=== PATIENT | female | born 1975 | race Caucasian/White ===

== ENCOUNTER → 2019-12-09 14:25 | Outpatient (CLI) | payer BC, SELFPAY ==
--- NOTE | ~2019-12-09 | XR_ITS ---
XR chest 2V DATE: 12/09/2019 14:50 INDICATION: Dyspnea. Weakness. TECHNIQUE: PA and lateral views COMPARISON: 08/08/2018 PA and lateral chest FINDINGS: Normal heart size. No hilar or mediastinal enlargement. No pulmonary infiltrate or consolid ation, pleural effusion or pulmonary vascular congestion or pneumothorax. Surgical clips, right upper quadrant. IMPRESSION: No active cardiopulmonary disease or significant change since 08/08/2018 Reviewed, dictated and finalized at location A. IMPRESSION: No active cardiopulmonary disease or significant change since 2017
--- NOTE | ~2019-12-09 | XR_ITS ---
XR cervical spine 4-5V DATE: 12/09/2019 14:49 INDICATION: Numbness of both hands TECHNIQUE: Upright AP, lateral, open mouth and bilateral oblique views COMPARISON: None FINDINGS: There is straightening and mild reversal of cervical curvature. There is moderate degenerative disc disease at C3-4, C4-5 and moderately severe degenerative disease at C5-6. There is mild degenerative disc disease at C6-7. There is uncovertebral joint spurring encroaching anteriorly upon bilateral C4, C5, C6 and to a lesse r extent C7 neural foramina. No fracture or dislocation or locked facet or prevertebral soft tissue swelling. IMPRESSION: Straightening/mild reversal cervical curvature Multilevel degenerative disease, most pronounced at C5-6 Uncovertebral joint spurring at multiple levels with encroachment upon bilateral C4-C7 neural foramin a Reviewed, dictated and finalized at location A. IMPRESSION: Straightening/mild reversal cervical curvature Multilevel degenerative disease, most pronounced at C5-6 Uncovertebral joint spurring at multiple levels with encroachment upon bilatera l C4-C7 neural foramina
== END ==
PROVIDERS: PCP Emergency Medicine; Visit Provider Emergency Medicine
DX: R05 Cough (principal); M50.322 Other cervical disc degeneration at C5-C6 level
CPT/HCPCS: 71046; 72050

== ENCOUNTER 2020-01-16 10:17 | Emergency (ER) | payer BC, SELFPAY ==
[2020-01-16 10:25] VITALS: BP 142/84; PULSE 74; RESP 14; TEMP 37; O2SAT 100
--- NOTE | 2020-01-16 10:36 | ED.DENTAL ---
HPI - Dental/Oral General Chief complaint: Dental/Oral Stated complaint: TOOTHACHE Time Seen by Provider: 01/16/20 10:19 History of Present Illness HPI Narrative: Patient presents with 4 weeks of left lower molar dental pain. She has been trying to get appointment but offices are not open due to COVID. She has been alternating ibuprofen and Tylenol without improvement. She has not had any fever chills or sweats. She does not have a private dentist. The tooth has been broken along the old filling line, but now she has facial swelling. 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 She has had her gallbladder out her tonsils out, and a . Smokes cigarettes. Takes Celexa for mood disorder, Prilosec for reflux. Complaint: tooth pain and tooth injury Onset (ago): week(s) Duration: constant Severity: severe Severity scale (1-10): 8 Relieving factors: nothing Exacerbating factors: chewing Context: history of dental caries Associated symptoms: gum swelling Related Data Home Medications Medication Instructions Recorded Confirmed citalopram 20 mg PO DAILY 01/16/20 omeprazole magnesium [Prilosec OTC] 20 mg PO DAILY 01/16/20 Allergies Allergy/AdvReac Type Severity Reaction Status Date / Time No Known Allergies Allergy Verified 01/16/20 10:28 Review of Systems Review of Systems: Narrative: CONSTITUTIONAL: Denies fever, chills, or sweats. EYES: Denies visual changes, redness, or discharge. ENT: Denies rhinorrhea, congestion, sore throat, or otalgia. CARDIOVASCULAR: Denies chest pain, palpitations, or edema. RESPIRATORY: Denies cough or dyspnea. GASTROINTESTINAL: Denies abdominal pain, nausea, vomiting, or diarrhea. GENITOURINARY: Denies dysuria or hematuria. SKIN: Denies rash or itching. MUSCULOSKELETAL: Denies back pain, joint pain, or myalgia. NEUROLOGIC: Denies headache, numbness, or weakness. PSYCHIATRIC: Denies anxiety or depression. [facility] Past Medical History Medical History (Updated 01/16/20 @ 10:43 by Vidhi Pope MD) Dental caries History of tonsillitis Surgical History Surgical History (Updated 01/16/20 @ 10:39 by Vidhi Pope MD) History of History of cholecystectomy Social History Social History (Updated 01/16/20 @ 10:39 by Vidhi Pope MD) Smoking status: Current every day smoker Alcohol intake: never Substance use: never Gender identity (if verbalized by the patient): Female Exam Narrative: Exam Narrative: GENERAL: Well-appearing, well-nourished, and in no acute distress. HEAD: Normocephalic, atraumatic. EYES: PERRLA and EOMI. ENT: Nares clear, no rhinorrhea or epistaxis. Mucous membranes moist. Swelling and tenderness about the gum around tooth 18. Slight facial swelling on the left lower cheek. NECK: Supple. CHEST: Clear to auscultation. No respiratory distress. HEART: Regular rate and rhythm. No murmur heard. Normal peripheral pulses. ABDOMEN: Soft, nontender, nondistended, normal active bowel sounds. EXTREMITIES: Normal range of motion. No edema. SKIN: Warm, dry, no rash. NEURO: No focal deficits. Alert and oriented x3. PSYCH: Normal mood and affect. Const: General: no acute distress Orientation/consciousness: patient oriented x3 Course Vital Signs Vital signs: Vital Signs Temperature 98.6 F 01/16/20 10:25 Pulse Rate 74 01/16/20 10:25 Respiratory Rate 14 01/16/20 10:25 Blood Pressure 142/84 H 01/16/20 10:25 Pulse Oximetry 100 01/16/20 10:25 Temperature 98.6 F 01/16/20 10:25 Pulse Rate 74 01/16/20 10:25 Respiratory Rate 14 01/16/20 10:25 Blood Pressure 142/84 H 01/16/20 10:25 Pulse Oximetry 100 01/16/20 10:25 MDM - Dental/Oral MDM Narrative Medical decision making narrative: She just wants to have the tooth pulled, but cannot find a dentist open with this COVID situation. I recommended she try the urgent dental clinic on [facility]. Hopefully they will be open on Saturday
[2020-01-16] MEDS: PENICILLIN V POTASSIUM 250 MG TABLET 500 MG PO (10:46)
[2020-01-16] MEDS: KETOROLAC 15 MG/ML VIAL (*BKC) IM (10:47)
[2020-01-16 10:53] VITALS: BP 138/68; PULSE 70; RESP 12; O2SAT 99
== END 2020-01-16 10:58 | disposition home or self-care (01) ==
PROVIDERS: Emergency Provider Emergency Medicine; PCP Emergency Medicine
DX: K04.7 Periapical abscess without sinus (principal); K02.9 Dental caries, unspecified; K21.9 Gastro-esophageal reflux disease without esophagitis; F17.200 Nicotine dependence, unspecified, uncomplicated
CPT/HCPCS: 96372; 99283; A9270; J1885

== ENCOUNTER 2020-03-03 15:45 | Outpatient (CLI) | payer BC, SELFPAY ==
--- NOTE | ~2020-03-03 | MM_ITS ---
EXAMINATION: MM screening andre BI w angel HISTORY: Screening mammogram TECHNIQUE: Craniocaudal and mediolateral oblique 3-D tomosynthesis images were obtained and synthetic 2-D images were generated. CAD analysis was submitted and interpreted. COMPARISON: 10/15/2018 bilateral digital screening mammogram BREAST PARENCHYMAL COMPOSITION: There are scattered areas of fibroglandular density. FINDINGS: There is no evidence of suspicious mass, calcification, or architectural distortion to sugg est malignancy in either breast. There has been no suspicious interval change. IMPRESSION: 1. No mammographic evidence of malignancy. 2. Recommend routine screening mammography in one year. BI-RADS Category 1: Negative Reviewed, dictated and finalized at location A.
== END 2020-03-03 15:46 | disposition home or self-care (01) ==
LOC: ANHIMG 15:47
PROVIDERS: PCP Emergency Medicine; Visit Provider Emergency Medicine
DX: Z12.31 Encounter for screening mammogram for malignant neoplasm of breast (principal)
CPT/HCPCS: 77063; 77067

== ENCOUNTER 2020-03-16 14:03 | Outpatient (CLI) | payer BC, SELFPAY ==
--- NOTE | ~2020-03-16 | XR_ITS ---
EXAMINATION: XR chest 2V 03/16/2020 14:18 INDICATION: Cough and chest tightness PROCEDURE: 2 view chest COMPARISON: Comparison to multiple prior studies sequentially, with oldest reviewed study dated 12/22. FINDINGS: The lungs are clear. The cardiomediastinal silhouette is within normal limits. There are no pleural effusions. There is no pneumothorax suspected. IMPRESSION: 1: NO ACUTE CARDIOPULMONARY DISEASE. Reviewed, dictated and finalized at location B.
== END 2020-03-16 14:04 | disposition home or self-care (01) ==
LOC: ANHIMG 14:08
PROVIDERS: PCP Emergency Medicine; Visit Provider Emergency Medicine
DX: R05 Cough (principal)
CPT/HCPCS: 71046

== ENCOUNTER → 2020-06-15 11:41 | Outpatient (CLI) | payer BC, SELFPAY ==
--- NOTE | ~2020-06-15 | XR_ITS ---
EXAMINATION: XR lumbar spine 2-3V DATE: 06/15/2020 12:02 INDICATION: Severe low back pain TECHNIQUE: Anteroposterior and lateral views of the lumbar spine, and cone-down lateral view of the l umbosacral junction were obtained. COMPARISON: CT, 04/08/2018 FINDINGS: There are 2 mm of anterolisthesis of L5 on S1. There is chronic severe loss of intervertebr al disc space height at L5-S1. No fracture is identified. The vertebral body heights are maintained. Small degenerative osteophytes project from the anterior endplates of multiple vertebral bodies. Ther e is moderate facet osteoarthritis of the lower lumbar spine. Cholecystectomy clips are noted in the right upper quadrant. The bowel gas pattern is normal. IMPRESSION: 1. Moderate lumbar spondylosis at L5-S1 without acute findings or significant interval change. Reviewed, dictated and finalized at location A. IMPRESSION: 1. Moderate lumbar spondylosis at L5-S1 without acute findings or significant i nterval change.
== END ==
LOC: EXPTRAD 11:48
PROVIDERS: PCP Emergency Medicine; Visit Provider Emergency Medicine
DX: M47.816 Spondylosis without myelopathy or radiculopathy, lumbar region (principal)
CPT/HCPCS: 72100

== ENCOUNTER 2020-06-22 12:36 | Emergency (ER) | payer BC, SELFPAY ==
--- NOTE | ~2020-06-22 | XR_ITS ---
EXAMINATION: XR chest 1V portable DATE: 06/22/2020 13:11 INDICATION: Right chest pain. TECHNIQUE: A single frontal view of the chest was obtained. COMPARISON: Chest 2 views 03/16/2020, chest CT 12/23/2016 FINDINGS: The chest demonstrates clear lungs without pneumonia, pleural effusion, or pneumothorax. Th e heart size is normal. IMPRESSION: 1. No acute cardiopulmonary disease. Reviewed, dictated and finalized at location A.
[2020-06-22 12:39] VITALS: BP 158/82; PULSE 101; RESP 20; TEMP 36.8; O2SAT 100
--- NOTE | 2020-06-22 12:44 | ED.CHESTPAIN ---
HPI - Chest Pain General Chief Complaint: Chest Pain Stated Complaint: chest oain Time Seen by Provider: 06/22/20 12:39 Source: patient Mode of arrival: ambulatory Limitations: no limitations History of Present Illness HPI narrative: 44 years old white female presents with right chest sharp stabbing pain started last night at 8:30 PM while laying down in bed. Pain is constant, radiating to the right upper back, denies any aggravating or relieving factors, denying any shortness of breath. Patient denies any fever, chills, nausea, vomiting, shortness of breath, abdominal pain or exposure to anybody none having COVID-19. History of asthma on breathing treatment, been a smoker for the last 25 years, does not drink or use drugs. Patient denies any recent physical activity is different than usual. Related Data Home Medications Medication Instructions Recorded Confirmed citalopram 20 mg PO DAILY 01/16/20 06/22/20 omeprazole magnesium [Prilosec OTC] 20 mg PO DAILY 01/16/20 06/22/20 tolterodine [Detrol LA] 4 mg PO DAILY 06/22/20 06/22/20 Allergies Allergy/AdvReac Type Severity Reaction Status Date / Time No Known Allergies Allergy Verified 06/22/20 12:43 Review of Systems Review of Systems: Narrative: CONSTITUTIONAL: Denies fever, chills, or sweats. EYES: Denies visual changes, redness, or discharge. ENT: Denies rhinorrhea, congestion, sore throat, or otalgia. CARDIOVASCULAR: Denies chest pain, palpitations, or edema. RESPIRATORY: Denies cough or dyspnea. GASTROINTESTINAL: Denies abdominal pain, nausea, vomiting, or diarrhea. GENITOURINARY: Denies dysuria or hematuria. SKIN: Denies rash or itching. MUSCULOSKELETAL: Denies back pain, joint pain, or myalgia. NEUROLOGIC: Denies headache, numbness, or weakness. PSYCHIATRIC: Denies anxiety or depression. [facility] Past Medical History Medical History Dental caries History of tonsillitis Surgical History Surgical History History of History of cholecystectomy Social History Social History Smoking status: Current every day smoker Alcohol intake: never Substance use: never Gender identity (if verbalized by the patient): Female Exam Narrative: Exam Narrative: General appearance: Well-developed, well-nourished Skin: Normal color Head: Normocephalic, nontraumatic Eyes: Clear conjunctiva ENT: Oropharynx normal, ears normal, nose normal Neck: Supple, nontender Chest and respiratory: Airway patent, no respiratory distress, no accessory muscle use Heart: Regular rate/rhythm Abdomen: Soft, nontender, no organomegaly, quiet bowel sounds Vascular: Normal peripheral pulses, normal capillary refill. 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, no gross motor deficit Course Course Emergency Course: Stable Vital Signs Vital signs: Vital Signs Temperature 36.8 C 06/22/20 12:39 Pulse Rate 101 H 06/22/20 12:39 Respiratory Rate 20 06/22/20 12:39 Blood Pressure 158/82 H 06/22/20 12:39 Pulse Oximetry 100 06/22/20 12:39 Temperature 36.8 C 06/22/20 12:39 Pulse Rate 101 H 06/22/20 12:39 Respiratory Rate 20 06/22/20 12:39 Blood Pressure 158/82 H 06/22/20 12:39 Pulse Oximetry 100 06/22/20 12:39 MDM - Chest Pain MDM Narrative Medical decision making narrative: Patient presents with right chest sharp stabbing pain started at rest 18 hours prior to arrival to the emergency room. Physical exam showed no significant findings, Blood work-up
--- NOTE | 2020-06-22 12:46 | ECG_ITS ---
Measurements Intervals [place] Rate: 92 P: 62 SD: 120 QRS: 65 QRSD: 83 T: 37 QT: 351 QTc: 435 Interpretive Statements SINUS RHYTHM POSSIBLE LEFT ATRIAL ENLARGEMENT BORDERLINE ECG Electronically Signed On 06-22-2020 13:13:04 CDT by Fermin Forman D.O.
[2020-06-22 12:58] LABS: Basophils Percent Auto 0.2 % (0.2-1.2); Eosinophils Percent Auto 0.2 % (0-4.4); Hematocrit 36.4 % (37.0-47.0); Hemoglobin 11.9 g/dL (12.0-15.0); Immature Granulocyte Absolute 0.75 K/mm3 (0.00-0.031); Immature Granulocyte Percent A 7.1 % (0-0.5); Lymphocytes Absolute Auto 1.36 K/mm3 (0.9-3.2); Lymphocytes Percent Auto 12.9 % (18.3-44.2); Mean Corpuscular HGB Conc 32.7 g/dl (32-36); Mean Corpuscular Hemoglobin 30.1 pg (26-34); Mean Corpuscular Volume 92.2 fl (80-100); Mean Platelet Volume 8.9 fl (7.4-10.4); Monocytes Absolute Auto 0.5 K/mm3 (0.1-0.6); Monocytes Percent Auto 4.4 % (2.6-8.5); Neutrophils Percent Auto 75.2 % (45.5-73.1); Platelet Count Result 381 k/mm3 (150-375); Red Blood Count 3.95 M/mm3 (4.2-5.4); Red Cell Distribution Width 15.7 % (11.5-14.5); White Blood Count 10.6 K/mm3 (4.5-10.0)
[2020-06-22 13:16] LABS: D Dimer 0.27 ug/mL (<0.48)
[2020-06-22 13:17] LABS: Alanine Aminotransferase 19 U/L (4-35); Alkaline Phosphatase 47 U/L (38-126); Anion Gap 6 mmol/L (8-16); Aspartate Amino Transferase 19 U/L (14-36); Bilirubin,Total 0.5 mg/dL (0.2-1.3); Blood Urea Nitrogen 18 mg/dL (7-17); Calcium 9.3 mg/dL (8.4-10.2); Carbon Dioxide 28 mmol/L (22-30); Chloride 105 mmol/L (98-107); Estimated CRCL calculation 92 ml/min; Estimated Glomerular Filt Rate > 60; Glucose 126 mg/dL (65-105); Sodium 139 mmol/L (137-145)
[2020-06-22 13:21] LABS: Troponin I < 0.012 ng/mL (0.000-0.034)
== END 2020-06-22 14:23 | disposition home or self-care (01) ==
PROVIDERS: Emergency Provider Emergency Medicine; PCP Emergency Medicine
DX: R07.9 Chest pain, unspecified (principal); F17.200 Nicotine dependence, unspecified, uncomplicated; R94.31 Abnormal electrocardiogram [ECG] [EKG]
CPT/HCPCS: 36415; 71045; 80053; 84484; 85025; 85380; 93005; 99284

== ENCOUNTER 2020-08-13 01:27 | Outpatient (CLI) | payer BC, SELFPAY ==
[2020-08-13 20:16] LABS: SARS-CoV-2 RNA PCR Negative
== END 2020-08-13 01:28 | disposition home or self-care (01) ==
LOC: ANHCOVIDDT 01:27
PROVIDERS: PCP Emergency Medicine; Visit Provider Surgery
DX: Z01.818 Encounter for other preprocedural examination (principal); Z20.828 Contact with and (suspected) exposure to other viral communicable diseases
CPT/HCPCS: 87635; C9803; U0003

== ENCOUNTER 2020-08-17 00:27 | Day surgery (SDC) | payer BC, SELFPAY ==
[2020-08-16 08:47] VITALS: BMI 29.0
--- NOTE | 2020-08-16 14:04 | WPDANESEPPF ---
Anes - Initial Pre Proc Eval Procedure: Operation Date: 08/17/20 11:15 Proposed Procedures p Lateral Internal Sphincterotomy - Hubert Lara MD Date/Time: 08/16/20 14:04 Surgeon: Hubert Lara MD Pre Op Diagnosis: anal fissure Patient Data Age: 45 Gender: F Height: 1.65 m Weight: 79 kg Allergies Allergy/AdvReac Type Severity Reaction Status Date / Time No Known Allergies Allergy Verified 08/17/20 09:22 Home Medications Medication Instructions Recorded Confirmed Type omeprazole magnesium [Prilosec OTC] 20 mg PO QAM 01/16/20 08/17/20 History tolterodine [Detrol LA] 4 mg PO QAM 06/22/20 08/17/20 History acetaminophen 325 mg tablet 325 mg PO Q6H PRN 06/30/20 08/17/20 History albuterol sulfate 90 mcg/actuation 2 puff INHALATION Q4H PRN 06/30/20 08/17/20 History aerosol inhaler fluticasone 55 mcg-salmeterol 14 2 inh INHALATION BID 06/30/20 08/17/20 History mcg/actuation breath activated powder multivitamin,[id number] 1 tablet PO DAILY 06/30/20 08/17/20 History omega-3 fatty acids 1,000 mg 1,000 mg PO DAILY 06/30/20 08/17/20 History capsule citalopram [Celexa] 40 mg PO QAM 08/16/20 08/17/20 History hydrocortisone [Proctozone-HC] 1 applic [place] BID 08/16/20 08/17/20 History Patient hx anesthesia problems: none Family hx anesthesia problems: none PMFSH Past Medical History Medical History Acid reflux Anxiety Asthma COPD (chronic obstructive pulmonary disease) Dental caries Depression GERD (gastroesophageal reflux disease) History of tonsillitis IBS (irritable bowel syndrome) Surgical History Surgical History History of History of cholecystectomy Hx of tonsillectomy Family History Family History Father Hypertension Diabetes mellitus Mother Hypertension Grandparent Breast cancer Social History Social History Smoking packs per day: 0.5 Smoking cigarettes per day: 10.0 Years smoked: 22 Smoking pack-years: 11.00 Smoking status: Current every day smoker Tobacco type: cigarettes Alcohol intake: never 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 Substance use: never Living arrangements: with family Additional living arrangements comments: AND CHILDREN Additional occupation/education comments: [employer] Gender identity (if verbalized by the patient): Female Spiritual care concerns: No Anes - Eval Final PreProcedure Day of Procedure 08/16/20 14:04 Patient weight: overweight Heart: regular rate and rhythm Lungs: clear to auscultation and normal air movement Airway: Mallampati scale class II Neurological: alert and oriented Last oral intake: >/= 8 hours ASA classification: III Emergent: no Anesthetic plan: proceed Anesthesia type and monitoring: general ETT and standard monitoring Informed Consent: The patient's anesthetic plan and its attendant risks and benefits were discussed with the patient/family/POA. Questions were solicited and answers provided to the satisfaction of the patient/family/POA.
[2020-08-17] VITALS (7 sets, daily range): BP systolic 125–144; BP diastolic 56–84; PULSE 64–79; RESP 12–20; TEMP 36.1–36.4; O2SAT 99–100
[2020-08-17] MEDS: ACETAMINOPHEN 500 MG TABLET 1000 MG PO (09:20)
[2020-08-17] MEDS: LACTATED RINGERS 1,000 ML 30 ML IV CONT (09:55)
[2020-08-17] MEDS: KETOROLAC 15 MG/ML VIAL (*BKC) IV PUSH (10:07)
--- NOTE | 2020-08-17 11:45 | WPDHPUPDATE1 ---
History and Physical Update Update Date/Time: 08/17/20 11:45 History and Physical has been reviewed, including an updated exam of the patient. There are NO changes in the patient's condition. Risks, benefits, and alternatives have been discussed and questions answered. Patient agrees to proceed with procedure.
[2020-08-17] MEDS: ceFAZolin 2 GM/D5W 50 ML 2 GM/50 ML BAG IVPB (12:12)
[2020-08-17] MEDS: BUPIVACAINE HCL 0.5% PF 30 ML VIAL 20 ML INFILTRATE (12:37)
--- NOTE | 2020-08-17 12:48 | PM.PROC ---
Procedure Note - Detailed Date of procedure: 08/17/20 Pre-op diagnosis: anal fissure Posterior midline anal fissure Post-op diagnosis: same Procedure performed: Lateral internal sphincterotomy Description of procedure: Patient was taken to surgery and induced into general anesthesia. She was then placed in prone analisa-knife position. Buttocks were taped apart. Prep and drape was carried out. A sizable, well-defined posterior midline anal fissure was easily noted. Digital rectal exam was otherwise negative. Local anesthetic was infiltrated using 20 cc deep subdermal and 20 cc intrasphincteric. A medium Hill-Ortiz anoscope was then placed. After palpating over the lower 3rd of the internal sphincter muscle, a small incision was made with the cautery. Curved clamp was used to pull up this portion of the internal sphincter muscle. This was then divided with the cautery. I checked for bleeding and there really was none. There was significant relaxation of the anal sphincter. Wound was dressed with Xeroform gauze fluffs and tape. The patient was returned to a supine position, awakened and taken to recovery in good condition. Sponge and needle counts were correct x2. Anesthesia: GETA and local (0.5% Marcaine with Exparel) Surgeon: Hubert Lara MD Gas Shovel Operator: Mason SORIANO Estimated blood loss (mL): 2 Drains: No Packing: No Pathology: none sent Complications: None Condition: stable Disposition: PACU Findings: Posterior midline anal fissure
== END 2020-08-17 14:25 | disposition home or self-care (01) ==
PROVIDERS: PCP Emergency Medicine; Visit Provider Surgery
PROC: (CPT 46080; principal; 2020-08-17 11:15)
DX: K60.2 Anal fissure, unspecified (principal); Z79.51 Long term (current) use of inhaled steroids; K21.9 Gastro-esophageal reflux disease without esophagitis; F41.9 Anxiety disorder, unspecified; J44.9 Chronic obstructive pulmonary disease, unspecified; F32.9 Major depressive disorder, single episode, unspecified; K58.9 Irritable bowel syndrome, unspecified; Z90.49 Acquired absence of other specified parts of digestive tract; J45.909 Unspecified asthma, uncomplicated; F17.210 Nicotine dependence, cigarettes, uncomplicated
CPT/HCPCS: 46080; A9270; C9290; J0330; J0690; J1100; J1885; J2250; J2405; J2704; J3010; J7120

== ENCOUNTER 2020-09-12 16:16 | Emergency (ER) | payer BC, SELFPAY ==
--- NOTE | ~2020-09-12 | XR_ITS ---
EXAMINATION: XR lumbar spine 2-3V DATE: 09/12/2020 17:30 INDICATION: Bilateral low back pain TECHNIQUE: Anteroposterior and lateral views of the lumbar spine, and cone-down lateral view of the l umbosacral junction were obtained. COMPARISON: 06/15/2020 FINDINGS: Alignment is normal. Vertebral body heights are normal. Unchanged severe disc height loss at L5-S1, m oderate disc height loss at L3-L4 and mild disc height loss at the remaining lumbar levels. Sacrum an d bilateral sacroiliac joints are unremarkable. Cholecystectomy clips in right upper quadrant. IMPRESSION: 1. No significant change in moderate lumbar spondylosis. Reviewed, dictated and finalized at location A. 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
[2020-09-12 16:43] VITALS: BP 125/80; PULSE 70; RESP 14; TEMP 36.6; O2SAT 100
--- NOTE | 2020-09-12 17:54 | ED.BACK ---
HPI - Back Pain/Injury General Chief Complaint: Back Pain/Injury Stated Complaint: severe lower back pain Time Seen by Provider: 09/12/20 17:36 Source: patient Mode of arrival: ambulatory Limitations: no limitations History of Present Illness HPI Narrative: A 45-year-old female presents to the emergency department with complaints of low back pain. Patient states that this has been going on for almost a week now. She does note that she saw her primary care physician first, was given a prescription for prescription strength ibuprofen and prednisone. She states that these are not helping. She notes that the pain is around the low back area motioning to the paraspinal lumbar musculature around L4-S1. She does endorse that certain movements seem to make it worse. Related Data Home Medications Medication Instructions Recorded Confirmed omeprazole magnesium [Prilosec OTC] 20 mg PO QAM 01/16/20 08/17/20 tolterodine [Detrol LA] 4 mg PO QAM 06/22/20 08/17/20 acetaminophen 325 mg tablet 325 mg PO Q6H PRN 06/30/20 08/17/20 albuterol sulfate 90 mcg/actuation 2 puff INHALATION Q4H PRN 06/30/20 08/17/20 aerosol inhaler fluticasone 55 mcg-salmeterol 14 2 inh INHALATION BID 06/30/20 08/17/20 mcg/actuation breath activated powder multivitamin,vp-[id number]-[id number] 1 tablet PO DAILY 06/30/20 08/17/20 omega-3 fatty acids 1,000 mg 1,000 mg PO DAILY 06/30/20 08/17/20 capsule citalopram [Celexa] 40 mg PO QAM 08/16/20 08/17/20 Allergies Allergy/AdvReac Type Severity Reaction Status Date / Time No Known Allergies Allergy Verified 09/12/20 17:18 Review of Systems Review of Systems: Narrative: CONSTITUTIONAL: Denies fever, chills, or sweats. EYES: Denies visual changes, redness, or discharge. ENT: Denies rhinorrhea, congestion, sore throat, or otalgia. CARDIOVASCULAR: Denies chest pain, palpitations, or edema. RESPIRATORY: Denies cough or dyspnea. GASTROINTESTINAL: Denies abdominal pain, nausea, vomiting, or diarrhea. GENITOURINARY: Denies dysuria or hematuria. SKIN: Denies rash or itching. MUSCULOSKELETAL: Endorses bilateral lower back lumbar pain. NEUROLOGIC: Denies headache, numbness, dizziness, or weakness. PSYCHIATRIC: Denies anxiety or depression. [facility] Past Medical History Medical History Acid reflux Anxiety Asthma COPD (chronic obstructive pulmonary disease) Dental caries Depression GERD (gastroesophageal reflux disease) History of tonsillitis IBS (irritable bowel syndrome) Surgical History Surgical History History of History of cholecystectomy Hx of tonsillectomy Family History Family History Father Hypertension Diabetes mellitus Mother Hypertension Grandparent Breast cancer Social History Social History Smoking packs per day: 0.5 Smoking cigarettes per day: 10.0 Years smoked: 22 Smoking pack-years: 11.00 Smoking status: Current every day smoker Tobacco type: cigarettes Alcohol intake: never Substance use: never Additional living arrangements comments: AND CHILDREN 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 HEAD: Normocephalic, atraumatic. EYES: PERRLA and EOMI. ENT: Nares clear, no rhinorrhea or epistaxis. Mucous membranes moist. Oropharynx without tonsillar hypertrophy exudate or other lesions. Bilateral TMs pearly bush nonbulging NECK: Supple. No adenopathy or masses. No carotid bruits or JVD CHEST: Clear to auscultation. No respiratory distress. No wheezes rales or rhonchi HEART: Regular rate and rhythm. No murmur heard. Normal peripheral
[2020-09-12] MEDS: LIDOCAINE 5% PATCH 1 PATCH TRANSDERM (18:35)
[2020-09-12] MEDS: methocarbamoL 500 MG TABLET 1000 MG PO (18:35)
[2020-09-12] MEDS: KETOROLAC (*BKC) 60 MG/2 ML VIAL IM (18:35)
[2020-09-12] MEDS: HYDROcodone/acetaminophen (*CRX) 5-325 MG TABLET 1 TAB PO (18:35)
== END 2020-09-12 18:42 | disposition home or self-care (01) ==
PROVIDERS: Emergency Provider Emergency Medicine; PCP Emergency Medicine
DX: S39.012A Strain of muscle, fascia and tendon of lower back, initial encounter (principal); K21.9 Gastro-esophageal reflux disease without esophagitis; J44.9 Chronic obstructive pulmonary disease, unspecified; K58.9 Irritable bowel syndrome, unspecified; F41.9 Anxiety disorder, unspecified; F17.210 Nicotine dependence, cigarettes, uncomplicated; X58.XXXA Exposure to other specified factors, initial encounter
CPT/HCPCS: 72100; 96372; 99283; A9270; J1885

== ENCOUNTER 2021-01-02 12:04 | Emergency (ER) | payer BC, SELFPAY ==
[2021-01-02 12:09] VITALS: BP 155/79; PULSE 100; RESP 17; TEMP 36.7; O2SAT 99
[2021-01-02] MEDS: KETOROLAC (*BKC) 60 MG/2 ML VIAL IM (12:46)
--- NOTE | 2021-01-02 12:48 | ED.BACK ---
HPI - Back Pain/Injury General Chief Complaint: Back Pain/Injury Stated Complaint: lower back pain Time Seen by Provider: 01/02/21 12:11 History of Present Illness HPI Narrative: Patient is 45-year-old female who presents to the ER with low back pain. Chronic issue for the patient. 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 No trauma. Occasionally radiates into the left buttock. No saddle anesthesia or difficulty with urination/defecation. No lower extremity weakness. She has tried taking left over prednisone and Mobic as well as afdi-prn-qasriju medications without relief. She has received cortisone injections in her back previously but has not been back to that orthopedics office. She has no fevers or chills or rash. Related Data Home Medications Medication Instructions Recorded Confirmed omeprazole magnesium [Prilosec OTC] 20 mg PO QAM 01/16/20 08/17/20 tolterodine [Detrol LA] 4 mg PO QAM 06/22/20 08/17/20 acetaminophen 325 mg tablet 325 mg PO Q6H PRN 06/30/20 08/17/20 albuterol sulfate 90 mcg/actuation 2 puff INHALATION Q4H PRN 06/30/20 08/17/20 aerosol inhaler fluticasone 55 mcg-salmeterol 14 2 inh INHALATION BID 06/30/20 08/17/20 mcg/actuation breath activated powder multivitamin,as-pwyw-mdurzewc 1 tablet PO DAILY 06/30/20 08/17/20 omega-3 fatty acids 1,000 mg 1,000 mg PO DAILY 06/30/20 08/17/20 capsule citalopram [Celexa] 40 mg PO QAM 08/16/20 08/17/20 Allergies Allergy/AdvReac Type Severity Reaction Status Date / Time No Known Allergies Allergy Verified 09/12/20 17:18 Review of Systems Review of Systems: All systems reviewed & are unremarkable except as noted in HPI and below Constitutional: Constitutional: Denies chills and Denies fever(s) Musculoskeletal: Musculoskeletal: Reports back pain and Reports muscle cramps Neurologic: Denies focal weakness and Denies numbness PMFSH Past Medical History Medical History Acid reflux Anxiety Asthma COPD (chronic obstructive pulmonary disease) Dental caries Depression GERD (gastroesophageal reflux disease) History of tonsillitis IBS (irritable bowel syndrome) Surgical History Surgical History History of History of cholecystectomy Hx of tonsillectomy Family History Family History Father Hypertension Diabetes mellitus Mother Hypertension Grandparent Breast cancer Social History Social History Smoking packs per day: 0.5 Smoking cigarettes per day: 10.0 Years smoked: 22 Smoking pack-years: 11.00 Smoking status: Current every day smoker Tobacco type: cigarettes Alcohol intake: never Substance use: never Additional living arrangements comments: AND CHILDREN Additional occupation/education comments: [employer] Gender identity (if verbalized by the patient): Female Spiritual care concerns: No Exam Narrative: Exam Narrative: GENERAL: Well-appearing, well-nourished, and in no acute distress. HEAD: Normocephalic, atraumatic. EXTREMITIES: Normal range of motion. No deformity. Back: No midline tenderness of the thoracic or lumbar spine. There is paraspinal muscular tenderness in the lumbar region bilaterally. SKIN: Warm, dry, no rash. NEURO: Alert and oriented x3. PSYCH: Normal mood and affect. Course Course Emergency Course: Discussed treatment plan and patient verbalized understanding. We will give a couple days off of work as well. Vital Signs Vital signs: Vital Signs Temperature 98.0 F 01/02/21 12:09 Pulse Rate 100 01/02/21 12:09 Respiratory Rate 17 01/02/21 12:09 Blood Pressure 155/79 H 01/02/21 12:09 Pulse Oximetry 99 01/02/21 12:09 Temperature 98.0
== END 2021-01-02 13:06 | disposition home or self-care (01) ==
PROVIDERS: Emergency Provider Emergency Medicine; PCP Emergency Medicine
DX: M54.5 Low back pain (principal); G89.29 Other chronic pain; J44.9 Chronic obstructive pulmonary disease, unspecified; K21.9 Gastro-esophageal reflux disease without esophagitis; K58.9 Irritable bowel syndrome, unspecified; F41.9 Anxiety disorder, unspecified; F32.9 Major depressive disorder, single episode, unspecified; F17.210 Nicotine dependence, cigarettes, uncomplicated
CPT/HCPCS: 96372; 99283; J1885

== ENCOUNTER 2021-01-03 16:52 | Outpatient (CLI) | payer BC, SELFPAY ==
[2021-01-03 17:46] LABS: Rheumatoid Factor < 8.6 IU/ML (<12)
[2021-01-03 18:09] LABS: Erythrocyte Sedimentation Rate 15 mm/hr (0-20)
== END 2021-01-03 16:53 | disposition home or self-care (01) ==
LOC: ANHLAB 16:54
PROVIDERS: PCP Emergency Medicine; Visit Provider Emergency Medicine
DX: M12.9 Arthropathy, unspecified (principal)
CPT/HCPCS: 36415; 85652; 86038; 86430

== ENCOUNTER 2021-01-19 16:12 | Emergency (ER) | payer BC, SELFPAY ==
[2021-01-19 16:20] VITALS: BP 151/84; PULSE 74; RESP 17; TEMP 36.2; O2SAT 99
--- NOTE | 2021-01-19 16:28 | ED.GENADULT ---
HPI - General Adult General Chief complaint: Dental/Oral Stated complaint: Fungus in mouth Time Seen by Provider: 01/19/21 16:29 Source: patient Mode of arrival: ambulatory Limitations: no limitations History of Present Illness HPI narrative: Anat Martin is a 45 yo female with a hx of spondylosis, asthma, anxiety and depression, that states has white spots all over her mouth and palate - started after receiving cortisone shots on Saturday. Related Data Home Medications Medication Instructions Recorded Confirmed omeprazole magnesium [Prilosec OTC] 20 mg PO QAM 01/16/20 08/17/20 tolterodine [Detrol LA] 4 mg PO QAM 06/22/20 08/17/20 albuterol sulfate 90 mcg/actuation 2 puff INHALATION Q4H PRN 06/30/20 08/17/20 aerosol inhaler citalopram [Celexa] 40 mg PO QAM 08/16/20 08/17/20 Allergies Allergy/AdvReac Type Severity Reaction Status Date / Time No Known Allergies Allergy Verified 01/19/21 16:52 Review of Systems Review of Systems: Narrative: CONSTITUTIONAL: Denies fever, chills, sweats. EYES: Denies visual changes, redness, discharge. ENT: Denies rhinorrhea, congestion, sore throat, otalgia. CARDIOVASCULAR: Denies chest pain, palpitations, edema. RESPIRATORY: Denies dyspnea, wheezing, cough GASTROINTESTINAL: Denies abdominal pain, nausea, vomiting, diarrhea. GENITOURINARY: Denies dysuria, hematuria, abnormal discharge SKIN: Denies rash or itching. NEUROLOGIC: Denies numbness, or focal weakness. PSYCHIATRIC: Denies anxiety or depression. Warts present in her mouth PMFSH Past Medical History Medical History Acid reflux Anxiety Asthma COPD (chronic obstructive pulmonary disease) Dental caries Depression GERD (gastroesophageal reflux disease) History of tonsillitis IBS (irritable bowel syndrome) Surgical History Surgical History History of History of cholecystectomy Hx of tonsillectomy Family History Family History Father Hypertension Diabetes mellitus Mother Hypertension Grandparent Breast cancer Social History Social History Smoking packs per day: 0.5 Smoking cigarettes per day: 10.0 Years smoked: 22 Smoking pack-years: 11.00 Smoking status: Current every day smoker Tobacco type: e-cigarettes/vaping Alcohol intake: never Substance use: never Additional living arrangements comments: AND CHILDREN Additional occupation/education comments: [employer] Gender identity (if verbalized by the patient): Female Spiritual care concerns: No Comments At time of signature, I agree with nursing past medical, surgical, social and family history. There is no relevant family history pertinent to the presenting complaint. Patient has elevated blood pressure and her PCP is aware Exam Narrative: Exam Narrative: GENERAL: This is a well-nourished, well-developed patient, in mild distress. HEAD: normocephalic, atraumatic. EYES: PERRL. Sclera clear/white. Vision is grossly intact. EARS: External ears normal, Hearing grossly intact. NOSE: External nose normal without nasal discharge, nares without redness, no rhinorrhea. THROAT: Mucous membranes moist, posterior pharynx small white spots, white coating on tongue NECK: Neck supple, non-tender CARDIOVASCULAR: Regular rate and rhythm without murmurs, gallops, or rubs. RESPIRATORY: Clear to auscultation. Breath sounds equal bilaterally. No wheezes, rales, or rhonchi. GASTROINTESTINAL: Abdomen soft, non-tender, SKIN: warm, intact with no suspicious lesions or rash, good texture and turgor. NEURO: awake, alert, and oriented to person, place and time. There were no obvious focal neurologic abnormalities. Steady gait EXTREMITIES: Normal range of motion. BACK: Nontender without deformity Course
[2021-01-19 16:35] VITALS: BP 128/69; PULSE 75; RESP 20; TEMP 36.7; O2SAT 100
== END 2021-01-19 16:50 | disposition home or self-care (01) ==
PROVIDERS: Emergency Provider Nurse Practitioner; PCP Emergency Medicine
DX: B37.0 Candidal stomatitis (principal); K21.9 Gastro-esophageal reflux disease without esophagitis; F41.9 Anxiety disorder, unspecified; J44.9 Chronic obstructive pulmonary disease, unspecified; F32.9 Major depressive disorder, single episode, unspecified
CPT/HCPCS: 99213; G0463

== ENCOUNTER 2021-01-23 16:44 | Outpatient (CLI) | payer BC, SELFPAY ==
[2021-01-23 17:49] LABS: Hematocrit 37.3 % (37.0-47.0); Mean Corpuscular HGB Conc 32.2 g/dl (32-36); Mean Corpuscular Hemoglobin 30.9 pg (26-34); Mean Corpuscular Volume 96.1 fl (80-100); Mean Platelet Volume 9.5 fl (7.4-10.4); Platelet Count Result 240 k/mm3 (150-375); Red Blood Count 3.88 M/mm3 (4.2-5.4); Red Cell Distribution Width 15.5 % (11.5-14.5); White Blood Count 9.9 K/mm3 (4.5-10.0)
[2021-01-23 17:59] LABS: Alanine Aminotransferase 54 U/L (4-35); Albumin Level 4.1 g/dL (3.5-5.1); Alkaline Phosphatase 42 U/L (38-126); Anion Gap 0 mmol/L (8-16); Aspartate Amino Transferase 52 U/L (14-36); Bilirubin,Total 0.4 mg/dL (0.2-1.3); Blood Urea Nitrogen 12 mg/dL (7-17); Calcium 9.2 mg/dL (8.4-10.2); Carbon Dioxide 35 mmol/L (22-30); Chloride 101 mmol/L (98-107); Estimated Glomerular Filt Rate > 60; Glucose 77 mg/dL (65-105); Potassium 4.3 mmol/L (3.4-5.0); Sodium 136 mmol/L (137-145)
[2021-01-23 18:31] LABS: Cortisol Random 0.98 ug/dL
[2021-01-23 19:07] LABS: Free T4 Free Thyroxine 0.75 ng/mL (0.78-2.19)
[2021-01-27 04:32] LABS: Thyroid Peroxidase Antibodies <1 IU/mL (<9)
== END 2021-01-23 16:45 | disposition home or self-care (01) ==
LOC: ANHLAB 16:46
PROVIDERS: PCP Emergency Medicine; Visit Provider Emergency Medicine
DX: I10 Essential (primary) hypertension (principal)
CPT/HCPCS: 36415; 80053; 82533; 84439; 84443; 84480; 85027; 86376

== ENCOUNTER 2021-02-02 07:33 | Emergency (ER) | payer BC, SELFPAY ==
--- NOTE | ~2021-02-02 | XR_ITS ---
EXAMINATION: XR chest 2V DATE: 02/02/2021 08:44 INDICATION: Presyncope. Shaky feeling. TECHNIQUE: PA and lateral views of the chest were obtained. COMPARISON: Chest radiograph dated 06/22/2020 FINDINGS: The lungs remain clear with no focal airspace opacities, pulmonary edema, pleural effusion or pneumot horax. The cardiomediastinal silhouette is normal. Cholecystectomy clips in the right upper quadrant. IMPRESSION: 1. No acute cardiopulmonary disease. Reviewed, dictated and finalized at location A.
[2021-02-02 07:36] VITALS: BP 132/66; PULSE 96; RESP 20; TEMP 36.4; O2SAT 100
--- NOTE | 2021-02-02 08:03 | ECG_ITS ---
Measurements Intervals [place] Rate: 74 P: 74 UT: 144 QRS: 73 QRSD: 82 T: 48 QT: 395 QTc: 440 Interpretive Statements SINUS RHYTHM POSSIBLE RIGHT ATRIAL ENLARGEMENT BASELINE ARTIFACT- II, III, AVF BORDERLINE ECG Electronically Signed On 02-02-2021 9:48:06 CDT by Fermin Forman D.O.
--- NOTE | 2021-02-02 08:03 | ED.GENADULT ---
HPI - General Adult General Chief complaint: Unspecified Stated complaint: chills, shaky Time Seen by Provider: 02/02/21 08:02 Source: patient Mode of arrival: ambulatory Limitations: no limitations History of Present Illness HPI narrative: Patient is a 45-year-old female with history of lumbar spondylosis who presents for evaluation of general malaise and shakiness. Patient states that she has felt unwell over the past 2 weeks since receiving steroid injections for lower back pain. Patient states after the steroid injections around November 08, patient developed oral candidiasis which was treated with mouthwashes. She states that she has felt jittery, intermittently weak. Patient was seen by her primary care physician and had routine lab draw which showed abnormal liver enzymes per the patient. Her primary care physician encouraged her to come to the emergency department for evaluation since she was not feeling at her baseline. Patient denies any current chest pain or shortness of breath. No cough. No fever or chills. She reports nausea without vomiting. Patient states at work the other day she felt very lightheaded and dizzy as if she may pass out but never lost consciousness. No chest pain with that episode. Patient denies any recent car or air travel. No history of Covid. No leg swelling or calf pain. She does use e-cigarettes. She denies other drug use or any alcohol use. She denies focal weakness or numbness. No difficulty with ambulation. No headache pain or vision changes. Patient states she currently just feels unwell. Related Data Home Medications Medication Instructions Recorded Confirmed omeprazole magnesium [Prilosec OTC] 20 mg PO QAM 01/16/20 01/19/21 tolterodine [Detrol LA] 4 mg PO QAM 06/22/20 01/19/21 albuterol sulfate 90 mcg/actuation 2 puff INHALATION Q4H PRN 06/30/20 01/19/21 aerosol inhaler citalopram [Celexa] 40 mg PO QAM 08/16/20 01/19/21 Allergies Allergy/AdvReac Type Severity Reaction Status Date / Time No Known Allergies Allergy Verified 02/02/21 10:06 Review of Systems Review of Systems: Narrative: CONSTITUTIONAL: Denies fever, chills, or sweats. EYES: Denies visual changes, redness, or discharge. ENT: Denies rhinorrhea, congestion, sore throat, or otalgia. CARDIOVASCULAR: Denies chest pain, palpitations, or edema. RESPIRATORY: Denies cough or dyspnea. GASTROINTESTINAL: Denies abdominal pain, nausea, vomiting, or diarrhea. GENITOURINARY: Denies dysuria or hematuria. SKIN: Denies rash or itching. MUSCULOSKELETAL: Reports chronic lower back pain, joint pain, reports general malaise NEUROLOGIC: Denies headache, numbness, or weakness. PSYCHIATRIC: Denies anxiety or depression. [facility] Past Medical History Medical History Acid reflux Anxiety Asthma COPD (chronic obstructive pulmonary disease) Dental caries Depression GERD (gastroesophageal reflux disease) History of tonsillitis IBS (irritable bowel syndrome) Surgical History Surgical History History of History of cholecystectomy Hx of tonsillectomy Family History Family History Father Hypertension Diabetes mellitus Mother Hypertension Grandparent Breast cancer Social History Social History Smoking packs per day: 0.5 Smoking cigarettes per day: 10.0 Years smoked: 22 Smoking pack-years: 11.00 Smoking status: Current every day smoker Tobacco type: e-cigarettes/vaping Alcohol intake: never Substance use: never Additional living arrangements comments: AND CHILDREN Additional occupation/education comments: [employer] Gender identity (if verbalized by the patient): Female Spiritual care concerns: No Exam Narrative: Exam Narrative: GENERAL: Awake, al
[2021-02-02 09:23] VITALS: PULSE 70
[2021-02-02 09:43] LABS: Basophils Percent Auto 0.4 % (0.2-1.2); Eosinophils Absolute Auto 0.1 K/mm3 (0-0.3); Eosinophils Percent Auto 1.1 % (0-4.4); Hematocrit 45.6 % (37.0-47.0); Hemoglobin 14.5 g/dL (12.0-15.0); Immature Granulocyte Absolute 0.08 K/mm3 (0.00-0.031); Lymphocytes Absolute Auto 1.38 K/mm3 (0.9-3.2); Lymphocytes Percent Auto 17.5 % (18.3-44.2); Mean Corpuscular HGB Conc 31.8 g/dl (32-36); Mean Corpuscular Hemoglobin 30.8 pg (26-34); Mean Corpuscular Volume 96.8 fl (80-100); Mean Platelet Volume 9.3 fl (7.4-10.4); Monocytes Absolute Auto 0.6 K/mm3 (0.1-0.6); Monocytes Percent Auto 7.5 % (2.6-8.5); Neutrophils Absolute Auto 5.7 K/mm3 (1.3-6.7); Neutrophils Percent Auto 72.5 % (45.5-73.1); Platelet Count Result 208 k/mm3 (150-375); Red Blood Count 4.71 M/mm3 (4.2-5.4); White Blood Count 7.9 K/mm3 (4.5-10.0)
[2021-02-02 09:49] LABS: Add Urine Microscopic? NO; Appearance Urine Clear (Clear); Bilirubin Urine Negative (Negative); Blood Urine Negative (Negative); Color Urine Yellow (Yellow); Glucose Urine UA Negative (Negative); Ketones Urine Negative (Negative); Leukocyte Esterase Ur Negative LEU/UL (Negative); Nitrate Urine Negative (Negative); Protein Urine Negative (Negative); Urobilinogen Urine Negative mg/dL (<2.0)
[2021-02-02 10:03] LABS: Alanine Aminotransferase 31 U/L (4-35); Albumin Level 4.6 g/dL (3.5-5.1); Alkaline Phosphatase 51 U/L (38-126); Anion Gap 9 mmol/L (8-16); Aspartate Amino Transferase 26 U/L (14-36); Bilirubin,Total 0.6 mg/dL (0.2-1.3); Blood Urea Nitrogen 14 mg/dL (7-17); Calcium 10.4 mg/dL (8.4-10.2); Carbon Dioxide 27 mmol/L (22-30); Chloride 106 mmol/L (98-107); Creatine Kinase 57 U/L (30-135); Estimated CRCL calculation 92 ml/min; Estimated Glomerular Filt Rate > 60; Glucose 100 mg/dL (65-105); Potassium 3.6 mmol/L (3.4-5.0); Sodium 142 mmol/L (137-145)
[2021-02-02 10:04] LABS: D Dimer 0.27 ug/mL (<0.48)
[2021-02-02 10:15] LABS: Troponin I < 0.012 ng/mL (0.000-0.034)
[2021-02-02 10:23] LABS: Thyroid Stimulating Hormone 0.769 uIU/mL (0.465-4.680)
== END 2021-02-02 11:12 | disposition home or self-care (01) ==
PROVIDERS: Emergency Provider Emergency Medicine; PCP Emergency Medicine
DX: R55 Syncope and collapse (principal); J44.9 Chronic obstructive pulmonary disease, unspecified; K21.9 Gastro-esophageal reflux disease without esophagitis; F41.9 Anxiety disorder, unspecified; K58.9 Irritable bowel syndrome, unspecified; F17.290 Nicotine dependence, other tobacco product, uncomplicated; R94.31 Abnormal electrocardiogram [ECG] [EKG]; M47.816 Spondylosis without myelopathy or radiculopathy, lumbar region
CPT/HCPCS: 36415; 71046; 80053; 81003; 82550; 84443; 84484; 85025; 85380; 93005; 99284

== ENCOUNTER 2021-03-24 15:41 | Outpatient (CLI) | payer BC, SELFPAY ==
[2021-03-24 17:07] LABS: Erythrocyte Sedimentation Rate 13 mm/hr (0-20)
[2021-03-24 17:11] LABS: Alanine Aminotransferase 13 U/L (4-35); Albumin Level 4.4 g/dL (3.5-5.1); Alkaline Phosphatase 49 U/L (38-126); Anion Gap 11 mmol/L (8-16); Aspartate Amino Transferase 19 U/L (14-36); Bilirubin,Total 0.5 mg/dL (0.2-1.3); Blood Urea Nitrogen 14 mg/dL (7-17); Calcium 9.7 mg/dL (8.4-10.2); Carbon Dioxide 24 mmol/L (22-30); Chloride 102 mmol/L (98-107); Estimated Glomerular Filt Rate > 60; Glucose 75 mg/dL (65-110); Potassium 4.1 mmol/L (3.4-5.0); Sodium 137 mmol/L (137-145)
[2021-03-24 17:28] LABS: Free T4 Free Thyroxine 0.85 ng/mL (0.78-2.19)
[2021-03-24 17:42] LABS: Cortisol Random 3.25 ug/dL; Hepatitis B Surface Antigen Negative (Negative)
[2021-03-24 17:48] LABS: HAV RESULT Negative (Negative); Hepatitis B Core IgM Result Negative (Negative)
[2021-03-24 17:59] LABS: Hepatitis C Virus Antibody Negative (Negative)
[2021-03-27 11:24] LABS: Rheumatoid Factor < 8.6 IU/ML (<12)
[2021-03-29 05:57] LABS: Prolactin 8.3 ng/mL (***)
[2021-03-29 23:20] LABS: Adrenocorticotropic Hormone <5 pg/mL (6-50)
== END 2021-03-24 15:42 | disposition home or self-care (01) ==
PROVIDERS: PCP Emergency Medicine; Visit Provider Emergency Medicine
DX: R63.5 Abnormal weight gain (principal); R79.89 Other specified abnormal findings of blood chemistry; R94.5 Abnormal results of liver function studies
CPT/HCPCS: 36415; 80053; 80074; 82024; 82533; 84146; 84439; 84443; 85652; 86038; 86430

== ENCOUNTER → 2021-07-26 11:50 | Outpatient (CLI) | payer BC, SELFPAY ==
--- NOTE | ~2021-07-26 | XR_ITS ---
EXAMINATION: XR chest 2V EXAM DATE: 07/26/2021 12:04 INDICATION: Cough and wheezing. TECHNIQUE: Frontal and lateral projections of the chest obtained and reviewed. Comparison is made to prior examination from 02/02/2021. FINDINGS: There are cholecystectomy clips. The lungs are clear. There are no pleural effusions. T he cardiomediastinal silhouette is within normal limits. There is no pneumothorax suspected. The bina reginaldo and soft tissues are unremarkable. IMPRESSION: No acute cardiopulmonary findings. Reviewed, dictated and finalized at location A. [employer]
== END ==
LOC: EXPTRAD 11:52
PROVIDERS: PCP Emergency Medicine; Visit Provider Emergency Medicine
DX: R05.9 Cough, unspecified (principal); R06.2 Wheezing
CPT/HCPCS: 71046

== ENCOUNTER 2021-07-26 14:13 | Emergency (ER) | payer BC, SELFPAY ==
[2021-07-26 14:16] VITALS: BP 135/78; PULSE 85; RESP 18; TEMP 36.2; O2SAT 99
[2021-07-26 14:36] LABS: Hematocrit 41.5 % (37.0-47.0); Hemoglobin 13.3 g/dL (12.0-15.0); Mean Corpuscular Hemoglobin 30.6 pg (26-34); Mean Corpuscular Volume 95.4 fl (80-100); Mean Platelet Volume 9.2 fl (7.4-10.4); Platelet Count Result 387 k/mm3 (150-375); Red Blood Count 4.35 M/mm3 (4.2-5.4); Red Cell Distribution Width 14.1 % (11.5-14.5); White Blood Count 14.8 K/mm3 (4.5-10.0)
--- NOTE | 2021-07-26 15:02 | ED.GENADULT ---
HPI - General Adult General Chief complaint: Upper Respiratory Infection Stated complaint: covid symptoms, + exposure Time Seen by Provider: 07/26/21 14:53 Source: RN notes reviewed History of Present Illness HPI narrative: Patient presents emergency department from home for cough. Patient states that she began to become ill 2 days ago states the cough is green sputum rhinorrhea and loss of taste and smell she states that her son was Covid +3 days ago states she did receive the [employer] Covid vaccination she denies any fevers or chills chest pain abdominal pain nausea vomiting or any other symptoms states intermittent shortness of breath. Related Data Home Medications Medication Instructions Recorded Confirmed omeprazole magnesium [Prilosec OTC] 20 mg PO QAM 01/16/20 01/19/21 tolterodine [Detrol LA] 4 mg PO QAM 06/22/20 01/19/21 albuterol sulfate 90 mcg/actuation 2 puff INHALATION Q4H PRN 06/30/20 01/19/21 aerosol inhaler citalopram [Celexa] 40 mg PO QAM 08/16/20 01/19/21 Allergies Allergy/AdvReac Type Severity Reaction Status Date / Time No Known Allergies Allergy Verified 02/02/21 10:06 Review of Systems Review of Systems: Gen.: Denies fevers or chills ENT: Reports congestion Respiratory: See HPI CV: Denies chest pain or palpitations GI: Denies abdominal pain nausea, emesis or diarrhea Musculoskeletal: Denies back pain or muscle pain Neuro: Denies numbness, tingling, weakness or focal weakness Skin: Denies rash Except as documented, all other systems reviewed and negative [facility] Past Medical History Medical History Acid reflux Anxiety Asthma COPD (chronic obstructive pulmonary disease) Dental caries Depression GERD (gastroesophageal reflux disease) History of tonsillitis IBS (irritable bowel syndrome) Surgical History Surgical History History of History of cholecystectomy Hx of tonsillectomy Family History Family History Father Hypertension Diabetes mellitus Mother Hypertension Grandparent Breast cancer Social History Social History Smoking packs per day: 0.5 Smoking cigarettes per day: 10.0 Years smoked: 22 Smoking pack-years: 11.00 Smoking status: Current every day smoker Tobacco type: e-cigarettes/vaping Alcohol intake: never 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 Substance use: never Additional living arrangements comments: AND CHILDREN 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 ABDOMINAL: Soft, nontender, nondistended, no rebound or guarding MUSCULOSKELETAl: Moves all extremities. No clubbing, cyanosis or edema. NEURO: Awake and alert. Following commands, speech normal, no focal deficits SKIN:: Warm, dry. No rashes lesions or abrasions PSYCHIATRIC: Normal affect/mood, Course Course Emergency Course: Reviewed chest x-ray obtained as outpatient today showing no acute process Patient with walking pulse ox in ED oxygen saturations staying greater than 95% during the entire time Discussed with patient results of workup and diagnosis. Discussed need for follow-up with primary care, proper use of medication, and reasons to return to the emergency department. Patient understands and agrees to current treatment plan Vital Signs Vital signs: Vital Signs Temperature 97.2 F L 07/26/21 14:16 Pulse Rate 85 11/2
[2021-07-26] MEDS: ALBUTEROL SULFATE (*SP) AEROSOL 1 PUFF 2 PUFF INHALATION (15:08)
[2021-07-26] MEDS: predniSONE 20 MG TABLET 60 MG PO (15:24)
[2021-07-26 15:29] VITALS: O2SAT 95
[2021-07-26 15:35] LABS: Platelet Estimate Increased (Adequate)
[2021-07-26 15:55] LABS: Anion Gap 6 mmol/L (8-16); Blood Urea Nitrogen 15 mg/dL (7-17); Calcium 9.7 mg/dL (8.4-10.2); Carbon Dioxide 31 mmol/L (22-30); Chloride 99 mmol/L (98-107); Estimated CRCL calculation 82 ml/min; Estimated Glomerular Filt Rate > 60; Glucose 120 mg/dL (65-110); Potassium 4.1 mmol/L (3.4-5.0); Sodium 136 mmol/L (137-145)
[2021-07-26 16:56] VITALS: BP 131/84; PULSE 84; RESP 12; O2SAT 98
--- NOTE | 2021-07-26 16:57 | PC.NURSE ---
Pt. ambulated with walking pulse ox. Pt. oxygen saturations remained above 95%. ERP notified.
[2021-07-27 15:23] LABS: SARS-CoV-2 RNA PCR Negative
== END 2021-07-26 16:59 | disposition home or self-care (01) ==
PROVIDERS: Emergency Provider Emergency Medicine; PCP Emergency Medicine
DX: R05.9 Cough, unspecified (principal); Z20.822 Contact with and (suspected) exposure to COVID-19; K21.9 Gastro-esophageal reflux disease without esophagitis; J44.9 Chronic obstructive pulmonary disease, unspecified; K58.9 Irritable bowel syndrome, unspecified; F41.9 Anxiety disorder, unspecified; F32.A Depression, unspecified; F17.290 Nicotine dependence, other tobacco product, uncomplicated
CPT/HCPCS: 36415; 80048; 85025; 99283; A9270; C9803; J7512; U0003; U0005

== ENCOUNTER 2021-08-20 10:54 | Emergency (ER) | payer BC, SELFPAY ==
--- NOTE | ~2021-08-20 | XR_ITS ---
EXAMINATION: XR shoulder LT min 2V DATE: 08/20/2021 13:18 INDICATION: Left shoulder pain. TECHNIQUE: 4 views of left shoulder were obtained. COMPARISON: None. FINDINGS: Bone alignment is normal. No fracture. Glenohumeral joint is normal. There is mild acromioc lavicular joint osteoarthritis. IMPRESSION: 1. Mild left acromioclavicular joint osteoarthritis. Reviewed, dictated and finalized at location A. SOLUTION ARCHITECT
--- NOTE | ~2021-08-20 | XR_ITS ---
EXAMINATION: [id number] DATE: 08/20/2021 13:18 INDICATION: Cervical radiculopathy. TECHNIQUE: 2 views of cervical spine were obtained. COMPARISON: Cervical spine radiograph 12/09/2019 FINDINGS: There is 11 degrees levoscoliosis of cervicothoracic spine. There is 2 mm retrolisthesis of C4 on C5, C5 on C6, and C6 on C7. Vertebral body heights are normal. There is moderately decreased d isc height at C3-C4 and severely decreased disc height from C4-C5 through C6-C7. There is multilevel uncovertebral joint osteoarthritis, severe bilaterally from C3-C4 through C6-C7. There is mild centra l canal stenosis at C3-C4, C4-C5, C5-C6, and C6-C7. No prevertebral soft tissue swelling. IMPRESSION: 1. Worsened severe cervical spondylosis. 2. Cervicothoracic levoscoliosis. Reviewed, dictated and finalized at location A. WORKER
[2021-08-20 11:22] VITALS: BP 149/93; PULSE 118; RESP 18; TEMP 36.8; O2SAT 100
--- NOTE | 2021-08-20 12:59 | ED.GENADULT ---
HPI - General Adult General Chief complaint: Extremity Problem,Nontraumatic Stated complaint: lt shoulder pain x 2 weeks Time Seen by Provider: 08/20/21 11:31 Source: patient Mode of arrival: ambulatory Limitations: no limitations History of Present Illness HPI narrative: Patient presents for evaluation of left shoulder pain for the last 2 weeks. She cannot identify any precipitating cause or injury. She woke from sleep with her symptoms. Pain is constant, shooting down the left upper extremity, rated 9 out of 10 in severity. She reports numbness in the first second and third digits of the left hand. She is left-hand dominant. She states she has some chronic neck pain, not worse as of late. She has been taking meloxicam for her pain with minimal improvements in her symptoms or after. No loss of range of motion but movement makes her pain worse. No additional complaints or concerns. Related Data Home Medications Medication Instructions Recorded Confirmed omeprazole magnesium [Prilosec OTC] 20 mg PO QAM 01/16/20 01/19/21 tolterodine [Detrol LA] 4 mg PO QAM 06/22/20 01/19/21 albuterol sulfate 90 mcg/actuation 2 puff INHALATION Q4H PRN 06/30/20 01/19/21 aerosol inhaler citalopram [Celexa] 40 mg PO QAM 08/16/20 01/19/21 Allergies Allergy/AdvReac Type Severity Reaction Status Date / Time No Known Allergies Allergy Verified 08/20/21 12:26 Review of Systems Review of Systems: CONSTITUTIONAL: Denies fever, chills, or sweats. EYES: Denies visual changes, redness, or discharge. ENT: Denies rhinorrhea, congestion, sore throat, or otalgia. CARDIOVASCULAR: Denies chest pain, palpitations, or edema. RESPIRATORY: Denies cough or dyspnea. GASTROINTESTINAL: Denies abdominal pain, nausea, vomiting, or diarrhea. GENITOURINARY: Denies dysuria or hematuria. SKIN: Denies rash or itching. MUSCULOSKELETAL: Reports neck pain and left shoulder pain radiating down left upper extremity. Denies back pain. NEUROLOGIC: Reports numbness in 1st, 2nd and 3rd digit of left hand. Denies headache, dizziness, or weakness. PSYCHIATRIC: Denies anxiety or depression. [facility] Past Medical History Medical History Acid reflux Anxiety Asthma COPD (chronic obstructive pulmonary disease) Dental caries Depression GERD (gastroesophageal reflux disease) History of tonsillitis IBS (irritable bowel syndrome) Surgical History Surgical History History of History of cholecystectomy Hx of tonsillectomy Family History Family History Father Hypertension Diabetes mellitus Mother Hypertension Grandparent Breast cancer Social History Social History Smoking packs per day: 0.5 Smoking cigarettes per day: 10.0 Years smoked: 22 Smoking pack-years: 11.00 Smoking status: Current every day smoker Tobacco type: e-cigarettes/vaping Alcohol intake: never 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 Substance use: never Additional living arrangements comments: AND CHILDREN 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 HEAD: Normocephalic, atraumatic. EYES: PERRLA and EOMI. ENT: Nares clear, no rhinorrhea or epistaxis. Mucous membranes moist. Oropharynx without tonsillar hypertrophy exudate or other lesions. Bilateral TMs pearly bush nonbulging NECK: Supple. No adenopathy or masses. No carotid bruits or JVD. No tenderness in the midline or paraspinous muscles bilaterally of the cervical spine or over the trapezius muscles. CHEST: Clear to auscultation. No respiratory distress. No wheezes ra
[2021-08-20] MEDS: CYCLOBENZAPRINE HCL 10 MG TABLET PO (13:04)
[2021-08-20] MEDS: HYDROcodone/acetaminophen (*CRX) 5-325 MG TABLET 2 TAB PO (13:04)
== END 2021-08-20 14:09 | disposition home or self-care (01) ==
PROVIDERS: Emergency Provider Nurse Practitioner; PCP Emergency Medicine
DX: M19.012 Primary osteoarthritis, left shoulder (principal); M47.9 Spondylosis, unspecified; K21.9 Gastro-esophageal reflux disease without esophagitis; J45.909 Unspecified asthma, uncomplicated
CPT/HCPCS: 72040; 73030; 99284; A9270

== ENCOUNTER 2021-10-23 10:57 | Emergency (ER) | payer OTHER, BC, SELFPAY ==
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
[2021-10-23 11:14] VITALS: BP 158/79; PULSE 85; RESP 16; TEMP 36.9; O2SAT 96
--- NOTE | 2021-10-23 11:47 | ECG_ITS ---
Measurements Intervals [place] Rate: 74 P: 60 [place]: 119 QRS: 83 QRSD: 93 T: 24 QT: 407 QTc: 453 Interpretive Statements SINUS RHYTHM WITH SHORT [place] INTERVAL POSSIBLE LEFT ATRIAL ENLARGEMENT BASELINE ARTIFACT- I, III, AVR, AVL, AVF, V1, V4 BORDERLINE ECG Electronically Signed On 10-23-2021 13:11:48 CONCRETE WALL GRINDER OPERATOR by Fermin Forman D.O.
[2021-10-23] MEDS: IBUPROFEN 400 MG TABLET 800 MG PO (12:33)
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
[2021-10-23 13:03] VITALS: TEMP 36.9
[2021-10-23 13:19] LABS: Add Urine Microscopic? NO; Appearance Urine Clear (Clear); Bilirubin Urine Negative (Negative); Blood Urine Negative (Negative); Color Urine Straw (Yellow); Glucose Urine UA Negative (Negative); Ketones Urine Negative (Negative); Leukocyte Esterase Ur Negative LEU/UL (Negative); Nitrate Urine Negative (Negative); Protein Urine Negative (Negative); Specific Grav Ur 1.005 (1.001-1.035); Urobilinogen Urine Negative mg/dL (<2.0)
[2021-10-23] MEDS: HYDROcodone/acetaminophen (*CRX) 5-325 MG TABLET 1 TAB PO (14:01)
[2021-10-23] MEDS: ONDANSETRON HCL ODT 4 MG TABLET PO (14:01)
--- NOTE | 2021-10-23 14:20 | PC.NURSE ---
Per EDMarcela Johnston via verbal order read-back, apply right posterior short leg for ankle support.
[2021-10-23 14:31] VITALS: TEMP 36.9
[2021-10-23 14:45] VITALS: BP 146/76; PULSE 76; RESP 18; O2SAT 97
== END 2021-10-23 14:49 | disposition home or self-care (01) ==
PROVIDERS: Emergency Provider General Practice; PCP Emergency Medicine
DX: S82.891A Other fracture of right lower leg, initial encounter for closed fracture (principal); S80.12XA Contusion of left lower leg, initial encounter; S80.11XA Contusion of right lower leg, initial encounter; S40.212A Abrasion of left shoulder, initial encounter; J44.9 Chronic obstructive pulmonary disease, unspecified; K58.9 Irritable bowel syndrome, unspecified; K21.9 Gastro-esophageal reflux disease without esophagitis; F41.9 Anxiety disorder, unspecified; F32.A Depression, unspecified; F17.290 Nicotine dependence, other tobacco product, uncomplicated; R94.31 Abnormal electrocardiogram [ECG] [EKG]; V43.52XA Car driver injured in collision with other type car in traffic accident, initial encounter
CPT/HCPCS: 29515; 71046; 73030; 73590; 73610; 81003; 81025; 93005; 99284; A9270

== ENCOUNTER 2021-11-21 07:04 | Outpatient (CLI) | payer BC, SELFPAY ==
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
== END 2021-11-21 07:05 ==
LOC: MICIMG 07:04
PROVIDERS: PCP Emergency Medicine; Visit Provider Nurse Practitioner Adult Health
DX: S93.421A Sprain of deltoid ligament of right ankle, initial encounter (principal); X58.XXXA Exposure to other specified factors, initial encounter
CPT/HCPCS: 73721

== ENCOUNTER 2022-02-26 12:07 | Emergency (ER) | payer SELFPAY ==
--- NOTE | ~2022-02-26 | XR_ITS ---
XR lumbar spine min 4V DATE: 02/26/2022 15:25 INDICATION: Ground-level fall. Low back pain. TECHNIQUE: AP, lateral, bilateral oblique views and coned lateral lumbosacral view COMPARISON: 09/12/2020 lumbar spine FINDINGS: There is severe degenerative disease at L5-S1. There is moderate degenerative disc disease at L3-4. No fracture or bone destruction, spondylolysis or spondylolisthesis. The lumbar pedicles are intact. The sacral iliac joints are normal. Status post cholecystectomy. IMPRESSION: Degenerative disc disease, most severe at L5-S1; little interval change since 09/12/2020 Reviewed, dictated and finalized at location B. IMPRESSION: Degenerative disc disease, most severe at L5-S1; little interval ch eric since 09/12/2020
[2022-02-26 12:29] VITALS: BP 133/75; PULSE 93; RESP 16; TEMP 37.1; O2SAT 100
[2022-02-26] MEDS: HYDROcodone/acetaminophen (*CRX) 5-325 MG TABLET 1 TAB PO (15:14)
--- NOTE | 2022-02-26 15:14 | ED.BACK ---
HPI - Back Pain/Injury General Chief Complaint: Back Pain/Injury Stated Complaint: Fall, Lower back Pain Time Seen by Provider: 02/26/22 15:05 Source: RN notes reviewed History of Present Illness HPI Narrative: Patient presents emergency department from home for back pain. Patient states last night she got tangled up in her feet and fell she states she landed straight back onto her lower back she states she has a history of chronic lower back pain and this is caused the pain to be worse pain is located lower back bilaterally does not radiate she denies striking her head or loss of consciousness she denies any other trauma or injury she denies any chest pain shortness of breath abdominal pain nausea vomiting numbness or tingling of the extremities bowel or bladder incontinence or any other symptoms. States she took Tylenol for the pain at a.m. this morning Related Data Home Medications Medication Instructions Recorded Confirmed omeprazole magnesium 20 mg 20 mg PO QAM 01/16/20 01/19/21 tablet,delayed release (Prilosec OTC) tolterodine 4 mg capsule,extended 4 mg PO QAM 06/22/20 01/19/21 release 24 hr (Detrol LA) albuterol sulfate 90 mcg/actuation 2 puff inhalation Q4H PRN Dyspnea 06/30/20 01/19/21 aerosol inhaler citalopram 40 mg tablet (Celexa) 40 mg PO QAM 08/16/20 01/19/21 losartan 50 mg tablet tablet 02/26/22 Allergies Allergy/AdvReac Type Severity Reaction Status Date / Time No Known Allergies Allergy Verified 02/26/22 12:31 Review of Systems Review of Systems: Gen.: Denies fevers or chills Eyes: Denies eye pain or visual change ENT: Denies facial pain Respiratory: Denies shortness of breath or cough CV: Denies chest pain GI: Denies abdominal pain nausea, emesis or diarrhea denies incontinence Musculoskeletal: See HPI Neuro: Denies numbness, tingling, weakness or focal weakness Skin: Denies rash Except as documented, all other systems reviewed and negative PMF Past Medical History Medical History Acid reflux Anxiety Asthma COPD (chronic obstructive pulmonary disease) Dental caries Depression GERD (gastroesophageal reflux disease) History of tonsillitis IBS (irritable bowel syndrome) Surgical History Surgical History History of History of cholecystectomy Hx of tonsillectomy Family History Family History Father Hypertension Diabetes mellitus Mother Hypertension Grandparent Breast cancer Social History Social History Smoking packs per day: 0.5 Smoking cigarettes per day: 10.0 Years smoked: 22 Smoking pack-years: 11.00 Smoking status: Current every day smoker Tobacco type: e-cigarettes/vaping Alcohol intake: never 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 Substance use: never Additional living arrangements comments: AND CHILDREN 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 Clear to auscultation bilaterally. Abdomen: Soft and nontender, no rebound or guarding MUSCULOSKELETAl: Moves all extremities, no clubbing cyanosis or edema Back: No midline lumbar tenderness to palpation or step-off, tender to palpation over bilateral paravertebral muscles L3-5 , pain increased with forward flexion NEURO: Awake and alert. Following commands, speech normal, no focal deficits, muscle strength 5 out of 5 bilateral lower extremities SKIN:: Warm, dry. Normal Color no rash or lesions Course Course Emergency Course: Discusse
== END 2022-02-26 15:52 | disposition home or self-care (01) ==
PROVIDERS: Emergency Provider Emergency Medicine; PCP Emergency Medicine
DX: S39.92XA Unspecified injury of lower back, initial encounter (principal); J44.9 Chronic obstructive pulmonary disease, unspecified; K21.9 Gastro-esophageal reflux disease without esophagitis; K58.9 Irritable bowel syndrome, unspecified; F41.9 Anxiety disorder, unspecified; F32.A Depression, unspecified; F17.210 Nicotine dependence, cigarettes, uncomplicated; M51.37 Other intervertebral disc degeneration, lumbosacral region; W01.0XXA Fall on same level from slipping, tripping and stumbling without subsequent striking against object, initial encounter
CPT/HCPCS: 72110; 99283; A9270

== ENCOUNTER 2022-05-16 11:02 | Emergency (ER) | payer MEDICAID, SELFPAY ==
[2022-05-16 11:09] VITALS: BP 144/85; PULSE 77; RESP 18; TEMP 36.8; O2SAT 100
--- NOTE | 2022-05-16 11:36 | ED.GENADULT ---
HPI - General Adult General Chief complaint: Upper Respiratory Infection Stated complaint: Headache,Cough,Sore Throat,Shortness of Breath History of Present Illness HPI narrative: 46 y/o female. PMHx KRISTA, MDD, GERD, Asthma, COPD, Former everyday cigarette smoker (Quit 08/2021), IBS. Presents to [facility] today with acute complaints of MARTINEZ, throat 'irritation', semi-productive cough, and intermittent dyspnea for the past 1 week. No fevers. Positive intermittent MARTINEZ, no focal weakness. This is NOT the worst MARTINEZ she has experienced historically according to client. No falls, closed head injury. Intermittent cough, dyspnea. No wheezing. No hemoptysis. No chest pain, palpitations, edema. No N/V or GI upset. She denies known ill contacts. She is without additional acute c/o upon PE. Related Data Home Medications Medication Instructions Recorded Confirmed omeprazole magnesium 20 mg 20 mg PO QAM 01/16/20 05/16/22 tablet,delayed release (Prilosec OTC) tolterodine 4 mg capsule,extended 4 mg PO QAM 06/22/20 05/16/22 release 24 hr (Detrol LA) citalopram 40 mg tablet (Celexa) 40 mg PO QAM 08/16/20 05/16/22 losartan 50 mg tablet 1 tablet PO DAILY 02/26/22 05/16/22 clonazepam 0.5 mg tablet 0.5 mg PO PRN PRN Anxiety 05/16/22 05/16/22 Allergies Allergy/AdvReac Type Severity Reaction Status Date / Time No Known Allergies Allergy Verified 05/16/22 11:06 Review of Systems Review of Systems: CONSTITUTIONAL: Denies fever, chills, sweats. EYES: Denies visual changes, redness, discharge. ENT: Positive rhinorrhea, congestion, sore throat. No otalgia. CARDIOVASCULAR: Denies chest pain, palpitations, edema. RESPIRATORY: Positive dyspnea, cough. No wheezing. GASTROINTESTINAL: Denies abdominal pain, nausea, vomiting, diarrhea. GENITOURINARY: Denies dysuria, hematuria, abnormal discharge SKIN: Denies rash or itching. MUSCULOSKELETAL: Denies acute back pain, joint pain, or myalgia. NEUROLOGIC: Denies numbness, or focal weakness. PSYCHIATRIC: Denies anxiety or depression. [facility] Past Medical History Medical History Acid reflux Anxiety Asthma COPD (chronic obstructive pulmonary disease) Dental caries Depression GERD (gastroesophageal reflux disease) History of tonsillitis IBS (irritable bowel syndrome) Surgical History Surgical History History of History of cholecystectomy Hx of tonsillectomy Family History Family History Father Hypertension Diabetes mellitus Mother Hypertension Grandparent Breast cancer Social History Social History Smoking packs per day: 0.5 Smoking cigarettes per day: 10.0 Years smoked: 22 Smoking pack-years: 11.00 Smoking status: Current every day smoker Tobacco type: e-cigarettes/vaping Alcohol intake: never 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 Substance use: never Additional living arrangements comments: AND CHILDREN 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 HEAD: normocephalic, atraumatic. EYES: PERRL. Sclera clear/white. EARS: External ears normal, auditory canals clear and without drainage, TMs normal. NOSE: External nose normal. Positive Rhinorrhea, thick nasal discharge. No obstruction. THROAT: Mucous membranes moist, posterior pharynx mildly erythematous. No exudates. No gross soft tissue swelling, palate soft. NECK: Neck supple, non-tender without lymphadenopathy, masses or thyromegaly. CARDIOVASCULAR: Regular rate and rhythm without murmurs, gallops, or rubs. No edema. RESPIRATORY:
== END 2022-05-16 11:52 | disposition home or self-care (01) ==
PROVIDERS: Emergency Provider Nurse Practitioner Adult Health; PCP Emergency Medicine
DX: J06.9 Acute upper respiratory infection, unspecified (principal); J44.1 Chronic obstructive pulmonary disease with (acute) exacerbation; Z20.822 Contact with and (suspected) exposure to COVID-19; F17.290 Nicotine dependence, other tobacco product, uncomplicated; K21.9 Gastro-esophageal reflux disease without esophagitis; F41.9 Anxiety disorder, unspecified; F32.A Depression, unspecified
CPT/HCPCS: 87426; 99213; C9803; G0463

== ENCOUNTER 2022-09-06 09:57 | Emergency (ER) | payer BC, SELFPAY ==
[2022-09-06 10:30] VITALS: BP 134/102; PULSE 96; RESP 18; TEMP 36.6; O2SAT 100
--- NOTE | 2022-09-06 10:34 | ECG_ITS ---
Measurements Intervals [place] Rate: 71 P: 61 ME: 128 QRS: 56 QRSD: 84 T: 39 QT: 380 QTc: 414 Interpretive Statements SINUS RHYTHM WITH SHORT ME INTERVAL POSSIBLE LEFT ATRIAL ENLARGEMENT BORDERLINE ECG COMPARED TO ECG 10/23/2021 11:50:56 NO SIGNIFICANT CHANGES Electronically Signed On 09-06-2022 13:04:34 SAND BOBBER by Fermin Forman D.O.
[2022-09-06 10:59] LABS: Basophils Absolute Auto 0.1 K/mm3 (0.0-0.1); Eosinophils Absolute Auto 0.2 K/mm3 (0-0.3); Eosinophils Percent Auto 2.9 % (0-4.4); Hematocrit 38.3 % (37.0-47.0); Hemoglobin 11.6 g/dL (12.0-15.0); Immature Granulocyte Absolute 0.05 K/mm3 (0.00-0.031); Immature Granulocyte Percent A 0.7 % (0-0.5); Lymphocytes Absolute Auto 1.41 K/mm3 (0.9-3.2); Lymphocytes Percent Auto 20.1 % (18.3-44.2); Mean Corpuscular HGB Conc 30.3 g/dl (32-36); Mean Corpuscular Hemoglobin 28.9 pg (26-34); Mean Corpuscular Volume 95.5 fl (80-100); Mean Platelet Volume 9.4 fl (7.4-10.4); Monocytes Absolute Auto 0.7 K/mm3 (0.1-0.6); Monocytes Percent Auto 9.3 % (2.6-8.5); Neutrophils Absolute Auto 4.6 K/mm3 (1.3-6.7); Platelet Count Result 398 k/mm3 (150-375); Red Blood Count 4.01 M/mm3 (4.2-5.4); Red Cell Distribution Width 14.6 % (11.5-14.5)
[2022-09-06 11:12] LABS: Alanine Aminotransferase 17 U/L (6-35); Albumin Level 4.1 g/dL (3.5-5.1); Alkaline Phosphatase 61 U/L (38-126); Anion Gap 3 mmol/L (8-16); Aspartate Amino Transferase 24 U/L (14-36); Bilirubin,Total 0.6 mg/dL (0.2-1.3); Blood Urea Nitrogen 14 mg/dL (7-17); Calcium 8.7 mg/dL (8.4-10.2); Carbon Dioxide 28 mmol/L (22-30); Chloride 104 mmol/L (98-107); Estimated CRCL calculation 91 ml/min; Estimated Glomerular Filt Rate > 60; Glucose 90 mg/dL (65-110); Lipase 57 U/L (23-300); Potassium 4.2 mmol/L (3.4-5.0); Sodium 135 mmol/L (137-145)
[2022-09-06 11:15] LABS: Add Urine Microscopic? YES; Appearance Urine Clear (Clear); Bilirubin Urine Negative (Negative); Blood Urine Trace-Intact (Negative); Color Urine Yellow (Yellow); Glucose Urine UA Negative (Negative); Ketones Urine Negative (Negative); Leukocyte Esterase Ur Negative LEU/UL (Negative); Nitrate Urine Negative (Negative); Protein Urine Negative (Negative); Specific Grav Ur 1.015 (1.001-1.035); Urobilinogen Urine 0.2 mg/dL (<2.0); pH Urine 7.5 (5.0-9.0)
[2022-09-06 11:22] LABS: Mucus Urine Rare /lpf; Squamous Epithelial Cell Urine Rare /hpf (Few); WBC Urine 0-3 /hpf
[2022-09-06 12:14] VITALS: BP 134/67; PULSE 71; RESP 17; TEMP 36.4; O2SAT 100
[2022-09-06 14:59] VITALS: BP 129/72; PULSE 78; RESP 18; TEMP 36.9; O2SAT 100
[2022-09-06 18:09] VITALS: BP 127/63; PULSE 71; RESP 20; TEMP 37; O2SAT 100
--- NOTE | 2022-09-06 19:10 | ED.NAVMDI ---
HPI - Nausea/Vomiting/Diarrhea General Chief complaint: Nausea/Vomiting/Diarrhea Stated complaint: GERD Time Seen by Provider: 09/06/22 19:10 Source: patient Mode of arrival: ambulatory Limitations: no limitations History of Present Illness HPI Narrative: Patient is a 47 yo female with a history of anxiety, GERD, presenting for evalution of epigastric pain that has been ongoing for the past two weeks. Patient states that she initially was having some right hip pain for which she was taking Naproxen for. Patient taking upward of 2000 mg Naproxen daily. Patient states hip pain is improved, but now with dark bloody emesis, intermittent over past two weeks. Patient reports four episodes of emesis. She denies fever, chills, chest pain, dyspnea. Patient continues to take Naproxen. No dark or tarry stools. No weight loss. She is reporting sour taste in her mouth and regurgitation type sensation. Related Data Home Medications Medication Instructions Recorded Confirmed bupropion HCl 150 mg 24 hr tablet, 150 mg PO 09/06/22 extended release citalopram 40 mg tablet 40 mg 09/06/22 famotidine 40 mg tablet (Pepcid) 40 mg PO DAILY 09/06/22 09/06/22 Allergies Allergy/AdvReac Type Severity Reaction Status Date / Time No Known Allergies Allergy Verified 09/06/22 19:37 Review of Systems Review of Systems: CONSTITUTIONAL: Denies fever CARDIOVASCULAR: Denies chest pain RESPIRATORY: Denies cough or dyspnea. GASTROINTESTINAL: Reports epigastric pain, intermittent nausea and vomiting SKIN: Denies rash MUSCULOSKELETAL: Denies back pain NEUROLOGIC: Denies headache PMFSH Past Medical History Medical History Acid reflux Anxiety Asthma COPD (chronic obstructive pulmonary disease) Dental caries Depression GERD (gastroesophageal reflux disease) History of tonsillitis IBS (irritable bowel syndrome) Surgical History Surgical History History of History of cholecystectomy Hx of tonsillectomy Family History Family History Father Hypertension Diabetes mellitus Mother Hypertension Grandparent Breast cancer Social History Social History Smoking packs per day: 0.5 Smoking cigarettes per day: 10.0 Years smoked: 22 Smoking pack-years: 11.00 Smoking status: Current every day smoker Tobacco type: e-cigarettes/vaping Alcohol intake: never 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 Substance use: never Additional living arrangements comments: AND CHILDREN 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 EYES: PERRLA and EOMI. ENT: Nares clear, no rhinorrhea or epistaxis. Mucous membranes moist. NECK: Supple. CHEST: No respiratory distress, breathing even and non labored HEART: Regular rate, sinus rhythm ABDOMEN:Non distended, non tenderness in all 4 quadrants, no epigastric tenderness EXTREMITIES: Normal range of motion. No edema. SKIN: Warm, dry, no rash. NEURO:No focal deficits. Alert and oriented x3 Course Vital Signs Vital signs: Vital Signs Temperature 36.6 C 09/06/22 10:30 Pulse Rate 96 09/06/22 10:30 Respiratory Rate 18 09/06/22 10:30 Blood Pressure 134/102 H 09/06/22 10:30 Pulse Oximetry 100 09/06/22 10:30 Oxygen Delivery Room Air 09/06/22 10:30 Temperature 37.0 C 09/06/22 18:09 Pulse Rate 72 09/06/22 20:49 Respiratory Rate 16 09/06/22 20:49 Blood Pressure 132/80 09/06/22 20:49 Pulse Oximetry 98 09/06/22 20:49 Oxygen Delivery Room Air 09/06/22 19:33 MDM - Nausea/Vomiting/Diarrhea MDM Narrative Medical decision making narrat
[2022-09-06 19:33] VITALS: BP 122/64; PULSE 78; RESP 16; O2SAT 100
[2022-09-06] MEDS: BELLADONNA ALK/PHENOB ELIX 10 ML, MAG HYDROX/ALUMINUM HYD/SIMETH 30 ML, LIDOCAINE HCL 2... PO (19:43)
[2022-09-06] MEDS: PANTOPRAZOLE 40 MG TABLET PO (19:54)
[2022-09-06] MEDS: SUCRALFATE SUSP 100 MG/ML 10 ML UDC 1000 MG PO (19:54)
[2022-09-06] MEDS: ONDANSETRON HCL ODT 4 MG TABLET PO (20:37)
[2022-09-06 20:49] VITALS: BP 132/80; PULSE 72; RESP 16; O2SAT 98
== END 2022-09-06 20:53 | disposition home or self-care (01) ==
PROVIDERS: Physician Assistant; Emergency Provider Emergency Medicine; PCP Emergency Medicine
DX: K21.9 Gastro-esophageal reflux disease without esophagitis (principal); J44.9 Chronic obstructive pulmonary disease, unspecified; K58.9 Irritable bowel syndrome, unspecified; F41.9 Anxiety disorder, unspecified; F17.290 Nicotine dependence, other tobacco product, uncomplicated; R94.31 Abnormal electrocardiogram [ECG] [EKG]
CPT/HCPCS: 36415; 80053; 81001; 81025; 83690; 85025; 93005; 99283; A9270

== ENCOUNTER 2022-09-11 14:26 | Emergency (ER) | payer BC, SELFPAY ==
[2022-09-11 14:35] VITALS: BP 107/86; PULSE 79; RESP 20; TEMP 36.6; O2SAT 100
--- NOTE | 2022-09-11 14:58 | ED.BACK ---
HPI - Back Pain/Injury General Chief Complaint: Back Pain/Injury Stated Complaint: Rt Hip and Lower Back Pain Time Seen by Provider: 09/11/22 15:00 Source: patient Mode of arrival: ambulatory Limitations: no limitations History of Present Illness HPI Narrative: 47-year-old female who for complaint of right lower back pain for over 2 weeks. She denies known injury. Rates pain 10/10. Worse with standing and walking, or lying on the right side. Pain radiates to the right front hip. Pain is not located in the hip or the flank area, it is just above the hip bone. She has been taking naproxen and Tylenol. She endorses taking 2000 mg of naproxen, resulting in a visit to the ER for hematemesis. She was instructed to avoid NSAIDs and continue PPI and Pepcid. She states she continued to have pain after leaving the ER, and has continued to take naproxen but less often. She denies numbness, tingling, weakness of the lower extremity. Related Data Home Medications Medication Instructions Recorded Confirmed bupropion HCl 150 mg 24 hr tablet, 150 mg PO DAILY 09/06/22 09/11/22 extended release citalopram 40 mg tablet 40 mg PO DAILY 09/06/22 09/11/22 famotidine 40 mg tablet (Pepcid) 40 mg PO DAILY 09/06/22 09/11/22 Allergies Allergy/AdvReac Type Severity Reaction Status Date / Time No Known Allergies Allergy Verified 09/11/22 14:44 Review of Systems Review of Systems: CONSTITUTIONAL: Denies body aches, fever, chills EYES: Denies visual changes ENT: Denies rhinorrhea, congestion CARDIOVASCULAR: Denies chest pain, palpitations, or edema. RESPIRATORY: Denies cough or dyspnea. GASTROINTESTINAL: Denies abdominal pain, nausea, vomiting, or diarrhea. SKIN: Denies rash, itching, or wounds. MUSCULOSKELETAL: per HPI NEUROLOGIC: Denies headache, numbness, tingling, or weakness. All systems reviewed & are unremarkable except as noted in HPI and below PMFSH Past Medical History Medical History Acid reflux Anxiety Asthma COPD (chronic obstructive pulmonary disease) Dental caries Depression GERD (gastroesophageal reflux disease) History of tonsillitis IBS (irritable bowel syndrome) Surgical History Surgical History History of History of cholecystectomy Hx of tonsillectomy Family History Family History Father Hypertension Diabetes mellitus Mother Hypertension Grandparent Breast cancer Social History Social History Smoking packs per day: 0.5 Smoking cigarettes per day: 10.0 Years smoked: 22 Smoking pack-years: 11.00 Smoking status: Current every day smoker Tobacco type: e-cigarettes/vaping Alcohol intake: never 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 Substance use: never Additional living arrangements comments: AND CHILDREN Additional occupation/education comments: [employer] Gender identity (if verbalized by the patient): Female Spiritual care concerns: No Comments At time of signature, I have reviewed and agree with nursing past medical, surgical, social and family history unless otherwise noted. Please see nursing chart for further information. There is no relevant family history pertinent to the presenting complaint Exam Narrative: GENERAL: Well-appearing, well-nourished, and in no acute distress. EYES: PERRLA, conjunctivae clear CHEST: Speaks in full sentences. No respiratory distress. HEART: Regular rate and rhythm. Normal and equal peripheral pulses. EXTREMITIES: Right lower back closer with palpation over the iliac crest. No CVA tenderness. RLE has normal strength and sensation, normal range of motion. No ecchymosis. No open wounds or obvious deformity; alignment normal, pulse palpable and equal bilaterally, skin warm,
[2022-09-11] MEDS: KETOROLAC (*BKC) 60 MG/2 ML VIAL IM (15:27)
== END 2022-09-11 15:37 | disposition home or self-care (01) ==
PROVIDERS: Emergency Provider Nurse Practitioner Family; PCP Emergency Medicine
DX: M54.50 Low back pain, unspecified (principal); F17.290 Nicotine dependence, other tobacco product, uncomplicated; K21.9 Gastro-esophageal reflux disease without esophagitis; J44.9 Chronic obstructive pulmonary disease, unspecified; F41.9 Anxiety disorder, unspecified; F32.A Depression, unspecified
CPT/HCPCS: 81003; 96372; 99213; G0463; J1885

== ENCOUNTER 2022-10-23 10:15 | Emergency (ER) | payer BC, SELFPAY ==
[2022-10-23 10:25] VITALS: BP 139/68; PULSE 86; RESP 20; TEMP 36.2; O2SAT 100
--- NOTE | 2022-10-23 10:55 | ED.URI ---
HPI - URI/Sore Throat General Chief Complaint: Upper Respiratory Infection Stated Complaint: Headache,Shortness of Breath,Body Aches Time Seen by Provider: 10/23/22 10:30 Source: patient Mode of arrival: ambulatory Limitations: no limitations History of Present Illness HPI Narrative: Archana is a 47-year-old female patient presenting to the clinic today with complaints of headache, sore throat, mild shortness of breath, and body aches x1 day. She reports she does have a history of asthma/COPD and she is a current smoker. She states that the cough is nonproductive at this time. History of tonsillectomy in the past. States that she took her daughter to the ER yesterday and she was positive for strep. MD elicited complaint: cough, sore throat, rhinorrhea, nasal congestion and other (Shortness of breath, body aches) Related Data Home Medications Medication Instructions Recorded Confirmed bupropion HCl 150 mg 24 hr tablet, 150 mg PO DAILY 09/06/22 10/23/22 extended release citalopram 40 mg tablet 40 mg PO DAILY 09/06/22 10/23/22 omeprazole 20 mg capsule,delayed 20 mg PO DAILY 10/23/22 10/23/22 release oxybutynin chloride 10 mg 10 mg PO DAILY 10/23/22 10/23/22 tablet,extended release 24 hr Allergies Allergy/AdvReac Type Severity Reaction Status Date / Time No Known Allergies Allergy Verified 10/23/22 10:42 Review of Systems Review of Systems: Pertinent positives per HPI. Patient denies any fever, chills, rash, visual changes, dizziness, chest pain, palpitations, nausea, vomiting, diarrhea, constipation, abdominal pain, or any urinary issues. [facility] Past Medical History Medical History Acid reflux Anxiety Asthma COPD (chronic obstructive pulmonary disease) Dental caries Depression GERD (gastroesophageal reflux disease) History of tonsillitis IBS (irritable bowel syndrome) Labral tear of right hip joint Surgical History Surgical History History of History of cholecystectomy Hx of tonsillectomy Family History Family History Father Hypertension Diabetes mellitus Mother Hypertension Grandparent Breast cancer Social History Social History Smoking packs per day: 0.5 Smoking cigarettes per day: 10.0 Years smoked: 22 Smoking pack-years: 11.00 Smoking status: Current every day smoker Tobacco type: e-cigarettes/vaping Alcohol intake: never 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 Substance use: never Living arrangements: with family Additional living arrangements comments: AND CHILDREN Occupation/Education: occupation Additional occupation/education comments: [employer] Gender identity (if verbalized by the patient): Female Spiritual care concerns: No Comments At the time of my signature, I reviewed and agree with the nursing past medical, surgical, social, and family history. There is no relevant family history pertinent to the patient complaint. Exam Narrative: General: Well-developed, well nourished, in no apparent distress Head: Normocephalic, atraumatic Eyes: Pupils equally round and reactive to light bilaterally, EOM intact, sclera and conjunctive clear, no discharge, lids normal Ears: TMs intact and clear, ear canals clear, no drainage, grossly hearing normal. Nose: Nares patent, no discharge, no inflammation, no sinus tenderness. Mouth: Oral pharynx without lesions or masses, good dentition, MMM. Neck: Supple, trachea midline, no enlargement of anterior or posterior cervical nodes, no thyroid masses or goiter palpable. Cardio: Regular rate and rhythm, s1 and s2 normal, no murmur appreciated. Resp: Clear to auscultation bilaterally, no rhonchi, rales, wheezing or rubs Course Cours
== END 2022-10-23 11:01 | disposition home or self-care (01) ==
PROVIDERS: Emergency Provider Nurse Practitioner Family; PCP Emergency Medicine
DX: J06.9 Acute upper respiratory infection, unspecified (principal); J02.9 Acute pharyngitis, unspecified; R06.02 Shortness of breath; Z20.822 Contact with and (suspected) exposure to COVID-19; F17.290 Nicotine dependence, other tobacco product, uncomplicated; K21.9 Gastro-esophageal reflux disease without esophagitis; J44.9 Chronic obstructive pulmonary disease, unspecified; F41.9 Anxiety disorder, unspecified; F32.A Depression, unspecified
CPT/HCPCS: 87081; 87426; 87880; 99213; C9803; G0463

== ENCOUNTER 2023-03-22 14:33 | Emergency (ER) | payer BC, SELFPAY ==
[2023-03-22 14:41] VITALS: BP 144/82; PULSE 85; RESP 18; TEMP 36.6; O2SAT 100
[2023-03-22 14:42] VITALS: BP 144/82; PULSE 85; RESP 18; TEMP 36.6; O2SAT 100
--- NOTE | 2023-03-22 14:45 | ED.BACK ---
HPI - Back Pain/Injury General Chief Complaint: Back Pain/Injury Stated Complaint: Lower Back Pain Time Seen by Provider: 03/22/23 14:48 Source: patient and RN notes reviewed Mode of arrival: ambulatory Limitations: no limitations History of Present Illness HPI Narrative: 47-year-old female presents with concern for right low back pain that radiates to the right side. She reports pain started a week ago. She reports history of low back pain and similar area. She had an MRI 3 years ago that showed degenerative changes such as spondylosis. Reports she has flares of her back pain, this flare is not improving. She reports taking Tylenol without relief. She reports she cannot take NSAIDs because she had a GI bleed. She denies abdominal pain, fever, loss of bowel or bladder function, perianal anesthesia. She reports a feeling of her right leg being weaker when she walks MD elicited complaint: back pain Related Data Home Medications Medication Instructions Recorded Confirmed bupropion HCl 150 mg 24 hr tablet, 150 mg PO DAILY 09/06/22 03/22/23 extended release citalopram 40 mg tablet 40 mg PO DAILY 09/06/22 03/22/23 omeprazole 20 mg capsule,delayed 20 mg PO DAILY 10/23/22 03/22/23 release oxybutynin chloride 10 mg 10 mg PO DAILY 10/23/22 03/22/23 tablet,extended release 24 hr clonazepam 0.5 mg tablet 0.5 mg PO BID PRN Anxiety 03/22/23 03/22/23 prednisone 50 mg tablet 5 mg PO DAILY 03/22/23 03/22/23 Allergies Allergy/AdvReac Type Severity Reaction Status Date / Time naproxen AdvReac Gastrointestinal Verified 03/22/23 14:42 Upset Review of Systems Review of Systems: CONSTITUTIONAL: Denies malaise, chills, sweats, or fever. CARDIOVASCULAR: Denies chest pain, palpitations, or edema. RESPIRATORY: Denies cough or dyspnea. GASTROINTESTINAL: Denies abdominal pain, nausea, vomiting, diarrhea, loss of bowel function GENITOURINARY: Denies dysuria, hematuria, frequency, loss of bladder function. SKIN: Denies rash or itching. MUSCULOSKELETAL: Reports right low back pain NEUROLOGIC: Denies numbness or headache. All systems reviewed & are unremarkable except as noted in HPI and below PMFSH Past Medical History Medical History Acid reflux Anxiety Asthma COPD (chronic obstructive pulmonary disease) Dental caries Depression GERD (gastroesophageal reflux disease) History of tonsillitis IBS (irritable bowel syndrome) Labral tear of right hip joint Surgical History Surgical History History of History of cholecystectomy Hx of tonsillectomy Family History Family History Father Hypertension Diabetes mellitus Mother Hypertension Grandparent Breast cancer Social History Social History Smoking packs per day: 0.5 Smoking cigarettes per day: 10.0 Years smoked: 22 Smoking pack-years: 11.00 Smoking status: Current every day smoker Tobacco type: e-cigarettes/vaping Alcohol intake: never 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 Substance use: never Living arrangements: with family Additional living arrangements comments: AND CHILDREN Occupation/Education: occupation Additional occupation/education comments: [employer] Gender identity (if verbalized by the patient): Female Spiritual care concerns: No Comments At time of signature, agree with nursing past medical, surgical, social and family history. There is no relevant family history pertinent to the presenting complaint Exam Narrative: GENERAL: Well-appearing, well-nourished, and in no acute distress. HEAD: Normocephalic, atraumatic. EYES: PERRLA and EOMI. NECK: Supple. No lymphadenopathy. CHEST: Clear to auscultation. No respiratory distress. H
[2023-03-22] MEDS: methylPREDNISolone SOD SUCC 125 MG VIAL IM (15:04)
== END 2023-03-22 15:24 | disposition home or self-care (01) ==
PROVIDERS: Emergency Provider Nurse Practitioner; PCP Family Medicine
DX: M54.50 Low back pain, unspecified (principal); F17.290 Nicotine dependence, other tobacco product, uncomplicated; K21.9 Gastro-esophageal reflux disease without esophagitis; J44.9 Chronic obstructive pulmonary disease, unspecified; F32.9 Major depressive disorder, single episode, unspecified; F41.9 Anxiety disorder, unspecified
CPT/HCPCS: 96372; 99213; G0463; J2930

== ENCOUNTER 2023-05-30 10:31 | Emergency (ER) | payer BC, SELFPAY ==
[2023-05-30 10:39] VITALS: BP 151/81; PULSE 81; RESP 18; TEMP 36.4; O2SAT 100
--- NOTE | 2023-05-30 10:40 | ED.EAR ---
HPI - Ear Problem General Chief complaint: Ear Stated complaint: Rt Ear Irritation Source: patient and RN notes reviewed History of Present Illness HPI Narrative: 47 yo F presents to urgent care with complaints of right ear muffled hearing x 1 week. Pt also reports the feeling of being off balance. Denies any ear pain, drainage, falling, chest pain, SOB, fevers, or chills. Pt does report some congestion as well. Related Data Home Medications Medication Instructions Recorded Confirmed bupropion HCl 150 mg 24 hr tablet, 150 mg PO DAILY 09/06/22 05/30/23 extended release citalopram 40 mg tablet 40 mg PO DAILY 09/06/22 05/30/23 omeprazole 20 mg capsule,delayed 20 mg PO DAILY 10/23/22 05/30/23 release oxybutynin chloride 10 mg 10 mg PO DAILY 10/23/22 05/30/23 tablet,extended release 24 hr clonazepam 0.5 mg tablet 0.5 mg PO BID PRN Anxiety 03/22/23 05/30/23 gabapentin 100 mg capsule 200 mg PO BID 05/30/23 05/30/23 meloxicam 15 mg tablet 7.5 mg PO BID 05/30/23 05/30/23 prednisone 5 mg tablet 5 mg PO DAILY 05/30/23 05/30/23 Allergies Allergy/AdvReac Type Severity Reaction Status Date / Time naproxen AdvReac Gastrointestinal Verified 05/30/23 10:42 Upset Review of Systems Review of Systems: CONSTITUTIONAL: Denies fever, chills, or sweats. EYES: Denies visual changes, redness, or discharge. ENT: Denies otalgia and sore throat CARDIOVASCULAR: Denies chest pain, palpitations, or edema. RESPIRATORY: Denies cough or dyspnea. GASTROINTESTINAL: Denies abdominal pain, nausea, vomiting, or diarrhea. GENITOURINARY: Denies dysuria or hematuria. SKIN: Denies rash or itching. MUSCULOSKELETAL: Denies back pain, joint pain, or myalgia. NEUROLOGIC: Denies headache, numbness, or weakness. Pertinent positives per HPI. [facility] Past Medical History Medical History Acid reflux Anxiety Asthma COPD (chronic obstructive pulmonary disease) Dental caries Depression GERD (gastroesophageal reflux disease) History of tonsillitis IBS (irritable bowel syndrome) Labral tear of right hip joint Surgical History Surgical History History of History of cholecystectomy Hx of tonsillectomy Family History Family History Father Hypertension Diabetes mellitus Mother Hypertension Grandparent Breast cancer Social History Social History Smoking packs per day: 0.5 Smoking cigarettes per day: 10.0 Years smoked: 22 Smoking pack-years: 11.00 Smoking status: Current every day smoker Tobacco type: e-cigarettes/vaping Alcohol intake: never 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 Substance use: never Living arrangements: with family Additional living arrangements comments: AND CHILDREN Occupation/Education: occupation Additional occupation/education comments: [employer] Gender identity (if verbalized by the patient): Female Spiritual care concerns: No Comments At the time of my signature, I reviewed and agree with the nursing past medical, surgical, social, and family history. There is no relevant family history pertinent to the patient complaint. Exam Narrative: GENERAL: This is a well-nourished, well-developed patient, in no apparent distress. HEAD: normocephalic, atraumatic. EYES: Sclera clear/white. Vision is grossly intact. EARS: External ears normal, auditory canals clear and without drainage, Left TM normal without perforation. Right TM bulging with clear fluid noted posteriorly. No erythrema. NOSE: External nose normal with no obvious nasal discharge, nares without redness, no rhinorrhea. THROAT: Mucous membranes moist, posterior pharynx clear. NECK: Neck supple, non-tender without lymphadenopathy, masses or thyrome
== END 2023-05-30 10:50 | disposition home or self-care (01) ==
PROVIDERS: Emergency Provider Nurse Practitioner Family; PCP Family Medicine
DX: H65.01 Acute serous otitis media, right ear (principal); J44.9 Chronic obstructive pulmonary disease, unspecified; F17.219 Nicotine dependence, cigarettes, with unspecified nicotine-induced disorders; Z79.899 Other long term (current) drug therapy; Z79.1 Long term (current) use of non-steroidal anti-inflammatories (NSAID)
CPT/HCPCS: 99213; G0463

== ENCOUNTER 2023-11-05 15:14 | Emergency (ER) | payer SELFPAY ==
[2023-11-05 15:54] VITALS: BP 125/72; PULSE 73; RESP 16; TEMP 36.6; O2SAT 100
--- NOTE | 2023-11-05 16:22 | ED.GENADULT ---
HPI - General Adult General Chief complaint: Urogenital-Female Stated complaint: uti symptoms Source: patient, RN notes reviewed and old records reviewed Mode of arrival: ambulatory Limitations: no limitations History of Present Illness HPI narrative: [facility] female presents to [facility] complaints burning with urination, urinary frequency foul-smelling urine hematuria, bilateral flank pain that started 1 week ago. Related Data Home Medications Medication Instructions Recorded Confirmed bupropion HCl 150 mg 24 hr tablet, 150 mg PO DAILY 09/06/22 11/05/23 extended release citalopram 40 mg tablet 40 mg PO DAILY 09/06/22 11/05/23 omeprazole 20 mg capsule,delayed 20 mg PO DAILY 10/23/22 11/05/23 release clonazepam 0.5 mg tablet 0.5 mg PO BID PRN Anxiety 03/22/23 11/05/23 gabapentin 100 mg capsule 200 mg PO BID 05/30/23 11/05/23 meloxicam 15 mg tablet 7.5 mg PO BID 05/30/23 11/05/23 Allergies Allergy/AdvReac Type Severity Reaction Status Date / Time naproxen AdvReac Gastrointestinal Verified 11/05/23 15:57 Upset Review of Systems Constitutional: Constitutional: Reports no additional constitutional complaints, Denies body ache(s), Denies chills, Denies fatigue, Denies fever(s) and Denies headache(s) Eyes: Eyes: Reports no additional eye complaints and Denies blurry vision ENT: Reports system reviewed and no additional complaints, except as documented, Denies vertigo, Denies dizziness, Denies ear discharge, Denies otalgia, Denies facial pain, Denies headache(s), Denies nasal congestion, Denies nasal discharge, Denies sinus pain, Denies sinus pressure and Denies sore throat Cardiovascular: Cardiovascular: Reports no additional cardiovascular complaints, Denies chest pain, Denies chest pain at rest, Denies rapid heart rate and Denies dyspnea Respiratory: Respiratory: Reports no additional respiratory complaints, Denies chest congestion, Denies cough, Denies pain on inspiration, Denies pain with cough and Denies dyspnea Gastrointestinal: Gastrointestinal: Denies abdominal pain, Denies diarrhea, Denies nausea and Denies vomiting Genitourinary: Genitourinary: Reports as per HPI, Reports hematuria, Reports nocturia, Reports dysuria and Reports flank pain Integumentary/Breasts: Skin/Breast: Denies rash Neurologic: Reports system reviewed and no additional complaints, except as documented, Denies vertigo, Denies dizziness and Denies headache(s) Endocrine: Endocrine: Denies fatigue PMFSH Past Medical History Medical History Acid reflux Anxiety Asthma COPD (chronic obstructive pulmonary disease) Dental caries Depression GERD (gastroesophageal reflux disease) History of tonsillitis IBS (irritable bowel syndrome) Labral tear of right hip joint Surgical History Surgical History History of History of cholecystectomy Hx of tonsillectomy Family History Family History Father Hypertension Diabetes mellitus Mother Hypertension Grandparent Breast cancer Social History Social History Smoking packs per day: 0.5 Smoking cigarettes per day: 10.0 Years smoked: 22 Smoking pack-years: 11.00 Smoking status: Current every day smoker Tobacco type: e-cigarettes/vaping Alcohol intake: never 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 Substance use: never Living arrangements: with family Additional living arrangements comments: AND CHILDREN Occupation/Education: occupation Additional occupation/education comments: [employer] Gender identity (if verbalized by the patient): Female Spiritual care concerns: No Comments At the time of my signature, I reviewed and agree with the nursing past medical, surgical, social, and
== END 2023-11-05 16:46 | disposition home or self-care (01) ==
PROVIDERS: Emergency Provider Registered Nurse; PCP Family Medicine
DX: N30.01 Acute cystitis with hematuria (principal); B96.20 Unspecified Escherichia coli [E. coli] as the cause of diseases classified elsewhere; F17.290 Nicotine dependence, other tobacco product, uncomplicated; K21.9 Gastro-esophageal reflux disease without esophagitis; J44.9 Chronic obstructive pulmonary disease, unspecified; F41.9 Anxiety disorder, unspecified; F32.A Depression, unspecified
CPT/HCPCS: 81003; 87077; 87086; 87186; 99213; G0463

== ENCOUNTER 2023-11-18 19:31 | Emergency (ER) | payer SELFPAY ==
[2023-11-18 19:51] VITALS: BP 145/77; PULSE 72; RESP 14; TEMP 36.6; O2SAT 100
[2023-11-18 20:43] LABS: Basophils Absolute Auto 0.1 K/mm3 (0.0-0.1); Basophils Percent Auto 0.7 % (0.2-1.2); Eosinophils Absolute Auto 0.2 K/mm3 (0-0.3); Hematocrit 41.3 % (37.0-47.0); Hemoglobin 12.4 g/dL (12.0-15.0); Immature Granulocyte Percent A 1.2 % (0-0.5); Lymphocytes Absolute Auto 2.24 K/mm3 (0.9-3.2); Lymphocytes Percent Auto 26.3 % (18.3-44.2); Mean Corpuscular Hemoglobin 27.8 pg (26-34); Mean Corpuscular Volume 92.6 fl (80-100); Mean Platelet Volume 9.8 fl (7.4-10.4); Monocytes Absolute Auto 0.9 K/mm3 (0.1-0.6); Monocytes Percent Auto 10.7 % (2.6-8.5); Neutrophils Absolute Auto 5.1 K/mm3 (1.3-6.7); Neutrophils Percent Auto 59.1 % (45.5-73.1); Platelet Count Result 395 k/mm3 (150-375); Red Blood Count 4.46 M/mm3 (4.2-5.4); Red Cell Distribution Width 16.1 % (11.5-14.5); White Blood Count 8.5 K/mm3 (4.5-10.0)
[2023-11-18 20:50] LABS: Appearance Urine Clear (Clear); Bacteria Urine None Seen /hpf; Bilirubin Urine Negative (Negative); Blood Urine 1+ (Negative); Color Urine Yellow (Yellow); Glucose Urine UA Negative (Negative); Ketones Urine Trace mg/dL (Negative); Leukocyte Esterase Ur 1+ LEU/UL (Negative); Nitrate Urine Negative (Negative); Non Pathogenic Casts 0-2; Protein Urine Negative (Negative); Specific Grav Ur 1.019 (1.001-1.035); Squamous Epithelial Cell Urine None Seen /hpf (Few)
[2023-11-18 20:53] LABS: Add Urine Microscopic? YES
[2023-11-18 20:56] LABS: Alanine Aminotransferase 16 U/L (6-35); Albumin Level 4.6 g/dL (3.5-5.1); Alkaline Phosphatase 78 U/L (38-126); Anion Gap 9 mmol/L (8-16); Aspartate Amino Transferase 21 U/L (14-36); Bilirubin,Total 0.2 mg/dL (0.2-1.3); Blood Urea Nitrogen 15 mg/dL (7-17); Calcium 9.8 mg/dL (8.4-10.2); Carbon Dioxide 26 mmol/L (22-30); Chloride 103 mmol/L (98-107); Estimated CRCL calculation 82 ml/min; Estimated Glomerular Filt Rate > 60; Glucose 63 mg/dL (65-110); Lipase 142 U/L (23-300); Potassium 3.6 mmol/L (3.4-5.0); Sodium 138 mmol/L (137-145)
== END 2023-11-19 01:37 | disposition left against medical advice (07) ==
PROVIDERS: Emergency Provider Emergency Medicine; PCP Family Medicine
DX: R10.9 Unspecified abdominal pain (principal)
CPT/HCPCS: 36415; 80053; 83690; 85025; 87086; 99199

== ENCOUNTER 2023-12-02 18:43 | Emergency (ER) | payer SELFPAY ==
[2023-12-02 18:48] VITALS: BP 149/93; PULSE 80; RESP 16; TEMP 36.6; O2SAT 100
--- NOTE | 2023-12-02 23:50 | ED.GENADULT ---
HPI - General Adult General Chief complaint: Wound/Laceration <LANDY Ozuna Last Filed: 12/03/23 02:14> Stated complaint: infected tattoo <LANDY Ozuna Last Filed: 12/03/23 02:14> Time Seen by Provider: 12/02/23 23:07 <LANDY Ozuna Last Filed: 12/03/23 02:14> Source: patient <LANDY Ozuna Last Filed: 12/03/23 02:14> Mode of arrival: ambulatory <LANDY Ozuna Last Filed: 12/03/23 02:14> Limitations: no limitations <LANDY Ozuna Filed: 12/03/23 02:14> History of Present Illness HPI narrative: This is a 48-year-old female who presents to the ED with chief complaint of potentially infected tattoo on the right forearm. Patient states that for the last couple of days she has noticed increasing inflammation, redness and purulent draining from the tattoo. She states initially was read she thought it was just healing however now is starting to drain pus. She feels generally fatigued. She notes that she started to have a little bit of a sore throat and hoarse voice today as well. Denies cough, congestion, shortness of breath, chest pain, abdominal pain, nausea, vomiting. <LANDY Ozuna Last Filed: 12/03/23 02:14> Related Data Home medications: Home Medications Medication Instructions Recorded Confirmed bupropion HCl 150 mg 24 hr tablet, 150 mg PO DAILY 09/06/22 11/05/23 extended release citalopram 40 mg tablet 40 mg PO DAILY 09/06/22 11/05/23 omeprazole 20 mg capsule,delayed 20 mg PO DAILY 10/23/22 11/05/23 release clonazepam 0.5 mg tablet 0.5 mg PO BID PRN Anxiety 03/22/23 11/05/23 gabapentin 100 mg capsule 200 mg PO BID 05/30/23 11/05/23 meloxicam 15 mg tablet 7.5 mg PO BID 05/30/23 11/05/23 <LANDY Ozuna Filed: 12/03/23 02:14> Allergies/adverse reactions: Allergies Allergy/AdvReac Type Severity Reaction Status Date / Time naproxen AdvReac Gastrointestinal Verified 12/02/23 18:50 Upset <LANDY Ozuna Last Filed: 12/03/23 02:14> Review of Systems Review of Systems: All systems as dictated in HPI <LANDY Ozuna Filed: 12/03/23 02:14> [facility] Past Medical History Medical History: Medical History Acid reflux Anxiety Asthma COPD (chronic obstructive pulmonary disease) Dental caries Depression GERD (gastroesophageal reflux disease) History of tonsillitis IBS (irritable bowel syndrome) Labral tear of right hip joint <LANDY Ozuna Filed: 12/03/23 02:14> Surgical History Surgical History: Surgical History History of History of cholecystectomy Hx of tonsillectomy <LANDY Ozuna Filed: 12/03/23 02:14> Family History Family History: Family History Father Hypertension Diabetes mellitus Mother Hypertension Grandparent Breast cancer <LANDY Ozuna Last Filed: 12/03/23 02:14> Social History Social History: Social History Smoking packs per day: 0.5 Smoking cigarettes per day: 10.0 Years smoked: 22 Smoking pack-years: 11.00 Smoking status: Current every day smoker Tobacco type: e-cigarettes/vaping Alcohol intake: never 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 Substance use: never Living arrangements: with family Additional living arrangements comments: AND CHILDREN Occupation/Education: occupation Additional occupation/education comments: [employer] Gender identity (if verbalized by the patient): Female Spiritual care concerns: No <LANDY Ozuna Filed: 12/03/23 02:14> Exam Narrative: GENERAL: Well-appearing, well-nourished, and in no acute distress. HEAD: Normocephal
[2023-12-03 00:42] LABS: Basophils Absolute Auto 0.1 K/mm3 (0.0-0.1); Basophils Percent Auto 0.7 % (0.2-1.2); Eosinophils Absolute Auto 0.3 K/mm3 (0-0.3); Eosinophils Percent Auto 3.2 % (0-4.4); Hematocrit 33.1 % (37.0-47.0); Hemoglobin 10.2 g/dL (12.0-15.0); Immature Granulocyte Absolute 0.07 K/mm3 (0.00-0.031); Immature Granulocyte Percent A 0.7 % (0-0.5); Lymphocytes Absolute Auto 2.41 K/mm3 (0.9-3.2); Lymphocytes Percent Auto 25.7 % (18.3-44.2); Mean Corpuscular HGB Conc 30.8 g/dl (32-36); Mean Corpuscular Hemoglobin 28.7 pg (26-34); Mean Platelet Volume 9.4 fl (7.4-10.4); Monocytes Absolute Auto 0.8 K/mm3 (0.1-0.6); Monocytes Percent Auto 8.3 % (2.6-8.5); Neutrophils Absolute Auto 5.7 K/mm3 (1.3-6.7); Neutrophils Percent Auto 61.4 % (45.5-73.1); Platelet Count Result 353 k/mm3 (150-375); Red Blood Count 3.56 M/mm3 (4.2-5.4); Red Cell Distribution Width 15.8 % (11.5-14.5); White Blood Count 9.4 K/mm3 (4.5-10.0)
[2023-12-03 00:49] LABS: Lactic Acid Reflex 0.7 mmol/L (0.7-2.0)
[2023-12-03 00:52] LABS: Alanine Aminotransferase 13 U/L (6-35); Albumin Level 3.7 g/dL (3.5-5.1); Alkaline Phosphatase 67 U/L (38-126); Anion Gap 1 mmol/L (4-12); Aspartate Amino Transferase 18 U/L (14-36); Bilirubin,Total 0.2 mg/dL (0.2-1.3); Blood Urea Nitrogen 18 mg/dL (7-17); Carbon Dioxide 29 mmol/L (22-30); Chloride 107 mmol/L (98-107); Estimated CRCL calculation 107 ml/min; Estimated Glomerular Filt Rate > 60; Glucose 88 mg/dL (65-110); Potassium 3.4 mmol/L (3.4-5.0); Sodium 137 mmol/L (137-145)
[2023-12-03] MEDS: CLINDAMYCIN HCL 150 MG CAP 300 MG PO (01:14)
[2023-12-03 01:24] LABS: CRP 0.6 mg/dL (<1.0)
[2023-12-03 01:25] VITALS: BP 126/62; PULSE 67; RESP 13; O2SAT 100
== END 2023-12-03 01:37 | disposition home or self-care (01) ==
PROVIDERS: Emergency Provider Physician Assistant; PCP Family Medicine
DX: L03.113 Cellulitis of right upper limb (principal); J44.9 Chronic obstructive pulmonary disease, unspecified; K21.9 Gastro-esophageal reflux disease without esophagitis; K58.9 Irritable bowel syndrome, unspecified; F32.A Depression, unspecified; F41.9 Anxiety disorder, unspecified; Z90.49 Acquired absence of other specified parts of digestive tract; F17.210 Nicotine dependence, cigarettes, uncomplicated
CPT/HCPCS: 36415; 80053; 83605; 85025; 86140; 99283; A9270

== ENCOUNTER 2023-12-13 12:59 | Emergency (ER) | payer SELFPAY ==
--- NOTE | ~2023-12-13 | CT_ITS ---
EXAMINATION: CT abdomen pelvis w con DATE: 12/13/2023 14:50 INDICATION: Left lower quadrant abdominal pain for 2 weeks. No bowel movement for one week. TECHNIQUE: Computed tomography (CT) of the abdomen and pelvis was performed with 100 CC Omnipaque 350 intravenous contrast. Automated exposure control and iterative reconstruction technique were employe d. Exam dose: 973.36 mGy-cm total exam DLP. COMPARISON: 04/08/2018 CT abdomen pelvis FINDINGS: The lung bases are clear. Normal heart size. No pericardial or pleural effusion. Status post cholecystectomy. The liver, spleen, pancreas, bile ducts, pancreatic duct, adrenal glands , and kidneys are unremarkable. The uterus, adnexal areas and urinary bladder are unremarkable. Normal caliber of the abdominal aorta. No intraperitoneal or retroperitoneal or pelvic mass lesion or adenopathy or ascites. Normal appendix. Minimal colonic diverticulosis; no CT evidence of diverticulitis. No bowel obstructi on, bowel wall thickening, pneumatosis or intraperitoneal free air. Severe degenerative disc disease at L5-S1. IMPRESSION: Minimal colonic diverticulosis; no evidence of diverticulitis Normal appendix Status post cholecystectomy Reviewed, dictated and finalized at [facility] Reviewed, dictated and finalized at [facility].
[2023-12-13 13:01] VITALS: BP 102/82; PULSE 87; RESP 20; TEMP 36.8; O2SAT 100
[2023-12-13 14:00] VITALS: BP 126/76; PULSE 71; RESP 14; O2SAT 99
[2023-12-13 14:11] LABS: Basophils Absolute Auto 0.1 K/mm3 (0.0-0.1); Basophils Percent Auto 0.5 % (0.2-1.2); Eosinophils Absolute Auto 0.5 K/mm3 (0-0.3); Eosinophils Percent Auto 4.5 % (0-4.4); Hematocrit 35.1 % (37.0-47.0); Hemoglobin 10.7 g/dL (12.0-15.0); Immature Granulocyte Absolute 0.15 K/mm3 (0.00-0.031); Immature Granulocyte Percent A 1.5 % (0-0.5); Lymphocytes Absolute Auto 2.15 K/mm3 (0.9-3.2); Lymphocytes Percent Auto 20.9 % (18.3-44.2); Mean Corpuscular HGB Conc 30.5 g/dl (32-36); Mean Corpuscular Hemoglobin 28.2 pg (26-34); Mean Corpuscular Volume 92.6 fl (80-100); Mean Platelet Volume 8.9 fl (7.4-10.4); Monocytes Absolute Auto 0.9 K/mm3 (0.1-0.6); Monocytes Percent Auto 8.7 % (2.6-8.5); Neutrophils Absolute Auto 6.6 K/mm3 (1.3-6.7); Neutrophils Percent Auto 63.9 % (45.5-73.1); Platelet Count Result 356 k/mm3 (150-375); Red Blood Count 3.79 M/mm3 (4.2-5.4); Red Cell Distribution Width 16.2 % (11.5-14.5); White Blood Count 10.3 K/mm3 (4.5-10.0)
[2023-12-13 14:13] LABS: Appearance Urine Clear (Clear); Bilirubin Urine Negative (Negative); Blood Urine Negative (Negative); Color Urine Yellow (Yellow); Glucose Urine UA Negative (Negative); Ketones Urine Negative (Negative); Leukocyte Esterase Ur Negative LEU/UL (Negative); Nitrate Urine Negative (Negative); Protein Urine Negative (Negative); Specific Grav Ur 1.007 (1.001-1.035); Urobilinogen Urine 0.2 mg/dL (<2.0); pH Urine 6.5 (5.0-9.0)
[2023-12-13 14:17] LABS: Add Urine Microscopic? NO
--- NOTE | 2023-12-13 14:18 | ED.GENADULT ---
HPI - General Adult General Chief complaint: Abdominal Pain Stated complaint: L side abdominal pain Time Seen by Provider: 12/13/23 13:22 History of Present Illness HPI narrative: 48-year-old female presents for evaluation with diffuse abdominal pain and decreased bowel movements x1 week. Patient states history of IBS and recurrent constipation. She has been taking Colace at home without relief. Related Data Home Medications Medication Instructions Recorded Confirmed bupropion HCl 150 mg 24 hr tablet, 150 mg PO DAILY 09/06/22 12/30/23 extended release citalopram 40 mg tablet 40 mg PO DAILY 09/06/22 12/30/23 omeprazole 20 mg capsule,delayed 20 mg PO DAILY 10/23/22 12/30/23 release clonazepam 0.5 mg tablet 0.5 mg PO BID PRN Anxiety 03/22/23 12/30/23 gabapentin 100 mg capsule 300 mg PO TID 05/30/23 12/30/23 diclofenac sodium 75 mg 75 mg PO BID 12/30/23 12/30/23 tablet,delayed release docusate sodium 100 mg capsule 100 mg PO BID 12/30/23 12/30/23 famotidine 40 mg tablet 40 mg PO HS 12/30/23 01/01/24 Allergies Allergy/AdvReac Type Severity Reaction Status Date / Time naproxen AdvReac Gastrointestinal Verified 12/30/23 09:08 Upset Review of Systems Review of Systems: CONSTITUTIONAL: Denies fever, chills, or sweats. EYES: Denies visual changes, redness, or discharge. ENT: Denies rhinorrhea, congestion, sore throat, or otalgia. CARDIOVASCULAR: Denies chest pain, palpitations, or edema. RESPIRATORY: Denies cough or dyspnea. GASTROINTESTINAL: Denies abdominal pain, nausea, vomiting, or diarrhea. GENITOURINARY: Denies dysuria or hematuria. SKIN: Denies rash or itching. MUSCULOSKELETAL: Denies back pain, joint pain, or myalgia. NEUROLOGIC: Denies headache, numbness, or weakness. PSYCHIATRIC: Denies anxiety or depression. [facility] Past Medical History Medical History Anxiety Asthma Chronic back pain Chronic obstructive pulmonary disease Degenerative disc disease, cervical C4-C7 Degenerative disc disease, lumbar L4-S1 Depression Gastroesophageal reflux disease Irritable bowel syndrome Spondylosis, lumbosacral Tobacco abuse Surgical History Surgical History History of section History of cholecystectomy History of tonsillectomy Family History Family History Father Hypertension Diabetes mellitus Mother Hypertension Grandparent Breast cancer Social History Social History Social History: Surrogate medical decision maker: Flakito Phelan, son. Code status: Full code. Smoking packs per day: 0.5 Smoking cigarettes per day: 10.0 Years smoked: 22 Smoking pack-years: 11.00 Smoking status: Former smoker Tobacco type: e-cigarettes/vaping Alcohol intake: never Substance use: never Other substance usage details: denies IVDU Do You Feel Safe in your Home?: Yes Lack of Transportation: No Lack of Food: Never True Current Housing: I Have Housing Concerned About Future Housing: No Difficulty Paying Gas/Electric Bills: No Difficulty Paying for Meds: No Currently Unemployed: No Education: Decline to Answer Difficulty w/ Childcare or Family Care: No Spiritual care concerns: No Exam Narrative: GENERAL: Well-appearing, well-nourished, and in no acute distress. HEAD: Normocephalic, atraumatic. EYES: PERRLA and EOMI. ENT: Nares clear, no rhinorrhea or epistaxis. Mucous membranes moist. NECK: Supple. CHEST: Clear to auscultation. No respiratory distress. HEART: Regular rate and rhythm. No murmur heard. Normal peripheral pulses. ABDOMEN: Soft, nontender, nondistended, normal active bowel sounds. EXTREMITIES: Normal range of motion. No edema. SKIN: Warm, dry, no rash. NEURO: No focal deficits. Alert and oriented x3.
[2023-12-13 14:24] LABS: Alanine Aminotransferase 19 U/L (6-35); Albumin Level 4.3 g/dL (3.5-5.1); Alkaline Phosphatase 73 U/L (38-126); Anion Gap 4 mmol/L (4-12); Aspartate Amino Transferase 21 U/L (14-36); Bilirubin,Total 0.4 mg/dL (0.2-1.3); Blood Urea Nitrogen 17 mg/dL (7-17); Calcium 9.5 mg/dL (8.4-10.2); Carbon Dioxide 28 mmol/L (22-30); Chloride 105 mmol/L (98-107); Estimated CRCL calculation 93 ml/min; Estimated Glomerular Filt Rate > 60; Glucose 82 mg/dL (65-110); Lipase 86 U/L (23-300); Potassium 4.1 mmol/L (3.4-5.0); Sodium 137 mmol/L (137-145)
[2023-12-13 15:04] VITALS: PULSE 76; RESP 12; O2SAT 96
[2023-12-13 15:31] VITALS: BP 138/64; PULSE 67; RESP 15; O2SAT 96
[2023-12-13 16:28] VITALS: BP 126/63; PULSE 61; RESP 16; O2SAT 98
== END 2023-12-13 16:59 | disposition home or self-care (01) ==
PROVIDERS: Emergency Provider Emergency Medicine; PCP Family Medicine
DX: R10.9 Unspecified abdominal pain (principal); J44.9 Chronic obstructive pulmonary disease, unspecified; K58.9 Irritable bowel syndrome, unspecified; K21.9 Gastro-esophageal reflux disease without esophagitis; F41.9 Anxiety disorder, unspecified; F32.A Depression, unspecified; F17.290 Nicotine dependence, other tobacco product, uncomplicated; Z90.49 Acquired absence of other specified parts of digestive tract
CPT/HCPCS: 36415; 74177; 80053; 81003; 81025; 83690; 85025; 99284; Q9967

== ENCOUNTER 2023-12-30 08:58 | Observation (INO) | payer SELFPAY ==
--- NOTE | ~2023-12-30 | CT_ITS ---
EXAMINATION: CT cervical spine wo con DATE: 12/30/2023 11:34 INDICATION: Right arm paresthesias. TECHNIQUE: Computed tomography (CT) of the cervical spine was performed without intravenous contrast. Automated exposure control and iterative reconstruction technique were employed. The dose-length pro duct was 419.79 mGy-cm. COMPARISON: None FINDINGS: There is 9 degrees dextrocurvature of cervical spine. There is mild kyphosis of cervical sp ine. Vertebral body heights are normal. There is severely decreased disc height from C3-C4 through C6 -C7. The following disc levels are specifically discussed: C2-C3: There is no uncovertebral joint osteoarthritis. There is mild right and severe left facet join t osteoarthritis. There is mild left neural foraminal stenosis. There is no central canal stenosis. C3-C4: There is severe bilateral uncovertebral joint osteoarthritis. There is no facet joint osteoart hritis. There is mild bilateral neural foraminal stenosis. There is mild central canal stenosis. C4-C5: There is severe bilateral uncovertebral joint osteoarthritis. There is mild bilateral facet claudia int osteoarthritis. There is mild right and moderate left neural foraminal stenosis. There is mild ce ntral canal stenosis. C5-C6: There is severe bilateral uncovertebral joint osteoarthritis. There is mild bilateral facet claudia int osteoarthritis. There is mild bilateral neural foraminal stenosis. There is mild central canal st enosis. C6-C7: There is severe bilateral uncovertebral joint osteoarthritis. There is mild bilateral facet claudia int osteoarthritis. There is mild bilateral neural foraminal stenosis. There is mild central canal st enosis. C7-T1: There is no uncovertebral joint osteoarthritis. There is mild left facet joint osteoarthritis. There is no neural foraminal stenosis. There is no central canal stenosis. IMPRESSION: 1. Severe cervical spondylosis. Reviewed, dictated and finalized at [facility].
--- NOTE | ~2023-12-30 | XR_ITS ---
EXAMINATION: XR lumbar spine 2-3V DATE: 12/30/2023 11:40 INDICATION: Low back pain. TECHNIQUE: 3 views of lumbar spine were obtained. COMPARISON: Lumbar spine radiographs 02/26/2022, CT abdomen and pelvis 12/13/2023 FINDINGS: There is 7 degrees levocurvature of lumbar spine. There is mild chronic anterior wedging of T11 and T12 vertebral bodies. There is moderately decreased disc height at L3-L4 and severely decrea sed disc height at L5-S1. There is multilevel facet joint osteoarthritis, severe bilaterally at L5-S1 and on the right at L4-L5. IMPRESSION: 1. Severe lower lumbar spondylosis. Reviewed, dictated and finalized at [facility].
[2023-12-30 09:07] VITALS: BP 145/71; PULSE 88; RESP 20; O2SAT 99
--- NOTE | 2023-12-30 11:05 | ED.EXTPRO ---
HPI - Extremity Problem General Chief complaint: Extremity Problem,Nontraumatic Stated complaint: LE Swelling Time Seen by Provider: 12/30/23 10:48 Source: patient Mode of arrival: ambulatory Limitations: no limitations History of Present Illness HPI Narrative: Patient presents with sharp low back pain. Subjective bilateral lower extremity swelling and pain. No radiation of back pain into buttock(s) or leg(s). No fever or IVDU. She states Saturday she gained 6 lbs in 1 day. Also having tingling (but not pain) in right neck and shoulder. No chest pain or shortness of breath. History of degenerative disc disease at multiple levels, C4-C7 and L4-S1 diagnosed on MRI; pending repeat MRI. No lower extremity edema. For a pain regimen, she has been taking two 500mg tablets of Tylenol every 4 hours. Last dose 7am. Related Data Home Medications Medication Instructions Recorded Confirmed bupropion HCl 150 mg 24 hr tablet, 150 mg PO DAILY 09/06/22 12/30/23 extended release citalopram 40 mg tablet 40 mg PO DAILY 09/06/22 12/30/23 omeprazole 20 mg capsule,delayed 20 mg PO DAILY 10/23/22 12/30/23 release clonazepam 0.5 mg tablet 0.5 mg PO BID PRN Anxiety 03/22/23 12/30/23 gabapentin 100 mg capsule 300 mg PO TID 05/30/23 12/30/23 meloxicam 15 mg tablet 7.5 mg PO BID 05/30/23 12/30/23 atorvastatin 10 mg tablet 10 mg PO HS 12/30/23 12/30/23 diclofenac sodium 75 mg 75 mg PO BID 12/30/23 12/30/23 tablet,delayed release docusate sodium 100 mg capsule 100 mg PO BID 12/30/23 12/30/23 famotidine 40 mg tablet 40 mg PO HS 12/30/23 Allergies Allergy/AdvReac Type Severity Reaction Status Date / Time naproxen AdvReac Gastrointestinal Verified 12/30/23 09:08 Upset PMFSH Past Medical History Medical History Anxiety Asthma Chronic back pain Chronic obstructive pulmonary disease Degenerative disc disease, cervical C4-C7 Degenerative disc disease, lumbar L4-S1 Depression Gastroesophageal reflux disease Irritable bowel syndrome Spondylosis, lumbosacral Tobacco abuse Surgical History Surgical History History of section History of cholecystectomy History of tonsillectomy Family History Family History Father Hypertension Diabetes mellitus Mother Hypertension Grandparent Breast cancer Social History Social History Social History: Surrogate medical decision maker: Flakito Phelan, son. Code status: Full code. Smoking packs per day: 0.5 Smoking cigarettes per day: 10.0 Years smoked: 22 Smoking pack-years: 11.00 Smoking status: Former smoker Tobacco type: e-cigarettes/vaping Alcohol intake: never Substance use: never Other substance usage details: denies IVDU Do You Feel Safe in your Home?: Yes Lack of Transportation: No Lack of Food: Never True Current Housing: I Have Housing Concerned About Future Housing: No Difficulty Paying Gas/Electric Bills: No Difficulty Paying for Meds: No Currently Unemployed: No Education: Decline to Answer Difficulty w/ Childcare or Family Care: No Spiritual care concerns: No Exam Narrative: GENERAL: Well-appearing, well-nourished, and in no acute distress. HEAD: Normocephalic, atraumatic. EYES: Non injected, non icteric ENT: Nares clear, no rhinorrhea or epistaxis. NECK: Supple. CHEST: Speaking in full sentences. No respiratory distress. HEART: Regular rate and rhythm. . ABDOMEN: Soft, nondistended. Back: No TTP of midline spinous processes; no step offs. No muscle spasm. Possible R sided CVA tenderness. EXTREMITIES: Normal range of motion. No bilateral pitting edema. SKIN: Warm, dry, no rash. NEURO: No focal deficits. Alert and oriented x3. PSYCH: Normal mood and affect. Course Laquita
[2023-12-30] MEDS: KETOROLAC 30 MG/ML VIAL (*BKC) 15 MG IM (11:42)
[2023-12-30 11:54] VITALS: BP 121/63; PULSE 81; RESP 17; TEMP 36.4; O2SAT 99
[2023-12-30 11:55] LABS: Basophils Absolute Auto 0.1 K/mm3 (0.0-0.1); Basophils Percent Auto 0.7 % (0.2-1.2); Eosinophils Absolute Auto 0.5 K/mm3 (0-0.3); Eosinophils Percent Auto 5.8 % (0-4.4); Hematocrit 32.9 % (37.0-47.0); Hemoglobin 9.8 g/dL (12.0-15.0); Immature Granulocyte Absolute 0.04 K/mm3 (0.00-0.031); Immature Granulocyte Percent A 0.5 % (0-0.5); Lymphocytes Absolute Auto 1.48 K/mm3 (0.9-3.2); Mean Corpuscular HGB Conc 29.8 g/dl (32-36); Mean Corpuscular Hemoglobin 28.6 pg (26-34); Mean Corpuscular Volume 95.9 fl (80-100); Mean Platelet Volume 9.3 fl (7.4-10.4); Monocytes Percent Auto 12.3 % (2.6-8.5); Neutrophils Absolute Auto 5.2 K/mm3 (1.3-6.7); Neutrophils Percent Auto 62.7 % (45.5-73.1); Platelet Count Result 301 k/mm3 (150-375); Red Blood Count 3.43 M/mm3 (4.2-5.4); Red Cell Distribution Width 15.4 % (11.5-14.5); White Blood Count 8.2 K/mm3 (4.5-10.0)
[2023-12-30 12:06] LABS: Appearance Urine Clear (Clear); Bilirubin Urine Negative (Negative); Blood Urine Negative (Negative); Color Urine Yellow (Yellow); Glucose Urine UA Negative (Negative); Ketones Urine Negative (Negative); Leukocyte Esterase Ur Negative LEU/UL (Negative); Nitrate Urine Negative (Negative); Protein Urine Negative (Negative); Specific Grav Ur 1.009 (1.001-1.035); Urobilinogen Urine 0.2 mg/dL (<2.0)
[2023-12-30 12:12] LABS: Add Urine Microscopic? NO
[2023-12-30 12:17] LABS: Acetaminophen < 10 ug/mL (10-30)
[2023-12-30 12:24] LABS: NT Pro B Type Natriuretic Pept 172 pg/mL (19.9-100)
[2023-12-30 12:27] LABS: Anion Gap 2 mmol/L (4-12); Blood Urea Nitrogen 10 mg/dL (7-17); Calcium 8.7 mg/dL (8.4-10.2); Carbon Dioxide 33 mmol/L (22-30); Chloride 101 mmol/L (98-107); Estimated CRCL calculation 93 ml/min; Estimated Glomerular Filt Rate > 60; Glucose 95 mg/dL (65-110); Potassium 3.8 mmol/L (3.4-5.0); Sodium 136 mmol/L (137-145)
[2023-12-30 12:53] LABS: Creatine Kinase 7557 U/L (30-135)
[2023-12-30] MEDS: SODIUM CHLORIDE 0.9% IV 1,000 ML 999 ML IV CONT ×2 (14:09)
[2023-12-30 14:38] VITALS: BP 113/79; PULSE 69; RESP 17; O2SAT 99
--- NOTE | 2023-12-30 14:42 | PM.IMHP ---
H&P: HPI History of Present Illness Date/Time: 12/30/23 15:15 Chief Complaint: Leg pain and swelling. Narrative: This is a 48-year-old female smoker with chronic obstructive pulmonary disease, chronic back pain related to spondylosis, anxiety, and depression who presented to the emergency department via private vehicle for evaluation of leg pain and swelling. The patient provides the following history. The last several days she has developed tight pain and swelling in her lower legs and mild swelling in her hands and fingers as well. Her muscles feel sore but she has no weakness. She weighed herself today and reports having gained 6 lb in the last couple of days. She was afebrile on arrival to the ED with stable vital signs. Labs were significant for WBC count of 8.2, hemoglobin 9.8, sodium 136, carbon dioxide 33, proBNP 172, total creatinine kinase 7557. Cervical spine CT showed severe cervical spondylosis. Lumbar x-ray showed severe lower lumbar spondylosis. With further questioning she denies recent trauma, injuries, and fall. She has not had changes in activity and denies strenuous workout sessions and prolonged immobilization. No heat exposure or seizures. She denies illicit substance use. No personal or family history of rhabdomyolysis, muscular dystrophy, or congenital myopathies. She also denies medication changes but has been on 2 antibiotics recently; she was on nitrofurantoin for a urinary tract infection in early October and clindamycin for cellulitis earlier this month. Of note she takes 10 mg atorvastatin daily for the last several months but she has not had any issues with muscle weakness or soreness. She was started on IV fluids in the ED and is being admitted in this setting for further treatment and evaluation. Review of Systems Review of Systems: 12 systems were reviewed. No fever, chills, or sweats. No recent cold or flu symptoms. No history of autoimmune disease. Her sister has rheumatoid arthritis and lupus. The patient's doctor is trying to refer her to a tassel making machine operator for workup as she has concerns for autoimmune disease including changes in the skin around her fingers and nails with deep fissuring, intermittent joint aches, and extreme fatigue. She has not had any joint swelling or redness. No rashes. Except as documented, all other systems were reviewed and are negative. [facility] Past Medical History Medical History Anxiety Asthma Chronic back pain Chronic obstructive pulmonary disease Depression Gastroesophageal reflux disease Irritable bowel syndrome Tobacco abuse Surgical History Surgical History History of section History of cholecystectomy History of tonsillectomy Family History Family History Father Hypertension Diabetes mellitus Mother Hypertension Grandparent Breast cancer Social History Social History (Updated 12/30/23 @ 22:26 by Cris Ceron PA-C) Social History: Surrogate medical decision maker: Flakito Phelan, son. Code status: Full code. Smoking packs per day: 0.5 Smoking cigarettes per day: 10.0 Years smoked: 22 Smoking pack-years: 11.00 Smoking status: Former smoker Tobacco type: e-cigarettes/vaping Alcohol intake: never Substance use: never Do You Feel Safe in your Home?: Yes Lack of Transportation: No Lack of Food: Never True Current Housing: I Have Housing Concerned About Future Housing: No Difficulty Paying Gas/Electric Bills: No Difficulty Paying for Meds: No Currently Unemployed: No Education: Decline to Answer Difficulty w/ Childcare or Family Care: No Spiritual care concerns: No Meds Home Medications and Allergies Home Medications Medication Instructions Recorded Confirmed Type bupropion HCl 150 mg 24 hr tablet, 150 mg PO DAILY
--- NOTE | 2023-12-30 14:50 | ADMGEN ---
This patient, Anat Phelan, was admitted to 3 [facility] [place] Surg Room 319-01. Patient/family oriented to hospital policies and general routines including ID bracelet, bed and alarms, visiting hours, pain management, procedures, bathroom and other care routines, personal items, smoking policy, room service/diet, and visiting hours. Information on how to activate the Rapid Response Team has been discussed. Patient/Family are encouraged to report perceived risks to care and to ask questions if they do not understand what they are told or what they should do.
[2023-12-30] MEDS: SODIUM CHLORIDE 0.9% IV 1,000 ML 150 ML IV CONT ×2 (15:00→20:49)
[2023-12-30] MEDS: ACETAMINOPHEN 325 MG TABLET 650 MG PO (15:28)
[2023-12-30 15:49] VITALS: BP 110/52; PULSE 66; RESP 18; TEMP 36.5; O2SAT 93
[2023-12-30 16:25] LABS: Ethanol < 10 mg/dL (<10)
[2023-12-30 16:30] LABS: INR 0.9; Prothrombin Time 12.9 Seconds (11.1-14.7)
[2023-12-30 16:31] LABS: Fibrinogen 494 mg/dl (215-510); Partial Thromboplastin Time 32.7 Seconds (22.3-36.8)
[2023-12-30 16:58] LABS: Alanine Aminotransferase 127 U/L (6-35); Alkaline Phosphatase 86 U/L (38-126); Aspartate Amino Transferase 243 U/L (14-36); Uric Acid 6.3 mg/dL (2.5-7.5)
[2023-12-30 17:08] LABS: Anion Gap 3 mmol/L (4-12); Blood Urea Nitrogen 10 mg/dL (7-17); Calcium 8.4 mg/dL (8.4-10.2); Carbon Dioxide 31 mmol/L (22-30); Chloride 103 mmol/L (98-107); Estimated CRCL calculation 107 ml/min; Estimated Glomerular Filt Rate > 60; Glucose 91 mg/dL (65-110); Potassium 3.7 mmol/L (3.4-5.0); Sodium 137 mmol/L (137-145)
[2023-12-30 17:10] LABS: Erythrocyte Sedimentation Rate 58 mm/hr (0-20)
[2023-12-30 17:13] LABS: Iron 17 ug/dL (37-170)
[2023-12-30] MEDS: MORPHINE SULFATE (*CRX) 2 MG/ML INJ IV PUSH (17:19)
[2023-12-30 17:23] LABS: CRP 11.4 mg/dL (<1.0); Percent Iron Saturation 6 % (20-50)
[2023-12-30 17:27] LABS: Creatine Kinase 6494 U/L (30-135)
[2023-12-30 17:46] LABS: Thyroid Stimulating Hormone Reflex 0.804 uIU/mL (0.465-4.68)
[2023-12-30 19:08] LABS: Folic Acid 10.7 ng/mL (2.76->20)
[2023-12-30 20:30] VITALS: BP 122/66; PULSE 75; RESP 16; TEMP 35.7; O2SAT 97
[2023-12-30] MEDS: HYDROcodone/acetaminophen (*CRX) 5-325 MG TABLET 1 TAB PO (20:53)
[2023-12-31] MEDS: MORPHINE SULFATE (*CRX) 2 MG/ML INJ IV PUSH ×2 (01:26→05:26)
--- NOTE | 2023-12-31 05:27 | PC.NURSE ---
Pt was reminded that her IV was not working because it was placed in the AC and she refuses to keep her arm straight. 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 I calmly stated that I was not raising my voice at her unlike her screaming at me and that I was simply explaining that her arm being bent is why her IV stops working. It flushes great so long as she keeps her arm straight. Pt continued to scream at me. I administered the pain med, which was 10 minutes early, and left the room.
[2023-12-31 05:37] LABS: Hematocrit 33.9 % (37.0-47.0); Hemoglobin 9.8 g/dL (12.0-15.0); Mean Corpuscular HGB Conc 28.9 g/dl (32-36); Mean Corpuscular Hemoglobin 28.6 pg (26-34); Mean Corpuscular Volume 98.8 fl (80-100); Mean Platelet Volume 9.7 fl (7.4-10.4); Platelet Count Result 307 k/mm3 (150-375); Red Blood Count 3.43 M/mm3 (4.2-5.4); Red Cell Distribution Width 15.3 % (11.5-14.5); White Blood Count 7.1 K/mm3 (4.5-10.0)
[2023-12-31 05:56] LABS: Alanine Aminotransferase 126 U/L (6-35); Albumin Level 3.5 g/dL (3.5-5.1); Alkaline Phosphatase 83 U/L (38-126); Anion Gap 3 mmol/L (4-12); Aspartate Amino Transferase 183 U/L (14-36); Bilirubin,Total 0.3 mg/dL (0.2-1.3); Blood Urea Nitrogen 8 mg/dL (7-17); Calcium 8.5 mg/dL (8.4-10.2); Carbon Dioxide 28 mmol/L (22-30); Chloride 105 mmol/L (98-107); Estimated CRCL calculation 113 ml/min; Estimated Glomerular Filt Rate > 60; Glucose 114 mg/dL (65-110); Potassium 3.9 mmol/L (3.4-5.0); Sodium 136 mmol/L (137-145)
[2023-12-31 06:15] VITALS: BP 148/88; PULSE 97; RESP 16; TEMP 36.3; O2SAT 96
[2023-12-31 06:24] LABS: Creatine Kinase 5288 U/L (30-135)
--- NOTE | 2023-12-31 06:35 | PC.NURSE ---
With the assistance of the QUALITY MANAGEMENT NURSE, I disconnected pt's IV, which was beeping and pt still never called about it, and explained that I put in for her to get a new ultrasound placed IV and was going to pause her IV fluids until she got a new IV. I asked if the pain med that was administered an hour ago was working. Pt stated that the pain was a 6 and it was in her center back, where she stated it always hurts.
[2023-12-31] MEDS: PANTOPRAZOLE 40 MG TABLET PO (08:13)
[2023-12-31] MEDS: GABAPENTIN 300 MG CAPSULE PO ×3 (08:13→17:25)
[2023-12-31] MEDS: buPROPion HCL XL (24 HR) 150 MG TABCR PO (08:13)
[2023-12-31] MEDS: DOCUSATE SODIUM 100 MG CAPSULE PO ×2 (08:13→17:25)
[2023-12-31] MEDS: CITALOPRAM HYDROBROMIDE 20 MG TABLET 40 MG PO (08:13)
[2023-12-31 08:15] VITALS: PULSE 74; O2SAT 93
[2023-12-31] MEDS: SODIUM CHLORIDE 0.9% IV 1,000 ML 150 ML IV CONT ×3 (08:16→22:33)
[2023-12-31] MEDS: ENOXAPARIN 40 MG/0.4 ML SYRINGE SUB-Q (08:16)
[2023-12-31] MEDS: CYCLOBENZAPRINE HCL 10 MG TABLET PO (08:16)
--- NOTE | 2023-12-31 09:27 | PM.IMPN ---
Progress Note: A&P Assessment and Plan (1) Rhabdomyolysis: Code(s): M62.82 - Rhabdomyolysis Status: Acute (2) Normocytic anemia: Code(s): D64.9 - Anemia, unspecified Status: Acute (3) Chronic back pain: Code(s): M54.9 - Dorsalgia, unspecified; G89.29 - Other chronic pain Status: Acute (4) Tobacco abuse: Code(s): Z72.0 - Tobacco use Status: Acute (5) Depression with anxiety: Code(s): F41.8 - Other specified anxiety disorders Status: Acute (6) Chronic obstructive pulmonary disease: Code(s): J44.9 - Chronic obstructive pulmonary disease, unspecified Status: Acute (7) Gastroesophageal reflux disease: Code(s): K21.9 - Gastro-esophageal reflux disease without esophagitis Status: Acute Plan Rhabdomyolysis Aggressive IV fluid resuscitation CPK daily Monitor electrolytes folic acid encourage oral hydration VASQUEZ Drug screen pending Transaminitis Hepatitis panel VASQUEZ likely medication induced down trending Chronic back pain resumed cyclobenzaprine, meloxicam, diclofenac CT Cervical spondylosis and lumbar spondylosis Pain control O/P follow-up Depression anxiety Resumed citalopram and bupropion Smoking smoking cessation education nicotine patch daily remove at night Code status: Full code per patient DVT prophylaxis: Lovenox Stress ulcer prophylaxis: Protonix 40 daily PT/OT notes: Ambulatory Disposition: Patient admitted for rhabdo we will continue with aggressive IV fluids patient is ambulatory on own will likely return home when medically stable. Time Spent With Patient Time with patient: 15 - 25 minutes Subjective Date/time seen: 12/31/23 09:27 Interval history: Admission: Medical Record his is a 48-year-old female smoker with chronic obstructive pulmonary disease, chronic back pain related to spondylosis, anxiety, and depression who presented to the emergency department via private vehicle for evaluation of leg pain and swelling. The patient provides the following history. The last several days she has developed tight pain and swelling in her lower legs and mild swelling in her hands and fingers as well. Her muscles feel sore but she has no weakness. She weighed herself today and reports having gained 6 lb in the last couple of days. She was afebrile on arrival to the ED with stable vital signs. Labs were significant for WBC count of 8.2, hemoglobin 9.8, sodium 136, carbon dioxide 33, proBNP 172, total creatinine kinase 7557. Cervical spine CT showed severe cervical spondylosis. Lumbar x-ray showed severe lower lumbar spondylosis. With further questioning she denies recent trauma, injuries, and fall. She has not had changes in activity and denies strenuous workout sessions and prolonged immobilization. No heat exposure or seizures. She denies illicit substance use. No personal or family history of rhabdomyolysis, muscular dystrophy, or congenital myopathies. She also denies medication changes but has been on 2 antibiotics recently; she was on nitrofurantoin for a urinary tract infection in early October and clindamycin for cellulitis earlier this month. Of note she takes 10 mg atorvastatin daily for the last several months but she has not had any issues with muscle weakness or soreness. She was started on IV fluids in the ED and is being admitted in this setting for further treatment and evaluation. 12/30: Patient lethargic today still with complaints of cramps, CPK elevated but trending down will continue with aggressive IV fluids. Still needing urine drug screen attempting to add on from admission urine. Patient denying any event, exercise, drugs leading up to arrival to the ED. Review of Systems Review of Systems: All systems reviewed & are unremarkable except as noted in HPI and below Exam Narrative: General: Well-developed, nontoxic-appearing female in the [place]
[2023-12-31] MEDS: FOLIC ACID 1 MG TABLET PO (10:23)
[2023-12-31] MEDS: HYDROcodone/acetaminophen (*CRX) 5-325 MG TABLET 1 TAB PO ×3 (10:25→23:00)
[2023-12-31 10:41] LABS: Hepatitis B Surface Antigen Negative (Negative)
[2023-12-31 10:47] LABS: HAV RESULT Negative (Negative); Hepatitis B Core IgM Result Negative (Negative)
[2023-12-31 10:58] LABS: Hepatitis C Virus Antibody Negative (Negative)
[2023-12-31 14:00] VITALS: BP 113/72; PULSE 75; RESP 18; TEMP 36.6; O2SAT 96
[2023-12-31 16:01] LABS: Amphetamine Screen Urine Negative (Negative); Barbiturate Screen Urine Negative (Negative); Benzodiazepines Screen Urine Negative (Negative); Cannabinoid Screen Urine Negative (Negative); Cocaine Screen Urine Negative (Negative); Methadone Screen Urine Negative (Negative); Opiate Screen Urine Negative (Negative); Phencyclidine Screen Urine Negative (Negative)
[2023-12-31 21:10] VITALS: BP 136/66; PULSE 75; RESP 18; TEMP 36.2; O2SAT 97
[2024-01-01] MEDS: HYDROcodone/acetaminophen (*CRX) 5-325 MG TABLET 1 TAB PO ×2 (05:04→10:56)
[2024-01-01] MEDS: SODIUM CHLORIDE 0.9% IV 1,000 ML 150 ML IV CONT (05:04)
[2024-01-01 05:43] LABS: Hematocrit 32.2 % (37.0-47.0); Hemoglobin 9.4 g/dL (12.0-15.0); Mean Corpuscular HGB Conc 29.2 g/dl (32-36); Mean Corpuscular Hemoglobin 28.7 pg (26-34); Mean Corpuscular Volume 98.5 fl (80-100); Mean Platelet Volume 9.6 fl (7.4-10.4); Platelet Count Result 307 k/mm3 (150-375); Red Blood Count 3.27 M/mm3 (4.2-5.4); Red Cell Distribution Width 15.3 % (11.5-14.5); White Blood Count 6.2 K/mm3 (4.5-10.0)
[2024-01-01 05:54] LABS: Alanine Aminotransferase 103 U/L (6-35); Albumin Level 3.2 g/dL (3.5-5.1); Alkaline Phosphatase 74 U/L (38-126); Anion Gap 2 mmol/L (4-12); Aspartate Amino Transferase 94 U/L (14-36); Bilirubin,Total 0.3 mg/dL (0.2-1.3); Blood Urea Nitrogen 6 mg/dL (7-17); Calcium 8.5 mg/dL (8.4-10.2); Carbon Dioxide 28 mmol/L (22-30); Chloride 108 mmol/L (98-107); Creatine Kinase 1465 U/L (30-135); Estimated CRCL calculation 134 ml/min; Estimated Glomerular Filt Rate > 60; Glucose 88 mg/dL (65-110); Potassium 4.1 mmol/L (3.4-5.0); Sodium 138 mmol/L (137-145)
[2024-01-01 06:00] VITALS: BP 124/63; PULSE 83; RESP 16; TEMP 36.6; O2SAT 92
[2024-01-01 07:17] VITALS: O2SAT 90
[2024-01-01] MEDS: GABAPENTIN 300 MG CAPSULE PO (08:47)
[2024-01-01] MEDS: DOCUSATE SODIUM 100 MG CAPSULE PO (08:47)
[2024-01-01] MEDS: CITALOPRAM HYDROBROMIDE 20 MG TABLET 40 MG PO (08:47)
[2024-01-01] MEDS: ENOXAPARIN 40 MG/0.4 ML SYRINGE SUB-Q (08:47)
[2024-01-01] MEDS: FOLIC ACID 1 MG TABLET PO (08:47)
[2024-01-01] MEDS: buPROPion HCL XL (24 HR) 150 MG TABCR PO (08:48)
[2024-01-01] MEDS: PANTOPRAZOLE 40 MG TABLET PO (08:48)
--- NOTE | 2024-01-01 12:02 | PM.DS ---
DS: Admitting Diagnosis Discharge Date 01/01/2024 Admitting Diagnosis Rhabdomyolysis/severe spondylosis DS: Discharge Diagnosis Discharge Diagnosis (1) Rhabdomyolysis: Code(s): M62.82 - Rhabdomyolysis Status: Acute (2) Normocytic anemia: Code(s): D64.9 - Anemia, unspecified Status: Acute (3) Chronic back pain: Code(s): M54.9 - Dorsalgia, unspecified; G89.29 - Other chronic pain Status: Acute (4) Tobacco abuse: Code(s): Z72.0 - Tobacco use Status: Acute (5) Depression with anxiety: Code(s): F41.8 - Other specified anxiety disorders Status: Acute (6) Chronic obstructive pulmonary disease: Code(s): J44.9 - Chronic obstructive pulmonary disease, unspecified Status: Acute (7) Gastroesophageal reflux disease: Code(s): K21.9 - Gastro-esophageal reflux disease without esophagitis Status: Acute Plan Rhabdomyolysis Aggressive IV fluid resuscitation CPK daily Monitor electrolytes folic acid encourage oral hydration VASQUEZ Drug screen pending Transaminitis Hepatitis panel VASQUEZ likely medication induced down trending Chronic back pain resumed cyclobenzaprine, meloxicam, diclofenac CT Cervical spondylosis and lumbar spondylosis Pain control O/P follow-up Depression anxiety Resumed citalopram and bupropion Smoking smoking cessation education nicotine patch daily remove at night Disposition: Discharged to home will need follow-up and referral to pain management and spinal surgeon. DS: Summary Hospital Course Hospital Course: Admission: Medical Record his is a 48-year-old female smoker with chronic obstructive pulmonary disease, chronic back pain related to spondylosis, anxiety, and depression who presented to the emergency department via private vehicle for evaluation of leg pain and swelling. The patient provides the following history. The last several days she has developed tight pain and swelling in her lower legs and mild swelling in her hands and fingers as well. Her muscles feel sore but she has no weakness. She weighed herself today and reports having gained 6 lb in the last couple of days. She was afebrile on arrival to the ED with stable vital signs. Labs were significant for WBC count of 8.2, hemoglobin 9.8, sodium 136, carbon dioxide 33, proBNP 172, total creatinine kinase 7557. Cervical spine CT showed severe cervical spondylosis. Lumbar x-ray showed severe lower lumbar spondylosis. With further questioning she denies recent trauma, injuries, and fall. She has not had changes in activity and denies strenuous workout sessions and prolonged immobilization. No heat exposure or seizures. She denies illicit substance use. No personal or family history of rhabdomyolysis, muscular dystrophy, or congenital myopathies. She also denies medication changes but has been on 2 antibiotics recently; she was on nitrofurantoin for a urinary tract infection in early October and clindamycin for cellulitis earlier this month. Of note she takes 10 mg atorvastatin daily for the last several months but she has not had any issues with muscle weakness or soreness. She was started on IV fluids in the ED and is being admitted in this setting for further treatment and evaluation. Patient lethargic today still with complaints of cramps, CPK elevated but trending down will continue with aggressive IV fluids.? Still needing urine drug screen attempting to add on from admission urine.? Patient denying any event, exercise, drugs leading up to arrival to the ED.?Drug screen was negative CT scan showing severe cervical and lumbar spondylosis patient will need further referral to spinal surgery and Pain Management outpatient. Discontinued patient's meloxicam. Patient's CPK improved patient was ambulatory with [id number] pain. VASQUEZ is still pending at discharge however previous ones were negative patient agreed to follow with marlin
== END 2024-01-01 12:20 | disposition home or self-care (01) ==
LOC: ANHED 11:45 → ANH3MEDSUR 14:40
PROVIDERS: Nurse Practitioner Family; Physician Assistant; Admitting Provider Internal Medicine; Emergency Provider Student in an Organized Health Care Education/Training Program; PCP Family Medicine; Visit Provider Internal Medicine
DX: M62.82 Rhabdomyolysis (principal); D64.9 Anemia, unspecified; M47.812 Spondylosis without myelopathy or radiculopathy, cervical region; M47.816 Spondylosis without myelopathy or radiculopathy, lumbar region; G89.29 Other chronic pain; M54.9 Dorsalgia, unspecified; J45.909 Unspecified asthma, uncomplicated; K21.9 Gastro-esophageal reflux disease without esophagitis; F41.8 Other specified anxiety disorders; Z72.0 Tobacco use; J44.9 Chronic obstructive pulmonary disease, unspecified
CPT/HCPCS: 36415; 72100; 72125; 80048; 80053; 80074; 80307; 81003; 82550; 82607; 82728; 82746; 83540; 83550; 83735; 83880; 84075; 84443; 84450; 84460; 84550; 85025; 85027; 85384; 85610; 85652; 85730; 86038; 86140; 96361; 96372; 96374; 96376; 99285; A9270; G0378; J1650; J1885; J2270; J7030

== ENCOUNTER 2024-01-22 09:11 | Emergency (ER) | payer SELFPAY ==
[2024-01-22] VITALS (39 sets, daily range): BP systolic 96–149; BP diastolic 65–114; PULSE 79–110; RESP 11–33; TEMP 36.6; O2SAT 94–100
--- NOTE | ~2024-01-22 | CT_ITS ---
EXAMINATION: CTA chest PE protocol DATE: 01/22/2024 14:44 INDICATION: Shortness of breath. Elevated d-dimer. TECHNIQUE: Computed tomography angiography (CTA) of the chest was performed with 100 mL Omnipaque-350 intravenous contrast timed to evaluate the pulmonary arteries. Coronal maximum intensity projection 3D-reconstructions were created by the technologist. Automated exposure control and iterative reconst ruction technique were employed. Exam dose: 480.62 mGy-cm total exam DLP. COMPARISON: 01/22/2024. FINDINGS: Portable AP chest There is diagnostic contrast enhancement of the pulmonary arteries and no evidence of pulmonary embol ism. No thoracic aortic aneurysm or dissection. Normal heart size. No pericardial or pleural effusion. There is tree-in-bud infiltrate in the posteromedial superior segment of left lower lobe. Small sliding hiatal hernia. Normal morphology of the adrenal glands. Status post cholecystectomy. Prominent degenerative disc disease of the lower cervical spine. No suspicious osteolytic or osteobla stic lesions. IMPRESSION: Focal tree-in-bud infiltrate, posteromedial superior segment, left lower lobe, likely in fectious No evidence of pulmonary embolus Reviewed, dictated and finalized at [facility]. Reviewed, dictated and finalized at [facility]. IMPRESSION: Focal tree-in-bud infiltrate, posteromedial superior segment, left lower lobe, likely infectious No evidence of pulmonary embolus
--- NOTE | ~2024-01-22 | CT_ITS ---
EXAMINATION: CT abdomen pelvis w con DATE: 01/22/2024 14:09 INDICATION: Shortness of breath. Elevated d-dimer. TECHNIQUE: Computed tomography (CT) of the abdomen and pelvis was performed with 100 CC Omnipaque 350 intravenous contrast. Automated exposure control and iterative reconstruction technique were employe d. Exam dose: 875.11 mGy-cm total exam DLP. COMPARISON: December 13, 2023 CT abdomen pelvis FINDINGS: New mild tree-in-bud infiltrate in the posterior or medial left lower lobe, likely due to i nfection. Normal heart size. No pericardial or pleural effusion. Status post cholecystectomy. The liver, bile ducts, pancreas, pancreatic duct and spleen are unremark able. Normal morphology of the adrenal glands. No renal mass lesion or urinary tract calculus or hydroureteronephrosis. The urinary bladder, uterus and adnexal areas are unremarkable. Normal caliber of the abdominal aorta. No intraperitoneal or retroperitoneal or pelvic mass lesion or adenopathy or ascites. Mild colonic diverticulosis; no CT evidence of diverticulitis. Normal appendix. There is small bowel intussusception in the left mid to lower abdomen there is diffuse small bowel wa ll thickening, including terminal ileum. There are air-fluid levels and mild dilatation of the 3.3 cm diameter of the jejunum. The small bowel dilatation and small bowel wall thickening and intussuscept ion or new findings since December 13, 2023. IMPRESSION: Diffuse small bowel wall thickening, mild jejunal dilatation with air-fluid levels and m id small bowel intussusception; these findings are new since 12/13/2023. No significant arterial sten osis is noted at the celiac, superior or inferior mesenteric arteries to suggest ischemic etiology. Consider inflammatory or infectious etiology, portal hypertension, angioedema, lymphoma. Mild tree-in-bud infiltrate, left lower lobe, suggesting infection Status post cholecystectomy Reviewed, dictated and finalized at [facility]. Reviewed, dictated and finalized at [facility]. IMPRESSION: Diffuse small bowel wall thickening, mild jejunal dilatation with air-fluid levels and mid small bowel intussusception; these findings are new si nce 12/13/2023. No significant arterial stenosis is noted at the celiac, superi or or inferior mesenteric arteries to suggest ischemic etiology. Consider infl ammatory or infectious etiology, portal hypertension, angioedema, lymphoma. Mild tree-in-bud infiltrate, left lower lobe, suggesting infection Status post cholecystectomy
--- NOTE | ~2024-01-22 | XR_ITS ---
XR chest 1V portable DATE: 01/22/2024 09:54 INDICATION: Dyspnea TECHNIQUE: Portable AP chest on 01/22/2024 at 0949 hours COMPARISON: None FINDINGS: Normal heart size. No hilar or mediastinal enlargement. No pulmonary infiltrate or consolid ation, pleural effusion or pulmonary vascular congestion or pneumothorax is detected. Surgical clips overlie the right upper quadrant, consistent with cholecystectomy. IMPRESSION: No active cardiopulmonary disease Reviewed, dictated and finalized at [facility].
--- NOTE | 2024-01-22 09:18 | ECG_ITS ---
SEE SCANNED COPY FOR CONFIRMED REPORT MTDD
[2024-01-22 09:37] LABS: Base Excess ABG 0.4 mEq/l (+/-2.0); Carboxyhemoglobin 1.3 % THb (0-2.0); Fractional Inspired Oxygen 21 %; HCO3 ABG 21.3 mEq/l (22.0-26.0); Methemoglobin ABG 0.3 %THb (0-1.5); Oxygen Content ABG 16.2 %vol (16.0-22.0); Oxygen Saturation ABG 97.6 % (95.0-100.0); Oxyhemoglobin 95.6 % THb (90.0-100.0); PCO2 ABG 24.2 mmHg (35.0-45.0); PO2 ABG 84.8 mmHg (80.0-100.0); PO2 FiO2 Ratio Arterial Blood 4.04 %; Reduced Hemoglobin 2.8 %THb (0-5.0)
[2024-01-22 09:38] LABS: Device ROOM AIR; Modified Allen's Test Pass; Site Drawn RIGHT RADIAL; pH ABG 7.562 (7.350-7.450)
[2024-01-22 10:22] LABS: Basophils Percent Auto 0.4 % (0.2-1.2); Eosinophils Absolute Auto 0.2 K/mm3 (0-0.3); Eosinophils Percent Auto 2.3 % (0-4.4); Hematocrit 38.6 % (37.0-47.0); Hemoglobin 11.7 g/dL (12.0-15.0); Immature Granulocyte Absolute 0.06 K/mm3 (0.00-0.031); Immature Granulocyte Percent A 0.6 % (0-0.5); Immature Platelet Fraction Pct 1.9 % (0.9-11.2); Lymphocytes Absolute Auto 0.98 K/mm3 (0.9-3.2); Lymphocytes Percent Auto 9.9 % (18.3-44.2); Mean Corpuscular HGB Conc 30.3 g/dl (32-36); Mean Corpuscular Hemoglobin 27.7 pg (26-34); Mean Corpuscular Volume 91.5 fl (80-100); Mean Platelet Volume 9.5 fl (7.4-10.4); Monocytes Absolute Auto 1.1 K/mm3 (0.1-0.6); Monocytes Percent Auto 10.8 % (2.6-8.5); Neutrophils Absolute Auto 7.5 K/mm3 (1.3-6.7); Platelet Count Result 530 k/mm3 (150-375); Red Blood Count 4.22 M/mm3 (4.2-5.4); Red Cell Distribution Width 15.4 % (11.5-14.5); White Blood Count 9.9 K/mm3 (4.5-10.0)
[2024-01-22 10:33] LABS: Alanine Aminotransferase 19 U/L (6-35); Albumin Level 4.2 g/dL (3.5-5.1); Alkaline Phosphatase 92 U/L (38-126); Anion Gap 9 mmol/L (4-12); Aspartate Amino Transferase 24 U/L (14-36); Bilirubin,Total 0.9 mg/dL (0.2-1.3); Blood Urea Nitrogen 28 mg/dL (7-17); Carbon Dioxide 27 mmol/L (22-30); Chloride 99 mmol/L (98-107); Estimated Glomerular Filt Rate > 60; Glucose 106 mg/dL (65-110); Potassium 4.8 mmol/L (3.4-5.0); Sodium 135 mmol/L (137-145)
--- NOTE | 2024-01-22 10:36 | ED.SOB ---
HPI - SOB/Dyspnea General Chief Complaint: Shortness of Breath/Dyspnea Stated Complaint: SOB Time Seen by Provider: 01/22/24 09:52 Source: patient Mode of arrival: ambulatory Limitations: no limitations History of Present Illness HPI Narrative: Patient presents with report of shortness of breath. She has a PMH of asthma but at baseline it is well controlled and she only has to use her PRN albuterol inhaler occasionally. She has not been coughing. She started feeling unwell on Saturday, having vomiting and diarrhea. Denies chest pain. She has been sweating but denies fever. She states she doesn't recall much of yesterday as she laid around. She lives with her boys and her daughter; no sick contacts. She was supposed to have an appointment with her PCP Dr Patterson today. Related Data Home Medications Medication Instructions Recorded Confirmed bupropion HCl 150 mg 24 hr tablet, 150 mg PO DAILY 09/06/22 12/30/23 extended release citalopram 40 mg tablet 40 mg PO DAILY 09/06/22 12/30/23 omeprazole 20 mg capsule,delayed 20 mg PO DAILY 10/23/22 12/30/23 release clonazepam 0.5 mg tablet 0.5 mg PO BID PRN Anxiety 03/22/23 12/30/23 gabapentin 100 mg capsule 300 mg PO TID 05/30/23 12/30/23 diclofenac sodium 75 mg 75 mg PO BID 12/30/23 12/30/23 tablet,delayed release docusate sodium 100 mg capsule 100 mg PO BID 12/30/23 12/30/23 famotidine 40 mg tablet 40 mg PO HS 12/30/23 01/01/24 Allergies Allergy/AdvReac Type Severity Reaction Status Date / Time naproxen AdvReac Gastrointestinal Verified 01/22/24 09:12 Upset [facility] Past Medical History Medical History Anxiety Asthma Chronic back pain Chronic obstructive pulmonary disease Degenerative disc disease, cervical C4-C7 Degenerative disc disease, lumbar L4-S1 Depression Gastroesophageal reflux disease History of rhabdomyolysis December 2023 Irritable bowel syndrome Spondylosis, lumbosacral Tobacco abuse Surgical History Surgical History History of section History of cholecystectomy History of tonsillectomy Family History Family History Father Hypertension Diabetes mellitus Mother Hypertension Grandparent Breast cancer Social History Social History (Updated 01/23/24 @ 05:19 by Usha Bourgeois MD) Social History: Surrogate medical decision maker: Flakito Phelan, lon. Code status: Full code. Smoking packs per day: 0.5 Smoking cigarettes per day: 10.0 Years smoked: 22 Smoking pack-years: 11.00 Smoking status: Former smoker Tobacco type: e-cigarettes/vaping Alcohol intake: never Substance use: never Other substance usage details: denies IVDU Do You Feel Safe in your Home?: Yes Lack of Transportation: No Lack of Food: Never True Current Housing: I Have Housing Concerned About Future Housing: No Difficulty Paying Gas/Electric Bills: No Difficulty Paying for Meds: No Currently Unemployed: No Education: Decline to Answer Difficulty w/ Childcare or Family Care: No Living arrangements: with family Additional living arrangements comments: sons and daughter Spiritual care concerns: No Exam Narrative: GENERAL: Well-appearing, well-nourished, and in no acute distress. HEAD: Normocephalic, atraumatic. EYES: Non injected, non icteric ENT: Nares clear, no rhinorrhea or epistaxis. NECK: Supple. CHEST: Speaking in full sentences. No respiratory distress. Lungs clear to auscultation bilaterally without wheezes , crackles, areas of appreciable consolidation. HEART: Regular rate and rhythm at the time of my exam though borderline tachycardic . ABDOMEN: Soft, nondistended. EXTREMITIES: Normal range of motion. No edema. SKIN: Warm, dry, no rash. NEURO: No focal deficits. Alert and oriented x3. PSYCH: Normal mood and affect
[2024-01-22 11:49] LABS: Influenza A QL RT-PCR Negative (Negative); Influenza B QL RT-PCR Negative (Negative); RSV RNA, RT-PCR Negative (Negative); SARS-CoV-2 RNA PCR Negative (Negative)
[2024-01-22 12:01] LABS: D Dimer 5.25 ug/mL (<0.48)
[2024-01-22 12:47] LABS: Magnesium 2.1 mg/dL (1.6-2.3)
[2024-01-22 14:12] LABS: Amphetamine Screen Urine Negative (Negative); Barbiturate Screen Urine Negative (Negative); Benzodiazepines Screen Urine Negative (Negative); Cannabinoid Screen Urine Negative (Negative); Cocaine Screen Urine Negative (Negative); Methadone Screen Urine Negative (Negative); Opiate Screen Urine Negative (Negative); Phencyclidine Screen Urine Negative (Negative)
== END 2024-01-22 16:24 | disposition home or self-care (01) ==
PROVIDERS: Emergency Provider Student in an Organized Health Care Education/Training Program; PCP Family Medicine
DX: J40 Bronchitis, not specified as acute or chronic (principal); D75.839 Thrombocytosis, unspecified; D64.9 Anemia, unspecified; R79.89 Other specified abnormal findings of blood chemistry; Z20.822 Contact with and (suspected) exposure to COVID-19; J44.9 Chronic obstructive pulmonary disease, unspecified; M50.320 Other cervical disc degeneration, mid-cervical region, unspecified level; M51.36 Other intervertebral disc degeneration, lumbar region; K58.9 Irritable bowel syndrome, unspecified; K21.9 Gastro-esophageal reflux disease without esophagitis; F32.A Depression, unspecified; F41.9 Anxiety disorder, unspecified; Z87.891 Personal history of nicotine dependence; Z90.49 Acquired absence of other specified parts of digestive tract; R00.0 Tachycardia, unspecified; R94.31 Abnormal electrocardiogram [ECG] [EKG]
CPT/HCPCS: 36415; 36600; 71045; 71275; 74177; 80053; 80307; 82375; 82805; 83050; 83735; 85025; 85055; 85380; 87637; 93005; 99284; Q9967

== ENCOUNTER 2024-02-22 16:39 | Inpatient (IN) | payer MEDICAID, SELFPAY ==
[2024-02-22] VITALS (12 sets, daily range): BP systolic 133–156; BP diastolic 77–85; PULSE 98–117; RESP 15–30; TEMP 36.2–37.2; O2SAT 88–96
--- NOTE | ~2024-02-22 | XR_ITS ---
EXAMINATION: XR chest 1V portable DATE: 02/29/2024 05:24 INDICATION: Shortness of breath TECHNIQUE: frontal view of the chest was obtained. COMPARISON: Chest radiograph and CT dated 02/28/2024 FINDINGS: Elevation the right hemidiaphragm. No significant interval change in bilateral interstitial and patch y airspace opacities most prominent in the right mid to lower and left lower lung zones. No pleural e ffusion or pneumothorax. The cardiomediastinal silhouette is normal. Cholecystectomy clips in right u pper quadrant. IMPRESSION: 1. No change in extensive bilateral lung disease which based on prior CT likely represent combination of pulmonary edema and pulmonary infarcts with differential also including pneumonia. Reviewed, dictated and finalized at [facility]. IMPRESSION: 1. No change in extensive bilateral lung disease which based on prior CT likely represent combination of pulmonary edema and pulmonary infarcts with different ial also including pneumonia.
--- NOTE | ~2024-02-22 | XR_ITS ---
Portable chest x-ray Comparison: 02/24/2024 Clinical History: Pneumonia Findings: Extensive hazy pulmonary disease is unchanged. No pleural effusion or pneumothorax. Cardi omediastinal silhouette is stable. Bones and soft tissues are unremarkable. Impression: Stable diffuse pulmonary disease. Reviewed, dictated and finalized at [facility] [place]. Impression: Stable diffuse pulmonary disease.
--- NOTE | ~2024-02-22 | XR_ITS ---
Portable chest x-ray Comparison: 02/25/2024 Clinical History: Aspiration pneumonitis Findings: Stable diffuse pulmonary disease present bilaterally. No pleural effusion or pneumothorax. Cardiomediastinal silhouette is stable. Bones and soft tissues are unremarkable. Impression: Stable diffuse pulmonary disease. Reviewed, dictated and finalized at [facility]. Impression: Stable diffuse pulmonary disease.
--- NOTE | ~2024-02-22 | US_ITS ---
EXAMINATION: US venous doppler [facility] DATE: 02/28/2024 10:58 INDICATION: Pulmonary embolism with lower limb pain. TECHNIQUE: Grayscale ultrasound images without and with compression and Doppler ultrasound images of the bilateral lower extremity veins were obtained. COMPARISON: None. FINDINGS: The visualized portions of right common femoral vein, profunda (deep) femoral vein, femoral vein, pop liteal vein, tibioperoneal trunk, gastrocnemius vein and greater saphenous vein outflow are patent. The visualized portions of left common femoral vein, profunda femoral vein, femoral vein, popliteal v ein, tibioperoneal trunk, gastrocnemius vein and greater saphenous vein outflow are patent. IMPRESSION: 1. No deep venous thrombosis in either lower limb. Reviewed, dictated and finalized at [facility].
--- NOTE | ~2024-02-22 | XR_ITS ---
Portable chest x-ray Comparison: 03/01/2024 Clinical History: Shortness of breath Findings: Patchy consolidation right lung and left lung base is stable from prior exam. Cardiomedia stinal silhouette is stable. Bones and soft tissues are unremarkable. Impression: Stable patchy bilateral consolidation, right worse than left. Correlate for bilateral pneumonia. Reviewed, dictated and finalized at [facility]. Impression: Stable patchy bilateral consolidation, right worse than left. Correlate for zari ateral pneumonia.
--- NOTE | ~2024-02-22 | XR_ITS ---
EXAMINATION: XR chest 1V portable DATE: 03/01/2024 12:42 INDICATION: Chest pain TECHNIQUE: frontal view of the chest was obtained. COMPARISON: Chest radiograph dated 02/29/[address] dated 02/28/2024 FINDINGS: Unchanged elevation of the right hemidiaphragm. Persistent airspace opacities throughout the right layla ng and at the left lower lung zone. No pleural effusion or pneumothorax. Heart size is normal. IMPRESSION: 1. No significant change in extensive bilateral lung disease likely representing combination of pulmo nary edema and pulmonary infarcts with differential also including pneumonia. Reviewed, dictated and finalized at location A. IMPRESSION: 1. No significant change in extensive bilateral lung disease likely representin g combination of pulmonary edema and pulmonary infarcts with differential also including pneumonia.
--- NOTE | ~2024-02-22 | XR_ITS ---
Portable chest x-ray Comparison: 02/26/2024 Clinical History: Aspiration pneumonia Findings: There is extensive patchy pulmonary disease, probably minimally improved in the left lung from prior exam. Cardiomediastinal silhouette is stable. Bones and soft tissues are unremarkable. Impression: Extensive patchy pulmonary disease is present, probably minimally improved in the left lung since marlin or exam. Reviewed, dictated and finalized at location M. Impression: Extensive patchy pulmonary disease is present, probably minimally improved in t he left lung since prior exam.
--- NOTE | ~2024-02-22 | CT_ITS ---
EXAMINATION: CTA chest PE protocol DATE: 02/22/2024 20:28 INDICATION: Shortness of breath. TECHNIQUE: Computed tomography angiography (CTA) of the chest was performed with 100 mL Omnipaque-350 intravenous contrast timed to evaluate the pulmonary arteries. Coronal maximum intensity projection 3D-reconstructions were created by the technologist. Automated exposure control and iterative reconst ruction technique were employed. The dose-length product was 480.86 mGy-cm. COMPARISON: Chest CT 01/22/2024 FINDINGS: There is widespread groundglass opacities and crazy paving throughout the lungs. No pleural effusion. The heart size is normal. No pericardial effusion. There is no pulmonary embolus. There ar e changes of cholecystectomy. There is moderate thoracic spondylosis and severe cervical spondylosis. IMPRESSION: 1. No pulmonary embolus. 2. Acute diffuse lung disease, consistent with pulmonary edema versus atypical pneumonia. Reviewed, dictated and finalized at location E.
--- NOTE | ~2024-02-22 | XR_ITS ---
EXAMINATION: XR chest 1V portable DATE: 02/23/2024 09:03 INDICATION: Congestive heart failure. Dyspnea. TECHNIQUE: frontal view of the chest was obtained. COMPARISON: Chest CT dated 02/22/2024 FINDINGS: Elevation right hemidiaphragm. Diffuse increased interstitial pattern with left perihilar predominant patchy groundglass opacities. No pleural effusion or pneumothorax. The cardiomediastinal silhouette is normal. Cholecystectomy clips in right upper quadrant. IMPRESSION: 1. Diffuse bilateral interstitial opacities and left perihilar predominant patchy airspace opacities which could represent moderate pulmonary edema or pneumonia. Reviewed, dictated and finalized at location A. IMPRESSION: 1. Diffuse bilateral interstitial opacities and left perihilar predominant patc hy airspace opacities which could represent moderate pulmonary edema or pneumon ia.
--- NOTE | ~2024-02-22 | CT_ITS ---
EXAMINATION: CTA chest PE protocol DATE: 02/28/2024 09:24 INDICATION: Acute respiratory failure with hypoxia TECHNIQUE: Computed tomography (CT) pulmonary angiogram of the chest was performed with 100 mL Omnipa que-350 intravenous contrast. Additional 3D reconstructions utilizing coronal maximum intensity proje ction (MIP) were performed. Automated exposure control and iterative reconstruction technique were em ployed. The dose-length product was 291.86 mGy-cm. COMPARISON: None FINDINGS: Evaluation mildly limited by mild to moderate amount of scattered respiratory motion artifact. There are pulmonary arterial filling defects consistent with pulmonary emboli in the distal right main pulm onary artery extending into segmental pulmonary arteries of the right upper and right lower lobes. Ad ditional pulmonary emboli are seen in a couple subsegmental pulmonary arteries in the left lower lobe and in the lateral segmental pulmonary artery of the right middle lobe. There are regions of consoli dation in the right middle and bilateral lower lobes corresponding to the vascular distribution of th e pulmonary emboli consistent with pulmonary infarcts. There are scattered groundglass opacities and some septal line thickening throughout the remainder of the bilateral lungs regions without definitiv e pulmonary emboli more likely related to pulmonary edema with differential including less likely add itional pulmonary infarct or pneumonia. Small right and very small left pleural effusions. There is m ild enlargement of the right pulmonary artery suggestive of pulmonary arterial hypertension. Heart si ze is normal. No leftward bowing of the ventricular septum to suggest heart strain. No pericardial ef fusion. Thoracic aorta is normal in caliber with no dissection. No pathologically enlarged thoracic l ymphadenopathy. Visualized upper abdomen is unremarkable. Mild to moderate thoracic spondylosis. IMPRESSION: 1. Bilateral pulmonary emboli and associated infarcts with moderate clot burden. Findings were discus sed with Ingrid Henderson, the nurse caring for the patient, at 9:45 AM. 2. Additional bilateral diffuse lung disease and favor pulmonary edema over additional infarcts or pn eumonia. Reviewed, dictated and finalized at location B. IMPRESSION: 1. Bilateral pulmonary emboli and associated infarcts with moderate clot burden . Findings were discussed with Ingrid Henderson, the nurse caring for the patie nt, at 9:45 AM. 2. Additional bilateral diffuse lung disease and favor pulmonary edema over add itional infarcts or pneumonia.
--- NOTE | ~2024-02-22 | XR_ITS ---
EXAMINATION: XR chest 1V portable DATE: 02/24/2024 09:47 INDICATION: Acute respiratory failure. TECHNIQUE: A single frontal view of the chest was obtained. COMPARISON: Chest single view 02/23/2024, chest CT 02/22/2024 FINDINGS: There are widespread airspace opacities in the lungs bilaterally. No pleural effusion or pn eumothorax. The heart size is normal. There are changes of cholecystectomy. IMPRESSION: 1. Stable diffuse lung disease, consistent with pulmonary edema versus pneumonia. Reviewed, dictated and finalized at location A. IMPRESSION: 1. Stable diffuse lung disease, consistent with pulmonary edema versus pneumoni a.
--- NOTE | 2024-02-22 16:49 | ECG_ITS ---
Test Date: 2024-02-22 16:51:36 Measurements Intervals Harper Rate: 109 P: 60 VT: 132 QRS: 69 QRSD: 92 T: 20 QT: 355 QTc: 479 Interpretive Statements SINUS TACHYCARDIA LEFT ATRIAL ENLARGEMENT [-0.15mV P WAVE IN V1/V2] NONSPECIFIC ST & T-WAVE ABNORMALITY BORDERLINE ECG No previous ECG available for comparison Electronically Signed On 02-23-2024 08:29:58 CDT by Eh Garcia M.D.
--- NOTE | 2024-02-22 16:53 | ED.SOB ---
HPI - SOB/Dyspnea General Chief Complaint: Shortness of Breath/Dyspnea <Alexx Cordoba MD - Last Filed: 02/23/24 08:53> Stated Complaint: hypoxia <Alexx Cordoba MD - Last Filed: 02/23/24 08:53> Time Seen by Provider: 02/22/24 16:45 <Alexx Cordoba MD - Last Filed: 02/23/24 08:53> History of Present Illness HPI Narrative: 48-year-old female presenting to the emergency department for evaluation of worsening shortness of breath since Saturday. Patient's suspect she had aspiration Saturday. Patient states since Saturday that she has had or worsening shortness of breath. Patient states that the worst of the point today that she needed to be evaluated. Patient was saturating at approximately 50% upon arrival emergency department. Patient states she has had history pneumonia but denies any prior history of PE or DVT. Patient does have prior history of pneumonia. Patient is also a smoker with history of asthma. <Alexx Cordoba MD - Last Filed: 02/23/24 08:53> Related Data Home Medications: Home Medications Medication Instructions Recorded Confirmed bupropion HCl 150 mg 24 hr tablet, 150 mg PO DAILY 09/06/22 02/22/24 extended release citalopram 40 mg tablet 40 mg PO DAILY 09/06/22 02/22/24 omeprazole 20 mg capsule,delayed 20 mg PO DAILY 10/23/22 02/22/24 release clonazepam 0.5 mg tablet 0.5 mg PO BID PRN Anxiety 03/22/23 02/22/24 gabapentin 100 mg capsule 300 mg PO TID 05/30/23 02/22/24 diclofenac sodium 75 mg 75 mg PO BID 12/30/23 02/22/24 tablet,delayed release docusate sodium 100 mg capsule 100 mg PO BID 12/30/23 02/22/24 famotidine 40 mg tablet 40 mg PO HS 12/30/23 02/22/24 ergocalciferol (vitamin D2) 1,250 1,250 mcg PO WEEKLY 02/22/24 02/22/24 mcg (50,000 unit) capsule phentermine 37.5 mg tablet 37.5 mg PO DAILY 02/22/24 02/22/24 <Alexx Cordoba MD - Last Filed: 02/23/24 08:53> Allergies/Adverse Reactions: Allergies Allergy/AdvReac Type Severity Reaction Status Date / Time naproxen AdvReac Gastrointestinal Verified 01/22/24 09:12 Upset <Alexx Cordoba MD - Last Filed: 02/23/24 08:53> Review of Systems Review of Systems: All systems reviewed & are unremarkable except as noted in HPI and below <Alexx Cordoba MD - Last Filed: 02/23/24 08:53> [facility] Past Medical History Medical History: Medical History (Updated 02/23/24 @ 03:00 by Ingrid Snell DO) Anxiety Asthma Chronic back pain Neck and low back Chronic obstructive pulmonary disease Chronically dry eyes Degenerative disc disease, cervical C4-C7 Degenerative disc disease, lumbar L4-S1 Depression Former cigarette smoker Gastroesophageal reflux disease History of rhabdomyolysis December 2023 Irritable bowel syndrome Labral tear of right hip joint Spondylosis, lumbosacral <Alexx Cordoba MD - Last Filed: 02/23/24 08:53> Surgical History Surgical History: Surgical History (Updated 02/23/24 @ 02:40 by Ingrid Snell DO) History of section (2016) X1 History of cholecystectomy History of colonoscopy with polypectomy (~1999) History of right cataract surgery History of tonsillectomy Status post anal fissurectomy <Alexx Cordoba MD - Last Filed: 02/23/24 08:53> Family History Family History: Family History (Updated 02/23/24 @ 02:41 by Ingrid Snell DO) Father Diabetes mellitus Hypertension Mother Hypertension Osteoarthritis Rheumatoid arthritis Grandparent Breast cancer Sibling Lupus <Alexx Cordoba MD - Last Filed: 02/23/24 08:53> Social History Social History: Social History (Updated 02/23/24 @ 02:45 by Ingrid Snell DO) Social History: She is . She lives at home with her 7-year-old daughter she has 2 grown sons other well. She smoked 1 pack of cigarettes per day for twenty-two years but quit in 2020. She denies any significant alcohol use. She denies illicit substance use. She works a
[2024-02-22] MEDS: ALBUTEROL SULFATE NEB 2.5 MG/3 ML INH INHALATION (16:59)
[2024-02-22 18:20] LABS: Hematocrit 27.8 % (37.0-47.0); Hemoglobin 8.7 g/dL (12.0-15.0); Mean Corpuscular HGB Conc 31.3 g/dl (32-36); Mean Corpuscular Hemoglobin 28.6 pg (26-34); Mean Corpuscular Volume 91.4 fl (80-100); Mean Platelet Volume 8.9 fl (7.4-10.4); Platelet Count Result 385 k/mm3 (150-375); Red Blood Count 3.04 M/mm3 (4.2-5.4); Red Cell Distribution Width 15.7 % (11.5-14.5); White Blood Count 17.4 K/mm3 (4.5-10.0)
[2024-02-22 18:32] LABS: Influenza A QL RT-PCR Negative (Negative); Influenza B QL RT-PCR Negative (Negative); RSV RNA, RT-PCR Negative (Negative); SARS-CoV-2 RNA PCR Negative (Negative)
[2024-02-22 18:37] LABS: Alanine Aminotransferase 28 U/L (6-35); Albumin Level 3.3 g/dL (3.5-5.1); Alkaline Phosphatase 118 U/L (38-126); Anion Gap 9 mmol/L (4-12); Aspartate Amino Transferase 47 U/L (14-36); Bilirubin,Total 0.3 mg/dL (0.2-1.3); Blood Urea Nitrogen 10 mg/dL (7-17); Calcium 8.2 mg/dL (8.4-10.2); Carbon Dioxide 31 mmol/L (22-30); Chloride 100 mmol/L (98-107); Estimated CRCL calculation 98 ml/min; Estimated Glomerular Filt Rate > 60; Glucose 140 mg/dL (65-110); Potassium 2.4 mmol/L (3.4-5.0); Sodium 140 mmol/L (137-145)
[2024-02-22] MEDS: SODIUM CHLORIDE 0.9% IV 1,000 ML 999 ML IV CONT (18:40)
[2024-02-22 18:49] LABS: Band Neutrophils Percent 7 % (0-6); Eosinophils Absolute Manual 0.17 K/mm3 (0.02-0.50); Eosinophils Percent Manual 1 % (0-4); Lymphocytes Absolute Manual 1.21 K/mm3 (1.1-4.5); Monocytes Absolute Manual 0.17 K/mm3 (0.1-0.90); Monocytes Percent Manual 1 % (3-9); Neutrophils Absolute Manual 15.83 K/mm3 (1.7-7.2); Neutrophils Percent Manual 84 % (46-73); Platelet Estimate Slightly Increased (Adequate); Total Cells Counted 100
[2024-02-22 18:50] LABS: Anisocytosis 2+; Hypochromasia 1+; Schistocytes None Seen
[2024-02-22] MEDS: POTASSIUM CHLORIDE 20 MEQ PACKET (FOR LIQUID) 40 MEQ PO (18:59)
--- NOTE | 2024-02-22 21:02 | PC.NURSE ---
Patient is a very difficult stick, and required a doctor to ultrasound IV her iv. multiple attempts have been made to draw labs and get an IV placed. Phlebotomy called and will send someone to draw her blood cultures when there is a person available.
[2024-02-22 21:47] LABS: Lactic Acid Reflex 1.1 mmol/L (0.7-2.0)
[2024-02-22 21:48] LABS: Magnesium 1.9 mg/dL (1.6-2.3)
[2024-02-22] MEDS: IPRATROPIUM 0.5 MG/ALBUTEROL SULFATE 2.5 MG AMPUL.NEB 3 ML INHALATION (21:58)
[2024-02-22 22:03] LABS: NT Pro B Type Natriuretic Pept 2210 pg/mL (19.9-100)
[2024-02-22] MEDS: POTASSIUM CHLORIDE 20 MEQ ER TABLET 40 MEQ PO (22:14)
[2024-02-22] MEDS: methylPREDNISolone SOD SUCC 125 MG VIAL IV PUSH (22:14)
--- NOTE | 2024-02-22 22:22 | PM.IMHP ---
H&P: HPI History of Present Illness Date/Time: 02/22/24 22:22 Chief Complaint: Shortness of breath Narrative: 48-year-old female with a past medical history of irritable bowel syndrome, anemia, hiatal hernia, GERD, COPD (has never had PFTs), peripheral neuropathy, anxiety and depression who presented to the ER from home due to shortness of breath. Symptoms started 6 days ago. Accompanying symptoms included frequent belching and reflux of acid into her mouth. She thinks that some of the symptoms may be due to dry heaves. She reports associated nausea and that her feet stomach just feels upset. A cough that is dr and fever stable for yesterday measuring 101.3. Cough is worse when she tries to take a deep breath. She has noticed increased work of breathing and over the last 5 days has now developed peripheral edema. She reports that she does not lay flat very often due to her pain in her neck but has not noticed any significant orthopnea. She has not had any palpitations and denies any recent ill contacts. She reports that she does have history of dysphagia feeling as if she has difficulty getting food down her throat. This is been worse recently. She has had prior EGDs but the last 1 was about 5 years ago and was unremarkable. She also has been having 3-4 months of intermittent left-sided lower abdominal pain that she initially associated with her intermittent constipation alternating with diarrhea related to her irritable bowel syndrome. Last month she presented to the ER for the left lower abdominal pain and CT demonstrated diffuse small bowel wall thickening mild jejunal dilatation with air-fluid levels and mild small-bowel intussusception. Inflammatory, infectious ideology, portal hypertension angioedema lymphoma word listed under the differential. She denies any significant abdominal pain at the moment. Her biggest complaint is shortness of breath. On arrival to the ER patient was found to be hypoxic with oxygen saturations of 88% on room air. She had significant leukocytosis with bandemia and significant hypokalemia potassium 2.4 in the ER she received antibiotic therapy with Rocephin and azithromycin and was placed on supplemental oxygen. On arrival to the medical floor patient's oxygen saturations were 89% on room air. She reports she does have COPD but only rarely has to use her inhaler. She is requesting something for cough. She reports occasional incontinence at night but denies any dysuria, changes in urinary frequency or hematuria. She reports that she lost her a couple of years ago. Since is she has had progressive weight gain and is up about 100 lb. She has continued to gain weight bite phentermine use. She had normal thyroid studies performed in December. She Denies sleep apnea but has crowded posterior oropharynx. Patient reports fatigue and falls asleep easily at home and does not never has any energy. Patient is tearful when she talks about her medical conditions. She lytes everything back to proximally 4 years ago when her . She states that since that time she has had significant weight gain. Weight was The patient reports that since October she has had multiple ER visits. She had a ER visit in October for UTI (culture grew out E coli). She got a new tattoo placed on her right forearm at which time she noticed increased inflammation redness and purulent drainage the patient was discharged on clindamycin. She had a ER visit in December for abdominal pain and had minimal colonic diverticulosis without evidence of diverticulitis. He had another visit to the ER late in December at which time she was found to have rhabdomyolysis of uncertain etiology. She then return for shortness of breath and abdominal pain abdominal pain and december she presented to the ER for the left lower abdominal pain and CT demonstrated diffuse small bowel wall thickening mild jejunal dilatation with air-fluid levels and mild small-bowel intussu
--- NOTE | 2024-02-22 22:34 | ADMGEN ---
This patient, Anat Phelan, was admitted to Medical Room 250-01. Patient/family oriented to hospital policies and general routines including ID bracelet, bed and alarms, visiting hours, pain management, procedures, bathroom and other care routines, personal items, smoking policy, room service/diet, and visiting hours. Information on how to activate the Rapid Response Team has been discussed. Patient/Family are encouraged to report perceived risks to care and to ask questions if they do not understand what they are told or what they should do.
[2024-02-22] MEDS: AZITHROMYCIN 500 MG/NS 250 ML 500 MG/250 ML BAG 250 MG IVPB (22:43)
[2024-02-22] MEDS: SODIUM CHLORIDE 0.9% IV 1,000 ML 100 ML IV CONT (22:43)
[2024-02-23] VITALS (32 sets, daily range): BP systolic 113–143; BP diastolic 62–98; PULSE 74–108; RESP 16–24; TEMP 35.9–36.4; O2SAT 75–100
[2024-02-23] MEDS: LEVALBUTEROL NEB 1.25 MG/3 ML 0.63 MG INHALATION (02:32)
[2024-02-23] MEDS: metroNIDAZOLE 250MG/ISO 50 ML 250 MG/50 ML BAG 50 MG IVPB ×4 (03:12→21:09)
--- NOTE | 2024-02-23 03:42 | PC.NURSE ---
Addendum entered by Hui Allen RN 02/23/24 03:45: THE 70'S. NOTIFIED AND ORDERED WERE GIVEN TO MOVE THE PT TO IMU 201. PT IS BEING TRANSPORTED IN WHEELCHAIR. Original Note: DR SINGH PLACED AN ORDER FOR CONT PULSE OX. ENTERED ROOM TO PT SLEEPING COMFORTABLY. PT WAS ORIENTED WHEN I EXPLAINED THE NEED FOR THE CONT PULSE OX. UPON CHECKING TO SEE IF THE MONTIOR WAS PICKING UP ON THE TELEMETRY THE READING WAS 68% ON 5L NC. I THEN GRABBED A VITALS CART AND THAT TOO READ O2 SATS IN THE 60-70 RANGE. PLACED PT ON NON REBREATHER AT 6L AND PT O23 SATS CAME BACK TO THE 90'S. AT ONE POINT PT WAS AT 100 % THEN SHORTLY DROPPED BACK INTO MT
--- NOTE | 2024-02-23 03:52 | PC.NURSE ---
This patient, Anat Phelan, was received from [facility] on 02/23/24 at 0352 for higher level of care due to oxygen demands. Patient/family oriented to unit policies and routines.
[2024-02-23 06:37] LABS: Basophils Absolute Auto 0.2 K/mm3 (0.0-0.1); Basophils Percent Auto 0.9 % (0.2-1.2); Eosinophils Percent Auto 0.2 % (0-4.4); Hematocrit 32.9 % (37.0-47.0); Hemoglobin 9.9 g/dL (12.0-15.0); Immature Granulocyte Absolute 1.35 K/mm3 (0.00-0.031); Immature Granulocyte Percent A 7.3 % (0-0.5); Lymphocytes Absolute Auto 0.72 K/mm3 (0.9-3.2); Lymphocytes Percent Auto 3.9 % (18.3-44.2); Mean Corpuscular HGB Conc 30.1 g/dl (32-36); Mean Corpuscular Hemoglobin 28.3 pg (26-34); Mean Platelet Volume 9.2 fl (7.4-10.4); Monocytes Absolute Auto 0.3 K/mm3 (0.1-0.6); Monocytes Percent Auto 1.8 % (2.6-8.5); Neutrophils Absolute Auto 15.9 K/mm3 (1.3-6.7); Neutrophils Percent Auto 85.9 % (45.5-73.1); Nucleated Red Blood Cells Perc 0.1 % (0.0-0.2); Platelet Count Result 436 k/mm3 (150-375); Red Cell Distribution Width 15.7 % (11.5-14.5); White Blood Count 18.5 K/mm3 (4.5-10.0)
[2024-02-23] MEDS: IPRATROPIUM BR 0.02% INH SOLN 0.5 MG/2.5 ML VIAL INHALATION ×3 (07:17→20:38)
[2024-02-23] MEDS: LEVALBUTEROL NEB 1.25 MG/3 ML INHALATION ×3 (07:18→20:38)
[2024-02-23] MEDS: buPROPion HCL XL (24 HR) 150 MG TABCR PO (08:24)
[2024-02-23] MEDS: GABAPENTIN 300 MG CAPSULE PO ×3 (08:24→16:42)
[2024-02-23] MEDS: ENOXAPARIN 40 MG/0.4 ML SYRINGE SUB-Q (08:24)
[2024-02-23] MEDS: FOLIC ACID 1 MG TABLET PO (08:24)
[2024-02-23] MEDS: CITALOPRAM HYDROBROMIDE 20 MG TABLET 40 MG PO (08:24)
[2024-02-23] MEDS: PANTOPRAZOLE 40 MG TABLET PO ×2 (08:24→21:06)
[2024-02-23] MEDS: DOCUSATE SODIUM 100 MG CAPSULE PO ×2 (08:24→21:06)
[2024-02-23] MEDS: guaiFENesin 600 MG/DEXTROMETHORPHAN 30 MG SR TAB 12 HR 1 TAB PO ×2 (08:24→21:06)
[2024-02-23] MEDS: POLYSACCHARIDE IRON COMPLEX 150 MG CAPSULE PO ×2 (08:25→16:42)
[2024-02-23] MEDS: ACETAMINOPHEN 325 MG TABLET 650 MG PO ×2 (08:33→18:08)
--- NOTE | 2024-02-23 08:34 | PM.IMPN ---
Progress Note: A&P Assessment and Plan (1) Acute hypoxic respiratory failure: Code(s): J96.01 - Acute respiratory failure with hypoxia Status: Acute (2) Pneumonia: Qualifiers: Laterality: bilateral Lung location: unspecified part of lung Pneumonia type: due to unspecified organism Qualified Code(s): J18.9 - Pneumonia, unspecified organism Code(s): J18.9 - Pneumonia, unspecified organism Status: Acute (3) Gastroesophageal reflux disease: Qualifiers: Esophagitis presence: esophagitis presence not specified Qualified Code(s): K21.9 - Gastro-esophageal reflux disease without esophagitis Code(s): K21.9 - Gastro-esophageal reflux disease without esophagitis Status: Acute (4) Chronic obstructive pulmonary disease: Qualifiers: COPD type: unspecified COPD Qualified Code(s): J44.9 - Chronic obstructive pulmonary disease, unspecified Code(s): J44.9 - Chronic obstructive pulmonary disease, unspecified Status: Acute (5) Acute hypokalemia: Code(s): E87.6 - Hypokalemia Status: Acute (6) Normocytic anemia: Code(s): D64.9 - Anemia, unspecified Status: Acute Plan Acute respiratory failure with hypoxemia,, multifocal pneumonia Denies history of O2 therapy at home Patient also denies history of COPD CT scan suggest bilateral pneumonia, patient leukocytosis 18,000, Patient is azithromycin ceftriaxone and Flagyl IV to cover community-acquired pneumonia and possible aspiration pneumonia Pending urine Legionella antigen, urine pneumococcal antigen and mycoplasma PCR. Will repeat CBC with diff and electrolyte panel in a.m. No definite diagnosis of COPD, The 1st ABG did not show CO2 retention,, 2nd ABG showed mild CO2 retention possible due to respiratory muscle fatigue Continue scheduled nebulizer treatments with Xopenex and Atrovent. Consult esthetician spa for evaluation treatment Acute heart failure Unknown history of cardiac issues But patient has elevated BNP, CT scan shows pulmonary edema Possible acute heart failure resulting from sepsis and pneumonia Provided Lasix 80 mg IV push once, patient made significant amount of urine Patient felt dyspnea improving after she received IV Lasix Pending echocardiogram Hypokalemia Received potassium chloride 80 mg Repeated BMP, Corrected Chronic anemia Hemoglobin close to baseline patient does have a low iron and low% saturation Continue iron supplement with iron polysaccharide 150 mg b.i.d. p.o. Sepsis Patient received fluid resuscitation Patient has obvious fluid overload Hold normal saline IV now Follow-up input output GERD Continue Protonix 40 mg daily p.o. continue home anxiety and depression medications. Full code Subjective Date/time seen: 02/23/24 08:34 Interval history: I saw examined the patient today, patient had respiratory distress, patient was placed on 5 flow oxygen, patient has a cough with scant phlegm, patient denies nausea vomiting recently but has acid reflux. Patient had fever at home. And patient was also have leukocytosis, and is 18,500 with a left shift, repeated ABG showed CO2 retention, pCO2 46.7, PO2 72.4, pH 7.416 Exam Narrative: GENERAL: Ill-appearing, in no acute distress. Well-nourished. - EYES: EOMI. Anicteric. - HENT: Moist mucous membranes. - LUNGS: Crackles bilateral base, scattered wheezing, tachypnea, - CARDIOVASCULAR: Regular rate and rhythm. No murmur. No JVD. Tachycardia - ABDOMEN: Soft, non-tender and non-distended. No palpable masses. - EXTREMITIES: No edema. Peripheral pulses 2+. Non-tender. - NEUROLOGIC: No focal neurological deficits. CN II-XII grossly intact. - PSYCHIATRIC: Awake, Alert and oriented x 3. Appropriate mood and affect. - SKIN: No rashes or lesions. Warm. - LYMPH: No cervical lymphadenopathy. Objective Data Vital Signs Vital Signs: Vital Signs - 24 hr 02/22/24 16
[2024-02-23] MEDS: FUROSEMIDE INJ 100 MG/10 ML VIAL 80 MG IV PUSH (08:55)
[2024-02-23 09:14] LABS: Alveolar/Arterial O2 Gradient 180.8 mmHg; Base Excess ABG 4.2 mEq/l (+/-2.0); Fractional Inspired Oxygen 43 %; HCO3 ABG 29.3 mEq/l (22.0-26.0); Oxygen Content ABG 12.8 %vol (16.0-22.0); Oxygen Saturation ABG 94.7 % (95.0-100.0); Oxyhemoglobin 93.4 % THb (90.0-100.0); PCO2 ABG 46.7 mmHg (35.0-45.0); PO2 ABG 72.4 mmHg (80.0-100.0); PO2 FiO2 Ratio Arterial Blood 1.68 %; Total Hemoglobin 9.7 g/dL (12.0-18.0); pH ABG 7.416 (7.350-7.450)
[2024-02-23 09:15] LABS: Site Drawn RIGHT RADIAL
[2024-02-23 09:16] LABS: Device HIGH FLOW THERAPY
[2024-02-23 09:23] LABS: Anion Gap 10 mmol/L (4-12); Blood Urea Nitrogen 6 mg/dL (7-17); Calcium 8.7 mg/dL (8.4-10.2); Carbon Dioxide 27 mmol/L (22-30); Chloride 104 mmol/L (98-107); Estimated CRCL calculation 133 ml/min; Estimated Glomerular Filt Rate > 60; Glucose 114 mg/dL (65-110); Potassium 3.6 mmol/L (3.4-5.0); Sodium 141 mmol/L (137-145)
--- NOTE | 2024-02-23 13:14 | PM.CNPUL ---
Assessment and Plan Assessment and plan (1) Acute hypoxic respiratory failure: Code(s): J96.01 - Acute respiratory failure with hypoxia Status: Acute Assessment and Plan: This 48-year-old female presented with a few days' history of progressively worsening shortness of breath, a low-grade fever, hypoxemia, and bilateral infiltrates, predominantly ground-glass opacities. She did not have a pulmonary embolism. Chest CT images are not available for review. The patient reported that her symptoms began after an episode of vomiting with possible aspiration approximately 6 days ago. Her respiratory status has remained stable over the past day while on antibiotics for possible aspiration pneumonia and receiving high-flow nasal cannula oxygen therapy. Given the patient's clinical history and negative viral studies, aspiration pneumonia is considered likely. Plan: Agree with the current regimen for possible aspiration pneumonia. Will continue to monitor respiratory status in collaboration with you. (2) Pneumonia: Qualifiers: Laterality: bilateral Lung location: unspecified part of lung Pneumonia type: due to unspecified organism Qualified Code(s): J18.9 - Pneumonia, unspecified organism Code(s): J18.9 - Pneumonia, unspecified organism Status: Acute (3) Depression with anxiety: Code(s): F41.8 - Other specified anxiety disorders Status: Acute (4) Irritable bowel syndrome: Code(s): K58.9 - Irritable bowel syndrome without diarrhea Status: Acute (5) Gastroesophageal reflux disease: Qualifiers: Esophagitis presence: esophagitis presence not specified Qualified Code(s): K21.9 - Gastro-esophageal reflux disease without esophagitis Code(s): K21.9 - Gastro-esophageal reflux disease without esophagitis Status: Acute (6) Smoker: Code(s): F17.200 - Nicotine dependence, unspecified, uncomplicated Status: Acute History of Present Illness History of Present Illness Consult date: 02/23/24 Chief complaint: Hypoxic respiratory failure Narrative: This 48-year-old female presented with a few days' history of progressively worsening shortness of breath, cough, and a low-grade fever. She was in her usual state of health until approximately 6 days ago when she began vomiting while in bed. The patient believes she aspirated, as she experienced a coughing spell immediately afterward. The following day, she developed a dry cough, which was subsequently accompanied by progressively increasing shortness of breath and a low-grade fever of 101?F. She did not report chest pain, hemoptysis, or wheezing. In the emergency room, she was found to be hypoxemic, and a chest CT revealed widespread ground-glass opacities and crazy paving throughout the lungs. The actual CT images are not available for review. She also had leukocytosis and has been treated with antibiotics for possible aspiration pneumonia. Over the past 12 hours, her respiratory status has been stable, and she remains on high-flow nasal cannula. Her past medical history includes anxiety, depression, PTSD, GERD (for which she is receiving treatment), and a possible underlying autoimmune disease. She has been hospitalized multiple times over the past few years for various complaints. During her last hospitalization approximately one year ago, a chest CT showed a focal tree-in-bud infiltrate in the posteromedial superior segment of the left lower lobe, likely infectious. The patient has a 20-year history of smoking one pack per day, with no history of vaping or smoking marijuana. PCR for common viruses negative. Screening for autoimmune disease was negative last month Review of Systems Review of Systems: Patient reports no significant weight changes. She has no history of nasal allergies. She has history of acid reflux disease as stated above and has been on medications. She was about to see a GI specialist fo
[2024-02-23 15:58] LABS: CRP 42.9 mg/dL (<1.0)
[2024-02-23] MEDS: FUROSEMIDE INJ 40 MG/4 ML VIAL IV PUSH (18:01)
[2024-02-24] VITALS (23 sets, daily range): BP systolic 111–151; BP diastolic 57–82; PULSE 71–100; RESP 18–24; TEMP 36.4–36.9; O2SAT 93–98
--- NOTE | 2024-02-24 | ECHO_ITS ---
Patient Info Name: Anat Phelan Age: 48 years : 1975 Gender: Female Ht: 65 in Wt: 212 lbs BSA: 2.14 m2 HR: 95 bpm BP: 120 / 65 mmHg Heart Rhythm: Sinus Rhythm Technical Quality: Fair Exam Date: 02/24/2024 7:18 AM Exam Location: Echo Lab Patient Status: Inpatient Admit Date: 02/22/2024 Staff Ordering Physician: Ingrid Snell DO Physician Obstetrician: Nancie Dunbar RDCS Attending Provider: Ingrid Snell DO Referring Physician: Alis ATWOOD; Exam Type: CA echo doppler color flow Study Info Indications - peripheral edema, hypoxia Complete two-dimensional, color flow and Doppler transthoracic echocardiogram is performed. Summary 1. Complete two-dimensional, color flow and Doppler transthoracic echocardiogram is performed. 2. Essential unremarkable 2D/Doppler echocardiogram. Left Ventricle Left ventricular chamber dimension is normal. Left ventricular systolic function is normal, estimated at 60-65%. The left ventricular diastolic function is normal. Right Ventricle Right ventricular chamber dimension is normal. Left Atria Left atrial chamber dimension is normal. Right Atria Right atrial chamber dimension is normal. Aortic Valve The aortic valve is normal. Pulmonic Valve The pulmonic valve is not well visualized. Mitral Valve The mitral valve has normal leaflets. Tricuspid Valve The tricuspid valve leaflets are normal. Pericardium/Pleural The pericardium appears normal. Aorta The aortic root size at the sinus of Valsalva is normal. Left Ventricular Outflow Tract Name Value Normal LVOT 2D LVOT Diameter 2.0 cm LVOT Doppler LVOT Peak Gradient 6 mmHg LVOT Mean Gradient 3 mmHg LVOT VTI 18 cm LVOT VTI/AV VTI Ratio 0.7 LVOT Stroke Volume 55 ml LVOT CO 5.1 l/min LVOT CI 2.4 l/min/m2 Pulmonic Valve Name Value Normal RVOT Doppler RVOT Peak Gradient 2 mmHg PV Doppler PV Peak Gradient 6 mmHg Mitral Valve Name Value Normal MV Doppler MV Decel [place] 857 cm/s2 MV PHT 50 ms MV Area (PHT) 4.4 cm2 4.0-5.0 MV Diastolic Function MV E Peak Velocity 149 cm/s MV A Peak Velocity 107 cm/s MV E/A 1.4
[2024-02-24] MEDS: IPRATROPIUM BR 0.02% INH SOLN 0.5 MG/2.5 ML VIAL INHALATION ×4 (02:19→20:08)
[2024-02-24] MEDS: LEVALBUTEROL NEB 1.25 MG/3 ML INHALATION ×4 (02:19→20:08)
[2024-02-24] MEDS: metroNIDAZOLE 250MG/ISO 50 ML 250 MG/50 ML BAG 50 MG IVPB ×4 (02:41→20:43)
[2024-02-24 04:27] LABS: Basophils Absolute Auto 0.1 K/mm3 (0.0-0.1); Basophils Percent Auto 0.4 % (0.2-1.2); Eosinophils Absolute Auto 0.3 K/mm3 (0-0.3); Eosinophils Percent Auto 1.8 % (0-4.4); Hematocrit 25.7 % (37.0-47.0); Immature Granulocyte Percent A 8.8 % (0-0.5); Lymphocytes Absolute Auto 1.85 K/mm3 (0.9-3.2); Lymphocytes Percent Auto 10.8 % (18.3-44.2); Mean Corpuscular HGB Conc 31.1 g/dl (32-36); Mean Corpuscular Hemoglobin 28.3 pg (26-34); Mean Corpuscular Volume 90.8 fl (80-100); Mean Platelet Volume 9.2 fl (7.4-10.4); Monocytes Absolute Auto 0.6 K/mm3 (0.1-0.6); Monocytes Percent Auto 3.5 % (2.6-8.5); Neutrophils Absolute Auto 12.8 K/mm3 (1.3-6.7); Neutrophils Percent Auto 74.7 % (45.5-73.1); Nucleated Red Blood Cells Perc 0.2 % (0.0-0.2); Platelet Count Result 387 k/mm3 (150-375); Red Blood Count 2.83 M/mm3 (4.2-5.4); Red Cell Distribution Width 15.9 % (11.5-14.5); White Blood Count 17.1 K/mm3 (4.5-10.0)
[2024-02-24 04:42] LABS: Anion Gap 2 mmol/L (4-12); Blood Urea Nitrogen 11 mg/dL (7-17); Calcium 8.2 mg/dL (8.4-10.2); Carbon Dioxide 39 mmol/L (22-30); Chloride 96 mmol/L (98-107); Estimated CRCL calculation 133 ml/min; Estimated Glomerular Filt Rate > 60; Glucose 95 mg/dL (65-110); Potassium 2.7 mmol/L (3.4-5.0); Sodium 137 mmol/L (137-145)
[2024-02-24] MEDS: POTASSIUM CHLORIDE 20 MEQ ER TABLET 40 MEQ PO ×2 (06:12→08:54)
[2024-02-24 06:38] LABS: Magnesium 1.9 mg/dL (1.6-2.3)
--- NOTE | 2024-02-24 07:40 | ECG_ITS ---
Test Date: 2024-02-24 07:58:20 Measurements Intervals [place] Rate: 87 P: 65 MT: 122 QRS: 64 QRSD: 93 T: 48 QT: 383 QTc: 463 Interpretive Statements SINUS RHYTHM WITHIN NORMAL LIMITS Compared to ECG 02/22/2024 16:51:[address] AND T ABNORMALITY HAS RESOLVED Electronically Signed On 02-24-2024 15:46:24 CDT by Eh Garcia M.D.
[2024-02-24] MEDS: clonazePAM (*CRX) 0.5 MG TABLET PO ×2 (07:55→20:32)
--- NOTE | 2024-02-24 08:20 | PM.IMPN ---
Progress Note: A&P Assessment and Plan (1) Acute hypoxic respiratory failure: Code(s): J96.01 - Acute respiratory failure with hypoxia Status: Acute (2) Pneumonia: Qualifiers: Laterality: bilateral Lung location: unspecified part of lung Pneumonia type: due to unspecified organism Qualified Code(s): J18.9 - Pneumonia, unspecified organism Code(s): J18.9 - Pneumonia, unspecified organism Status: Acute (3) Gastroesophageal reflux disease: Qualifiers: Esophagitis presence: esophagitis presence not specified Qualified Code(s): K21.9 - Gastro-esophageal reflux disease without esophagitis Code(s): K21.9 - Gastro-esophageal reflux disease without esophagitis Status: Acute (4) Chronic obstructive pulmonary disease: Qualifiers: COPD type: unspecified COPD Qualified Code(s): J44.9 - Chronic obstructive pulmonary disease, unspecified Code(s): J44.9 - Chronic obstructive pulmonary disease, unspecified Status: Acute (5) Acute hypokalemia: Code(s): E87.6 - Hypokalemia Status: Acute (6) Normocytic anemia: Code(s): D64.9 - Anemia, unspecified Status: Acute Plan Acute respiratory failure with hypoxemia,, multifocal pneumonia Denies history of O2 therapy at home Patient also denies history of COPD CT scan suggest bilateral pneumonia, patient leukocytosis 18,000, Patient is azithromycin ceftriaxone and Flagyl IV to cover community-acquired pneumonia and possible aspiration pneumonia Pending urine Legionella antigen, urine pneumococcal antigen and mycoplasma PCR. No definite diagnosis of COPD, patient stopped smoking about 3 years Upon arrival The 1st ABG did not show CO2 retention, 2nd ABG showed mild CO2 retention possible due to respiratory muscle fatigue Continue scheduled nebulizer treatments with Xopenex and Atrovent. Consult audit manager for evaluation treatment, Patient denies abdomen pain, nausea vomiting diarrhea, patient had a bowel movement yesterday Continue current antibiotics per audit manager Acute heart failure/or fluid overload Unknown history of cardiac issues But patient has elevated BNP, CT scan shows pulmonary edema Possible acute heart failure resulting from sepsis and pneumonia Provided Lasix 80 mg IV push once morning 40 mg IV push in the, patient made significant amount of urine on Patient felt dyspnea improving after she received IV Lasix 02/22 Pending echocardiogram Hypokalemia Received potassium chloride 80 mg Repeated BMP, Corrected Chronic anemia Hemoglobin close to baseline patient does have a low iron and low% saturation Continue iron supplement with iron polysaccharide 150 mg b.i.d. p.o. Follow-up stool guaiac, iron panel, ferritin level, Sepsis Patient received fluid resuscitation Patient has obvious fluid overload Hold normal saline IV now Follow-up input output GERD Continue Protonix 40 mg daily p.o. Patient denies abdomen pain, nausea vomiting, patient had bowel movement yesterday continue home anxiety and depression medications. Full code Subjective Date/time seen: 02/24/24 08:20 Interval history: Patient is afebrile over the night, blood pressure stable, patient has tachypnea, tachycardia nice reviewed, leukocytosis persists 17 sounds and potassium 2.4. Patient denies abdomen pain, nausea vomiting diarrhea. Patient has a bowel movement yesterday.. Patient has bilateral chest discomfort associated with cough and deep. Patient still has dyspnea patient is on high-flow oxygen Exam Narrative: GENERAL: Ill-appearing, in no acute distress. Well-nourished. - EYES: EOMI. Anicteric. - HENT: Moist mucous membranes. - LUNGS: Crackles right lung base, no wheeze, tachypnea, - CARDIOVASCULAR: Regular rate and rhythm. No murmur. No JVD. Tachycardia - ABDOMEN: Soft, non-tender and non-distended. No palpable masses. - EXTREMITIES: No edema. Pe
[2024-02-24 08:35] LABS: Troponin I 0.024 ng/mL (0.000-0.034)
--- NOTE | 2024-02-24 08:52 | PM.PNPUL ---
Progress Note: A&P Assessment and Plan (1) Acute hypoxic respiratory failure: Code(s): J96.01 - Acute respiratory failure with hypoxia Status: Acute Assessment and Plan: A 48-year-old female presented with acute respiratory failure, bilateral infiltrates predominantly characterized by ground-glass opacities, a low-grade fever, and a dry cough without sputum production. Given her known history of dysphagia and a possible aspiration event approximately one week ago, these findings suggest severe aspiration pneumonitis as the most likely cause. The patient has been treated with Flagyl for pneumonia and has been on high-flow nasal cannula. Her respiratory status has remained essentially unchanged over the past [address] images now available; to my review they show widespread ground-glass opacities in both lungs, slightly worse in the right lung, with no evidence of consolidation or pleural effusions. CRP is elevated, and the white cell count, while still elevated, is trending downwards. Plan: The chest CT findings are consistent with severe aspiration pneumonitis. We will continue the current antibiotic regimen and administer a single dose of IV Solu-Medrol 60 mg today, with close monitoring of the patient. Although the use of IV steroids is controversial, they may help expedite the resolution of infiltrates, particularly ground-glass opacities associated with inflammation. Additionally, the patient will require a GI evaluation to address her dysphagia. (2) Pneumonia: Qualifiers: Laterality: bilateral Lung location: unspecified part of lung Pneumonia type: due to unspecified organism Qualified Code(s): J18.9 - Pneumonia, unspecified organism Code(s): J18.9 - Pneumonia, unspecified organism Status: Acute (3) Gastroesophageal reflux disease: Qualifiers: Esophagitis presence: esophagitis presence not specified Qualified Code(s): K21.9 - Gastro-esophageal reflux disease without esophagitis Code(s): K21.9 - Gastro-esophageal reflux disease without esophagitis Status: Acute (4) Smoker: Code(s): F17.200 - Nicotine dependence, unspecified, uncomplicated Status: Acute Subjective Date/time seen: 02/24/24 08:52 Interval history: The patient has no new respiratory symptoms and continues to experience a mild, dry cough. Her shortness of breath has not progressed over the past 36 hours, and she remains on high-flow nasal cannula. The patient provided a detailed description of her dysphagia, stating that she frequently has difficulty swallowing solid food, which seems to get stuck in her throat. She has a history of GERD and has scheduled an appointment with our GI specialist. Over the last 24 hours, she has had no fever or chills. Review of Systems Review of Systems: All systems reviewed & are unremarkable except as noted in HPI and below (HPI and below) Exam Narrative: GENERAL APPEARANCE: Well developed, well nourished, alert and cooperative, and appears to be in no acute distress while on supplemental oxygen via high-flow nasal cannula SKIN: Inspection of the skin reveals no rashes, ulcerations or petechiae. HEENT: Sclerae anicteric and conjunctivae pink and moist. Extraocular movements were intact and pupils were equal, round, and reactive to light. The oral mucosa, hard and soft palate, tongue and posterior pharynx were normal. NECK: Supple. There was no thyroid enlargement, and no tenderness, or masses were felt. CHEST: Normal AP diameter and normal contour without any kyphoscoliosis. LUNGS: Rare crackles right base posteriorly otherwise no wheezing CARDIAC: There was a regular rate and rhythm without any murmurs, gallops, rubs. ABDOMEN: Soft and nontender with normal bowel sounds. There was no organomegaly. LYMPH NODES: No lymphadenopathy was appreciated in the neck. EXTREMITIES: No cyanosis, clubbing or edema. NEUROLOGIC: Alert and oriented x 3. Nor
[2024-02-24] MEDS: CITALOPRAM HYDROBROMIDE 20 MG TABLET 40 MG PO (08:54)
[2024-02-24] MEDS: buPROPion HCL XL (24 HR) 150 MG TABCR PO (08:54)
[2024-02-24] MEDS: POLYSACCHARIDE IRON COMPLEX 150 MG CAPSULE PO ×2 (08:54→17:54)
[2024-02-24] MEDS: GABAPENTIN 300 MG CAPSULE PO ×3 (08:55→17:54)
[2024-02-24] MEDS: DOCUSATE SODIUM 100 MG CAPSULE PO ×2 (08:55→20:32)
[2024-02-24] MEDS: guaiFENesin 600 MG/DEXTROMETHORPHAN 30 MG SR TAB 12 HR 1 TAB PO ×2 (08:55→20:32)
[2024-02-24] MEDS: FOLIC ACID 1 MG TABLET PO (08:55)
[2024-02-24] MEDS: PANTOPRAZOLE 40 MG TABLET PO ×2 (09:41→20:32)
--- NOTE | 2024-02-24 09:45 | P.CONGI_ITS ---
I, Dean Hyman MD, have provided a substantive portion of the care of this patient and discussed the patient with my Nurse Practitioner. I have reviewed any new relevant radiographic and laboratory results including medications. I agree with her documentation as noted below.?I personally performed the medical decision making and much of the history and exam for this encounter. admitted for sepsis and respiratory failure due to pneumonia, she is feeling better but still requiring high flow oxygen and in distress on exertion. She has been dealing with GI issues for years but lately with some dysphagia to solids and nausea, she normally does not have regular BM, no recent colonoscopy. Also GERD on ppi. Noted to have ABDULAZIZ and mild elevated liver enzymes. Plan is to do EGD and colonoscopy probably in 3-4 weeks after current status improves, also ordered liver work up. Assessment and Plan Assessment and plan (1) Dysphagia: Qualifiers: Dysphagia type: esophageal phase Qualified Code(s): R13.19 - Other dysphagia Code(s): R13.10 - Dysphagia, unspecified Status: Acute (2) Nausea: Code(s): R11.0 - Nausea Status: Acute (3) Early satiety: Code(s): R68.81 - Early satiety Status: Acute (4) Appetite loss: Code(s): R63.0 - Anorexia Status: Acute (5) Constipation: Qualifiers: Constipation type: other constipation type Qualified Code(s): K59.09 - Other constipation Code(s): K59.00 - Constipation, unspecified Status: Acute (6) Diarrhea: Qualifiers: Diarrhea type: unspecified type Qualified Code(s): R19.7 - Diarrhea, unspecified Code(s): R19.7 - Diarrhea, unspecified Status: Acute (7) Hematochezia: Code(s): K92.1 - Melena Status: Acute (8) Elevated liver transaminase level: Code(s): R74.01 - Elevation of levels of liver transaminase levels Status: Acute (9) ABDUALZIZ (iron deficiency anemia): Qualifiers: Iron deficiency anemia type: other iron deficiency Qualified Code(s): D 50.8 - Other iron deficiency anemias Code(s): D50.9 - Iron deficiency anemia, unspecified Status: Acute (10) Gastroesophageal reflux disease: Qualifiers: Esophagitis presence: esophagitis presence not specified Qualified Code(s): K21.9 - Gastro-esophageal reflux disease without esophagitis Code(s): K21.9 - Gastro-esophageal reflux disease without esophagitis Status: Acute (11) Left sided abdominal pain: Code(s): R10.9 - Unspecified abdominal pain Status: Acute (12) Abnormal digestive system diagnostic imaging: Code(s): R93.3 - Abnormal findings on diagnostic imaging of other parts of digestive tract Status: Acute Plan 1) Dysphagia/nausea / early satiety/ appetite loss /GERD/left sided abdominal pain : S/P CCX. Per patient she had a normal EGD with Dr. Padilla about 5 yea rs ago, results not available. Patient never followed up with GI after EGD for further workup. Per patient she takes Prilosec 20 mg daily and reflux is controlled but if she misses a dose symptoms quickly return. Admits to intermittent dysphagia with solid foods over the past few months. Denies any difficulty swallowing liquids or pills. She complains of left-sided abdominal pain that she describes as a constant ache . This pain has been occurring a few times weekly for the past few years and does not seem to have a direct correlation with food intake or bowel movements. Her nausea is typically worse after meals but she denie
--- NOTE | 2024-02-24 09:45 | WPDGICN ---
Assessment and Plan Assessment and plan (1) Dysphagia: Qualifiers: Dysphagia type: esophageal phase Qualified Code(s): R13.19 - Other dysphagia Code(s): R13.10 - Dysphagia, unspecified Status: Acute (2) Nausea: Code(s): R11.0 - Nausea Status: Acute (3) Early satiety: Code(s): R68.81 - Early satiety Status: Acute (4) Appetite loss: Code(s): R63.0 - Anorexia Status: Acute (5) Constipation: Qualifiers: Constipation type: other constipation type Qualified Code(s): K59.09 - Other constipation Code(s): K59.00 - Constipation, unspecified Status: Acute (6) Diarrhea: Qualifiers: Diarrhea type: unspecified type Qualified Code(s): R19.7 - Diarrhea, unspecified Code(s): R19.7 - Diarrhea, unspecified Status: Acute (7) Hematochezia: Code(s): K92.1 - Melena Status: Acute (8) Elevated liver transaminase level: Code(s): R74.01 - Elevation of levels of liver transaminase levels Status: Acute (9) ABDULAZIZ (iron deficiency anemia): Qualifiers: Iron deficiency anemia type: other iron deficiency Qualified Code(s): D50.8 - Other iron deficiency anemias Code(s): D50.9 - Iron deficiency anemia, unspecified Status: Acute (10) Gastroesophageal reflux disease: Qualifiers: Esophagitis presence: esophagitis presence not specified Qualified Code(s): K21.9 - Gastro-esophageal reflux disease without esophagitis Code(s): K21.9 - Gastro-esophageal reflux disease without esophagitis Status: Acute (11) Left sided abdominal pain: Code(s): R10.9 - Unspecified abdominal pain Status: Acute (12) Abnormal digestive system diagnostic imaging: Code(s): R93.3 - Abnormal findings on diagnostic imaging of other parts of digestive tract Status: Acute Plan 1) Dysphagia/nausea / early satiety/ appetite loss /GERD/left sided abdominal pain : S/P CCX. Per patient she had a normal EGD with Dr. Padilla about 5 years ago, results not available. Patient never followed up with GI after EGD for further workup. Per patient she takes Prilosec 20 mg daily and reflux is controlled but if she misses a dose symptoms quickly return. Admits to intermittent dysphagia with solid foods over the past few months. Denies any difficulty swallowing liquids or pills. She complains of left-sided abdominal pain that she describes as a constant ache . This pain has been occurring a few times weekly for the past few years and does not seem to have a direct correlation with food intake or bowel movements. Her nausea is typically worse after meals but she denies any vomiting. She admits to appetite loss and early satiety but denies any weight loss. No findings on recent imaging to explain symptoms. She denies any NSAID or aspirin use. DDX: Acid versus non acid reflux versus motility disorder versus functional versus peptic ulcer disease Continue BID PPI continue supportive care with pain management and antiemetics discussed outpatient EGD with dilation 2) Constipation/diarrhea /hematochezia /abnormal imaging digestive: Per patient she had a colonoscopy performed at age 20, results unknown. Per patient she has been experiencing GI issues since age 20. She is having a bowel movement every 2 days but states that it varies from the small little to diarrhea and she admits to trace intermittent rectal bleeding noted after bowel movements. She has not tried Imodium but has been using Colace on an as-needed basis with minimal improvement. CT 01/22/2024 showed diffuse small bowel wall thickening, mild jejunal dilation with air-fluid levels and mild small-bowel intussusception. There was no significant arterial stenosis noted at the celiac, superior, or inferior mesenteric arteries to suggest ischemic etiology. Patient states that she had a normal bowel movement yesterday that was
[2024-02-24] MEDS: POTASSIUM CHLORIDE INJ 40 MEQ in SODIUM CHLORIDE 0.9% IV 500 ML 130 MEQ IVPB (10:11)
[2024-02-24] MEDS: methylPREDNISolone SOD SUCC 125 MG VIAL 60 MG IV PUSH (10:11)
[2024-02-24] MEDS: ENOXAPARIN 40 MG/0.4 ML SYRINGE SUB-Q (10:12)
[2024-02-24 11:52] LABS: Alveolar/Arterial O2 Gradient 132.2 mmHg; Base Excess ABG 9.2 mEq/l (+/-2.0); Fractional Inspired Oxygen 39 %; HCO3 ABG 34.5 mEq/l (22.0-26.0); Oxygen Content ABG 11.9 %vol (16.0-22.0); Oxygen Saturation ABG 96.6 % (95.0-100.0); Oxyhemoglobin 95.1 % THb (90.0-100.0); PCO2 ABG 52.1 mmHg (35.0-45.0); PO2 ABG 85.8 mmHg (80.0-100.0); Total Hemoglobin 8.8 g/dL (12.0-18.0); pH ABG 7.439 (7.350-7.450)
[2024-02-24 11:56] LABS: Device HIGH FLOW THERAPY; Modified Allen's Test Pass; Site Drawn RIGHT RADIAL
[2024-02-24 12:55] LABS: Iron 13 ug/dL (37-170)
[2024-02-24 13:05] LABS: Percent Iron Saturation 5 % (20-50)
[2024-02-24 13:13] LABS: Procalcitonin 1.3 ng/mL
[2024-02-24 14:01] LABS: Influenza A QL RT-PCR Negative (Negative); Influenza B QL RT-PCR Negative (Negative); RSV RNA, RT-PCR Negative (Negative); SARS-CoV-2 RNA PCR Negative (Negative)
[2024-02-24 14:36] LABS: MRSA (PCR) NOT DETECTED (NOT DETECTE)
[2024-02-24 17:18] LABS: Potassium 4.7 mmol/L (3.4-5.0)
[2024-02-24] MEDS: POTASSIUM CHLORIDE 20 MEQ PACKET (FOR LIQUID) PO (17:54)
[2024-02-24 19:03] LABS: Appearance Urine Clear (Clear); Bacteria Urine None Seen /hpf; Bilirubin Urine Negative (Negative); Blood Urine Trace (Negative); Color Urine Yellow (Yellow); Glucose Urine UA Negative (Negative); Ketones Urine Negative (Negative); Leukocyte Esterase Ur Negative LEU/UL (Negative); Nitrate Urine Negative (Negative); Non Pathogenic Casts 0-2; Protein Urine Negative (Negative); RBC Urine 0-2 /hpf (0-2); Specific Grav Ur 1.006 (1.001-1.035); Squamous Epithelial Cell Urine None Seen /hpf (Few); Urobilinogen Urine 0.2 mg/dL (<2.0); WBC Urine 0-5 /hpf (0-3)
[2024-02-24 19:18] LABS: Add Urine Microscopic? YES
[2024-02-24] MEDS: CYCLOBENZAPRINE HCL 10 MG TABLET PO (20:32)
[2024-02-24] MEDS: traMADol HCL (*CRX) 25 MG TABLET PO (23:21)
[2024-02-25] VITALS (29 sets, daily range): BP systolic 116–145; BP diastolic 61–72; PULSE 62–100; RESP 16–26; TEMP 36.2–37.1; O2SAT 93–100
[2024-02-25] MEDS: metroNIDAZOLE 250MG/ISO 50 ML 250 MG/50 ML BAG 50 MG IVPB ×2 (02:04→08:35)
[2024-02-25] MEDS: LEVALBUTEROL NEB 1.25 MG/3 ML INHALATION ×4 (02:19→21:39)
[2024-02-25] MEDS: IPRATROPIUM BR 0.02% INH SOLN 0.5 MG/2.5 ML VIAL INHALATION ×4 (02:19→21:40)
[2024-02-25 04:32] LABS: Hematocrit 27.9 % (37.0-47.0); Hemoglobin 8.5 g/dL (12.0-15.0); Mean Corpuscular HGB Conc 30.5 g/dl (32-36); Mean Corpuscular Hemoglobin 28.3 pg (26-34); Mean Platelet Volume 8.9 fl (7.4-10.4); Platelet Count Result 330 k/mm3 (150-375); Red Cell Distribution Width 15.9 % (11.5-14.5)
[2024-02-25 04:47] LABS: Anion Gap 2 mmol/L (4-12); Blood Urea Nitrogen 11 mg/dL (7-17); Calcium 8.7 mg/dL (8.4-10.2); Carbon Dioxide 38 mmol/L (22-30); Chloride 98 mmol/L (98-107); Estimated CRCL calculation 134 ml/min; Estimated Glomerular Filt Rate > 60; Glucose 85 mg/dL (65-110); Potassium 4.4 mmol/L (3.4-5.0); Sodium 138 mmol/L (137-145)
[2024-02-25 05:10] LABS: Band Neutrophils Percent 2 % (0-6); Eosinophils Absolute Manual 0.36 K/mm3 (0.02-0.50); Eosinophils Percent Manual 2 % (0-4); Lymphocytes Absolute Manual 3.06 K/mm3 (1.1-4.5); Monocytes Absolute Manual 0.18 K/mm3 (0.1-0.90); Monocytes Percent Manual 1 % (3-9); Neutrophils Percent Manual 78 % (46-73); Platelet Estimate Adequate (Adequate); Schistocytes None Seen; Total Cells Counted 100
[2024-02-25 05:11] LABS: Anisocytosis 1+; Hypochromasia 1+
[2024-02-25 05:21] LABS: Procalcitonin 0.9 ng/mL
[2024-02-25 05:29] LABS: CRP 22.1 mg/dL (<1.0)
--- NOTE | 2024-02-25 07:39 | PM.IMPN ---
Progress Note: A&P Assessment and Plan (1) Acute hypoxic respiratory failure: Code(s): J96.01 - Acute respiratory failure with hypoxia Status: Acute (2) Pneumonia: Qualifiers: Laterality: bilateral Lung location: unspecified part of lung Pneumonia type: due to unspecified organism Qualified Code(s): J18.9 - Pneumonia, unspecified organism Code(s): J18.9 - Pneumonia, unspecified organism Status: Acute (3) Gastroesophageal reflux disease: Qualifiers: Esophagitis presence: esophagitis presence not specified Qualified Code(s): K21.9 - Gastro-esophageal reflux disease without esophagitis Code(s): K21.9 - Gastro-esophageal reflux disease without esophagitis Status: Acute (4) Chronic obstructive pulmonary disease: Qualifiers: COPD type: unspecified COPD Qualified Code(s): J44.9 - Chronic obstructive pulmonary disease, unspecified Code(s): J44.9 - Chronic obstructive pulmonary disease, unspecified Status: Acute (5) Acute hypokalemia: Code(s): E87.6 - Hypokalemia Status: Acute (6) Normocytic anemia: Code(s): D64.9 - Anemia, unspecified Status: Acute Plan Acute respiratory failure with hypoxemia,, multifocal pneumonia Denies history of O2 therapy at home Patient also denies history of COPD CT scan suggest bilateral pneumonia, patient leukocytosis 18,000, Patient is azithromycin ceftriaxone and Flagyl IV to cover community-acquired pneumonia and possible aspiration pneumonia Pending urine Legionella antigen, urine pneumococcal antigen and mycoplasma PCR. No definite diagnosis of COPD, patient stopped smoking about 3 years Upon arrival The 1st ABG did not show CO2 retention, 2nd ABG showed mild CO2 retention possible due to respiratory muscle fatigue Continue scheduled nebulizer treatments with Xopenex and Atrovent. Consult library monitor for evaluation treatment, Management per library monitor Patient denies dysphagia, abdomen pain, nausea vomiting diarrhea, patient had a bowel movement Trim Technician consulted GI, GI plans EGD and colonoscopy probably in 3-4 weeks after current status improves, also ordered liver work up. Acute heart failure/or fluid overload Unknown history of cardiac issues But patient has elevated BNP, CT scan shows pulmonary edema Possible acute heart failure resulting from sepsis and pneumonia Provided Lasix 80 mg IV push once morning 40 mg IV push in the, patient made significant amount of urine on Patient felt dyspnea improving after she received IV Lasix 02/22 echocardiogram: Normal EF 02/24 Hypokalemia Received potassium chloride 80 mg Repeated BMP, Corrected Chronic anemia Hemoglobin close to baseline patient does have a low iron and low% saturation Continue iron supplement with iron polysaccharide 150 mg b.i.d. p.o. Follow-up stool guaiac, iron panel, ferritin level, Sepsis Patient received fluid resuscitation Patient has obvious fluid overload Hold normal saline IV now Follow-up input output No bacteriuria growth from urine culture and blood culture GERD Continue Protonix 40 mg daily p.o. Patient denies abdomen pain, nausea vomiting, patient had bowel movement yesterday continue home anxiety and depression medications. Full code Subjective Date/time seen: 02/25/24 07:39 Interval history: I saw examined the patient today, patient felt better subjectively, patient has severe cough with scant phlegm. Patient is afebrile, blood pressure stable, patient still on high-flow oxygen, labs reviewed, leukocytosis persists, hemoglobin stable. Chest x-ray today showed stable diffuse pulmonary disease, echocardiogram report left ventricular systolic function is normal, estimated at 60-65%. Exam Narrative: GENERAL: Ill-appearing, in no acute distress. Well-nourished. - EYES: EOMI. Anicteric. - HENT: Moist mucous membranes. - LUNGS: Crackles right lung
[2024-02-25] MEDS: POTASSIUM CHLORIDE 20 MEQ PACKET (FOR LIQUID) PO ×2 (08:15→16:41)
[2024-02-25] MEDS: POLYSACCHARIDE IRON COMPLEX 150 MG CAPSULE PO ×2 (08:15→16:41)
[2024-02-25] MEDS: GABAPENTIN 300 MG CAPSULE PO ×3 (08:15→16:41)
[2024-02-25] MEDS: PANTOPRAZOLE 40 MG TABLET PO ×2 (08:15→21:13)
[2024-02-25] MEDS: ENOXAPARIN 40 MG/0.4 ML SYRINGE SUB-Q (08:15)
[2024-02-25] MEDS: guaiFENesin 600 MG/DEXTROMETHORPHAN 30 MG SR TAB 12 HR 1 TAB PO ×2 (08:15→21:13)
[2024-02-25] MEDS: DOCUSATE SODIUM 100 MG CAPSULE PO (08:15)
[2024-02-25] MEDS: buPROPion HCL XL (24 HR) 150 MG TABCR PO (08:15)
[2024-02-25] MEDS: CITALOPRAM HYDROBROMIDE 20 MG TABLET 40 MG PO (08:15)
[2024-02-25] MEDS: methylPREDNISolone SOD SUCC 125 MG VIAL 60 MG IV PUSH (08:16)
[2024-02-25] MEDS: FOLIC ACID 1 MG TABLET PO (08:17)
[2024-02-25] MEDS: ACETAMINOPHEN 325 MG TABLET 650 MG PO (08:21)
--- NOTE | 2024-02-25 08:24 | PM.PNPUL ---
Progress Note: A&P Assessment and Plan (1) Acute hypoxic respiratory failure: Code(s): J96.01 - Acute respiratory failure with hypoxia Status: Acute Assessment and Plan: A 48-year-old female presented with acute respiratory failure, bilateral infiltrates predominantly characterized by ground-glass opacities, a low-grade fever, and a dry cough without sputum production. Given her known history of dysphagia and a possible aspiration event approximately one week ago, these findings suggest severe aspiration pneumonitis as the most likely cause. The patient has been treated with Flagyl for pneumonia and has been on high-flow nasal cannula. Her respiratory status has remained essentially unchanged over the past 36 hours. She was started empirically on Solu-Medrol [address] images now available; to my review they show widespread ground-glass opacities in both lungs, slightly worse in the right lung, with no evidence of consolidation or pleural effusions. Respiratory status, gas exchange essentially unchanged over the last 48 hours. Chest x-ray done today also no improvement. CRP trending downward. Patient is on high-flow nasal cannula 35%. She saturates around 92-96%. Solu-Medrol 60 mg IV were given this a.m.. Will continue to monitor the respiratory status. (2) Pneumonia: Qualifiers: Laterality: bilateral Lung location: unspecified part of lung Pneumonia type: due to unspecified organism Qualified Code(s): J18.9 - Pneumonia, unspecified organism Code(s): J18.9 - Pneumonia, unspecified organism Status: Acute (3) Gastroesophageal reflux disease: Qualifiers: Esophagitis presence: esophagitis presence not specified Qualified Code(s): K21.9 - Gastro-esophageal reflux disease without esophagitis Code(s): K21.9 - Gastro-esophageal reflux disease without esophagitis Status: Acute (4) Smoker: Code(s): F17.200 - Nicotine dependence, unspecified, uncomplicated Status: Acute Subjective Date/time seen: 02/25/24 08:24 Interval history: Patient had a coughing spell while eating breakfast earlier today. Has been no change in her shortness of breath. She remains on high-flow nasal cannula currently 35%. Cough dry. No fever no chills. No other respiratory complaints. Review of Systems Review of Systems: All systems reviewed & are unremarkable except as noted in HPI and below (HPI and below) Exam Narrative: GENERAL APPEARANCE: Well developed, well nourished, alert and cooperative, and appears to be in no acute distress while on supplemental oxygen via high-flow nasal cannula SKIN: Inspection of the skin reveals no rashes, ulcerations or petechiae. HEENT: Sclerae anicteric and conjunctivae pink and moist. Extraocular movements were intact and pupils were equal, round, and reactive to light. The oral mucosa, hard and soft palate, tongue and posterior pharynx were normal. NECK: Supple. There was no thyroid enlargement, and no tenderness, or masses were felt. CHEST: Normal AP diameter and normal contour without any kyphoscoliosis. LUNGS: Rare crackles right base posteriorly otherwise no wheezing CARDIAC: There was a regular rate and rhythm without any murmurs, gallops, rubs. ABDOMEN: Soft and nontender with normal bowel sounds. There was no organomegaly. LYMPH NODES: No lymphadenopathy was appreciated in the neck. EXTREMITIES: No cyanosis, clubbing or edema. NEUROLOGIC: Alert and oriented x 3. Normal affect. Objective Data Vital Signs Vital Signs: Vital Signs - 24 hr 02/24/24 08:43 02/24/24 08:43 02/24/24 08:51 Temperature Pulse Rate 100 98 Respiratory Rate 20 20 Blood Pressure Pulse Oximetry 95 Oxygen Delivery High Flow Therapy with Na Oxygen Flow Rate 40 Fraction of Inspired Oxygen 39 02/24/24 10:00 02/24/24 11:16 02/24/24 12:00 Temperature 36.9 C Pulse Rate 87 90 96 Respiratory Rate 18 24 H Blood
[2024-02-25] MEDS: AMPICILLIN SULB 3 GM/NS 100 ML 3 GM/100 ML VIAL IVPB ×3 (10:32→21:13)
[2024-02-25 12:58] LABS: Alpha-1-Antitrypsin, QN 285 mg/dL (83-199); Ceruloplasmin 34 mg/dL (14-48)
[2024-02-25 13:00] LABS: IFOB Positive Control Positive; Immunochemical Fecal Occult Bl Positive (N)
[2024-02-25] MEDS: guaiFENesin/DEXTROMETHORPHAN 10 ML UDC PO (13:07)
[2024-02-25] MEDS: HYDROcodone/acetaminophen (*CRX) 5-325 MG TABLET 1 TAB PO ×2 (13:07→21:13)
[2024-02-25] MEDS: metroNIDAZOLE 500 MG TABLET PO ×2 (15:29→21:13)
--- NOTE | 2024-02-25 16:01 | WPDGIPROGNO ---
Progress Note: A&P Assessment and Plan (1) ABDULAZIZ (iron deficiency anemia): Qualifiers: Iron deficiency anemia type: other iron deficiency Qualified Code(s): D50.8 - Other iron deficiency anemias Code(s): D50.9 - Iron deficiency anemia, unspecified Status: Acute Assessment and Plan: no overt gib will do egd and colonoscopy in 3-4 weeks as outpatient once clinically better and pneumonia fully treated (2) Dysphagia: Qualifiers: Dysphagia type: esophageal phase Qualified Code(s): R13.19 - Other dysphagia Code(s): R13.10 - Dysphagia, unspecified Status: Acute Assessment and Plan: she is eating but sometimes with dysphagia egd as outpatient (3) Sepsis: Code(s): A41.9 - Sepsis, unspecified organism Status: Acute Assessment and Plan: resolved (4) Acute hypoxic respiratory failure: Code(s): J96.01 - Acute respiratory failure with hypoxia Status: Acute Assessment and Plan: better, requiring less oxygen pulmonary on board (5) Pneumonia: Qualifiers: Laterality: bilateral Lung location: unspecified part of lung Pneumonia type: due to unspecified organism Qualified Code(s): J18.9 - Pneumonia, unspecified organism Code(s): J18.9 - Pneumonia, unspecified organism Status: Acute (6) Gastroesophageal reflux disease: Qualifiers: Esophagitis presence: esophagitis presence not specified Qualified Code(s): K21.9 - Gastro-esophageal reflux disease without esophagitis Code(s): K21.9 - Gastro-esophageal reflux disease without esophagitis Status: Acute (7) Elevated liver transaminase level: Code(s): R74.01 - Elevation of levels of liver transaminase levels Status: Acute Assessment and Plan: mildly elevated work up in progress follow-up in office Subjective Date/time seen: 02/25/24 16:01 Interval history: she is breathing better and requiring less oxygen, she is eating. Review of Systems Review of Systems: All systems reviewed & are unremarkable except as noted in HPI and below Exam Const: General: comfortable and no acute distress HENMT: Other: using NC oxygen Eyes: General: appearance normal, both eyes and all related structures Neck: Neck: supple Resp: Auscultation: crackles and no wheezes Cardio: Rate: regular rate Rhythm: regular rhythm GI: Inspection: non-distended GI Palp: Yes Soft to palpation and No Tenderness to palpation present (GI) Auscultation: normal bowel sounds Skin: General skin exam: normal color Neuro: Speech: normal speech Motor exam (neuro): 5/5 motor strength present throughout Extrem: General: normal to inspection Psych: Mental Status: mental status grossly normal Objective Data Vital Signs Vital Signs: Vital Signs - 24 hr 02/24/24 18:00 02/24/24 19:33 02/24/24 20:13 Temperature 97.7 F Pulse Rate 76 88 Respiratory Rate 18 Blood Pressure 151/76 H Pulse Oximetry 98 95 Oxygen Delivery High Flow Therapy with Na Oxygen Flow Rate 40 Fraction of Inspired Oxygen 40 02/24/24 20:13 02/24/24 20:00 02/24/24 20:00 Temperature Pulse Rate 75 85 85 Respiratory Rate 20 18 Blood Pressure Pulse Oximetry 96 Oxygen Delivery High Flow Therapy with Na Oxygen Flow Rate 40 Fraction of Inspired Oxygen 40 02/24/24 22:00 02/24/24 23:52 02/25/24 00:10 Temperature 98.8 F Pulse Rate 74 72 72 Respiratory Rate 18 20 Blood Pressure 120/68 Pulse Oximetry 97 100 Oxygen Delivery High Flow Therapy with Na Oxygen Flow Rate 40 Fraction of Inspired Oxygen 40 02/25/24 00:00 02/25/24 02:00 02/25/24 02:19 Temperature Pulse Rate 70 75 85 Respiratory Rate 20 Blood Pressure Pulse Oximetry Oxygen Delivery Oxygen Flow Rate Fraction of Inspired Oxygen 02/25/24 02:20 02/25/24 02:32 02/25/24 03:47 Temperature 97.6 F Pulse Rate 70 Respiratory
--- NOTE | 2024-02-25 18:14 | PC.NURSE ---
This patient, Anat Phelan, was transferred to [[facility] ] on 02/25/24 at 1814. Personal belongings sent with patient. Report given to [DORIAN Phelps @ 1810 ]. Appropriate documentation sent with patient.
--- NOTE | 2024-02-25 18:36 | PC.NURSE ---
This patient, Anat Phelan, was received from [id number] on 02/25/24 at 1837. Patient/family oriented to unit policies and routines
[2024-02-25] MEDS: clonazePAM (*CRX) 0.5 MG TABLET PO (21:13)
[2024-02-26] VITALS (19 sets, daily range): BP systolic 120–128; BP diastolic 56–70; PULSE 75–92; RESP 16–20; TEMP 36.1–37.1; O2SAT 92–98
[2024-02-26] MEDS: AMPICILLIN SULB 3 GM/NS 100 ML 3 GM/100 ML VIAL IVPB ×4 (02:38→21:13)
[2024-02-26] MEDS: LEVALBUTEROL NEB 1.25 MG/3 ML INHALATION ×4 (02:40→20:19)
[2024-02-26] MEDS: IPRATROPIUM BR 0.02% INH SOLN 0.5 MG/2.5 ML VIAL INHALATION ×4 (02:40→20:19)
[2024-02-26] MEDS: metroNIDAZOLE 500 MG TABLET PO ×3 (05:10→21:12)
[2024-02-26 05:48] LABS: CRP 11.7 mg/dL (<1.0)
[2024-02-26 05:55] LABS: Procalcitonin 0.5 ng/mL
--- NOTE | 2024-02-26 08:08 | PM.PNPUL ---
Progress Note: A&P Assessment and Plan (1) Acute hypoxic respiratory failure: Code(s): J96.01 - Acute respiratory failure with hypoxia Status: Acute Assessment and Plan: A 48-year-old female presented with acute respiratory failure, bilateral infiltrates characterized predominantly by ground-glass opacities, a low-grade fever, and a dry cough without sputum production. Considering her known history of dysphagia and a potential aspiration event approximately one week ago, these findings suggest severe aspiration pneumonitis as the most likely cause. The patient has been treated with Flagyl and Unasyn for pneumonia and has been on supplemental oxygen. Over the past 72 hours, her clinical condition has remained stable. From a respiratory standpoint, there has been improvement in gas exchange and a downward trend in inflammatory markers such as CRP. Auscultatory findings remain essentially unchanged. There may be a subtle improvement in bilateral lung infiltrates on today's chest x-ray. Plan: Continue with the current management. Discontinue IV steroids. Add nebulized budesonide to her nebulized regimen for the dry cough. Continue to monitor the patient's status. (2) Pneumonia: Qualifiers: Laterality: bilateral Lung location: unspecified part of lung Pneumonia type: due to unspecified organism Qualified Code(s): J18.9 - Pneumonia, unspecified organism Code(s): J18.9 - Pneumonia, unspecified organism Status: Acute (3) Gastroesophageal reflux disease: Qualifiers: Esophagitis presence: esophagitis presence not specified Qualified Code(s): K21.9 - Gastro-esophageal reflux disease without esophagitis Code(s): K21.9 - Gastro-esophageal reflux disease without esophagitis Status: Acute (4) Smoker: Code(s): F17.200 - Nicotine dependence, unspecified, uncomplicated Status: Acute Subjective Date/time seen: 02/26/24 08:08 Interval history: Patient continues to have a cough which is dry as before. Shortness of breath about unchanged. She has no new respiratory symptoms such as fever chills or wheezing. Currently on 4 liters/minute oxygen via nasal cannula, significantly improved since the admission day. Review of Systems Review of Systems: All systems reviewed & are unremarkable except as noted in HPI and below (HPI and below) Exam Narrative: GENERAL APPEARANCE: Well developed, well nourished, alert and cooperative, and appears to be in no acute distress while on supplemental oxygen via high-flow nasal cannula SKIN: Inspection of the skin reveals no rashes, ulcerations or petechiae. HEENT: Sclerae anicteric and conjunctivae pink and moist. Extraocular movements were intact and pupils were equal, round, and reactive to light. The oral mucosa, hard and soft palate, tongue and posterior pharynx were normal. NECK: Supple. There was no thyroid enlargement, and no tenderness, or masses were felt. CHEST: Normal AP diameter and normal contour without any kyphoscoliosis. LUNGS: crackles mostly in right lung posteriorly, no wheezing CARDIAC: There was a regular rate and rhythm without any murmurs, gallops, rubs. ABDOMEN: Soft and nontender with normal bowel sounds. There was no organomegaly. LYMPH NODES: No lymphadenopathy was appreciated in the neck. EXTREMITIES: No cyanosis, clubbing or edema. NEUROLOGIC: Alert and oriented x 3. Normal affect. Objective Data Vital Signs Vital Signs: Vital Signs - 24 hr 02/25/24 08:49 02/25/24 09:00 02/25/24 10:00 Temperature Pulse Rate 100 Respiratory Rate Blood Pressure Pulse Oximetry 97 99 Oxygen Delivery High Flow Nasal Cannula Nasal Cannula Oxygen Flow Rate 6 6 02/25/24 13:15 02/25/24 10:35 02/25/24 13:26 Temperature Pulse Rate 85 Respiratory Rate 18 Blood Pressure Pulse Oximetry 100 97 Oxygen Delivery Nasal Cannula High Flow Nasal Cannula Oxygen Flow Rate 4 5 02/25/24 12:
[2024-02-26] MEDS: guaiFENesin 600 MG/DEXTROMETHORPHAN 30 MG SR TAB 12 HR 1 TAB PO ×2 (08:17→21:13)
[2024-02-26] MEDS: ENOXAPARIN 40 MG/0.4 ML SYRINGE SUB-Q (08:17)
[2024-02-26] MEDS: POTASSIUM CHLORIDE 20 MEQ PACKET (FOR LIQUID) PO ×2 (08:17→16:49)
[2024-02-26] MEDS: DOCUSATE SODIUM 100 MG CAPSULE PO (08:18)
[2024-02-26] MEDS: GABAPENTIN 300 MG CAPSULE PO ×3 (08:18→16:49)
[2024-02-26] MEDS: POLYSACCHARIDE IRON COMPLEX 150 MG CAPSULE PO ×2 (08:18→16:49)
[2024-02-26] MEDS: CITALOPRAM HYDROBROMIDE 20 MG TABLET 40 MG PO (08:18)
[2024-02-26] MEDS: PANTOPRAZOLE 40 MG TABLET PO ×2 (08:18→21:13)
[2024-02-26] MEDS: buPROPion HCL XL (24 HR) 150 MG TABCR PO (08:18)
[2024-02-26] MEDS: FOLIC ACID 1 MG TABLET PO (08:18)
[2024-02-26] MEDS: HYDROcodone/acetaminophen (*CRX) 5-325 MG TABLET 1 TAB PO ×3 (08:24→21:13)
[2024-02-26] MEDS: guaiFENesin/DEXTROMETHORPHAN 10 ML UDC PO ×2 (08:24→13:07)
--- NOTE | 2024-02-26 09:16 | PM.IMPN ---
Progress Note: A&P Assessment and Plan (1) Acute hypoxic respiratory failure: Code(s): J96.01 - Acute respiratory failure with hypoxia Status: Acute (2) Pneumonia: Qualifiers: Laterality: bilateral Lung location: unspecified part of lung Pneumonia type: due to unspecified organism Qualified Code(s): J18.9 - Pneumonia, unspecified organism Code(s): J18.9 - Pneumonia, unspecified organism Status: Acute (3) Gastroesophageal reflux disease: Qualifiers: Esophagitis presence: esophagitis presence not specified Qualified Code(s): K21.9 - Gastro-esophageal reflux disease without esophagitis Code(s): K21.9 - Gastro-esophageal reflux disease without esophagitis Status: Acute (4) Chronic obstructive pulmonary disease: Qualifiers: COPD type: unspecified COPD Qualified Code(s): J44.9 - Chronic obstructive pulmonary disease, unspecified Code(s): J44.9 - Chronic obstructive pulmonary disease, unspecified Status: Acute (5) Acute hypokalemia: Code(s): E87.6 - Hypokalemia Status: Acute (6) Normocytic anemia: Code(s): D64.9 - Anemia, unspecified Status: Acute Plan Acute respiratory failure with hypoxemia,, multifocal pneumonia Denies history of O2 therapy at home Patient also denies history of COPD CT scan suggest bilateral pneumonia, patient leukocytosis 18,000, Patient is azithromycin ceftriaxone and Flagyl IV to cover community-acquired pneumonia and possible aspiration pneumonia Pending urine Legionella antigen, urine pneumococcal antigen and mycoplasma PCR. No definite diagnosis of COPD, patient stopped smoking about 3 years Upon arrival The 1st ABG did not show CO2 retention, 2nd ABG showed mild CO2 retention possible due to respiratory muscle fatigue Continue scheduled nebulizer treatments with Xopenex and Atrovent. Consult circuit court judge for evaluation treatment, Management per circuit court judge Patient condition continued to improve, patient is on 3 L oxygen via nasal cannular Percocet today is trending down, 0 5 today Patient denies dysphagia, abdomen pain, nausea vomiting diarrhea, patient had a bowel movement Comparison Shopper consulted GI, GI plans EGD and colonoscopy probably in 3-4 weeks after current status improves, also ordered liver work up. Acute heart failure/or fluid overload Unknown history of cardiac issues But patient has elevated BNP, CT scan shows pulmonary edema Possible acute heart failure resulting from sepsis and pneumonia Provided Lasix 80 mg IV push once morning 40 mg IV push in the, patient made significant amount of urine on Patient felt dyspnea improving after she received IV Lasix 02/22 echocardiogram: Normal EF 02/24 Euvolemia Hypokalemia Received potassium chloride 80 mg Repeated BMP, Corrected Chronic anemia Hemoglobin close to baseline patient does have a low iron and low% saturation Continue iron supplement with iron polysaccharide 150 mg b.i.d. p.o. Follow-up stool guaiac, iron panel,iron low Stool guaiac up is positive,s/w Brown is a 40 mg daily IV, s/w ferrous sulfate 325 mg b.i.d. p.o. GI is on board, f/u recommendation Sepsis Patient received fluid resuscitation Patient has obvious fluid overload Hold normal saline IV now Follow-up input output No bacteriuria growth from urine culture and blood culture GERD Continue Protonix 40 mg daily p.o. Patient denies abdomen pain, nausea vomiting, patient had bowel movement yesterday continue home anxiety and depression medications. Full code Subjective Date/time seen: 02/26/24 09:16 Interval history: I saw examined the patient today, patient feels better, condition continue to improve, patient is on 3 L oxygen via nasal cannular. Patient is afebrile, blood pressure stable, Exam Narrative: GENERAL: Ill-appearing, in no acute distress. Well-nourished. - EYES: EOMI. Anicteric. - HENT: Moist muco
[2024-02-26 16:51] LABS: Hematocrit 30.5 % (37.0-47.0); Hemoglobin 8.3 g/dL (12.0-15.0); Mean Corpuscular HGB Conc 27.2 g/dl (32-36); Mean Corpuscular Hemoglobin 27.7 pg (26-34); Mean Corpuscular Volume 101.7 fl (80-100); Mean Platelet Volume 8.8 fl (7.4-10.4); Platelet Count Result 367 k/mm3 (150-375); Red Cell Distribution Width 16.6 % (11.5-14.5); White Blood Count 17.3 K/mm3 (4.5-10.0)
[2024-02-26] MEDS: PANTOPRAZOLE SODIUM IV 40 MG VIAL IV PUSH (16:53)
[2024-02-26 17:02] LABS: Anion Gap 5 mmol/L (4-12); Blood Urea Nitrogen 10 mg/dL (7-17); Calcium 8.3 mg/dL (8.4-10.2); Carbon Dioxide 33 mmol/L (22-30); Chloride 101 mmol/L (98-107); Estimated CRCL calculation 133 ml/min; Estimated Glomerular Filt Rate > 60; Glucose 94 mg/dL (65-110); Potassium 3.8 mmol/L (3.4-5.0); Sodium 139 mmol/L (137-145)
[2024-02-26 17:29] LABS: Band Neutrophils Percent 3 % (0-6); Lymphocytes Absolute Manual 4.49 K/mm3 (1.1-4.5); Neutrophils Percent Manual 71 % (46-73); Platelet Estimate Adequate (Adequate); Total Cells Counted 100
[2024-02-26 17:30] LABS: Anisocytosis 2+; Hypochromasia 1+; Schistocytes None Seen
[2024-02-26 17:35] LABS: Procalcitonin 0.3 ng/mL
[2024-02-26 18:58] LABS: Pneumococcal Antigen Urine NOT DETECTED
[2024-02-26] MEDS: BUDESONIDE RESPULE NEB 0.5 MG/2 ML AMP INHALATION (20:19)
[2024-02-26] MEDS: clonazePAM (*CRX) 0.5 MG TABLET PO (21:13)
[2024-02-27] VITALS (24 sets, daily range): BP systolic 132–135; BP diastolic 60–72; PULSE 82–102; RESP 16–20; TEMP 36.1–36.5; O2SAT 87–97
[2024-02-27] MEDS: LEVALBUTEROL NEB 1.25 MG/3 ML INHALATION ×4 (02:05→20:50)
[2024-02-27] MEDS: IPRATROPIUM BR 0.02% INH SOLN 0.5 MG/2.5 ML VIAL INHALATION ×4 (02:05→20:50)
[2024-02-27] MEDS: AMPICILLIN SULB 3 GM/NS 100 ML 3 GM/100 ML VIAL IVPB ×4 (02:15→20:02)
[2024-02-27 03:03] LABS: Immunoglobulin A 57 mg/dL (47-310); TTG IGA AB <1.0 U/mL
[2024-02-27] MEDS: metroNIDAZOLE 500 MG TABLET PO ×3 (05:06→21:13)
[2024-02-27 05:35] LABS: Hematocrit 29.3 % (37.0-47.0); Hemoglobin 8.7 g/dL (12.0-15.0); Mean Corpuscular HGB Conc 29.7 g/dl (32-36); Mean Corpuscular Hemoglobin 27.4 pg (26-34); Mean Corpuscular Volume 92.4 fl (80-100); Platelet Count Result 445 k/mm3 (150-375); Red Blood Count 3.17 M/mm3 (4.2-5.4); Red Cell Distribution Width 16.2 % (11.5-14.5)
[2024-02-27 05:54] LABS: CRP 7.3 mg/dL (<1.0)
[2024-02-27 06:28] LABS: Band Neutrophils Percent 1 % (0-6); Basophils Absolute Manual 0.23 K/mm3 (0.0-0.1); Basophils Percent Manual 1 % (0-1); Eosinophils Absolute Manual 0.92 K/mm3 (0.02-0.50); Eosinophils Percent Manual 4 % (0-4); Lymphocytes Absolute Manual 3.22 K/mm3 (1.1-4.5); Metamyelocytes Percent 4 %; Monocytes Absolute Manual 0.69 K/mm3 (0.1-0.90); Monocytes Percent Manual 3 % (3-9); Myelocytes Percent 1 %; Neutrophils Absolute Manual 16.79 K/mm3 (1.7-7.2); Neutrophils Percent Manual 72 % (46-73); Total Cells Counted 100
[2024-02-27 06:29] LABS: Platelet Estimate Increased (Adequate); Schistocytes None Seen
[2024-02-27 06:31] LABS: Anisocytosis 1+; Hypochromasia 1+
[2024-02-27] MEDS: BUDESONIDE RESPULE NEB 0.5 MG/2 ML AMP INHALATION ×2 (07:32→20:50)
[2024-02-27] MEDS: PANTOPRAZOLE 40 MG TABLET PO ×2 (08:01→21:13)
[2024-02-27] MEDS: FOLIC ACID 1 MG TABLET PO (08:01)
[2024-02-27] MEDS: ENOXAPARIN 40 MG/0.4 ML SYRINGE SUB-Q (08:01)
[2024-02-27] MEDS: POTASSIUM CHLORIDE 20 MEQ PACKET (FOR LIQUID) PO ×2 (08:01→16:35)
[2024-02-27] MEDS: guaiFENesin 600 MG/DEXTROMETHORPHAN 30 MG SR TAB 12 HR 1 TAB PO ×2 (08:01→21:13)
[2024-02-27] MEDS: buPROPion HCL XL (24 HR) 150 MG TABCR PO (08:01)
[2024-02-27] MEDS: GABAPENTIN 300 MG CAPSULE PO ×3 (08:01→16:35)
[2024-02-27] MEDS: PANTOPRAZOLE SODIUM IV 40 MG VIAL IV PUSH (08:01)
[2024-02-27] MEDS: POLYSACCHARIDE IRON COMPLEX 150 MG CAPSULE PO ×2 (08:01→16:35)
[2024-02-27] MEDS: DOCUSATE SODIUM 100 MG CAPSULE PO (08:01)
[2024-02-27] MEDS: CITALOPRAM HYDROBROMIDE 20 MG TABLET 40 MG PO (08:01)
[2024-02-27] MEDS: guaiFENesin/DEXTROMETHORPHAN 10 ML UDC PO (08:11)
[2024-02-27] MEDS: HYDROcodone/acetaminophen (*CRX) 5-325 MG TABLET 1 TAB PO ×3 (08:11→20:01)
--- NOTE | 2024-02-27 08:35 | PM.PNPUL ---
Progress Note: A&P Assessment and Plan (1) Acute hypoxic respiratory failure: Code(s): J96.01 - Acute respiratory failure with hypoxia Status: Acute Assessment and Plan: A 48-year-old female presented 02/22/24 with acute respiratory failure, bilateral infiltrates characterized predominantly by ground-glass opacities, a low-grade fever, and a dry cough without sputum production. Considering her known history of dysphagia and a potential aspiration event approximately one week ago, these findings suggest severe aspiration pneumonitis as the most likely cause. Of note, patient with no alveolar interstitial infiltrates on CT scan of the chest from 01/22/2024. Patient quit smoking tobacco in 08/2021 and that did do vaping last use was 1 year ago. 02/22/2024: Blood cultures negative x2 VASQUEZ screen panel negative on 01/03/2021, 03/24/2021, 12/30/2023 and 02/24/2024. COVID, influenza, RSV RT PCR negative on 02/22/2024 and 02/24/2024. 02/24/2024: Sputum growth of normal irma. Patient was on high-flow nasal cannula oxygen from 02/23/2024 at 4:00 a.m. (40 L and 40%) to 02/25/2024 at 8:00 a.m (35 L and 35%) 02/25/24: 10:00 patient was on 5 L saturation 97%. 02/26/24:The patient has been treated with Flagyl and Unasyn for pneumonia and has been on supplemental oxygen. Over the past 72 hours, her clinical condition has remained stable. From a respiratory standpoint, there has been improvement in gas exchange and a downward trend in inflammatory markers such as CRP. Auscultatory findings remain essentially unchanged. There may be a subtle improvement in bilateral lung infiltrates on today's chest x-ray. Patient is on 4 L with saturations 94% Plan: Continue with the current management. Discontinue IV steroids. Add nebulized budesonide to her nebulized regimen for the dry cough. Continue to monitor the patient's status. 02/27/24: The patient tells me she has a little worse than yesterday. She describes chest tightness, pleuritic chest pain, hot feelings and dyspnea on exertion with activity. overall she has improved since admission and states that she is 30% back to normal. White blood cell count is 23.0, creatinine 0.5, CRP is decreased from 11.7 to 7.3. Currently she is on 3 L nasal cannula the saturations 93%. I decreased her to 2 L nasal cannula and after 14 minutes her saturations were 91%. Plan: patient is status post ceftriaxone and azithromycin on 02/21, Flagyl started 02/22, day 5. Unasyn since 02/24, day 3. patient received Solu-Medrol 125 on 02/22/24, 60 mg on 02/23 and 60 mg on 02/24. budesonide nebulizer started on 02/25, Continue ipratropium and levalbuterol nebulizers Q 6 hours. Oxygenation has improved. I will send HIV screen. Respiratory pathogen panel for 23 respiratory pathogens is pending from 02/24/2024. I will send additional serologies for autoimmune disease and connective tissue disorder. Chest x-ray in the morning. Goal saturation 90-94% and wean oxygen accordingly. Will follow with you. Subjective Date/time seen: 02/27/24 08:35 Interval history: 02/22/2023: This is a new pulmonary consult for hypoxic respiratory failure This 48-year-old female presented with a few days' history of progressively worsening shortness of breath, cough, and a low-grade fever. She was in her usual state of health until approximately 6 days ago when she began vomiting while in bed. The patient believes she aspirated, as she experienced a coughing spell immediately afterward. The following day, she developed a dry cough, which was subsequently accompanied by progressively increasing shortness of breath and a low-grade fever of 101?F. She did not report chest pain, hemoptysis, or wheezing. In the emergency room, she was found to be hypoxemic, and a chest CT revealed widespread ground-glass opacities and crazy paving throughout the lungs. The actual CT images are not available for review. She also had leukocytosis and has been tr
[2024-02-27 09:44] LABS: Procalcitonin 0.2 ng/mL
[2024-02-27 10:05] LABS: HIV 1/2 Ab P24 Ag Result Negative (Negative)
--- NOTE | 2024-02-27 15:22 | PM.IMPN ---
Progress Note: A&P Assessment and Plan (1) Acute hypoxic respiratory failure: Code(s): J96.01 - Acute respiratory failure with hypoxia Status: Acute (2) Pneumonia: Qualifiers: Laterality: bilateral Lung location: unspecified part of lung Pneumonia type: due to unspecified organism Qualified Code(s): J18.9 - Pneumonia, unspecified organism Code(s): J18.9 - Pneumonia, unspecified organism Status: Acute (3) Gastroesophageal reflux disease: Qualifiers: Esophagitis presence: esophagitis presence not specified Qualified Code(s): K21.9 - Gastro-esophageal reflux disease without esophagitis Code(s): K21.9 - Gastro-esophageal reflux disease without esophagitis Status: Acute (4) Chronic obstructive pulmonary disease: Qualifiers: COPD type: unspecified COPD Qualified Code(s): J44.9 - Chronic obstructive pulmonary disease, unspecified Code(s): J44.9 - Chronic obstructive pulmonary disease, unspecified Status: Acute (5) Acute hypokalemia: Code(s): E87.6 - Hypokalemia Status: Acute (6) Normocytic anemia: Code(s): D64.9 - Anemia, unspecified Status: Acute Plan Acute respiratory failure with hypoxemia,, multifocal pneumonia Denies history of O2 therapy at home Patient also denies history of COPD CT scan suggest bilateral pneumonia, patient leukocytosis 18,000, Patient is azithromycin ceftriaxone and Flagyl IV to cover community-acquired pneumonia and possible aspiration pneumonia Pending urine Legionella antigen, urine pneumococcal antigen and mycoplasma PCR. No definite diagnosis of COPD, patient stopped smoking about 3 years Upon arrival The 1st ABG did not show CO2 retention, 2nd ABG showed mild CO2 retention possible due to respiratory muscle fatigue Continue scheduled nebulizer treatments with Xopenex and Atrovent. Consult bias binding cutter for evaluation treatment, patient Dr. 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 Acute heart failure/or fluid overload Unknown history of cardiac issues But patient has elevated BNP, CT scan shows pulmonary edema Possible acute heart failure resulting from sepsis and pneumonia Provided Lasix 80 mg IV push once morning 40 mg IV push in the, patient made significant amount of urine on Patient felt dyspnea improving after she received IV Lasix 02/22 echocardiogram: Normal EF 02/24 Euvolemia Hypokalemia Received potassium chloride 80 mg Repeated BMP, Corrected Chronic anemia Hemoglobin close to baseline patient does have a low iron and low% saturation Continue iron supplement with iron polysaccharide 150 mg b.i.d. p.o. Follow-up stool guaiac, iron panel,iron low Stool guaiac up is positive,s/w Brown is a 40 mg daily IV, s/w ferrous sulfate 325 mg b.i.d. p.o. GI is on board, f/u recommendation Sepsis Patient received fluid resuscitation Patient has obvious fluid overload Hold normal saline IV now Follow-up input output No bacteriuria growth from urine culture and blood culture GERD Continue Protonix 40 mg daily p.o. Patient denies abdomen pain, nausea vomiting, patient had bowel movement yesterday continue home anxiety and depression medications. Full code Subjective Date/time seen: 02/27/24 15:22 Interval history: I saw examined the patient today, condition continue to improve, patient has some cough, no significant dyspnea at rest. Patient is on 3 L oxygen via nasal cannular. Patient is afebrile, blood pressure stable, Exam Narrative: GENERAL: Ill-appearing, in no acute distress. Well-nourished. - EYES: EOMI. Anicteric. - HENT: Moist mucous
[2024-02-27 16:38] LABS: Adenovirus DNA Not Detected (Not Detected); Chlamydophila pneumoniae Not Detected (Not Detected); Coronavirus 229E Not Detected (Not Detected); Coronavirus HKU1 Not Detected (Not Detected); Coronavirus NL63 Not Detected (Not Detected); Coronavirus OC43 Not Detected (Not Detected); Human Metapneumovirus Not Detected (Not Detected); Human Parainfluenza Virus 1 Not Detected (Not Detected); Human Parainfluenza Virus 2 Not Detected (Not Detected); Human Parainfluenza Virus 3 Not Detected (Not Detected); Human Parainfluenza Virus 4 Not Detected (Not Detected); Human RSV B Not Detected (Not Detected); Influenza A Not Detected (Not Detected); Influenza B Not Detected (Not Detected); Mycoplasma pneumoniae Not Detected (Not Detected); Rhinovirus/Enterovirus Not Detected (Not Detected)
[2024-02-27] MEDS: clonazePAM (*CRX) 0.5 MG TABLET PO (20:02)
[2024-02-27] MEDS: CYCLOBENZAPRINE HCL 10 MG TABLET PO (21:13)
[2024-02-28] VITALS (21 sets, daily range): BP systolic 113–141; BP diastolic 54–84; PULSE 69–96; RESP 16–30; TEMP 36.1–36.8; O2SAT 93–98
--- NOTE | 2024-02-28 | ECHO_ITS ---
Patient Info Name: Anat Phelan Age: 48 years : 1975 Gender: Female Ht: 65 in Wt: 194 lbs BSA: 2.04 m2 HR: 96 bpm BP: 124 / 66 mmHg Heart Rhythm: Sinus Rhythm Technical Quality: Fair Exam Date: 02/28/2024 10:26 AM Exam Location: Echo Lab Patient Status: Inpatient Admit Date: 02/22/2024 Staff Ordering Physician: Pal Gonzalez MD Top Collar Baster: Wilfrid Rae ROSITA Attending Provider: Ingrid Snell DO Exam Type: CA echo limited w contrast Study Info Indications - PE Limited two-dimensional transthoracic echocardiogram is performed with contrast. Contrast/Agitated Saline Contrast/Ag. Saline: Definity Amount: 4.00 ml Existing IV Access: Yes Summary 1. Limited echocardiogram with definity contrast performed. 2. Normal left ventricular and right ventricular size and systolic function. 3. Normal appearing cardiac valves. 4. No pericardial fluid. Left Ventricle Left ventricular chamber dimension is normal. Left ventricular systolic function is normal, estimated at 65-70%. There is mild concentric increased left ventricular wall thickness. Right Ventricle Right ventricular chamber dimension is normal. Left Atria Left atrial chamber dimension is normal. Right Atria Right atrial chamber dimension is normal. Aortic Valve The aortic valve is normal. Pulmonic Valve The pulmonic valve is not well visualized. Mitral Valve The mitral valve has normal leaflets. Tricuspid Valve The tricuspid valve leaflets are normal. Aorta The aortic root size at the sinus of Valsalva is normal. Pulmonic Valve Name Value Normal PV Doppler PV Peak Gradient 7 mmHg Tricuspid Valve Name Value Normal TV Regurgitation Doppler TR Peak Velocity 267 cm/s TR Peak Gradient 27 mmHg Ventricles Name Value Normal LV Dimensions 2D/MM IVS Diastolic Thickness (2D) 0.9 cm 0.6-1.0 LVID Diastole (2D) 4.6 cm 3.8-5.2 LVIW Diastolic Thickness (2D) 0.9 cm 0.6-0.9 LVID Systole (2D) 2.7 cm 2.2-3.5 LV Mass (2D Cubed) 139.11 g 67.00-162.00 LV Mass Index (2D Cubed) 68 g/m2 43-95 Relative Wall Thickness (2D) 0.40 LV Fractional Shortening/Ejection Fraction 2D/MM LV Fractional Shortening (2D) 42 % 27-45 LV EF (2D Teicholz) 73 % 54-74 LV Diastolic Volume (4C MOD) 82 ml LV EF (4C MOD) 60 % LV Diastolic Volume (2C MOD) 86 ml LV EF (2C MOD) 74 %
[2024-02-28 00:58] LABS: Legionella pneumophila Ag Ur NOT DETECTED
[2024-02-28] MEDS: HYDROcodone/acetaminophen (*CRX) 5-325 MG TABLET 1 TAB PO ×4 (02:05→23:43)
[2024-02-28] MEDS: AMPICILLIN SULB 3 GM/NS 100 ML 3 GM/100 ML VIAL IVPB ×4 (02:06→20:19)
[2024-02-28] MEDS: IPRATROPIUM BR 0.02% INH SOLN 0.5 MG/2.5 ML VIAL INHALATION ×4 (02:30→21:19)
[2024-02-28] MEDS: LEVALBUTEROL NEB 1.25 MG/3 ML INHALATION ×4 (02:30→21:19)
[2024-02-28] MEDS: metroNIDAZOLE 500 MG TABLET PO ×3 (05:01→21:14)
[2024-02-28 05:23] LABS: Hematocrit 29.3 % (37.0-47.0); Hemoglobin 9.1 g/dL (12.0-15.0); Immature Platelet Fraction Pct 2.4 % (0.9-11.2); Mean Corpuscular HGB Conc 31.1 g/dl (32-36); Mean Corpuscular Hemoglobin 28.4 pg (26-34); Mean Corpuscular Volume 91.6 fl (80-100); Platelet Count Result 630 k/mm3 (150-375); Red Cell Distribution Width 16.4 % (11.5-14.5); White Blood Count 35.9 K/mm3 (4.5-10.0)
[2024-02-28 05:35] LABS: Anion Gap 5 mmol/L (4-12); Blood Urea Nitrogen 6 mg/dL (7-17); Calcium 8.4 mg/dL (8.4-10.2); Carbon Dioxide 33 mmol/L (22-30); Chloride 95 mmol/L (98-107); Creatine Kinase 28 U/L (30-135); Estimated CRCL calculation 113 ml/min; Estimated Glomerular Filt Rate > 60; Glucose 96 mg/dL (65-110); Potassium 4.6 mmol/L (3.4-5.0); Sodium 133 mmol/L (137-145)
[2024-02-28 05:49] LABS: Procalcitonin 0.2 ng/mL
[2024-02-28 05:58] LABS: Band Neutrophils Percent 3 % (0-6); Eosinophils Absolute Manual 0.35 K/mm3 (0.02-0.50); Eosinophils Percent Manual 1 % (0-4); Lymphocytes Absolute Manual 1.79 K/mm3 (1.1-4.5); Lymphocytes Percent Manual 5 % (18-44); Monocytes Absolute Manual 2.15 K/mm3 (0.1-0.90); Monocytes Percent Manual 6 % (3-9); Neutrophils Absolute Manual 31.59 K/mm3 (1.7-7.2); Neutrophils Percent Manual 85 % (46-73); Total Cells Counted 100
[2024-02-28 05:59] LABS: Ovalocytes 1+; Platelet Estimate Increased (Adequate); Schistocytes None Seen; Target Cells 1+
[2024-02-28] MEDS: BUDESONIDE RESPULE NEB 0.5 MG/2 ML AMP INHALATION ×2 (07:10→21:18)
[2024-02-28] MEDS: MORPHINE SULFATE (*CRX) 2 MG/ML INJ IV PUSH ×4 (07:29→20:18)
[2024-02-28] MEDS: guaiFENesin 600 MG/DEXTROMETHORPHAN 30 MG SR TAB 12 HR 1 TAB PO ×2 (08:26→20:18)
[2024-02-28] MEDS: GABAPENTIN 300 MG CAPSULE PO ×3 (08:26→16:43)
[2024-02-28] MEDS: FOLIC ACID 1 MG TABLET PO (08:26)
[2024-02-28] MEDS: POLYSACCHARIDE IRON COMPLEX 150 MG CAPSULE PO ×2 (08:26→16:43)
[2024-02-28] MEDS: PANTOPRAZOLE 40 MG TABLET PO (08:26)
[2024-02-28] MEDS: buPROPion HCL XL (24 HR) 150 MG TABCR PO (08:26)
[2024-02-28] MEDS: CITALOPRAM HYDROBROMIDE 20 MG TABLET 40 MG PO (08:26)
[2024-02-28] MEDS: ENOXAPARIN 40 MG/0.4 ML SYRINGE SUB-Q (08:26)
--- NOTE | 2024-02-28 08:29 | PM.PNPUL ---
Progress Note: A&P Assessment and Plan (1) Acute hypoxic respiratory failure: Code(s): J96.01 - Acute respiratory failure with hypoxia Status: Acute Assessment and Plan: A 48-year-old female presented 02/22/24 with acute respiratory failure, bilateral infiltrates characterized predominantly by ground-glass opacities, a low-grade fever, and a dry cough without sputum production. Considering her known history of dysphagia and a potential aspiration event approximately one week ago, these findings suggest severe aspiration pneumonitis as the most likely cause. Of note, patient with no alveolar interstitial infiltrates on CT scan of the chest from 01/22/2024. Patient quit smoking tobacco in 08/2021 and that did do vaping last use was 1 year ago. 02/22/2024: Blood cultures negative x2 VASQUEZ screen panel negative on 01/03/2021, 03/24/2021, 12/30/2023 and 02/24/2024. COVID, influenza, RSV RT PCR negative on 02/22/2024 and 02/24/2024. 02/24/2024: Sputum growth of normal irma. 02/24/2024: Urine Legionella antigen negative, urine pneumococcal antigen negative, respiratory pathogen panel negative for 23 pathogens, Patient was on high-flow nasal cannula oxygen from 02/23/2024 at 4:00 a.m. (40 L and 40%) to 02/25/2024 at 8:00 a.m (35 L and 35%) 02/25/24: 10:00 patient was on 5 L saturation 97%. 02/26/24:The patient has been treated with Flagyl and Unasyn for pneumonia and has been on supplemental oxygen. Over the past 72 hours, her clinical condition has remained stable. From a respiratory standpoint, there has been improvement in gas exchange and a downward trend in inflammatory markers such as CRP. Auscultatory findings remain essentially unchanged. There may be a subtle improvement in bilateral lung infiltrates on today's chest x-ray. Patient is on 4 L with saturations 94% Plan: Continue with the current management. Discontinue IV steroids. Add nebulized budesonide to her nebulized regimen for the dry cough. Continue to monitor the patient's status. 02/27/24: The patient tells me she has a little worse than yesterday. She describes chest tightness, pleuritic chest pain, hot feelings and dyspnea on exertion with activity. overall she has improved since admission and states that she is 30% back to normal. White blood cell count is 23.0, creatinine 0.5, CRP is decreased from 11.7 to 7.3. Currently she is on 3 L nasal cannula the saturations 93%. I decreased her to 2 L nasal cannula and after 14 minutes her saturations were 91%. Plan: patient is status post ceftriaxone and azithromycin on 02/21, Flagyl started 02/22, day 5. Unasyn since 02/24, day 3. patient received Solu-Medrol 125 on 02/22/24, 60 mg on 02/23 and 60 mg on 02/24. budesonide nebulizer started on 02/25, Continue ipratropium and levalbuterol nebulizers Q 6 hours. Oxygenation has improved. I will send HIV screen. Respiratory pathogen panel for 23 respiratory pathogens is pending from 02/24/2024. I will send additional serologies for autoimmune disease and connective tissue disorder. Chest x-ray in the morning. Goal saturation 90-94% and wean oxygen accordingly. Later in the day HIV screen negative. Respiratory pathogen panel negative. Procalcitonin 0.2. 02/28/24: She is much worse today because of sharp pleuritic right-sided chest pain. Pain is reproduced on movement as well. She states cough is the same, no phlegm production, no hemoptysis. Subjective hot feelings. Patient is on 3 L nasal cannula saturations 94%. White blood cell count is 35.9 with 1% eosinophils. creatinine is 0.6. procalcitonin 0.2. Weight is 69.8 with cumulative diuresis of 4.9 L since admission. chest x-ray this morning with bilateral diffuse interstitial infiltrates improved on the left. Plan: patient is status post ceftriaxone and azithromycin on 02/21, Flagyl started 02/22, day 6. Unasyn since 02/24, day 4. Patient received Solu-Medrol 125 mg on 02/22/24, 60 mg on 02/23 and 60 mg on 02/24. b
[2024-02-28] MEDS: POTASSIUM CHLORIDE 20 MEQ PACKET (FOR LIQUID) PO ×2 (09:34→16:44)
[2024-02-28] MEDS: PANTOPRAZOLE SODIUM IV 40 MG VIAL IV PUSH (09:34)
[2024-02-28 10:23] LABS: Hematocrit 29.5 % (37.0-47.0); Hemoglobin 9.2 g/dL (12.0-15.0); Mean Corpuscular HGB Conc 31.2 g/dl (32-36); Mean Corpuscular Hemoglobin 28.3 pg (26-34); Mean Corpuscular Volume 90.8 fl (80-100); Mean Platelet Volume 8.9 fl (7.4-10.4); Platelet Count Result 490 k/mm3 (150-375); Red Blood Count 3.25 M/mm3 (4.2-5.4); Red Cell Distribution Width 16.1 % (11.5-14.5); White Blood Count 37.3 K/mm3 (4.5-10.0)
[2024-02-28 10:33] LABS: INR 1.2; Prothrombin Time 15.4 Seconds (11.1-14.7)
[2024-02-28 10:34] LABS: Partial Thromboplastin Time 33.4 Seconds (22.3-36.8)
[2024-02-28] MEDS: PERFLUTREN LIPID MICROSPHERES 1.5 ML VIAL DILUTED TO 10 ML TOTAL VOLUME IV PUSH (10:41)
[2024-02-28 10:43] LABS: NT Pro B Type Natriuretic Pept 142 pg/mL (19.9-100)
[2024-02-28] MEDS: HEPARIN SOD/D5W 100 UNITS/ML 25,000 UNITS/250 ML BAG 12 UNITS IV CONT (10:43)
[2024-02-28] MEDS: HEPARIN SODIUM 5,000 UNITS/ML VIAL 5500 UNITS IV PUSH ×2 (10:44→17:49)
[2024-02-28 10:57] LABS: Band Neutrophils Percent 15 % (0-6); Eosinophils Absolute Manual 0.37 K/mm3 (0.02-0.50); Eosinophils Percent Manual 1 % (0-4); Lymphocytes Absolute Manual 3.35 K/mm3 (1.1-4.5); Metamyelocytes Percent 2 %; Monocytes Absolute Manual 2.98 K/mm3 (0.1-0.90); Monocytes Percent Manual 8 % (3-9); Neutrophils Absolute Manual 29.84 K/mm3 (1.7-7.2); Neutrophils Percent Manual 65 % (46-73); Platelet Estimate Slightly Increased (Adequate); Total Cells Counted 100
[2024-02-28 10:58] LABS: Anisocytosis 1+; Hypochromasia 2+; Schistocytes None Seen; Smudge Cells FEW
[2024-02-28 10:59] LABS: Atypical Lymphocytes Present
--- NOTE | 2024-02-28 12:48 | IVDEFINITY ---
Prior to administration of IV Definity the patient was educated on the risks and benefits of the imaging enhancing agent including potential adverse side effects. The patient verbalized understanding. Allergies were verified. No exclusion criteria were identified and at least one of the following inclusion criteria were met: 1) physician request, 2) patient technically difficult to image (per the [place] [employer] guidelines of two or more segments not discernable within the apical view), or 3) questionable left ventricular function. ?
[2024-02-28 13:47] LABS: Source SWAB
--- NOTE | 2024-02-28 14:48 | PM.IMPN ---
Progress Note: A&P Assessment and Plan (1) Acute hypoxic respiratory failure: Code(s): J96.01 - Acute respiratory failure with hypoxia Status: Acute (2) Pneumonia: Qualifiers: Laterality: bilateral Lung location: unspecified part of lung Pneumonia type: due to unspecified organism Qualified Code(s): J18.9 - Pneumonia, unspecified organism Code(s): J18.9 - Pneumonia, unspecified organism Status: Acute (3) Gastroesophageal reflux disease: Qualifiers: Esophagitis presence: esophagitis presence not specified Qualified Code(s): K21.9 - Gastro-esophageal reflux disease without esophagitis Code(s): K21.9 - Gastro-esophageal reflux disease without esophagitis Status: Acute (4) Chronic obstructive pulmonary disease: Qualifiers: COPD type: unspecified COPD Qualified Code(s): J44.9 - Chronic obstructive pulmonary disease, unspecified Code(s): J44.9 - Chronic obstructive pulmonary disease, unspecified Status: Acute (5) Acute hypokalemia: Code(s): E87.6 - Hypokalemia Status: Acute (6) Normocytic anemia: Code(s): D64.9 - Anemia, unspecified Status: Acute Plan Acute respiratory failure with hypoxemia,, multifocal pneumonia Denies history of O2 therapy at home Patient also denies history of COPD CT scan suggest bilateral pneumonia, patient leukocytosis 18,000, Patient is azithromycin ceftriaxone and Flagyl IV to cover community-acquired pneumonia and possible aspiration pneumonia Pending urine Legionella antigen, urine pneumococcal antigen and mycoplasma PCR. No definite diagnosis of COPD, patient stopped smoking about 3 years Upon arrival The 1st ABG did not show CO2 retention, 2nd ABG showed mild CO2 retention possible due to respiratory muscle fatigue Continue scheduled nebulizer treatments with Xopenex and Atrovent. Consult bankruptcy law specialist for evaluation treatment, patient Dr. Carey's consultation Patient condition continued to improve, patient is on 3 L oxygen via nasal cannula bilateral new PE with pulmonary infarction new chest pain severe right-sided 02/20/2024. CTA positive for bilateral PE and pulmonary infarction. Start IV heparin . Check venous duplex Acute heart failure/or fluid overload Unknown history of cardiac issues But patient has elevated BNP, CT scan shows pulmonary edema Possible acute heart failure resulting from sepsis and pneumonia Provided Lasix 80 mg IV push once morning 40 mg IV push in the, patient made significant amount of urine on Patient felt dyspnea improving after she received IV Lasix 02/22 echocardiogram: Normal EF 02/24 repeat echo to check for strain Euvolemia BNP 142 Hypokalemia Received potassium chloride 80 mg Repeated BMP, Corrected Chronic anemia Hemoglobin close to baseline patient does have a low iron and low% saturation Continue iron supplement with iron polysaccharide 150 mg b.i.d. p.o. Follow-up stool guaiac, iron panel,iron low Stool guaiac up is positive,s/w Brown is a 40 mg daily IV, s/w ferrous sulfate 325 mg b.i.d. p.o. GI is on board, f/u recommendation Sepsis Patient received fluid resuscitation Patient has obvious fluid overload Hold normal saline IV now Follow-up input output No bacteriuria growth from urine culture and blood culture GERD Continue Protonix 40 mg daily p.o. Patient denies abdomen pain, nausea vomiting, patient had bowel movement yesterday continue home anxiety and depression medications. Full code Subjective Date/time seen: 02/28/24 14:48 Interval history: had some sharp chest pain on the right side earlier today. Breathing is about the same. Oxygen requirement is stable. Discussed with Pulmonary. CT finding discussed with Pulmonary as well as the patient. Review of Systems Review of Systems: All systems reviewed & are unremarkable except as noted in HPI and below Exam Narrative: [employer]
[2024-02-28 17:43] LABS: Partial Thromboplastin Time 46.5 Seconds (22.3-36.8)
[2024-02-28 17:59] LABS: Procalcitonin 0.2 ng/mL
[2024-02-28] MEDS: CYCLOBENZAPRINE HCL 10 MG TABLET PO (21:16)
[2024-02-28] MEDS: clonazePAM (*CRX) 0.5 MG TABLET PO (21:16)
[2024-02-29] VITALS (18 sets, daily range): BP systolic 106–132; BP diastolic 55–76; PULSE 80–95; RESP 16–21; TEMP 36.4–36.6; O2SAT 94–100
[2024-02-29] MEDS: HEPARIN SODIUM 5,000 UNITS/ML VIAL 3000 UNITS IV PUSH (01:23)
[2024-02-29] MEDS: AMPICILLIN SULB 3 GM/NS 100 ML 3 GM/100 ML VIAL IVPB ×4 (02:16→21:14)
[2024-02-29] MEDS: MORPHINE SULFATE (*CRX) 2 MG/ML INJ IV PUSH ×4 (02:16→21:15)
[2024-02-29] MEDS: LEVALBUTEROL NEB 1.25 MG/3 ML INHALATION ×4 (02:52→20:06)
[2024-02-29] MEDS: IPRATROPIUM BR 0.02% INH SOLN 0.5 MG/2.5 ML VIAL INHALATION ×4 (02:52→20:06)
[2024-02-29] MEDS: HEPARIN SOD/D5W 100 UNITS/ML 25,000 UNITS/250 ML BAG 16 UNITS IV CONT (05:05)
[2024-02-29] MEDS: HYDROcodone/acetaminophen (*CRX) 5-325 MG TABLET 1 TAB PO ×3 (05:42→18:21)
[2024-02-29] MEDS: metroNIDAZOLE 500 MG TABLET PO ×3 (05:42→21:15)
[2024-02-29] MEDS: BUDESONIDE RESPULE NEB 0.5 MG/2 ML AMP INHALATION ×2 (07:47→20:07)
[2024-02-29 08:11] LABS: Alanine Aminotransferase 13 U/L (6-35); Albumin Level 3.5 g/dL (3.5-5.1); Alkaline Phosphatase 87 U/L (38-126); Anion Gap 5 mmol/L (4-12); Aspartate Amino Transferase 23 U/L (14-36); Bilirubin,Total 0.6 mg/dL (0.2-1.3); Blood Urea Nitrogen 9 mg/dL (7-17); Calcium 8.4 mg/dL (8.4-10.2); Carbon Dioxide 27 mmol/L (22-30); Chloride 99 mmol/L (98-107); Estimated CRCL calculation 129 ml/min; Estimated Glomerular Filt Rate > 60; Glucose 97 mg/dL (65-110); Magnesium 2.4 mg/dL (1.6-2.3); Potassium 4.7 mmol/L (3.4-5.0); Sodium 131 mmol/L (137-145)
[2024-02-29] MEDS: CITALOPRAM HYDROBROMIDE 20 MG TABLET 40 MG PO (08:58)
[2024-02-29] MEDS: FOLIC ACID 1 MG TABLET PO (08:58)
[2024-02-29] MEDS: buPROPion HCL XL (24 HR) 150 MG TABCR PO (08:58)
[2024-02-29] MEDS: guaiFENesin 600 MG/DEXTROMETHORPHAN 30 MG SR TAB 12 HR 1 TAB PO ×2 (08:58→21:15)
[2024-02-29] MEDS: POLYSACCHARIDE IRON COMPLEX 150 MG CAPSULE PO ×2 (08:58→17:15)
[2024-02-29] MEDS: PANTOPRAZOLE SODIUM IV 40 MG VIAL IV PUSH (08:58)
[2024-02-29] MEDS: POTASSIUM CHLORIDE 20 MEQ PACKET (FOR LIQUID) PO ×2 (08:58→17:14)
[2024-02-29] MEDS: GABAPENTIN 300 MG CAPSULE PO ×3 (08:58→17:15)
[2024-02-29] MEDS: DOCUSATE SODIUM 100 MG CAPSULE PO (09:00)
[2024-02-29 09:14] LABS: Hematocrit 31.9 % (37.0-47.0); Hemoglobin 9.7 g/dL (12.0-15.0); Mean Corpuscular HGB Conc 30.4 g/dl (32-36); Mean Corpuscular Hemoglobin 28.1 pg (26-34); Mean Corpuscular Volume 92.5 fl (80-100); Mean Platelet Volume 8.8 fl (7.4-10.4); Platelet Count Result 588 k/mm3 (150-375); Red Blood Count 3.45 M/mm3 (4.2-5.4); Red Cell Distribution Width 16.3 % (11.5-14.5); White Blood Count 36.7 K/mm3 (4.5-10.0)
[2024-02-29 09:26] LABS: Band Neutrophils Percent 5 % (0-6); Eosinophils Absolute Manual 0.36 K/mm3 (0.02-0.50); Eosinophils Percent Manual 1 % (0-4); Lymphocytes Absolute Manual 1.83 K/mm3 (1.1-4.5); Lymphocytes Percent Manual 5 % (18-44); Metamyelocytes Percent 3 %; Monocytes Percent Manual 9 % (3-9); Neutrophils Absolute Manual 30.09 K/mm3 (1.7-7.2); Neutrophils Percent Manual 77 % (46-73); Platelet Estimate Increased (Adequate); Total Cells Counted 100
[2024-02-29 09:27] LABS: Poikilocytosis 1+
[2024-02-29 09:28] LABS: Anisocytosis 1+; Schistocytes None Seen
[2024-02-29 09:35] LABS: Partial Thromboplastin Time 53.7 Seconds (22.3-36.8)
[2024-02-29] MEDS: HEPARIN SODIUM 5,000 UNITS/ML VIAL 5500 UNITS IV PUSH ×2 (10:06→17:26)
--- NOTE | 2024-02-29 12:43 | PM.IMPN ---
Progress Note: A&P Assessment and Plan (1) Acute hypoxic respiratory failure: Code(s): J96.01 - Acute respiratory failure with hypoxia Status: Acute (2) Pneumonia: Qualifiers: Laterality: bilateral Lung location: unspecified part of lung Pneumonia type: due to unspecified organism Qualified Code(s): J18.9 - Pneumonia, unspecified organism Code(s): J18.9 - Pneumonia, unspecified organism Status: Acute (3) Gastroesophageal reflux disease: Qualifiers: Esophagitis presence: esophagitis presence not specified Qualified Code(s): K21.9 - Gastro-esophageal reflux disease without esophagitis Code(s): K21.9 - Gastro-esophageal reflux disease without esophagitis Status: Acute (4) Chronic obstructive pulmonary disease: Qualifiers: COPD type: unspecified COPD Qualified Code(s): J44.9 - Chronic obstructive pulmonary disease, unspecified Code(s): J44.9 - Chronic obstructive pulmonary disease, unspecified Status: Acute (5) Acute hypokalemia: Code(s): E87.6 - Hypokalemia Status: Acute (6) Normocytic anemia: Code(s): D64.9 - Anemia, unspecified Status: Acute Plan Acute respiratory failure with hypoxemia,, multifocal pneumonia Denies history of O2 therapy at home Patient also denies history of COPD CT scan suggest bilateral pneumonia, patient leukocytosis 18,000, Patient is azithromycin ceftriaxone and Flagyl IV to cover community-acquired pneumonia and possible aspiration pneumonia Pending urine Legionella antigen, urine pneumococcal antigen and mycoplasma PCR. No definite diagnosis of COPD, patient stopped smoking about 3 years Upon arrival The 1st ABG did not show CO2 retention, 2nd ABG showed mild CO2 retention possible due to respiratory muscle fatigue Continue scheduled nebulizer treatments with Xopenex and Atrovent. Consult cloth calender for evaluation treatment, patient Dr. Carey's consultation Patient condition continued to improve, patient is on 3 L oxygen via nasal cannula # bilateral new PE with pulmonary infarction new chest pain severe right-sided 02/20/2024. CTA positive for bilateral PE and pulmonary infarction. Start IV heparin . Venous duplex negative. Echo with no signs of heart strain continue IV heparin Acute heart failure/or fluid overload Unknown history of cardiac issues But patient has elevated BNP, CT scan shows pulmonary edema Possible acute heart failure resulting from sepsis and pneumonia Provided Lasix 80 mg IV push once morning 40 mg IV push in the, patient made significant amount of urine on Patient felt dyspnea improving after she received IV Lasix 02/22 echocardiogram: Normal EF 02/24 repeat echo to check for strain Euvolemia BNP 142 Hypokalemia Received potassium chloride 80 mg Repeated BMP, Corrected Chronic anemia Hemoglobin close to baseline patient does have a low iron and low% saturation Continue iron supplement with iron polysaccharide 150 mg b.i.d. p.o. Follow-up stool guaiac, iron panel,iron low Stool guaiac up is positive,s/w Brown is a 40 mg daily IV, s/w ferrous sulfate 325 mg b.i.d. p.o. GI is on board, f/u recommendation Sepsis Patient received fluid resuscitation Patient has obvious fluid overload Hold normal saline IV now Follow-up input output No bacteriuria growth from urine culture and blood culture GERD Continue Protonix 40 mg daily p.o. Patient denies abdomen pain, nausea vomiting, patient had bowel movement continue home anxiety and depression medications. Full code Subjective Date/time seen: 02/29/24 12:43 Interval history: No overnight events. Shortness of breath stable. Oxygen requirement has been stable. Has some cough. Right-sided chest pain persist. Controlled with current regimen Review of Systems Review of Systems: All systems reviewed & are unremarkable except as noted in HPI and below Exam Narrat
[2024-02-29 14:14] LABS: CRP 34.3 mg/dL (<1.0)
[2024-02-29 16:57] LABS: Partial Thromboplastin Time 53.8 Seconds (22.3-36.8)
[2024-02-29] MEDS: HEPARIN SOD/D5W 100 UNITS/ML 25,000 UNITS/250 ML BAG 22 UNITS IV CONT (18:50)
[2024-02-29 20:13] LABS: Actin Antibody (IgG) <20 U (<20)
[2024-02-29] MEDS: clonazePAM (*CRX) 0.5 MG TABLET PO (21:15)
[2024-02-29] MEDS: CYCLOBENZAPRINE HCL 10 MG TABLET PO (21:15)
[2024-02-29 23:39] LABS: Partial Thromboplastin Time 152.6 Seconds (22.3-36.8)
[2024-03-01] VITALS (18 sets, daily range): BP systolic 125–133; BP diastolic 59–89; PULSE 83–97; RESP 16–20; TEMP 36.6–37.1; O2SAT 92–98
[2024-03-01] MEDS: LEVALBUTEROL NEB 1.25 MG/3 ML INHALATION ×4 (02:13→21:59)
[2024-03-01] MEDS: IPRATROPIUM BR 0.02% INH SOLN 0.5 MG/2.5 ML VIAL INHALATION ×4 (02:13→21:59)
[2024-03-01] MEDS: AMPICILLIN SULB 3 GM/NS 100 ML 3 GM/100 ML VIAL IVPB ×4 (02:31→21:10)
[2024-03-01] MEDS: HYDROcodone/acetaminophen (*CRX) 5-325 MG TABLET 1 TAB PO ×2 (02:31→09:27)
[2024-03-01] MEDS: MORPHINE SULFATE (*CRX) 2 MG/ML INJ IV PUSH ×2 (05:01→12:45)
[2024-03-01] MEDS: metroNIDAZOLE 500 MG TABLET PO ×3 (05:01→21:10)
[2024-03-01 05:53] LABS: Partial Thromboplastin Time 93.8 Seconds (22.3-36.8)
[2024-03-01 06:07] LABS: Alanine Aminotransferase 13 U/L (6-35); Albumin Level 3.4 g/dL (3.5-5.1); Alkaline Phosphatase 82 U/L (38-126); Anion Gap 6 mmol/L (4-12); Aspartate Amino Transferase 16 U/L (14-36); Bilirubin,Total 0.4 mg/dL (0.2-1.3); Blood Urea Nitrogen 7 mg/dL (7-17); Calcium 8.7 mg/dL (8.4-10.2); Carbon Dioxide 29 mmol/L (22-30); Chloride 99 mmol/L (98-107); Estimated CRCL calculation 109 ml/min; Estimated Glomerular Filt Rate > 60; Glucose 126 mg/dL (65-110); Hematocrit 27.8 % (37.0-47.0); Hemoglobin 8.5 g/dL (12.0-15.0); Magnesium 2.3 mg/dL (1.6-2.3); Mean Corpuscular HGB Conc 30.6 g/dl (32-36); Mean Corpuscular Hemoglobin 27.9 pg (26-34); Mean Corpuscular Volume 91.1 fl (80-100); Mean Platelet Volume 9.1 fl (7.4-10.4); Platelet Count Result 698 k/mm3 (150-375); Potassium 3.7 mmol/L (3.4-5.0); Red Blood Count 3.05 M/mm3 (4.2-5.4); Red Cell Distribution Width 16.3 % (11.5-14.5); Sodium 134 mmol/L (137-145); White Blood Count 29.6 K/mm3 (4.5-10.0)
[2024-03-01 06:44] LABS: Anisocytosis 1+; Band Neutrophils Percent 10 % (0-6); Lymphocytes Absolute Manual 2.07 K/mm3 (1.1-4.5); Metamyelocytes Percent 3 %; Monocytes Absolute Manual 1.18 K/mm3 (0.1-0.90); Monocytes Percent Manual 4 % (3-9); Myelocytes Percent 2 %; Neutrophils Absolute Manual 24.56 K/mm3 (1.7-7.2); Neutrophils Percent Manual 73 % (46-73); Platelet Estimate Increased (Adequate); Poikilocytosis 1+; Promyelocytes Percent 1 %; Schistocytes None Seen; Total Cells Counted 100
[2024-03-01] MEDS: BUDESONIDE RESPULE NEB 0.5 MG/2 ML AMP INHALATION ×2 (07:19→21:59)
[2024-03-01] MEDS: HEPARIN SOD/D5W 100 UNITS/ML 25,000 UNITS/250 ML BAG 20 UNITS IV CONT (09:11)
[2024-03-01] MEDS: guaiFENesin 600 MG/DEXTROMETHORPHAN 30 MG SR TAB 12 HR 1 TAB PO ×2 (09:21→21:10)
[2024-03-01] MEDS: CITALOPRAM HYDROBROMIDE 20 MG TABLET 40 MG PO (09:21)
[2024-03-01] MEDS: POTASSIUM CHLORIDE 20 MEQ PACKET (FOR LIQUID) PO ×2 (09:21→17:42)
[2024-03-01] MEDS: buPROPion HCL XL (24 HR) 150 MG TABCR PO (09:21)
[2024-03-01] MEDS: FOLIC ACID 1 MG TABLET PO (09:21)
[2024-03-01] MEDS: POLYSACCHARIDE IRON COMPLEX 150 MG CAPSULE PO ×2 (09:22→17:41)
[2024-03-01] MEDS: GABAPENTIN 300 MG CAPSULE PO ×3 (09:22→17:41)
[2024-03-01] MEDS: DOCUSATE SODIUM 100 MG CAPSULE PO (09:22)
[2024-03-01] MEDS: PANTOPRAZOLE SODIUM IV 40 MG VIAL IV PUSH (09:23)
[2024-03-01 11:51] LABS: Partial Thromboplastin Time 55.2 Seconds (22.3-36.8)
--- NOTE | 2024-03-01 12:07 | PM.IMPN ---
Progress Note: A&P Assessment and Plan (1) Acute hypoxic respiratory failure: Code(s): J96.01 - Acute respiratory failure with hypoxia Status: Acute (2) Pneumonia: Qualifiers: Laterality: bilateral Lung location: unspecified part of lung Pneumonia type: due to unspecified organism Qualified Code(s): J18.9 - Pneumonia, unspecified organism Code(s): J18.9 - Pneumonia, unspecified organism Status: Acute (3) Gastroesophageal reflux disease: Qualifiers: Esophagitis presence: esophagitis presence not specified Qualified Code(s): K21.9 - Gastro-esophageal reflux disease without esophagitis Code(s): K21.9 - Gastro-esophageal reflux disease without esophagitis Status: Acute (4) Chronic obstructive pulmonary disease: Qualifiers: COPD type: unspecified COPD Qualified Code(s): J44.9 - Chronic obstructive pulmonary disease, unspecified Code(s): J44.9 - Chronic obstructive pulmonary disease, unspecified Status: Acute (5) Acute hypokalemia: Code(s): E87.6 - Hypokalemia Status: Acute (6) Normocytic anemia: Code(s): D64.9 - Anemia, unspecified Status: Acute Plan Acute respiratory failure with hypoxemia,, multifocal pneumonia Denies history of O2 therapy at home Patient also denies history of COPD CT scan suggest bilateral pneumonia, patient leukocytosis 18,000, Patient is azithromycin ceftriaxone and Flagyl IV to cover community-acquired pneumonia and possible aspiration pneumonia Pending urine Legionella antigen, urine pneumococcal antigen and mycoplasma PCR. No definite diagnosis of COPD, patient stopped smoking about 3 years Upon arrival The 1st ABG did not show CO2 retention, 2nd ABG showed mild CO2 retention possible due to respiratory muscle fatigue Continue scheduled nebulizer treatments with Xopenex and Atrovent. Consult tree warden for evaluation treatment, patient Dr. Carey's consultation Patient condition continued to improve, patient is on 3 L oxygen via nasal cannula Will check chest x-ray today Pain control with increased [place] dose today. # bilateral new PE with pulmonary infarction new chest pain severe right-sided 02/20/2024. CTA positive for bilateral PE and pulmonary infarction. Start IV heparin . Venous duplex negative. Echo with no signs of heart strain continue IV heparin # Acute heart failure/or fluid overload Unknown history of cardiac issues But patient has elevated BNP, CT scan shows pulmonary edema Possible acute heart failure resulting from sepsis and pneumonia Provided Lasix 80 mg IV push once morning 40 mg IV push in the, patient made significant amount of urine on Patient felt dyspnea improving after she received IV Lasix 02/22 echocardiogram: Normal EF 02/24 repeat echo to check for strain Euvolemia BNP 142 # Hypokalemia Received potassium chloride 80 mg Repeated BMP, Corrected # Chronic anemia Hemoglobin close to baseline patient does have a low iron and low% saturation Continue iron supplement with iron polysaccharide 150 mg b.i.d. p.o. Follow-up stool guaiac, iron panel,iron low Stool guaiac up is positive,s/w Brown is a 40 mg daily IV, s/w ferrous sulfate 325 mg b.i.d. p.o. GI is on board, f/u recommendation # Sepsis Patient received fluid resuscitation Patient has obvious fluid overload Hold normal saline IV now Follow-up input output No bacteriuria growth from urine culture and blood culture # GERD Continue Protonix 40 mg daily p.o. Patient denies abdomen pain, nausea vomiting, patient had bowel movement # continue home anxiety and depression medications. # Full code Subjective Date/time seen: 03/01/24 12:07 Interval history: Continues to have chest pain on the right side. Shortness of breath has improved. Minimal cough. Labs reviewed. Oxygen requirement stable. Review of Systems Review of Systems: All systems reviewed &
[2024-03-01] MEDS: HEPARIN SODIUM 5,000 UNITS/ML VIAL 3000 UNITS IV PUSH (12:13)
[2024-03-01] MEDS: FUROSEMIDE INJ 40 MG/4 ML VIAL IV PUSH (15:13)
[2024-03-01] MEDS: HYDROcodone/acetaminophen (*CRX) 10-325 MG TABLET 1 TAB PO ×2 (17:42→21:42)
[2024-03-01 18:40] LABS: Partial Thromboplastin Time 71.7 Seconds (22.3-36.8)
[2024-03-01] MEDS: clonazePAM (*CRX) 0.5 MG TABLET PO (21:10)
[2024-03-01] MEDS: CYCLOBENZAPRINE HCL 10 MG TABLET PO (21:10)
[2024-03-01] MEDS: HEPARIN SOD/D5W 100 UNITS/ML 25,000 UNITS/250 ML BAG 21 UNITS IV CONT (21:17)
[2024-03-02] VITALS (18 sets, daily range): BP systolic 117–126; BP diastolic 62–83; PULSE 84–104; RESP 18–20; TEMP 36.3–37.1; O2SAT 92–98; BMI 32.6
[2024-03-02 00:47] LABS: Partial Thromboplastin Time 95.5 Seconds (22.3-36.8)
[2024-03-02] MEDS: IPRATROPIUM BR 0.02% INH SOLN 0.5 MG/2.5 ML VIAL INHALATION ×5 (02:12→20:06)
[2024-03-02] MEDS: LEVALBUTEROL NEB 1.25 MG/3 ML INHALATION ×5 (02:12→20:06)
[2024-03-02] MEDS: AMPICILLIN SULB 3 GM/NS 100 ML 3 GM/100 ML VIAL IVPB ×4 (02:33→20:57)
[2024-03-02] MEDS: metroNIDAZOLE 500 MG TABLET PO (05:30)
[2024-03-02] MEDS: HYDROcodone/acetaminophen (*CRX) 10-325 MG TABLET 1 TAB PO ×4 (05:30→21:50)
[2024-03-02 05:51] LABS: Basophils Absolute Auto 0.2 K/mm3 (0.0-0.1); Basophils Percent Auto 0.7 % (0.2-1.2); Eosinophils Absolute Auto 0.3 K/mm3 (0-0.3); Eosinophils Percent Auto 1.4 % (0-4.4); Immature Granulocyte Percent A 7.8 % (0-0.5); Lymphocytes Absolute Auto 2.07 K/mm3 (0.9-3.2); Lymphocytes Percent Auto 8.5 % (18.3-44.2); Mean Corpuscular Volume 90.1 fl (80-100); Mean Platelet Volume 8.9 fl (7.4-10.4); Monocytes Absolute Auto 2.7 K/mm3 (0.1-0.6); Neutrophils Absolute Auto 17.3 K/mm3 (1.3-6.7); Neutrophils Percent Auto 70.6 % (45.5-73.1); Platelet Count Result 800 k/mm3 (150-375); Red Blood Count 3.22 M/mm3 (4.2-5.4); Red Cell Distribution Width 16.3 % (11.5-14.5); White Blood Count 24.4 K/mm3 (4.5-10.0)
[2024-03-02 06:04] LABS: Partial Thromboplastin Time 99.5 Seconds (22.3-36.8)
[2024-03-02 06:09] LABS: Alanine Aminotransferase 11 U/L (6-35); Albumin Level 3.5 g/dL (3.5-5.1); Alkaline Phosphatase 84 U/L (38-126); Anion Gap 4 mmol/L (4-12); Aspartate Amino Transferase 15 U/L (14-36); Bilirubin,Total 0.3 mg/dL (0.2-1.3); Blood Urea Nitrogen 8 mg/dL (7-17); Calcium 8.5 mg/dL (8.4-10.2); Carbon Dioxide 31 mmol/L (22-30); Chloride 98 mmol/L (98-107); Estimated CRCL calculation 128 ml/min; Estimated Glomerular Filt Rate > 60; Glucose 101 mg/dL (65-110); Magnesium 2.2 mg/dL (1.6-2.3); Potassium 3.9 mmol/L (3.4-5.0); Sodium 133 mmol/L (137-145)
[2024-03-02] MEDS: BUDESONIDE RESPULE NEB 0.5 MG/2 ML AMP INHALATION (07:04)
[2024-03-02 08:03] LABS: CRP 33.7 mg/dL (<1.0)
[2024-03-02] MEDS: CITALOPRAM HYDROBROMIDE 20 MG TABLET 40 MG PO (09:00)
[2024-03-02] MEDS: FOLIC ACID 1 MG TABLET PO (09:00)
[2024-03-02] MEDS: POTASSIUM CHLORIDE 20 MEQ PACKET (FOR LIQUID) PO ×2 (09:00→18:04)
[2024-03-02] MEDS: DOCUSATE SODIUM 100 MG CAPSULE PO ×2 (09:00→20:56)
[2024-03-02] MEDS: buPROPion HCL XL (24 HR) 150 MG TABCR PO (09:00)
[2024-03-02] MEDS: guaiFENesin 600 MG/DEXTROMETHORPHAN 30 MG SR TAB 12 HR 1 TAB PO (09:00)
[2024-03-02] MEDS: PANTOPRAZOLE SODIUM IV 40 MG VIAL IV PUSH (09:00)
[2024-03-02] MEDS: GABAPENTIN 300 MG CAPSULE PO ×3 (09:00→18:03)
[2024-03-02] MEDS: POLYSACCHARIDE IRON COMPLEX 150 MG CAPSULE PO ×2 (09:00→18:04)
[2024-03-02] MEDS: HEPARIN SOD/D5W 100 UNITS/ML 25,000 UNITS/250 ML BAG 21 UNITS IV CONT (09:55)
[2024-03-02 13:17] LABS: Aldolase 13.8 U/L (< OR = 8.1)
--- NOTE | 2024-03-02 13:17 | PM.IMPN ---
Progress Note: A&P Assessment and Plan (1) Acute hypoxic respiratory failure: Code(s): J96.01 - Acute respiratory failure with hypoxia Status: Acute (2) Pneumonia: Qualifiers: Laterality: bilateral Lung location: unspecified part of lung Pneumonia type: due to unspecified organism Qualified Code(s): J18.9 - Pneumonia, unspecified organism Code(s): J18.9 - Pneumonia, unspecified organism Status: Acute (3) Gastroesophageal reflux disease: Qualifiers: Esophagitis presence: esophagitis presence not specified Qualified Code(s): K21.9 - Gastro-esophageal reflux disease without esophagitis Code(s): K21.9 - Gastro-esophageal reflux disease without esophagitis Status: Acute (4) Chronic obstructive pulmonary disease: Qualifiers: COPD type: unspecified COPD Qualified Code(s): J44.9 - Chronic obstructive pulmonary disease, unspecified Code(s): J44.9 - Chronic obstructive pulmonary disease, unspecified Status: Acute (5) Acute hypokalemia: Code(s): E87.6 - Hypokalemia Status: Acute (6) Normocytic anemia: Code(s): D64.9 - Anemia, unspecified Status: Acute Plan Acute respiratory failure with hypoxemia,, multifocal pneumonia Denies history of O2 therapy at home Patient also denies history of COPD CT scan suggest bilateral pneumonia, patient leukocytosis 18,000, Patient is azithromycin ceftriaxone and Flagyl IV to cover community-acquired pneumonia and possible aspiration pneumonia Pending urine Legionella antigen, urine pneumococcal antigen and mycoplasma PCR. No definite diagnosis of COPD, patient stopped smoking about 3 years Upon arrival The 1st ABG did not show CO2 retention, 2nd ABG showed mild CO2 retention possible due to respiratory muscle fatigue Continue scheduled nebulizer treatments with Xopenex and Atrovent. Consult supervisor tank cleaning for evaluation treatment, patient Dr. Carey's consultation Patient condition continued to improve, patient is on 3 L oxygen via nasal cannula Will check chest x-ray today Pain control with increased [place] dose today. # bilateral new PE with pulmonary infarction new chest pain severe right-sided 02/20/2024. CTA positive for bilateral PE and pulmonary infarction. Start IV heparin . Venous duplex negative. Echo with no signs of heart strain continue IV heparin switch to oral # Acute heart failure/or fluid overload Unknown history of cardiac issues But patient has elevated BNP, CT scan shows pulmonary edema Possible acute heart failure resulting from sepsis and pneumonia Provided Lasix 80 mg IV push once morning 40 mg IV push in the, patient made significant amount of urine on Patient felt dyspnea improving after she received IV Lasix 02/22 echocardiogram: Normal EF 02/24 repeat echo to check for strain Euvolemia BNP 142 # Hypokalemia Received potassium chloride 80 mg Repeated BMP, Corrected # Chronic anemia Hemoglobin close to baseline patient does have a low iron and low% saturation Continue iron supplement with iron polysaccharide 150 mg b.i.d. p.o. Follow-up stool guaiac, iron panel,iron low Stool guaiac up is positive,s/w Brown is a 40 mg daily IV, s/w ferrous sulfate 325 mg b.i.d. p.o. GI is on board, f/u recommendation # Sepsis Patient received fluid resuscitation Patient has obvious fluid overload Hold normal saline IV now Follow-up input output No bacteriuria growth from urine culture and blood culture # GERD Continue Protonix 40 mg daily p.o. Patient denies abdomen pain, nausea vomiting, patient had bowel movement # continue home anxiety and depression medications. # Full code Subjective Date/time seen: 03/02/24 13:17 Interval history: Pain is better today breathing stable discussed with Pulmonary Review of Systems Review of Systems: All systems reviewed & are unremarkable except as noted in HPI and below Exam Narr
[2024-03-02 13:28] LABS: Rheumatoid Factor < 12.0 IU/ML (<12)
[2024-03-02] MEDS: APIXABAN 5 MG TABLET 10 MG PO (20:56)
[2024-03-03] VITALS (14 sets, daily range): BP systolic 117; BP diastolic 61; PULSE 85–112; RESP 18–20; TEMP 36.8; O2SAT 87–100
[2024-03-03] MEDS: HYDROcodone/acetaminophen (*CRX) 10-325 MG TABLET 1 TAB PO ×3 (04:24→14:07)
[2024-03-03] MEDS: LEVALBUTEROL NEB 1.25 MG/3 ML INHALATION ×2 (04:56→08:45)
[2024-03-03] MEDS: IPRATROPIUM BR 0.02% INH SOLN 0.5 MG/2.5 ML VIAL INHALATION ×2 (04:56→08:45)
[2024-03-03 05:57] LABS: Basophils Absolute Auto 0.2 K/mm3 (0.0-0.1); Basophils Percent Auto 0.8 % (0.2-1.2); Eosinophils Absolute Auto 0.3 K/mm3 (0-0.3); Eosinophils Percent Auto 1.1 % (0-4.4); Hematocrit 27.2 % (37.0-47.0); Hemoglobin 8.1 g/dL (12.0-15.0); Immature Granulocyte Absolute 1.69 K/mm3 (0.00-0.031); Immature Granulocyte Percent A 7.4 % (0-0.5); Lymphocytes Absolute Auto 1.74 K/mm3 (0.9-3.2); Lymphocytes Percent Auto 7.6 % (18.3-44.2); Mean Corpuscular HGB Conc 29.8 g/dl (32-36); Mean Corpuscular Hemoglobin 27.4 pg (26-34); Mean Corpuscular Volume 91.9 fl (80-100); Mean Platelet Volume 8.7 fl (7.4-10.4); Monocytes Absolute Auto 2.6 K/mm3 (0.1-0.6); Monocytes Percent Auto 11.3 % (2.6-8.5); Neutrophils Absolute Auto 16.4 K/mm3 (1.3-6.7); Neutrophils Percent Auto 71.8 % (45.5-73.1); Platelet Count Result 906 k/mm3 (150-375); Red Blood Count 2.96 M/mm3 (4.2-5.4); Red Cell Distribution Width 16.5 % (11.5-14.5); White Blood Count 22.8 K/mm3 (4.5-10.0)
[2024-03-03 06:14] LABS: Partial Thromboplastin Time 40.2 Seconds (22.3-36.8)
[2024-03-03 06:17] LABS: Alanine Aminotransferase 11 U/L (6-35); Albumin Level 3.5 g/dL (3.5-5.1); Alkaline Phosphatase 78 U/L (38-126); Anion Gap 3 mmol/L (4-12); Aspartate Amino Transferase 16 U/L (14-36); Bilirubin,Total 0.5 mg/dL (0.2-1.3); Blood Urea Nitrogen 7 mg/dL (7-17); Calcium 8.7 mg/dL (8.4-10.2); Carbon Dioxide 32 mmol/L (22-30); Chloride 98 mmol/L (98-107); Estimated CRCL calculation 128 ml/min; Estimated Glomerular Filt Rate > 60; Glucose 106 mg/dL (65-110); Magnesium 2.3 mg/dL (1.6-2.3); Potassium 4.3 mmol/L (3.4-5.0); Sodium 133 mmol/L (137-145)
[2024-03-03 08:58] LABS: Mitochondrial (M2) Ab (IgG) <20.0 U
[2024-03-03] MEDS: POTASSIUM CHLORIDE 20 MEQ PACKET (FOR LIQUID) PO (09:16)
[2024-03-03] MEDS: buPROPion HCL XL (24 HR) 150 MG TABCR PO (09:17)
[2024-03-03] MEDS: FOLIC ACID 1 MG TABLET PO (09:17)
[2024-03-03] MEDS: APIXABAN 5 MG TABLET 10 MG PO (09:17)
[2024-03-03] MEDS: DOCUSATE SODIUM 100 MG CAPSULE PO (09:17)
[2024-03-03] MEDS: GABAPENTIN 300 MG CAPSULE PO ×2 (09:17→12:53)
[2024-03-03] MEDS: POLYSACCHARIDE IRON COMPLEX 150 MG CAPSULE PO (09:17)
[2024-03-03] MEDS: CITALOPRAM HYDROBROMIDE 20 MG TABLET 40 MG PO (09:18)
[2024-03-03] MEDS: PANTOPRAZOLE SODIUM IV 40 MG VIAL IV PUSH (09:18)
--- NOTE | 2024-03-03 11:53 | HOMEO2EVAL ---
Evaluation was performed at [facility] Home Oxygen Evaluation RC: Home Oxygen (O2) Evaluation Start: 03/03/24 08:43 Freq: ONCE Status: Active Protocol: RPE Activity Type Activity Date Activity User E-sign Co-sign Detail Recorded Client Recorded Date Recorded By Document 03/03/24 11:15 JOSE [email or web address] 03/03/24 11:53 JOSE Document 03/03/24 11:16 JOSE [email or web address] 03/03/24 11:53 JOSE Document 03/03/24 11:18 JOSE [email or web address] 03/03/24 11:53 JOSE Document 03/03/24 11:20 JOSE [email or web address] 03/03/24 11:53 JOSE Document 03/03/24 11:30 JOSE [email or web address] 03/03/24 11:53 JOSE 03/03/24 03/03/24 03/03/24 11:15 11:16 11:18 Home O2 Evaluation [Oxygen] -Test Phase Resting Resting Exercise -Oxygen Delivery Room Air Nasal Cannula Nasal Cannula -Oxygen Flow Rate (L/min) 1 1 [Pulse Oximetry] -Pulse Oximetry (90-100 %) 87 L 91 87 L [Pulse Rate] -Pulse Rate (60-100 beats/min) 90 112 H [Comments] -Home Oxygen Evaluation Comments [Charges] -Evaluation Charges O2 Evaluation by Pulmonary 03/03/24 03/03/24 11:20 11:30 Home O2 Evaluation [Oxygen] -Test Phase Exercise Resting -Oxygen Delivery Nasal Cannula Nasal Cannula -Oxygen Flow Rate (L/min) 2 1 [Pulse Oximetry] -Pulse Oximetry (90-100 %) 91 93 [Pulse Rate] -Pulse Rate (60-100 beats/min) 110 H 93 [Comments] -Home Oxygen Evaluation Comments PT REQUIRES 1 L REST AND 2 L WITH ACTIVITY AND 2 L NOCTURNAL [Charges] -Evaluation Charges
--- NOTE | 2024-03-03 12:07 | PCRCNOTE ---
WILL ARRANGE HOME O2 SET UP WITH [facility]. 1L REST, 2 L ACTIVITY AND NOCTURAL. WILL BRING TRANSPORT TANK TO ROOM FOR D/C, RN AWARE.
[2024-03-03 12:24] LABS: ANCA Screen NEGATIVE (NEGATIVE)
--- NOTE | 2024-03-03 13:09 | PM.DS ---
DS: Admitting Diagnosis Discharge Date 03/03/2024 Admitting Diagnosis Shortness of breath DS: Discharge Diagnosis Discharge Diagnosis (1) Acute hypoxic respiratory failure: Code(s): J96.01 - Acute respiratory failure with hypoxia Status: Acute (2) Pneumonia: Qualifiers: Laterality: bilateral Lung location: unspecified part of lung Pneumonia type: due to unspecified organism Qualified Code(s): J18.9 - Pneumonia, unspecified organism Code(s): J18.9 - Pneumonia, unspecified organism Status: Acute (3) Gastroesophageal reflux disease: Qualifiers: Esophagitis presence: esophagitis presence not specified Qualified Code(s): K21.9 - Gastro-esophageal reflux disease without esophagitis Code(s): K21.9 - Gastro-esophageal reflux disease without esophagitis Status: Acute (4) Chronic obstructive pulmonary disease: Qualifiers: COPD type: unspecified COPD Qualified Code(s): J44.9 - Chronic obstructive pulmonary disease, unspecified Code(s): J44.9 - Chronic obstructive pulmonary disease, unspecified Status: Acute (5) Acute hypokalemia: Code(s): E87.6 - Hypokalemia Status: Acute (6) Normocytic anemia: Code(s): D64.9 - Anemia, unspecified Status: Acute DS: Summary Hospital Course Hospital Course: # Acute respiratory failure with hypoxemia,, multifocal pneumonia Denies history of O2 therapy at home Patient also denies history of COPD CT scan suggest bilateral pneumonia, patient leukocytosis 18,000, Patient is azithromycin ceftriaxone and Flagyl IV to cover community-acquired pneumonia and possible aspiration pneumonia. Patient completed antibiotic therapy during hospitalization Pending urine Legionella antigen, urine pneumococcal antigen and mycoplasma PCR. No definite diagnosis of COPD, patient stopped smoking about 3 years Upon arrival The 1st ABG did not show CO2 retention, 2nd ABG showed mild CO2 retention possible due to respiratory muscle fatigue Continue scheduled nebulizer treatments with Xopenex and Atrovent. Pulmonary was consulted during the hospital stay Patient condition continued to improve, patient is on 3 L oxygen via nasal cannula still require oxygen at the time of discharge # bilateral new PE with pulmonary infarction new chest pain severe right-sided 02/20/2024. CTA positive for bilateral PE and pulmonary infarction. Start IV heparin . Venous duplex negative. Echo with no signs of heart strain continue IV heparin switch to oral. Patient was switched to Eliquis at discharge. On [place] p.r.n. for pain control # Acute heart failure/or fluid overload Unknown history of cardiac issues But patient has elevated BNP, CT scan shows pulmonary edema Possible acute heart failure resulting from sepsis and pneumonia Provided Lasix 80 mg IV push once morning 40 mg IV push in the, patient made significant amount of urine on Patient felt dyspnea improving after she received IV Lasix 02/22 echocardiogram: Normal EF 02/24 repeat echo to check for strain Euvolemia BNP 142 # Hypokalemia Received potassium chloride 80 mg Repeated BMP, Corrected # Chronic anemia Hemoglobin close to baseline patient does have a low iron and low% saturation Continue iron supplement with iron polysaccharide 150 mg b.i.d. p.o. Follow-up stool guaiac, iron panel,iron low Stool guaiac up is positive,s/w Brown is a 40 mg daily IV, s/w ferrous sulfate 325 mg b.i.d. p.o. GI is on board, f/u recommendation # Sepsis Patient received fluid resuscitation Patient has obvious fluid overload Hold normal saline IV now Follow-up input output No bacteriuria growth from urine culture and blood culture # GERD Continue Protonix 40 mg daily p.o. Patient denies abdomen pain, nausea vomiting, patient had bowel movement # continue home anxiety and depression medications. # Full code Time Spent with Patient Time attestation: To
[2024-03-09 13:59] LABS: Anti Cyclic Citrullinated Pept <16 UNITS
[2024-03-09 15:29] LABS: ALT 22 U/L (6-29); Alpha-2-Macroglobulin 131 mg/dL (106-279); Apolipoprotein A1 88 mg/dL (101-198); Fibrosis Score 0.06; Fibrosis Stage F0; GGT 31 U/L (3-55); Haptoglobin 377 mg/dL (43-212); Necroinflammat Act Grade A0; Reference ID 4995672; Total Bilirubin 0.3 mg/dL (0.2-1.2)
[2024-03-11 03:05] LABS: JO-1 AB <11 SI (<11); MI-2 Alpha Ab <11 SI (<11); MI-2 Beta Ab <11 SI (<11); NXP-2 AB <11 SI (<11); TIF1 Gamma Ab <11 SI (<11)
[2024-03-11 23:48] LABS: Aspergillus fumigatus NEGATIVE (NEGATIVE)
== END 2024-03-03 15:00 | disposition home or self-care (01) | DRG 720 ==
LOC: ANHED 16:59 → ANH2MED 21:34 → ANHIMU 02-23 03:55 → ANH3MED 02-25 18:37
PROVIDERS: Hospitalist; Internal Medicine Pulmonary Disease; Nurse Practitioner Family; Physician Assistant; Admitting Provider Internal Medicine; Emergency Provider Emergency Medicine; PCP Family Medicine; Visit Provider Internal Medicine
DX: A41.9 Sepsis, unspecified organism (principal); J96.01 Acute respiratory failure with hypoxia; J18.9 Pneumonia, unspecified organism; J69.0 Pneumonitis due to inhalation of food and vomit; I26.99 Other pulmonary embolism without acute cor pulmonale; K21.9 Gastro-esophageal reflux disease without esophagitis; E87.6 Hypokalemia; I50.9 Heart failure, unspecified; K58.9 Irritable bowel syndrome, unspecified; M50.30 Other cervical disc degeneration, unspecified cervical region; M51.36 Other intervertebral disc degeneration, lumbar region; M47.817 Spondylosis without myelopathy or radiculopathy, lumbosacral region; F17.290 Nicotine dependence, other tobacco product, uncomplicated; K44.9 Diaphragmatic hernia without obstruction or gangrene; G62.9 Polyneuropathy, unspecified; F41.9 Anxiety disorder, unspecified; R74.01 Elevation of levels of liver transaminase levels; F32.A Depression, unspecified; E66.9 Obesity, unspecified; R13.10 Dysphagia, unspecified; D50.9 Iron deficiency anemia, unspecified; Z20.822 Contact with and (suspected) exposure to COVID-19; R93.3 Abnormal findings on diagnostic imaging of other parts of digestive tract; R68.81 Early satiety; J45.909 Unspecified asthma, uncomplicated; Z68.32 Body mass index [BMI] 32.0-32.9, adult; Z90.49 Acquired absence of other specified parts of digestive tract
CPT/HCPCS: 36415; 36600; 71045; 71275; 80048; 80053; 81001; 81025; 81596; 82085; 82103; 82105; 82274; 82390; 82550; 82728; 82784; 82805; 83520; 83540; 83550; 83605; 83735; 83880; 84132; 84145; 84182; 84484; 85025; 85055; 85610; 85730; 86036; 86038; 86039; 86140; 86200; 86364; 86430; 86703; 87040; 87070; 87205; 87449; 87581; 87633; 87637; 87641; 87899; 93005; 93306; 93308; 93970; 94618; 94640; 94762; 96360; 99285; A9270; C8924; C9113; G0432; J0295; J0456; J0696; J1644; J1650; J1836; J1940; J2270; J2470; J2919; J3480; J7030; J7040; J7050; Q9957; Q9967

== ENCOUNTER 2024-03-25 13:04 | Emergency (ER) | payer MEDICAID, SELFPAY ==
--- NOTE | ~2024-03-25 | CT_ITS ---
EXAMINATION: CTA chest PE protocol DATE: 03/25/2024 16:44 CDT INDICATION: Shortness of breath TECHNIQUE: Computed tomographic angiography (CTA) of the chest was performed with 100 mL Omnipaque-35 0 intravenous contrast. The dose-length product was 305.58 mGy-cm. Maximum intensity projection 3D-re constructions of the aorta and other arteries were constructed by the technologist on a separate work station. Automated exposure control and iterative reconstruction technique were employed. COMPARISON: CT dated 02/28/2024. FINDINGS: There are small filling defects in multiple right segmental pulmonary arteries, consistent with pulmonary embolism. Decreased thrombus burden compared with prior examination. No thoracic lymph node enlargement. Small right pleural effusion. Patchy groundglass opacities with focal consolidatio n in the right lower lobe, suspicious for pneumonia. No pneumothorax. No endobronchial lesion. No jona dence for aortic aneurysm or dissection. No significant pleural or pericardial effusion. IMPRESSION: 1. Pulmonary embolism with multiple segmental right pulmonary arteries, small thrombus burden which i s decreased compared with prior study. 2: Patchy groundglass opacities of the right lung with more focal consolidation in the right lower l obe, consistent with pneumonia. 3: Small right pleural effusion. Reviewed, dictated and finalized at location B. IMPRESSION: 1. Pulmonary embolism with multiple segmental right pulmonary arteries, small t hrombus burden which is decreased compared with prior study. 2: Patchy groundglass opacities of the right lung with more focal consolidatio n in the right lower lobe, consistent with pneumonia. 3: Small right pleural effusion.
--- NOTE | ~2024-03-25 | XR_ITS ---
XR chest 2V 03/25/2024 13:33 Indication: Shortness of breath. History of PE. Procedure: 2 view chest Comparison: Comparison to multiple prior studies sequentially, with oldest reviewed study dated 02/27. Findings: Right basilar airspace consolidation which may represent atelectasis or pneumonia. Heart si ze normal. Elevated right diaphragm. No edema or pneumothorax. Impression: 1: Right basilar airspace disease, atelectasis versus pneumonia. Reviewed, dictated and finalized at location B. Impression: 1: Right basilar airspace disease, atelectasis versus pneumonia.
--- NOTE | 2024-03-25 13:06 | ECG_ITS ---
Test Date: 2024-03-25 13:11:13 Measurements Intervals [place] Rate: 100 P: 60 OK: 128 QRS: 70 QRSD: 85 T: 3 QT: 356 QTc: 459 Interpretive Statements SINUS TACHYCARDIA LEFT ATRIAL ENLARGEMENT BORDERLINE ST-T WAVE ABNORMALITY- INFERIOR LEADS BASELINE ARTIFACT- I, II, AVR BORDERLINE ECG Compared to ECG 02/24/2024 07:58:20 HEART RATE HAS INCREASED Electronically Signed On 03-25-2024 13:12:46 CDT by Fermin Forman D.O.
[2024-03-25 13:11] VITALS: BP 143/88; PULSE 94; RESP 27; TEMP 37.3; O2SAT 100
[2024-03-25 13:15] VITALS: O2SAT 100
[2024-03-25 13:37] LABS: Basophils Absolute Auto 0.1 K/mm3 (0.0-0.1); Eosinophils Absolute Auto 0.2 K/mm3 (0-0.3); Eosinophils Percent Auto 2.7 % (0-4.4); Hematocrit 37.1 % (37.0-47.0); Hemoglobin 11.2 g/dL (12.0-15.0); Immature Granulocyte Absolute 0.05 K/mm3 (0.00-0.031); Immature Granulocyte Percent A 0.7 % (0-0.5); Lymphocytes Absolute Auto 1.55 K/mm3 (0.9-3.2); Lymphocytes Percent Auto 21.1 % (18.3-44.2); Mean Corpuscular HGB Conc 30.2 g/dl (32-36); Mean Corpuscular Hemoglobin 26.9 pg (26-34); Monocytes Absolute Auto 0.4 K/mm3 (0.1-0.6); Monocytes Percent Auto 5.6 % (2.6-8.5); Neutrophils Absolute Auto 5.1 K/mm3 (1.3-6.7); Neutrophils Percent Auto 68.9 % (45.5-73.1); Platelet Count Result 474 k/mm3 (150-375); Red Blood Count 4.17 M/mm3 (4.2-5.4); Red Cell Distribution Width 16.8 % (11.5-14.5); White Blood Count 7.3 K/mm3 (4.5-10.0)
[2024-03-25 13:51] LABS: Alanine Aminotransferase 14 U/L (6-35); Albumin Level 4.6 g/dL (3.5-5.1); Alkaline Phosphatase 96 U/L (38-126); Anion Gap 11 mmol/L (4-12); Aspartate Amino Transferase 20 U/L (14-36); Bilirubin,Total 0.4 mg/dL (0.2-1.3); Blood Urea Nitrogen 9 mg/dL (7-17); Carbon Dioxide 30 mmol/L (22-30); Chloride 98 mmol/L (98-107); Estimated CRCL calculation 90 ml/min; Estimated Glomerular Filt Rate > 60; Glucose 123 mg/dL (65-110); Potassium 3.8 mmol/L (3.4-5.0); Sodium 139 mmol/L (137-145)
[2024-03-25 14:36] VITALS: BP 122/67; PULSE 82; RESP 13; O2SAT 100
[2024-03-25] MEDS: MORPHINE SULFATE (*CRX) 2 MG/ML INJ IV PUSH (15:29)
[2024-03-25 17:04] VITALS: BP 110/67; PULSE 88; RESP 21; O2SAT 100
--- NOTE | 2024-03-25 17:13 | ED.SOB ---
HPI - SOB/Dyspnea General Chief Complaint: Shortness of Breath/Dyspnea Stated Complaint: sob Time Seen by Provider: 03/25/24 15:16 History of Present Illness HPI Narrative: Pt presents with SOB and right sided CP. Pt has recent Hx of PE and is on eliquis and is concerned it may be worsening. Pt also has been admitted for pneumonia and sepsis. Pt is on home oxygen as well. Pt denies fever or cough. Related Data Home Medications Medication Instructions Recorded Confirmed bupropion HCl 150 mg 24 hr tablet, 150 mg PO DAILY 09/06/22 02/22/24 extended release citalopram 40 mg tablet 40 mg PO DAILY 09/06/22 02/22/24 omeprazole 20 mg capsule,delayed 20 mg PO DAILY 10/23/22 02/22/24 release clonazepam 0.5 mg tablet 0.5 mg PO BID PRN Anxiety 03/22/23 02/22/24 gabapentin 100 mg capsule 300 mg PO TID 05/30/23 02/22/24 docusate sodium 100 mg capsule 100 mg PO BID 12/30/23 02/22/24 famotidine 40 mg tablet 40 mg PO HS 12/30/23 02/22/24 ergocalciferol (vitamin D2) 1,250 1,250 mcg PO WEEKLY 02/22/24 02/22/24 mcg (50,000 unit) capsule Allergies Allergy/AdvReac Type Severity Reaction Status Date / Time naproxen AdvReac Gastrointestinal Verified 03/25/24 13:16 Upset Review of Systems Review of Systems: All systems reviewed & are unremarkable except as noted in HPI and below PMFSH Past Medical History Medical History (Updated 03/25/24 @ 17:18 by Herrera Dorsey III, DO) Anxiety Asthma Chronic back pain Neck and low back Chronic obstructive pulmonary disease Chronically dry eyes Degenerative disc disease, cervical C4-C7 Degenerative disc disease, lumbar L4-S1 Depression Former cigarette smoker Gastroesophageal reflux disease History of rhabdomyolysis December 2023 Irritable bowel syndrome Labral tear of right hip joint Spondylosis, lumbosacral Surgical History Surgical History (Updated 02/23/24 @ 02:40 by Ingrid Snell DO) History of section (2016) X1 History of cholecystectomy History of colonoscopy with polypectomy (~1999) History of right cataract surgery History of tonsillectomy Status post anal fissurectomy Family History Family History (Updated 02/23/24 @ 02:41 by Ingrid Snell DO) Father Diabetes mellitus Hypertension Mother Hypertension Osteoarthritis Rheumatoid arthritis Grandparent Breast cancer Sibling Lupus Social History Social History (Updated 02/23/24 @ 02:45 by Ingrid Snell DO) Social History: She is . She lives at home with her 7-year-old daughter she has 2 grown sons other well. She smoked 1 pack of cigarettes per day for twenty-two years but quit in 2020. She denies any significant alcohol use. She denies illicit substance use. She works at an [employer]. Surrogate medical decision maker: Flakito Phelan, son. Code status: Full code. Smoking packs per day: 1 Smoking cigarettes per day: 20.0 Years smoked: 22 Smoking pack-years: 22.00 Smoking status: Former smoker Tobacco type: e-cigarettes/vaping Alcohol intake: never Substance use: never Other substance usage details: denies IVDU Do You Feel Safe in your Home?: Yes Lack of Transportation: No Lack of Food: Never True Current Housing: I Have Housing Concerned About Future Housing: No Difficulty Paying Gas/Electric Bills: No Difficulty Paying for Meds: No Currently Unemployed: No Education: Trade/Vocational Certificate Difficulty w/ Childcare or Family Care: No Living arrangements: with family Additional living arrangements comments: sons and daughter Spiritual care concerns: No Exam Const: General: no acute distress Nutritional Appearance: well nourished Orientation/consciousness: patient oriented x3 Limitations: no limitations Chest: Chest palpation & inspection: normal inspection of the chest Resp: Effort & Inspection: normal respiratory effort Auscultation: clear to auscultation bilaterally
[2024-03-25 17:34] VITALS: BP 119/71; PULSE 79; RESP 16; TEMP 36.7; O2SAT 99
== END 2024-03-25 17:34 | disposition home or self-care (01) ==
PROVIDERS: Emergency Provider Emergency Medicine; PCP Family Medicine
DX: R07.89 Other chest pain (principal); J44.9 Chronic obstructive pulmonary disease, unspecified; M51.37 Other intervertebral disc degeneration, lumbosacral region; M50.320 Other cervical disc degeneration, mid-cervical region, unspecified level; K21.9 Gastro-esophageal reflux disease without esophagitis; K58.9 Irritable bowel syndrome, unspecified; Z86.711 Personal history of pulmonary embolism; Z87.891 Personal history of nicotine dependence; Z98.41 Cataract extraction status, right eye; Z90.49 Acquired absence of other specified parts of digestive tract; Z79.01 Long term (current) use of anticoagulants; Z79.899 Other long term (current) drug therapy
CPT/HCPCS: 36415; 71046; 71275; 80053; 85025; 93005; 96374; 99284; J2270; Q9967

== ENCOUNTER 2024-04-01 12:35 | Outpatient (CLI) | payer MEDICAID, SELFPAY ==
[2024-04-01 13:00] VITALS: PULSE 96; O2SAT 97
[2024-04-01 13:20] VITALS: PULSE 132; O2SAT 98
[2024-04-01 13:25] VITALS: PULSE 100; O2SAT 98
--- NOTE | 2024-04-01 13:32 | HOMEO2EVAL ---
Evaluation was performed at [facility] Home Oxygen Evaluation RC: Home Oxygen (O2) Evaluation Start: 04/01/24 13:30 Freq: Status: Active Protocol: RPE Activity Type Activity Date Activity User E-sign Co-sign Detail Recorded Client Recorded Date Recorded By Document 04/01/24 13:00 DJO [id number] 04/01/24 13:32 DJO Document 04/01/24 13:20 DJO [id number] 04/01/24 13:32 DJO Document 04/01/24 13:25 DJO [email or web address] 04/01/24 13:32 DJO 04/01/24 04/01/24 04/01/24 13:00 13:20 13:25 Home O2 Evaluation [Oxygen] -Test Phase Resting Exercise Resting -Oxygen Delivery Room Air Room Air Room Air [Pulse Oximetry] -Pulse Oximetry (90-100 %) 97 98 98 [Pulse Rate] -Pulse Rate (60-100 beats/min) 96 132 H 100 [Charges] -Evaluation Charges O2 Evaluation by Pulmonary
== END 2024-04-01 12:36 | disposition home or self-care (01) ==
PROVIDERS: PCP Family Medicine; Visit Provider Internal Medicine Pulmonary Disease
DX: I26.99 Other pulmonary embolism without acute cor pulmonale (principal)
CPT/HCPCS: 94618

== ENCOUNTER 2024-04-02 20:34 | Observation (INO) | payer MEDICAID, SELFPAY ==
[2024-04-02] VITALS (17 sets, daily range): BP systolic 107–164; BP diastolic 62–141; PULSE 59–81; RESP 12–18; TEMP 36.8; O2SAT 97–100
--- NOTE | ~2024-04-02 | XR_ITS ---
EXAMINATION: XR chest 1V DATE: 04/02/2024 21:14 INDICATION: Altered mental status TECHNIQUE: frontal view of the chest was obtained. COMPARISON: Chest radiograph dated 03/25/2024 FINDINGS: Decreased opacities posterior to the elevated right hemidiaphragm. Remainder of lungs are clear. No p ulmonary edema, pneumothorax or left pleural effusion. The cardiomediastinal silhouette is normal. Ch olecystectomy clips in right upper quadrant. IMPRESSION: 1. Interval decrease in opacities posterior to the right hemidiaphragm consistent with decreasing ate lectasis and/or pneumonia. Reviewed, dictated and finalized at location A. IMPRESSION: 1. Interval decrease in opacities posterior to the right hemidiaphragm consiste nt with decreasing atelectasis and/or pneumonia.
--- NOTE | ~2024-04-02 | CT_ITS ---
EXAMINATION: CT brain wo con DATE: 04/02/2024 21:11 INDICATION: Altered mental status TECHNIQUE: Computed tomography (CT) of the head was performed without intravenous contrast. Sagittal and coronal reconstructions were performed. The mA was adjusted according to patient size. Iterative reconstruction technique was employed. The dose-length product was 605.33 mGy-cm. COMPARISON: None FINDINGS: No acute intracranial hemorrhage, acute infarction or abnormal extra axial fluid collection. Ventricl es are normal and symmetric. No mass/mass effect. The orbits, paranasal sinuses and mastoid air cells are normal. IMPRESSION: 1. Normal head CT. Reviewed, dictated and finalized at location A. IMPRESSION: 1. Normal head CT.
--- NOTE | 2024-04-02 20:40 | ECG_ITS ---
Test Date: 2024-04-02 20:40:24 Measurements Intervals [place] Rate: 76 P: 38 WI: 136 QRS: 54 QRSD: 88 T: 43 QT: 377 QTc: 426 Interpretive Statements SINUS RHYTHM POSSIBLE LEFT ATRIAL ENLARGEMENT [-0.1mV P-WAVE IN V1/V2] OTHERWISE NORMAL ELECTROCARDIOGRAM Compared to ECG 03/25/2024 13:11:13 NO SIGNIFICANT CHANGE Electronically Signed On 04-03-2024 11:20:33 CDT by Eh Garcia M.D.
[2024-04-02 20:55] LABS: Basophils Percent Auto 0.2 % (0.2-1.2); Hematocrit 32.4 % (37.0-47.0); Hemoglobin 9.9 g/dL (12.0-15.0); Immature Granulocyte Absolute 0.14 K/mm3 (0.00-0.031); Lymphocytes Absolute Auto 1.79 K/mm3 (0.9-3.2); Lymphocytes Percent Auto 12.2 % (18.3-44.2); Mean Corpuscular HGB Conc 30.6 g/dl (32-36); Mean Corpuscular Hemoglobin 27.5 pg (26-34); Monocytes Absolute Auto 0.9 K/mm3 (0.1-0.6); Monocytes Percent Auto 6.4 % (2.6-8.5); Neutrophils Absolute Auto 11.8 K/mm3 (1.3-6.7); Neutrophils Percent Auto 80.2 % (45.5-73.1); Platelet Count Result 442 k/mm3 (150-375); Red Cell Distribution Width 18.6 % (11.5-14.5); White Blood Count 14.7 K/mm3 (4.5-10.0)
--- NOTE | 2024-04-02 21:01 | PCRCNOTE ---
Unable to draw abg as ordered, patient in CT scan.
[2024-04-02 21:07] LABS: Lactic Acid Reflex 0.7 mmol/L (0.7-2.0)
[2024-04-02 21:08] LABS: Prothrombin Time 14.1 Seconds (11.1-14.7)
[2024-04-02 21:09] LABS: Partial Thromboplastin Time 29.5 Seconds (22.3-36.8)
[2024-04-02 21:13] LABS: Alanine Aminotransferase 12 U/L (6-35); Albumin Level 4.9 g/dL (3.5-5.1); Alkaline Phosphatase 70 U/L (38-126); Anion Gap 13 mmol/L (4-12); Aspartate Amino Transferase 18 U/L (14-36); Bilirubin,Total 0.3 mg/dL (0.2-1.3); Blood Urea Nitrogen 17 mg/dL (7-17); Calcium 9.9 mg/dL (8.4-10.2); Carbon Dioxide 25 mmol/L (22-30); Chloride 101 mmol/L (98-107); Estimated CRCL calculation 80 ml/min; Estimated Glomerular Filt Rate > 60; Glucose 111 mg/dL (65-110); Magnesium 2.3 mg/dL (1.6-2.3); Potassium 3.8 mmol/L (3.4-5.0); Sodium 139 mmol/L (137-145)
[2024-04-02 21:18] LABS: Acetaminophen < 10 ug/mL (10-30); Ethanol < 10 mg/dL (<10); Salicylate 3.7 mg/dL (2-20)
[2024-04-02 21:24] LABS: Troponin I < 0.012 ng/mL (0.000-0.034)
[2024-04-02 21:27] LABS: Alveolar/Arterial O2 Gradient 19.9 mmHg; Base Excess ABG -0.2 mEq/l (+/-2.0); Fractional Inspired Oxygen 21 %; HCO3 ABG 23.8 mEq/l (22.0-26.0); Oxygen Content ABG 14.4 %vol (16.0-22.0); Oxygen Saturation ABG 96.9 % (95.0-100.0); Oxyhemoglobin 95.7 % THb (90.0-100.0); PCO2 ABG 36.3 mmHg (35.0-45.0); PO2 ABG 86.4 mmHg (80.0-100.0); PO2 FiO2 Ratio Arterial Blood 4.11 %; Total Hemoglobin 10.6 g/dL (12.0-18.0); pH ABG 7.434 (7.350-7.450)
[2024-04-02 21:28] LABS: Device ROOM AIR; Modified Allen's Test Pass; Site Drawn RIGHT RADIAL
--- NOTE | 2024-04-02 22:08 | ED.GENADULT ---
HPI - General Adult General Chief complaint: Altered Mental Status Stated complaint: DIFFICULT TO WAKE UP, NEW TO BACLOFEN Time Seen by Provider: 04/02/24 20:41 History of Present Illness HPI narrative: Patient is a 48-year-old female who presents emergency department with chief complaint of drowsiness. Patient was started on baclofen today by her primary care provider and reports that she was very difficult to wake up the patient states she has been shaky and reports that she just feels off. The patient denies chest pain shortness of breath Related Data Home Medications Medication Instructions Recorded Confirmed bupropion HCl 150 mg 24 hr tablet, 150 mg PO DAILY 09/06/22 02/22/24 extended release citalopram 40 mg tablet 40 mg PO DAILY 09/06/22 02/22/24 omeprazole 20 mg capsule,delayed 20 mg PO DAILY 10/23/22 02/22/24 release clonazepam 0.5 mg tablet 0.5 mg PO BID PRN Anxiety 03/22/23 02/22/24 gabapentin 100 mg capsule 300 mg PO TID 05/30/23 02/22/24 docusate sodium 100 mg capsule 100 mg PO BID 12/30/23 02/22/24 famotidine 40 mg tablet 40 mg PO HS 12/30/23 02/22/24 ergocalciferol (vitamin D2) 1,250 1,250 mcg PO WEEKLY 02/22/24 02/22/24 mcg (50,000 unit) capsule Allergies Allergy/AdvReac Type Severity Reaction Status Date / Time naproxen AdvReac Gastrointestinal Verified 03/25/24 13:16 Upset Review of Systems Review of Systems: A 10 system review of systems was completed on the patient and is negative except for what is stated in the HPI. Nursing and ancillary documentation was reviewed. COUNT INCLUDES THE [facility] Past Medical History Medical History Anxiety Asthma Chronic back pain Neck and low back Chronic obstructive pulmonary disease Chronically dry eyes Degenerative disc disease, cervical C4-C7 Degenerative disc disease, lumbar L4-S1 Depression Former cigarette smoker Gastroesophageal reflux disease History of rhabdomyolysis December 2023 Irritable bowel syndrome Labral tear of right hip joint Spondylosis, lumbosacral Surgical History Surgical History History of section (2017) X1 History of cholecystectomy History of colonoscopy with polypectomy (~1999) History of right cataract surgery History of tonsillectomy Status post anal fissurectomy Family History Family History Father Diabetes mellitus Hypertension Mother Hypertension Osteoarthritis Rheumatoid arthritis Grandparent Breast cancer Sibling Lupus Social History Social History Social History: She is . She lives at home with her 7-year-old daughter she has 2 grown sons other well. She smoked 1 pack of cigarettes per day for twenty-two years but quit in 2020. She denies any significant alcohol use. She denies illicit substance use. She works at an [employer]. Surrogate medical decision maker: Flakito Phelan, lon. Code status: Full code. Smoking packs per day: 1 Smoking cigarettes per day: 20.0 Years smoked: 22 Smoking pack-years: 22.00 Smoking status: Former smoker Tobacco type: e-cigarettes/vaping Alcohol intake: never Substance use: never Other substance usage details: denies IVDU Do You Feel Safe in your Home?: Yes Lack of Transportation: No Lack of Food: Never True Current Housing: I Have Housing Concerned About Future Housing: No Difficulty Paying Gas/Electric Bills: No Difficulty Paying for Meds: No Currently Unemployed: No Education: Trade/Vocational Certificate Difficulty w/ Childcare or Family Care: No Living arrangements: with family Additional living arrangements comments: sons and daughter Spiritual care concerns: No Exam Narrative: GENERAL: Well-appearing, well-nourishe
--- NOTE | 2024-04-02 22:50 | PC.NURSE ---
edp lipsmeyer to bedside as pt minimally reactive to sternal rub by PCT and this rn. Pt only twitching arms. EDP Lipsmeyer to order narcan.
[2024-04-02] MEDS: NALOXONE HCL 0.4 MG/ML VIAL IV PUSH (22:57)
[2024-04-02 23:05] LABS: Amphetamine Screen Urine Negative (Negative); Barbiturate Screen Urine Negative (Negative); Benzodiazepines Screen Urine Negative (Negative); Cannabinoid Screen Urine Positive (Negative); Cocaine Screen Urine Negative (Negative); Methadone Screen Urine Negative (Negative); Opiate Screen Urine Negative (Negative); Phencyclidine Screen Urine Negative (Negative)
[2024-04-02 23:19] LABS: BEDSIDEPREGUCG Negative
[2024-04-02 23:26] LABS: Add Urine Microscopic? YES; Appearance Urine Clear (Clear); Bacteria Urine None Seen /hpf; Bilirubin Urine Negative (Negative); Blood Urine Trace (Negative); Color Urine Yellow (Yellow); Glucose Urine UA Negative (Negative); Hyaline Casts Urine Present /lpf; Ketones Urine Negative (Negative); Leukocyte Esterase Ur Negative LEU/UL (Negative); Mucus Urine Present /lpf; Need Manual Microscopic Reviewed; Nitrate Urine Negative (Negative); Protein Urine Negative (Negative); Specific Grav Ur 1.022 (1.001-1.035); Squamous Epithelial Cell Urine None Seen /hpf (Few); Urobilinogen Urine 0.2 mg/dL (<2.0); WBC Urine 0-5 /hpf (0-3); pH Urine 5.5 (5.0-9.0)
[2024-04-03] VITALS (31 sets, daily range): BP systolic 101–160; BP diastolic 60–83; PULSE 55–85; RESP 10–22; TEMP 36.2–36.5; O2SAT 91–100; BMI 29.9
--- NOTE | 2024-04-03 03:00 | PC.NURSE ---
Pt offered hospital gown at this time. pt refused and requesting only a warm blanket. Warm blanket given and floor updated to not wanting a gown.
--- NOTE | 2024-04-03 03:51 | ADMGEN ---
This patient, Anat Phelan, was admitted to [facility] Surg Room 305-02. Patient/family oriented to hospital policies and general routines including ID bracelet, bed and alarms, visiting hours, pain management, procedures, bathroom and other care routines, personal items, smoking policy, room service/diet, and visiting hours. Information on how to activate the Rapid Response Team has been discussed. Patient/Family are encouraged to report perceived risks to care and to ask questions if they do not understand what they are told or what they should do.
--- NOTE | 2024-04-03 08:20 | PM.IMHP ---
H&P: HPI History of Present Illness Date/Time: 04/03/24 08:20 Chief Complaint: AMS, drowsiness Narrative: Patient is a 48-year-old female with PMH of Anxiety/depression, Asthma, Chronic back pain, COPD, Degenerative disc disease, cervical C4-C7, Degenerative disc disease, lumbar L4-S1and GERD admitted from home with chief complaint of drowsiness. She was recently seen in the ER on 03/25 given a recent PE diagnosis, now on Eliquis. She was recently treated with azithromycin for PNA when last presented to ER on 03/25. She currently denies chest pain or SOB. She was instructed to f/u with pulmonology at her last discharge in early March. Patient was started on baclofen on 04/02 by her primary care provider. She is not the best historian when it comes to her medications, and could not tell me the starting dose. She took her medication in the morning and her symptoms started approx. 8 hours later. She denies any THS use although present in her urine. She reports the tremor in her hands, worse in the right, started at work a few months ago but her PCP has not further evaluated. She has recently increased her Gabapentin to 600 mg TID. Will obtain a gabapentin level as this may be contributing to her symptoms. On admission, WBC of 14.7, hemoglobin 9.9. Electrolytes and ABG showed no acute abnormality. CXR and CT head were negative with no acute changes. lactic acid 0.7, troponin was less than 0.012, UA negative UDS - salicylate of 3.7, positive for THC and ETOH was negative. [facility] Past Medical History Medical History Anxiety Asthma Chronic back pain Neck and low back Chronic obstructive pulmonary disease Chronically dry eyes Degenerative disc disease, cervical C4-C7 Degenerative disc disease, lumbar L4-S1 Depression Former cigarette smoker Gastroesophageal reflux disease History of rhabdomyolysis December 2023 Irritable bowel syndrome Labral tear of right hip joint Spondylosis, lumbosacral Surgical History Surgical History History of section (2016) X1 History of cholecystectomy History of colonoscopy with polypectomy (~1999) History of right cataract surgery History of tonsillectomy Status post anal fissurectomy Family History Family History Father Diabetes mellitus Hypertension Mother Hypertension Osteoarthritis Rheumatoid arthritis Grandparent Breast cancer Sibling Lupus Social History Social History Social History: She is . She lives at home with her 7-year-old daughter she has 2 grown sons other well. She smoked 1 pack of cigarettes per day for twenty-two years but quit in 2020. She denies any significant alcohol use. She denies illicit substance use. She works at an [employer]. Surrogate medical decision maker: Flakito Phelan, son. Code status: Full code. Smoking packs per day: 1 Smoking cigarettes per day: 20.0 Years smoked: 22 Smoking pack-years: 22.00 Smoking status: Former smoker Alcohol intake: never Substance use: never Substance use type: marijuana Other substance usage details: denies IVDU Do You Feel Safe in your Home?: Yes Lack of Transportation: No Lack of Food: Never True Current Housing: I Have Housing Concerned About Future Housing: No Difficulty Paying Gas/Electric Bills: No Difficulty Paying for Meds: No Currently Unemployed: No Education: Trade/Vocational Certificate Difficulty w/ Childcare or Family Care: No Living arrangements: with family Additional living arrangements comments: sons and daughter Spiritual care concerns: No Meds Home Medications and Allergies Home Medications Medication Instructions Recorded Confirmed Type bupropion HCl 150 mg 24 hr tablet, 150 mg P
[2024-04-03 08:39] LABS: Basophils Absolute Auto 0.1 K/mm3 (0.0-0.1); Basophils Percent Auto 0.5 % (0.2-1.2); Eosinophils Percent Auto 0.4 % (0-4.4); Hematocrit 32.3 % (37.0-47.0); Hemoglobin 9.6 g/dL (12.0-15.0); Immature Granulocyte Absolute 0.13 K/mm3 (0.00-0.031); Immature Granulocyte Percent A 1.2 % (0-0.5); Lymphocytes Absolute Auto 2.74 K/mm3 (0.9-3.2); Mean Corpuscular HGB Conc 29.7 g/dl (32-36); Mean Corpuscular Hemoglobin 27.1 pg (26-34); Mean Corpuscular Volume 91.2 fl (80-100); Mean Platelet Volume 8.9 fl (7.4-10.4); Monocytes Absolute Auto 1.1 K/mm3 (0.1-0.6); Monocytes Percent Auto 9.7 % (2.6-8.5); Neutrophils Percent Auto 63.2 % (45.5-73.1); Platelet Count Result 391 k/mm3 (150-375); Red Blood Count 3.54 M/mm3 (4.2-5.4); Red Cell Distribution Width 18.6 % (11.5-14.5)
[2024-04-03 08:50] LABS: Anion Gap 10 mmol/L (4-12); Blood Urea Nitrogen 23 mg/dL (7-17); Calcium 9.3 mg/dL (8.4-10.2); Carbon Dioxide 28 mmol/L (22-30); Chloride 102 mmol/L (98-107); Estimated CRCL calculation 90 ml/min; Estimated Glomerular Filt Rate > 60; Glucose 87 mg/dL (65-110); Potassium 4.1 mmol/L (3.4-5.0); Sodium 140 mmol/L (137-145)
[2024-04-03] MEDS: APIXABAN 5 MG TABLET PO ×2 (09:11→20:40)
[2024-04-03] MEDS: FUROSEMIDE 20 MG TABLET PO (09:11)
[2024-04-03] MEDS: POLYSACCHARIDE IRON COMPLEX 150 MG CAPSULE PO ×2 (09:11→16:02)
[2024-04-03] MEDS: buPROPion HCL XL (24 HR) 150 MG TABCR PO (09:11)
[2024-04-03] MEDS: CITALOPRAM HYDROBROMIDE 20 MG TABLET 40 MG PO (09:12)
[2024-04-03] MEDS: PANTOPRAZOLE 40 MG TABLET PO (09:12)
[2024-04-03] MEDS: ACETAMINOPHEN 325 MG TABLET 650 MG PO ×2 (09:12→13:19)
[2024-04-03] MEDS: DOCUSATE SODIUM 100 MG CAPSULE PO ×2 (09:12→16:02)
[2024-04-03 09:32] LABS: Platelet Estimate Slightly Increased (Adequate)
[2024-04-03 09:33] LABS: Anisocytosis 1+; Hypochromasia 1+
[2024-04-03 09:34] LABS: Schistocytes None Seen
[2024-04-03] MEDS: ALBUTEROL SULFATE (*SP) AEROSOL 1 PUFF 2 PUFF INHALATION (10:07)
[2024-04-03 12:59] LABS: Folic Acid 9.4 ng/mL (2.76->20)
[2024-04-03] MEDS: GABAPENTIN 300 MG CAPSULE PO ×2 (13:20→20:40)
[2024-04-03] MEDS: HYDROcodone/acetaminophen (*CRX) 10-325 MG TABLET 1 TAB PO ×2 (16:02→22:26)
[2024-04-04] VITALS: PULSE 79
[2024-04-04 04:00] VITALS: PULSE 68
[2024-04-04 05:36] VITALS: BP 130/65; PULSE 68; RESP 16; TEMP 35.7; O2SAT 97
[2024-04-04] MEDS: GABAPENTIN 300 MG CAPSULE PO (05:41)
[2024-04-04 05:42] LABS: Hematocrit 33.6 % (37.0-47.0); Hemoglobin 9.9 g/dL (12.0-15.0); Mean Corpuscular HGB Conc 29.5 g/dl (32-36); Mean Corpuscular Hemoglobin 26.9 pg (26-34); Mean Corpuscular Volume 91.3 fl (80-100); Mean Platelet Volume 9.1 fl (7.4-10.4); Platelet Count Result 396 k/mm3 (150-375); Red Blood Count 3.68 M/mm3 (4.2-5.4); Red Cell Distribution Width 18.2 % (11.5-14.5); White Blood Count 7.9 K/mm3 (4.5-10.0)
[2024-04-04] MEDS: HYDROcodone/acetaminophen (*CRX) 10-325 MG TABLET 1 TAB PO (05:42)
[2024-04-04 05:58] LABS: Anion Gap 8 mmol/L (4-12); Blood Urea Nitrogen 21 mg/dL (7-17); Calcium 9.2 mg/dL (8.4-10.2); Carbon Dioxide 29 mmol/L (22-30); Chloride 99 mmol/L (98-107); Estimated CRCL calculation 90 ml/min; Estimated Glomerular Filt Rate > 60; Glucose 86 mg/dL (65-110); Potassium 3.7 mmol/L (3.4-5.0); Sodium 136 mmol/L (137-145)
--- NOTE | 2024-04-04 06:40 | PC.NURSE ---
On 04/04/24, the [employer], [ Daisha], provided care and completed [email or web address] documentation on this patient. I have reviewed the [employer]'s documentation and agree with the findings.
[2024-04-04] MEDS: FUROSEMIDE 20 MG TABLET PO (08:11)
[2024-04-04] MEDS: POLYSACCHARIDE IRON COMPLEX 150 MG CAPSULE PO (08:11)
[2024-04-04] MEDS: buPROPion HCL XL (24 HR) 150 MG TABCR PO (08:11)
[2024-04-04] MEDS: APIXABAN 5 MG TABLET PO (08:11)
[2024-04-04] MEDS: PANTOPRAZOLE 40 MG TABLET PO (08:11)
[2024-04-04] MEDS: DOCUSATE SODIUM 100 MG CAPSULE PO (08:11)
[2024-04-04] MEDS: CITALOPRAM HYDROBROMIDE 20 MG TABLET 40 MG PO (08:11)
--- NOTE | 2024-04-04 13:38 | PM.DS ---
DS: Admitting Diagnosis Discharge Date 04/04/2024 Admitting Diagnosis AMS, drowsiness DS: Discharge Diagnosis Discharge Diagnosis (1) Accidental overdose: Code(s): T50.901A - Poisoning by unspecified drugs, medicaments and biological substances, accidental (unintentional), initial encounter Status: Acute (2) Chronic back pain: Code(s): M54.9 - Dorsalgia, unspecified; G89.29 - Other chronic pain Status: Chronic (3) Gastroesophageal reflux disease: Qualifiers: Esophagitis presence: esophagitis presence not specified Qualified Code(s): K21.9 - Gastro-esophageal reflux disease without esophagitis Code(s): K21.9 - Gastro-esophageal reflux disease without esophagitis Status: Chronic (4) Chronic obstructive pulmonary disease: Qualifiers: COPD type: unspecified COPD Qualified Code(s): J44.9 - Chronic obstructive pulmonary disease, unspecified Code(s): J44.9 - Chronic obstructive pulmonary disease, unspecified Status: Chronic (5) PE (pulmonary thromboembolism): Code(s): I26.99 - Other pulmonary embolism without acute cor pulmonale Status: Acute DS: Summary Hospital Course Hospital Course: Patient is a 48-year-old female with PMH of Anxiety/depression, Asthma, Chronic back pain, COPD, Degenerative disc disease, cervical C4-C7, Degenerative disc disease, lumbar L4-S1and GERD admitted from home with chief complaint of drowsiness. She was recently seen in the ER on 03/25 given a recent PE diagnosis, now on Eliquis. She was recently treated with azithromycin for PNA when last presented to ER on 03/25. She currently denies chest pain or SOB. She was instructed to f/u with pulmonology at her last discharge in early March. Patient was started on baclofen on 04/02 by her primary care provider. She is not the best historian when it comes to her medications, and could not tell me the starting dose. She took her medication in the morning and her symptoms started approx. 8 hours later. She denies any THS use although present in her urine. She reports the tremor in her hands, worse in the right, started at work a few months ago but her PCP has not further evaluated. She has recently increased her Gabapentin to 600 mg TID. Will obtain a gabapentin level as this may be contributing to her symptoms. On admission, WBC of 14.7, hemoglobin 9.9. Electrolytes and ABG showed no acute abnormality. CXR and CT head were negative with no acute changes. lactic acid 0.7, troponin was less than 0.012, UA negative UDS - salicylate of 3.7, positive for THC and ETOH was negative. today patient is more alert and oriented, patient continue to have tremors in right arm which are chronic however worsen during recently and under stress, patient stats feels better and wants to go home, her some is present in the room and feels comfortable to his mom home, with understanding if the symptoms redevelop or get worsen to bring back to the ER. Patient will follow up with the neurologist and her primary care provider. Time Spent with Patient Time attestation: Total time spent providing and/or coordinating discharge services: Exam Narrative: Patient is comfortable, NAD HEENT: eyes are clear and none icteric LUNGS:CTA HEART: RR S1S2 ABD: BS+, Soft and nontender Lower extremities: no edema SKIN: nonjaundiced Neuro: grossly intact. patient has resting tremors in right arm. DS: Data Data Completed and Pending Labs on day of discharge: Labs from last 24 hours 04/04/24 04/03/24 05:38 10:13 WBC 7.9 RBC 3.68 L Hgb 9.9 L Hct 33.6 L MCV 91.3 MCH 26.9 MCHC 29.5 L RDW 18.2 H Plt Count 396 H MPV 9.1 Sodium 136 L Potassium 3.7 Chloride 99 Carbon Dioxide 29 Anion Gap 8 BUN 21 H Creatinine 0.70 Estim Creat Clear Calc 90 Estimated GFR > 60 Glucose 86 Calcium 9.2 Procalcitonin 0.0 Discharge Plan Discharge Attending physician on
[2024-04-08 16:58] LABS: Gabapentin 4.8 mcg/mL
== END 2024-04-04 14:05 | disposition home or self-care (01) ==
LOC: ANHED 04-03 02:22 → ANH3MEDSUR 04-03 03:22
PROVIDERS: Emergency Medicine; Nurse Practitioner; Admitting Provider Internal Medicine; Emergency Provider Emergency Medicine; PCP Family Medicine; Visit Provider Family Medicine
DX: T50.901A Poisoning by unspecified drugs, medicaments and biological substances, accidental (unintentional), initial encounter (principal); R41.82 Altered mental status, unspecified; M54.9 Dorsalgia, unspecified; I26.99 Other pulmonary embolism without acute cor pulmonale; J44.9 Chronic obstructive pulmonary disease, unspecified; R25.1 Tremor, unspecified; M47.812 Spondylosis without myelopathy or radiculopathy, cervical region; F41.9 Anxiety disorder, unspecified; F32.A Depression, unspecified; K21.9 Gastro-esophageal reflux disease without esophagitis; Z87.891 Personal history of nicotine dependence; Z79.01 Long term (current) use of anticoagulants; Z79.51 Long term (current) use of inhaled steroids; Z79.891 Long term (current) use of opiate analgesic
CPT/HCPCS: 36415; 36600; 70450; 71045; 80048; 80053; 80171; 80307; 81001; 81025; 82607; 82746; 82805; 83605; 83735; 84145; 84443; 84484; 85025; 85027; 85610; 85730; 93005; 94640; 96374; 99285; A9270; G0378; J2310

== ENCOUNTER 2024-04-09 15:23 | Emergency (ER) | payer MEDICAID, SELFPAY ==
--- NOTE | ~2024-04-09 | CT_ITS ---
CTA chest PE protocol Ordering provider: Alexx Cordoba MD History: 48 years Female with . Hemoptysis . Comparison: None. Technique: CT angiogram chest was performed following timed intravenous injection of contrast. Thin s lice axial images and reformatted coronal images were obtained. Three dimensional reformatted images of the chest were also obtained using a [employer] W[employer] workstation. . Automated exposure control and iterati ve reconstruction technique were employed. The dose-length product was 329.15 mGy-cm. 100 mL Omnipaqu e 350 was given IV. Findings: PULMONARY ARTERIES: No pulmonary embolus. VISUALIZED THORACIC INLET: Normal. MEDIASTINUM: Aorta/coronary arteries: The thoracic aorta is normal. Heart/other: The heart is not enlarged. Lymph nodes: No mediastinal or hilar adenopathy. The esophagus is filled with fluids clinical evaluation advised. LUNGS: Infiltrate in the middle lobe is noted suggestive of pneumonia. Atelectatic changes versus pneumonia in the right lung base posteriorly with minimal effusion. Dependent atelectatic changes. No pulmonary nodules or masses. No effusions. No pneumothorax. VISUALIZED UPPER ABDOMEN: Status post cholecystectomy. Otherwise, the visualized upper abdomen is normal. MUSCULOSKELETAL: Soft tissues: The superficial soft tissues are normal. Bones: Age appropriate degenerative changes of the spine. IMPRESSION: 1. No pulmonary embolism. 2. Infiltrate in the middle lobe suggestive of pneumonia. 3. Opacification in the right lower lobe posteriorly suggestive of atelectasis versus pneumonia with adjacent effusion Reviewed, dictated and finalized at location A.
[2024-04-09 15:25] VITALS: BP 136/84; PULSE 81; RESP 16; TEMP 36.4; O2SAT 95
[2024-04-09 16:01] VITALS: PULSE 92; RESP 17
[2024-04-09 16:05] VITALS: PULSE 92
[2024-04-09 16:07] VITALS: O2SAT 98
[2024-04-09 16:26] LABS: Basophils Absolute Auto 0.1 K/mm3 (0.0-0.1); Basophils Percent Auto 0.7 % (0.2-1.2); Eosinophils Absolute Auto 0.4 K/mm3 (0-0.3); Eosinophils Percent Auto 2.8 % (0-4.4); Hematocrit 35.9 % (37.0-47.0); Hemoglobin 10.7 g/dL (12.0-15.0); Immature Granulocyte Absolute 0.19 K/mm3 (0.00-0.031); Immature Granulocyte Percent A 1.4 % (0-0.5); Lymphocytes Absolute Auto 1.64 K/mm3 (0.9-3.2); Lymphocytes Percent Auto 12.5 % (18.3-44.2); Mean Corpuscular HGB Conc 29.8 g/dl (32-36); Mean Corpuscular Hemoglobin 27.4 pg (26-34); Mean Corpuscular Volume 92.1 fl (80-100); Mean Platelet Volume 9.9 fl (7.4-10.4); Monocytes Absolute Auto 1.3 K/mm3 (0.1-0.6); Neutrophils Absolute Auto 9.5 K/mm3 (1.3-6.7); Neutrophils Percent Auto 72.6 % (45.5-73.1); Platelet Count Result 369 k/mm3 (150-375); Red Cell Distribution Width 17.6 % (11.5-14.5); White Blood Count 13.2 K/mm3 (4.5-10.0)
--- NOTE | 2024-04-09 16:33 | ED.GENADULT ---
HPI - General Adult General Chief complaint: Shortness of Breath/Dyspnea Stated complaint: shortness of breath Time Seen by Provider: 04/09/24 15:46 History of Present Illness HPI narrative: 48-year-old female presenting to the emergency department for evaluation for hemoptysis. Patient is currently on Eliquis for history of pulmonary embolisms. Patient states she was just discharged from the hospital and since has had worsening shortness of breath. Patient was discharged from the hospital with a persistent tremor and her right hand. Patient is going to have follow-up with neurology for this. Patient states that the tremor has been unchanged. Patient was concerned about the hemoptysis so she presented to the emergency department for further workup. Patient appears to be in no distress at time of evaluation. Related Data Home Medications Medication Instructions Recorded Confirmed bupropion HCl 150 mg 24 hr tablet, 150 mg PO DAILY 09/06/22 04/09/24 extended release citalopram 40 mg tablet 40 mg PO DAILY 09/06/22 04/09/24 omeprazole 20 mg capsule,delayed 20 mg PO DAILY 10/23/22 04/09/24 release clonazepam 0.5 mg tablet 0.5 mg PO BID PRN Anxiety 03/22/23 04/09/24 docusate sodium 100 mg capsule 100 mg PO BID 12/30/23 04/09/24 famotidine 40 mg tablet 40 mg PO HS 12/30/23 04/09/24 ergocalciferol (vitamin D2) 1,250 1,250 mcg PO WEEKLY 02/22/24 04/09/24 mcg (50,000 unit) capsule apixaban 5 mg tablet (Eliquis) 5 mg PO Q12HR 04/03/24 04/09/24 furosemide 20 mg tablet 20 mg PO DAILY 04/03/24 04/09/24 baclofen 5 mg tablet 5 mg PO DAILY 04/08/24 04/09/24 Allergies Allergy/AdvReac Type Severity Reaction Status Date / Time naproxen AdvReac Gastrointestinal Verified 04/09/24 15:29 Upset Review of Systems Review of Systems: All systems reviewed & are unremarkable except as noted in HPI and below PMFSH Past Medical History Medical History Anxiety Asthma Chronic back pain Neck and low back Chronic obstructive pulmonary disease Chronically dry eyes Degenerative disc disease, cervical C4-C7 Degenerative disc disease, lumbar L4-S1 Depression Former cigarette smoker Gastroesophageal reflux disease History of rhabdomyolysis December 2023 Irritable bowel syndrome Labral tear of right hip joint Spondylosis, lumbosacral Surgical History Surgical History History of section (2016) X1 History of cholecystectomy History of colonoscopy with polypectomy (~1999) History of right cataract surgery History of tonsillectomy Status post anal fissurectomy Family History Family History Father Diabetes mellitus Hypertension Mother Hypertension Osteoarthritis Rheumatoid arthritis Grandparent Breast cancer Sibling Lupus Social History Social History Social History: She is . She lives at home with her 7-year-old daughter she has 2 grown sons other well. She smoked 1 pack of cigarettes per day for twenty-two years but quit in 2020. She denies any significant alcohol use. She denies illicit substance use. She works at an [employer]. Surrogate medical decision maker: Flakito Phelan, son. Code status: Full code. Smoking packs per day: 1 Smoking cigarettes per day: 20.0 Years smoked: 22 Smoking pack-years: 22.00 Smoking status: Former smoker Alcohol intake: never Substance use: never Substance use type: marijuana Other substance usage details: denies IVDU Do You Feel Safe in your Home?: Yes Lack of Transportation: No Lack of Food: Never True Current Housing: I Have Housing Concerned About Future Housing: No Difficulty Paying Gas/Electric Bills: No Difficulty Paying for Meds: No Currently Unemployed: No Education: Trade/Vocational Certi
[2024-04-09] MEDS: LORazepam INJ (*CRX) 2 MG/ML VIAL 1 MG IV PUSH (16:34)
[2024-04-09 16:37] LABS: INR 1.1; Prothrombin Time 14.1 Seconds (11.1-14.7)
[2024-04-09 16:38] LABS: Alanine Aminotransferase 18 U/L (6-35); Albumin Level 4.7 g/dL (3.5-5.1); Alkaline Phosphatase 74 U/L (38-126); Anion Gap 13 mmol/L (4-12); Aspartate Amino Transferase 27 U/L (14-36); Bilirubin,Total 0.6 mg/dL (0.2-1.3); Blood Urea Nitrogen 18 mg/dL (7-17); Calcium 9.5 mg/dL (8.4-10.2); Carbon Dioxide 29 mmol/L (22-30); Chloride 96 mmol/L (98-107); Estimated CRCL calculation 81 ml/min; Estimated Glomerular Filt Rate > 60; Glucose 118 mg/dL (65-110); Potassium 3.6 mmol/L (3.4-5.0); Sodium 138 mmol/L (137-145)
[2024-04-09 16:42] LABS: Influenza A QL RT-PCR Negative (Negative); Influenza B QL RT-PCR Negative (Negative); RSV RNA, RT-PCR Negative (Negative); SARS-CoV-2 RNA PCR Negative (Negative)
[2024-04-09] MEDS: AMOXICILLIN/CLAVULANATE K 875-125 MG TAB 1 TABLET PO (17:44)
[2024-04-09] MEDS: AZITHROMYCIN 250 MG TABLET 500 MG PO (17:44)
[2024-04-09 18:00] VITALS: PULSE 72; RESP 16; O2SAT 95
== END 2024-04-09 18:08 | disposition home or self-care (01) ==
PROVIDERS: Emergency Provider Emergency Medicine; PCP Family Medicine
DX: J18.9 Pneumonia, unspecified organism (principal); R04.2 Hemoptysis; Z20.822 Contact with and (suspected) exposure to COVID-19; R25.1 Tremor, unspecified; J44.9 Chronic obstructive pulmonary disease, unspecified; K58.9 Irritable bowel syndrome, unspecified; K21.9 Gastro-esophageal reflux disease without esophagitis; M51.36 Other intervertebral disc degeneration, lumbar region; M50.30 Other cervical disc degeneration, unspecified cervical region; F32.A Depression, unspecified; F41.9 Anxiety disorder, unspecified; Z86.711 Personal history of pulmonary embolism; Z87.891 Personal history of nicotine dependence; Z90.49 Acquired absence of other specified parts of digestive tract; Z98.41 Cataract extraction status, right eye; Z79.01 Long term (current) use of anticoagulants; Z79.899 Other long term (current) drug therapy
CPT/HCPCS: 36415; 71275; 80053; 85025; 85610; 85730; 87637; 96374; 99284; A9270; J2060; Q9967

== ENCOUNTER 2024-05-07 12:39 | Outpatient (CLI) | payer OTHER, SELFPAY ==
[2024-05-07 13:00] VITALS: PULSE 75; O2SAT 98
[2024-05-07 13:05] VITALS: PULSE 92; O2SAT 96
[2024-05-07 13:15] VITALS: PULSE 76; O2SAT 97
--- NOTE | 2024-05-07 13:21 | HOMEO2EVAL ---
Evaluation was performed at [facility] Home Oxygen Evaluation RC: Home Oxygen (O2) Evaluation Start: 05/07/24 13:19 Freq: Status: Active Protocol: RPE Activity Type Activity Date Activity User E-sign Co-sign Detail Recorded Client Recorded Date Recorded By Document 05/07/24 13:00 [email or web address] [email or web address] 05/07/24 13:21 DJO Document 05/07/24 13:05 [email or web address] [email or web address] 05/07/24 13:21 DJO Document 05/07/24 13:15 [email or web address] [email or web address] 05/07/24 13:21 DJO 05/07/24 05/07/24 05/07/24 13:00 13:05 13:15 Home O2 Evaluation [Oxygen] -Test Phase Resting Exercise Resting -Oxygen Delivery Room Air Room Air Room Air [Pulse Oximetry] -Pulse Oximetry (90-100 %) 98 96 97 [Pulse Rate] -Pulse Rate (60-100 beats/min) 75 92 76 [Evaluation] -Activity Tolerance Excellent [Exercise] -Ambulation Distance (feet) 1,000 -Ambulation Distance (meters) 304.78 [Charges] -Evaluation Charges O2 Evaluation by Pulmonary
--- NOTE | 2024-05-08 07:12 | WPDPFTINT ---
PFT Procedure Performed PFT Procedure Performed Spirometry with Pre/Post Bronchodilator Plethysmography (Lung Vol) Diffusing Cap (DLCO) Flow Vol Loop PFT Interpretation This is a pulmonary function test with pre and post-bronchodilator spirometry, plethysmography and diffusing capacity. The test was performed and results interpreted in accordance with the 2019 and 2005 ATS/ERS Task Force guidelines respectively using the Global Lung Function Initiative-2012 reference equations. Patient demonstrated good effort and cooperation. Reproducibility criteria were met. The quality of the pre bronchodilator spirometry maneuver was Grade A and post bronchodilator spirometry maneuver was Grade A. Findings: Spirometry: The contour the inspiratory and expiratory flow tracing are normal. The pre bronchodilator FVC is 3.14 L, 86% predicted. The pre bronchodilator FEV1 is 2.24 L, 76% predicted. The pre bronchodilator FEV1: FVC ratio is 71%. The post bronchodilator FVC is 2.97 L, representing a 6% decrease. The post bronchodilator FEV1 is 2.20 L, representing a 2% decrease. The post bronchodilator FEV1: FVC ratio is 74%. Plethysmography: The total lung capacity is 4.30 L, 83% predicted. The functional residual capacity is 2.10 L, 72% predicted. The residual volume is 1.16 L, 65% predicted. Diffusing capacity: The diffusing capacity unadjusted for hemoglobin and carboxyhemoglobin is 17.2, 73% predicted. The diffusing capacity adjusted for alveolar volume is 4.12, 90% predicted. Impression: The spirometry is normal without evidence of an obstructive abnormality. The lung volumes are normal without evidence of and restrictive abnormality. The FVC is normal and the FEV1 is mildly decreased without an obstructive or restrictive abnormality. This is an abnormal but nonspecific finding. There is no significant improvement after inhaling a single dose of albuterol. The diffusing capacity is normal. There are no prior studies for comparison
== END 2024-05-07 12:40 | disposition home or self-care (01) ==
LOC: ANHPFT 12:41
PROVIDERS: PCP Family Medicine; Visit Provider Internal Medicine Pulmonary Disease
DX: I26.99 Other pulmonary embolism without acute cor pulmonale (principal); J18.9 Pneumonia, unspecified organism
CPT/HCPCS: 94060; 94618; 94726; 94729

== ENCOUNTER 2024-05-15 10:36 | Emergency (ER) | payer OTHER, SELFPAY ==
--- NOTE | 2024-05-15 10:57 | ED.URI ---
HPI - URI/Sore Throat General Chief Complaint: Upper Respiratory Infection Stated Complaint: fever + sore throat Time Seen by Provider: 05/15/24 11:05 Source: patient, RN notes reviewed and old records reviewed Mode of arrival: ambulatory Limitations: no limitations History of Present Illness HPI Narrative: 48-year-old female who presents to [facility] with complaints of productive cough of greenish phlegm, sore throat hoarseness fevers up to 101F yesterday with some right ear pain today. Patient reports that she has been taking Tylenol and DayQuil and has used her inhaler for her symptoms. MD elicited complaint: fever, cough, sore throat and other (ear pain right) Onset (ago): day(s) (3) Pain scale (0-10): 6 Treatments prior to arrival: acetaminophen and other (DayQuil and inhaler) Related Data Home Medications Medication Instructions Recorded Confirmed bupropion HCl 150 mg 24 hr tablet, 150 mg PO DAILY 09/06/22 05/15/24 extended release citalopram 40 mg tablet 40 mg PO DAILY 09/06/22 05/15/24 omeprazole 20 mg capsule,delayed 20 mg PO DAILY 10/23/22 05/15/24 release clonazepam 0.5 mg tablet 0.5 mg PO BID PRN Anxiety 03/22/23 05/15/24 docusate sodium 100 mg capsule 100 mg PO BID 12/30/23 05/15/24 famotidine 40 mg tablet 40 mg PO HS 12/30/23 05/15/24 ergocalciferol (vitamin D2) 1,250 1,250 mcg PO WEEKLY 02/22/24 05/15/24 mcg (50,000 unit) capsule apixaban 5 mg tablet (Eliquis) 5 mg PO Q12HR 04/03/24 05/15/24 furosemide 20 mg tablet 20 mg PO DAILY 04/03/24 05/15/24 acetaminophen 500 mg capsule 500 mg PO .TID-QID 04/30/24 05/15/24 baclofen 5 mg tablet 5 mg PO TID 04/30/24 05/15/24 gabapentin 600 mg tablet 600 mg PO TID 04/30/24 05/15/24 Allergies Allergy/AdvReac Type Severity Reaction Status Date / Time naproxen AdvReac Gastrointestinal Verified 05/15/24 11:00 Upset Review of Systems Review of Systems: CONSTITUTIONAL: Reports malaise, chills, sweats, or fever. EYES: Denies visual changes, redness, or discharge. ENT: Reports rhinorrhea, congestion, sinus pain, right otalgia and positive for sore throat and hoarseness CARDIOVASCULAR: Denies chest pain, palpitations, or edema. RESPIRATORY: Reports cough.? Denies dyspnea. GASTROINTESTINAL: Denies abdominal pain, nausea, vomiting, diarrhea SKIN: Denies rash or itching. MUSCULOSKELETAL: Denies myalgia. NEUROLOGIC: positive for headache. All systems reviewed & are unremarkable except as noted in HPI and below PMFSH Past Medical History Medical History Acid reflux Acute hypokalemia Acute hypoxic respiratory failure Anxiety Appetite loss Asthma Chronic back pain Neck and low back Chronic obstructive pulmonary disease Chronically dry eyes Constipation Degenerative disc disease, cervical C4-C7 Degenerative disc disease, lumbar L4-S1 Depression Diarrhea Former cigarette smoker Gastroesophageal reflux disease Generalized weakness History of rhabdomyolysis December 2023 Irritable bowel syndrome Labral tear of right hip joint Left sided abdominal pain Nausea Pneumonia Sepsis Smoker Spondylosis, lumbosacral Surgical History Surgical History History of section (2016) X1 History of cholecystectomy History of colonoscopy with polypectomy (~1999) History of right cataract surgery History of tonsillectomy Status post anal fissurectomy Family History Family History Father Diabetes mellitus Hypertension Mother Hypertension Osteoarthritis Rheumatoid arthritis Grandparent Breast cancer Sibling Lupus Social History Social History Social History: She is . She lives at home with her 7-year-old daughter she has 2 grown sons other well. She smoked 1 pack of cigarettes per day for twenty-two
[2024-05-15 11:05] VITALS: BP 128/75; PULSE 79; RESP 18; TEMP 36.4; O2SAT 100
[2024-05-15 11:35] LABS: EDSTREPNEGPOS1 Negative (Negative)
[2024-05-15 12:45] LABS: EDCOVIDSCREEN Negative (Negative)
== END 2024-05-15 11:29 | disposition home or self-care (01) ==
PROVIDERS: Emergency Provider Registered Nurse; PCP Family Medicine
DX: H66.91 Otitis media, unspecified, right ear (principal); R05.9 Cough, unspecified; Z20.822 Contact with and (suspected) exposure to COVID-19; Z87.891 Personal history of nicotine dependence; K21.9 Gastro-esophageal reflux disease without esophagitis; J44.9 Chronic obstructive pulmonary disease, unspecified; M50.320 Other cervical disc degeneration, mid-cervical region, unspecified level; M51.36 Other intervertebral disc degeneration, lumbar region
CPT/HCPCS: 87081; 87635; 87880; 99213; G0463

== ENCOUNTER 2024-06-01 10:51 | Inpatient (IN) | payer OTHER, SELFPAY ==
[2024-06-01] VITALS (10 sets, daily range): BP systolic 119–136; BP diastolic 71–94; PULSE 87–106; RESP 12–22; TEMP 36.2–36.8; O2SAT 86–99
--- NOTE | ~2024-06-01 | XR_ITS ---
Clinical Indication: Shortness of breath PA and lateral views of the chest: Comparison: 04/02/2024 Findings: There is hazy right basilar and right perihilar airspace disease. Left lung clear.. Cardio mediastinal silhouette is within normal limits. Bones and soft tissues are unremarkable. Impression: Probable right perihilar pneumonia. Reviewed, dictated and finalized at location . Impression: Probable right perihilar pneumonia.
--- NOTE | ~2024-06-01 | CT_ITS ---
EXAMINATION: CT brain wo con DATE: 06/01/2024 15:14 INDICATION: AMS . TECHNIQUE: Computed tomography (CT) of the head was performed without intravenous contrast. The mA wa s adjusted according to patient size. Iterative reconstruction technique was employed. The dose-lengt h product was 1210.67 mGy-cm. COMPARISON: 04/02/2024. FINDINGS: Motion limited examination. No acute intracranial hemorrhage or extra-axial fluid collection. No hydrocephalus, mass, or herniation. No acute ischemic infarct. Unremarkable dural venous sinus attenuation. No acute osseous abnormality. The aerated spaces are clear. Left lens replacement IMPRESSION: No acute intracranial process. Reviewed, dictated and finalized at location K.
--- NOTE | 2024-06-01 13:11 | ECG_ITS ---
Test Date: 2024-06-01 13:16:11 Measurements Intervals [place] Rate: 94 P: 64 HI: 125 QRS: 60 QRSD: 89 T: 49 QT: 325 QTc: 408 Interpretive Statements SINUS RHYTHM NONSPECIFIC ST-T WAVE ABNORMALITY- INFERIOR LEADS BASELINE ARTIFACT- II, III, AVL, AVF BORDERLINE ECG Compared to ECG 04/02/2024 20:40:24 ST-T WAVE ABNORMALITY NOW PRESENT Electronically Signed On 06-01-2024 13:47:44 CDT by Fermin Forman D.O.
[2024-06-01] MEDS: ALBUTEROL SULFATE NEB 2.5 MG/3 ML INH INHALATION ×2 (14:07→20:14)
--- NOTE | 2024-06-01 14:43 | ED.GENADULT ---
HPI - General Adult General Chief complaint: Recheck/Abnormal Lab/Rx Stated complaint: reports low O2 level thinks she aspirated in sleep Time Seen by Provider: 06/01/24 13:37 History of Present Illness HPI narrative: 48-year-old female history of COPD that uses oxygen at nighttime presents to the emergency department for concern of possible aspiration pneumonia. Patient states she woke up and did have some emesis on her shirt. Patient states she has increased shortness of breath, increased chest congestion and has been using her oxygen today-which she typically only has to use at nighttime. Patient is somnolent but does awaken to voice. Patient is having some right arm twitching which she states that is not new-patient has had extensive workup for the tremor including an MRI. Patient does have history of accidental overdose from the combined ingestion gabapentin and opiates. Patient does take baclofen, clonazepam and history of opiate use. Patient denies any current opiate use. Related Data Home Medications Medication Instructions Recorded Confirmed bupropion HCl 150 mg 24 hr tablet, 150 mg PO DAILY 09/06/22 06/01/24 extended release citalopram 40 mg tablet 40 mg PO DAILY 09/06/22 06/01/24 omeprazole 20 mg capsule,delayed 20 mg PO DAILY 10/23/22 06/01/24 release clonazepam 0.5 mg tablet 0.5 mg PO BID PRN Anxiety 03/22/23 06/01/24 docusate sodium 100 mg capsule 100 mg PO BID 12/30/23 06/01/24 famotidine 40 mg tablet 40 mg PO HS 12/30/23 06/01/24 ergocalciferol (vitamin D2) 1,250 1,250 mcg PO WEEKLY 02/22/24 06/01/24 mcg (50,000 unit) capsule apixaban 5 mg tablet (Eliquis) 5 mg PO Q12HR 04/03/24 06/01/24 acetaminophen 500 mg capsule 500 mg PO .TID-QID 04/30/24 06/01/24 baclofen 5 mg tablet 5 mg PO TID 04/30/24 06/01/24 prednisone 20 mg tablet 5 mg PO DAILY 06/01/24 06/01/24 Allergies Allergy/AdvReac Type Severity Reaction Status Date / Time naproxen AdvReac Gastrointestinal Verified 06/01/24 18:00 Upset PMF Past Medical History Medical History Acid reflux Acute hypokalemia Acute hypoxic respiratory failure Anxiety Appetite loss Asthma Chronic back pain Neck and low back Chronic obstructive pulmonary disease Chronically dry eyes Constipation Degenerative disc disease, cervical C4-C7 Degenerative disc disease, lumbar L4-S1 Depression Diarrhea Former cigarette smoker Gastroesophageal reflux disease Generalized weakness History of rhabdomyolysis December 2023 Irritable bowel syndrome Labral tear of right hip joint Left sided abdominal pain Nausea Pneumonia Sepsis Smoker Spondylosis, lumbosacral Surgical History Surgical History History of section (2016) X1 History of cholecystectomy History of colonoscopy with polypectomy (~1999) History of right cataract surgery History of tonsillectomy Status post anal fissurectomy Family History Family History Father Diabetes mellitus Hypertension Mother Hypertension Osteoarthritis Rheumatoid arthritis Grandparent Breast cancer Sibling Lupus Social History Social History Social History: She is . She lives at home with her 7-year-old daughter she has 2 grown sons other well. She smoked 1 pack of cigarettes per day for twenty-two years but quit in 2020. She denies any significant alcohol use. She denies illicit substance use. She works at an [employer]. Surrogate medical decision maker: Flakito Phelan, son. Code status: Full code. Smoking packs per day: 1 Smoking cigarettes per day: 20.0 Years smoked: 22 Smoking pack-years: 22.00 Smoking status: Never smoker Alcohol intake: never Substance use: never Substance use type: does not use Other substance usage
[2024-06-01 14:54] LABS: Alveolar/Arterial O2 Gradient 85.5 mmHg; Base Excess ABG 5.8 mEq/l (+/-2.0); Carboxyhemoglobin 0.6 % THb (0-2.0); Fractional Inspired Oxygen 28 %; HCO3 ABG 30.3 mEq/l (22.0-26.0); Methemoglobin ABG 0.1 %THb (0-1.5); Oxygen Content ABG 14.1 %vol (16.0-22.0); Oxygen Saturation ABG 92.9 % (95.0-100.0); Oxyhemoglobin 91.6 % THb (90.0-100.0); PCO2 ABG 43.8 mmHg (35.0-45.0); PO2 ABG 62.5 mmHg (80.0-100.0); PO2 FiO2 Ratio Arterial Blood 2.23 %; Reduced Hemoglobin 7.7 %THb (0-5.0); Total Hemoglobin 10.9 g/dL (12.0-18.0); pH ABG 7.458 (7.350-7.450)
[2024-06-01 14:56] LABS: Device NASAL CANNULA; Modified Allen's Test Pass; Site Drawn RIGHT RADIAL
[2024-06-01 14:57] LABS: Influenza A QL RT-PCR Negative (Negative); Influenza B QL RT-PCR Negative (Negative); RSV RNA, RT-PCR Negative (Negative); SARS-CoV-2 RNA PCR Negative (Negative)
[2024-06-01 15:15] LABS: Basophils Absolute Auto 0.1 K/mm3 (0.0-0.1); Basophils Percent Auto 0.6 % (0.2-1.2); Eosinophils Absolute Auto 0.2 K/mm3 (0-0.3); Eosinophils Percent Auto 1.6 % (0-4.4); Hematocrit 32.7 % (37.0-47.0); Hemoglobin 10.1 g/dL (12.0-15.0); Immature Granulocyte Percent A 0.9 % (0-0.5); Lymphocytes Absolute Auto 1.16 K/mm3 (0.9-3.2); Lymphocytes Percent Auto 9.9 % (18.3-44.2); Mean Corpuscular HGB Conc 30.9 g/dl (32-36); Mean Corpuscular Hemoglobin 29.3 pg (26-34); Mean Corpuscular Volume 94.8 fl (80-100); Mean Platelet Volume 9.9 fl (7.4-10.4); Monocytes Absolute Auto 1.2 K/mm3 (0.1-0.6); Monocytes Percent Auto 9.8 % (2.6-8.5); Neutrophils Absolute Auto 9.1 K/mm3 (1.3-6.7); Neutrophils Percent Auto 77.2 % (45.5-73.1); Nucleated Red Blood Cells Perc 0.4 % (0.0-0.2); Platelet Count Result 375 k/mm3 (150-375); Red Blood Count 3.45 M/mm3 (4.2-5.4); Red Cell Distribution Width 16.3 % (11.5-14.5); White Blood Count 11.7 K/mm3 (4.5-10.0)
[2024-06-01 15:26] LABS: Alanine Aminotransferase 27 U/L (6-35); Albumin Level 3.6 g/dL (3.5-5.1); Alkaline Phosphatase 65 U/L (38-126); Aspartate Amino Transferase 31 U/L (14-36); Bilirubin,Total 0.4 mg/dL (0.2-1.3); Blood Urea Nitrogen 23 mg/dL (7-17); Calcium 8.6 mg/dL (8.4-10.2); Carbon Dioxide > 40 mmol/L (22-30); Chloride 91 mmol/L (98-107); Estimated CRCL calculation 73 ml/min; Estimated Glomerular Filt Rate > 60; Glucose 92 mg/dL (65-110); Potassium 3.2 mmol/L (3.4-5.0); Sodium 135 mmol/L (137-145)
[2024-06-01] MEDS: AZITHROMYCIN 500 MG/NS 250 ML 500 MG/250 ML BAG 250 MG IVPB (16:12)
[2024-06-01 16:29] LABS: Amphetamine Screen Urine Negative (Negative); Barbiturate Screen Urine Negative (Negative); Benzodiazepines Screen Urine Negative (Negative); Cannabinoid Screen Urine Negative (Negative); Cocaine Screen Urine Negative (Negative); Methadone Screen Urine Negative (Negative); Opiate Screen Urine Positive (Negative); Phencyclidine Screen Urine Negative (Negative)
--- NOTE | 2024-06-01 17:58 | ADMGEN ---
This patient, Anat Phelan, was admitted to [facility] Surg Room 328-01. Patient/family oriented to hospital policies and general routines including ID bracelet, bed and alarms, visiting hours, pain management, procedures, bathroom and other care routines, personal items, smoking policy, room service/diet, and visiting hours. Information on how to activate the Rapid Response Team has been discussed. Patient/Family are encouraged to report perceived risks to care and to ask questions if they do not understand what they are told or what they should do.
[2024-06-01] MEDS: metroNIDAZOLE 500 MG/ISO 100ML 500 MG/100 ML BAG 100 MG IVPB (18:23)
[2024-06-02 02:43] VITALS: PULSE 100; RESP 22
[2024-06-02] MEDS: ALBUTEROL SULFATE NEB 2.5 MG/3 ML INH INHALATION ×2 (02:43→08:10)
[2024-06-02 02:50] VITALS: PULSE 108; RESP 22
[2024-06-02] MEDS: ACETAMINOPHEN 325 MG TABLET 650 MG PO (03:29)
[2024-06-02 05:44] VITALS: BP 136/68; PULSE 107; RESP 20; TEMP 37.3; O2SAT 99
[2024-06-02 08:10] VITALS: PULSE 97; RESP 20; O2SAT 94
[2024-06-02 08:24] VITALS: PULSE 94; RESP 20
--- NOTE | 2024-06-02 09:13 | PM.IMPN ---
Progress Note: A&P Assessment and Plan (1) Aspiration pneumonia: Code(s): J69.0 - Pneumonitis due to inhalation of food and vomit Status: Acute (2) Hypoxia: Code(s): R09.02 - Hypoxemia Status: Acute (3) History of tobacco use: Code(s): Z87.891 - Personal history of nicotine dependence Status: Acute Plan Accidental drug overdose, polypharmacy, aspiration pneumonia, COPD, hypoxia Time Spent With Patient Time with patient: Greater than 35 minutes Subjective Date/time seen: 06/02/24 09:13 Interval history: Abnormal Lab/Rx Stated complaint: reports low O2 level thinks she aspirated in sleep HPI narrative: 48-year-old female history of COPD that uses oxygen at nighttime presents to the emergency department for concern of possible aspiration pneumonia. Patient states she woke up and did have some emesis on her shirt. Patient states she has increased shortness of breath, increased chest congestion and has been using her oxygen today-which she typically only has to use at nighttime. Patient is somnolent but does awaken to voice. Patient is having some right arm twitching which she states that is not new-patient has had extensive workup for the tremor including an MRI. Patient does have history of accidental overdose from the combined ingestion gabapentin and opiates. Patient does take baclofen, clonazepam and history of opiate use. Patient denies any current opiate use. ED work up: evaluation for possible aspiration pneumonia. Patient does have a new O2 requirement. Chest x-ray was concerning for pneumonia. Patient was started on Rocephin, azithromycin and Flagyl. Cultures are pending. Patient is afebrile but does have a leukocytosis of 11.7 a stable hemoglobin of 10.1. Hemoglobin is similar to her previous baseline. ABG was ordered and does show hypoxia and patient were remain on oxygen. Patient is not retaining pCO2. Patient was negative for influenza RSV and for COVID. Head CT was negative for any acute intracranial abnormality. Case was discussed with hospitalist patient was accepted for admission to a medical bed. Prior to going to the floor patient is still somnolent but easily awakes to verbal stimuli. Patient is still saturating well on 2 L of oxygen by nasal cannula. No evidence of respiratory distress. Objective Data Vital Signs Vital Signs: Vital Signs - 24 hr 06/01/24 10:54 06/01/24 13:11 06/01/24 13:11 Temperature 97.1 F L Pulse Rate 102 H 96 Respiratory Rate 18 13 Blood Pressure 123/71 119/88 Pulse Oximetry 95 86 L 93 Oxygen Delivery Oxygen Flow Rate 06/01/24 14:07 06/01/24 14:19 06/01/24 14:00 Temperature Pulse Rate 102 H 99 Respiratory Rate 22 H 22 H Blood Pressure Pulse Oximetry 95 Oxygen Delivery Nasal Cannula Oxygen Flow Rate 2 06/01/24 15:00 06/01/24 16:15 06/01/24 20:20 Temperature Pulse Rate 88 92 Respiratory Rate 12 17 Blood Pressure 123/72 135/72 Pulse Oximetry 99 99 93 Oxygen Delivery Nasal Cannula Oxygen Flow Rate 2 06/01/24 20:20 06/01/24 20:25 06/01/24 21:12 Temperature 98.3 F Pulse Rate 87 91 106 H Respiratory Rate 20 20 20 Blood Pressure 136/94 H Pulse Oximetry 95 Oxygen Delivery Oxygen Flow Rate 06/02/24 02:43 06/02/24 02:50 06/02/24 05:44 Temperature 99.2 F Pulse Rate 100 108 H 107 H Respiratory Rate 22 H 22 H 20 Blood Pressure 136/68 Pulse Oximetry 99 Oxygen Delivery Oxygen Flow Rate 06/02/24 08:10 06/02/24 08:10 06/02/24 08:24 Temperature Pulse Rate 97 94 Respiratory Rate 20 20 Blood Pressure Pulse Oximetry 94 Oxygen Delivery Nasal Cannula Oxygen Flow Rate 2 Intake/Output Intake/Output: Intake & Output 05/30/24 05/31/24 06/01/24 06/02/24 23:59 23:59 23:59 23:59 Intake Total 300 850 Balance 300 850 Meds/Results Medications: Active Medications Generic Name Dose Route Start Last Admin Trade Name Eliezer
[2024-06-02] MEDS: PANTOPRAZOLE SODIUM IV 40 MG VIAL IV PUSH (09:34)
--- NOTE | 2024-06-02 12:44 | PM.SD2 ---
Same Day Admit/Disch: HPI History of Present Illness Chief complaint: COPD/Aspiration Pneumonia/Polypharmacy Narrative: Abnormal Lab/Rx Stated complaint: reports low O2 level thinks she aspirated in sleep HPI narrative: 48-year-old female history of COPD that uses oxygen at nighttime presents to the emergency department for concern of possible aspiration pneumonia. Patient states she woke up and did have some emesis on her shirt. Patient states she has increased shortness of breath, increased chest congestion and has been using her oxygen today-which she typically only has to use at nighttime. Patient is somnolent but does awaken to voice. Patient is having some right arm twitching which she states that is not new-patient has had extensive workup for the tremor including an MRI. Patient does have history of accidental overdose from the combined ingestion gabapentin and opiates. Patient does take baclofen, clonazepam and history of opiate use. Patient denies any current opiate use. ED work up: evaluation for possible aspiration pneumonia. Patient does have a new O2 requirement. Chest x-ray was concerning for pneumonia. Patient was started on Rocephin, azithromycin and Flagyl. Cultures are pending. Patient is afebrile but does have a leukocytosis of 11.7 a stable hemoglobin of 10.1. Hemoglobin is similar to her previous baseline. ABG was ordered and does show hypoxia and patient were remain on oxygen. Patient is not retaining pCO2. Patient was negative for influenza RSV and for COVID. Head CT was negative for any acute intracranial abnormality. Case was discussed with hospitalist patient was accepted for admission to a medical bed. Prior to going to the floor patient is still somnolent but easily awakes to verbal stimuli. Patient is still saturating well on 2 L of oxygen by nasal cannula. No evidence of respiratory distress. 06/02- pt is seen and examined at the bedside. Pt is pleasant and reports no acute issues during exam. Denies use any narcotics, or any drugs. Does not smoke or drink. She reports having an aspiration in the past when she waited too long to come to the hospital and got septic. This time, she did not want to wait too long. Pt was seen and examined and all of her history and med list were reviewed. Then I received a call from a nurse saying that pt is upset that we are not doing anything for her and wants to leave AMA. She is aware that she needs antibiotics and she is getting them IV- but leaving anyway. She signed out AMA despite all efforts from nursing staff to encourage her to stay to continue her therapy for aspiration pneumonia. We will send her a script for aspiration pneumonia. [facility] Past Medical History Medical History Acid reflux Acute hypokalemia Acute hypoxic respiratory failure Anxiety Appetite loss Asthma Chronic back pain Neck and low back Chronic obstructive pulmonary disease Chronically dry eyes Constipation Degenerative disc disease, cervical C4-C7 Degenerative disc disease, lumbar L4-S1 Depression Diarrhea Former cigarette smoker Gastroesophageal reflux disease Generalized weakness History of rhabdomyolysis December 2023 Irritable bowel syndrome Labral tear of right hip joint Left sided abdominal pain Nausea Pneumonia Sepsis Smoker Spondylosis, lumbosacral Surgical History Surgical History History of section (2016) X1 History of cholecystectomy History of colonoscopy with polypectomy (~1999) History of right cataract surgery History of tonsillectomy Status post anal fissurectomy Family History Family History Father Diabetes mellitus Hypertension Mother Hypertension Osteoarthritis Rheumatoid arthritis Grandparent Breast cancer Sibling Lupus Social History Social History (Reviewed
--- NOTE | 2024-06-10 08:52 | PC.NURSE ---
Blood cx are negative.
== END 2024-06-02 12:42 | disposition left against medical advice (07) | DRG 137 ==
LOC: ANHED 16:11 → ANH3MEDSUR 16:45
PROVIDERS: Admitting Provider General Practice; Emergency Provider Emergency Medicine; PCP Family Medicine; Visit Provider Nurse Practitioner
DX: J69.0 Pneumonitis due to inhalation of food and vomit (principal); R09.02 Hypoxemia; J44.9 Chronic obstructive pulmonary disease, unspecified; M50.30 Other cervical disc degeneration, unspecified cervical region; M51.369 Other intervertebral disc degeneration, lumbar region without mention of lumbar back pain or lower extremity pain; K21.9 Gastro-esophageal reflux disease without esophagitis; K58.9 Irritable bowel syndrome, unspecified; Z90.49 Acquired absence of other specified parts of digestive tract; Z87.891 Personal history of nicotine dependence; Z98.41 Cataract extraction status, right eye
CPT/HCPCS: 36415; 36600; 70450; 71046; 80053; 80307; 82375; 82805; 82810; 83050; 85018; 85025; 87040; 87637; 93005; 94640; 96365; 96367; 96375; 99285; A9270; G0378; G0379; J0456; J0696; J1836; J2470

== ENCOUNTER 2024-06-09 09:45 | Outpatient (CLI) | payer OTHER, SELFPAY ==
--- NOTE | ~2024-06-09 | XR_ITS ---
Clinical Indication: Pneumonitis PA and lateral views of the chest: Comparison: 06/01/2024 Findings: Pulmonary airspace disease is markedly improved from prior exam. Cardiomediastinal silhoue tte is within normal limits. Bones and soft tissues are unremarkable. Impression: Marked improvement in pulmonary airspace disease in the right lung. This is consistent with improving pneumonia. Reviewed, dictated and finalized at location . Impression: Marked improvement in pulmonary airspace disease in the right lung. This is con sistent with improving pneumonia.
== END 2024-06-09 09:46 | disposition home or self-care (01) ==
PROVIDERS: PCP Family Medicine; Visit Provider Family Medicine
DX: J69.0 Pneumonitis due to inhalation of food and vomit (principal)
CPT/HCPCS: 71046

== ENCOUNTER 2024-06-10 01:27 | Day surgery (SDC) | payer OTHER, SELFPAY ==
--- NOTE | 2024-06-04 08:48 | PC.NURSE ---
Spoke with Antoinette at Dr. Gonzalez's office. Dr. Gonzalez has received clearance forms and will return forms today.
[2024-06-05 09:29] VITALS: BMI 30.7
[2024-06-10 11:35] VITALS: BP 121/70; PULSE 93; RESP 18; TEMP 36.3; O2SAT 97
[2024-06-10] MEDS: LACTATED RINGERS 1,000 ML 150 ML IV CONT (11:41)
--- NOTE | 2024-06-10 12:12 | WPDANESEPPF ---
Anes - Initial Pre Proc Eval Procedure: Operation Date: 06/10/24 13:00 Proposed Procedures p Esophagogastroduodenoscopy & Colonoscopy - Dean Hyman MD Date/Time: 06/10/24 12:12 Surgeon: Dean Hyman MD Pre Op Diagnosis: abn finding diag imaging, anemia, nausea,dysphagia Patient Data Age: 48 Gender: F Height: 1.65 m Weight: 85.6 kg Last Vital Signs Temp 97.3 F L 06/10/24 11:35 Pulse 93 06/10/24 11:35 Resp 18 06/10/24 11:35 BP 121/70 06/10/24 11:35 Pulse Ox 97 06/10/24 11:35 O2 Del Method Room Air 06/10/24 11:35 Allergies Allergy/AdvReac Type Severity Reaction Status Date / Time naproxen AdvReac Gastrointestinal Verified 06/10/24 11:32 Upset Home Medications Medication Instructions Recorded Confirmed Type bupropion HCl 150 mg 24 hr tablet, 150 mg PO DAILY 09/06/22 06/10/24 History extended release citalopram 40 mg tablet 40 mg PO DAILY 09/06/22 06/10/24 History albuterol sulfate 90 mcg/actuation 2 puff inhalation Q4-6H PRN 10/23/22 06/10/24 Rx aerosol inhaler shortness of breath or wheezing 30 days #8.5 grams omeprazole 20 mg capsule,delayed 20 mg PO DAILY 10/23/22 06/10/24 History release clonazepam 0.5 mg tablet 0.5 mg PO BID PRN Anxiety 03/22/23 06/10/24 History docusate sodium 100 mg capsule 100 mg PO BID 12/30/23 06/10/24 History famotidine 40 mg tablet 40 mg PO HS 12/30/23 06/10/24 History ergocalciferol (vitamin D2) 1,250 1,250 mcg PO WEEKLY 02/22/24 06/10/24 History mcg (50,000 unit) capsule polysaccharide iron complex 150 mg 150 mg PO BIDWM #60 caps 03/03/24 06/10/24 Rx iron capsule apixaban 5 mg tablet (Eliquis) 5 mg PO Q12HR 04/03/24 06/10/24 History umeclidinium 62.5 mcg-vilanterol 1 inh inhalation DAILY #60 ea 04/08/24 06/10/24 Rx 25 mcg/actuation powdr for inhalation acetaminophen 500 mg capsule 500 mg PO .TID-QID 04/30/24 06/10/24 History baclofen 5 mg tablet 5 mg PO TID 04/30/24 06/10/24 History furosemide 20 mg tablet 20 mg PO DAILY #30 tabs 05/21/24 06/10/24 Rx Patient hx anesthesia problems: none Family hx anesthesia problems: none Results Review: All pre-operative results and documents have been reviewed as part of the pre-operative evaluation. [facility] Past Medical History Medical History Acid reflux Acute hypokalemia Acute hypoxic respiratory failure Anxiety Appetite loss Asthma Chronic back pain Neck and low back Chronic obstructive pulmonary disease Chronically dry eyes Constipation Degenerative disc disease, cervical C4-C7 Degenerative disc disease, lumbar L4-S1 Depression Diarrhea Former cigarette smoker Gastroesophageal reflux disease Generalized weakness History of rhabdomyolysis December 2023 Irritable bowel syndrome Labral tear of right hip joint Left sided abdominal pain Nausea Pneumonia Sepsis Smoker Spondylosis, lumbosacral Surgical History Surgical History History of section (2016) X1 History of cholecystectomy History of colonoscopy with polypectomy (~1999) History of right cataract surgery History of tonsillectomy Status post anal fissurectomy Family History Family History Father Diabetes mellitus Hypertension Mother Hypertension Osteoarthritis Rheumatoid arthritis Grandparent Breast cancer Sibling Lupus Social History Social History Social History: She is . She lives at home with her 7-year-old daughter she has 2 grown sons other well. She smoked 1 pack of cigarettes per day for twenty-two years but quit in 2020. She denies any significant alcohol use. She denies illicit substance use. She works at an [employer]. Surrogate medical decision maker: Flakito Phelan, son. Code status: Full code.
--- NOTE | 2024-06-10 12:36 | PM.HPGS ---
History of Present Illness History of Present Illness Consent: Risks, benefits, and alternatives have been discussed and questions answered. Patient agrees to proceed with procedure. Chief complaint: abn finding diag imaging, anemia, nausea,dysphagia Narrative: Anat Phelan is a 48 year old female here for egd and colonoscopy, she has been having nausea and choking sensation, also constipation on colace, last colonoscopy ~ 6 years ago Review of Systems Review of Systems: All systems reviewed & are unremarkable except as noted in HPI and below PMFSH Past Medical History Medical History (Updated 06/10/24 @ 12:39 by Dean Hyman MD) Acid reflux Acute hypokalemia Acute hypoxic respiratory failure Anxiety Appetite loss Asthma Chronic back pain Neck and low back Chronic obstructive pulmonary disease Chronically dry eyes Colon cancer screening Constipation Constipation Degenerative disc disease, cervical C4-C7 Degenerative disc disease, lumbar L4-S1 Depression Diarrhea Former cigarette smoker Gastroesophageal reflux disease Generalized weakness History of rhabdomyolysis December 2023 Irritable bowel syndrome Labral tear of right hip joint Left sided abdominal pain Nausea Pneumonia Sepsis Smoker Spondylosis, lumbosacral Surgical History Surgical History History of section (2016) X1 History of cholecystectomy History of colonoscopy with polypectomy (~1999) History of right cataract surgery History of tonsillectomy Status post anal fissurectomy Family History Family History Father Diabetes mellitus Hypertension Mother Hypertension Osteoarthritis Rheumatoid arthritis Grandparent Breast cancer Sibling Lupus Social History Social History Social History: She is . She lives at home with her 7-year-old daughter she has 2 grown sons other well. She smoked 1 pack of cigarettes per day for twenty-two years but quit in 2020. She denies any significant alcohol use. She denies illicit substance use. She works at an [employer]. Surrogate medical decision maker: Flakito Phelan, son. Code status: Full code. Smoking packs per day: 1 Smoking cigarettes per day: 20.0 Years smoked: 22 Smoking pack-years: 22.00 Smoking status: Former smoker Tobacco type: cigarettes Alcohol intake: never Substance use: never Substance use type: does not use Other substance usage details: denies IVDU Do You Feel Safe in your Home?: Yes Lack of Transportation: No Lack of Food: Never True Current Housing: I Have Housing Concerned About Future Housing: No Difficulty Paying Gas/Electric Bills: No Difficulty Paying for Meds: No Currently Unemployed: No Education: Don't Know Difficulty w/ Childcare or Family Care: No Living arrangements: with family Additional living arrangements comments: sons and daughter Spiritual care concerns: No Meds Home Medications and Allergies Home Medications Medication Instructions Recorded Confirmed Type bupropion HCl 150 mg 24 hr tablet, 150 mg PO DAILY 09/06/22 06/10/24 History extended release citalopram 40 mg tablet 40 mg PO DAILY 09/06/22 06/10/24 History albuterol sulfate 90 mcg/actuation 2 puff inhalation Q4-6H PRN 10/23/22 06/10/24 Rx aerosol inhaler shortness of breath or wheezing 30 days #8.5 grams omeprazole 20 mg capsule,delayed 20 mg PO DAILY 10/23/22 06/10/24 History release clonazepam 0.5 mg tablet 0.5 mg PO BID PRN Anxiety 03/22/23 06/10/24 History docusate sodium 100 mg capsule 100 mg PO BID 12/30/23 06/10/24 History famotidine 40 mg tablet 40 mg PO HS 12/30/23 06/10/24 History ergocalciferol (vitamin D2) 1,250 1,250 mcg PO WEEKLY 02/22/24 06/10/24 History mcg (50,000 unit) capsule polysacchari
--- NOTE | 2024-06-10 12:53 | SUR.OPER ---
EGD end time: 1248, Colonoscopy start time: 1253
[2024-06-10 13:04] VITALS: BP 94/56; PULSE 81; RESP 16; O2SAT 95
[2024-06-10 13:14] VITALS: BP 98/58; PULSE 77; RESP 19; O2SAT 94
[2024-06-10 13:24] VITALS: BP 110/64; PULSE 68; RESP 13; O2SAT 95
--- NOTE | 2024-06-10 13:35 | SUR.PHASEII ---
Confirmed with Dr. Mills that patient can restart her Eliquis tomorrow.
== END 2024-06-10 13:37 | disposition home or self-care (01) ==
PROVIDERS: PCP Family Medicine; Referring Provider Family Medicine; Visit Provider Internal Medicine Gastroenterology
PROC: 0DJ08ZZ Inspection of Upper Intestinal Tract, Via Natural or Artificial Opening Endoscopic (ICD-10-PCS; CPT 43235; principal; 2024-06-10 13:00)
DX: K29.70 Gastritis, unspecified, without bleeding (principal); K21.9 Gastro-esophageal reflux disease without esophagitis; R13.10 Dysphagia, unspecified; K57.30 Diverticulosis of large intestine without perforation or abscess without bleeding; K64.8 Other hemorrhoids; J44.9 Chronic obstructive pulmonary disease, unspecified; F41.9 Anxiety disorder, unspecified; Z87.891 Personal history of nicotine dependence; Z79.01 Long term (current) use of anticoagulants; Z79.51 Long term (current) use of inhaled steroids; E66.9 Obesity, unspecified; Z68.31 Body mass index [BMI] 31.0-31.9, adult
CPT/HCPCS: 45378; 43239; 88305; 88313; 88342; J2003; J2704; J7120

== ENCOUNTER 2024-08-15 07:48 | Outpatient (CLI) | payer OTHER, SELFPAY ==
--- NOTE | ~2024-08-15 | MM_ITS ---
EXAMINATION: MM screening [facility] BI w angel HISTORY: Screening TECHNIQUE: Craniocaudal and mediolateral oblique 3-D tomosynthesis images were obtained and synthetic 2-D images were generated. CAD analysis was submitted and interpreted. COMPARISON: Comparison to multiple prior studies sequentially, with oldest reviewed study dated 10/15. BREAST PARENCHYMAL COMPOSITION: Not dense: There are scattered areas of fibroglandular density. FINDINGS: There is no evidence of suspicious mass, calcification, or architectural distortion to sugg est malignancy in either breast. There has been no suspicious interval change. IMPRESSION: 1. No mammographic evidence of malignancy. 2. Recommend routine screening mammography in one year. BI-RADS Category 1: Negative Reviewed, dictated and finalized at location B. [employer]
--- OUTSIDE RECORDS SUMMARY | 2024-08-18 21:34 | XMS_ITS | Encounter Summary ---
Author Organization [facility] Address [address] [place] [address] Care Team Providers Care Physical Therapist Center Manager Name Role Phone Kendrick Chacon MD Primary Care Provider [phone] Reason for Visit * Reason Onset Date Comments Refill Request 03/25/2023 Encounter Details Date Type Department Care Team (Late st Contact Info) Description 03/25/2023 Telephone [facility] - Endocrinology [address] [place] [address], [place] [id number] Froylan Valle MD [address] [place] [id number] Refill Request Social History Tobacco Use Types Packs/Day Years Used Date Smoking Tobacco: Every Day Cigarettes Smokeless Tobacco: Never Alcohol Use Standard Drinks/Week Comments No 0 (1 standard drink = 0.6 oz pur e alcohol) Sex and Gender Information Value Date Recorded Sex Assigned at Not on file Gender Identity Not on file Sexual Orientation Not on file documented as of this encounter Miscellaneous Notes * Telephone Encounter - Eric Merida MA - 03/25/2023 1:25 PM CDT Spoke to andres from the pharmacy. To let them know the patient needs to come in for a visit to get arefill on Pred. 5mg. Andres stated that the patient is already getting 20mg pred prescribed to her from another physician. documented in this encounter Plan of Treatment Not on file documented as of this encounter Visit Diagnoses Not on filedocumented in this encounter Care Teams Physical Therapist Center Manager Relationship Specialty Start Date End Date Kendrick Chacon MD [address] [place] [id number] PCP - General 04/03/21 documented as of this encounter
--- OUTSIDE RECORDS SUMMARY | 2024-08-18 21:34 | XMS_ITS | Clinical Summary ---
Author Organization [facility] Address [address] [place] [address] Care Team Providers Care Ski Maker Name Role Phone Kendrick Chacon MD Primary Care Provider [phone] Source Comments [facility],non-owned Affiliates and Associated Physician Practices is amultiple site organization consisting of ambulatory clinics and hospital sitesin [place], [place], [place] and [place]. This disclosure is being madepursuant to the Care Everywhere program and may not contain all information available regarding this patient. Last updated 18.[facility] Allergies No known active allergies Medications * Be aware that medications may not be up to date on this document. Alwaysverify current medications with the patient. Medication Sig Dispensed Refills Start Date End Date Status famotidine (PEPCID) 40 MG tablet Take 40 mg by mouth 2 times daily Active iron polysaccharides (NIFEREX 150) 150 MG capsule Take 150 mg by mouth once daily Active albuterol HFA (PROAIR HFA) 108 (90 BASE) MCG/ACT inhaler Inhale 2 Puffs by mouth every 6 hours as needed 1 Inhaler 3 01/01/2017 Active Flunisolide HFA (AEROSPAN) 80 MCG/ACT Inhale 2 Puffs by mouth 2 times daily 1 Inhaler 1 01/03/2017 Active omeprazole (PRILOSEC) 20 MG capsule Take 20 mg by mouth once daily Active citalopram (CELEXA) 20 MG tablet 04/13/2020 Active clonazePAM (KLONOPIN) 0.5 MG tablet Take 0.5 mg by mouth once daily as needed 03/26/2021 Active cyclobenzaprine (FLEXERIL) 10 MG tablet Take 10 mg by mouth nightly as needed 03/17/2021 Active meloxicam (MOBIC) 7.5 MG tablet Take 7.5 mg by mouth 2 times daily as needed 03/26/2021 Active tolterodine ER 24hr (DETROL LA) 4 MG capsule Take 4 mg by mouth once daily 03/02/2021 Active fluticasone-salmeterol 113-14 MCG/ACT inhaler Inhale 1 puff by mouth 2 times daily Active vitamin D, ergocalciferol, (DRISDOL) 1.25 MG (01611 UT) capsule TAKE 1 CAPSULE BY MOUTH WEEKLY 07/12/2021 Active predniSONE (Deltasone) 5 MG tabletIndications:Adren al insufficiency (HCC) TAKE 1 TABLET BY MOUTH EVERY DAY 90 tablet 11 03/26/2023 Active Active Problems Problem Noted Date Diagnosed Date Adrenal insufficiency 04/19/2021 Prior with demise 01/30/2017 Supervision of high-risk of elderly mu ltigravida 01/29/2017 Encounter for anatomic survey 01/29/2017 Resolved Problems Problem Noted Date Diagnosed Date Resolved Date Viral pneumonia 01/01/2017 01/29/2017 Family History Medical History Relation Name Comments Diabetes; unknown type Father High Blood Pressure Father Thyroid Disease Father Arthritis - Rheumatoid Mother High Blood Pressure Mother Other Mother Thyroid Disease Mother Arthritis - Rheumatoid Other Other Other Thyroid Disease Other Relation Name Status Comments Father Mother Other Social History Tobacco Use Types Packs/Day Years Used Date Smoking Tobacco: Every Day Cigarettes Smokeless Tobacco: Never Tobacco Cessation:Ready to Q uit: Yes; Counseling Given: Yes Alcohol Use Standard Drinks/Week Comments No 0 (1 standard drink = 0.6 oz pur e alcohol) Sex and Gender Information Value Date Recorded Sex Assigned at Not on file Gender Identity Not on file Sexual Orientation Not on file Last Filed Vital Signs Vital Sign Reading Time Taken Comments Blood Pressure 120/78 04/18/2021 3:49 PM CDT Pulse 82 04/18/2021 3:49 PM CDT Temperature 36.8 ??C (98.2 ??F) 04/18/2021 3:49 PM CD T Respiratory Rate 16 01/01/2017 7:39 PM CDT Oxygen Saturation 96% 04/18/2021 3:49 PM CDT Inhaled Oxygen Concentration - - Weight 86.4 kg (190 lb 6.4 oz) 04/18/2021 3:49 P M CDT Height 165.1 cm (5' 5 ) 04/18/2021 3:49 PM CDT Body Mass Index 31.68 04/18/2021 3:49 PM CDT Plan of Treatment Health Maintenance Due Date Last Done Comments COLOGUARD (AGES 45-75) - COL ON CA SCREENING 1976 COLON MONITORING 1976 COLONOSCOPY - COLON CA SCREENING 1976 CT COLONOGRAPHY - COLON CA SCREENING 1976 Colorectal Cancer Screening 1976 FIT - COLON CA SCREENING 1976 FLEX SIG - COLON CA SCREENING 1976 LIPID TESTING 1976 MAMMOGRAM 1976 PAP SMEAR 1976 PNEUMOCOCCAL VACCINE (1 of 2 - PCV) 1982 HIV SCREENING 1991 HEPATITIS C SCREENING 07/25/1994 DTAP/TDAP/TD VACCINES (1 - Tdap) 1995 HEPATITIS B VACCINE (1 of 3 - 19+ 3-dose series) 1995 SCREENING FOR DIABETES 06/15/2020 DEPRESSION SCREENING 09/02/2023 COVID-19 VACCINE (1 - 2023-2 5 season) 2024 INFLUENZA VACCINE (#1) 2024 ZOSTER VACCINE (1 of 2) 2026 HIB VACCINE Aged Out No longer eligi ble based on patient's age to complete this topic HPV VACCINE Aged Out No longer eligi ble based on patient's age to complete this topic MENINGOCOCCAL VACCINE Aged Out No gilles antonio eligible based on patient's age to complete this topic Advance Directives Documents on File Type Date Recorded 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
--- OUTSIDE RECORDS SUMMARY | 2024-08-18 21:34 | XMS_ITS | Patient Health Summary ---
Author Organization [facility] [employer] Address [address] [place] [address] Care Team Providers Care Shipping Coordinator Name Role Phone Kendrick Chacon MD Primary Care Provider [phone] Note from [facility],non-owned Affiliates and Associated Physician Practices is amultiple site organization consisting of ambulatory clinics and hospital sitesin [place], [place], [place] and [place]. This disclosure is being madepursuant to the Care Everywhere program and may not contain all information available regarding this patient. Last updated 18.[facility] Allergies No known active allergies Medications * Be aware that medications may not be up to date on this document. Alwaysverify current medications with the patient. * famotidine (PEPCID) 40 MG tablet Take 40 mg by mouth 2 times daily * iron polysaccharides (NIFEREX 150) 150 MG capsule Take 150 mg by mouth once daily * albuterol HFA (PROAIR HFA) 108 (90 BASE) MCG/ACT inhaler(Started 01/01/2017) Inhale 2 Puffs by mouth every 6 hours as needed 3 refills remaining * Flunisolide HFA (AEROSPAN) 80 MCG/ACT(Started 01/03/2017) Inhale 2 Puffs by mouth 2 times daily 1 refill remaining * omeprazole (PRILOSEC) 20 MG capsule Take 20 mg by mouth once daily * citalopram (CELEXA) 20 MG tablet(Started 04/13/2020) * clonazePAM (KLONOPIN) 0.5 MG tablet(Started 03/26/2021) Take 0.5 mg by mouth once daily as needed * cyclobenzaprine (FLEXERIL) 10 MG tablet(Started 03/17/2021) Take 10 mg by mouth nightly as needed * meloxicam (MOBIC) 7.5 MG tablet(Started 03/26/2021) Take 7.5 mg by mouth 2 times daily as needed * tolterodine ER 24hr (DETROL LA) 4 MG capsule(Started 03/02/2021) Take 4 mg by mouth once daily * fluticasone-salmeterol 113-14 MCG/ACT inhaler Inhale 1 puff by mouth 2 times daily * vitamin D, ergocalciferol, (DRISDOL) 1.25 MG (14572 UT) capsule(Started 07/12/2021) TAKE 1 CAPSULE BY MOUTH WEEKLY * predniSONE (Deltasone) 5 MG tablet(Started 03/26/2023) TAKE 1 TABLET BY MOUTH EVERY DAY 11 refills by 03/25/2024 Active Problems Problem Noted Date Diagnosed Date Adrenal insufficiency 04/19/2021 Prior with demise 01/30/2017 Supervision of high-risk of elderly mu ltigravida 01/29/2017 Encounter for anatomic survey 01/29/2017 Resolved Problems Problem Noted Date Diagnosed Date Resolved Date Viral pneumonia 01/01/2017 01/29/2017 Social History Tobacco Use Types Packs/Day Years [...] Mass Index 31.68 04/18/2021 3:49 PM CDT Procedures * BIOPHYSICAL PROFILE W NST(Performed 02/13/2017) Performed for Small for gestational age (HCC), Supervision of high-risk of elderly multigravida (HCC) * BIOPHYSICAL PROFILE W NST(Performed 02/06/2017) Performed for Small for gestational age (HCC), Supervision of high-risk of elderly multigravida (HCC) * SONOGRAM - COMPLETE(Performed 01/30/2017) Performed for Supervision of high-risk of elderly multigravida (HCC), Encounter for fetalanatomic survey ([facility]) * XR CHEST 1VW PORTABLE(Performed 01/01/2017) Performed for Viral pneumonia Results * BIOPHYSICAL PROFILE W NST (02/13/2017 7:51 AM CDT) Only the most recent of2 resultswithin the time period is included. Anatomical Region Laterality Modality Other 02/13/2017 7:51 AM CDT Narrative 02/13/2017 10:36 AM CDT ? [facility] ? [facility] ?PHONE: ??FAX: ? Pat. Name: ?DANIEL PHELAN. No: ?[id number] Study Date: ?? 02/13/2017 ??7:51am , Age: ? 1975, 41 Pregnancies: ?? 5, Para 2112 Height: ? 65 in Weight: ? 165 lb LMP: ?06/06/2016 GA by LMP: ?36w0d GA by 1st: ?36w0d GA Selected: ??36w0d (From First S) JORGE LUIS: ?03/13/2017 Referring MD: Guevara Sal MD Child Caregiver Private Home: ??Sushma Oakes RDMS BMI: ?27.45 Hist/Ind: ? Small Head Circumference on Outside Scan ?History of 33wk Delivery ?Advanced Maternal Epd-Zhd-Ejct NIPT ?EFW < 10th % Heart Rate: 129 bpm Amniotic Fluid Index: 07.3cm (07.7-24.9)* Q1: 2.3cm ??Q2: 2.2cm ??Q3: 1.5cm ??Q4: 1.3cm ?? Biophysical Profile: 06/11 Breathin ?? Tone: 2 ?? NST: 2 Movement: ??2 ?? AFV: ??2 DOPPLER Umbilical - Mid Cord S/D ??2.44(1.64 - 3.51) ? PI ?? 0.92 (0.58 - 1.16) ? Middle Cerebral Artery PSV ?? PI ?? 1.28 (1.39 - 2.52) * ?? Med PSV 53.5cm/s MoM 1.07(<1.5) CLINICAL SUMMARY Study Number: 3 A single fetus is identified in cephalic presentation. ??The placenta is posterior. ??The amniotic fluid volume is decreased. The amniotic fluid index is 7.28 cm DOPPLER STUDIES: ?? The umbilical artery Doppler S/D ratio is 2.44 , which is within normal limits for gestational age. ?? The umbilical PI is 0.92, which is within normal limits for gestational age. The MCA PSV is 57.30 ( 1.07 MoM), which is within normal limits for gestational age. The MCA PI is 1.28, which is decreased for gestational age. ?? TESTING The Biophysical profile score is 10/10. ??A 2x2 pocket of fluid was visualized. IMPRESSION: ?? Single, live IUP at 36w0d Low normal TOSHIA Dopplers suggest cephalized blood flow Reassuring BPP/NST, and umbilical doppler RECOMMEND: ?? Twice weekly testing with weekly Dopplers Follow up for growth in 1 week Follow up on Saturday for repeat Dopplers, NST, and BPP. ?? Scheduled. Thanks for allowing us the opportunity to care for your patient. Andrea Holm MD <Electronic Signature> ??02/13/2017 10:35am Montez Gregg MD [facility] ORDERABLES * SONOGRAM - COMPLETE (01/30/2017 9:22 AM CDT) Anatomical Region Laterality Modality Other 01/30/2017 9:22 AM CDT Narrative 01/30/2017 12:29 PM CDT ? [facility] Maternal Medicine ? [facility] ?PHONE: ??FAX: ? Pat. Name: ?DANIEL PHELAN Pat. No: ?[id number] Study Date: ?? 01/30/2017 ??9:22am , Age: ? 1975, 41 Pregnancies: ?? 5, Para 2112 Height: ? 65 in Weight: ? 165 lb LMP: ?06/06/2016 GA by LMP: ?34w0d GA by US: ? 31w4d GA Selected: ??34w0d (LMP) JORGE LUIS: ?03/13/2017 Referring MD: Guevara Sal MD Child Caregiver Private Home: ??Kate Devlin RDMS CPT4: ? 04898, 01535, 73491, [address]18 BMI: ?27.45 Hist/Ind: ? Small Head Circumference on Outside Scan ?History of 33wk Delivery ?Advanced Maternal Btj-Bdg-Lwny NIPT MEASUREMENTS & AGE ? GROWTH EVALUATION Measurement ??GA ? Range ? Srce %for GA Ratios ----- ---- ------- BPD ??7.5 cm 30w2d (38f6x-55b2f) Hadl BPD <05 FL/BPD 0.84 (0.71 - 0.87) HC ??29.0 cm 31w6d (00p0w-38l2g) Hadl HC ??18% FL/AC ??0.23 (0.20 - 0.24) AC ??27.5 cm 31w4d (66b7v-59h4x) Hadl AC ??14% HC/AC ??1.05 (0.94 - 1.13) FL ?? 6.4 cm 32w6d (22u4s-93i6c) Hadl FL ??32% CI ? 0.73 (0.70 - 0.86) HL ?? 5.4 cm 31w3d (02q5r-88p0n) Azam HL ??7% GA for sonogram 31w4d (74v3o-70z5e) ?? Weight Estimate: based on (BPD,HC,AC,FL) Avg ?Weight: 1854 gm (7735-2378) Hadlo ? : 4lbs, 1oz ? Normal: 2377 gm (1973- 2781) Hadlo ? Wt% ? <10 for 34w0d Heart Rate: 132 bpm Amniotic Fluid Index: 12.9cm (08.1-24.8) Q1: 2.1cm ??Q2: 3.7cm ??Q3: 3.4cm ??Q4: 3.7cm ?? Biophysical Profile: 06/11 Breathin ?? Tone: 2 ?? NST: 2 Movement: ??2 ?? AFV: ??2 DOPPLER Umbilical - Mid Cord S/D ??2.51(1.73 - 3.68) ? PI ?? 0.93 (0.62 - 1.20) ? Middle Cerebral Artery PSV ?? PI ?? 2.35 (1.53 - 2.74) ? Med PSV 48.8cm/s MoM 0.98(<1.5) CLINICAL SUMMARY Study Number: 1 A single fetus is identified cephalic presentation. ??The measurements today are consistent with less than expected size for the JORGE LUIS provided. ??The JORGE LUIS selected is based on her LMP and a prior ultrasound examination. ??The amniotic fluid volume is within normal limits. ??The placenta is posterior. ??No major malformations are seen. ??The patient was advised that ultrasound does not allow detection of all structural or chromosomal abnormalities. TESTING: The Biophysical profile score is 10. IMPRESSION: ?? Single, live vertex IUP at 34w0d Normal amniotic fluid volume. Less than expected ?? growth - predicated upon provided dating criteria Placental location: Posterior No major malformations are identified on an incomplete anatomical survey UA and MCA Dopplers appear normal RECOMMEND: ?? Follow up ultrasound in 2 weeks for growth evaluation Weekly testing: BPP, NST, TOSHIA Thank you for allowing us the opportunity to care for your patient. Montez Gregg MD <Electronic Signature> ??01/30/2017 12:01pm Revised Guevara Sal MD [facility] ORDERABLES * XR CHEST 1VW PORTABLE (01/01/2017 7:51 PM CDT) Anatomical Region Laterality Modality Chest Radiographic Domenica ging 01/01/2017 7:56 PM CDT Narrative 01/01/2017 7:58 PM CDT AP portable chest 01/01/2017 at 1949 hours HISTORY: Pneumonia The heart size and mediastinal contours are normal. The pulmonary vascularity and joe are normal. The lungs are clear. Procedure Note Tong Lee MD - 01/01/2017 AP portable chest 01/01/2017 at 1949 hours HISTORY: Pneumonia The heart size and mediastinal contours are normal. The pulmonary vascularity and joe are normal. The lungs are clear. Jacquelyn Carlos MD DIAGNOSTIC IMAGING O [facility] Care Teams Shipping Coordinator Relationship Specialty Start Date End Date Kendrick Chacon MD [address] [place] [address] PCP - General 04/03/21
--- OUTSIDE RECORDS SUMMARY | 2024-08-18 21:34 | XMS_ITS | Referral Summary ---
Author Organization [facility] Address [address] [place] [address] Care Team Providers Care Guest Advisor Name Role Phone Kendrick Chacon MD Primary Care Provider [phone] Source Comments [facility],non-owned Affiliates and Associated Physician Practices is amultiple site organization consisting of ambulatory clinics and hospital sitesin [place], [place], [place] and [place]. This disclosure is being madepursuant to the Care Everywhere program and may not contain all information available regarding this patient. Last updated 18.[facility] Allergies No known active allergies Medications * [...] Active vitamin D, ergocalciferol, (DRISDOL) 1.25 MG (80350 UT) capsule TAKE 1 CAPSULE BY MOUTH [...] 04/18/2021 3:49 PM CDT Plan of Treatment Not on file Advance Directives Documents on File Type Date Recorded Patient Escape Wheel Tooth Cutter Expl anation Adv Directive/Living Will/POA 01/01/2017 * Full Code (Latest Code Status on File) Date Activated Date Inactivated Comments 01/01/2017 7:27 PM 01/01/2017 9:50 PM Care Teams Guest Advisor Relationship Specialty Start Date End Date Kendrick Chacon MD [facility] [address] [place] [address] PCP - General 04/03/21
--- OUTSIDE RECORDS SUMMARY | 2024-08-18 21:34 | XMS_ITS | Encounter Summary ---
Author Organization [facility] Address [address] [place] [address] Care Team Providers Care Rail Car Loader Name Role Phone Kendrick Chacon MD Primary Care Provider [phone] Reason for Visit * Reason Comments Refill Request Encounter Details Date Type Department Care Team (Late st Contact Info) Description 03/22/2023 Refill [facility] - Endocrinology [address] [place] [address], [place] [id number] Froylan Valle MD [address] [place] [address] Refill Request Social History Tobacco Use Types [...] encounter Miscellaneous Notes * Telephone Encounter - Promise Hemphill LPN - 03/26/2023 10:17 AM CDT Refill Request Anat Phelan KENISHA: 04/18/21 NOV scheduled: None LRF: 12/07/21 Qty Disp: 90 # of refills: 11 Allergies: No Known Allergies Pended Medication Order: Requested Prescriptions Pending Prescriptions Disp Refills ??? predniSONE (Deltasone) 5 MG tablet [Pharmacy Med Name: PREDNISONE 5MG TABLETS] 90 tablet 11 Sig: TAKE 1 TABLET BY MOUTH EVERY DAY documented in this encounter Plan of Treatment Not on file documented as of this encounter Visit Diagnoses Diagnosis Adrenal insufficiency (HCC) Glucocorticoid deficiency documented in this encounter Care Teams Rail Car Loader Relationship Specialty Start Date End Date Kendrick Chacon MD [address] [place] [address] PCP - General 04/03/21 documented as of this encounter
--- OUTSIDE RECORDS SUMMARY | 2024-08-18 21:35 | XMS_ITS | Encounter Summary ---
Author Organization [facility] Address [address] [place] [address] Care Team Providers Care Can Feeder Name Role Phone Kendrick Chacon MD Unavailable Edy Yadav MD Unavailable Keven Gonzalez DO Primary Care Provider [phone] Encounter Details Date Type Department Care Team (Latest Contact Info) Description 07/20/2024 12:30 PM HAND ALTERATIONS TAILOR Ancillary Procedure [facility] Medical Group Imaging at [address] [address] Effusion of joint, unspecified location; Arthralgia, unspecified joint Social History Tobacco Use Types Packs/Day Years Used Date Smoking Tobacco: Former Cigarettes Smokeless Tobacco: Never Alcohol Use Standard Drinks/Week Comments Never 0 (1 standard drink = 0.6 oz pur e alcohol) AUDIT-C Answer Date Recorded Q1: How often do you have a drink containing alc ohol? 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 Not on file Not on file Not on file documented as of this encounter Plan of Treatment Not on file documented as of this encounter Procedures Procedure Name Priority Date/Time Associated Diagnosis Comments XR CHEST PA LATERAL 2 VIEWS Schedule Routine, Read Routine (OP Routine) 07/20/2024 1:14 PM HAND ALTERATIONS TAILOR Effusion of joint, unspecified location Arthralgia, unspecified joint documented in this encounter Results * X-ray chest 2 views (07/20/2024 1:14 PM HAND ALTERATIONS TAILOR) Anatomical Region Laterality Modality Body, Chest N/A Digital Radiogra phy 07/22/2024 9:24 PM HAND ALTERATIONS TAILOR Narrative 07/22/2024 9:26 PM HAND ALTERATIONS TAILOR EXAM DESCRIPTION: XR CHEST PA LATERAL 2 VIEWS REASON FOR STUDY: ?? R/O myositis. History of asthma. Smoker 20+ years, quitting in 2020. Pt smoked about 1 PPD. ? TECHNIQUE: There are 2 ??radiographic view(s) of the chest. COMPARISON: No prior. FINDINGS: LUNGS: ??Pulmonary vascularity appears normal. ??Elevation right hemidiaphragm. ??No confluent infiltrate. HEART/MEDIASTINUM: ??Cardiac silhouette normal in size. Mediastinal and hilar contours appear normal. LINES/TUBES: ??None. BONES: ??Mild spondylosis thoracic spine. Cholecystectomy clips. IMPRESSION: No acute findings or infiltrate. Elevation right hemidiaphragm. ??Trivial blunting right costophrenic angle may reflect sequela of elevated right hemidiaphragm. ??Subtle effusion difficult to exclude. THIS IS AN ELECTRONICALLY VERIFIED FINAL REPORT 07/22/2024 9:26 PM - Electronically signed by ??Eh BELL D: ??07/22/2024 9:26 PM T: Report ID: [id number] Reading Location: ??[id number] Procedure Note Eh Gill MD - 07/22/2024 EXAM DESCRIPTION: XR CHEST PA LATERAL 2 VIEWS REASON FOR STUDY: R/O myositis. History of asthma. Smoker 20+ years, quitting in 2020. Ptsmoked about 1 PPD. TECHNIQUE: There are 2 radiographic view(s) of the chest. COMPARISON: No prior. FINDINGS: LUNGS: Pulmonary vascularity appears normal. Elevation right hemidiaphragm. No confluent infiltrate. HEART/MEDIASTINUM: Cardiac silhouette normal in size. Mediastinal andhilar contours appear normal. LINES/TUBES: None. BONES: Mild spondylosis thoracic spine. Cholecystectomy clips. IMPRESSION: No acute findings or infiltrate. Elevation right hemidiaphragm. Trivial blunting right costophrenic anglemay reflect sequela of elevated right hemidiaphragm. Subtle effusiondifficult to exclude. THIS IS AN ELECTRONICALLY VERIFIED FINAL REPORT 07/22/2024 9:26 PM - Electronically signed by Eh Gill M.D. MJ T: Report ID: [id number] Reading Location: [place] [address] us Jessie Sherwood MD IMG XR PROCEDURES Final Re sult documented in this encounter Visit Diagnoses Diagnosis Effusion of joint, unspecified location Arthralgia, unspecified joint documented in this encounter Care Teams Can Feeder Relationship Specialty Start Date End Date Keven Gonzalez DO [address] [place] [address] PCP - General Family Medicine 05/29/24 Kendrick Chacon MD Emergency Medicine 04/27/20 Edy Yadav MD [address] [place] [address] Consulting Physician Pain Management 04/28/21 documented as of this encounter
--- OUTSIDE RECORDS SUMMARY | 2024-08-18 21:35 | XMS_ITS | CONTINUITY OF CARE DOCUMENT ---
Author Name ramakrishna neojeane Address Unknown Organization [facility] Address [address] [place] [address] [address] [place] [address] Phone [phone] Care Team Providers Care Jewelry Dipper Name Role Phone Shavonne Parkinson MD Unavailable CHARLOTTE DOWD MD Unavailable [phone] CHARLOTTE DOWD MD Unavailable [phone] PROBLEMS Condition Status Date Provider Notes Tremor active Shavonne Parkinson MD Pulmonary embolism active Shavonne Parkinson MD Cardiology examination active Shavonne mensah MD ENCOUNTERS Date Type Provider Location Encounter Diag nosis - In-person encounter Office Visit Shavonne Parkinson MD [facility] Cardiology examinationPulmonary embolismTremor VITAL SIGNS Date Observation Value Provider Body Mass Index (Ratio) 32.95 kg/m2 Harry as [place] blood pressure, diastolic 78 mm[Hg] Li nkLogic blood pressure, systolic 140 mm[Hg] Iris kLogic blood pressure, diastolic 78 mm[Hg] Va supriya Mosqueda blood pressure, systolic 140 mm[Hg] Nery marcos Panda respiratory rate E&M 18 /min Michelle Panda height E&M 65 [in_i] Michelle Panda weight E&M 198 [lb_av] Michelle Panda pulse rate 86 /min Michelle Panda oxygen saturation, oximetry 96 % Michelle Panda blood pressure, cuff size regular Va supriya Luisn ALLERGIES Allergy Name Onset Date Reaction Criticality Status NAPROXEN High Criticality active HISTORY OF MEDICATION USE Medication Status Instructions Dates Provider Indications Com ments Acetaminophen Extra Strength 500 mg tablet active 2 tablet by mouth twice a day Michelle Panda FeroSul 325 mg (65 mg iron) tablet active TAKE 1 TABLET BY MOUTH TWICE DAILY AFTER A MEAL Michelle Panda bupropion HCl 150 mg tablet extended release 24 hr active TAKE 1 TABLET BY MOUTH EVERY DAY Michelle Panda docusate sodium 100 mg capsule active TAKE 1 CAPSULE BY MOUTH TWICE DAILY DIRECTED Michelle Panda clonazepam 0.5 mg tablet active TAKE 1 TABLET BY MOUTH TWICE DAILY NEEDED Michelle Panda citalopram 40 mg tablet active TAKE 1 TABLET BY MOUTH EVERY DAY Michelle Panda famotidine 40 mg tablet active TAKE 1 TABLET BY MOUTH EVERY DAY AT BEDTIME Michelle Panda cyclobenzaprine 10 mg tablet active TAKE 1 TABLET BY MOUTH EVERY 12 HOURS NEEDED Michelle Panda amoxicillin-pot clavulanate 875-125 mg tablet active TAKE 1 TABLET BY MOUTH EVERY 12 HOURS Michelle Apnda albuterol sulfate 90 mcg/actuation HFA aerosol inhaler active INHALE 2 PUFFS BY MOUTH EVERY 4 TO 6 HOURS NEEDED Michelle Panda baclofen 20 mg tablet active TAKE 1 TAB LET BY MOUTH EVERY 8 HOURS NEEDED Michelle Panda atorvastatin 10 mg tablet active TAKE 1 TABLET BY MOUTH EVERY DAY AT BEDTIME Michelle Panda ergocalciferol (vitamin D2) 1,250 mcg (50,000 unit) capsule active TAKE 1 CAPSULE BY MOUTH EVERY WEEK DIRECTED Michelle Panda Anoro Ellipta 62.5-25 mcg/actuation blister with device active INHALE 1 PUFF BY MOUTH DAILY Michelle Panda Eliquis 5 mg tablet active TAKE 1 TABLE T BY MOUTH TWICE DAILY DIRECTED Michelle Panda furosemide 20 mg tablet active TAKE 4 TABLET BY MOUTH EVERY DAY IN THE MORNING Michelle Panda polyethylene glycol 3350 17 gram/dose powder active MIX AND DRINK 17 GRAMS BY MOUTH DAILY DIRECTED Michelle Panda lidocaine 5% adhesive patch,medicated active APPLY 1 PATCH TOPICALLY TO THE SKIN DAILY NEEDED FOR BREAKTHROUGH PAIN Michelle Panda omeprazole 40 mg capsule,delayed release(DR/EC) active TAKE 1 CAPSULE BY MOUTH EVERY DAY IN THE MORNING Michelle Panda gabapentin 600 mg tablet active TAKE 1 TABLET BY MOUTH THREE TIMES DAILY DIRECTED Michelle Panda INSURANCE PROVIDERS Payer name Policy type / Coverage type Jennifer red constitution party ID [place] MEDICAID (2) Medicaid [id number] ADVANCE DIRECTIVES Name Date DISCUSSED - NO DECISION MADE TREATMENT PLAN Date Name Performer Cardiology:Echo 02/23 L eft Ventricle Left ventricular chamber dimension is normal.Left ventricular systolic function is normal. estimated at 60-65%. T he left ventricular diastolic function is normal. R ight Ventricle Right ventricular chamber dimension is normal. L eft Atria Left atrial chamber dimension is normal. R ight Atria Right atrial chamber dimension is normal. A ortic Valve The aortic valve is normal. P ulmonic Valve The pulmonic valve is not well visualized. M itral Valve The mitral valve has normal leaflets. T ricuspid Valve The tricuspid valve leaflets are normal. P ericardium/Pleural The pericardium appears normal. A wyatt The aortic root size at the sinus of Valsalva is normal. Shavonne Parkinson MD Cardiology:03/25/24 1644 [facility] MPRESSION: 1 . Pulmonary embolism with multiple segmental right pulmonary arteries. small thrombus burden which is decreased c ompared with prior study. 2 : Patchy groundglass opacities of the right lung with more focal consolidation in the right lower lobe, consistent with p neumonia. 3 : Small right pleural effusion. L GENARORAHEEM HAS RHEUMATOLOGIC ISSUE WILL NEED SEEN BY RHEUM NANCY AND HEME TO EVAL FOR HYPERCOAG W/U SUSPECT LUPUS Shavonne Parkinson MD HISTORY OF PROCEDURES Procedure Date Procedure Name Provider Procedure Notes S tatus EKG Shavonne Parkinson MD compl eted
--- OUTSIDE RECORDS SUMMARY | 2024-08-18 21:35 | XMS_ITS | Encounter Summary ---
Author Organization [facility] Address [address] [place] [address] Care Team Providers Care Slide Forming Machine Operator Name Role Phone Kendrick Chacon MD Primary Care Provider [phone] Kendrick Chacon MD Unavailable Edy Yadav MD Unavailable Encounter Details Date Type Department Care Team (Late st Contact Info) Description 09/20/2021 Telephone [facility] Orthopedics and Sports Medicine [address] [place] [address] [address] [place] [address] Daisha Romo MA Social History Tobacco Use Types Packs/Day Years Used Date Smoking Tobacco: Every Day Smokeless Tobacco: Never Alcohol Use Standard Drinks/Week [...] Industry Job Start Date Job End Date Back [employer] Not on file Not on file Not on file documented as of this encounter Miscellaneous Notes * Telephone Encounter - Daisha Romo MA - 09/20/2021 4:07 PM CST Received notice from pharmacy that patient needs a refill on meloxicam. Patient KENISHA was 03/03/21. Patient needs to make appt before [facility] will refill this medication or patient can have PCP take over refilling her meloxicam. T HEATER documented in this encounter Plan of Treatment Not on file documented as of this encounter Visit Diagnoses Not on filedocumented in this encounter Care Teams Slide Forming Machine Operator Relationship Specialty Start Date End Date Kendrick Chacon MD PCP - General 04/27/20 04/30/24 Kendrick Chacon MD Emergency Medicine 04/27/20 Edy Yadav MD [address] [facility] [place] [address] Consulting Physician Pain Management 04/28/21 documented as of this encounter
--- OUTSIDE RECORDS SUMMARY | 2024-08-18 21:35 | XMS_ITS | Encounter Summary ---
Author Organization [facility] Address [address] [place] [address] Care Team Providers Care Intel Analyst Name Role Phone Kendrick Chacon MD Primary Care Provider [phone] Kendrick Chacon MD Unavailable Edy Yadav MD Unavailable Reason for Referral * Diagnostic Imaging (Routine) - Closed Specialty Diagnoses / Procedures Referred By Contac t Referred To Contact Diagnoses Back pain Procedures FL Fluoroscopy < 1 Hour Edy Yadav MD [address] [place] [address] Phone: tel: fax: [address] [phone] Referral ID Status Reason Start Date Expiration Date Visits Re quested Visits Authorized [id number] Closed 05/10/2021 06/09/2022 1 1 Reason for Visit * Diagnostic Imaging (Routine) - Closed Specialty Diagnoses / Procedures Referred By Contac t Referred To Contact Diagnoses Back pain Procedures FL Fluoroscopy < 1 Hour Edy Yadav MD [address] [place] [address] Phone: tel: fax: [address] [phone] Referral ID Status Reason Start Date Expiration Date Visits Re quested Visits Authorized [id number] Closed 05/10/2021 06/09/2022 1 1 Encounter Details Date Type Department Care Team (Latest Contact Info) Description 05/10/2021 8:10 AM CDT - 05/10/2021 1:41 PM CDT Hospital Encounter [facility] Pain [facility] Imaging [address] [place] [address] Back pain Discharge Disposition: Discharge to home or self care Social History Tobacco Use Types Packs/Day Years [...] 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 on file Not on file documented as of this encounter Medications at Time of Discharge acetaminophen (TYLENOL) 500 mg tablet Acetaminophen Extra Strength 500 mg tablet 0 albuterol HFA (PROVENTIL HFA,VENTOLIN HFA,PROAIR HFA) 90 mcg/actuation inhaler Inhale 2 puffs every 6 (six) hours as needed 7 citalopram (CeleXA) 20 mg tablet Take 2 tablets (40 mg total) by mouth daily 0 clonazePAM (KlonoPIN) 0.5 mg disintegrating tablet Take 0.5 mg by mouth nightly as needed for anxiety or seizures cyclobenzaprine (FLEXERIL) 10 mg tablet TAKE 1 TABLET BY MOUTH AT BEDTIME NEEDED 30 tablet 1 fluticasone propion-salmeteroL (AIRDUO RESPICLICK) 55-14 mcg/actuation inhaler 0 omeprazole (PriLOSEC) 20 mg capsule Take 20 mg by mouth daily predniSONE (DELTASONE) 5 mg tabletIndications:l ow acth Take 5 mg by mouth daily terbinafine (LamISIL) 1 % cream RENNY EXT AA BID 0 tolterodine LA (DETROL LA) 4 mg 24 hr capsule Take by mouth daily 1 meloxicam (MOBIC) 7.5 mg tablet Take 1 tablet PO BID PRN 60 tablet 2 1 06/05/20 21 documented as of this encounter Discharge Disposition Disposition Code Departure Means Destination Discharge to home or self care documented in this encounter Plan of Treatment Not on file documented as of this encounter Procedures Procedure Name Priority Date/Time Associated Diagnosis Comments FL FLUOROSCOPY < 1 HOUR Schedule Routine, Read Routine (OP Routine) 05/10/2021 3:40 PM CDT Back pain documented in this encounter Results * FL Fluoroscopy < 1 Hour (05/10/2021 3:40 PM CDT) Narrative [facility] NON LAB - 05/10/2021 4:50 PM CDT The images from this study are not interpreted by Radiology. ??Please refer to the physician's procedure / OR operative note. Edy Yadav MD IMG FLUOROSCOPY PROCEDURES Final Result [facility] NON LAB documented in this encounter Visit Diagnoses Diagnosis Back pain Unspecified backache documented in this encounter Care Teams Intel Analyst Relationship Specialty Start Date End Date Kendrick Chacon MD PCP - General 04/27/20 04/30/24 Kendrick Chacon MD Emergency Medicine 04/27/20 dEy Yadav MD [address] [place] [address] Consulting Physician Pain Management 04/28/21 documented as of this encounter
--- OUTSIDE RECORDS SUMMARY | 2024-08-18 21:35 | XMS_ITS | Encounter Summary ---
Author Organization [facility] Address [address] [place] [address] Care Team Providers Care Continuity Editor Name Role Phone Unavailable Primary Care Provider Unavailabl e Encounter Details Date Type Department Care Team (Latest Contact Info) Description 02/13/2017 7:51 AM CDT - 02/13/2017 11:59 PM T Hospital Encounter [facility] Maternal & Care [address] [place] [id number] Alex Osborn MD [address] [id number] Andrea Holm MD [address] [address] Discharge Disposition: Home or Self Care Social History Tobacco Use Types Packs/Day Years Used Date Smoking Tobacco: Every Day Cigarettes Alcohol Use Standard Drinks/Week Comments No 0 (1 standard drink = 0.6 oz pur e alcohol) Comments Yes Sex and Gender Information Value Date Recorded Sex Assigned at Not on file Gender Identity Not on file Sexual Orientation Not on file documented as of this encounter Medications at Time of Discharge Medication Sig Dispensed Refills Start Date End Date albuterol HFA (PROAIR HFA) 108 (90 BASE) MCG/ACT inhaler Inhale 2 Puffs by mouth every 6 hours as needed 1 Inhaler 3 01/01/2017 famotidine (PEPCID) 40 MG tablet Take 40 mg by mouth 2 times daily Flunisolide HFA (AEROSPAN) 80 MCG/ACT Inhale 2 Puffs by mouth 2 times daily 1 Inhaler 1 01/03/2017 iron polysaccharides (NIFEREX 150) 150 MG capsule Take 150 mg by mouth once daily budesonide-formoterol (SYMBICORT) 160-4.5 MCG/ACT inhaler Inhale 2 Puffs by mouth 2 times daily 1 Inhaler 3 01/01/2017 06/15/2020 cyclobenzaprine (FLEXERIL) 10 MG tablet Take 1 Tab by mouth 3 times daily as needed for Muscle Spasms 15 Tab 01/01/2017 06/15/2020 Vit-Fe Fumarate-FA ( VITAMIN) 28-0.8 MG tabletIndications:Pregnan cy Take 1 Tab by mouth once daily Reasons: 06/15/2020 promethazine (PHENERGAN) 25 MG tablet Take 25 mg by mouth every 6 hours as needed for Nausea/Vomiting 06/15/2020 documented as of this encounter Plan of Treatment Not on file documented as of this encounter Visit Diagnoses Diagnosis AMA (advanced maternal age) multigravida 35+, third trimester (HCC) History of delivery, currently in third trimester ([facility]) documented in this encounter
--- OUTSIDE RECORDS SUMMARY | 2024-08-18 21:35 | XMS_ITS | Encounter Summary ---
Author Organization [facility] Address [address] [place] [address] Care Team Providers Care Industrial Relations Counselor Name Role Phone Unavailable Primary Care Provider Unavailabl e Reason for Visit * Reason Comments Ultrasound FAD NST * Evaluate & Treat (Routine) - Closed Specialty Diagnoses / Procedures Referred By Contac t Referred To Contact Maternal Medicine Diagnoses Supervision of other high risk pregnancies, unspecified trimester (HCC) Supervision of elderly multigravida, unspecified trimester (HCC) Supervision of with history of pre-term labor, unspecified trimester (HCC) Maternal care for known or suspected placental insufficiency, third trimester, not applicable or unspecified (HCC) Procedures VA FULL ROUT OBSTE CARE,VAGINAL Hitesh Benito MD RETIRED [facility] [address] [place] [address] Referral ID Status Reason Start Date Expiration Date Visits Re quested Visits Authorized [id number] Closed 10/29/2016 05/17/2017 16 16 Encounter Details Date Type Department Care Team (Latest Contact Info) Description 01/30/2017 9:16 AM CDT - 01/30/2017 10:14 AM CDT Hospital Encounter [facility] Maternal & Care [address] [place] [phone] Montez Gregg MD [address] [address] Discharge Disposition: Home or Self Care Social [...] Tab by mouth once daily Reasons: 06/15/2020 documented as of this encounter Progress Notes * Hafsa Young RN - 01/30/2017 10:58 AM CDT Pt. Presents today for new patient appointment related to AMA and h/o of demise and SAB. Denies any leaking of fluid, vaginal bleeding, contractions or abdominal pain. Patient has no concerns at this time. Patient verbalizes movement. documented in this encounter Plan of Treatment Not on file documented as of this encounter Procedures Procedure Name Priority Date/Time Associated Diagnosis Comments SONOGRAM - COMPLETE Routine 01/30/2017 9:22 AM CDT Supervision of high-risk of elderly multigravida (HCC) Encounter for anatomic survey (HCC) documented in this encounter Results * SONOGRAM - COMPLETE (01/30/2017 9:22 AM CDT) Anatomical Region Laterality Modality Other 01/30/2017 9:22 AM CDT Narrative 01/30/2017 12:29 PM CDT ? [facility] Maternal Medicine ? Maternal & Care Center ?PHONE: ??FAX: ? Pat. Name: ?DANIEL PHELAN Pat. No: ?[id number] Study Date: ?? 01/30/2017 ??9:22am , Age: ? 1975, 41 Pregnancies: ?? 5, Para 2112 Height: ? 65 in Weight: ? 165 lb LMP: ?06/06/2016 GA by LMP: ?34w0d GA by US: ? 31w4d GA Selected: ??34w0d (LMP) JORGE LUIS: ?03/13/2017 Referring MD: Guevara Sal MD Convenience Store Clerk: ??Kate Devlin RDMS CPT4: ? 77643, [id number], [address]3370, [address]75 BMI: ?27.45 Hist/Ind: ? Small Head Circumference on Outside Scan ?History of 33wk Delivery ?Advanced Maternal Amj-Pvr-Dfbv NIPT MEASUREMENTS & AGE ? GROWTH EVALUATION Measurement ??GA ? Range ? Srce %for GA Ratios ----- ---- ------- BPD ??7.5 cm 30w2d (76o4b-85g3a) Hadl BPD <05 FL/BPD 0.84 (0.71 - 0.87) HC ??29.0 cm 31w6d (64t0i-92l2t) Hadl HC ??18% FL/AC ??0.23 (0.20 - 0.24) AC ??27.5 cm 31w4d (01m1v-23t5r) Hadl AC ??14% HC/AC ??1.05 (0.94 - 1.13) FL ?? 6.4 cm 32w6d (17e4x-92b7d) Hadl FL ??32% CI ? 0.73 (0.70 - 0.86) HL ?? 5.4 cm 31w3d (40c0l-13q4d) Azam HL ??7% GA for sonogram 31w4d (26l5x-06o6o) ?? Weight Estimate: based on (BPD,HC,AC,FL) Avg ?Weight: 1854 gm (7659-3709) Hadlo ? : 4lbs, 1oz ? Normal: 2377 gm (1972- 2781) Hadlo ? Wt% ? <10 for [...] Signature> ??01/30/2017 12:01pm Revised Guevara Sal MD [facility] ORDERABLES documented in this encounter Visit Diagnoses Diagnosis Supervision of high-risk of elderly multigravida (HCC)- Primary Supervision of high-risk of elderly multigravida Encounter for anatomic survey (HCC) Encounter for anatomic survey Prior with demise (HCC) with other poor reproductive history documented in this encounter
--- OUTSIDE RECORDS SUMMARY | 2024-08-18 21:35 | XMS_ITS | Encounter Summary ---
Author Organization [facility] Address [address] [place] [address] Care Team Providers Care Wireline Field Operator Name Role Phone Kendrick Chacon MD Primary Care Provider [phone] Kendrick Chacon MD Unavailable Edy Yadav MD Unavailable Encounter Details Date Type Department Care Team (Late st Contact Info) Description 05/18/2021 Orders Only 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 file Not on file documented as of this encounter Ordered Prescriptions Prescription Sig Dispense Quantity Refills Last Filled Start Date End Date gabapentin (NEURONTIN) 100 mg capsule Take 2 capsules (200 mg total) by mouth every 8 (eight) hours 180 capsule 05/18/2021 documented in this encounter Plan of Treatment Not on file documented as of this encounter Visit Diagnoses Not on filedocumented in this encounter Care Teams Wireline Field Operator Relationship Specialty Start Date End Date Kendrick Chacon MD PCP - General 04/27/20 04/30/24 Kendrick Chacon MD Emergency Medicine 04/27/20 Edy Yadav MD [address] [place] [address] Consulting Physician Pain Management 04/28/21 documented as of this encounter
--- OUTSIDE RECORDS SUMMARY | 2024-08-18 21:35 | XMS_ITS | Data Portability ---
Author Organization [facility] iodine, Main Office Address [address] [place] [address] Assessment Encounter Date Assessment Date Assessment LastModified by Organization Details LastModified Time 10/24/2023 10/24/2023 48 yo F with - WT LOSS PROGRAM - B/L HAND PAIN, chronic - ANEMIA, mild - CERVICAL SPONDYLOSIS - DDD C-SPINE - CHRONIC NECK PAIN - CHRONIC LOW BACK PAIN - GERD - CHRONIC CONSTIPATION - DEPRESSION - ANXIETY - PTSD - OBESITY I - EX-SMOKER Annual labs (partly): 06/04/23. X-ray C & L spine: 04/26/23. CXR: 04/26/23. Wt: 203(06/25/23) - 196(07/18/23) - 196(08/22/23) - 195(10/24/23) D/w pt in detail about her conditions, recent labs & imagines and further plan of care. Will do x-ray. Meds as directed. Good liquid and fiber intake explained. Diet and exercise explained in detail. BP diary education given and call us if any concerns. F/u with PT as per schedule. F/u with GI as per schedule. Cont f/u with Psych at [facility] as per schedule. Cont f/u with Gyne at [facility] as per schedule. HM: WWE - 06/23, normal as per pt. Cont f/u with Gyne as per schedule. Mammo - 2 yrs ago. Ordered. Colonoscopy - Referred to GI. Flu - Pt declined. Tdap, Pneumo, Shingrix - At pharmacy/HD. F/u in 2 months. Lipids in 01/23. Annual labs in 06/25. [email or web address] Not available 10/24/2023 10:42:23 03/12/2024 03/12/2024 48 yo F with - S/P HOSPITALIZATION - B/L PE - PULMONARY INFARCTION - S/P PNEUMONIA - S/P PULMONARY EDEMA - B/L HAND PAIN, chronic - ANEMIA, mild - CERVICAL SPONDYLOSIS - DDD C-SPINE - CHRONIC NECK PAIN - CHRONIC LOW BACK PAIN - GERD - CHRONIC CONSTIPATION - DEPRESSION - ANXIETY - PTSD - OBESITY I - EX-SMOKER 2-D echo: 02/24/24. CTA chest with: 01/22/24. X-ray L-spine: 12/30/23. CT c-spine wo: 12/30/23. CT A&P with: 12/13/23. Annual labs (partly): 06/04/23. X-ray C & L spine: 04/26/23. CXR: 04/26/23. Wt: 203(06/25/23) - 196(07/18/23) - 196(08/22/23) - 195(10/24/23) [Pt stopped] D/w pt in detail about her conditions, recent labs & imagines and further plan of care. I have reconciled the patient's medications post their discharge from inpatient facility. Recent hospital records reviewed and d/w pt. Explained about options for her. Pt declined for Duoneb Rx in the office. She has machine at home, wants solution to be sent to her pharmacy. Will refer pt to Hemat. Pt will be calling her Pulmo at [facility] and see if she can be seen sooner. Pt declined for referral to Cardio. All meds verified with pt. [place] 5/325 # 40 given today until she can see Scientist Immunology. Meds as directed. Good liquid and fiber intake explained. Diet and exercise explained in detail. BP diary education given and call us if any concerns. F/u with PT as per schedule. F/u with GI as per schedule. Cont f/u with Pulmo at [facility] as per schedule. Cont f/u with Psych at [facility] as per schedule. Cont f/u with Gyne at [facility] as per schedule. HM: WWE - 06/23, normal as per pt. Cont f/u with Gyne as per schedule. Mammo - 2 yrs ago. Ordered. Colonoscopy - Referred to GI. Flu - Pt declined. Tdap, Pneumo, Shingrix - At pharmacy/HD. F/u in 1 month. Lipids before next visit. Annual labs in 06/25. [email or web address] Not available 03/12/2024 11:09:21 03/31/2024 03/31/2024 48 yo F with - S/P HOSPITALIZATION - B/L PE - PULMONARY INFARCTION - S/P PNEUMONIA - S/P PULMONARY EDEMA - B/L HAND PAIN, chronic - ANEMIA, mild - CERVICAL SPONDYLOSIS - DDD C-SPINE - CHRONIC NECK PAIN - CHRONIC LOW BACK PAIN - GERD - CHRONIC CONSTIPATION - DEPRESSION - ANXIETY - PTSD - OBESITY I - EX-SMOKER 2-D echo: 02/24/24. CTA chest with: 01/22/24. X-ray L-spine: 12/30/23. CT c-spine wo: 12/30/23. CT A&P with: 12/13/23. Annual labs (partly): 06/04/23. X-ray C & L spine: 04/26/23. CXR: 04/26/23. Wt: 203(06/25/23) - 196(07/18/23) - 196(08/22/23) - 195(10/24/23) [Pt stopped] D/w pt in detail about her conditions, recent labs & imagines and further plan of care. I have reconciled the patient's medications post their discharge from inpatient facility. Recent hospital records reviewed and d/w pt. Explained about options for her. Pt declined for any repeat labs until 06/25. Pt will be seeing her Pulmo on 04/08/24 at [facility]. Will refer pt to Cardio, Pain clinic. All meds verified with pt. Meds as directed. Good liquid and fiber intake explained. Diet and exercise explained in detail. BP diary education given and call us if any concerns. F/u with Pain clinic as per schedule. F/u with Cardio as per schedule. F/u with Hemat as per schedule. F/u with PT as per schedule. F/u with GI as per schedule. Cont f/u with Pulmo at [facility] as per schedule. Cont f/u with Psych at [facility] as per schedule. Cont f/u with Gyne at [facility] as per schedule. HM: WWE - 06/23, normal as per pt. Cont f/u with Gyne as per schedule. Mammo - 2 yrs ago. Ordered. Colonoscopy - Referred to GI. Cologuard ordered. Flu - Pt declined. Tdap, Pneumo, Shingrix - At pharmacy/HD. F/u in 1-2 months. Annual labs in 06/25. [email or web address] Not available 03/31/2024 16:12:56 04/09/2024 04/09/2024 48 yo F with - S/P HOSPITALIZATION - B/L UE TREMORS - B/L PE - PULMONARY INFARCTION - S/P PNEUMONIA - S/P PULMONARY EDEMA - B/L HAND PAIN, chronic - ANEMIA, mild - CERVICAL SPONDYLOSIS - DDD C-SPINE - CHRONIC NECK PAIN - CHRONIC LOW BACK PAIN - GERD - CHRONIC CONSTIPATION - DEPRESSION - ANXIETY - PTSD - OBESITY I - EX-SMOKER 2-D echo: 02/24/24. CTA chest with: 01/22/24. X-ray L-spine: 12/30/23. CT c-spine wo: 12/30/23. CT A&P with: 12/13/23. Annual labs (partly): 06/04/23. X-ray C & L spine: 04/26/23. CXR: 04/26/23. Wt: 203(06/25/23) - 196(07/18/23) - 196(08/22/23) - 195(10/24/23) [Pt stopped] D/w pt in detail about her conditions, recent labs & imagines and further plan of care. I have reconciled the patient's medications post their discharge from inpatient facility. Recent hospital records reviewed and d/w pt. Explained about options for her. During the office visit, pt got verbally abusive few times and she did not finish the visit and left the room and slammed the door. Will refer pt to Neuro for her tremors. Pt declined for any repeat labs until 06/25. Meds as directed. Good liquid and fiber intake explained. Diet and exercise explained in detail. BP diary education given and call us if any concerns. F/u with Pain clinic as per schedule. F/u with Cardio as per schedule. F/u with Hemat as per schedule. F/u with PT as per schedule. F/u with GI as per schedule. Cont f/u with Pulmo at [facility] as per schedule. Cont f/u with Psych at [facility] as per schedule. Cont f/u with Gyne at [facility] as per schedule. Educated pt about alarming symptoms to monitor at home and call 911/get checked in ED. HM: WWE - 06/23, normal as per pt. Cont f/u with Gyne as per schedule. Mammo - 2 yrs ago. Ordered. Colonoscopy - Referred to GI. Cologuard ordered in the past. Flu - Pt declined. Tdap, Pneumo, Shingrix - At pharmacy/HD. F/u as directed. Annual labs in 06/25. [email or web address] Not available 04/09/2024 14:37:51 Plan of Treatment Reminders Order Date Submit Date Provider Last Modified By Organization Details Last Modified Time Details Appointments None recorded. Lab lipid panel, serum [address] (Lab), [address] [place], [address], 4 08:30:44 lipid panel, serum [address] (Lab), [address] [place], [address], 4 08:11:23 noninvasive colorectal cancer DNA + occult blood screening, QL, stool 2023 024 [facility] (Cologuard Orders Only), [address], [address], [place], [address], 4 17:19:08 Referral gastroenter ologist referral - Please call patient to schedule an appointment . 2023 024 [email or web address] Brenden Carlson MD, [address] [facility], [address], [place], [address], 4 08:35:15 gastroenter ologist referral - Patient has new onset intussuscep tion , found on CT 01/21, not present on CT 12/12. Diverticulo sis. Please call patient to schedule an appointment . Thank you. 2023 024 [email or web address] [facility]ya, [address], [address], [place], [address], 08:51:43 hematologis t referral - Multiple PEs, ex-smoker. Please call patient to schedule an appointment . Thank you. 2023 024 [email or web address] Matthew Soni DO, [address] [place], [address], 08:54:02 cardiologis t referral - Please call patient to schedule an appointment . Thank you. 2023 024 [email or web address] [facility] F[facility], [address], [address], [place], [address], 07:47:52 pain management referral - Please call patient to schedule an appointment . Thank you. 2023 024 [email or web address] [facility], [address], [place], [address], 07:46:41 neurologist referral - Please call patient to schedule an appointment . Thank you. 2023 [email or web address] [facility], [address] [place], [address], 08:52:35 Procedures None recorded. Surgeries None recorded. Imaging XR, hand, 3 or more view 2023 [email or web address] [address] [facility], [address] [place] [address] , [place], [address], 09:04:28 Medication Orders diclofenac sodium 75 mg tablet,tarsha yed release 2023 [facility]797, [address], [place], [place], [id number], 10:36:23 atorvastati n 10 mg tablet 2023 [facility] #84823, [address], [place], [place], [id number], 4 10:32:43 phentermine 37.5 mg tablet 2023 024 [email or web address] [facility] #71662, [address], [place], [place], [id number], 4 10:13:02 ergocalcife rol (vitamin D2) 1,250 mcg (50,000 unit) capsule 2023 024 [facility] #77435, [address], [place], [place], [id number], 4 10:32:39 omeprazole 40 mg capsule,del ayed release 2023 024 [facility] #98000, [address], [place], [place], [id number], 4 10:32:40 famotidine 40 mg tablet 2023 024 [facility] #85420, [address], [place], [place], [id number], 4 10:32:42 docusate sodium 100 mg capsule 2023 024 [facility] #63052, [address] [place], [place], [id number], 4 14:26:23 phentermine 37.5 mg tablet [email or web address] [place] [address] [facility] #11172, [address], [place], [place], [id number], 4 10:13:02 ipratropium 0.5 mg-albutero l 3 mg (2.5 mg base)/3 mL nebulizatio n soln 2023 [facility] #03375, [address], [place], [place], [id number], 4 10:22:20 Eliquis 5 mg tablet 2023 [facility] #77130, [address], [place], [place], [id number], 4 10:22:22 hydrocodone 5 mg-acetamin ophen 325 mg tablet 2023 [facility] #82440, [address], [place], [place], [id number], 4 10:22:59 albuterol sulfate HFA 90 mcg/actuati on aerosol inhaler 2023 [facility] #15919, [address], [place], [place], [id number], 4 10:23:13 furosemide 20 mg tablet 2023 [facility] #26203, [address], [place], [place], [id number], 4 10:46:07 atorvastati n 10 mg tablet 2023 024 [facility] #05172, [address], [place], [place], [id number], 4 10:22:22 gabapentin 300 mg capsule 2023 024 [facility] #74416, [address], [place], [place], [id number], 4 16:01:49 ergocalcife rol (vitamin D2) 1,250 mcg (50,000 unit) capsule 2023 024 [facility] #36052, [address], [place], [place], [id number], 4 10:22:22 omeprazole 40 mg capsule,del ayed release 2023 024 [facility] #08270, [address], [place], [place], [id number], 4 10:22:24 famotidine 40 mg tablet 2023 [facility] #62895, [address], [place], [place], [id number], 4 10:22:21 ipratropium 0.5 mg-albutero l 3 mg (2.5 mg base)/3 mL nebulizatio n soln 2023 [facility] #95751, [address], [place], [place], [id number], 4 16:00:21 Eliquis 5 mg tablet 2023 024 [facility] #50917, [address], [place], [place], [id number], 4 16:00:24 albuterol sulfate HFA 90 mcg/actuati on aerosol inhaler 2023 024 [facility] #39675, [address], [place], [place], [id number], 4 16:00:26 furosemide 20 mg tablet 2023 024 [facility] #78748, [address], [place], [place], [id number], 4 16:00:26 gabapentin 600 mg tablet 2023 024 [facility] #25941, [address], [place], [place], [id number], 4 16:00:23 baclofen 20 mg tablet 2023 024 [facility] #51572, [address], [place], [place], [id number], 4 16:00:31 atorvastati n 10 mg tablet 2023 024 [facility] #50928, [address], [place], [place], [id number], 4 16:00:27 ergocalcife rol (vitamin D2) 1,250 mcg (50,000 unit) capsule 2023 024 [facility] #04071, [address], [place], [place], [id number], 4 16:00:29 omeprazole 40 mg capsule,del ayed release 2023 024 [facility] #01310, [address], [place], [place], [id number], 4 16:00:27 famotidine 40 mg tablet 2023 024 [facility] #02861, [address], [place], [place], [id number], 4 16:00:21 ipratropium 0.5 mg-albutero l 3 mg (2.5 mg base)/3 mL nebulizatio n soln 2023 [facility] #58218, [address], [place], [place], [id number], 4 12:05:29 albuterol sulfate HFA 90 mcg/actuati on aerosol inhaler 2023 [facility] #00310, [address], [place], [place], [id number], 4 12:05:29 furosemide 20 mg tablet 2023 [facility] #53991, [address], [place], [place], [id number], 4 12:05:30 omeprazole 40 mg capsule,del ayed release 2023 [facility] #39740, [address], [place], [place], [id number], 4 12:05:30 famotidine 40 mg tablet 2023 024 [facility] #06453, [address], [place], [place], [id number], 4 12:05:29 atorvastati n 10 mg tablet 2023 [facility] #55257, [address], [place], [place], [id number], 4 12:05:33 Patient TargetsNo targets recorded. Patient Instructions Encounter Date Encounter Id Patient Instructions Last Modified By Organization Details Last Modified Time 10/24/2023 [id number] learning about obesity [email or web address] Not available 10/24/2023 10:32:32 03/12/2024 [id number] learning about obesity [email or web address] Not available 03/12/2024 10:22:13 Thank you for your visit to our office today. We would like to request that you reach out to your referring or previous provider and request that they send us a Summary of Care in electronic form, so that we may have it on file in your medical record. At your visit, we had the medical records we needed to provide you with the best possible care; however, for insurance purposes, an electronic Summary of Care is beneficial. Thank you for your assistance in obtaining this information and we look forward to providing continued care to you. Please review your medication list from the Summary of Care for this visit. If there are any differences from what you are currently taking at home, please call us to discuss. Not available 03/12/2024 09:52:22 Homebound Status : {{Patient has an inability to leave the home without a taxing effort and assistance from another person Does not meet homebound status}} Required Home Health Services: {{none fpc, physical therapy, occupational therapy fpc, physical therapy fpc}} Durable Medical Equipment needed: {{cane walker wal ker with seat manual wheelchair bedsid e commode oxygen}} Billing Guidelines CPT code 08361- Transitional Care Management services with moderate medical decision complexity (rfrm-op-vynm visit within 14 days of discharge). CPT code 55886- Transitional Care Management services with high medical decision complexity (gllo-us-uuff visit within 7 days of discharge). Not available 03/12/2024 09:52:22 03/31/2024 [id number] learning about obesity [email or web address] Not available 03/31/2024 16:00:11 Thank you for your visit to our office today. We would like to request that you reach out to your referring or previous provider and request that they send us a Summary of Care in electronic form, so that we may have it on file in your medical record. At your visit, we had the medical records we needed to provide you with the best possible care; however, for insurance purposes, an electronic Summary of Care is beneficial. Thank you for your assistance in obtaining this information and we look forward to providing continued care to you. Please review your medication list from the Summary of Care for this visit. If there are any differences from what you are currently taking at home, please call us to discuss. Not available 03/31/2024 15:42:48 04/09/2024 [id number] Thank you for your visit to our office today. We would like to request that you reach out to your referring or previous provider and request that they send us a Summary of Care in electronic form, so that we may have it on file in your medical record. At your visit, we had the medical records we needed to provide you with the best possible care; however, for insurance purposes, an electronic Summary of Care is beneficial. Thank you for your assistance in obtaining this information and we look forward to providing continued care to you. Please review your medication list from the Summary of Care for this visit. If there are any differences from what you are currently taking at home, please call us to discuss. Not available 04/09/2024 11:46:58 Reason for Referral Mirror Machine Feeder Referral for Screening colonoscopy Please call patient to schedule an appointment. Referring Physician: Ang Patterson [facility], Encounter Date: 10/24/2023 Mirror Machine Feeder Referral for Intussusception of small intestine Patient has new onset intussusception , found on CT 01/21, not present on CT 12/12. Diverticulosis. Please call patient to schedule an appointment. Thank you. Referring Physician: Janneth Rogers [facility], Encounter Date: 01/29/2024 Multiple PEs, ex-smoker. Ple ase call patient to schedule an appointment. Thank you. Referring Physician: Ang Patterson [facility], Encounter Date: 03/12/2024 Pain Management Referral for Cervical spondylosis without myelopathy Please call patient to schedule an appointment. Thank you. Referring Physician: Ang Patterson [facility], Encounter Date: 03/31/2024 Guide Referral for Dy spnea on exertion Please call patient to schedule an appointment. Thank you. Referring Physician: Ang Patterson [facility], Encounter Date: 03/31/2024 Neurologist Referral for Kory mor B/l UE tremors for last 1-2 weeks. Please call patient to schedule an appointment. Thank you. Referring Physician: Ang Patterson [facility], Encounter Date: 04/09/2024 Results Created Date Observation Date Name Description Value Unit Range Abnormal Flag Note LastModifiedBy Organization Detail LastModifiedTime 10/01/19 24 10/02/2023 HELIC OBACT ER PYLOR I AG, EIA, STOOL helicobacter pylori Ag, EIA, stool SEE NOTE HELIC OBACT ER PYLOR I AG, EIA, STOOL Micro Numbe r: [id number] Test Statu s: Final Speci men Sourc e: Stool Speci men Quali ty: Adequ ate H.pyl martine Ag: Not Detec leti Antim icrob ials, yoselin n pump inhib itors , and bismu th prepa ratio ns inhib it H. pylor i and inges tion up to two weeks prior to testi ng may cause false negat jamey resul ts. If clini ayana indic ated the test shoul d be repea leti on a new speci men obtai harmeet two weeks after disco ntinu ing treat ment. Refer ence Range : Not Detec leti Not Available [facility] [address] [place], [address], 10/02/2023 13:18:31 04/07/20 24 04/07/2024 COLOG UARD cologuard result reportable NEGATI VE negati ve normal NEGAT JAMEY TEST RESUL T. A negat jamey Colog uard resul t indic ates a low likel ihood that a color ectal cance r (CRC) or advan james adeno ma (colton omato us polyp s with more advan james pre-m align ant featu res) is prese nt. The chanc e that a perso n with a negat jamey Colog uard test has a color ectal cance r is less than 1 in 1500 (nega tive predi ctive value >99.9 %) or has an advan james adeno ma is less than 5.3% (nega tive predi ctive value 94.7% ). These data are based on a prosp ectiv e cross -sect ional study of 10,00 0 indiv idual s at hematite ge risk for color ectal cance r who were scree harmeet with both Colog uard and colon oscop y. (Shama Carey et al, N Engl J Med 2014; 370(1 4):12 86-12 97) The sharan l value (refe rence range ) for this assay is negat jamey. COLOG UARD RE-SC REENI NG RECOM MENDA TION: Perio dic color ectal cance r scree audra is an impor tant part of preve ntive healt hcare for asymp tomat ic indiv idual s at [facility] risk for color ectal cance r. Follo wing a negat jamey Colog uard resul t, the Ameri can Cance r Socie ty and U.S. Multi -Soci ety Task Force scree audra guide lines recom mend a Colog uard re-sc tayler rea inter mariana of 3 years . Refer ences : Ameri can Cance r Socie ty Guide line for Color ectal Cance r Scree audra: https ://ww w.can cer.o rg/ca ncer/ colon -rect al-ca ncer/ detec tion- diagn osis- stagi ng/ac s-rec ommen datio ns.ht ml.; Scott RENEE, Henna grijalva CR, Marely LeaK, Color ectal Cance r Scree audra: Recom menda tions for Physi cians and Patie nts from the U.S. Multi -Soci ety Task Force on Color ectal Cance r Scree audra , Am J Terrance oente rolog y 2017; 112:1 016-1 030. TEST DESCR IPTIO N: [facility] [place] algor ithmi c genesis sis of stool DNA-b richa weinberg with hemog lobin immun oassa y. Quant itati ve value s of indiv idual bioma rkers are not repor table and are not assoc iated with indiv idual bioma rker resul t refer ence range s. Colog uard is inten ded for color ectal cance r scree audra of adult s of eithe r sex, 45 years or older , who are at [facility] for color ectal cance r (CRC) . Colog uard has been appro rohan for use by the U.S. FDA. The perfo rmanc e of Colog uard was estab lishe d in a cross secti onal study of [facility] adult s aged 50-84 . Colog uard perfo rmanc e in patie nts ages 45 to 49 years was estim ated by chayo-pia crowder genesis sis of near- age group s. Colon oscop ies perfo rmed for a posit jamey resul t may find as the most clini ayana signi fidelia t lesio n: color ectal cance r [4.0% ], advan james adeno ma (incl uding sessi le jennifer leti polyp s great er than or equal to 1cm diame ter) [20%] or non- advan james adeno ma [31%] ; or no color ectal neopl zenia [45%] . These estim ates are deriv ed from a prosp ectiv e cross -sect ional scree audra study of 0 indiv idual s at hematite ge risk for color ectal cance r who were scree harmeet with both Colog uard and colon oscop y. (Shama Carey et al, N Engl J Med 2014; 370(1 4):12 86-12 97.) Colog uard may produ ce a false negat jamey or false posit jamey resul t (no color ectal cance r or preca ncero us polyp prese nt at colon oscop y follo w up). A negat jamey Colog uard test resul t does not guara ntee the absen ce of CRC or advan james adeno ma (pre- cance r). The curre nt Colog uard scree audra inter mariana is every 3 years . (Amer ican Cance r Socie ty and U.S. Multi -Soci ety Task Force ). Colog uard perfo rmanc e data in a 0 patie nt pivot al study using colon oscop y as the refer ence metho d [facility]: www.e xactl abs.c om/re sults . Addit ional descr iptio n of the Colog uard test proce ss, warni ngs and preca ution s can be found at [email or web address] Available [facility] (Cologuard Orders Only) [address], [place], [address], 04/11/2024 17:19:08 04/12/12/13/2023 CT, abdom en + pelvi s, w/ contr ast No observ ation record ed. [address], [place], [address], 12/23/2023 09:42:22 12/30/19 24 12/30/2023 CT, cervi bimal spine , w/o contr ast No observ ation record ed. [email or web address] [address], [place], [address], 12/30/2023 14:14:10 12/30/19 24 12/30/2023 XR, lumbo sacra l spine , 2 or 3 view No observ ation record ed. [email or web address] [address], [place], [address], 12/30/2023 14:14:21 01/22/20 24 01/22/2024 XR, chest No observ ation record ed. [address], [place], [address], 01/22/2024 11:16:05 01/22/20 24 01/22/2024 LDCT, chest , for lung cance r scree audra No observ ation record ed. [address], [place], [address], 01/22/2024 17:06:54 01/22/20 24 01/22/2024 CT, angio gram, chest , w/ contr ast No observ ation record ed. [address], [place], [address], 03/12/2024 11:08:31 02/24/20 24 02/24/2024 US, doppl er echoc ardio gram No observ ation record ed. [address], [place], [address], 03/12/2024 10:02:16 03/25/20 24 03/25/2024 XR, chest , 2 view No observ ation record ed. [address], [place], [address], 03/31/2024 15:49:25 03/25/20 24 03/25/2024 CT, angio gram, chest , w/ contr ast No observ ation record ed. [address], [place], [address], 03/31/2024 15:49:25 04/02/20 24 04/02/2024 CT, brain , w/o contr ast No observ ation record ed. [address], [place], [address], 04/09/2024 11:57:47 04/02/20 24 04/02/2024 XR, chest No observ ation record ed. [address] [address], [place], [address], 04/09/2024 11:57:47 04/29/20 24 04/08/2024 imagi ng/di agnos tic resul t No observ ation record ed. [address] [address], [place], [address], 04/29/2024 09:51:53 Result Notes None recorded. Problems Name Problem SNOMED Code Status Onset Date Resolution Date Notes Provider Name and Address Organization Details Recorded Time Depressive disorder 77022004 Active 2022 Ang Patterson MD [address], [place], [address], [employer] 3 15:00:33 Anxiety disorder 478836508 Active 2022 Ang Patterson MD [address], [place], [address], [employer] 3 15:00:39 Posttraumat ic stress disorder 75463075 Active 2022 Ang Patterson MD [address], [place], [address], [employer] 3 15:00:45 Obesity 216729977 Active 2022 Ang Patterson MD [address], [place], [address], [place] [facility] [employer] 3 15:01:02 Chronic neck pain 8731895132433 Active 2022 Ang Patterson MD [address], [place], [address], [employer] 3 15:03:12 Chronic low back pain 816189090 Active 2022 Ang Patterson MD [address], [address], [place], [address], [employer] 3 15:03:20 Cervical spondylosis without myelopathy 808036238 Active 2022 Ang Patterson MD [address], [place], [address], [employer] 3 15:17:42 Ex-smoker 3567541 Active 2022 Ang Patterson MD [address], [address], [place], [address], [employer] [facility] 3 15:17:55 Degeneratio n of cervical interverteb ral disc 18187104 Active 2022 Ang Patterson MD [address], [place], [address], [employer] 3 14:38:13 Otalgia of right ear 7890739119 Active 2022 Ang Patterson MD [address], [place], [address], [place] [facility] [employer] 3 09:56:32 Chronic idiopathic constipatio n 31390991 Active 2022 Ang Patterson MD [address], [place], [address], [employer] 3 09:58:26 Gastroesoph ageal reflux disease without esophagitis 329453897 Active 2022 Ang Patterson MD [address], [address], [place], [address], [employer] 3 09:59:58 Xerostomia 80404131 Active 2022 Ang Patterson MD [address], [address], [place], [address], [employer] 3 10:05:03 Anemia 228042845 Active 2022 Ang Patterson MD [address], [address], [place], [address], [employer] 3 14:59:07 Vitamin D deficiency 34779316 Active 2023 Ang Patterson MD [address], [address], [place], [address], [employer] 4 10:31:01 Hyperlipide ana 26480753 Active 2023 Ang Patterson MD [address], [address], [place], [address], [employer] 4 10:31:30 Pain of bilateral hands 4979771968488 9109 Active 2023 Ang Patterson MD [address], [address], [place], [address], [employer] 4 10:34:43 Intussuscep tion of small intestine 827169240 Active 2023 SHIRA Mckeon [address], [address], [place], [address], [employer] 4 14:12:52 Pulmonary embolism 89185262 Active 2023 Ang Patterson MD [address] [facility], [address], [place], [address], [place] [facility] [employer] 4 10:05:37 Pulmonary embolism with pulmonary infarction 1518467186140 Active 2023 Ang Patterson MD [address] [facility], [address], [place], [address], [employer] 4 10:13:28 Dyspnea on exertion 00434384 Active 2023 Ang Patterson MD [address] [facility], [address], [place], [address], [employer] 4 15:57:53 Tremor 45137380 Active 2023 Ang Patterson MD [address] [facility], [facility] [address], [place], [address], [employer] 11:59:25 Problem Notes None recorded. Procedures Surgical History Date Name Laterality Status Provider Name and Address Organization Details Recorded Time 03/31/2024 Transition al_Care_Ma nagement completed [facility] 03/31/2024 15:42:49 03/12/2024 Transition al_Care_Ma nagement completed [facility] iodine 03/12/2024 09:52:22 Imaging Results Imaging Date Name Status LastModified by Organization Details LastModified Time 12/13/2023 CT, abdomen + pelvis, w/ contrast completed [address] [place] [address], [address], 12/23/2023 09:42:22 12/30/2023 CT, cervical spine, w/o contrast completed [address], [address], 12/30/2023 14:14:10 12/30/2023 XR, lumbosacral spine, 2 or [address] , [place], [address], 12/30/2023 14:14:21 01/22/2024 XR, chest completed [address] [address], [place], [address], 01/22/2024 11:16:05 01/22/2024 LDCT, chest, for lung cancer screening completed [address] [address], [place], [address], 01/22/2024 17:06:54 01/22/2024 CT, angiogram, chest, w/ contrast completed [address] [address], [place], [address], 03/12/2024 11:08:31 02/24/2024 US, doppler echocardiogram completed [address] [address], [place], [address], 03/12/2024 10:02:16 03/25/2024 XR, chest, 2 view completed [address] [address], [place], [address], 03/31/2024 15:49:25 03/25/2024 CT, angiogram, chest, w/ contrast completed [address] [address], [place], [address], 03/31/2024 15:49:25 04/02/2024 CT, brain, w/o contrast completed [address], [address], 04/09/2024 11:57:47 04/02/2024 XR, chest completed [address], [address], 04/09/2024 11:57:47 04/08/2024 imaging/diagnostic result completed [address], [address], 04/29/2024 09:51:53 Procedure Notes None recorded. Medical Equipment None Reported. Allergies No known drug allergies Medications Name Sig Start Date Stop Date Status Note LastModified by Organization Details LastModified Time cyclobenzap rine 10 mg tablet TAKE 1 TABLET BY MOUTH EVERY 12 HOURS NEEDED active Not Available Not Available No t Available gabapentin 600 mg tablet TAKE 1 TABLET BY MOUTH THREE TIMES DAILY DIRECTED active Not Available Not Available No t Available ipratropium 0.5 mg-albutero l 3 mg (2.5 mg base)/3 mL nebulizatio n soln USE 3 ML VIA NEBULIZER EVERY 6 TO 8 HOURS NEEDED active Not Available Not Available No t Available clindamycin HCl 300 mg capsule TAKE 1 CAPSULE BY MOUTH EVERY 8 HOURS 03/12 completed Not Available Not Available Not Available citalopram 40 mg tablet TAKE 1 TABLET BY MOUTH EVERY DAY active Not Available Not Available No t Available atorvastati n 10 mg tablet TAKE 1 TABLET BY MOUTH EVERY DAY AT BEDTIME active Not Available Not Available No t Available oxybutynin chloride ER 10 mg tablet,exte nded release 24 hr TAKE 1 TABLET BY MOUTH EVERY DAY active Not Available Not Available No t Available azithromyci n 250 mg tablet TK 2 TS PO ON DAY 1, THEN TK 1 T PO D FOR 4 DAYS active Not Available Not Available No t Available hydrocodone 5 mg-acetamin ophen 325 mg tablet TAKE 1 TABLET BY MOUTH EVERY 6 HOURS NEEDED FOR PAIN active Not Available Not Available No t Available meloxicam 15 mg tablet TAKE 1/2 TABLET BY MOUTH EVERY 12 HOURS NEEDED WITH FOOD 01/28 completed Not Available Not Available Not Available polysacchar usman iron complex 150 mg iron capsule TAKE 1 CAPSULE BY MOUTH TWICE DAILY WITH MEALS active Not Available Not Available No t Available famotidine 40 mg tablet TAKE 1 TABLET BY MOUTH EVERY DAY AT BEDTIME active Not Available Not Available No t Available prednisone 20 mg tablet TAKE 2 TABLETS BY MOUTH DAILY FOR 5 DAYS 01/28 completed Not Available Not Available Not Available clonazepam 0.5 mg tablet TAKE 1 TABLET BY MOUTH TWICE DAILY NEEDED active Not Available Not Available No t Available prednisone 5 mg tablet TAKE 1 TABLET BY MOUTH EVERY DAY active Not Available Not Available No t Available phentermine 15 mg capsule TAKE 1 CAPSULE BY MOUTH EVERY DAY IN THE MORNING 03/12 completed Not Available Not Available Not Available phentermine 37.5 mg tablet TAKE 1 TABLET BY MOUTH EVERY DAY IN THE MORNING active Not Available Not Available No t Available hydrocodone 10 mg-acetamin ophen 325 mg tablet TAKE 1 TABLET BY MOUTH EVERY 4 HOURS NEEDED FOR PAIN 03/12 completed Not Available Not Available Not Available omeprazole 40 mg capsule,del ayed release TAKE 1 CAPSULE BY MOUTH EVERY DAY IN THE MORNING active Not Available Not Available No t Available acetaminoph en 500 mg tablet TAKE 1 TABLET BY MOUTH EVERY 6 HOURS NEEDED FOR FEVER OR PAIN 04/23 completed Not Available Not Available Not Available phentermine 30 mg capsule TAKE 1 CAPSULE BY MOUTH EVERY DAY IN THE MORNING 03/12 completed Not Available Not Available Not Available baclofen 20 mg tablet TAKE 1 TABLET BY MOUTH EVERY 8 HOURS NEEDED active Not Available Not Available No t Available famotidine 20 mg tablet TAKE 1 TABLET BY MOUTH TWICE DAILY DIRECTED 03/31 completed Not Available Not Available Not Available prednisolon e acetate 1 % eye drops,suspe nsion active Not Available Not Available Not Available ciprofloxac in 0.3 % eye drops 03/12 completed Not Available Not Available Not Available meclizine 25 mg tablet TAKE 1 TABLET BY MOUTH THREE TIMES DAILY active Not Available Not Available No t Available diclofenac 0.1 % eye drops 03/12 completed Not Available Not Available Not Available prednisone 50 mg tablet TAKE 1 TABLET BY MOUTH DAILY 04/23 completed Not Available Not Available Not Available lidocaine 5 % topical patch APPLY 1 PATCH TOPICALLY TO THE SKIN DAILY NEEDED FOR BREAKTHRO UGH PAIN active Not Available Not Available No t Available losartan 25 mg tablet active Not Available Not Available No t Available docusate sodium 100 mg capsule TAKE 1 CAPSULE BY MOUTH TWICE DAILY DIRECTED active Not Available Not Available No t Available gabapentin 300 mg capsule TAKE 1 CAPSULE BY MOUTH EVERY 8 HOURS DIRECTED 03/31 completed Not Available Not Available Not Available omeprazole 20 mg capsule,del ayed release TAKE 1 CAPSULE BY MOUTH TWICE DAILY 03/19 completed Not Available Not Available Not Available diclofenac sodium 75 mg tablet,tarsha yed release TAKE 1 TABLET BY MOUTH EVERY 12 HOURS WITH FOOD NEEDED 2023 active Not Available Not Available Not Avai lable folic acid 1 mg tablet TAKE 1 TABLET BY MOUTH EVERY DAY active Not Available Not Available No t Available furosemide 20 mg tablet TAKE 1 TABLET BY MOUTH EVERY DAY IN THE MORNING active Not Available Not Available No t Available gabapentin 100 mg capsule TAKE 2 CAPSULES BY MOUTH THREE TIMES DAILY DIRECTED 06/04 completed Not Available Not Available Not Available ergocalcife rol (vitamin D2) 1,250 mcg (50,000 unit) capsule TAKE 1 CAPSULE BY MOUTH EVERY WEEK DIRECTED active Not Available Not Available No t Available polyethylen e glycol 3350 17 gram/dose oral powder DISSOLVE 17 GRAMS IN LIQUID AND DRINK BY MOUTH EVERY DAY DIRECTED active Not Available Not Available No t Available methylpredn isolone 4 mg tablets in a dose pack FOLLOW PACKAGE DIRECTION S 04/23 completed Not Available Not Available Not Available albuterol sulfate HFA 90 mcg/actuati on aerosol inhaler INHALE 2 PUFFS BY MOUTH EVERY 4 TO 6 HOURS NEEDED active Not Available Not Available No t Available ondansetron 4 mg disintegrat ing tablet DISSOLVE 1 TABLET ON THE TONGUE EVERY 8 HOURS FOR 7 DAYS NEEDED FOR NAUSEA OR VOMITING 04/23 completed Not Available Not Available Not Available fluticasone propionate 50 mcg/actuati on nasal spray,suspe nsion active Not Available Not Available Not Available amoxicillin 875 mg-potassiu m clavulanate 125 mg tablet TAKE 1 TABLET BY MOUTH EVERY 12 HOURS active Not Available Not Available No t Available neomycin-po lymyxin-hyd rocort 3.5 mg-10,000 unit/mL-1 % ear drops,susp SHAKE LIQUID AND INSTILL 3 TO 4 DROPS TO AFFECTED EAR THREE TIMES DAILY 06/25 completed Not Available Not Available Not Available azithromyci n 500 mg tablet TAKE 1 TABLET BY MOUTH DAILY FOR 5 DAYS 01/28 completed Not Available Not Available Not Available bupropion HCl XL 150 mg 24 hr tablet, extended release TAKE 1 TABLET BY MOUTH EVERY DAY active Not Available Not Available No t Available nitrofurant oin monohydrate /macrocryst als 100 mg capsule TAKE 1 CAPSULE BY MOUTH EVERY 12 HOURS FOR 5 DAYS 01/28 completed Not Available Not Available Not Available FeroSul 325 mg (65 mg iron) tablet TAKE 1 TABLET BY MOUTH TWICE DAILY AFTER A MEAL active Not Available Not Available No t Available Eliquis 5 mg tablet Take by oral route for 30 days. 2023 active Not Available Not Available Not Avai lable Anoro Ellipta 62.5 mcg-25 mcg/actuati on powder for inhalation INHALE 1 PUFF BY MOUTH DAILY active Not Available Not Available No t Available Vitals Date Recorded Body height Body temperature Heart rate Respiratory rate Oxygen saturation Oxygen saturation in Arterial blood by Pulse oximetry Systolic blood pressure Diastolic blood pressure Provider Name and Address Organization Details Last Updated DateTime 4 165.1 cm 98 [degF] 98 /min 20 /min 99 % 99 % 132 mm[Hg] 72 mm[Hg] [employer] [facility] [employer] [facility] 4 10:05:54 Date Recorded Body mass index (BMI) Body weight Provider Name and Address Organization Details Last Updated DateTime 10/24/2023 32.5 kg/m2 66750.86 g Ang Patterson MD [address], [place], [address], [facility] [employer] [facility] 10/24/2023 10:40:55 Date Recorded Body height Body temperature Heart rate Oxygen saturation Oxygen saturation in Arterial blood by Pulse oximetry Body mass index (BMI) Body weight Systolic blood pressure Diastolic blood pressure Provider Name and Address Organization Details Last Updated DateTime 4 165.1 cm 98.7 [degF] 89 /min 98 % 98 % 33 kg/m2 81171.4 4 g 173 mm[Hg] 102 mm[Hg] Tana Brown [facility] [employer] [facility] 4 14:07:48 Date Recorded Body height Body mass index (BMI) Body weight Body temperature Provider Name and Address Organization Details Last Updated DateTime 03/12/2024 165.1 cm 30.5 kg/m2 66377.75 g 98.2 [degF] [employer] [facility] [employer] [facility] 03/12/2024 09:56:29 Date Recorded Heart rate Respiratory rate Oxygen saturation Oxygen saturation in Arterial blood by Pulse oximetry Inhaled oxygen flow rate Systolic blood pressure Diastolic blood pressure Provider Name and Address Organization Details Last Updated DateTime 4 100 /min 24 /min 90 % 90 % 2 L/min 146 mm[Hg] 88 mm[Hg] Ang Patterson MD [address], [address], [address], [facility] [employer] [facility] 4 10:41:10 Date Recorded Body height Body mass index (BMI) Body weight Body temperature Systolic blood pressure Diastolic blood pressure Provider Name and Address Organization Details Last Updated DateTime 4 165.1 cm 32.1 kg/m2 24013.3 8 g 98.1 [degF] 144 mm[Hg] 90 mm[Hg] [employer] 4 15:47:52 Date Recorded Heart rate Respiratory rate Oxygen saturation Oxygen saturation in Arterial blood by Pulse oximetry Inhaled oxygen flow rate Provider Name and Address Organization Details Last Updated DateTime 4 110 /min 22 /min 94 % 94 % 2 L/min Ang Patterson MD [address], [place], [address], [employer] 4 16:08:35 Date Recorded Body height Body mass index (BMI) Body weight Body temperature Respiratory rate Systolic blood pressure Diastolic blood pressure Provider Name and Address Organization Details Last Updated DateTime 4 165.1 cm 31.8 kg/m2 01475.4 9 g 97.9 [degF] 16 /min 146 mm[Hg] 86 mm[Hg] [employer] 4 11:51:44 Date Recorded Heart rate Oxygen saturation Oxygen saturation in Arterial blood by Pulse oximetry Provider Name and Address Organization Details Last Updated DateTime 04/09/2024 96 /min 96 % 96 % Ang Patterson MD [address], [place], [address], [employer] 04/09/2024 12:43:19 Social History Question Answer Notes LastModified by Organizat ion Details LastModified Time Tobacco Smoking Status Former Smoker Ang Patterson MD [address], [place], [address], [employer] 04/23/2023 15:18:12 Do You Have An Advance Directive? No Information n ot available 04/23/2023 Is Blood Transfusion Acceptable In An Emergency? Yes Information not available 04/23/2023 What Is Your Code Status? Full Code Information not available 04/23/2023 In The 14 Days Before Symptom Onset, Have You Had Close Contact With A Laboratory-confirm ed COVID-19 While That Case Was Ill? No Information n ot available 04/23/2023 In The 14 Days Before Symptom Onset, Have You Had Close Contact With A Person Who Is Under Investigation For COVID-19 While That Person Was Ill? No Information not available 04/23/2023 Are You Currently Employed? Yes Information not available 04/23/2023 What Is The Highest Grade Or Level Of School You Have Completed Or The Highest Degree You Have Received? MD55840-2 Information not available 04/23/2023 Have There Been Any Changes To Your Family Or Social Situation? No Information no t available 04/23/2023 What Is The Fluoride Status Of Your Home? Unknown Information not available 04/23/2023 Are There Any Guns Present In Your Home? No Information not available 04/23/2023 Do You Use Insect Repellent Routinely? Yes Information not available 04/23/2023 Do You Have A Medical Power Of Chief Lending Officer? No Information not available 04/23/2023 How Many Children Do You Have? 3 Information not available 04/23/2023 Do You Have Any Pets? Yes Information not available 04/23/2023 What Is Your Relationship Status? Information not available 04/23/2023 Do You Use Your Seat Belt Or Car Seat Routinely? Yes Information not available 04/23/2023 Are You Sexually Active? No Information not available 04/23/2023 Do You Have Smoke And Carbon Monoxide Detectors In Your Home? Yes Information not available 04/23/2023 Are You Passively Exposed To Smoke? No Information no t available 04/23/2023 Are There Any Smokers In Your House? No Information not available 04/23/2023 Do You Participate In Social Media? Yes Information not available 04/23/2023 Do You Feel Stressed (tense, Restless, Nervous, Or Anxious, Or Unable To Sleep At Night)? [id number] Information not available 04/23/2023 Do You Use Sunscreen Routinely? Yes Information not available 04/23/2023 Have You Recently Traveled Abroad? No Information not available 04/23/2023 Are You Currently In School? No Information not available 04/23/2023 Do You Or Have You Ever Used Any Other Forms Of Tobacco Or Nicotine? No Information not available 04/23/2023 Sex: Female Functional Status None recorded. Mental Status None recorded. Family History Nothing Reported Notes:Parents have HTN, T2D, Medical History Condition Response BLINDNESS N RHEUMATIC FEVER N KIDNEY STONES N BLADDER PROBLEMS N MRSA N OTHER # 1 N POLIO N LUNG DISEASE/DISORDER N HISTORY OF DRUG ABUSE N COPD N RADIATION / CHEMOTHERAPY N Other # 2 N BLOOD DISEASES N SURGERY N EAR OR HEARING PROBLEMS N MUMPS N SHINGLES N FEMALE PROBLEMS / INFECTIONS N DEPRESSION (INCLUDING POST ) N BOWEL PROBLEMS N FAILED BACK SYNDROME N STROKE/TIA N THYROID DISEASE N ULCERS N BENIGN PROSTATIC HYPERPLASIA N MEASLES N CERVICALGIA N HYPOTENSION N TB SKIN TEST N MYOCARDIAL INFARCTION N OBESITY N PARAPELGIA N GERD/NAUSEA N ANEURYSM N URINARY/BLADDER/KIDNEY PROBLEMS N CORONARY ARTERY DISEASE (CAD) N Do you have Advance directive? N MENIERE'S DISEASE N ADDICTION CONCERNS N ENDOMETRIOSIS N USE OF BLOOD THINNERS N SKIN PROBLEMS N EMPHYSEMA N GASTROINTESTINAL DISORDER N PERIPHERAL ARTERY DISEASE N MUSCLE,JOINT OR BONE PROBLEMS N GASTROINTESTINAL BLEEDING N BLOOD CLOTS N ASTHMA N CATARACTS N Abdominal Pain N ERECTILE DYSFUNCTION N ARTERIAL INSUFFICIENCY N GI PROBLEMS N CHF N Low Testosterone N NEUROPATHY N INFERTILITY N AIDS/HIV N FRACTURES N CHEMOTHERAPY / RADIATION N VISION/EYE PROBLEMS N LIVER DISEASE N HYPERTENSION N TOURETTE'S N ANXIETY DISORDER N BLOOD TRANSFUSION N ANEMIA/BLOOD DISORDER N CHRONIC EAR INFECTIONS N BRONCHITIS N TUBERCULOSIS N GLAUCOMA N FOOT PROBLEM N DIVERTICULITIS N SLEEP APNEA N CHICKENPOX N ALLERGIES/HAYFEVER N BACK INJECTIONS N INFECTIOUS DISEASE N PROSTATE N HEART ARRHYTHMIA N ESRD N INSOMNIA N HIGH CHOLESTEROL / HYPERLIPIDEMIA N EYE PROBLEMS N HYPERTHYROIDISM N PVD N EATING DISORDER N EDEMA N CHRONIC PAIN SYNDROME N CAROTID BLOCKAGE N CONSTIPATION N BACK / NECK PROBLEMS N HAVE YOU BEEN HOSPITALIZED OR SEEN IN THE MEDICAL CENTER IN THE PAST YEAR ? N ATHEROSCLEROSIS N BREAST PROBLEMS N DIALYSIS N POLYCYSTIC OVARIES N ECZEMA N FIBROMYALGIA N OSTEOPOROSIS N ARTHRITIS N NO SIGNIFICANT PAST MEDICAL HISTORY N APPENDICITIS N DIABETES, TYPE N BAD TEETH N VON WILLIBRAND'S DISEASE N HEARTBURN / REFLUX N ADD/ADHD N AUTISM SPECTRUM DISORDER (ASD) N POST LAMINECTOMY SYNDROME N HEPATITIS / LIVER DISEASE N PULMONARY DISEASE N GOUT N SLEEP DISORDER N ALZHEIMER'S DISEASE N PAIN N DEMENTIA N HERPES N SEIZURES/EPILEPSY N HEADACHES/MIGRAINES N VASCULAR DISEASE N PACEMAKER N DIZZINESS N KIDNEY DISEASE N HEART DISEASE/HEART PROBLEMS N SCARLET FEVER N MULTIPLE SCLEROSIS N MENTAL DISORDER/ILLNESS N DEVELOPMENTAL OR BEHAVIORAL DISORDERS N NEUROPSYCHOLOGICAL N CANCER: SPECIFY N CARDIAC ARRHYTHMIA N PNEUMONIA N ATRIAL FIBRILLATION N Gall Stones N PULMONARY EMBOLISM N AUTOIMMUNE DISEASE N Gynecological HistoryNo gynecological history recorded. Obstetrics History GPAL:G 3 P 0 0 0 0 Past Encounters Encounter ID Performer Location Encounter Start Date Encounter Closed Date Diagnosis/Indication Diagnosis SNOMED-CT Code Diagnosis ICD10 Code [id number] Ang Patterson MD [place] [id number] 04/23/2023 14:37:09 04/23/2023 15:24:12 Depressive disorder 86121515 F32.A Anxiety disorder 0995424 F41.9 Posttrauma tic stress disorder 16594991 F43.10 Obesity 096168984 E66.9 Ex-smoker 3092297 Z87.89 1 Chronic neck pain 973941 2131 107 M54.2 Chronic low back pain 27 7462310 M54.50 Cervical s pondylosis without myelopathy 645780551 M47.534 [id number] Ang Patterson MD [address] [address] 05/14/2023 17:26:14 05/14/2023 17:49:44 Chronic neck pain 8312067632 107 M54.2 Chronic low back pain 27 4565623 M54.50 Cervical s pondylosis without myelopathy 401676213 M47.812 Depressive disorder 3548 9007 F32.A Anxiety disorder 5596143 F41.9 Posttrauma tic stress disorder 10360205 F43.10 Obesity 705522060 E66.9 Ex-smoker [id number] Z87.89 1 Degenerati on of cervical intervertebral disc 82802214 M50.30 [id number] Ang Patterson MD [address] [address] 06/04/2023 09:43:47 06/04/2023 10:27:29 Adult health examination 272471237 Z00.00 Chronic neck pain 012679 4459 107 M54.2 Chronic low back pain 27 7015624 M54.50 Obesity 600425885 E66.9 Ex-smoker 6838686 Z87.89 1 Otalgia of right ear 358 2969364 H92.01 Screening colonoscopy 44 2802813 Z12.11 Chronic id iopathic constipation 82223816 K59.04 Gastroesop hageal reflux disease without esophagitis 345632519 K21.9 Screening mammography 24 348907 Z12.31 Cervical s pondylosis without myelopathy 710833898 M47.812 Xerostomia 75463606 R68. 2 [id number] Ang Patterson MD [address] [address] 1 06/25/2023 14:39:36 06/25/2023 15:24:08 Chronic neck pain 4093746615 107 M54.2 Chronic low back pain 27 0015496 M54.50 Obesity 060776820 E66.9 Ex-smoker 3434542 Z87.89 1 Chronic id iopathic constipation 32700683 K59.04 Gastroesop hageal reflux disease without esophagitis 338569345 K21.9 Cervical s pondylosis without myelopathy 729173205 M47.812 Xerostomia 47812966 R68. 2 Anemia 452887073 D64.9 [id number] Ang Patterson MD [place] 84120294-144 1 07/18/2023 15:27:03 07/18/2023 15:47:18 Chronic neck pain 9569782063 107 M54.2 Chronic low back pain 27 2293272 M54.50 Obesity 262040445 E66.9 [id number] Ang Patterson MD [address] [address] 08/22/2023 10:25:27 08/22/2023 10:43:48 Obesity 262426847 E66.9 Gastroesop hageal reflux disease without esophagitis 132684596 K21.9 Depressive disorder 3548 9007 F32.A [id number] Ang Patterson MD [address] [address] 1 10/24/2023 09:54:39 10/24/2023 10:45:37 Gastroesophageal reflux disease without esophagitis 017962788 K21.9 Obesity 441870517 E66.9 Vitamin D deficiency 347 86156 E55.9 Hyperlipidemia 54974269 E78.5 Pain of bi lateral hands 9207088576 6469906 M79.641 Screening colonoscopy 44 1434127 Z12.11 [id number] SHIRA Mckeon [address] [address] 01/29/2024 13:56:02 01/29/2024 14:34:01 Intussusception of small intestine 177185897 K56.1 Chronic id iopathic constipation 55039217 K59.04 Obesity 163458658 E66.9 [id number] Ang Patterson MD [address] [address] 03/12/2024 09:48:48 03/12/2024 11:12:17 Vitamin D deficiency 44480673 E55.9 Hyperlipidemia 05886759 E78.5 Gastroesop hageal reflux disease without esophagitis 576807096 K21.9 Obesity 085683235 E66.9 Pain of bi lateral hands 0334442156 2973971 M79.641 Hospital i npatient stay within past 30 days 2750297782 106 Z76.89 Transition of care 32858 62940 105 Z75.8 Pulmonary embolism 54554 003 I26.99 Cervical s pondylosis without myelopathy 049565768 M47.812 Pulmonary embolism with pulmonary infarction 5488144781 102 I26.99 [id number] Ang Patterson MD [address] [address] 1 03/31/2024 15:36:12 03/31/2024 16:29:17 Transition of care 8407781786 105 Z75.8 Pulmonary embolism 62743 003 I26.99 Vitamin D deficiency 347 99928 E55.9 Hyperlipidemia 80540024 E78.5 Gastroesop hageal reflux disease without esophagitis 291976720 K21.9 Obesity 746814933 E66.9 Pain of bi lateral hands 1207754980 9804025 M79.641 Cervical s pondylosis without myelopathy 614679723 M47.812 Pulmonary embolism with pulmonary infarction 0556610633 102 I26.99 Dyspnea on exertion 6084 5006 R06.09 Screening for malignant neoplasm of colon 196248247 Z12.11 [id number] Ang Patterson MD [facility] [address] [address] 04/09/2024 11:38:36 04/09/2024 14:39:32 Transition of care 8082695197 105 Z75.8 Pulmonary embolism 05873 003 I26.99 Vitamin D deficiency 347 73176 E55.9 Hyperlipidemia 21548878 E78.5 Gastroesop hageal reflux disease without esophagitis 303329471 K21.9 Obesity 527258558 E66.9 Pain of bi lateral hands 9158908126 8689096 M79.641 Cervical s pondylosis without myelopathy 726045034 M47.812 Pulmonary embolism with pulmonary infarction 7451579423 102 I26.99 Dyspnea on exertion 6084 5006 R06.09 Tremor 77339613 R25.1 Hospital i npatient stay within past 30 days 4937605337 106 Z76.89 Health Concerns Section Related Observation LastModified by Organization Detai ls LastModified Time None Recorded Concern Status LastModified by Organization Details LastModified Time None Recorded Advance Directives Directive N: Payers Encounter Date Sequence Insurance Name Policy Number Policy Walsh Covered Member ID Walsh Member ID Guarantor Name 10/24/2023 1 *SELF PAY* Lani Phelan 01/29/2024 1 *SELF PAY* Lani rla Zhane 03/12/2024 1 *SELF PAY* Lani rla Zhane 03/31/2024 1 [place] [facility] Anat Phelan [id number] Anat Phelan 04/09/2024 1 [place] [facility] Anat Phelan [id number] Anat Phelan Notes Date Note Type Note Provider Name and Address Organization Details Recorded Time 10/24/2023 text/html Pt is here for f /u on her other labs and wt loss. Doing overall better than last visit. Denies any problem with meds. Pt has not gone for PT and GI yet. Pt says she is very busy with her work. Happy with her results. Denies any problem with meds. So far, 8 lbs wt loss on it. C/o chronic b/l hand and fingers pain for last several months. Pt had CTS surgery done in 2019 on both sides.C/o chronic neck pain and low back pain for last several years. Pt denies any MVA/trauma in the past. Pt has seen a Spine surgeon for this in the past and they recommended surgery for her neck pain; but pt doesn't want to go for any surgery. So she got few epidural shots in her neck and it did not help. Pt has chronic depression, anxiety and PTSD and is f/u with Psych at [facility] for it. Pt is on meds by them and is doing overall well with it. Denies any mood swings/SI/HI. Pt was f/u with Endo at [facility] and is on chronic Prednisone from them for last couple years. Ang Patterson MD [address] [place] [address], [phone], [facility] [employer] 10/24/2023 10:42:51 01/29/2024 text/html Anat alvarez is a 48 year old female patient of Dr. Patterson's here today for an ER follow-up Anat went to the emergency department on 01/21 with the complaint of SOB. She had an elevated D-Dimer on arrival. A CT scan was done which was negative for PE, but showed infection. She was given azithromycin 500 mg PO daily x5 days and prednisone 20 mg PO daily x5 days. She has completed these medications. Her SOB has improved.CT abdomin had incidental findings of small bowel intussusception. She was also in the ER on 12/29 for LLE pain, D/C dx of rhabo and severe cervical spondylysis. ER visit 12/01: constipation, D/C dx diverticulosis per CT scan, no evidence of intussusception at this point, elevated WBC of 10.5 on CBC. Currently she is able to have bowel movements. She is taking colase daily. She does have anxiety about these new found rapid onset of sickness. She would like to be aggressive with therapy. Her largest isidro right now is a lack of health insurance. Recommended that she apply for medicaid and speak with case managment. SHIRA Mckeon [address] [facility], [place], [address], [facility] [employer] 01/29/2024 14:33:48 03/12/2024 text/html Hospital fuv:Pt has some insurance issues going on. Pt was admitted to [facility] on 02/22/24 due to not feeling well. Pt was found to have Pneumonia, PE, pulmonary infarction, pulmonary edema. Pt has finished her antibiotics and she is on Eliquis and [place]. Pt is needing refill on them. Pt will be seeing Pulmo at [facility] in few weeks. Pt has home O2 set up done already and she has with her. Pt has seen GI in the hospital and she will be seeing them after few weeks as out pt. Pt says she is feeling overall better, but still not back to her normal. Pt is very upset due to her overall health over last couple months. Denies any chest pain/fever/chills/v/d /urinary symptoms. C/o chronic b/l hand and fingers pain for last several months. Pt had CTS surgery done in 2019 on both sides.C/o chronic neck pain and low back pain for last several years. Pt denies any MVA/trauma in the past. Pt has seen a Spine surgeon for this in the past and they recommended surgery for her neck pain; but pt doesn't want to go for any surgery. So she got few epidural shots in her neck and it did not help. Pt has chronic depression, anxiety and PTSD and is f/u with Psych at [facility] for it. Pt is on meds by them and is doing overall well with it. Denies any mood swings/SI/HI. Pt was f/u with Endo at [facility] and is on chronic Prednisone from them for last couple years. Ang Patterson MD [address], [place], [address], [place] [employer] 03/12/2024 11:10:25 03/31/2024 text/html Hospital fuv: Pt was seen in ED again on 03/25/24 due to SOB and chest pain and got work up done and was found to have Pneumonia. So pt was d/c on Z-jeanmarie and hydrocodone from ED. Pt has finished Z-jeanmarie and is feeling much better now. No fever/chills/n/v/d/sp utum. Pt will be seeing Pulmo at [facility] on 04/08/24. Pt has home O2 set up done already and she has with her. Pt was admitted to [facility] on 02/22/24 due to not feeling well. Pt was found to have Pneumonia, PE, pulmonary infarction, pulmonary edema. Pt has finished her antibiotics and she is on Eliquis and [place]. Pt is needing refill on them. Pt has seen GI in the hospital and she will be seeing them next month as out pt. C/o chronic b/l hand and fingers pain for last several months. Pt had CTS surgery done in 2019 on both sides.C/o chronic neck pain and low back pain for last several years. Pt denies any MVA/trauma in the past. Pt has seen a Spine surgeon for this in the past and they recommended surgery for her neck pain; but pt doesn't want to go for any surgery. So she got few epidural shots in her neck and it did not help. Pt has chronic depression, anxiety and PTSD and is f/u with Psych at [facility] for it. Pt is on meds by them and is doing overall well with it. Denies any mood swings/SI/HI. Pt was f/u with Endo at [facility] and is on chronic Prednisone from them for last couple years. Ang Patterson MD [address] [facility] [facility] [address], [place], [address], [employer] 03/31/2024 16:13:31 04/09/2024 text/html Hospital fuv: Pt was seen in ED on 04/02/24 due to AMS and questionable overdose and was admitted for 2 days and d/c to home after that. Pt suppose to see a Neuro there due to her b/l hands tremors, but she couldn't see one. So she needs referral for it. In the office, pt is c/o chronic back and whole body pain and she is asking for [place]. Pt is not taking her Gabapentin. Pt was seen couple weeks ago and was given Nashville by me # 40 on 03/21/24 and she got another # 10 tablets from another provider. Pt has been already referred to Pain clinic for further management for her pain concern, but she is not able to see them until 06/25. Pt denies using any illicit drugs/alcohol for last several months. Pt is using Marijuana as needed. Pt will be seeing Cardio next week. Pt is f/u with Pulmo at [facility] for her Pneumonia, PE and chronic hypoxia and is on meds by them. Pt has home O2 set up for her home. Pt was admitted to [facility] on 02/22/24 due to not feeling well. Pt was found to have Pneumonia, PE, pulmonary infarction, pulmonary edema. Pt has finished her antibiotics and she is on Eliquis and [place]. Pt is needing refill on them. Pt has seen GI in the hospital and she will be seeing them next month as out pt. C/o chronic b/l hand and fingers pain for last several months. Pt had CTS surgery done in 2019 on both sides.C/o chronic neck pain and low back pain for last several years. Pt denies any MVA/trauma in the past. Pt has seen a Spine surgeon for this in the past and they recommended surgery for her neck pain; but pt doesn't want to go for any surgery. So she got few epidural shots in her neck and it did not help. Pt has chronic depression, anxiety and PTSD and is f/u with Psych at [facility] for it. Pt is on meds by them and is doing overall well with it. Denies any mood swings/SI/HI. Pt was f/u with Endo at [facility] and is on chronic Prednisone from them for last couple years. Ang Patterson MD [address] [place] [address], [facility] [address], [place], [address], [facility] [employer] 04/09/2024 14:38:39 OBGyn Episode No OBEpisode recorded.
--- OUTSIDE RECORDS SUMMARY | 2024-08-18 21:35 | XMS_ITS | Encounter Summary ---
Author Organization [facility] Address [address] [place] [address] Care Team Providers Care Ski Lift Operator Name Role Phone Unavailable Primary Care Provider Unavailabl e Reason for Visit * Reason Comments Respiratory Distress Pain Rib Encounter Details Date Type Department Care Team (Latest Contact Info) Description 01/01/2017 6:58 PM CDT - 01/01/2017 8:47 PM CDT Hospital Encounter [facility] [address] [place] [address] Guevara Sal MD [address] [address] Discharge Disposition: Home or Self Care Social History Tobacco Use Types Packs/Day Years Used Date Smoking Tobacco: Every Day Cigarettes Tobacco Cessation:Ready to Q uit: Yes; Counseling Given: Yes Alcohol Use Standard Drinks/Week Comments No 0 (1 standard drink = 0.6 oz pur e alcohol) Comments Yes Sex and Gender Information Value Date Recorded Sex Assigned at Not on file Gender Identity Not on file Sexual Orientation Not on file documented as of this encounter Last Filed Vital Signs Vital Sign Reading Time Taken Comments Blood Pressure 140/67 01/01/2017 8:41 PM CDT Pulse 84 01/01/2017 7:35 PM CDT Temperature - - Respiratory Rate 16 01/01/2017 7:39 PM CDT Oxygen Saturation 96% 01/01/2017 8:39 PM CDT Inhaled Oxygen Concentration - - Weight 88 kg (194 lb) 01/01/2017 7:59 PM CDT Height 165.1 cm (5' 5 ) 01/01/2017 7:59 PM CDT Body Mass Index 32.28 01/01/2017 7:59 PM CDT documented in this encounter Discharge Instructions * Discharge Instr - Safety* Sena Lewis RN - 01/01/2017 8:44 PM CDT WEU [phone] documented in this encounter Medications at Time of Discharge Medication Sig Dispensed Refills Start Date End Date albuterol HFA (PROAIR HFA) 108 (90 BASE) MCG/ACT inhaler Inhale 2 Puffs by mouth every 6 hours as needed 1 Inhaler 3 01/01/2017 famotidine (PEPCID) 40 MG tablet Take 40 mg by mouth 2 times daily iron polysaccharides (NIFEREX 150) 150 MG capsule Take 150 mg by mouth once daily budesonide-formoterol (SYMBICORT) 160-4.5 MCG/ACT inhaler Inhale 2 Puffs by mouth 2 times daily 1 Inhaler 3 01/01/2017 06/15/2020 cyclobenzaprine (FLEXERIL) 10 MG tablet Take 1 Tab by mouth 3 times daily as needed for Muscle Spasms 15 Tab 01/01/2017 06/15/2020 predniSONE (DELTASONE) 10 MG tablet Take 10 mg by mouth once daily 01/02/2017 01/05/2017 Vit-Fe Fumarate-FA ( VITAMIN) 28-0.8 MG tabletIndications:Pregnan cy Take 1 Tab by mouth once daily Reasons: 06/15/2020 documented as of this encounter Plan of Treatment Scheduled Orders Name Type Priority Associated Diagnoses Order Schedule INITIATE RT BRONCHODILATOR PROTOCOL Respiratory Care Routine Viral pneumonia ONCE for 1 Occurrences starting 01/01/2017 until 01/01/2017 documented as of this encounter Procedures Procedure Name Priority Date/Time Associated Diagnosis Comments XR CHEST 1VW PORTABLE STAT 01/01/2017 7:51 PM CDT Viral pneumonia documented in this encounter Results * XR CHEST 1VW PORTABLE (01/01/2017 7:51 [...] clear. Jacquelyn Carlos MD DIAGNOSTIC IMAGING O RDERABLES documented in this encounter Visit Diagnoses Diagnosis Viral pneumonia- Primary Viral pneumonia documented in this encounter Administered Medications Inactive Administered Medications - up to 3 most recent administrations Medication Order MAR Action Action Date Dose Rate Site albuterol-ipratropium (DUO-NEB) nebulizer solution 3 mL 3 mL, Inhalation, ONCE, 1 dose, On 01/01/17 at 1945 $ Given 01/01/2017 7:34 PM CDT 3 mL cyclobenzaprine (FLEXERIL) tablet 10 mg 10 mg, Oral, ONCE, 1 dose, On 01/01/17 at 2044 $ Given 01/01/2017 8:33 PM CDT 10 mg documented in this encounter Active and Recently Administered Medications Times are shown in CDT. Scheduled Medication Order 12/30/2016 12/31/2016 01/01/2017 albuterol-ipratropium (DUO-NEB) nebulizer solution 3 mL (COMPLETED) 3 mL, Inhalation, ONCE, 1 dose, On 01/01/17 at 1945 1934 ($ Given - Prov ider: Claribel Molina RCP) cyclobenzaprine (FLEXERIL) tablet 10 mg (COMPLETED) 10 mg, Oral, ONCE, 1 dose, On 01/01/17 at 2044 2032 ($ Given - Prov ider: Sena Lewis RN) documented in this encounter
--- OUTSIDE RECORDS SUMMARY | 2024-08-18 21:35 | XMS_ITS | Encounter Summary ---
Author Organization [facility] Address [address] [place] [address] Care Team Providers Care Cottrell Operator Name Role Phone Unavailable Primary Care Provider Unavailabl e Encounter Details Date Type Department Care Team (Late st Contact Info) Description 01/01/2017 6:51 PM CDT - 01/01/2017 6:53 PM CDT Emergency ER at [address] [phone] Discharge Disposition: Still a Patient Social History Tobacco Use Types Packs/Day Years [...]
--- OUTSIDE RECORDS SUMMARY | 2024-08-18 21:35 | XMS_ITS | Encounter Summary ---
Author Organization [facility] Address [address] [place] [address] Phone Care Team Providers Care Senior Technologist Name Role Phone Kendrick Chacon MD Unavailable Edy Yadav MD Unavailable Keven Gonzalez DO Primary Care Provider [phone] Reason for Visit * Consultation (Routine) - Authorized Specialty Diagnoses / Procedures Referred By Contac t Referred To Contact Rheumatology Diagnoses Effusion of joint, unspecified location Mason Christopher MD [address] [place] [address] Phone: tel: fax: [facility] (All Locations) Referral ID Status Reason Start Date Expiration Date Visits Requested Visits Authorized [id number] Authorized Specialty Services Required 05/01/2024 05/31/2025 12 12 Encounter Details Date Type Department Care Team (Late st Contact Info) Description 07/15/2024 10:40 AM STRAINER CLEANER Office Visit [facility] Rheumatology [address] [facility] 5th [place] [address] [place] [address] Jessie Sherwood MD [address] [place] [address] Arthralgia, unspecified joint (Primary Dx); Effusion of joint, unspecified location Social History Tobacco Use Types Packs/Day Years [...] 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 Not on file Not on file documented as of this encounter Last Filed Vital Signs Vital Sign Reading Time Taken Comments Blood Pressure 135/81 07/15/2024 10:44 AM STRAINER CLEANER Pulse 70 07/15/2024 10:44 AM STRAINER CLEANER Temperature 36.7 ??C (98 ??F) 07/15/2024 10:44 AM STRAINER CLEANER Respiratory Rate - - Oxygen Saturation - - Inhaled Oxygen Concentration - - Weight 88 kg (194 lb) 07/15/2024 10:44 AM STRAINER CLEANER Height 165.1 cm (5' 5 ) 07/15/2024 10:44 AM STRAINER CLEANER Body Mass Index 32.28 07/15/2024 10:44 AM STRAINER CLEANER documented in this encounter Progress Notes * Jimena Sage MD - 07/15/2024 10:40 AM CST [facility] Division of Rheumatology This consult was requested by the doctor listed below for an opinion regarding the chief complaint listed below. Referring Physician: Mason Christopher MD [address] [place] [address] Reason for the referral: Joint effusion SUBJECTIVE: CC: Joint effusion History of Present Illness: Anat Phelan is a 48 y.o. female with PMHx significant for depression, anxiety, GERD is evaluated in the Rheumatology Clinic for evaluation of joint pain and swelling. Patient reports that her fingertips crack for the past 10 years that progressively worsens over past few months. She has severe low back pain and neck pain in 2019 and she was diagnosed with spondylosis, and spinal DJD. She states that she received many glucocorticoid injections in around [id number] and eventually developed adrenal insufficiency, and she was on prednisone 5mg daily for years before she established with a new PCP in 05/2023, who tapered off glucocorticoid. Patient states that she feels worse after she was off steroids. She has been experiencing worseningcracks on her fingertips. She also experiences pain in her hands, elbows, shoulders, and knees for the past few months, with swelling of her fingers. She is not able to put on the rings at times because of the swelling. She also reports stiffness lasting a few hours for the past few months. In 11/2023 she had an episode of urinary tract infection. Later she had shallow skin ulcerations on her new tattoo. She was told it was skin infection from tattoo although patient states that she never experienced anything similar before. In 12/2023 she was admitted for nausea/vomiting and she was found to have intussusception. She followed with local GI physician and she mentions that her EGD and colonoscopy last month only showed internal hemorrhoids, gastritis but otherwise normal, and there were no signs/symptoms of IBD (report not seen). In 01/2024, she felt progressively fatigued over 3-4 days and she was not able to get out of bed. Her entire body hurt and she felt weak especially in her trunk, thighs and upper arms. She was constantly vomiting and had diarrhea, fever and chills but she does not remember the temperature. She states that she had CT L spine, which was unremarkable (report not seen). Patient states that she was active after discharge. In 02/2024 she had sudden onset hypoxemia with generalized fatigue. She was admitted to the hospital and was found to have SpO2 61%. Later she was diagnosed with pulmonary embolism and was started Eliquis 5 mg BID and plans to treat for at least 6 months and will re-evaluate per Pulmonology. Normal ECHO in 02/2024 (per referral note, report not seen), although she was prescribed oral lasix for suspected heart failure. She later had and ED visit on 04/09/24 for small amount of hemoptysis but discharged with Rx for abx (Augmentin/ Azithyromycin) for suspected CAP. Chest CTA was negative for PE but noted infiltrates possible PNA. She established care with local electrotype caster and PFT was DLCO 90%, FEV1 mildly decreased. 6 min walk test was normal. Per patient, she will get sleep study to evaluate for CATRACHO and repeat CT scan in 09/2024. Patient has been taking baclofen and gabapentin for pain control and in 05/2024, she was hospitalized for unresponsiveness. Patient states that she was thought to have gabapentin toxicity but gabapentin level was within normal and patient denies mediation overdose. She also complains of skin erythema, especially arms, anterior chest, thighs for years and the erythema worsens when she was under the sun for long time. Patient also reports rash around the eyelid. Patient tried prednisone 40mg and then 20mg (for a total of 10 days) in June with significant improvement in generalized pain and rash. Patient endorses fatigue, fever, chills, hair loss, headache, dry eyes, dry mouth, rash, photosensitivity, Raynauds, and history of 2 miscarriages. She denies eye pain/redness, hx of scleritis/uveitis/episcleritis/iritis, oral/nasal ulcers, pleurisy. PMHx: Past Medical History: Diagnosis Date Anterolisthesis L4 on L5, grade 1 Asthma DDD (degenerative disc disease), cervical DDD (degenerative disc disease), lumbar Depression Gastric reflux GERD (gastroesophageal reflux disease) Lumbar facet arthropathy 03/15/2021 L3-L4, L4-L5, L5-S1 Lumbar spondylosis Osteoarthritis of left AC (acromioclavicular) joint PSHx: Past Surgical History: Procedure Laterality Date ANAL FISSURECTOMY 09/02/2020 CARPAL TUNNEL RELEASE Left 02/15/2021 CARPAL TUNNEL RELEASE Right 10/11/2020 SECTION CHOLECYSTECTOMY COLONOSCOPY COLONOSCOPY W/ ENDOSCOPIC US TONSILLECTOMY FamHx: Family History Problem Relation Age of Onset Arthritis Mother Hypertension Mother Diabetes Father Hypertension Father FHx: Father: Diabetes mellitus; Hypertension Mother; Hypertension; Osteoarthritis; 2 individuals with RA, one with Raynauds mother side of relatives Sister: Lupus, seronegative RA, fibromyalgia Grandparent: Breast cancer SocHx: Social History Tobacco Use Smoking status: Every Day Smokeless tobacco: Never Substance and Sexual Activity Drug use: Never Sexual activity: Not on file Alcohol Use: Not At Risk (04/27/2020) AUDIT-C Frequency of Alcohol Consumption: Never Average Number of Drinks: Not on file Frequency of Binge Drinking: Not on file She has a history of tobacco use: 1 PPD for 22 years, quitted in 2020 MEDICATIONS: Current Outpatient Medications Medication Sig Dispense Refill albuterol HFA (PROVENTIL HFA,VENTOLIN HFA,PROAIR HFA) 90 mcg/actuation inhaler Inhale 2 puffs every6 (six) hours as needed citalopram (CeleXA) 20 mg tablet Take 40 mg by mouth daily clonazePAM (KlonoPIN) 0.5 mg disintegrating tablet Take 0.5 mg by mouth nightly as needed for anxiety or seizures cyclobenzaprine (FLEXERIL) 10 mg tablet TAKE 1 TABLET BY MOUTH AT BEDTIME NEEDED 30 tablet 0 fluticasone propion-salmeteroL (AIRDUO RESPICLICK) 55-14 mcg/actuation inhaler gabapentin (NEURONTIN) 100 mg capsule Take 2 capsules (200 mg total) by mouth every 8 (eight) [id number] capsule 0 meloxicam (MOBIC) 7.5 mg tablet TAKE 1 TABLET BY MOUTH TWICE DAILY NEEDED 60 tablet 2 omeprazole (PriLOSEC) 20 mg capsule Take 20 mg by mouth daily predniSONE (DELTASONE) 5 mg tablet Take 5 mg by mouth daily terbinafine (LamISIL) 1 % cream RENNY EXT AA BID tolterodine LA (DETROL LA) 4 mg 24 hr capsule Take by mouth daily No current facility-administered medications for this visit. ALLERGIES: No Known Allergies OBJECTIVE: Physical Examination: Vitals: BP 135/81 (BP Location: Right arm, Patient Position: Sitting) Pulse 70 Temp 36.7 ??C (98 ??F) (Oral) Ht 165.1 cm (5' 5 ) Wt 88 kg (194 lb) BMI 32.28 kg/m?? General: NAD, alert. HEENT: NC/AT Resp: No difficulty breathing, no audible wheezes or abnormal sounds CV: RRR, S1/S2 wnl, no MRG Abdomen: non distended, non tender, bowel sounds audible Ext: No edema. No cyanosis or clubbing Neuro: Gait Normal. Moves all limbs independently Skin: Faint erythema over anterior chest, arms, thighs Musculoskeletal: No swelling, tenderness or warmth or joint deformities in the fingers, hands, wrists, elbows, shoulders, knees, ankles. Muscle strength 5/5 in all extremities Investigations: Labs: CRP 02/28 34.3, Alb 3.4 12/30/2023 ESR 58, CRP 11 02/24/2024 VASQUEZ negative; ANCA negative; Aditi-1, MDA5, Mi-2, EJ, SRP negative. Imaging: CTA 04/2024: CTA was negative for PE but noted infiltrates possible PNA ASSESSMENT/PLAN: 48 year old female presenting with skin rash, polyarthralgia, recent unprovoked pulmonary embolism.Broad differential including inflammatory myopathies, inflammatory arthritis and thrombophilia. - Order CBC, CMP, ESR, dsDNA, VASQUEZ, FUAD, C3, C4, CK, Aldolase, Myomarker panel, APLS panel (LAC, b2GPI Ab, cardiolipin Ab), cryoglobulin - X ray chest, and hands/wrists RTC in 3 months Patient seen and discussed with Dr. Kaela Sage MD Clinical Fellow [facility], Division of Rheumatology Cosigned by Jessie Sherwood MD at 07/21/2024 3:45 PM STRAINER CLEANER INER CLEANER INER CLEANER Associated attestation - Jessie Sherwood MD - 07/21/2024 3:45 PM STRAINER CLEANER I have seen and examined the patient. I agree with the findings and plan of care as documented in the resident/fellow's note. My total encounter time on 07/15/2024 was 60 minutes which was spent in the activities documented in the note. This includes time spent prior to the visit and after the visit in direct care of the patient. This time does not include time spent in any separately reportable services. documented in this encounter Plan of Treatment Not on file documented as of this encounter Results * X-ray chest 2 views (07/20/2024 1:14 PM STRAINER CLEANER) Anatomical Region Laterality Modality Body, Chest N/A Digital Radiogra phy 07/22/2024 9:24 PM STRAINER CLEANER Narrative 07/22/2024 9:26 PM STRAINER CLEANER EXAM DESCRIPTION: XR CHEST PA LATERAL 2 [...] D: ??07/22/2024 9:26 PM T: Report ID: [id number] Reading Location: ??[id number] Procedure Note Eh Gill MD - 07/22/2024 [...] 9:26 PM - Electronically signed by Eh BELL T: Report ID: [id number] Reading Location: [id number] Jessie Sherwood MD IMG XR PROCEDURES Final Re sult * XR Wrist Bilateral 3 or More Views (07/20/2024 1:14 PM STRAINER CLEANER) Anatomical Region Laterality Modality Upper Extremities, Wrist Digital Radiography 07/21/2024 7:09 PM STRAINER CLEANER Narrative 07/21/2024 7:48 PM STRAINER CLEANER EXAM DESCRIPTION: XR WRIST BILATERAL 3 OR MORE VIEWS; XR HAND BILATERAL 3 OR MORE VIEWS OF EACH REASON FOR STUDY: wrist pain ?? R/O erosions. History of carpal tunnel to both wrists. ?? ; hand pain ?? R/O erosions. ? FINDINGS: Three views right hand and three views right wrist submitted with comparison 01/26/2021. Right hand/wrist: Lunate and 2nd metacarpal head erosions are present. ??Ulnar positive variance is noted. ??There is mild basal thumb joint osteoarthritis. ?? There is no dorsal wrist soft tissue swelling. Left hand/wrist: There is an erosion involving the thumb proximal phalanx head. ??No acute fractures are identified. ??Ulnar positive variance is present. ??There is mild basal thumb joint osteoarthritis. IMPRESSION: Nonspecific right lunate and 2nd metacarpal head, and left thumb proximal phalanx erosions. ??These findings can be associated with inflammatory arthritis. Mild bilateral basal thumb joint osteoarthritis. THIS IS AN ELECTRONICALLY VERIFIED FINAL REPORT 07/21/2024 7:48 PM - Electronically signed by ??Eh Chu M.D. D: ??07/21/2024 7:48 PM T: Report ID: [id number] Reading Location: ??[id number] Procedure Note Eh Chu MD - 07/21/2024 EXAM DESCRIPTION: XR WRIST BILATERAL 3 OR MORE VIEWS; XR HAND BILATERAL 3 OR MORE VIEWS OF EACH REASON FOR STUDY: wrist pain R/O erosions. History of carpal tunnel to both wrists. ; hand pain R/O erosions. FINDINGS: Three views right hand and three views right wrist submittedwith comparison 01/26/2021. Right hand/wrist: Lunate and 2nd metacarpal head erosions are present. Ulnar positivevariance is noted. There is mild basal thumb joint osteoarthritis. There is no dorsal wrist soft tissue swelling. Left hand/wrist: There is an erosion involving the thumb proximal phalanx head. No acute fractures are identified. Ulnar positive variance is present. There ismild basal thumb joint osteoarthritis. IMPRESSION: Nonspecific right lunate and 2nd metacarpal head, and left thumb proximal phalanx erosions. These findings can be associated with inflammatory arthritis. Mild bilateral basal thumb joint osteoarthritis. THIS IS AN ELECTRONICALLY VERIFIED FINAL REPORT 07/21/2024 7:48 PM - Electronically signed by Eh Chu M.D. T: Report ID: [id number] Reading Location: [id number] Jessie Sherwood MD IMG XR PROCEDURES Final Re sult * XR Hand Bilateral 3 or More Views of Each (07/20/2024 1:14 PM STRAINER CLEANER) Anatomical Region Laterality Modality Upper Extremities, Hand Digital Radiography 07/21/2024 7:09 PM STRAINER CLEANER Narrative 07/21/2024 7:48 PM STRAINER CLEANER EXAM DESCRIPTION: XR WRIST BILATERAL 3 OR MORE VIEWS; XR HAND BILATERAL 3 OR MORE VIEWS OF EACH REASON FOR STUDY: wrist pain ?? R/O erosions. History of carpal tunnel to both wrists. ?? ; hand pain ?? R/O erosions. ? FINDINGS: Three views right hand and three views right wrist submitted with comparison 01/26/2021. Right hand/wrist: Lunate and 2nd metacarpal head erosions are present. ??Ulnar positive variance is noted. ??There is mild basal thumb joint osteoarthritis. ?? There is no dorsal wrist soft tissue swelling. Left hand/wrist: There is an erosion involving the thumb proximal phalanx head. ??No acute fractures are identified. ??Ulnar positive variance is present. ??There is mild basal thumb joint osteoarthritis. IMPRESSION: Nonspecific right lunate and 2nd metacarpal head, and left thumb proximal phalanx erosions. ??These findings can be associated with inflammatory arthritis. Mild bilateral basal thumb joint osteoarthritis. THIS IS AN ELECTRONICALLY VERIFIED FINAL REPORT 07/21/2024 7:48 PM - Electronically signed by ??Eh Chu M.D. D: ??07/21/2024 7:48 PM T: Report ID: [id number] Reading Location: ??[id number] Procedure Note Eh Chu MD - 07/21/2024 EXAM DESCRIPTION: XR WRIST BILATERAL 3 OR MORE VIEWS; XR HAND BILATERAL 3 OR MORE VIEWS OF EACH REASON FOR STUDY: wrist pain R/O erosions. History of carpal tunnel to both wrists. ; hand pain R/O erosions. FINDINGS: Three views right hand and three views right wrist submittedwith comparison 01/26/2021. Right hand/wrist: Lunate and 2nd metacarpal head erosions are present. Ulnar positivevariance is noted. There is mild basal thumb joint osteoarthritis. There is no dorsal wrist soft tissue swelling. Left hand/wrist: There is an erosion involving the thumb proximal phalanx head. No acute fractures are identified. Ulnar positive variance is present. There ismild basal thumb joint osteoarthritis. IMPRESSION: Nonspecific right lunate and 2nd metacarpal head, and left thumb proximal phalanx erosions. These findings can be associated with inflammatory arthritis. Mild bilateral basal thumb joint osteoarthritis. THIS IS AN ELECTRONICALLY VERIFIED FINAL REPORT 07/21/2024 7:48 PM - Electronically signed by Eh Chu M.D. T: Report ID: [id number] Reading Location: [id number] Jessie Sherwood MD IMG XR PROCEDURES Final Re sult * Rheumatoid factor (07/15/2024 12:49 PM STRAINER CLEANER) Rheumatoid factor, quant 10.0 0.1 - 15.0 IUnits/mL Blood 07/15/2024 12:4 9 PM STRAINER CLEANER 07/15/2024 1:11 PM STRAINER CLEANER Jessie Sherwood MD LAB BLOOD ORDERABLES Final Result [facility] Department [place] [address] * Myomarker panel 3 (07/15/2024 12:49 PM STRAINER CLEANER) Anti-Aditi-1 ab <20 <20 Units [facility]ae ref Lab Anti PL-7 ab Negative Negative [facility] Comment: This test was developed and its performance characteristics determined by [facility]. It has not been cleared or approved by the Food and Drug Administration. Anti PL-12 ab Negative Negative [facility] Comment: This test was developed and its performance characteristics determined by [facility]. It has not been cleared or approved by the Food and Drug Administration. Anti EJ ab Negative Negative [facility] Comment: This test was developed and its performance characteristics determined by [facility]. It has not been cleared or approved by the Food and Drug Administration. Anti OJ ab Negative Negative [facility] Comment: This test was developed and its performance characteristics determined by [facility]. It has not been cleared or approved by the Food and Drug Administration. Anti SRP ab Negative Negative [facility] Comment: This test was developed and its performance characteristics determined by [facility]. It has not been cleared or approved by the Food and Drug Administration. Anti Mi-2 ab Negative Negative [facility] Comment: This test was developed and its performance characteristics determined by [facility]. It has not been cleared or approved by the Food and Drug Administration. Polymyositis PM-SCL ab <20 <20 Units [facility] Comment: This test was developed and its performance characteristics determined by [facility]. It has not been cleared or approved by the Food and Drug Administration. Fibrillarin U3 ab Negative Negative [facility] Comment: This test was developed and its performance characteristics determined by [facility]. It has not been cleared or approved by the Food and Drug Administration. ?Interpretation for Anti-Aditi-1, [id number], ?Anti-MDA-5, Anti-NXP-2, Anti-PM/Scl-100, ?Anti-SS-A 52 kD, Anti-U1 EARRING MAKER: ?Negative: ?<20 ?Weak Positive: ? 20 - 39 ?Moderate Positive: ? 40 - 80 ?Strong Positive: ? >80 ?. Test Performed by: [facility] [address] [place] [address] Anti U2 SN EARRING MAKER ab Negative Negative [facility] Comment: This test was developed and its performance characteristics determined by [facility]. It has not been cleared or approved by the Food and Drug Administration. Anti U1RNP ab <20 <20 Units [facility] Anti KU ab Negative Negative [facility] Comment: This test was developed and its performance characteristics determined by [facility]. It has not been cleared or approved by the Food and Drug Administration. P155/140 ab <20 <20 Units [facility] Comment: This test was developed and its performance characteristics determined by [facility]. It has not been cleared or approved by the Food and Drug Administration. MDA-5 P140 ab <20 <20 Units [facility] Comment: This test was developed and its performance characteristics determined by [facility]. It has not been cleared or approved by the Food and Drug Administration. NXP-2 P140 ab <20 <20 Units [facility] Comment: This test was developed and its performance characteristics determined by [facility]. It has not been cleared or approved by the Food and Drug Administration. SSA52 KD ab IgG <20 <20 Units [facility] Comment: This test was developed and its performance characteristics determined by [facility]. It has not been cleared or approved by the Food and Drug Administration. Blood 07/15/2024 12:4 9 PM STRAINER CLEANER 07/15/2024 1:48 PM STRAINER CLEANER Jessie Sherwood MD LAB BLOOD ORDERABLES Final Result Performing Organization Address [facility] [place] [address] [facility] ref Lab * Hepatitis C antibody Blood (07/15/2024 12:49 PM STRAINER CLEANER) Hep C Ab Nonreactive Nonreactive Comment:Antibodies to HCV no t detected. Does NOT exclude the possibility of recent exposure to HCV. Current interpretive data was last revised on 22 Blood 07/15/2024 12:4 9 PM STRAINER CLEANER 07/15/2024 1:25 PM STRAINER CLEANER Jessie Sherwood MD LAB MICROBIOLOGY - GENERAL ORDERABLES Final Result Performing Organization Address [facility] [place] [address] * Hepatitis B Surface Antigen Blood (07/15/2024 12:49 PM STRAINER CLEANER) Pathologist [facility] HepBsAg Nonreactive Nonreactive Blood 07/15/2024 12:4 9 PM STRAINER CLEANER 07/15/2024 1:25 PM STRAINER CLEANER Jessie Sherwood MD LAB MICROBIOLOGY - GENERAL ORDERABLES Final Result Performing Organization Address [facility] Co de Phone Number [facility] [place] [employer] [place] [address] * Hepatitis B surface antibody (immune status) Blood (07/15/2024 12:49 PM STRAINER CLEANER) HBsAb (immune status) Reactive Comment:This result is consi stent with immunity to Hepatitis B Virus when used in the setting of routine screening. Current interpretive data was last revised on 22 HBsAb (immune status) index 219.0 mIUnits/m L [facility] Blood 07/15/2024 12:4 9 PM STRAINER CLEANER 07/15/2024 1:25 PM STRAINER CLEANER Jessie Sherwood MD LAB MICROBIOLOGY - GENERAL ORDERABLES Final Result Performing Organization Address City/[facility] Co de Phone Number [facility] Department [place] [address] * Erythrocyte sedimentation rate (07/15/2024 12:49 PM STRAINER CLEANER) Pathologist [facility] Erythrocyte sedimentation rate 6 1 - 20 mm/hr Blood 07/15/2024 12:4 9 PM STRAINER CLEANER 07/15/2024 1:11 PM STRAINER CLEANER Jessie Sherwood MD LAB BLOOD ORDERABLES Final Result Performing Organization Address [facility] de Phone Number [facility] [place] [address] * FUAD ab eval w/reflex (07/15/2024 12:49 PM STRAINER CLEANER) [facility] FUAD ab Negative Negative Comment: Interpretive Data Positive Screens will be reflexed to specific testing for Antibodies against the following antigens: Aditi-1 Ab, EARRING MAKER Ab, Scl-70 Ab, Dickinson Ab, SS-A/Ro Ab, and SS- B/La Ab. Further testing for dsDNA, Centromere, or Ribosomal P antibodies is suggested in patient with a positive screen and negative specific antibodies. Current interpretive data was last revised on 2023. Blood 07/15/2024 12:4 9 PM STRAINER CLEANER 07/15/2024 1:11 PM STRAINER CLEANER Jessie Sherwood MD LAB BLOOD ORDERABLES Final Result Performing Organization Address [facility] Co de Phone Number [facility] [place] [address] * Cyclic citrul peptide antibody, IgG (07/15/2024 12:49 PM STRAINER CLEANER) Pathologist [facility] CCP Ab <0.5 <=2.9 units/mL Comment: Interpretive data Negative: <3 units/mL Positive: > or equal to 3 units/mL Current interpretive data was last revised on 2016. Blood 07/15/2024 12:4 9 PM STRAINER CLEANER 07/15/2024 1:11 PM STRAINER CLEANER us Jessie Sherwood MD LAB BLOOD ORDERABLES Final Result Performing Organization Address City/[facility] Co de Phone Number [facility] [place] [address] * Cryoglobulin, Serum and Plasma (07/15/2024 12:49 PM STRAINER CLEANER) Cryoglobulin, quant See Footnote Negative [facility] Comment: Negative. This test is negative at 24 hours. All samples are held and reviewed again at 7 days. If delayed precipitation occurs after 7 days, Immunofixation will be performed and an additional report will follow. Cryofibrinogen Negative Negative [facility] Comment: Test Performed by: [facility] [address] [place] [address] Personal Financial Planner: Jacqueline Dinero Ph.D.; CLIA# [id number] Blood 07/15/2024 12:4 9 PM STRAINER CLEANER 07/15/2024 2:16 PM STRAINER CLEANER Jessie Sherwood MD LAB BLOOD ORDERABLES Final Result Performing Organization Address [facility] Co de Phone Number [facility] [place] [address] [facility] * Creatine kinase (CK), total (07/15/2024 12:49 PM STRAINER CLEANER) CK 135 30 - 200 Units/L Blood 07/15/2024 12:4 9 PM STRAINER CLEANER 07/15/2024 1:11 PM STRAINER CLEANER Jessie Sherwood MD LAB BLOOD ORDERABLES Final Result Performing Organization Address City/[facility] Co de Phone Number [facility] [place] [address] * (ABNORMAL) Comprehensive metabolic panel (07/15/2024 12:49 PM STRAINER CLEANER) Sodium 142 135 - 145 mmol/L Potassium, pl 3.0(L) 3.3 - 4.9 mmol/L [facility] Chloride 103 97 - 110 mmol/L [facility] CO2 28 22 - 32 mmol/L [facility] Anion gap 11 2 - 15 mmol/L [facility] BUN 8 6 - 25 mg/dL [facility] Creatinine 0.76 0.60 - 1.10 mg/dL [facility] Glucose 85 70 - 199 mg/dL [facility] Comment: Interpretive Data Fasting glucose >/= 126 mg/dl is diagnostic for diabetes. ?? Fasting is defined as no caloric intake for at least 8 hours. Fasting glucose between 100 mg/dl to 125 mg/dl is diagnostic of prediabetes. In a patient with classic symptoms of hyperglycemia or hyperglycemic crisis, a random glucose >/= 200 mg/dl is diagnostic for diabetes. In the absence of unequivocal hyperglycemia, results should be confirmed by repeat testing. The classification and Diagnosis of Diabetes Diabetes Care 2021; 46: S19-S40. Current interpretive data was last revised 2022. Calcium 9.1 8.5 - 10.3 mg/dL [facility] Bilirubin, total 0.4 0.1 - 1.2 mg/dL [facility] Protein, pl 6.2(L) 6.5 - 8.5 g/dL [facility] Albumin 4.3 3.5 - 5.0 g/dL [facility] Alk phos 87 40 - 130 Units/L [facility] ALT 19 7 - 45 Units/L [facility] AST 20 10 - 45 Units/L [facility] Blood 07/15/2024 12:4 9 PM STRAINER CLEANER 07/15/2024 1:11 PM STRAINER CLEANER us Jessie Sherwood MD LAB BLOOD ORDERABLES Final Result ARAVIND LOPEZ [facility] Department [place] [address] * (ABNORMAL) CBC with auto differential (07/15/2024 12:49 PM STRAINER CLEANER) [facility] WBC 6.5 3.8 - 9.9 K/cumm Hgb 11.5(L) 11.9 - 15.5 g/dL [facility] Hct 36.5 35.6 - 45.5 % [facility] Plt 292 150 - 400 K/cumm [facility] MPV 9.3 9.1 - 12.3 fL [facility] RBC 3.99 3.90 - 5.20 M/cumm [facility] MCV 91.5 81.3 - 96.4 fL [facility] MCH 28.8 27.1 - 33.3 pg [facility] MCHC 31.5(L) 32.3 - 35.7 g/dL [facility] RDW CV 14.3 11.1 - 14.9 % [facility] RDW SD 48.4(H) 35.7 - 48.1 fL [facility] NRBC abs 0.00 0.00 - 0.01 K/cumm [facility] Blood 07/15/2024 12:4 9 PM STRAINER CLEANER 07/15/2024 1:11 PM STRAINER CLEANER us Jessie Sherwood MD LAB BLOOD ORDERABLES Final Result [facility] [place] [address] * Cardiolipin antibody, IgM (07/15/2024 12:49 PM STRAINER CLEANER) [facility] Cardiolipin, IgM 8.0 <=19.9 MPL U/mL Comment: Interpretive Data Negative: <20 MPL U/mL Positive: > or = 20 MPL U/mL Anticardiolipin antibodies are associated with certain clinical events including unexplained arterial and venous thromboemboli, and unexplained morbidity. However, detection of low levels of anticardiolipin antibodies occurs in both healthy individuals and patients with co-morbidities not associated with the antiphospholipid antibody (APA) syndrome including inflammatory and infectious conditions. In order to improve specificity, the International Congress on Antiphospholipid Antibodies recommends ACL antibodies of IgG or IgM isotype present in medium or high titer (e.g. > 40 MPL, or >the 99th percentile), on two or more occasions, at least 12 weeks apart, to support a diagnosis of antiphospholipid syndrome. The cutoff for this assay was developed from data based on the 99th percentile. ?? In addition, the International Congress on Antiphospholipid Antibodies does not recommend testing for IgA EMELYN. The ACL IgM test can produce false positive results due to cross- reactivity with Rheumatoid factor, dsDNA or certain infectious disease antibodies. ??These results were obtained with the Geneix 2200 System. Cardiolipin IgM values obtained with different manufacturers' assay methods may not be used interchangeably. Current interpretive data was last revised on 2017. Blood 07/15/2024 12:4 9 PM STRAINER CLEANER 07/15/2024 1:12 PM STRAINER CLEANER Jessie Sherwood MD LAB BLOOD ORDERABLES Final Result ARAVIND [facility] [place] [address] * Cardiolipin antibody, IgG (07/15/2024 12:49 PM STRAINER CLEANER) Cardiolipin, IgG <1.6 <=19.9 GPL U/mL Comment: Interpretive Data Negative: <20 GPL U/mL Positive: > or = 20 GPL U/mL Anticardiolipin antibodies are associated with certain clinical events including unexplained arterial and venous thromboemboli, and unexplained morbidity. However, detection of low levels of anticardiolipin antibodies occurs in both healthy individuals and patients with co-morbidities not associated with the antiphospholipid antibody (APA) syndrome including inflammatory and infectious conditions. In order to improve specificity, the International Congress on Antiphospholipid Antibodies recommends ACL antibodies of IgG or IgM isotype present in medium or high titer (e.g. > 40 GPL, or >the 99th percentile), on two or more occasions, at least 12 weeks apart, to support a diagnosis of antiphospholipid syndrome. The cutoff for this assay was developed from data based on the 99th percentile. In addition, the International Congress on Antiphospholipid Antibodies does not recommend testing for IgA EMELYN. These results were obtained with the Geneix 2200 System. Cardiolipin IgG values obtained with different manufacturers' assay methods may not be used interchangeably. Current interpretive data was last revised on 2017. Blood 07/15/2024 12:4 9 PM STRAINER CLEANER 07/15/2024 1:12 PM STRAINER CLEANER Jessie Sherwood MD LAB BLOOD ORDERABLES Final Result Performing Organization Address City/[facility] Co de Phone Number [facility] [place] [address] * C4 complement (07/15/2024 12:49 PM STRAINER CLEANER) Complement C4 16.1 10.0 - 40.0 mg/dL Blood 07/15/2024 12:4 9 PM STRAINER CLEANER 07/15/2024 1:11 PM STRAINER CLEANER Jessie Sherwood MD LAB BLOOD ORDERABLES Final Result Performing Organization Address [facility] Co de Phone Number [facility] [place] [address] * C3 complement (07/15/2024 12:49 PM STRAINER CLEANER) Complement C3 129.0 90.0 - 180.0 mg/dL Blood 07/15/2024 12:4 9 PM STRAINER CLEANER 07/15/2024 1:11 PM STRAINER CLEANER Jessie Sherwood MD LAB BLOOD ORDERABLES Final Result Performing Organization Address City/[facility] Co de Phone Number [facility] [place] [address] * Anti-double stranded DNA abs (07/15/2024 12:49 PM STRAINER CLEANER) dsDNA Ab 2.0 <=4.0 IUnits/mL Comment: Interpretive Data Negative: < or = 4 IUnits/mL Indeterminate: 5 - 9 IUnits/mL Positive: > or = 10 IUnits/mL Current interpretive data was last revised on 2017. Blood 07/15/2024 12:4 9 PM STRAINER CLEANER 07/15/2024 1:11 PM STRAINER CLEANER Jessie Sherwood MD LAB BLOOD ORDERABLES Final Result Performing Organization Address [facility] de Phone Number [facility] [place] [address] * VASQUEZ ab ql w/rflx to VASQUEZ qn (07/15/2024 12:49 PM STRAINER CLEANER) Pathologist [facility] VASQUEZ Negative Comment: Interpretive Data Normal range for VASQUEZ Qualitative Antibody = Negative. 1. VASQUEZ is performed using indirect immunofluorescence against HEp-2 cells 2. VASQUEZ titers are performed on all positive qualitative results. 3. A significantly positive VASQUEZ result is defined as a positive nuclear fluorescence at a titer of 1:80 or greater. 4. 15% of normal people above age 65 have significantly positive VASQUEZ results. ??5% or less of normal people age 65 or under have significantly positive VASQUEZ results. Current interpretive data was last revised on 2020. Blood 07/15/2024 12:4 9 PM STRAINER CLEANER 07/15/2024 1:11 PM STRAINER CLEANER Jessie Sherwood MD LAB BLOOD ORDERABLES Final Result Performing Organization Address [facility] Co de Phone Number [facility] [place] [address] * Aldolase (07/15/2024 12:49 PM STRAINER CLEANER) Pathologist [facility] Aldolase 6.6 0.1 - 8.0 Units/L Blood 07/15/2024 12:4 9 PM STRAINER CLEANER 07/15/2024 1:11 PM STRAINER CLEANER us Jessie Sherwood MD LAB BLOOD ORDERABLES Final Result ARAVIND SCHMITT [facility] [place] [address] documented in this encounter Visit Diagnoses Diagnosis Arthralgia, unspecified joint- Primary Effusion of joint, unspecified location Effusion of joint, unspecified location Arthralgia, unspecified joint Effusion of joint, unspecified location Arthralgia, unspecified joint Effusion of joint, unspecified location Arthralgia, unspecified joint documented in this encounter Discontinued Medications Medication Sig Discontinue Reason Start Date End Da te meloxicam (MOBIC) 7.5 mg tablet TAKE 1 TABLET BY MOUTH TWICE DAILY NEEDED 06/05/2021 07/15/2024 documented as of this encounter Historical Medications * This list may reflect changes made after this encounter. umeclidinium-victorina anteroL (ANORO ELLIPTA) 62.5-25 mcg/actuation blister with device 1 puff daily polyethylene glycol (MIRALAX) 17 gram/dose bulk powder DISSOLVE 17 GRAMS IN LIQUID AND DRINK BY MOUTH EVERY DAY DIRECTED ipratropium-albu teroL (DUO-NEB) 0.5-2.5 mg/3 mL nebulizer solution USE 3 ML VIA NEBULIZER EVERY 6 TO 8 HOURS NEEDED furosemide (LASIX) 20 mg tablet Take 1 tablet (20 mg total) by mouth daily FeroSuL 325 mg (65 mg iron) tablet TAKE 1 TABLET BY MOUTH TWICE DAILY AFTER A MEAL Pepcid 40 mg tablet 06/11/2023 ergocalciferol (VITAMIN D) 50,000 unit capsule TAKE 1 CAPSULE BY MOUTH EVERY WEEK DIRECTED 07/12/2021 docusate sodium (COLACE) 100 mg capsule TAKE 1 CAPSULE BY MOUTH TWICE DAILY DIRECTED diclofenac DR (VOLTAREN) 75 mg EC tablet TAKE 1 TABLET BY MOUTH EVERY 12 HOURS WITH FOOD NEEDED buPROPion XL (WELLBUTRIN XL) 150 mg 24 hr tablet Take 1 tablet (150 mg total) by mouth daily baclofen (LIORESAL) 20 mg tablet Take 1 tablet (20 mg total) by mouth every 8 (eight) hours as needed atorvastatin (LIPITOR) 10 mg tablet Take 1 tablet (10 mg total) by mouth nightly at bedtime Eliquis 5 mg tablet Take by oral route for 30 days. 03/02/2024 acetaminophen (TYLENOL) 500 mg tablet Acetaminophen Extra Strength 500 mg tablet 04/11/2020 added in this encounter Orders Outpatient Referral Count Last Ordered Date Fir st Ordered Date AMB REFERRAL TO RHEUMATOLOGY 1 07/15/2024 documented in this encounter Care Teams Senior Technologist Relationship Specialty Start Date End Date Keven Gonzalez DO [address] [place] [address] PCP - General Family Medicine 05/29/24 Kendrick Chacon MD Emergency Medicine 04/27/20 Edy Yadav MD [address] [place] [place] [address] Consulting Physician Pain Management 04/28/21 documented as of this encounter
--- OUTSIDE RECORDS SUMMARY | 2024-08-18 21:35 | XMS_ITS | Encounter Summary ---
Author Organization [facility] Address [address] [place] [address] Care Team Providers Care Counselling Psychologist Name Role Phone Unavailable Primary Care Provider Unavailabl e Reason for Visit * Reason Comments Establish Care C-SPINE Encounter Details Date Type Department Care Team (Late st Contact Info) Description 06/15/2020 10:00 AM CDT Office Visit [facility] Neurosurgery [address] [place] [address], [address] [place] [address] Jakob Evans MD [facility] [address] Neck pain (Primary Dx) Social History Tobacco Use Types Packs/Day Years [...] Sign Reading Time Taken Comments Blood Pressure 116/67 06/15/2020 10:13 AM CDT Pulse 74 06/15/2020 10:13 AM CDT Temperature 36.5 ??C (97.7 ??F) 06/15/2020 10:13 AM C DT Respiratory Rate - - Oxygen Saturation 100% 06/15/2020 10:13 AM CDT Inhaled Oxygen Concentration - - Weight 88 kg (194 lb) 06/15/2020 10:13 AM CDT Height 165.1 cm (5' 5 ) 06/15/2020 10:13 AM CDT Body Mass Index 32.28 06/15/2020 10:13 AM CDT documented in this encounter Patient Instructions * Patient Instructions* Nazanin Maddox APRN-CNP - 06/15/2020 10:28 AM CDT We will need reports from EMG/NCS -bring them to your next visit or fax reports to [phone] Recommend continuing conservative management -we will refer you to pain management Follow up with Orthopedic surgery for shoulder pain Follow up with Dr. Evans after orthopedic workup -Bring CD of MRI to next appointment For any questions call Radha at [phone] documented in this encounter Progress Notes * Nazanin Maddox APRN-CNP - 06/15/2020 10:35 AM CDT Neurosurgery Clinic Progress Note Chief Complaint (CC): Neck pain HISTORY OF PRESENT ILLNESS (HPI): Patient is a 44 year old right handed female with no significant past medical history, who presentsto clinic today for evaluation of neck pain. The patient reports her neck pain started around June 2019 and worsened in December of this year. She denies any recent injury or trauma. Patient describes neck pain that radiates into her right shoulder, and occasional right upper arm. She denies any radicular pain sown her arms. She does endorse some numbness and tingling in her right hand in the ring and small finger as well as the left hand affecting the thumb, index, and middle finger. She denies any difficulty with dexterity or gait. She reports her pain worsens with activity such as lifting items above shoulder level or driving. She currently manages symptoms with OTC tylenol and aleve, but they do not provide relief. The patient has not had any physical therapy, but does have a referral. She states she has not had it set up yet. She has underwent 2 trigger point injections in her shoulders with some relief. The patient reports she had a EMG/NCS last month but did not bring the results today. She states the ordering provider of the EMG told her to follow up with a hand specialist. PMH: Past Medical History: Diagnosis Date ??? History of anemia ??? History of UTI PSH: No past surgical history on file. Meds: Current Outpatient Medications Medication ??? albuterol HFA (PROAIR HFA) 108 (90 BASE) MCG/ACT inhaler ??? citalopram (CELEXA) 20 MG tablet ??? famotidine (PEPCID) 40 MG tablet ??? Flunisolide HFA (AEROSPAN) 80 MCG/ACT ??? iron polysaccharides (NIFEREX 150) 150 MG capsule ??? omeprazole (PRILOSEC) 20 MG capsule No current facility-administered medications for this visit. Allergies No Known Allergies Social: Social History Tobacco Use ??? Smoking status: Current Every Day Smoker Packs/day: 0.50 ??? Smokeless tobacco: Never Used Substance Use Topics ??? Alcohol use: No Family: No family history on file. REVIEW OF SYSTEMS Constitutional: Negative Eyes: Negative Ears, nose, mouth, throat, and face: Negative Respiratory: Negative Cardiovascular: Negative Gastrointestinal: Negative Genitourinary:negative Integument/breast: negative Hematologic/lymphatic: Negative Musculoskeletal:Positive for joint pain, neck pain Neurological: Positive for numbness or tingling bilateral hand(s), right ring and small finger; left thumb, index, and middle finger finger(s) PHYSICAL EXAM BP 116/67 Pulse 74 Temp 97.7 ??F (36.5 ??C) Ht 5' 5 (1.651 m) Wt 194 lb (88 kg) SpO2 100% BMI 32.28 kg/m2 General: Patient does not appear to be in distress. HEENT: pupils equal and reactive to light, extra-occular muscles intact, face symmetric, tongue midline. Cardiovascular: warm, well profused Respiratory: non-labored breathing Integument: no lesions found. Neuro: Mental status: Alert, attentive, and oriented x3 (name, place, date). Speech is clear and fluent. Motor: Muscle bulk and tone are normal. Deltoid Bicep Tricep Health Information Technologist Wrist Ext Finger ext Hip Flexor Quad Hamstring Tib Ant Gastroc EHL Right 5 5 5 5 5 5 5 5 5 5 5 5 Left 5 5 5 5 5 5 5 5 5 5 5 5 Reflexes: No Clonus, No Zuniga's Biceps Triceps Patellar Achilles Right 2+ 2+ 2+ 2+ Left 2+ 2+ 2+ 2+ Sensory: Light touch intact in upper and lower extremities Coordination: No fasciculations Gait/Stance: Posture is normal. No obvious coronal or sagittal imbalance. Heel and toe walking are normal. Negative Rhomberg Special Test: Spurling's maneuver negative. Pain noted on passive ROM with bilateral shoulders, R>L. Tinel test positive at right ulnar and left median nerves. RADIOLOGY: 05/11/2020: MRI CERVICAL SPINE WO: IMPRESSION: 1. Spastic paraspinal muscles 2. Spondylodegenerative cervical disc disease. 3. C3-C4: There is 3.3mm annular bulge/osteophytic complex 4. C4-C5: There is 2.1mm annular bulge and 4.4mm central posterior herniation/osteophytic complex 5. C5-C6: There is 2.4mm annular bulge and 3.1mm right paracentral herniation/osteophytic complex 6. C6-C7: There is 1.7mm annular bulge and 3.6mm central posterior herniation/osteophytic complex 7. With consequent neural compromise at each segmental level as individually detailed above. Effects are augmented by arthropatic uncovertebral joints. 8. Focal degenerative Modic II marrow change. EMG/NCS: Report is unavailable today Assessment/Plan: Anat Phelan is a 44 year old female with no significant past medical history, who presents to clinic today for evaluation of neck pain. Patient reports neck pain started around June 2019and worsened in December of this year. She describes neck pain that radiates into her right shoulder. She does not have any radicular symptoms down her arms. The patient also describes numbness and tingling in her bilateral hands that could be consistent with a right ulnar nerve entrapment and left carpal tunnel given positive Tinel's sign. Patient had recent EMG/NCS of upper extremities that are not available for review today. MRI Cervical spine from 05/11/2020 demonstrated multilevel degenerative disc disease with multilevel disc bulges. Patient does not describe a clear cervical radiculopathy, and we cannot rule out shoulder pathology on the right with painful passive shoulder ROM. Recommend patient have EMG/NCS reports sent to our office. Patient is to continue conservative management withphysical therapy. We will refer the patient to pain management for evaluation and possible injection s. Patient to follow up with her orthopedic surgeon for her shoulder pain. We will have the patientfollow up in clinic once orthopedic workup is completed. MARY Ramirez 06/15/2020 10:36 AM documented in this encounter Plan of Treatment Not on file documented as of this encounter Visit Diagnoses Diagnosis Neck pain- Primary Cervicalgia documented in this encounter
--- OUTSIDE RECORDS SUMMARY | 2024-08-18 21:35 | XMS_ITS | Encounter Summary ---
Author Organization [facility] Address [address] [place] [address] Care Team Providers Care Endbander Name Role Phone Kendrick Chacon MD Primary Care Provider [phone] Kendrick Chacon MD Unavailable Reason for Referral * Consultation (Routine) - Closed Specialty Diagnoses / Procedures Referred By Contac t Referred To Contact Pain Management Diagnoses DDD (degenerative disc disease), lumbar Anterolisthesis Lumbar spondylosis Thelma Rosa NP [address] [place] [address] [address] [place] [address] Phone: tel: fax: Maribell Tomlinson MD [address] [place] [address] [address] [place] [address] Phone: tel: fax: Referral ID Status Reason Start Date Expiration Date V isits Requested Visits Authorized [id number] Closed Specialty Services Required 03/17/2021 04/16/2022 1 1 Question Answer Please select the performing region: External Order [171] To provider: MARIBELL TOMLINSON [[id number]] # of visits: 1 Comments Evaluate and treat DDD lumbar Facet arthropathy Encounter Details Date Type Department Care Team (Late st Contact Info) Description 03/17/2021 Refill [facility] Orthopedics and Sports Medicine [address] [place] [address] [address] [place] [address] Thelma Rosa, FLAMER [facility] LASTING [address] [facility] [address] [place] [id number] DDD (degenerative disc disease), lumbar (Primary Dx); Anterolisthesis; Lumbar spondylosis Social History Tobacco Use Types Packs/Day Years [...] 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 Also called maria ines script for flexeril 10 mg, take 1 tab PO HS PRN; qty 30; no refills. documented in this encounter Plan of Treatment Scheduled Referrals Name Type Priority Associated Diagnoses Orde r Schedule Ambulatory referral to Pain Management Outpatient Referral Routine DDD (degenerative disc disease), lumbar Anterolisthesis Lumbar spondylosis Expected: 03/31/2021 (Approximate), Expires: 03/17/2022 documented as of this encounter Visit Diagnoses Diagnosis DDD (degenerative disc disease), lumbar- Primary Degeneration of lumbar or lumbosacral intervertebral disc Anterolisthesis Lumbar spondylosis Lumbosacral spondylosis without myelopathy documented in this encounter Discontinued Medications Medication Sig Discontinue Reason Start Date End Da te methocarbamoL (ROBAXIN) 500 mg tablet Take 1-2 tablets PO HS 03/03/2021 03/17/2021 documented as of this encounter Care Teams Endbander Relationship Specialty Start Date End Date Kendrick Chacon MD PCP - General 04/27/20 04/30/24 Kendrick Chacon MD Emergency Medicine 04/27/20 documented as of this encounter
--- OUTSIDE RECORDS SUMMARY | 2024-08-18 21:35 | XMS_ITS | Encounter Summary ---
Author Organization [facility] Address [address] [facility] [place] [address] Care Team Providers Care Chain Tender Name Role Phone Unavailable Primary Care Provider [...] trimester, not applicable or unspecified (HCC) Procedures [place] FULL ROUT OBSTE CARE,VAGINAL Hitesh Benito MD RETIRED [facility] [address] [place] [address] Referral ID Status Reason Start Date Expiration Date Visits Re quested Visits Authorized [id number] Closed 10/29/2016 05/17/2017 16 16 Encounter Details Date Type Department Care Team (Latest Contact Info) Description 02/06/2017 7:47 AM CDT - 02/06/2017 11:59 PM CDT Hospital Encounter [facility] Maternal & Care [address] [place] [id number] Alex Osborn MD [address] [address] Discharge Disposition: Home or Self Care Social [...] Sign Reading Time Taken Comments Blood Pressure 124/63 02/06/2017 8:44 AM CDT Pulse 86 02/06/2017 8:44 AM CDT Temperature - - Respiratory Rate - - Oxygen Saturation - - Inhaled Oxygen Concentration - - Weight - - Height - - Body Mass Index - - documented in this encounter Medications at Time [...] Nausea/Vomiting 06/15/2020 documented as of this encounter Progress Notes * Nazanin Pizano, WAYLON-FILM SORTER - 02/06/2017 8:45 AM CDT AMA Pt. Presents for weekly testing r/t IUGR . Denies any LOF, VB, CTX''s or abdominal pain. Trace pedal edema. Pt verbalizes feeling movement. Nazanin Pizano RN 02/06/2017 8:45 AM documented in this encounter Plan of Treatment Not on file documented as of this encounter Procedures Procedure Name Priority Date/Time Associated Diagnosis Comments BIOPHYSICAL PROFILE W NST Routine 02/06/2017 7:46 AM CDT Small for gestational age (HCC) Supervision of high-risk of elderly multigravida (HCC) documented in this encounter Results * BIOPHYSICAL PROFILE W NST (02/06/2017 7:46 AM CDT) Anatomical Region Laterality Modality Other 02/06/2017 7:46 AM CDT Narrative 02/13/2017 10:29 AM CDT ? [facility] Maternal Medicine ? Maternal & Care Center ?PHONE: ??FAX: ? Pat. Name: ?DANIEL PHELAN. No: ?[id number] Study Date: ?? 02/06/2017 ??7:46am , Age: ? 1975, 41 Pregnancies: ?? 5, Para 2112 Height: ? 65 in Weight: ? 165 lb LMP: ?06/06/2016 GA by LMP: ?35w0d GA by 1st: ?35w0d GA Selected: ??35w0d (From First S) JORGE LUIS: ?03/13/2017 Referring MD: Guevara Sal MD Rn Recruitment: ??Kate Devlin RDMS CPT4: ? 15370, 46958, 47560, 79342 BMI: ?27.45 Hist/Ind: ? Small Head Circumference on Outside Scan ?History of 33wk Delivery ?Advanced Maternal Wap-Yoc-Lrii NIPT Heart Rate: 137 bpm Amniotic Fluid Index: 14.0cm (07.9-24.9) Q1: 4.3cm ??Q2: 2.5cm ??Q3: 3.1cm ??Q4: 4.2cm ?? Biophysical Profile: 06/11 Breathin ?? Tone: 2 ?? NST: 2 Movement: ??2 ?? AFV: ??2 DOPPLER Umbilical - Mid Cord S/D ??2.23(1.68 - 3.59) ? PI ?? 0.82 (0.60 - 1.18) ? Middle Cerebral Artery PSV ?? PI ?? 1.35 (1.47 - 2.64) * ?? Med PSV 51.1cm/s MoM 1.07(<1.5) CLINICAL SUMMARY Study Number: 2 A tay fetus is identified in vertex presentation. ??The placenta is posterior. ??The amniotic fluid volume is within normal limits. TESTING: The biophysical profile score is 10/10 DOPPLER STUDIES: The umbilical artery Doppler S/D ratio is 2.23, which is normal for gestational age The umbilical PI is 0.82, which is normal for gestational age The MCA PI is 1.35, which is decreased for gestational age ?? IMPRESSION: ?? Single, live IUP at 35w0d Normal AFV Dopplers suggest cephalized blood flow Reassuring BPP RECOMMEND: ?? Twice weekly testing with weekly Dopplers Follow up for growth in 2 weeks Thank you for allowing us the opportunity to care for your patient Andrea Holm MD <Electronic Signature> ??02/06/2017 11:32am Revised Montez Gregg MD [facility] ORDERABLES documented in this encounter Visit Diagnoses Diagnosis Small for gestational age (HCC)- Primary Wagkp-ueo-ciuzi without mention of malnutrition, unspecified (weight) Supervision of high-risk of elderly multigravida (HCC) Supervision of high-risk of elderly multigravida documented in this encounter
--- OUTSIDE RECORDS SUMMARY | 2024-08-18 21:35 | XMS_ITS | Encounter Summary ---
Author Organization [facility] Address [address] [facility] [facility] [place] [address] Care Team Providers Care Sales And Service Consultant Name Role Phone Unavailable Primary Care Provider Unavailabl e Encounter Details Date Type Department Care Team (Latest Contact Info) Description 01/30/2017 10:15 AM CDT - 01/30/2017 11:59 PM T Hospital Encounter [facility] Maternal & Care [address] [place], [place] [id number] Montez Gregg MD [address] [address] Discharge Disposition: Home or Self Care Social [...] Reasons: 06/15/2020 documented as of this encounter Consult Notes * Montez Gregg MD - 01/30/2017 11:48 AM CDT Patient: Anat Phelan Referral physician: Dr. Guevara Sal MD (OBGYN) Date: 01/30/2017 GA: 34w0d Estimated Date of Delivery: 03/13/17 Suspected Anomaly: small head Anomaly: IUGR with lagging head biometries - Maternal- Medicine Consultation Note - Anat Phelan is a 41 y.o. female whose fetus has been diagnosed with a small head noted upon an office ultrasound evaluation. She is currently 34w0d gestation. She is followed in care by Dr. Sal located in [place], [place]. The patient states having undergone an ultrasoundapproximately 1 week ago, revealing the diagnosis of small calvarial measurements. She was referredto the [facility] for ultrasound evaluation. - Anat's past obstetric history includes 2 term deliveries in 1999 and 2002, a delivery at 33 weeks in 2011 with and a spontaneous loss at 17 weeks in 2009. Anat states she has just recovered from a 3 week bout with pneumonia requiring hospitalization, home and readmission. She continues to smoke ~ 1/2 ppd of cigarettes. - She denies loss of fluid, vaginal bleeding or frequent contractions. She describes normal activity sensations. She states having normal bowel and bladder habits. She is accompanied by her sister. - Genetics and Teratology: No children born with special needs: no mental retardation, Down syndrome,autism spectrum, cystic fibrosis, sickle cell disease or chromosomal aberrancies/anomalies. No exposure to known teratogens, chemical or ionizing radiation. Denies any recent international travel in the last 2 year. - OB History Para Term AB Living 5 3 2 1 1 2 SAB TAB Ectopic Multiple Live Births 1 3 # Outcome Date GA Lbr Mil/2nd Weight Sex Delivery Anes PTL Lv 5 Current 4 Term LUCINDA 3 Term LUCINDA 2 ND 1 SAB Gynecologic History: Patient denies history of abnormal pap smears. Denies history of cervical procedures. Patient denies STDs or HSV. Past Medical History: Diagnosis Date ??? History of anemia ??? History of UTI No past surgical history on file. Social History Social History ??? Marital status: Spouse name: Ivan ??? Number of children: 2 living - 1 ??? 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 Occupational History ??? Not on file. Social History Main Topics ??? Smoking status: Current Every Day Smoker Packs/day: 0.50 ??? Smokeless tobacco: No ??? Alcohol use No ??? Drug use: No ??? Sexual activity: heterosexual Other Topics Concern ??? Not on file Social History Narrative ??? No narrative on file Daily PNV (most days) - No Known Allergies Current Outpatient Prescriptions on File Prior to Encounter Medication Sig Dispense Refill ??? Flunisolide HFA (AEROSPAN) 80 MCG/ACT Inhale 2 Puffs by mouth 2 times daily 1 Inhaler 1 ??? famotidine (PEPCID) 40 MG tablet Take 40 mg by mouth 2 times daily ??? iron polysaccharides (NIFEREX 150) 150 MG capsule Take 150 mg by mouth once daily ??? Vit-Fe Fumarate-FA ( VITAMIN) 28-0.8 MG tablet Take 1 Tab by mouth once daily Reasons: ??? albuterol HFA (PROAIR HFA) 108 (90 BASE) MCG/ACT inhaler Inhale 2 Puffs by mouth every 6 hours as needed 1 Inhaler 3 ??? budesonide-formoterol (SYMBICORT) 160-4.5 MCG/ACT inhaler Inhale 2 Puffs by mouth 2 times daily1 Inhaler 3 ??? cyclobenzaprine (FLEXERIL) 10 MG tablet Take 1 Tab by mouth 3 times daily as needed for Muscle Spasms 15 Tab 0 No current facility-administered medications on file prior to encounter. - Review of Systems: General ROS: Negative save for mild sputum production with cough. - Exam: 121/63, P 69R, afebrile, wt was not taken Skin - warm and dry, breath of tobacco. HEENT - EOMI, PERRLA, NI. Neck: no TM or bruits. L - CTA with rare right basilar rhonchi. Cor - RRR with 2/6 HSM; no LHTR. Abd - no HSM and nontender; FH is 32cm. Ext - no CCE. Neuro - CN 2-12 Grossly WNL, DTR 2+/4 bilaterally. Alert and oriented times three. US: 01/30/2017 A single fetus is identified cephalic presentation. The measurements today are consistent with lessthan expected size for the JORGE LUIS provided. The JORGE LUIS selected is based on her LMP and a prior ultrasound examination. The amniotic fluid volume is within normal limits. The placenta is posterior. No major malformations are seen. The patient was advised that ultrasound does not allow detection of all structural or chromosomal abnormalities. TESTING: The Biophysical profile score is 10. IMPRESSION: Single, live vertex IUP at 34w0d Normal amniotic fluid volume. Less than expected growth - predicated upon provided dating criteria Placental location: Posterior No major malformations are identified on an incomplete anatomical survey UA and MCA Dopplers appear normal - COUNSELING: - IUGR was described as a symptom of slowed growth. This may represent a normal variation (parents who are very short adults), growth restriction from infections (typically viruses of the TORCH types), aneuploidy, substance use (inclusive of illegal drugs, alcohol and tobacco) or placental issues. Notwithstanding, 25% or more cases are idiopathic. These cases require increased and intensive surveillance and, at times, indicated premature . Each case must be evaluated within the clinical context of presentation and laboratory review. Surveillance is done by growth ultrasounds every 2 - 3 weeks and usually testing in the form of BPP, NST, TOSHIA and occasionally Doppler interrogations of the umbilical artery and other vessels if the UA readings are abnormal. - Impressions: 1. IUP at 34w0d gestation, tay 2. IUGR with small calvarial measurements 3. History of PTL/D at 33 weeks with 4. Smoker: 1/2 ppd or more 5. Recent pneumonia Recommendations: 1. Stop smoking: or, at least, minimize smoking 2. surveillance as scheduled: repeat ultrasound in 2 weeks for growth evaluation - Weekly BPP, NST, TOSHIA - Twice daily movement counts 3. care continues with her primary golf ball inspector, Dr. Guevara Sal Time of consultation: 45 minutes. Montez Gregg MD Maternal Medicine documented in this encounter Plan of Treatment Not on file documented as of this encounter Visit Diagnoses Diagnosis IUGR (intrauterine growth restriction) affecting care of mother, third trimester, not applicable or unspecified fetus (HCC) History of delivery, currently in third trimester (HCC) Tobacco smoking affecting in third trimester (HCC) documented in this encounter
--- OUTSIDE RECORDS SUMMARY | 2024-08-18 21:35 | XMS_ITS | Encounter Summary ---
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 documented in this encounter Plan of Treatment Not on file documented as of this encounter Visit Diagnoses Not on filedocumented in this encounter Care Teams Medical Office Rep Relationship Specialty Start Date End Date Kendrick Chacon MD PCP - General 04/27/20 04/30/24 Kendrick Chacon MD Emergency Medicine 04/27/20 Edy Yadav MD [address] [place] [address] Consulting Physician Pain Management 04/28/21 documented as of this encounter
--- OUTSIDE RECORDS SUMMARY | 2024-08-18 21:35 | XMS_ITS | Encounter Summary ---
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 Not on file Not on file documented as of this encounter Plan of Treatment Not on file documented as of this encounter Procedures Procedure Name Priority Date/Time Associated Diagnosis Comments XR WRIST BILATERAL 3 OR MORE VIEWS Schedule Routine, Read Routine (OP Routine) 07/20/2024 1:14 PM LIVING MANAGER Effusion of joint, unspecified location Arthralgia, unspecified joint documented in this encounter Results * XR Wrist Bilateral 3 or More Views (07/20/2024 1:14 PM LIVING MANAGER) Anatomical Region Laterality Modality Upper Extremities, Wrist Digital Radiography 07/21/2024 7:09 PM LIVING MANAGER Narrative 07/21/2024 7:48 PM LIVING MANAGER EXAM DESCRIPTION: XR WRIST BILATERAL 3 OR [...] D: ??07/21/2024 7:48 PM T: Report ID: [id number] Reading Location: ??[id number] Procedure Note Eh Chu MD - 07/21/2024 [...] by Eh Chu M.D. T: Report ID: [id number] Reading Location: [id number] Jessie Sherwood MD IMG XR PROCEDURES Final Re sult documented in this encounter Visit Diagnoses Diagnosis Effusion of joint, unspecified location Arthralgia, unspecified joint documented in this encounter Care Teams Senior Oracle Dba Relationship Specialty Start Date End Date Keven Gonzalez DO [address] [place] [address] PCP - General Family Medicine 05/29/24 Kendrick Chacon MD Emergency Medicine 04/27/20 Edy Yadav MD [address] [facility] [place] [address] Consulting Physician Pain Management 04/28/21 documented as of this encounter
--- OUTSIDE RECORDS SUMMARY | 2024-08-18 21:35 | XMS_ITS | Encounter Summary ---
Author Organization [facility] Address [address] [place] [address] Care Team Providers Care Cnc Mill And Lathe Operator Name Role Phone Unavailable Primary Care Provider Unavailabl e Reason for Visit * Reason Comments FAD NST Encounter Details Date Type Department Care Team (Latest Contact Info) Description 02/19/2017 8:45 AM CDT - 02/19/2017 11:59 PM CDT Hospital Encounter [facility] Maternal & Care [address] [place] [address] Janeth Gonzalez MD [address] [id number] Discharge Disposition: Home or Self Care Social [...] Sign Reading Time Taken Comments Blood Pressure 131/73 02/19/2017 9:21 AM CDT Pulse 79 02/19/2017 9:21 AM CDT Temperature - - Respiratory Rate [...] of this encounter Progress Notes * Nazanin Pizano APRN-CNP - 02/19/2017 9:22 AM CDT Pt. Presents for testing r/t small HC. Denies any LOF, VB, CTX''s or abdominal pain. Pt verbalizes feeling movement. Nazanin Pizano RN 02/19/2017 9:23 AM documented in this encounter Procedure Notes * Janeth Gonzalez MD - 02/19/2017 1:03 PM CDTProcedure(s): NONSTRESS TEST Non-Stress Test (NST) Anat Phelan [id number] ?? Indications: suspected FGR (AC 4th %ile, EFW 5th %ile on 01/30) with brain sparing , AMA (age 41) ?? BP 131/73 Pulse 79 ?? Interpretation: FHR baseline:125 beats/minute, moderate variability, reactive, no decels Contractions: none ? Recommendations: Close maternal movement monitoring while awaiting delivery around 37 weeks (for brain sparing in the setting of suspected FGR). If the decision is made not to proceed with delivery, repeat Dopplers and AFV assessment in 1-2 days. ? Janeth Gonzalez MD MPH documented in this encounter Plan of Treatment Scheduled Orders Name Type Priority Associated Diagnoses Orde r Schedule NON-STRESS TEST MATRNL MED Routine Supervision of high-risk of elderly multigravida (HCC) Small for gestational age (HCC) 1 Occurrences starting 02/19/2017 until 02/19/2018 NON-STRESS TEST MATRNL MED Routine Supervision of high-risk of elderly multigravida (HCC) Small for gestational age (HCC) 1 Occurrences starting 02/19/2017 until 02/19/2017 documented as of this encounter Visit Diagnoses Diagnosis Supervision of high-risk of elderly multigravida (HCC)- Primary Supervision of high-risk of elderly multigravida Small for gestational age (HCC) Xfmau-ulq-ahetj without mention of malnutrition, unspecified (weight) Maternal care for other (suspected) abnormality and damage, not applicable or unspecified (HCC) AMA (advanced maternal age) multigravida 35+, unspecified trimester (HCC) documented in this encounter
--- OUTSIDE RECORDS SUMMARY | 2024-08-18 21:35 | XMS_ITS | Encounter Summary ---
Author Organization [facility] Address [address] [facility] [place] [address] Care Team Providers Care Supervisor Stripping Name Role Phone Kendrick Chacon MD Primary Care Provider [phone] Reason for Visit * Reason Onset Date Comments MEDICATION REFILL 08/16/2021 Encounter Details Date Type Department Care Team (Late st Contact Info) Description 08/16/2021 Refill [facility] Endocrinology, Diabetes and Metabolism [address] [place] [address], [place] [phone] Froylan Valle MD [address] [place] [address] [place] [address] MEDICATION REFILL Social History Tobacco Use Types Packs/Day Years [...] on filedocumented in this encounter Care Teams Supervisor Stripping Relationship Specialty Start Date End Date Kendrick Chacon MD [address] [facility] [address] [place] [address] PCP - General 04/03/21 documented as of this encounter
--- OUTSIDE RECORDS SUMMARY | 2024-08-18 21:35 | XMS_ITS | Encounter Summary ---
Author Organization [facility] Address [address] [facility] [place] [address] Care Team Providers Care Curriculum And Instruction Specialist Name Role Phone Kendrick Chacon MD Primary Care Provider [phone] Reason for Visit * Reason Comments Adrenal Insufficiency Encounter Details Date Type Department Care Team (Late st Contact Info) Description 07/20/2021 4:00 PM WEIGHER AND MIXER Video Visit [facility] Endocrinology, Diabetes and Metabolism [address] [place] [address], [place] [phone] Froylan Valle MD [address] [place] [address] of [place], [place] [id number] Adrenal insufficiency (HCC) Social History Tobacco Use Types Packs/Day Years Used Date Smoking Tobacco: Every Day Cigarettes Smokeless Tobacco: Never Alcohol Use Standard Drinks/Week Comments No 0 (1 standard drink = 0.6 oz pur e alcohol) Sex and Gender Information Value Date Recorded Sex Assigned at Not on file Gender Identity Not on file Sexual Orientation Not on file documented as of this encounter Patient Instructions * Patient Instructions* Antoinette Paredes LPN - 07/20/2021 3:48 PM WEIGHER AND MIXER If you have an Insulin Pump, Meter or a Continuous Glucose Monitor, please BRING IT TO EVERY VISIT and present it to the Endo rooming staff when you arrive in clinic. APPOINTMENTS: option 1 or you can send a [employer] message. Normal business hours are from 8:00 am to 4:30 pm Saturday through Saturday. Fax# is [phone]. REFILL REQUESTS: contact your pharmacy who will reach out to us. If you have changes to your prescription, you will need to contact us directly at [phone] and select option 2 or send your doctora [employer] message. We request that all prescription refills be requested during regular office phone hours. If your prescription requires a prior authorization, it may take several days for us to get approval from [employer] company before we can refill your prescription. Please do not wait until you are completely out before contacting us. MEDICAL EMERGENCY: Please call 911 or go to the nearest Emergency Room. After hours urgent calls that cannot wait until phone lines are open on the next business day are given to the [employer] physician auctioneer automobile. Please call [phone] and identify yourself as a patient in our practice needing to speak to Negative Cutter. The folding machine operator will contact the physician auctioneer automobile. You can generally expect a return call within 30 minutes. On weekends, physicians are seeing hospitalized patients and there may be a longer wait. Test and laboratory results: Our practice typically reports lab and test results through letters orMyChart. Please allow 10 days from when your tests are completed to receive the results in the mail. Labs performed outside of [facility] facility, [facility] or [facility] may delay the results getting to us. Please contact the lab and request that they are faxed to us at [phone]. IF GOING TO [facility] or [facility]- TAKE LAB ORDER WITH YOU or they may turn you away [facility]'s missed appointment policy is: Patients with 3 consecutively missed appointments OR 3 missed appointments in a 12 month period will no longer be seen by Endocrinology. They will be asked to seek consultation outside of [facility]. A missed appointment is defined as: ??? Arriving to a scheduled appointment too late to be seen (Patients who arrive to clinic later than their scheduled appointment time may not be seen) ??? Not showing up or calling 24-48 hours prior to an appointment ??? An appointment cancelled less than 24 hours in advance ADDRESS: [address] [place] [id number] Website: [email or web address] for additional information about [employer] and an interactive health encyclopedia. HER AND MIXER documented in this encounter Progress Notes * Froylan Valle MD - 07/20/2021 4:26 PM CST Telephone Note Today's visit was conducted virtually due to COVID-19 countermeasures. The patient has given verbalconsent to have today's visit conducted by this same means with treatment provided remotely. The patient verbally consents to the billing and collection practices of the provider's medical group. Assessment & Plan Anat is a 45 year old female who has completed a telephone encounter regarding: Subjective Chief Complaint Patient presents with ??? Adrenal Insufficiency Encounter Diagnosis Name Primary? Adrenal insufficiency Yes Missed test On inhaled steiod and prednisone Is not Getting steroid injections since December2020 Will reschedule WEIGHER AND MIXER Rtc 3months in person Reviewed meds Renewed meds A comprehensive 10 system ROS was reviewed. Pertinent positives and negatives are included in HPI or PMH. The remainder of the 10 system ROS was negative. Objective No physical exam was able to be performed by phone. Patient location: Home This encounter was performed using: audio Reason for not using video for visit: patient does not have the technology Total time spent on visit on date of encounter is: 20 minutes with 20 minutes spent in medical discussion Froylan Valle MD HER AND MIXER documented in this encounter Plan of Treatment Not on file documented as of this encounter Visit Diagnoses Diagnosis Adrenal insufficiency (HCC)- Primary Glucocorticoid deficiency documented in this encounter Care Teams Curriculum And Instruction Specialist Relationship Specialty Start Date End Date Kendrick Chacon MD [address] [facility] [address] [place] [address] PCP - General 04/03/21 documented as of this encounter
--- OUTSIDE RECORDS SUMMARY | 2024-08-18 21:35 | XMS_ITS | Encounter Summary ---
Author Organization [facility] Address [address] [place] [address] Care Team Providers Care Supervisor Ticket Sales Name Role Phone Kendrick Chacon MD Primary Care Provider [phone] Reason for Visit * Reason Comments Adrenal Insufficiency Encounter Details Date Type Department Care Team (Latest Contact Info) Description 04/18/2021 3:40 PM CDT Office Visit [facility] Endocrinology, Diabetes and Metabolism [address] [place] [address], [place] [id number] Froylan Valle MD [address] [place] [address] [place] [address] Adrenal insufficiency (HCC) (Primary Dx) Social History Tobacco Use Types [...] 04/18/2021 3:49 PM CD T Respiratory Rate - - Oxygen Saturation 96% 04/18/2021 3:49 PM CDT Inhaled Oxygen Concentration - - Weight 86.4 kg (190 lb 6.4 oz) 04/18/2021 3:49 P M CDT Height 165.1 cm (5' 5 ) 04/18/2021 3:49 PM CDT Body Mass Index 31.68 04/18/2021 3:49 PM CDT documented in this encounter Patient Instructions * Patient Instructions* Joanna Kolb - 04/18/2021 3:44 PM CDT If you have an Insulin Pump, Meter or a Continuous Glucose Monitor, please BRING IT TO EVERY VISIT and present it to the Endo rooming staff when you arrive in clinic. APPOINTMENTS: option 1 or you can send a [employer] message. Normal business hours are from 8:00 am to 4:30 pm Saturday through Saturday. Fax# is [phone]. REFILL REQUESTS: contact your pharmacy who will reach out to us. If you have changes to your prescription, you will need to contact us directly at [phone] and select option 2 or send your [employer] message. We request that all prescription refills be requested during regular office phone hours. If your prescription requires a prior authorization, it may take several days for us to get approval from [employer] company before we can refill your prescription. Please do not wait until you are completely out before contacting us. MEDICAL EMERGENCY: Please call 911 or go to the nearest Emergency Room. After hours urgent calls that cannot wait until phone lines are open on the next business day are given to the Television Specialist physician electric distribution engineer. Please call [phone] and identify yourself as a patient in our practice needing to speak to Television Specialist. The linotype operator will contact the physician electric distribution engineer. You can generally expect a return call within 30 minutes. On weekends, physicians are seeing hospitalized patients and there may be a longer wait. Test and laboratory results: Our practice typically reports lab and test results through letters orMyChart. Please allow 10 days from when your tests are completed to receive the results in the mail. Labs performed outside of [facility] facility, [facility] or [facility] may delay the results getting to us. Please contact the lab and request that they are faxed to us at [phone]. IF GOING TO [facility] or [facility]- TAKE LAB ORDER WITH YOU or they may turn you away [facility]'s missed appointment policy is: Patients with 3 consecutively missed appointments OR 3 missed appointments in a 12 month period will no longer be seen by Endocrinology. They will be asked to seek consultation outside of [facility]. A missed appointment is defined as: ??? Arriving to a scheduled appointment too late to be seen (Patients who arrive to clinic later than their scheduled appointment time may not be seen) ??? Not showing up or calling 24-48 hours prior to an appointment ??? An appointment cancelled less than 24 hours in advance ADDRESS: [address] [place] [address] Website: [email or web address] for additional information about [facility] and an interactive health encyclopedia. documented in this encounter Progress Notes * Froylan Valle MD - 04/18/2021 4:55 PM CDT Seen and examined,reviewed and confirmed with house staff evaluation and note. See progress note. Anat Phelan is a 45 year old female with Encounter Diagnosis Name Primary? Adrenal insufficiency Yes Multiple steroid injections Then pcp told her she looked cushingoid had low acth and low cortisol Last injection May continues on inhaled steroids of 113*4 fluticasone/day BP 120/78 (BP SITE: RIGHT ARM, BP POSITION: SITTING, BP CUFF SIZE: 11) Pulse 82 Temp 98.2 ??F (36.8??C) (Oral) Ht 5' 5 (1.651 m) Wt 190 lb 6.4 oz (86.4 kg) SpO2 96% BMI 31.68 kg/m2 Physical Examination: General appearance - alert, well appearing, and in no distress Mental status - alert, oriented to person, place, and time Neck - supple, no significant adenopathy Lymphatics - no palpable lymphadenopathy, no hepatosplenomegaly Chest - clear to auscultation, no wheezes, rales or rhonchi, symmetric air entry Heart - normal rate, regular rhythm, normal S1, S2, no murmurs, rubs, clicks or gallops Abdomen - soft, nontender, nondistended, no masses or organomegaly Extremities - peripheral pulses normal, no pedal edema, no clubbing or cyanosis Dx iatrogenic cushings and adrenal insufficiency Plan start prednisone 5 mg daily until acth stim test cortrosyn stim test rtc 3months tele * Ana Paula Brandt MD - 04/18/2021 3:12 PM CDT [facility] Endocrinology New Patient Note Reason for Referral: low cortisol level History of Present Illness: Anat Phelan is a 45 year old female with PMH degenerative disc disease, lumbar spondylosis, anterolisthesis L5-S1, BL carpal tunnel syndrome, and COPD referred to Endocrinology clinic for low ACTH and cortisol level by PCP. Pt w chronic lower back pain and follows w Thelma Rosa NP at [facility] orthopedics. Pt presented to orthopedic clinic 01/16 for worsening left sided low back pain and received 120mg methylprednisolone injection (40mg x 3 shots); she has been getting these frequently and her injection previous to thiswas in September 2020. She was sent home with baclofen and ibuprophen and given back exercises to help with the pain. A few days later on 01/19, pt presented to Urgent Care for back pain and received amedrol dose pack along with tizanidine 4mg and Vicodin. Pt reported developing facial, neck, and leg swelling along with oral candidiasis a couple day after this appointment. Pt went back to her PCP who told her that she appeared as though she had corina syndrome and ordered lab work on 01/23 that showed cortisol 0.98 and free T4 0.75. She was started on lisinopril for elevated BP at that appointment. A month later, pt felt better and stopped her BP medicine due to feeling light headed. Labs on03/24 showed ACTH <5. Pt says she still feels tired and sleeps all day. Despite not having an appetite, she has been gaining weight despite the decrease in swelling. Pt reports he underarm hair has thinned and she is losing more hair in the shower. She has also been urinating more frequently larger amounts. She endorses increased thirst constantly drinking water. Her last period was 3 months ago with some spotting andshe is not sexually active. Her mother never went through menopause because she has a total hysterectomy. Pt reports worsening of her vision as well in the last couple months, she has difficulty reading small print. Pt is taking 113/14 fluticasone/salmedrol 2 puffs BID for the last week and she is not using steroid hemorrhoid cream. Past Medical History: Reviewed and updated in [employer] History tab Past Surgical History: Reviewed and updated in [employer] History tab Family History: Reviewed and updated in [employer] History tab Social History: Reviewed and updated in [employer] History tab Medications: Reviewed and updated in [employer] Medications tab Allergies: Reviewed and updated in [employer] Allergies tab Review of Systems: Positives in bold, otherwise negative Constitutional: fevers, chills, sweats, fatigue, weight loss/gain, chronic pain HEENT: head trauma, vision/hearing/voice changes, eye/ear/throat pain Respiratory: cough, sputum, hemoptysis, wheezing, shortness of breath Cardiovascular: chest pain/discomfort, dyspnea on exertion, orthopnea, PND, palpitations Gastrointestinal: nausea/vomiting, diarrhea, constipation, hematochezia, melena, abdominal pain, incontinence Genitourinary: dysuria, urgency, frequency, incontinence, hematuria Integument: rash, ulcers, itching Hematologic/lymphatic: easy bruising, bleeding Musculoskeletal: myalgias, arthralgias Neurological: headaches, dizziness, lightheadedness, weakness, numbness, tingling Behavioral/Psych: anxiety, depression, memory problems Endocrine: polyuria, polydipsia, polyphagia, heat/cold intolerance, polydipsia, hair loss amenorrhea Physical Exam: BP 120/78 (BP SITE: RIGHT ARM, BP POSITION: SITTING, BP CUFF SIZE: 11) Pulse 82 Temp 98.2 ??F (36.8??C) (Oral) Ht 5' 5 (1.651 m) Wt 190 lb 6.4 oz (86.4 kg) SpO2 96% BMI 31.68 kg/m2 GENERAL: not in acute distress HEENT: normocephalic, atraumatic NECK: supple, nontender, no nodules palpated CARDIOVASCULAR: RRR, S1 and S2 appreciated, no rubs, gallops, or murmurs LUNGS: clear breath sounds bilaterally, no crackles, wheezes, or rhonchi ABDOMEN: BS+ 4 quad, nontender, nondistended : no suprapubic tenderness or flank tenderness EXTREMITIES: pulses 2+, no lower extremity edema SKIN: dry, warm, no rashes, lesions, or bruising NEUROLOGIC: CN II-XII grossly intact, no obvious deficits PSYCHIATRIC: good mood Labs: Personally reviewed. Imaging/Other diagnostic testing: Personally reviewed. Assessment & Plan: Anat Phelan is a 45 year old female with PMH degenerative disc disease, lumbar spondylosis, anterolisthesis L5-S1, BL carpal tunnel syndrome, and COPD referred to Endocrinology clinic for low ACTH and cortisol level by PCP. #Concern for iatrogenic adrenal insufficiency - Pt had had loss of appetite, weight gain, hair loss, fatigue, somnolence, amenorrhea, polydipsia,and polyuria in the last month since having multiple steroid injections and taking oral steroids. - last injection or oral steroid dose was 01/19/21. After this dose pt had generalized edema, palpitations, increased energy, and developed oral candidiasis. - Pt w familial hx of autoimmune diseases but pt VASQUEZ and RA negative per PCP - 03/24/21 ACTH <5 and 01/23 cortisol 0.98, per PCP records PLAN: - start pt on prednisone 5mg daily maintenance dose for concern for adrenal insufficiency - ordered repeat ACTH and cortisol stim test -- pt is to skip morning dose of prednisone the day of the stim test -- Pt should perform cortisol stim test PRIOR to her next steroid injection Pt was seen and discussed with the attending, Dr. Valle. Ana Paula Brandt MD 04/18/2021 5:02 PM Associated attestation - Froylan Valle MD - 04/19/2021 2:56 PM CDT Seen and examined,reviewed and confirmed with house staff evaluation and note. See progress note. documented in this encounter Plan of Treatment Scheduled Orders Name Type Priority Associated Diagnoses Orde r Schedule CORTROSYN STIMLATION 0-30-60 Lab Routine Adrenal insufficiency (HCC) Ordered: 04/18/2021 documented as of this encounter Visit Diagnoses Diagnosis Adrenal insufficiency (HCC)- Primary Glucocorticoid deficiency documented in this encounter Care Teams Supervisor Ticket Sales Relationship Specialty Start Date End Date Kendrick Chacon MD [facility] [address] [address] PCP - General 04/03/21 documented as of this encounter
--- OUTSIDE RECORDS SUMMARY | 2024-08-18 21:35 | XMS_ITS | Encounter Summary ---
Author Organization [facility] Address [address] [place] [address] Phone Care Team Providers Care Data Steward Name Role Phone Kendrick Chacon MD Unavailable Edy Yadav MD Unavailable Keven Gonzalez DO Primary Care Provider [phone] Encounter Details Date Type Department Care Team (Late st Contact Info) Description 07/22/2024 Telephone [facility] [address] [facility] 5th [place] [address] [place] [id number] Jessie Sherwood MD [address] [facility] [address] [place], [place] [id number] Social History Tobacco Use Types Packs/Day Years [...] 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 Not on file Not on file documented as of this encounter Ordered Prescriptions Prescription Sig Dispense Quantity Refills Last Filled Start Date End Date hydroxychloroquine (PLAQUENIL) 200 mg tabletIndications:A rthralgia, unspecified joint Take 1 tablet (200 mg total) by mouth 2 (two) times a day 60 tablet 5 07/22/2024 documented in this encounter Miscellaneous Notes * Telephone Encounter - Heavenly Rodriguez CMA - 07/22/2024 3:37 PM HEALTH ADMINISTRATION TEACHER Rx sent to pharm TH ADMINISTRATION TEACHER * Telephone Encounter - Heavenly Rodriguez CMA - 07/22/2024 9:19 AM HEALTH ADMINISTRATION TEACHER Incoming call from pt stating that she is able to see her xr results in her portal. Pt would like to know if there is an actual diagnosis for her. Also what are the next steps. Please advise TH ADMINISTRATION TEACHER documented in this encounter Plan of Treatment Not on file documented as of this encounter Visit Diagnoses Diagnosis Arthralgia, unspecified joint- Primary documented in this encounter Care Teams Data Steward Relationship Specialty Start Date End Date Keven Gonzalez DO [address] [place] [address] PCP - General Family Medicine 05/29/24 Kendrick Chacon MD Emergency Medicine 04/27/20 Edy Yadav MD [address] [place] [address] Consulting Physician Pain Management 04/28/21 documented as of this encounter
--- OUTSIDE RECORDS SUMMARY | 2024-08-18 21:35 | XMS_ITS | Encounter Summary ---
Author Organization formerly [facility] Address [address] [place] [address] Care Team Providers Care Emt P Name Role Phone Kendrick Chacon MD Primary Care Provider Kendrick Chacon MD Unavailable Maribell Tomlinson MD Unavailable Reason for Referral * Consultation (Routine) - Closed Specialty Diagnoses / Procedures Referred By Contac t Referred To Contact Pain Management Diagnoses DDD (degenerative disc disease), lumbar Anterolisthesis Lumbar spondylosis Thelma Rosa NP [facility] [address] [place] [address] Phone: tel: fax: Maribell Tomlinson MD [facility] [address] [place] [address] [place] [address] Phone: tel: fax: Referral ID Status Reason Start Date Expiration Date V isits Requested Visits Authorized [id number] Closed Specialty Services Required 03/17/2021 04/16/2022 1 1 Question Answer Please select the performing region: External Order [[id number]] To provider: MARIBELL TOMLINSON [[id number]] # of visits: 1 Comments Evaluate and treat DDD lumbar Facet arthropathy Reason for Visit * Reason Comments Back Pain * Consultation (Routine) - Closed Specialty Diagnoses / Procedures Referred By Contac t Referred To Contact Pain Management Diagnoses DDD (degenerative disc disease), lumbar Anterolisthesis Lumbar spondylosis Thelma Rosa, PLAN CONSULTANT [address] [facility] [address] [place] [address] Phone: tel: fax: Maribell Tomlinson MD [address] [place] [address] [address] [facility] [address] Phone: tel: fax: Referral ID Status Reason Start Date Expiration Date V isits Requested Visits Authorized [id number] Closed Specialty Services Required 03/17/2021 04/16/2022 1 1 Encounter Details Date Type Department Care Team (Latest Contact Info) Description 04/28/2021 2:06 PM CDT - 04/28/2021 11:59 PM CDT Hospital Encounter [facility] [address] [place] [address] [address] [place] [address] Maribell Tomlinson MD [address] [place] [address] [address] [facility] [place] [address] Bulge of lumbar disc without myelopathy (Primary Dx); DDD (degenerative disc disease), lumbar; Anterolisthesis; Lumbar spondylosis; Facet arthropathy, lumbar; Pain of lumbar facet joint Discharge Disposition: Discharge to home or self [...] 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 Not on file Not on file documented as of this encounter Last Filed Vital Signs Vital Sign Reading Time Taken Comments Blood Pressure 137/85 04/28/2021 2:19 PM CDT Pulse 65 04/28/2021 2:19 PM CDT Temperature 37.1 ??C (98.7 ??F) 04/28/2021 2:19 PM CD T Respiratory Rate 18 04/28/2021 2:19 PM CDT Oxygen Saturation 98% 04/28/2021 2:19 PM CDT Inhaled Oxygen Concentration - - Weight - - Height 165.1 cm (5' 5 ) 04/28/2021 2:19 PM CDT Body Mass Index - - documented in this encounter Discharge Instructions * Discharge Instructions* Linette Duenas RN - 04/28/2021 3:32 PM CDT Ok to eat Ok to take home medications Must have a crew car driver Shower with antibacterial soap Wear comfort clothes documented in this encounter Medications at Time [...] nightly as needed for anxiety or seizures fluticasone propion-salmeteroL (AIRDUO RESPICLICK) 55-14 mcg/actuation inhaler [...] or self care documented in this encounter H&P Notes * Maribell Tomlinson MD - 04/28/2021 2:30 PM CDT New Patient Consultation Chief Complaint: Back Pain HPI: Anat Phelan is a 45 y.o. female who was referred for consultation by NP. Rosa regarding evaluation and treatment of back pain. The patient's PCP is Kendrick Chacon MD. The patient has had back pain for 5 years. The patient's back pain radiates to left buttock area. The patient back pain has been worsening for a year. The pain is in the lower back in the center and on both side acrossthe waistline. Her back pain does not radiate to her legs. The patient 's pain level is 7 /10 now, the pain level is 5/10 on average, the pain level is 10/10 at the worst, the pain level is 4/10 at the least. The pain does interfere with sleep. The pain is continuous. The pain is associated with st anding sitting lying down walking lifting twisting bending using stairs changing position reaching and running. In addition to back pain patient also complains of neck pain. She has a chronic pain since 2019. Lower back pain bother her more than neck pain. The patient does not have bowel and bladder incontinence associated with the back pain. Patient has no ataxia. Patient has tried therapy such as physical therapy, medications such as NSAIDs Tylenol Flexeril, which has not controlled the pain. The patient has tried above mentioned conservative treatment for at least 8 weeks. Past Medical History: Diagnosis Date Anterolisthesis L4 on L5, grade 1 Asthma DDD (degenerative disc disease), cervical DDD (degenerative disc disease), lumbar Depression Gastric reflux GERD (gastroesophageal reflux disease) Lumbar facet arthropathy 03/15/2021 L3-L4, L4-L5, L5-S1 Lumbar spondylosis Osteoarthritis of left AC (acromioclavicular) joint Past Surgical History Current Outpatient Medications Medication Sig Dispense Refill albuterol HFA (PROVENTIL HFA,VENTOLIN HFA,PROAIR HFA) 90 mcg/actuation inhaler Inhale 2 puffs every6 (six) hours as needed citalopram (CeleXA) 20 mg tablet Take 40 mg by mouth daily clonazePAM (KlonoPIN) 0.5 mg disintegrating tablet Take 0.5 mg by mouth nightly as needed for anxiety or seizures fluticasone propion-salmeteroL (AIRDUO RESPICLICK) 55-14 mcg/actuation inhaler meloxicam (MOBIC) 7.5 mg tablet Take 1 tablet PO BID PRN 60 tablet 2 omeprazole (PriLOSEC) 20 mg capsule Take 20 mg by mouth daily predniSONE (DELTASONE) 5 mg tablet Take 5 mg by mouth daily tolterodine LA (DETROL LA) 4 mg 24 hr capsule Take by mouth daily terbinafine (LamISIL) 1 % cream RENNY EXT AA BID No current facility-administered medications for this encounter. Medications (Not in a hospital admission) Allergies No Known Allergies Social History Tobacco Use Smoking status: Current Every Day Smoker Smokeless tobacco: Never Used Substance Use Topics Alcohol use: Never Family History Problem Relation Age of Onset Arthritis Mother Hypertension Mother Diabetes Father Hypertension Father Review of Systems: Constitutional: No fever, no chills, no unintended weight loss Positive For: Neurological: No headaches, no dizziness, no vision changes Positive For: Cardiovascular: No chest pain, no palpitations Positive For: Respiratory: No shortness of breath, no coughing Positive For: Psychiatric: No mood changes, no depression Positive For: Lymphatic: No swollen lymph nodes Positive For: Hematology: No easy bruising Positive For: Integument: No itching, no non-healing sores Positive For: Oral: No mouth sores Positive For: Musculoskeletal: Positive For: Back pain Gastrointestinal: No nausea, no vomiting, no diarrhea, no abdominal pain, no constipation Positive For: Genitourinary: No genital sores Positive For: Physical exam: Vitals: Patient Vitals for the past 24 hrs: BP Temp Temp src Pulse Resp SpO2 Height 04/28/21 1419 137/85 98.7 ??F (37.1 ??C) Temporal 65 18 98 % 165.1 cm (5' 5 ) General Appearance: Alert, cooperative, no distress, appears stated age, well developed, well nourished Head: Normocephalic, without obvious abnormality, atraumatic Eyes: PERRL, conjunctiva/corneas clear, EOM's intact, fundi benign, both eyes, anicteric Ears: Normal TM's and external ear canals, both ears Nose: Nares normal, septum midline, mucosa normal, no drainage or sinus tenderness Throat: Lips, mucosa, and tongue normal; teeth and gums normal, mucous membranes moist Neck: Supple, symmetrical, trachea midline, no adenopathy; thyroid: No enlargement/tenderness/nodules; no carotid bruit or JVD Spine: Cervical spine: range of motion is decreased full for extension and lateral bending lateral rotation. Cervical spine is tender at C4-5 C5-C6 and C6- 7 bilaterally. Cervical spine extension and lateral bending or lateral rotation makes the neck pain worse. Thoracic spine: There is no tenderness in thoracic spine. Lumbar spine: The lumbar spine range of motion is decreased, the lumbar spine is tender at L3-4, L4-5 and L5-S1. Lumbar spine facet joint loading test is positive bilaterally. Straight leg raising test is equivocal bilateral. There is no tenderness at sacroiliac joint on both sides . Mason's test is negative bilaterally. Lungs: Clear to auscultation bilaterally, respirations unlabored Chest wall: No tenderness or deformity Cardiovascular: Regular rate and rhythm, S1 and S2 normal, no murmur, rub or gallop, no edema, pulses 2+ and symmetric to all extremeties Abdomen: Soft, non-tender, bowel sounds active all four quadrants, no masses, no organomegaly, non-distended Genitalia: Deferred Rectal: Deferred Extremities: Extremities normal, atraumatic, no cyanosis or edema, no clubbing. Range of motion of all major joints grossly with the normal limits normal limits. Skin: Skin color, texture, turgor normal, no rashes, lesions or bruising Lymph nodes: Deferred Neurologic: Alert & oriented x 3, CNII-XII intact. Normal strength, sensation and reflexes throughout. Cerebellar functional grossly normal. Gait steady, Psychosocial: Normal affect and mood. Review of Imaging Studies: I reviewed patient lumbar spine MRI dated on March 14, 2021 which shows the following results: L1-2: Unremarkable. L2-3: Unremarkable. L3-4: Annular bulge and facet hypertrophy mildly narrows both foramina. L4-5: Facet arthropathy and ligamentous thickening mildly narrows the right foramen. L5-S1: Annular bulge and facet arthropathy without spinal canal or lateral recess stenosis. Ckyn-xb-[id number] bilateral foraminal narrowing. SACRUM: Visualized upper sacrum intact. Impressions: 1. Lumbar degenerative disc disease with disc bulging or disc protrusion at L3-4 and L5-S1 2. Lumbar facet joint degenerative joint disease at L3-4 L4-5 L5-S1 3. Lumbar facet joint pain syndrome. Assessment/Plan: The patient's back pain on both side is due to multilevel lumbar facet joint degenerative joint disease and lumbar facet joint pain syndrome. The patient has tried variety of conservative treatments without success in control of the pain. Patient may benefit from lumbar facet joint medial branch nerve radiofrequency ablation, to determine if she is a candidate for lumbar facet joint nerve radiofrequency ablation, patient will need to have 2 times lumbar facet joint medial branch nerve diagnostic nerve block . Therefore, it is medically necessary and reasonable to offer patient lumbar facet joint medial branch nerve diagnostic block procedure. The procedure and its associated risks, benefits, and treatment options were fully discussed with the patient, the patient's questions were all answered. The patient wished to proceed with the procedure as scheduled. documented in this encounter Plan of Treatment Scheduled Referrals Name Type Priority Associated Diagnoses Order Schedule Ambulatory referral to Pain Management Outpatient Referral Routine DDD (degenerative disc disease), lumbar Anterolisthesis Lumbar spondylosis Once for 1 Occurrences starting 04/28/2021 until 04/28/2021 documented as of this encounter Visit Diagnoses Diagnosis Bulge of lumbar disc without myelopathy- Primary DDD (degenerative disc disease), lumbar Degeneration of lumbar or lumbosacral intervertebral disc Anterolisthesis Lumbar spondylosis Lumbosacral spondylosis without myelopathy Facet arthropathy, lumbar Pain of lumbar facet joint documented in this encounter Discontinued Medications Medication Sig Discontinue Reason Start Date End Da te cyclobenzaprine (FLEXERIL) 10 mg tablet Take 1 tab PO HS PRN Therapy completed 03/17/2021 04/28/2021 documented as of this encounter Historical Medications * This list may reflect changes made after this encounter. predniSONE (DELTASONE) 5 mg tabletIndications:lo w acth Take 5 mg by mouth daily clonazePAM (KlonoPIN) 0.5 mg disintegrating tablet Take 0.5 mg by mouth nightly as needed for anxiety or seizures added in this encounter Care Teams Emt P Relationship Specialty Start Date End Date Kendrick Chacon MD PCP - General 04/27/20 04/30/24 Kendrick Chacon MD Emergency Medicine 04/27/20 Maribell Tomlinson MD [address] [facility] [address] [facility] [place] [address] Consulting Physician Pain Management 04/28/21 documented as of this encounter
--- OUTSIDE RECORDS SUMMARY | 2024-08-18 21:35 | XMS_ITS | Encounter Summary ---
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 Not on file Not on file documented as of this encounter Plan of Treatment Not on file documented as of this encounter Procedures Procedure Name Priority Date/Time Associated Diagnosis Comments XR HAND BILATERAL 3 OR MORE VIEWS OF EACH Schedule Routine, Read Routine (OP Routine) 07/20/2024 1:14 PM MANNEQUIN MAKER Effusion of joint, unspecified location Arthralgia, unspecified joint documented in this encounter Results * XR Hand Bilateral 3 or More Views of Each (07/20/2024 1:14 PM MANNEQUIN MAKER) Anatomical Region Laterality Modality Upper Extremities, Hand Digital Radiography 07/21/2024 7:09 PM MANNEQUIN MAKER Narrative 07/21/2024 7:48 PM MANNEQUIN MAKER EXAM DESCRIPTION: XR WRIST BILATERAL 3 OR [...] D: ??07/21/2024 7:48 PM T: Report ID: [id number] Reading Location: ??[id number] Procedure Note Eh Chu MD - 07/21/2024 [...] by Eh Chu M.D. T: Report ID: [id number] Reading Location: [place] [address] Jessie Sherwood MD IMG XR PROCEDURES Final Re sult documented in this encounter Visit Diagnoses Diagnosis Effusion of joint, unspecified location Arthralgia, unspecified joint documented in this encounter Care Teams Ground Crew Lines Person Relationship Specialty Start Date End Date Keven Gonzalez DO [address] [place] [address] PCP - General Family Medicine 05/29/24 Kendrick Chacon MD Emergency Medicine 04/27/20 Edy Yadav MD [address] [place] [address] Consulting Physician Pain Management 04/28/21 documented as of this encounter
--- OUTSIDE RECORDS SUMMARY | 2024-08-18 21:35 | XMS_ITS | Encounter Summary ---
Author Organization [facility] Address [address] [place] [address] Phone Care Team Providers Care Joint Finisher Name Role Phone Kendrick Chacon MD Unavailable Edy Yadav MD Unavailable Keven Gonzalez DO Primary Care Provider [phone] Encounter Details Date Type Department Care Team (Late st Contact Info) Description 07/22/2024 Documentation [facility] Rheumatology [address] [facility] Advanced Medicine 5th [place] [address] [place] [address] Jessie Sherwood MD [address] [facility] [address] [place], [place] [id number] Social History Tobacco Use Types Packs/Day Years [...] 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 We discussed starting HCQ given erosive disease on xrays, she is agreeable. Side effects of HCQ were discussed in detail with the pt. She will start HCQ 400 mg daily, weight based dose is 440 mg. She will see her program manager transportation locally for a baseline eye exam. 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 [address] [place] [address] Consulting Physician Pain Management 04/28/21 documented as of this encounter
--- OUTSIDE RECORDS SUMMARY | 2024-08-18 21:35 | XMS_ITS | Encounter Summary ---
Author Organization [facility] Address [address] [facility] [place] [address] Care Team Providers Care Supervisor Ride Assembly Name Role Phone Kendrick Chacon MD Primary Care Provider [phone] Reason for Visit * Reason Comments Refill Request Encounter Details Date Type Department Care Team (Late st Contact Info) Description 12/03/2021 Refill [facility] Endocrinology, Diabetes and Metabolism [address] [place] [address], [employer] [facility] [employer] [facility] [place] [id number] Froylan Valle MD [address] [place] [address] of [place], [place] [id number] Refill Request Social History Tobacco Use Types [...] encounter Miscellaneous Notes * Telephone Encounter - Joanna Kolb - 12/04/2021 9:04 AM CDT Refill Request Anat Phelan KENISHA: 07/20/2021Jul due: 10/20/2021Jul scheduled: Visit date not found LRF: 08/16/2021 Qty Disp: 30 # of refills: 3 Allergies: No Known Allergies Pended Medication Order: Requested Prescriptions Pending Prescriptions Disp Refills ??? predniSONE (DELTASONE) 5 MG tablet [Pharmacy Med Name: PREDNISONE 5MG TABLETS] 30 tablet 3 Sig: TAKE 1 TABLET BY MOUTH EVERY DAY documented in this encounter Plan of Treatment Not on file documented as of this encounter Visit Diagnoses Diagnosis Adrenal insufficiency (HCC) Glucocorticoid deficiency documented in this encounter Care Teams Supervisor Ride Assembly Relationship Specialty Start Date End Date Kendrick Chacon MD [address] [place] [id number] PCP - General 04/03/21 documented as of this encounter
--- OUTSIDE RECORDS SUMMARY | 2024-08-18 21:35 | XMS_ITS | Encounter Summary ---
Author Organization [facility] Healthcare Address [address] [place] [address] Care Team Providers Care Disposal Plant Operator Name Role Phone Kendrick Chacon MD Unavailable Edy Yadav MD Unavailable Keven Gonzalez DO Primary Care Provider [phone] Encounter Details Date Type Department Care Team (Late st Contact Info) Description 07/15/2024 3:10 PM CUSTOMER SERVICE SALES ASSOCIATE Lab [facility] ([facility]) [address] [place] [id number] Effusion of joint, unspecified location; Arthralgia, unspecified [...] 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 Not on file Not on file documented as of this encounter Plan of Treatment Pending Results Name Type Priority Associated Diagnoses Date /Time Beta 2 glycoprotein IgG Ab Lab Routine 07/15/2024 12:49 PM CUSTOMER SERVICE SALES ASSOCIATE Beta 2 glycoprotein IgM Ab Lab Routine 07/15/2024 12:49 PM CUSTOMER SERVICE SALES ASSOCIATE documented as of this encounter Procedures Procedure Name Priority Date/Time Associated Diagnosis Comments MYOMARKER PANEL 3 Routine 07/15/2024 12: 49 PM CUSTOMER SERVICE SALES ASSOCIATE Effusion of joint, unspecified location Arthralgia, unspecified joint VASQUEZ QUALITATIVE WITH REFLEX TO VASQUEZ QUANTITATIVE Routine 07/15/2024 12:49 PM CUSTOMER SERVICE SALES ASSOCIATE Effusion of joint, unspecified location Arthralgia, unspecified joint ANTI-DOUBLE STRANDED DNA ANTIBODIES Routine 07/15/2024 12:49 PM CUSTOMER SERVICE SALES ASSOCIATE Effusion of joint, unspecified location Arthralgia, unspecified joint EGFR Routine 07/15/2024 12:49 PM CUSTOMER SERVICE SALES ASSOCIATE Effusion of joint, unspecified location Arthralgia, unspecified joint DIFFERENTIAL AUTO Routine 07/15/2024 12: 49 PM CUSTOMER SERVICE SALES ASSOCIATE Effusion of joint, unspecified location Arthralgia, unspecified joint C4 COMPLEMENT Routine 07/15/2024 12:49 PM CUSTOMER SERVICE SALES ASSOCIATE Effusion of joint, unspecified location Arthralgia, unspecified joint FUAD ANTIBODY EVALUATION WITH REFLEX Routine 07/15/2024 12:49 PM CUSTOMER SERVICE SALES ASSOCIATE Effusion of joint, unspecified location Arthralgia, unspecified joint CARDIOLIPIN ANTIBODY, IGG Routine 07/15/2024 12:49 PM CUSTOMER SERVICE SALES ASSOCIATE Effusion of joint, unspecified location Arthralgia, unspecified joint BETA 2 GLYCOPROTEIN IGM AB Routine 07/15/2024 12:49 PM CUSTOMER SERVICE SALES ASSOCIATE Effusion of joint, unspecified location Arthralgia, unspecified joint BETA 2 GLYCOPROTEIN IGG AB Routine 07/15/2024 12:49 PM CUSTOMER SERVICE SALES ASSOCIATE Effusion of joint, unspecified location Arthralgia, unspecified joint CBC WITH AUTO DIFFERENTIAL Routine 07/15/2024 12:49 PM CUSTOMER SERVICE SALES ASSOCIATE Effusion of joint, unspecified location Arthralgia, unspecified joint HEPATITIS C ANTIBODY Routine 07/15/2024 12:49 PM CUSTOMER SERVICE SALES ASSOCIATE Effusion of joint, unspecified location Arthralgia, unspecified joint CYCLIC CITRUL PEPTIDE ANTIBODY, IGG Routine 07/15/2024 12:49 PM CUSTOMER SERVICE SALES ASSOCIATE Effusion of joint, unspecified location Arthralgia, unspecified joint CRYOGLOBULIN, SERUM AND PLASMA Routine 07/15/2024 12:49 PM CUSTOMER SERVICE SALES ASSOCIATE Effusion of joint, unspecified location Arthralgia, unspecified joint ALDOLASE Routine 07/15/2024 12:49 PM CUSTOMER SERVICE SALES ASSOCIATE Effusion of joint, unspecified location Arthralgia, unspecified joint CARDIOLIPIN ANTIBODY, IGM Routine 07/15/2024 12:49 PM CUSTOMER SERVICE SALES ASSOCIATE Effusion of joint, unspecified location Arthralgia, unspecified joint HEPATITIS B SURFACE ANTIBODY (IMMUNE STATUS) Routine 07/15/2024 12:49 PM CUSTOMER SERVICE SALES ASSOCIATE Effusion of joint, unspecified location Arthralgia, unspecified joint HEPATITIS B SURFACE ANTIGEN Routine 07/15/2024 12:49 PM CUSTOMER SERVICE SALES ASSOCIATE Effusion of joint, unspecified location Arthralgia, unspecified joint ERYTHROCYTE SEDIMENTATION RATE Routine 07/15/2024 12:49 PM CUSTOMER SERVICE SALES ASSOCIATE Effusion of joint, unspecified location Arthralgia, unspecified joint RHEUMATOID FACTOR Routine 07/15/2024 12: 49 PM CUSTOMER SERVICE SALES ASSOCIATE Effusion of joint, unspecified location Arthralgia, unspecified joint C3 COMPLEMENT Routine 07/15/2024 12:49 PM CUSTOMER SERVICE SALES ASSOCIATE Effusion of joint, unspecified location Arthralgia, unspecified joint CREATINE KINASE (CK), TOTAL Routine 07/15/2024 12:49 PM CUSTOMER SERVICE SALES ASSOCIATE Effusion of joint, unspecified location Arthralgia, unspecified joint COMPREHENSIVE METABOLIC PANEL Routine 07/15/2024 12:49 PM CUSTOMER SERVICE SALES ASSOCIATE Effusion of joint, unspecified location Arthralgia, unspecified joint documented in this encounter Results * Beta 2 glycoprotein IgM Ab (07/15/2024 12:49 PM CUSTOMER SERVICE SALES ASSOCIATE) Beta-2 glycoprotein I, IgM 6.4 <=19.9 units/mL Comment: Interpretive Data Negative: <20 U/mL Positive: > or = 20 U/mL ? Beta- 2 glycoprotein 1 (Beta-2 GP1) antibodies are a more specific marker of thrombotic risk. It is expected that some samples will be ACL positive and Beta- 2 GP1 negative. In order to improve specificity, the International Congress on Antiphospholipid Antibodies recommends Beta-2 GP1 antibodies of IgG or IgM isotype ??(> the 99th percentile), obtained twice, at least 12 weeks apart, to support a diagnosis of antiphospholipid syndrome. The cutoff for this assay was developed from data based on the 99th percentile. The Beta-2 GP1 IgM test can produce false positive results due to cross-reactivity with Rheumatoid factor. ??These results were obtained with the ExpertFlyer 2200 System. Beta-2 GP1 IgM values obtained with different manufacturers' assay methods may not be used interchangeably. Current interpretive data was last revised on 2017. Blood 07/15/2024 12:4 9 PM CUSTOMER SERVICE SALES ASSOCIATE 07/15/2024 1:12 PM CUSTOMER SERVICE SALES ASSOCIATE us Jessie Sherwood MD LAB BLOOD ORDERABLES Final Result Performing Organization Address City/State/[facility] Co de Phone Number [facility] Department [place] [address] * Beta 2 glycoprotein IgG Ab (07/15/2024 12:49 PM CUSTOMER SERVICE SALES ASSOCIATE) Beta-2 glycoprotein I, IgG <1.4 <=19.9 units/mL Comment: Interpretive Data Negative: <20 U/mL Positive: > or = 20 U/mL ? Beta-2 glycoprotein 1 (Beta-2 GP1) antibodies are a more specific marker of thrombotic risk. It is expected that some samples will be ACL positive and Beta- 2 LP4awydvhab. In order to improve specificity, the International Congress on Antiphospholipid Antibodies recommends Beta-2 GP1 antibodies of IgG or IgM isotype ??(> the 99th percentile), obtained twice, at least 12 weeks apart, to support a diagnosis of antiphospholipid syndrome. The cutoff for this assay was developed from data based on the 99th percentile. These results were obtained with the ExpertFlyer 2200 System. Beta 2GP1 IgG values obtained with different manufacturers' assay methods may not be used interchangeably. Current interpretive data was last revised on 2017. Blood 07/15/2024 12:4 9 PM CUSTOMER SERVICE SALES ASSOCIATE 07/15/2024 1:12 PM CUSTOMER SERVICE SALES ASSOCIATE us Jessie Sherwood MD LAB BLOOD ORDERABLES Final Result [facility] Department [place] [address] * eGFR (07/15/2024 12:49 PM CUSTOMER SERVICE SALES ASSOCIATE) eGFR >90 >=60 mL/min/1. 73 m2 Comment: Interpretive Data Reference Interval Normal ?>/= 90 mL/min/1.73m2 Mildly decreased* ? 60 - 89 mL/min/1.73m2 Mildly to moderately decreased ?45 - 59 mL/min/1.73m2 Moderately to severely decreased ??30 - 44 mL/min/1.73m2 Severely decreased ?15 - 29 mL/min/1.73m2 Kidney Failure ?< 15 ??mL/min/1.73m2 *Relative to young adult level Estimated glomerular filtration rate is determined by the 2020 CKD-EPI equation recommended by the National Kidney Foundation (A Unifying Approach to GFR Estimation: Recommendations of the NKF-ASK Task Force on Reassessing the Inclusion of Race in Diagnosing Kidney Disease, JASN 2020). The CKD-EPI equation should not be used for patients with unstable renal function and has not been validated in children and those over 70. Current interpretive data was last reviewed 2021. Blood 07/15/2024 12:4 9 PM CUSTOMER SERVICE SALES ASSOCIATE 07/15/2024 1:15 PM CUSTOMER SERVICE SALES ASSOCIATE us Jessie Sherwood MD LAB BLOOD ORDERABLES Final Result [facility] Department [place] [address] * Differential, auto (07/15/2024 12:49 PM CUSTOMER SERVICE SALES ASSOCIATE) Neutrophil abs 3.8 1.5 - 6.5 K/cumm Imm gran abs 0.0 0.0 - 0.1 K/cumm [facility] Lymphocyte abs 1.9 0.8 - 3.3 K/cumm [facility] Monocyte abs 0.6 0.2 - 0.8 K/cumm [facility] Eosinophil abs 0.2 0.0 - 0.5 K/cumm [facility] Basophil abs 0.1 0.0 - 0.1 K/cumm [facility] Neutrophil pct 58.2 % [facility] Comment: Interpretive Data Percent cell count reference ranges are not reported, since discordance with absolute values may lead to misinterpretation of CBC data. Current Interpretive Data was last revised on 2017. Imm gran pct 0.5 % [facility] Comment: Interpretive Data Percent cell count reference ranges are not reported, since discordance with absolute values may lead to misinterpretation of CBC data. Current Interpretive Data was last revised on 2017. Lymphocyte pct 28.5 % [facility] Comment: Interpretive Data Percent cell count reference ranges are not reported, since discordance with absolute values may lead to misinterpretation of CBC data. Current Interpretive Data was last revised on 2017. Monocyte pct 8.6 % [facility] Comment: Interpretive Data Percent cell count reference ranges are not reported, since discordance with absolute values may lead to misinterpretation of CBC data. Current Interpretive Data was last revised on 2017. Eosinophil pct 3.4 % [facility] Comment: Interpretive Data Percent cell count reference ranges are not reported, since discordance with absolute values may lead to misinterpretation of CBC data. Current Interpretive Data was last revised on 2017. Basophil pct 0.8 % [facility] Comment: Interpretive Data Percent cell count reference ranges are not reported, since discordance with absolute values may lead to misinterpretation of CBC data. Current Interpretive Data was last revised on 2017. Blood 07/15/2024 12:4 9 PM CUSTOMER SERVICE SALES ASSOCIATE 07/15/2024 1:11 PM CUSTOMER SERVICE SALES ASSOCIATE Jessie Sherwood MD LAB BLOOD ORDERABLES Final Result Performing Organization Address City/[facility]/ZIP Co de Phone Number [facility] Department [place] [address] * Aldolase (07/15/2024 12:49 PM CUSTOMER SERVICE SALES ASSOCIATE) Aldolase 6.6 0.1 - 8.0 Units/L Blood 07/15/2024 12:4 9 PM CUSTOMER SERVICE SALES ASSOCIATE 07/15/2024 1:11 PM CUSTOMER SERVICE SALES ASSOCIATE Result [facility] Jessie Sherwood MD LAB BLOOD ORDERABLES Final Result Performing Organization Address [facility] Co de Phone Number [facility] Department [place] [address] * VASQUEZ ab ql w/rflx to VASQUEZ qn (07/15/2024 12:49 PM CUSTOMER SERVICE SALES ASSOCIATE) VASQUEZ Negative Comment: Interpretive Data Normal range [...] on 2020. Blood 07/15/2024 12:4 9 PM CUSTOMER SERVICE SALES ASSOCIATE 07/15/2024 1:11 PM CUSTOMER SERVICE SALES ASSOCIATE Jessie Sherwood MD LAB BLOOD ORDERABLES Final Result Performing Organization Address City/[facility] Co de Phone Number [facility] [place] [address] * Anti-double stranded DNA abs (07/15/2024 12:49 PM CUSTOMER SERVICE SALES ASSOCIATE) dsDNA Ab 2.0 <=4.0 IUnits/mL Comment: Interpretive Data Negative: < or = 4 IUnits/mL Indeterminate: 5 - 9 IUnits/mL Positive: > or = 10 IUnits/mL Current interpretive data was last revised on 2017. Blood 07/15/2024 12:4 9 PM CUSTOMER SERVICE SALES ASSOCIATE 07/15/2024 1:11 PM CUSTOMER SERVICE SALES ASSOCIATE Jessie Sherwood MD LAB BLOOD ORDERABLES Final Result Performing Organization Address City/[facility]/ZIP Co de Phone Number [facility] [place] [employer] [place] [address] * C3 complement (07/15/2024 12:49 PM CUSTOMER SERVICE SALES ASSOCIATE) Complement C3 129.0 90.0 - 180.0 mg/dL Blood 07/15/2024 12:4 9 PM CUSTOMER SERVICE SALES ASSOCIATE 07/15/2024 1:11 PM CUSTOMER SERVICE SALES ASSOCIATE Jessie Sherwood MD LAB BLOOD ORDERABLES Final Result Performing Organization Address City/[facility] Co de Phone Number [facility] [place] [place] [address] * C4 complement (07/15/2024 12:49 PM CUSTOMER SERVICE SALES ASSOCIATE) Complement C4 16.1 10.0 - 40.0 mg/dL Blood 07/15/2024 12:4 9 PM CUSTOMER SERVICE SALES ASSOCIATE 07/15/2024 1:11 PM CUSTOMER SERVICE SALES ASSOCIATE Jessie Sherwood MD LAB BLOOD ORDERABLES Final Result Performing Organization Address City/[facility] Co de Phone Number [facility] Department [place] [address] * Cardiolipin antibody, IgG (07/15/2024 12:49 PM CUSTOMER SERVICE SALES ASSOCIATE) Cardiolipin, IgG <1.6 <=19.9 GPL U/mL Comment: [...] EMELYN. These results were obtained with the ExpertFlyer 2200 System. Cardiolipin IgG values obtained with different manufacturers' assay methods may not be used interchangeably. Current interpretive data was last revised on 2017. Blood 07/15/2024 12:4 9 PM CUSTOMER SERVICE SALES ASSOCIATE 07/15/2024 1:12 PM CUSTOMER SERVICE SALES ASSOCIATE Jessie Sherwood MD LAB BLOOD ORDERABLES Final Result Performing Organization Address [facility] Co de Phone Number [facility] Department [place] [address] * Cardiolipin antibody, IgM (07/15/2024 12:49 PM CUSTOMER SERVICE SALES ASSOCIATE) [facility] Cardiolipin, IgM 8.0 <=19.9 MPL U/mL Comment: [...] antibodies. ??These results were obtained with the ExpertFlyer 2200 System. Cardiolipin IgM values obtained with different manufacturers' assay methods may not be used interchangeably. Current interpretive data was last revised on 2017. Blood 07/15/2024 12:4 9 PM CUSTOMER SERVICE SALES ASSOCIATE 07/15/2024 1:12 PM CUSTOMER SERVICE SALES ASSOCIATE us Jessie Sherwood MD LAB BLOOD ORDERABLES Final Result [facility] Department [place] [address] * (ABNORMAL) CBC with auto differential (07/15/2024 12:49 PM CUSTOMER SERVICE SALES ASSOCIATE) [facility] WBC 6.5 3.8 - 9.9 K/cumm Hgb 11.5(L) 11.9 - 15.5 g/dL [facility] Hct 36.5 35.6 - 45.5 % [facility] Plt 292 150 - 400 K/cumm [facility] MPV 9.3 9.1 - 12.[address] [facility] RBC 3.99 3.90 - 5.20 M/cumm [facility] MCV 91.5 81.3 - 96.[address] [facility] MCH 28.8 27.1 - 33.[address] [facility] MCHC 31.5(L) 32.3 - 35.7 g/dL [facility] RDW CV 14.3 11.1 - 14.9 % [facility] RDW SD 48.4(H) 35.7 - 48.[address] [facility] NRBC abs 0.00 0.00 - 0.01 K/cumm [facility] Blood 07/15/2024 12:4 9 PM CUSTOMER SERVICE SALES ASSOCIATE 07/15/2024 1:11 PM CUSTOMER SERVICE SALES ASSOCIATE us Jessie Sherwood MD LAB BLOOD ORDERABLES Final Result [facility] Department [place] [address] * (ABNORMAL) Comprehensive metabolic panel (07/15/2024 12:49 PM CUSTOMER SERVICE SALES ASSOCIATE) Sodium 142 135 - 145 mmol/L Potassium, pl 3.0(L) 3.3 - 4.9 mmol/L [facility] Chloride 103 97 - 110 mmol/L [facility] CO2 28 22 - 32 mmol/L [facility] Anion gap 11 2 - 15 mmol/L [facility] BUN 8 6 - 25 mg/dL [facility] Creatinine 0.76 0.60 - 1.10 mg/dL [facility] Glucose 85 70 - 199 mg/dL [facility] Comment: Interpretive Data Fasting glucose >/= [...] 2022. Calcium 9.1 8.5 - 10.3 mg/dL [facility] Bilirubin, total 0.4 0.1 - 1.2 mg/dL [facility] Protein, pl 6.2(L) 6.5 - 8.5 g/dL [facility] Albumin 4.3 3.5 - 5.0 g/dL [facility] Alk phos 87 40 - 130 Units/L [facility] ALT 19 7 - 45 Units/L [facility] AST 20 10 - 45 Units/L [facility] Blood 07/15/2024 12:4 9 PM CUSTOMER SERVICE SALES ASSOCIATE 07/15/2024 1:11 PM CUSTOMER SERVICE SALES ASSOCIATE Jessie Sherwood MD LAB BLOOD ORDERABLES Final Result Performing Organization Address City/[facility] Co de Phone Number [facility] Department [place] [address] * Creatine kinase (CK), total (07/15/2024 12:49 PM CUSTOMER SERVICE SALES ASSOCIATE) CK 135 30 - 200 Units/L Blood 07/15/2024 12:4 9 PM CUSTOMER SERVICE SALES ASSOCIATE 07/15/2024 1:11 PM CUSTOMER SERVICE SALES ASSOCIATE Jessie Sherwood MD LAB BLOOD ORDERABLES Final Result Performing Organization Address [facility] de Phone Number [facility] Department [place] [address] * Cryoglobulin, Serum and Plasma (07/15/2024 12:49 PM CUSTOMER SERVICE SALES ASSOCIATE) Cryoglobulin, quant See Footnote Negative [facility] Comment: Negative. This test is negative at 24 hours. All samples are held and reviewed again at 7 days. If delayed precipitation occurs after 7 days, Immunofixation will be performed and an additional report will follow. Cryofibrinogen Negative Negative [facility] Comment: Test Performed by: [facility] [place][Note 2] [address] [place] [address] Horizontal Drill Operator: Jacqueline Dinero Ph.D.; IA# [id number] Blood 07/15/2024 12:4 9 PM CUSTOMER SERVICE SALES ASSOCIATE 07/15/2024 2:16 PM CUSTOMER SERVICE SALES ASSOCIATE Jessie Sherwood MD LAB BLOOD ORDERABLES Final Result Performing Organization Address [facility] Co de Phone Number [facility] [place] [address] [facility] * Cyclic citrul peptide antibody, IgG (07/15/2024 12:49 PM CUSTOMER SERVICE SALES ASSOCIATE) CCP Ab <0.5 <=2.9 units/mL Comment: Interpretive data Negative: <3 units/mL Positive: > or equal to 3 units/mL Current interpretive data was last revised on 2016. Blood 07/15/2024 12:4 9 PM CUSTOMER SERVICE SALES ASSOCIATE 07/15/2024 1:11 PM CUSTOMER SERVICE SALES ASSOCIATE Result [facility] Jessie Sherwood MD LAB BLOOD ORDERABLES Final Result Performing Organization Address [facility] de Phone Number [facility] [place] [place] [address] * FUAD ab eval w/reflex (07/15/2024 12:49 PM CUSTOMER SERVICE SALES ASSOCIATE) FUAD ab Negative Negative Comment: Interpretive Data Positive Screens will be reflexed to specific testing for Antibodies against the following antigens: Aditi-1 Ab, GOVERNMENT PROFESSOR Ab, Scl-70 Ab, Dickinson Ab, SS-A/Ro Ab, and SS- B/La Ab. Further testing for dsDNA, Centromere, or Ribosomal P antibodies is suggested in patient with a positive screen and negative specific antibodies. Current interpretive data was last revised on 2023. Blood 07/15/2024 12:4 9 PM CUSTOMER SERVICE SALES ASSOCIATE 07/15/2024 1:11 PM CUSTOMER SERVICE SALES ASSOCIATE us Jessie Sherwood MD LAB BLOOD ORDERABLES Final Result Performing Organization Address [facility] Co de Phone Number [facility] [place] [address] * Erythrocyte sedimentation rate (07/15/2024 12:49 PM CUSTOMER SERVICE SALES ASSOCIATE) Pathologist [facility] Erythrocyte sedimentation rate 6 1 - 20 mm/hr Blood 07/15/2024 12:4 9 PM CUSTOMER SERVICE SALES ASSOCIATE 07/15/2024 1:11 PM CUSTOMER SERVICE SALES ASSOCIATE Jessie Sherwood MD LAB BLOOD ORDERABLES Final Result Performing Organization Address [facility] [place] [address] * Hepatitis B surface antibody (immune status) Blood (07/15/2024 12:49 PM CUSTOMER SERVICE SALES ASSOCIATE) Pathologist [facility] HBsAb (immune status) Reactive Comment:This result is consi stent with immunity to Hepatitis B Virus when used in the setting of routine screening. Current interpretive data was last revised on 22 HBsAb (immune status) index 219.0 mIUnits/m L [facility] Blood 07/15/2024 12:4 9 PM CUSTOMER SERVICE SALES ASSOCIATE 07/15/2024 1:25 PM CUSTOMER SERVICE SALES ASSOCIATE us Jessie Sherwood MD LAB MICROBIOLOGY - GENERAL ORDERABLES Final Result Performing Organization Address [facility] Co de Phone Number [facility] Department [place] [address] * Hepatitis B Surface Antigen Blood (07/15/2024 12:49 PM CUSTOMER SERVICE SALES ASSOCIATE) Pathologist [facility] HepBsAg Nonreactive Nonreactive Blood 07/15/2024 12:4 9 PM CUSTOMER SERVICE SALES ASSOCIATE 07/15/2024 1:25 PM CUSTOMER SERVICE SALES ASSOCIATE us Jessie Sherwood MD LAB MICROBIOLOGY - GENERAL ORDERABLES Final Result Performing Organization Address City/[facility] Co de Phone Number [facility] Department [place] [address] * Hepatitis C antibody Blood (07/15/2024 12:49 PM CUSTOMER SERVICE SALES ASSOCIATE) Hep C Ab Nonreactive Nonreactive Comment:Antibodies to HCV no t detected. Does NOT exclude the possibility of recent exposure to HCV. Current interpretive data was last revised on 22 Blood 07/15/2024 12:4 9 PM CUSTOMER SERVICE SALES ASSOCIATE 07/15/2024 1:25 PM CUSTOMER SERVICE SALES ASSOCIATE Jessie Sherwood MD LAB MICROBIOLOGY - GENERAL ORDERABLES Final Result Performing Organization Address [facility] Co de Phone Number [facility] Department [place] [address] * Myomarker panel 3 (07/15/2024 12:49 PM CUSTOMER SERVICE SALES ASSOCIATE) Anti-Aditi-1 ab <20 <20 Units [facility] Anti PL-7 ab Negative Negative [facility] Comment: This test was developed and its performance characteristics determined by [facility]. It has not been cleared or approved by the Food and Drug Administration. Anti PL-12 ab Negative Negative [facility] Comment: This test was developed and its performance characteristics determined by [facility]. It has not been cleared or approved by the Food and Drug Administration. Anti EJ ab Negative Negative [facility] Comment: This test was developed and its performance characteristics determined by [facility]. It has not been cleared or approved by the Food and Drug Administration. Anti OJ ab Negative Negative [facility] Comment: This test was developed and its performance characteristics determined by [facility]. It has not been cleared or approved by the Food and Drug Administration. Anti SRP ab Negative Negative [facility] Comment: This test was developed and its performance characteristics determined by [facility]. It has not been cleared or approved by the Food and Drug Administration. Anti Mi-2 ab Negative Negative [facility] Comment: This test was developed and its performance characteristics determined by [facility]. It has not been cleared or approved by the Food and Drug Administration. Polymyositis PM-SCL ab <20 <[address] [facility] Comment: This test was developed and its performance characteristics determined by [facility]. It has not been cleared or approved by the Food and Drug Administration. Fibrillarin U3 ab Negative Negative [facility] Comment: This test was developed and its performance characteristics determined by [facility]. It has not been cleared or approved by the Food and Drug Administration. ?Interpretation for Anti-Aditi-1, [id number], ?Anti-MDA-5, Anti-NXP-2, Anti-PM/Scl-100, ?Anti-SS-A 52 kD, Anti-U1 GOVERNMENT PROFESSOR: ?Negative: ?<20 ?Weak Positive: ? 20 - 39 ?Moderate Positive: ? 40 - 80 ?Strong Positive: ? >80 ?. Test Performed by: [facility] [address] [place] [address] Anti U2 SN GOVERNMENT PROFESSOR ab Negative Negative [facility] Comment: This test was developed and its performance characteristics determined by [facility]. It has not been cleared or approved by the Food and Drug Administration. Anti U1RNP ab <20 <[address] [facility] Anti KU ab Negative Negative [facility] Comment: This test was developed and its performance characteristics determined by [facility]. It has not been cleared or approved by the Food and Drug Administration. P155/140 ab <20 <[address] [facility] Comment: This test was developed and its performance characteristics determined by [facility]. It has not been cleared or approved by the Food and Drug Administration. MDA-5 P140 ab <20 <[address] [facility] Comment: This test was developed and its performance characteristics determined by [facility]. It has not been cleared or approved by the Food and Drug Administration. NXP-2 P140 ab <20 <[address] [facility] Comment: This test was developed and its performance characteristics determined by [facility]. It has not been cleared or approved by the Food and Drug Administration. SSA52 KD ab IgG <20 <[address] [facility] Comment: This test was developed and its performance characteristics determined by [facility]. It has not been cleared or approved by the Food and Drug Administration. 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 07/15/2024 1:11 PM CUSTOMER SERVICE SALES ASSOCIATE Jessie Sherwood MD LAB BLOOD ORDERABLES Final Result Performing Organization Address City/State/[facility] Co de Phone Number [facility] Department [place] [address] documented in this encounter Visit Diagnoses Diagnosis Effusion of joint, unspecified location Arthralgia, unspecified joint documented in this encounter Care Teams Disposal Plant Operator Relationship Specialty Start Date End Date Keven Gonzalez DO [address] [place] [id number] PCP - General Family Medicine 05/29/24 Kendrick Chacon MD Emergency Medicine 04/27/20 Edy Yadav MD [address] [facility] [place] [address] Consulting Physician Pain Management 04/28/21 documented as of this encounter
--- OUTSIDE RECORDS SUMMARY | 2024-08-18 21:35 | XMS_ITS | Encounter Summary ---
Author Organization [facility] Healthcare Address [address] [place] [address] Care Team Providers Care Oxygen Therapist Name Role Phone Kendrick Chacon MD Primary Care Provider [phone] Kendrick Chacon MD Unavailable Edy Yadav MD Unavailable Encounter Details Date Type Department Care Team (Late st Contact Info) Description 05/18/2021 Orders Only 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
--- OUTSIDE RECORDS SUMMARY | 2024-08-18 21:35 | XMS_ITS | Encounter Summary ---
Author Organization [facility] Healthcare Address [address] [place] [address] Care Team Providers Care Vision Therapist Name Role Phone Kendrick Chacon MD Primary Care Provider [phone] Kendrick Chacon MD Unavailable Edy Yadav MD Unavailable Reason for Visit * Reason Comments Back Pain Encounter Details Date Type Department Care Team (Latest Contact Info) Description 05/10/2021 1:42 PM CDT - 05/10/2021 11:59 PM CDT Hospital Encounter [facility] [address] [place] [id number] Edy Yadav MD [address] [place] [address] [place] [address] Facet arthropathy, lumbar (Primary Dx); Pain of lumbar facet joint Discharge Disposition: [...] 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 on file Not on file documented as of this encounter Last Filed Vital Signs Vital Sign Reading Time Taken Comments Blood Pressure 141/84 05/10/2021 3:55 PM CDT Pulse 72 05/10/2021 3:55 PM CDT Temperature 37.4 ??C (99.3 ??F) 05/10/2021 2:14 PM CD T Respiratory Rate 18 05/10/2021 3:55 PM CDT Oxygen Saturation 97% 05/10/2021 3:55 PM CDT Inhaled Oxygen Concentration - - Weight - - Height - - Body Mass Index - - documented in this encounter Discharge Instructions * Discharge Instructions* Kimberly Broussard RN - 05/10/2021 3:57 PM CDT POST DIAGNOSTIC MEDIAL BRANCH BLOCK DISCHARGE INSTRUCTIONS PROVIDED AND REVIEWED WITH PATIENT. PATIENT INSTRUCTED TO FILL OUT PAIN DIARY AND BRING BACK TO NEXT APPOINTMENT. documented in this encounter Medications at Time [...] documented in this encounter H&P Notes * Edy Yadav MD - 05/10/2021 2:00 PM CDT I have reviewed the H&P, examined the patient, and endorse the findings as written. Plan of Care : Based on the above findings, I consider Anat Phelan to be an acceptable risk for the procedure today. Source Note - Edy Yadav MD - 04/28/2021 2:30 PM CDT New [...] is continuous. The pain is associated with sta nding sitting lying down walking lifting twisting bending using stairs changing position reaching and running. In addition to back pain patient also complains of neck pain. She has a chronic pain since 2019. Lower back pain bother her more than neck pain. The patient does not have bowel and bladderincontinence associated with the back pain. Patient has [...] without spinal canal or lateral recess stenosis. [id number] bilateral foraminal narrowing. SACRUM: Visualized upper sacrum [...] procedure as scheduled. documented in this encounter Procedure Notes * Edy Yadav MD - 05/10/2021 12:00 AM CDT Preop Diagnoses 1. 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 2. Lumbar spondylosis. 3. Chronic lower back pain. Postop diagnoses 1. 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 2. Lumbar spondylosis. 3. Chronic lower back pain. Procedure Bilateral L3-4, bilateral L4-5 and bilateral L5-S1 facet joint medial branch nerve and the dorsal primary ramus diagnostic nerve block with fluoroscopic guidance. Indication To determine if the patient is a candidate for lumbar facet joint nerve radiofrequency ablation. Description of Procedure After obtaining informed consent, the patient was taken to the procedure room, placed in the prone position on the table. The patient's lower back was prepared and draped in sterile fashion. Local anesthesia was obtained with 1% lidocaine. For right L5 dorsal primary ramus diagnostic nerve block, with multiplane fluoroscopic guidance, a 22-gauge spinal needle was placed into the groove between right S1 superior articular process and the right sacral ala. Aspiration negative for blood or CSF. Then 1 mL of 0.25% Marcaine was injected to block right L5 dorsal primary ramus. The needle was removed after right L5 dorsal primary ramus block. For right L4 medial branch nerve block, with multiplane fluoroscopic guidance, a 22-gauge spinal needle was placed into the junction between right L5 transverse process and the right L5 superior articular process. Aspiration negative for blood or CSF. Then 1 mL of 0.25% Marcaine was injected to block right L4 medial branch nerve. The needle was removed after right L4 medial branch nerve block. For right L3 medial branch nerve block, with multiplane fluoroscopic guidance, a 22-gauge spinal needle was placed into the junction between right L4 transverse process and the right L4 superior articular process. Aspiration negative for blood or CSF. Then 1mL of 0.25% Marcaine was injected to block right L3 medial branch nerve. The needle was removed offthe right L3 medial branch nerve block. For right L2 medial branch nerve block, with multiplane fluoroscopic guidance, a 22-gauge spinal needle was then placed into the junction between right L3 transverse process and the right L3 superior articular process. Aspiration negative for blood or CSF. Then 1 mL of 0.25% Marcaine was injected to block right L2 medial branch nerve. The needle was removedafter right L2 medial branch nerve block. In a similar technique, left L5 dorsal primary ramus, left L4 medial branch nerve, left L3 medial branch nerve, and the left L2 medial branch nerve were alsodiagnostically blocked with 1 mL of 0.25% Marcaine. The needle was removed after each left-sided lumbar facet joint and medial branch nerve or dorsal primary ramus block. The patient tolerated procedure well without difficulty. The patient's back was cleansed and bandage applied to needle insertionsite. Disposition After appropriate monitoring and recovery time, the patient was discharged home in stable condition. Standard discharge instructions were given to the patient. The patient will be followed up at the clinic per schedule. Thank you for asking me to participate in the care of this patient. Job ID/VF Job ID: [id number] documented in this encounter Plan of Treatment Not on file documented as of this encounter Visit Diagnoses Diagnosis Facet arthropathy, lumbar- Primary Pain of lumbar facet joint documented in this encounter Care Teams Vision Therapist Relationship Specialty Start Date End Date Kendrick Chacon MD PCP - General 04/27/20 04/30/24 Kendrick Chacon MD Emergency Medicine 04/27/20 Edy Yadav MD [address] [facility] [place] [address] Consulting Physician Pain Management 04/28/21 documented as of this encounter
--- OUTSIDE RECORDS SUMMARY | 2024-08-18 21:35 | XMS_ITS | Referral Summary ---
Author Organization [facility] Address [address] [place] [address] Care Team Providers Care Oracle Database Developer Name Role Phone Kendrick Chacon MD Unavailable Edy Yadav MD Unavailable Keven Gonzalez DO Primary Care Provider [phone] Encounters Date Type Department Care Team Description 07/22/2024 Documentation [facility] [address] [facility] 5th [place] [address] [place] [address] Jessie Sherwood MD 07/22/2024 Telephone [facility] [address] [facility] 5th [place] [address] Jessie Sherwood MD 07/20/2024 1:00 PM BONUS CLERK Ancillary Procedure [facility] Imaging at [address] [phone] Effusion of joint, unspecified location; Arthralgia, unspecified joint 07/20/2024 12:45 PM BONUS CLERK Ancillary Procedure [facility] at [address] [phone] Effusion of joint, unspecified location; Arthralgia, unspecified joint 07/20/2024 12:30 PM BONUS CLERK Ancillary Procedure [facility] Imaging at [address] [phone] Effusion of joint, unspecified location; Arthralgia, unspecified joint 07/15/2024 3:10 PM BONUS CLERK Lab [facility] Medicine [facility] ([facility]) [address] [place] [address] Effusion of joint, unspecified location; Arthralgia, unspecified joint 07/15/2024 10:40 AM BONUS CLERK Office Visit [facility] [address] [facility] Medicine 5th [place] [address] [place] [address] Jessie Sherwood MD Arthralgia, unspecified joint (Primary Dx); Effusion of joint, unspecified location from Last 3 Months Allergies Active Allergy Reactions Criticality Noted Date Comments Naproxen Other (See comments) Low 04/14/2024 Heightens acid reflux Medications albuterol HFA (PROVENTIL HFA,VENTOLIN HFA,PROAIR HFA) 90 mcg/actuation inhaler Inhale 2 puffs every 6 (six) hours as needed 01/02/20 17 Active citalopram (CeleXA) 20 mg tablet Take 2 tablets (40 mg total) by mouth daily 04/13/20 20 Active omeprazole (PriLOSEC) 20 mg capsule Take 20 mg by mouth daily Active fluticasone propion-salmeteroL (AIRDUO RESPICLICK) 55-14 mcg/actuation inhaler 06/09/20 20 Active terbinafine (LamISIL) 1 % cream RENNY EXT AA BID 06/09/20 20 Active tolterodine LA (DETROL LA) 4 mg 24 hr capsule Take by mouth daily 09/05/19 21 Active clonazePAM (KlonoPIN) 0.5 mg disintegrating tablet Take 0.5 mg by mouth nightly as needed for anxiety or seizures Active predniSONE (DELTASONE) 5 mg tabletIndications: low acth Take 5 mg by mouth daily Active cyclobenzaprine (FLEXERIL) 10 mg tablet TAKE 1 TABLET BY MOUTH AT BEDTIME NEEDED 30 tablet 05/03/20 21 Active gabapentin (NEURONTIN) 100 mg capsule Take 2 capsules (200 mg total) by mouth every 8 (eight) hours 180 capsule 05/18/20 21 Active acetaminophen (TYLENOL) 500 mg tablet Acetaminophen Extra Strength 500 mg tablet 04/11/20 20 Active Eliquis 5 mg tablet Take by oral route for 30 days. 03/02/20 24 Active atorvastatin (LIPITOR) 10 mg tablet Take 1 tablet (10 mg total) by mouth nightly at bedtime Active baclofen (LIORESAL) 20 mg tablet Take 1 tablet (20 mg total) by mouth every 8 (eight) hours as needed Active buPROPion XL (WELLBUTRIN XL) 150 mg 24 hr tablet Take 1 tablet (150 mg total) by mouth daily Active diclofenac DR (VOLTAREN) 75 mg EC tablet TAKE 1 TABLET BY MOUTH EVERY 12 HOURS WITH FOOD NEEDED Active docusate sodium (COLACE) 100 mg capsule TAKE 1 CAPSULE BY MOUTH TWICE DAILY DIRECTED Active ergocalciferol (VITAMIN D) 50,000 unit capsule TAKE 1 CAPSULE BY MOUTH EVERY WEEK DIRECTED 07/12/20 21 Active Pepcid 40 mg tablet 06/11/20 23 Active FeroSuL 325 mg (65 mg iron) tablet TAKE 1 TABLET BY MOUTH TWICE DAILY AFTER A MEAL Active furosemide (LASIX) 20 mg tablet Take 1 tablet (20 mg total) by mouth daily Active ipratropium-albute roL (DUO-NEB) 0.5-2.5 mg/3 mL nebulizer solution USE 3 ML VIA NEBULIZER EVERY 6 TO 8 HOURS NEEDED Active polyethylene glycol (MIRALAX) 17 gram/dose bulk powder DISSOLVE 17 GRAMS IN LIQUID AND DRINK BY MOUTH EVERY DAY DIRECTED Active umeclidinium-vilan teroL (ANORO ELLIPTA) 62.5-25 mcg/actuation blister with device 1 puff daily Active hydroxychloroquine (PLAQUENIL) 200 mg tabletIndications: Arthralgia, unspecified joint Take 1 tablet (200 mg total) by mouth 2 (two) times a day 60 tablet 5 07/22/20 24 Active Active Problems Problem Noted Date Diagnosed Date Adrenal insufficiency 04/19/2021 Prior with demise 01/30/2017 Encounter for anatomic survey 01/29/2017 Social History Tobacco Use Types Packs/Day [...] 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 Not on file Not on file Last Filed Vital Signs Vital Sign Reading Time Taken Comments Blood Pressure 135/81 07/15/2024 10:44 AM BONUS CLERK Pulse 70 07/15/2024 10:44 AM BONUS CLERK Temperature 36.7 ??C (98 ??F) 07/15/2024 10:44 AM BONUS CLERK Respiratory Rate 18 05/10/2021 3:55 PM CDT Oxygen Saturation 97% 05/10/2021 3:55 PM CDT Inhaled Oxygen Concentration - - Weight 88 kg (194 lb) 07/15/2024 10:44 AM BONUS CLERK Height 165.1 cm (5' 5 ) 07/15/2024 10:44 AM BONUS CLERK Body Mass Index 32.28 07/15/2024 10:44 AM BONUS CLERK Plan of Treatment Not on file Procedures Procedure Name Priority Date/Time Associated Diagnosis Comments XR CHEST PA LATERAL 2 VIEWS Schedule Routine, Read Routine (OP Routine) 07/20/2024 1:14 PM BONUS CLERK Effusion of joint, unspecified location Arthralgia, unspecified joint XR HAND BILATERAL 3 OR MORE VIEWS OF EACH Schedule Routine, Read Routine (OP Routine) 07/20/2024 1:14 PM BONUS CLERK Effusion of joint, unspecified location Arthralgia, unspecified joint XR WRIST BILATERAL 3 OR MORE VIEWS Schedule Routine, Read Routine (OP Routine) 07/20/2024 1:14 PM BONUS CLERK Effusion of joint, unspecified location Arthralgia, unspecified joint BETA 2 GLYCOPROTEIN IGM AB Routine 07/15/2024 12:49 PM BONUS CLERK Effusion of joint, unspecified location Arthralgia, unspecified joint BETA 2 GLYCOPROTEIN IGG AB Routine 07/15/2024 12:49 PM BONUS CLERK Effusion of joint, unspecified location Arthralgia, unspecified joint EGFR Routine 07/15/2024 12:49 PM BONUS CLERK Effusion of joint, unspecified location Arthralgia, unspecified joint DIFFERENTIAL AUTO Routine 07/15/2024 12: 49 PM BONUS CLERK Effusion of joint, unspecified location Arthralgia, unspecified joint ALDOLASE Routine 07/15/2024 12:49 PM BONUS CLERK Effusion of joint, unspecified location Arthralgia, unspecified joint VASQUEZ QUALITATIVE WITH REFLEX TO VASQUEZ QUANTITATIVE Routine 07/15/2024 12:49 PM BONUS CLERK Effusion of joint, unspecified location Arthralgia, unspecified joint ANTI-DOUBLE STRANDED DNA ANTIBODIES Routine 07/15/2024 12:49 PM BONUS CLERK Effusion of joint, unspecified location Arthralgia, unspecified joint C3 COMPLEMENT Routine 07/15/2024 12:49 PM BONUS CLERK Effusion of joint, unspecified location Arthralgia, unspecified joint C4 COMPLEMENT Routine 07/15/2024 12:49 PM BONUS CLERK Effusion of joint, unspecified location Arthralgia, unspecified joint CARDIOLIPIN ANTIBODY, IGG Routine 07/15/2024 12:49 PM BONUS CLERK Effusion of joint, unspecified location Arthralgia, unspecified joint CARDIOLIPIN ANTIBODY, IGM Routine 07/15/2024 12:49 PM BONUS CLERK Effusion of joint, unspecified location Arthralgia, unspecified joint CBC WITH AUTO DIFFERENTIAL Routine 07/15/2024 12:49 PM BONUS CLERK Effusion of joint, unspecified location Arthralgia, unspecified joint COMPREHENSIVE METABOLIC PANEL Routine 07/15/2024 12:49 PM BONUS CLERK Effusion of joint, unspecified location Arthralgia, unspecified joint CREATINE KINASE (CK), TOTAL Routine 07/15/2024 12:49 PM BONUS CLERK Effusion of joint, unspecified location Arthralgia, unspecified joint CRYOGLOBULIN, SERUM AND PLASMA Routine 07/15/2024 12:49 PM BONUS CLERK Effusion of joint, unspecified location Arthralgia, unspecified joint CYCLIC CITRUL PEPTIDE ANTIBODY, IGG Routine 07/15/2024 12:49 PM BONUS CLERK Effusion of joint, unspecified location Arthralgia, unspecified joint FUAD ANTIBODY EVALUATION WITH REFLEX Routine 07/15/2024 12:49 PM BONUS CLERK Effusion of joint, unspecified location Arthralgia, unspecified joint ERYTHROCYTE SEDIMENTATION RATE Routine 07/15/2024 12:49 PM BONUS CLERK Effusion of joint, unspecified location Arthralgia, unspecified joint MYOMARKER PANEL 3 Routine 07/15/2024 12: 49 PM BONUS CLERK Effusion of joint, unspecified location Arthralgia, unspecified joint RHEUMATOID FACTOR Routine 07/15/2024 12: 49 PM BONUS CLERK Effusion of joint, unspecified location Arthralgia, unspecified joint HEPATITIS B SURFACE ANTIBODY (IMMUNE STATUS) Routine 07/15/2024 12:49 PM BONUS CLERK Effusion of joint, unspecified location Arthralgia, unspecified joint HEPATITIS B SURFACE ANTIGEN Routine 07/15/2024 12:49 PM BONUS CLERK Effusion of joint, unspecified location Arthralgia, unspecified joint HEPATITIS C ANTIBODY Routine 07/15/2024 12:49 PM BONUS CLERK Effusion of joint, unspecified location Arthralgia, unspecified joint from Last 3 Months Results * X-ray chest 2 views (07/20/2024 1:14 PM BONUS CLERK) Anatomical Region Laterality Modality Body, Chest N/A Digital Radiogra phy 07/22/2024 9:24 PM BONUS CLERK Narrative 07/22/2024 9:26 PM BONUS CLERK EXAM DESCRIPTION: XR CHEST PA LATERAL 2 [...] D: ??07/22/2024 9:26 PM T: Report ID: [id number] Reading Location: ??[id number] Procedure Note Eh Gill MD - 07/22/2024 [...] signed by Eh BELL T: Report ID: [id number] Reading Location: [id number] us Jessie Sherwood MD IMG XR PROCEDURES Final Re sult * XR Wrist Bilateral 3 or More Views (07/20/2024 1:14 PM BONUS CLERK) Anatomical Region Laterality Modality Upper Extremities, Wrist Digital Radiography 07/21/2024 7:09 PM BONUS CLERK Narrative 07/21/2024 7:48 PM BONUS CLERK EXAM DESCRIPTION: XR WRIST BILATERAL 3 OR [...] 07/21/2024 7:48 PM - Electronically signed by ??hE Chu M.D. D: ??07/21/2024 7:48 PM T: Report ID: [id number] Reading Location: ??[id number] Procedure Note Eh Chu MD - 07/21/2024 [...] by Eh Chu M.D. T: Report ID: [id number] Reading Location: [place] [id number] us Jessie Sherwood MD IMG XR PROCEDURES Final Re sult * XR Hand Bilateral 3 or More Views of Each (07/20/2024 1:14 PM BONUS CLERK) Anatomical Region Laterality Modality Upper Extremities, Hand Digital Radiography 07/21/2024 7:09 PM BONUS CLERK Narrative 07/21/2024 7:48 PM BONUS CLERK EXAM DESCRIPTION: XR WRIST BILATERAL 3 OR [...] D: ??07/21/2024 7:48 PM T: Report ID: [id number] Reading Location: ??[id number] Procedure Note Eh Chu MD - 07/21/2024 [...] by Eh Chu M.D. T: Report ID: [id number] Reading Location: [id number] Jessie Sherwood MD IMG XR PROCEDURES Final Re sult * Myomarker panel 3 (07/15/2024 12:49 PM BONUS CLERK) Anti-Aditi-1 ab <20 <20 Units [facility] Anti PL-7 ab Negative Negative [facility] Comment: This test was developed and its performance characteristics determined by [facility]. It has not been cleared or approved by the Food and Drug Administration. Anti PL-12 ab Negative Negative [facility] Comment: This test was developed and its performance characteristics determined by [facility]. It has not been cleared or approved by the Food and Drug Administration. Anti EJ ab Negative Negative [facility] Comment: This test was developed and its performance characteristics determined by [facility]. It has not been cleared or approved by the Food and Drug Administration. Anti OJ ab Negative Negative [facility] Comment: This test was developed and its performance characteristics determined by [facility]. It has not been cleared or approved by the Food and Drug Administration. Anti SRP ab Negative Negative [facility] Comment: This test was developed and its performance characteristics determined by [facility]. It has not been cleared or approved by the Food and Drug Administration. Anti Mi-2 ab Negative Negative [facility] Comment: This test was developed and its performance characteristics determined by [facility]. It has not been cleared or approved by the Food and Drug Administration. Polymyositis PM-SCL ab <20 <20 Units [facility] Comment: This test was developed and its performance characteristics determined by [facility]. It has not been cleared or approved by the Food and Drug Administration. Fibrillarin U3 ab Negative Negative [facility] Comment: This test was developed and its performance characteristics determined by [facility]. It has not been cleared or approved by the Food and Drug Administration. ?Interpretation for Anti-Aditi-1, [id number], ?Anti-MDA-5, Anti-NXP-2, Anti-PM/Scl-100, ?Anti-SS-A 52 kD, Anti-U1 PARTS INTERPRETER: ?Negative: ?<20 ?Weak Positive: ? 20 - 39 ?Moderate Positive: ? 40 - 80 ?Strong Positive: ? >80 ?. Test Performed by: [facility] [address] [place] [address] Anti U2 SN PARTS INTERPRETER ab Negative Negative [facility] Comment: This test was developed and its performance characteristics determined by [facility]. It has not been cleared or approved by the Food and Drug Administration. Anti U1RNP ab <20 <20 Units [facility] [place] Anti KU ab Negative Negative [facility] Comment: This test was developed and its performance characteristics determined by [facility]. It has not been cleared or approved by the Food and Drug Administration. P155/140 ab <20 <20 Units [facility] Comment: This test was developed and its performance characteristics determined by [facility]. It has not been cleared or approved by the Food and Drug Administration. MDA-5 P140 ab <20 <20 Units [facility] Comment: This test was developed and its performance characteristics determined by [facility]. It has not been cleared or approved by the Food and Drug Administration. NXP-2 P140 ab <20 <20 Units [facility] Comment: This test was developed and its performance characteristics determined by [facility]. It has not been cleared or approved by the Food and Drug Administration. SSA52 KD ab IgG <20 <20 Units [facility] Comment: This test was developed and its performance characteristics determined by [facility]. It has not been cleared or approved by the Food and Drug Administration. Blood 07/15/2024 12:4 9 PM BONUS CLERK 07/15/2024 1:48 PM BONUS CLERK Jessie Sherwood MD LAB BLOOD ORDERABLES Final Result [facility] [place] [address] [place] ref [facility] * VASQUEZ ab ql w/rflx to VASQUEZ qn (07/15/2024 12:49 PM BONUS CLERK) VASQUEZ Negative Comment: Interpretive Data Normal range [...] on 2020. Blood 07/15/2024 12:4 9 PM BONUS CLERK 07/15/2024 1:11 PM BONUS CLERK Jessie Sherwood MD LAB BLOOD ORDERABLES Final Result Performing Organization Address [facility] de Phone Number [facility] [place] [address] * Anti-double stranded DNA abs (07/15/2024 12:49 PM BONUS CLERK) [facility] dsDNA Ab 2.0 <=4.0 IUnits/mL Comment: Interpretive Data Negative: < or = 4 IUnits/mL Indeterminate: 5 - 9 IUnits/mL Positive: > or = 10 IUnits/mL Current interpretive data was last revised on 2017. Blood 07/15/2024 12:4 9 PM BONUS CLERK 07/15/2024 1:11 PM BONUS CLERK Jessie Sherwood MD LAB BLOOD ORDERABLES Final Result Performing Organization Address [facility] de Phone Number [facility] Department [place] [address] * eGFR (07/15/2024 12:49 PM BONUS CLERK) [facility] eGFR >90 >=60 mL/min/1. 73 m2 Comment: [...] reviewed 2021. Blood 07/15/2024 12:4 9 PM BONUS CLERK 07/15/2024 1:15 PM BONUS CLERK Jessie Sherwood MD LAB BLOOD ORDERABLES Final Result [facility] Department [place] [address] * Differential, auto (07/15/2024 12:49 PM BONUS CLERK) Neutrophil abs 3.8 1.5 - 6.5 K/cumm Imm gran abs 0.0 0.0 - 0.1 K/cumm [facility] Lymphocyte abs 1.9 0.8 - 3.3 K/cumm [facility] Monocyte abs 0.6 0.2 - 0.8 K/cumm [facility] Eosinophil abs 0.2 0.0 - 0.5 K/cumm [facility] Basophil abs 0.1 0.0 - 0.1 K/cumm [facility] Neutrophil pct 58.2 % [facility] Comment: Interpretive Data Percent cell count reference ranges are not reported, since discordance with absolute values may lead to misinterpretation of CBC data. Current Interpretive Data was last revised on 2017. Imm gran pct 0.5 % [facility] Comment: Interpretive Data Percent cell count reference ranges are not reported, since discordance with absolute values may lead to misinterpretation of CBC data. Current Interpretive Data was last revised on 2017. Lymphocyte pct 28.5 % [facility] Comment: Interpretive Data Percent cell count reference ranges are not reported, since discordance with absolute values may lead to misinterpretation of CBC data. Current Interpretive Data was last revised on 2017. Monocyte pct 8.6 % [facility] Comment: Interpretive Data Percent cell count reference ranges are not reported, since discordance with absolute values may lead to misinterpretation of CBC data. Current Interpretive Data was last revised on 2017. Eosinophil pct 3.4 % [facility] Comment: Interpretive Data Percent cell count reference ranges are not reported, since discordance with absolute values may lead to misinterpretation of CBC data. Current Interpretive Data was last revised on 2017. Basophil pct 0.8 % [facility] Comment: Interpretive Data Percent cell count reference ranges are not reported, since discordance with absolute values may lead to misinterpretation of CBC data. Current Interpretive Data was last revised on 2017. Blood 07/15/2024 12:4 9 PM BONUS CLERK 07/15/2024 1:11 PM BONUS CLERK eJssie Sherwood MD LAB BLOOD ORDERABLES Final Result Performing Organization Address [facility]/ZIP Co de Phone Number [facility] [place] [address] * C4 complement (07/15/2024 12:49 PM BONUS CLERK) Complement C4 16.1 10.0 - 40.0 mg/dL Blood 07/15/2024 12:4 9 PM BONUS CLERK 07/15/2024 1:11 PM BONUS CLERK Jessie Sherwood MD LAB BLOOD ORDERABLES Final Result Performing Organization Address [facility]/ZIP Co de Phone Number [facility] Department [place] [address] * FUAD ab eval w/reflex (07/15/2024 12:49 PM BONUS CLERK) FUAD ab Negative Negative Comment: Interpretive Data Positive Screens will be reflexed to specific testing for Antibodies against the following antigens: Aditi-1 Ab, PARTS INTERPRETER Ab, Scl-70 Ab, Dickinson Ab, SS-A/Ro Ab, and SS- B/La Ab. Further testing for dsDNA, Centromere, or Ribosomal P antibodies is suggested in patient with a positive screen and negative specific antibodies. Current interpretive data was last revised on 2023. Blood 07/15/2024 12:4 9 PM BONUS CLERK 07/15/2024 1:11 PM BONUS CLERK us Jessie Sherwood MD LAB BLOOD ORDERABLES Final Result [facility] Department [place] [address] * Cardiolipin antibody, IgG (07/15/2024 12:49 PM BONUS CLERK) Cardiolipin, IgG <1.6 <=19.9 GPL U/mL Comment: [...] EMELYN. These results were obtained with the [employer] 2200 System. Cardiolipin IgG values obtained with different manufacturers' assay methods may not be used interchangeably. Current interpretive data was last revised on 2017. Blood 07/15/2024 12:4 9 PM BONUS CLERK 07/15/2024 1:12 PM BONUS CLERK Result [facility] Jessie Sherwood MD LAB BLOOD ORDERABLES Final Result Performing Organization Address [facility] Co de Phone Number ARAVIND [facility] [place] [address] * Beta 2 glycoprotein IgM Ab (07/15/2024 12:49 PM BONUS CLERK) Pathologist [facility] [place] Beta-2 glycoprotein I, IgM 6.4 <=19.9 units/mL [...] factor. ??These results were obtained with the [employer] 2200 System. Beta-2 GP1 IgM values obtained with different manufacturers' assay methods may not be used interchangeably. Current interpretive data was last revised on 2017. Blood 07/15/2024 12:4 9 PM BONUS CLERK 07/15/2024 1:12 PM BONUS CLERK Jessie Sherwood MD LAB BLOOD ORDERABLES Final Result Performing Organization Address City/[facility]/ZIP Co de Phone Number ARAVIND [facility] [place] [address] * Beta 2 glycoprotein IgG Ab (07/15/2024 12:49 PM BONUS CLERK) [facility] Beta-2 glycoprotein I, IgG <1.4 <=19.9 units/mL Comment: Interpretive Data Negative: <20 U/mL Positive: > or = 20 U/mL ? Beta-2 glycoprotein 1 (Beta-2 GP1) antibodies are a more specific marker of thrombotic risk. It is expected that some samples will be ACL positive and Beta- 2 [id number]. In order to improve specificity, the International Congress on Antiphospholipid Antibodies recommends Beta-2 GP1 antibodies of IgG or IgM isotype ??(> the 99th percentile), obtained twice, at least 12 weeks apart, to support a diagnosis of antiphospholipid syndrome. The cutoff for this assay was developed from data based on the 99th percentile. These results were obtained with the [employer]. Beta 2GP1 IgG values obtained with different manufacturers' assay methods may not be used interchangeably. Current interpretive data was last revised on 2017. Blood 07/15/2024 12:4 9 PM BONUS CLERK 07/15/2024 1:12 PM BONUS CLERK us Jessie Sherwood MD LAB BLOOD ORDERABLES Final Result [facility] Department [place] [address] * (ABNORMAL) CBC with auto differential (07/15/2024 12:49 PM BONUS CLERK) [facility] WBC 6.5 3.8 - 9.9 K/cumm Hgb 11.5(L) 11.9 - 15.5 g/dL [facility] Hct 36.5 35.6 - 45.5 % [facility] Plt 292 150 - 400 K/cumm [facility] MPV 9.3 9.1 - 12.3 fL [facility] RBC 3.99 3.90 - 5.20 M/cumm [facility] MCV 91.5 81.3 - 96.4 fL [facility] MCH 28.8 27.1 - 33.3 pg [facility] MCHC 31.5(L) 32.3 - 35.7 g/dL [facility] RDW CV 14.3 11.1 - 14.9 % [facility] RDW SD 48.4(H) 35.7 - 48.1 fL [facility] NRBC abs 0.00 0.00 - 0.01 K/cumm [facility] Blood 07/15/2024 12:4 9 PM BONUS CLERK 07/15/2024 1:11 PM BONUS CLERK Jessie Sherwood MD LAB BLOOD ORDERABLES Final Result Performing Organization Address [facility] de Phone Number [facility] [place] [address] * Hepatitis C antibody Blood (07/15/2024 12:49 PM BONUS CLERK) Hep C Ab Nonreactive Nonreactive Comment:Antibodies to HCV no t detected. Does NOT exclude the possibility of recent exposure to HCV. Current interpretive data was last revised on 22 Blood 07/15/2024 12:4 9 PM BONUS CLERK 07/15/2024 1:25 PM BONUS CLERK Jessie Sherwood MD LAB MICROBIOLOGY - GENERAL ORDERABLES Final Result Performing Organization Address [facility] de Phone Number [facility] [place] [address] * Cyclic citrul peptide antibody, IgG (07/15/2024 12:49 PM BONUS CLERK) CCP Ab <0.5 <=2.9 units/mL Comment: Interpretive data Negative: <3 units/mL Positive: > or equal to 3 units/mL Current interpretive data was last revised on 2016. Blood 07/15/2024 12:4 9 PM BONUS CLERK 07/15/2024 1:11 PM BONUS CLERK Jessie Sherwood MD LAB BLOOD ORDERABLES Final Result Performing Organization Address [facility]/[place]/[facility] Co de Phone Number [facility] [place] [address] * Cryoglobulin, Serum and Plasma (07/15/2024 12:49 PM BONUS CLERK) Pathologist [facility], [place] Cryoglobulin, quant See Footnote Negative [facility] Comment: Negative. This test is negative at 24 hours. All samples are held and reviewed again at 7 days. If delayed precipitation occurs after 7 days, Immunofixation will be performed and an additional report will follow. Cryofibrinogen Negative Negative [facility] Comment: Test Performed by: [facility] [address] [place] [address] Legal Aide: Jacqueline Dinero Ph.D.; CLIA# [id number] Blood 07/15/2024 12:4 9 PM BONUS CLERK 07/15/2024 2:16 PM BONUS CLERK Jessie Sherwood MD LAB BLOOD ORDERABLES Final Result Performing Organization Address City/[facility] Co de Phone Number [facility] [place] [address] [place] [facility] * Aldolase (07/15/2024 12:49 PM BONUS CLERK) [facility] Aldolase 6.6 0.1 - 8.0 Units/L Blood 07/15/2024 12:4 9 PM BONUS CLERK 07/15/2024 1:11 PM BONUS CLERK Jessie Sherwood MD LAB BLOOD ORDERABLES Final Result Performing Organization Address City/[facility] Co de Phone Number [facility] [place] [address] * Cardiolipin antibody, IgM (07/15/2024 12:49 PM BONUS CLERK) [facility] Cardiolipin, IgM 8.0 <=19.9 MPL U/mL Comment: [...] antibodies. ??These results were obtained with the [employer] 2200 System. Cardiolipin IgM values obtained with different manufacturers' assay methods may not be used interchangeably. Current interpretive data was last revised on 2017. Blood 07/15/2024 12:4 9 PM BONUS CLERK 07/15/2024 1:12 PM BONUS CLERK Jessie Sherwood MD LAB BLOOD ORDERABLES Final Result [facility] [place] [address] * Hepatitis B surface antibody (immune status) Blood (07/15/2024 12:49 PM BONUS CLERK) HBsAb (immune status) Reactive Comment:This result is consi stent with immunity to Hepatitis B Virus when used in the setting of routine screening. Current interpretive data was last revised on 22 HBsAb (immune status) index 219.0 mIUnits/m L [facility] Blood 07/15/2024 12:4 9 PM BONUS CLERK 07/15/2024 1:25 PM BONUS CLERK Jessie Sherwood MD LAB MICROBIOLOGY - GENERAL ORDERABLES [place] [address] * Hepatitis B Surface Antigen Blood (07/15/2024 12:49 PM BONUS CLERK) [facility] HepBsAg Nonreactive Nonreactive Blood 07/15/2024 12:4 9 PM BONUS CLERK 07/15/2024 1:25 PM BONUS CLERK Jessie Sherwood MD LAB MICROBIOLOGY - GENERAL ORDERABLES Final Result Performing Organization Address [facility] Co de Phone Number [facility] [place] [address] * Erythrocyte sedimentation rate (07/15/2024 12:49 PM BONUS CLERK) [facility] Erythrocyte sedimentation rate 6 1 - 20 mm/hr Blood 07/15/2024 12:4 9 PM BONUS CLERK 07/15/2024 1:11 PM BONUS CLERK Jessie Sherwood MD LAB BLOOD ORDERABLES Final Result Performing Organization Address City/[facility] Co de Phone Number [facility] [place] [address] * Rheumatoid factor (07/15/2024 12:49 PM BONUS CLERK) [facility] Rheumatoid factor, quant 10.0 0.1 - 15.0 IUnits/mL Blood 07/15/2024 12:4 9 PM BONUS CLERK 07/15/2024 1:11 PM BONUS CLERK Jessie Sherwood MD LAB BLOOD ORDERABLES Final Result Performing Organization Address City/[facility] Co de Phone Number [facility] [place] [address] * C3 complement (07/15/2024 12:49 PM BONUS CLERK) [facility] Complement C3 129.0 90.0 - 180.0 mg/dL Blood 07/15/2024 12:4 9 PM BONUS CLERK 07/15/2024 1:11 PM BONUS CLERK Jessie Sherwood MD LAB BLOOD ORDERABLES Final Result Performing Organization Address City/[facility]/ZIP Co de Phone Number [facility] Department [place] [address] * Creatine kinase (CK), total (07/15/2024 12:49 PM BONUS CLERK) [facility] CK 135 30 - 200 Units/L Blood 07/15/2024 12:4 9 PM BONUS CLERK 07/15/2024 1:11 PM BONUS CLERK Jessie Sherwood MD LAB BLOOD ORDERABLES Final Result Performing Organization Address [facility] de Phone Number [facility] Department [place] [address] * (ABNORMAL) Comprehensive metabolic panel (07/15/2024 12:49 PM BONUS CLERK) [facility] Sodium 142 135 - 145 mmol/L Potassium, pl 3.0(L) 3.3 - 4.9 mmol/L [facility] Chloride 103 97 - 110 mmol/L [facility] CO2 28 22 - 32 mmol/L [facility] Anion gap 11 2 - 15 mmol/L [facility] BUN 8 6 - 25 mg/dL [facility] Creatinine 0.76 0.60 - 1.10 mg/dL [facility] Glucose 85 70 - 199 mg/dL [facility] Comment: Interpretive Data Fasting glucose >/= 126 [...] 2022. Calcium 9.1 8.5 - 10.3 mg/dL [facility] Bilirubin, total 0.4 0.1 - 1.2 mg/dL [facility] Protein, pl 6.2(L) 6.5 - 8.5 g/dL [facility] Albumin 4.3 3.5 - 5.0 g/dL [facility] Alk phos 87 40 - 130 Units/L [facility] ALT 19 7 - 45 Units/L [facility] AST 20 10 - 45 Units/L [facility] Blood 07/15/2024 12:4 9 PM BONUS CLERK 07/15/2024 1:11 PM BONUS CLERK us Jessie Sherwood MD LAB BLOOD ORDERABLES Final Result Performing Organization Address City/State/[facility] Co de Phone Number [facility] Department [place] [address] from Last [address] [place] [address] [place] [address] [facility] Care Teams Oracle Database Developer Relationship Specialty Start Date End Date Keven Gonzalez DO [address] [place] [address] PCP - General Family Medicine 05/29/24 Kendrick Chacon MD Emergency Medicine 04/27/20 Edy Yadav MD [address] [facility] [place] [address] Consulting Physician Pain Management 04/28/21
--- OUTSIDE RECORDS SUMMARY | 2024-08-18 21:35 | XMS_ITS | Encounter Summary ---
Author Organization [facility] Address [address] [place] [address] Phone Care Team Providers Care Funeral Director/Embalmer Name Role Phone Kendrick Chacon MD Primary Care Provider [phone] Kendrick Chacon MD Unavailable Edy Yadav MD Unavailable Encounter Details Date Type Department Care Team (Late st Contact Info) Description 03/20/2024 Telephone [facility] Oncology [address] [facility] Advanced Medicine 7th Floor, [place] [address] Ana Paula Lucio Social History Tobacco Use Types Packs/Day Years [...] Industry Job Start Date Job End Date Te[employer] Not on file Not on file Not on file documented as of this encounter Miscellaneous Notes * Telephone Encounter - Adri Esposito, [place] - 03/20/2024 4:28 PM CDT Spoke with pt. We do not have records. Patient will have the referring office fax records and call back for scheduling.VF * Telephone Encounter - Ana Paula Lucio - 03/20/2024 11:25 AM CDT FATIMAH, SHE IS CALLING TO GET AN APPT WITH DR CALERO FOR HER DX PULMONARY EMBOLISM. PLEASE CALL TO DISCUSS APPT. THANKS! documented in this encounter Plan of Treatment Not on file documented as of this encounter Visit Diagnoses Not on filedocumented in this encounter Care Teams Funeral Director/Embalmer Relationship Specialty Start Date End Date Kendrick Chacon MD PCP - General 04/27/20 04/30/24 Kendrick Chacon MD Emergency Medicine 04/27/20 Edy Yadav MD [address] [place] [address] Consulting Physician Pain Management 04/28/21 documented as of this encounter
--- OUTSIDE RECORDS SUMMARY | 2024-08-18 21:35 | XMS_ITS | Encounter Summary ---
Author Organization [facility] Address [address] [place] [address] Care Team Providers Care Av Specialist Name Role Phone Unavailable Primary Care Provider Unavailabl e Encounter Details Date Type Department Care Team (Late st Contact Info) Description 01/03/2017 Orders Only [facility] MATERNAL/ EVALUATION UNIT [address] [facility] [facility] [place] [address] Scarlet Baumann MD [address] [place] [address] Social History Tobacco Use Types Packs/Day Years [...]
--- OUTSIDE RECORDS SUMMARY | 2024-08-18 21:35 | XMS_ITS | Encounter Summary ---
Author Organization [facility] Address [address] [facility] [place] [address] Care Team Providers Care Sole Dyer Name Role Phone Kendrick Chacon MD Primary Care Provider [phone] Reason for Visit * Reason Comments Refill Request Encounter Details Date Type Department Care Team (Late st Contact Info) Description 08/13/2021 Refill [facility] Endocrinology, Diabetes and Metabolism [address] [place] [address], [facility] [place] [id number] Froylan Valle MD [address] [place] [address] [place], [place] [id number] Refill Request Social History Tobacco Use Types [...] encounter Miscellaneous Notes * Telephone Encounter - Antoinette Paredes LPN - 08/14/2021 10:32 AM CST Refill Request Anat Phelan KENISHA: 07-20-21Jul due: 3 month NOV scheduled: 10/20/2021 LRF: 04-18-21 Qty Disp: 30 # of refills: 3 Allergies: No Known Allergies Pended Medication Order: Requested Prescriptions Pending Prescriptions Disp Refills ??? predniSONE (DELTASONE) 5 MG tablet [Pharmacy Med Name: PREDNISONE 5MG TABLETS] 30 tablet 3 Sig: TAKE 1 TABLET BY MOUTH EVERY DAY CART MAKER documented in this encounter Plan of Treatment Not on file documented as of this encounter Visit Diagnoses Diagnosis Adrenal insufficiency (HCC) Glucocorticoid deficiency documented in this encounter Care Teams Sole Dyer Relationship Specialty Start Date End Date Kendrick Chacon MD [address] [place] [address] PCP - General 04/03/21 documented as of this encounter
--- OUTSIDE RECORDS SUMMARY | 2024-08-18 21:35 | XMS_ITS | Encounter Summary ---
Author Organization [facility] Address [address] [place] [address] Care Team Providers Care Piper Helper Name Role Phone Unavailable Primary Care Provider Unavailabl e Reason for Visit * Reason Comments FAD NST * Evaluate & Treat (Routine) [...] trimester, not applicable or unspecified (HCC) Procedures FL FULL ROUT OBSTE CARE,VAGINAL Hitesh Benito MD RETIRED [facility] [address] [place] [address] Referral ID Status Reason Start Date Expiration Date Visits Re quested Visits Authorized [id number] Closed 10/29/2016 05/17/2017 16 Encounter Details Date Type Department Care Team (Latest Contact Info) Description 02/15/2017 7:55 AM CDT - 02/15/2017 11:59 PM CDT Hospital Encounter [facility] Maternal & Care [address] [place] [phone] Janeth Gonzalez MD [address] [address] Discharge Disposition: Home or Self Care Social [...] Sign Reading Time Taken Comments Blood Pressure 135/70 02/15/2017 8:14 AM CDT Pulse 76 02/15/2017 8:14 AM CDT Temperature - - Respiratory Rate [...] this encounter Progress Notes * Nazanin Pizano APRN-BUSINESS ANALYST INTERN - 02/15/2017 8:17 AM CDT Pt. Presents for twice weekly testing.. Denies any LOF, VB, CTX''s or abdominal pain. Pt verbalizesfeeling movement. Nazanin Pizano RN 02/15/2017 8:17 AM documented in this encounter Procedure Notes * Janeth Gonzalez MD - 02/15/2017 9:04 AM CDTProcedure(s): NONSTRESS TEST Non-Stress Test (NST) Anat Phelan [id number] Indications: suspected FGR (AC 4th %ile, EFW 5th %ile on 01/30) with brain sparing , AMA (age 41) BP 135/70 Pulse 76 Interpretation: FHR baseline:125 beats/minute, minimal to moderate variability, reactive, no decels Contractions: none Recommendations: Close maternal movement monitoring and twice weekly NSTs while awaiting delivery around 37 weeks (for brain sparing in the setting of suspected FGR). If the decision is made not to proceed with delivery, repeat Dopplers and AFV assessment in ~5 days. Janeth Gonzalez MD [facility] documented in this encounter Plan of Treatment Scheduled Orders Name Type Priority Associated Diagnoses Orde r Schedule BIOPHYSICAL PROFILE W NST MATRNL MED Routine Small for gestational age (HCC) Supervision of high-risk of elderly multigravida (HCC) 1 Occurrences starting 02/15/2017 until 02/15/2017 documented as of this encounter Visit Diagnoses Diagnosis Small for gestational age (HCC) [id number] without mention of malnutrition, unspecified (weight) Supervision of high-risk of elderly multigravida (HCC) Supervision of high-risk of elderly multigravida AMA (advanced maternal age) multigravida 35+, unspecified trimester (HCC) documented in this encounter
--- OUTSIDE RECORDS SUMMARY | 2024-08-18 21:35 | XMS_ITS | Encounter Summary ---
Author Organization [facility] Address [address] [facility] [place] [address] Care Team Providers Care Schedule Supervisor Name Role Phone Unavailable Primary Care Provider Unavailabl e Encounter Details Date Type Department Care Team (Latest Contact Info) Description 02/06/2017 7:47 AM CDT - 02/06/2017 11:59 PM T Hospital Encounter [facility] Maternal & Care [address] [place], [place] [id number] Alex Osborn MD [address] [address] Discharge Disposition: Home or Self Care Social [...] as of this encounter Visit Diagnoses Diagnosis Abnormal ultrasonic finding on screening of mother Abnormal findings on screening AMA (advanced maternal age) multigravida 35+, third trimester (HCC) History of delivery, currently in third [facility] documented in this encounter
--- OUTSIDE RECORDS SUMMARY | 2024-08-18 21:35 | XMS_ITS | Clinical Summary ---
Author Organization [facility] Address [address] [place] [address] Care Team Providers Care Starch Crab Name Role Phone Kendrick Chacon MD Unavailable Edy Yadav MD Unavailable Keven Gonzalez DO Primary Care Provider Allergies Active Allergy Reactions Criticality Noted Date [...] demise 01/30/2017 Encounter for anatomic survey 01/29/2017 Encounters Date Type Department Care Team Description 07/22/2024 Documentation [facility] Rheumatology [address] [facility] Medicine [facility] [place] [address] Jessie Sherwood MD 07/22/2024 Telephone [facility] Rheumatology [address] [place] [address] 5th [place] [address] Jessie Sherwood MD 07/20/2024 1:00 PM [employer]ENT Ancillary Procedure [facility] Imaging at [address] [address] Effusion of joint, unspecified location; Arthralgia, unspecified joint 07/20/2024 12:45 PM [employer] LAW ENFORCEMENT AGENT Ancillary Procedure [facility] Imaging at [address] [address] Effusion of joint, unspecified location; Arthralgia, unspecified joint 07/20/2024 12:30 PM [employer] LAW ENFORCEMENT AGENT Ancillary Procedure [facility] Imaging at [address] [address] Effusion of joint, unspecified location; Arthralgia, unspecified joint 07/15/2024 3:10 PM ALCOHOL LAW ENFORCEMENT AGENT Lab [facility] ([facility]) [address] [place] [id number] Effusion of joint, unspecified location; Arthralgia, unspecified joint 07/15/2024 10:40 AM [employer] LAW ENFORCEMENT AGENT Office Visit [facility] Rheumatology [address] [place] [address] 5th [place] [address] Jessie Sherwood MD Arthralgia, unspecified joint (Primary Dx); Effusion of joint, unspecified location from Last 3 Months Surgical History Surgery Date Site/Laterality Comments SECTION CHOLECYSTECTOMY TONSILLECTOMY COLONOSCOPY COLONOSCOPY W/ ENDOSCOPIC US CARPAL TUNNEL RELEASE 02/15/2021 Left CARPAL TUNNEL RELEASE 10/11/2020 Right ANAL FISSURECTOMY 09/02/2020 Medical History Medical History Date Comments Depression Asthma GERD (gastroesophageal reflux disease) Gastric reflux Osteoarthritis of left AC (acromioclavicular) claudia int DDD (degenerative disc disease), cervical DDD (degenerative disc disease), lumbar Anterolisthesis L4 on L5, grade 1 Lumbar spondylosis Lumbar facet arthropathy 03/15/2021 L3-L4, L4-L5, L5-S1 Family History Medical History Relation Name Comments Diabetes Father Hypertension Father Arthritis Mother Hypertension Mother Relation Name Status Comments Father Mother Social History Tobacco Use Types Packs/Day Years [...] 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 on file Not on file Not on file Obstetrics History Last Filed Vital Signs Vital Sign Reading Time Taken Comments Blood Pressure 135/81 07/15/2024 10:44 AM [employer] LAW ENFORCEMENT AGENT Pulse 70 07/15/2024 10:44 AM [employer] LAW ENFORCEMENT AGENT Temperature 36.7 ??C (98 ??F) 07/15/2024 10:44 AM [employer] LAW ENFORCEMENT AGENT Respiratory Rate 18 05/10/2021 3:55 PM CDT Oxygen Saturation 97% 05/10/2021 3:55 PM CDT Inhaled Oxygen Concentration - - Weight 88 kg (194 lb) 07/15/2024 10:44 AM [employer]COHOL LAW ENFORCEMENT AGENT Height 165.1 cm (5' 5 ) 07/15/2024 10:44 AM [employer]COH[employer] LAW ENFORCEMENT AGENT Body Mass Index 32.28 07/15/2024 10:44 AM ALCOHOL LAW ENFORCEMENT AGENT Plan of Treatment Health Maintenance Due Date Last Done Comments Breast Cancer Screening-Mammogram 1976 Cervical Cancer Screening 1976 Colon Cancer Screening-Colonoscopy 1976 Depression Screening 1976 Pneumococcal vaccine <65 (1 of 2 - PCV) 1982 Regular Well Visit/Exam 18-64 1994 Zoster Vaccine (1 of 2) 1995 Influenza Vaccine (#1) 2024 DTaP/Tdap/Td Vaccine (3 - Td or Tdap) 02/22/2027 02/22/2017, 07/18/2015, 11/12/2005 Hepatitis C Screening Completed 07/15/2024 Procedures Procedure Name Priority Date/Time Associated Diagnosis Comments XR CHEST PA LATERAL 2 VIEWS Schedule Routine, Read Routine (OP Routine) 07/20/2024 1:14 PM [employer] ENFORCEMENT AGENT Effusion of joint, unspecified location Arthralgia, unspecified joint XR HAND BILATERAL 3 OR MORE VIEWS OF EACH Schedule Routine, Read Routine (OP Routine) 07/20/2024 1:14 PM [employer] LAW ENFORCEMENT AGENT Effusion of joint, unspecified location Arthralgia, unspecified joint XR WRIST BILATERAL 3 OR MORE VIEWS Schedule Routine, Read Routine (OP Routine) 07/20/2024 1:14 PM [employer] LAW ENFORCEMENT AGENT Effusion of joint, unspecified location Arthralgia, unspecified joint BETA 2 GLYCOPROTEIN IGM AB Routine 07/15/2024 12:49 PM [employer] LAW ENFORCEMENT AGENT Effusion of joint, unspecified location Arthralgia, unspecified joint BETA 2 GLYCOPROTEIN IGG AB Routine 07/15/2024 12:49 PM [employer] LAW ENFORCEMENT AGENT Effusion of joint, unspecified location Arthralgia, unspecified joint EGFR Routine 07/15/2024 12:49 PM AL[employer] LAW ENFORCEMENT AGENT Effusion of joint, unspecified location Arthralgia, unspecified joint DIFFERENTIAL AUTO Routine 07/15/2024 12: 49 PM [employer] LAW ENFORCEMENT AGENT Effusion of joint, unspecified location Arthralgia, unspecified joint ALDOLASE Routine 07/15/2024 12:49 PM ALCOH[employer] LAW ENFORCEMENT AGENT Effusion of joint, unspecified location Arthralgia, unspecified joint VASQUEZ QUALITATIVE WITH REFLEX TO VASQUEZ QUANTITATIVE Routine 07/15/2024 12:49 PM ALCOHOL LAW ENFORCEMENT AGENT Effusion of joint, unspecified location Arthralgia, unspecified joint ANTI-DOUBLE STRANDED DNA ANTIBODIES Routine 07/15/2024 12:49 PM [employer]COH[employer] LAW ENFORCEMENT AGENT Effusion of joint, unspecified location Arthralgia, unspecified joint C3 COMPLEMENT Routine 07/15/2024 12:49 PM ALCOH[employer] LAW ENFORCEMENT AGENT Effusion of joint, unspecified location Arthralgia, unspecified joint C4 COMPLEMENT Routine 07/15/2024 12:49 PM ALCOHOL LAW ENFORCEMENT AGENT Effusion of joint, unspecified location Arthralgia, unspecified joint CARDIOLIPIN ANTIBODY, IGG Routine 07/15/2024 12:49 PM ALCOHOL LAW ENFORCEMENT AGENT Effusion of joint, unspecified location Arthralgia, unspecified joint CARDIOLIPIN ANTIBODY, IGM Routine 07/15/2024 12:49 PM ALCOHOL LAW ENFORCEMENT AGENT Effusion of joint, unspecified location Arthralgia, unspecified joint CBC WITH AUTO DIFFERENTIAL Routine 07/15/2024 12:49 PM ALCOHOL LAW ENFORCEMENT AGENT Effusion of joint, unspecified location Arthralgia, unspecified joint COMPREHENSIVE METABOLIC PANEL Routine 07/15/2024 12:49 PM ALCOHOL LAW ENFORCEMENT AGENT Effusion of joint, unspecified location Arthralgia, unspecified joint CREATINE KINASE (CK), TOTAL Routine 07/15/2024 12:49 PM ALCOH[employer] LAW ENFORCEMENT AGENT Effusion of joint, unspecified location Arthralgia, unspecified joint CRYOGLOBULIN, SERUM AND PLASMA Routine 07/15/2024 12:49 PM ALCOHOL LAW ENFORCEMENT AGENT Effusion of joint, unspecified location Arthralgia, unspecified joint CYCLIC CITRUL PEPTIDE ANTIBODY, IGG Routine 07/15/2024 12:49 PM ALCOHOL LAW ENFORCEMENT AGENT Effusion of joint, unspecified location Arthralgia, unspecified joint FUAD ANTIBODY EVALUATION WITH REFLEX Routine 07/15/2024 12:49 PM ALCOHOL LAW ENFORCEMENT AGENT Effusion of joint, unspecified location Arthralgia, unspecified joint ERYTHROCYTE SEDIMENTATION RATE Routine 07/15/2024 12:49 PM ALCOHOL LAW ENFORCEMENT AGENT Effusion of joint, unspecified location Arthralgia, unspecified joint MYOMARKER PANEL 3 Routine 07/15/2024 12: 49 PM [employer] LAW ENFORCEMENT AGENT Effusion of joint, unspecified location Arthralgia, unspecified joint RHEUMATOID FACTOR Routine 07/15/2024 12: 49 PM [employer]COHOL LAW ENFORCEMENT AGENT Effusion of joint, unspecified location Arthralgia, unspecified joint HEPATITIS B SURFACE ANTIBODY (IMMUNE STATUS) Routine 07/15/2024 12:49 PM ALCOHOL LAW ENFORCEMENT AGENT Effusion of joint, unspecified location Arthralgia, unspecified joint HEPATITIS B SURFACE ANTIGEN Routine 07/15/2024 12:49 PM ALCOHOL LAW ENFORCEMENT AGENT Effusion of joint, unspecified location Arthralgia, unspecified joint HEPATITIS C ANTIBODY Routine 07/15/2024 12:49 PM ALCOH[employer] LAW ENFORCEMENT AGENT Effusion of joint, unspecified location Arthralgia, unspecified joint from Last 3 Months Results * X-ray chest 2 views (07/20/2024 1:14 PM ALCOHOL LAW ENFORCEMENT AGENT) Anatomical Region Laterality Modality Body, Chest N/A Digital Radiogra phy 07/22/2024 9:24 PM [employer] LAW ENFORCEMENT AGENT Narrative 07/22/2024 9:26 PM [employer]COHOL LAW ENFORCEMENT AGENT EXAM DESCRIPTION: XR CHEST PA LATERAL 2 [...] D: ??07/22/2024 9:26 PM T: Report ID: [id number] Reading Location: ??[id number] Procedure Note Eh Gill MD - 07/22/2024 [...] signed by Eh BELL T: Report ID: [id number] Reading Location: [id number] Jessie Sherwood MD IMG XR PROCEDURES Final Re sult * XR Wrist Bilateral 3 or More Views (07/20/2024 1:14 PM [employer]COHOL LAW ENFORCEMENT AGENT) Anatomical Region Laterality Modality Upper Extremities, Wrist Digital Radiography 07/21/2024 7:09 PM [employer] LAW ENFORCEMENT AGENT Narrative 07/21/2024 7:48 PM [employer]COHOL LAW ENFORCEMENT AGENT EXAM DESCRIPTION: XR WRIST BILATERAL 3 OR [...] D: ??07/21/2024 7:48 PM T: Report ID: [id number] Reading Location: ??[id number] Procedure Note Eh Chu MD - 07/21/2024 [...] by Eh Chu M.D. T: Report ID: [id number] Reading Location: [place] [address] Jessie Sherwood MD IMG XR PROCEDURES Final Re sult * XR Hand Bilateral 3 or More Views of Each (07/20/2024 1:14 PM ALCOHOL LAW ENFORCEMENT AGENT) Anatomical Region Laterality Modality Upper Extremities, Hand Digital Radiography 07/21/2024 7:09 PM ALCOH[employer] LAW ENFORCEMENT AGENT Narrative 07/21/2024 7:48 PM [employer]COHOL LAW ENFORCEMENT AGENT EXAM DESCRIPTION: XR WRIST BILATERAL 3 OR [...] D: ??07/21/2024 7:48 PM T: Report ID: [id number] Reading Location: ??[id number] Procedure Note Eh Chu MD - 07/21/2024 [...] by Eh Chu M.D. T: Report ID: [id number] Reading Location: [place] [address] us Jessie Sherwood MD IMG XR PROCEDURES Final Re sult * Myomarker panel 3 (07/15/2024 12:49 PM ALCOHOL LAW ENFORCEMENT AGENT) Anti-Claudia-1 ab <20 <20 Units [place] ref [facility] Anti PL-7 ab Negative Negative [facility] Comment: This test was developed and its performance characteristics determined by [facility]. It has not been cleared or approved by the Food and Drug Administration. Anti PL-12 ab Negative Negative [facility] Comment: This test was developed and its performance characteristics determined by [facility]. It has not been cleared or approved by the Food and Drug Administration. Anti EJ ab Negative Negative [facility] Comment: This test was developed and its performance characteristics determined by [facility]. It has not been cleared or approved by the Food and Drug Administration. Anti OJ ab Negative Negative [facility] Comment: This test was developed and its performance characteristics determined by [facility]. It has not been cleared or approved by the Food and Drug Administration. Anti SRP ab Negative Negative [facility] Comment: This test was developed and its performance characteristics determined by [facility]. It has not been cleared or approved by the Food and Drug Administration. Anti Mi-2 ab Negative Negative [facility] Comment: This test was developed and its performance characteristics determined by [facility]. It has not been cleared or approved by the Food and Drug Administration. Polymyositis PM-SCL ab <20 <20 Units [facility] Comment: This test was developed and its performance characteristics determined by [facility]. It has not been cleared or approved by the Food and Drug Administration. Fibrillarin U3 ab Negative Negative [facility] Comment: This test was developed and its performance characteristics determined by [facility]. It has not been cleared or approved by the Food and Drug Administration. ?Interpretation for Anti-Claudia-1, [id number], ?Anti-MDA-5, Anti-NXP-2, Anti-PM/Scl-100, ?Anti-SS-A 52 kD, Anti-U1 NEGATIVE CLEANER: ?Negative: ?<20 ?Weak Positive: ? 20 - 39 ?Moderate Positive: ? 40 - 80 ?Strong Positive: ? >80 ?. Test Performed by: [facility] [address] [place] [address] Anti U2 SN NEGATIVE CLEANER ab Negative Negative [facility] Comment: This test was developed and its performance characteristics determined by [facility]. It has not been cleared or approved by the Food and Drug Administration. Anti U1RNP ab <20 <20 Units [facility] Anti KU ab Negative Negative [facility] Comment: This test was developed and its performance characteristics determined by [facility]. It has not been cleared or approved by the Food and Drug Administration. P155/140 ab <20 <20 Units [facility] Comment: This test was developed and its performance characteristics determined by [facility]. It has not been cleared or approved by the Food and Drug Administration. MDA-5 P140 ab <20 <20 Units [facility] Comment: This test was developed and its performance characteristics determined by [facility]. It has not been cleared or approved by the Food and Drug Administration. NXP-2 P140 ab <20 <20 Units [facility] Comment: This test was developed and its performance characteristics determined by [facility]. It has not been cleared or approved by the Food and Drug Administration. SSA52 KD ab IgG <20 <20 Units [facility] Comment: This test was developed and its performance characteristics determined by [facility]. It has not been cleared or approved by the Food and Drug Administration. Blood 07/15/2024 12:4 9 PM [employer]COH[employer] LAW ENFORCEMENT AGENT 07/15/2024 1:48 PM ALCOHOL LAW ENFORCEMENT AGENT Jessie Sherwood MD LAB BLOOD ORDERABLES Final Result Performing Organization Address [facility] Co de Phone Number [facility] Department [place] [address] [facility] * VASQUEZ ab ql w/rflx to VASQUEZ qn (07/15/2024 12:49 PM ALCOHOL LAW ENFORCEMENT AGENT) VASQUEZ Negative Comment: Interpretive Data Normal range [...] on 2020. Blood 07/15/2024 12:4 9 PM [employer]COH[employer] LAW ENFORCEMENT AGENT 07/15/2024 1:11 PM [employer]COH[employer] LAW ENFORCEMENT AGENT Jessie Sherwood MD LAB BLOOD ORDERABLES Final Result Performing Organization Address [facility]/ZIP Co de Phone Number [facility] Department [place] [address] * Anti-double stranded DNA abs (07/15/2024 12:49 PM ALCOHOL LAW ENFORCEMENT AGENT) dsDNA Ab 2.0 <=4.0 IUnits/mL Comment: Interpretive Data Negative: < or = 4 IUnits/mL Indeterminate: 5 - 9 IUnits/mL Positive: > or = 10 IUnits/mL Current interpretive data was last revised on 2017. Blood 07/15/2024 12:4 9 PM ALCOHOL LAW ENFORCEMENT AGENT 07/15/2024 1:11 PM ALCOHOL LAW ENFORCEMENT AGENT Jessie Sherwood MD LAB BLOOD ORDERABLES Final Result [facility] Department [place] [address] * eGFR (07/15/2024 12:49 PM ALCOHOL LAW ENFORCEMENT AGENT) eGFR >90 >=60 mL/min/1. 73 m2 Comment: [...] reviewed 2021. Blood 07/15/2024 12:4 9 PM [employer]COH[employer] LAW ENFORCEMENT AGENT 07/15/2024 1:15 PM ALCOHOL LAW ENFORCEMENT AGENT us Jessie Sherwood MD LAB BLOOD ORDERABLES Final Result [facility] Department [place] [address] * Differential, auto (07/15/2024 12:49 PM ALCOHOL LAW ENFORCEMENT AGENT) Neutrophil abs 3.8 1.5 - 6.5 K/cumm Imm gran abs 0.0 0.0 - 0.1 K/cumm [facility] Lymphocyte abs 1.9 0.8 - 3.3 K/cumm [facility] Monocyte abs 0.6 0.2 - 0.8 K/cumm [facility] Eosinophil abs 0.2 0.0 - 0.5 K/cumm [facility] Basophil abs 0.1 0.0 - 0.1 K/cumm [facility] Neutrophil pct 58.2 % [facility] Comment: Interpretive Data Percent cell count reference ranges are not reported, since discordance with absolute values may lead to misinterpretation of CBC data. Current Interpretive Data was last revised on 2017. Imm gran pct 0.5 % [facility] Comment: Interpretive Data Percent cell count reference ranges are not reported, since discordance with absolute values may lead to misinterpretation of CBC data. Current Interpretive Data was last revised on 2017. Lymphocyte pct 28.5 % [facility] Comment: Interpretive Data Percent cell count reference ranges are not reported, since discordance with absolute values may lead to misinterpretation of CBC data. Current Interpretive Data was last revised on 2017. Monocyte pct 8.6 % [facility] Comment: Interpretive Data Percent cell count reference ranges are not reported, since discordance with absolute values may lead to misinterpretation of CBC data. Current Interpretive Data was last revised on 2017. Eosinophil pct 3.4 % [facility] Comment: Interpretive Data Percent cell count reference ranges are not reported, since discordance with absolute values may lead to misinterpretation of CBC data. Current Interpretive Data was last revised on 2017. Basophil pct 0.8 % [facility] Comment: Interpretive Data Percent cell count reference ranges are not reported, since discordance with absolute values may lead to misinterpretation of CBC data. Current Interpretive Data was last revised on 2017. Blood 07/15/2024 12:4 9 PM ALCOHOL LAW ENFORCEMENT AGENT 07/15/2024 1:11 PM ALCOHOL LAW ENFORCEMENT AGENT Jessie Sherwood MD LAB BLOOD ORDERABLES Final Result Performing Organization Address [email or web address] de Phone Number [facility] [place] [address] * C4 complement (07/15/2024 12:49 PM ALCOHOL LAW ENFORCEMENT AGENT) Complement C4 16.1 10.0 - 40.0 mg/dL Blood 07/15/2024 12:4 9 PM [employer]COH[employer] LAW ENFORCEMENT AGENT 07/15/2024 1:11 PM ALCOHOL LAW ENFORCEMENT AGENT Jessie Sherwood MD LAB BLOOD ORDERABLES Final Result Performing Organization Address [facility] de Phone Number [facility] [place] [address] * FUAD ab eval w/reflex (07/15/2024 12:49 PM ALCOHOL LAW ENFORCEMENT AGENT) Pathologist [facility] FUAD ab Negative Negative Comment: Interpretive Data Positive Screens will be reflexed to specific testing for Antibodies against the following antigens: Claudia-1 Ab, NEGATIVE CLEANER Ab, Scl-70 Ab, Dickinson Ab, SS-A/Ro Ab, and SS- B/La Ab. Further testing for dsDNA, Centromere, or Ribosomal P antibodies is suggested in patient with a positive screen and negative specific antibodies. Current interpretive data was last revised on 2023. Blood 07/15/2024 12:4 9 PM ALCOHOL LAW ENFORCEMENT AGENT 07/15/2024 1:11 PM ALCOHOL LAW ENFORCEMENT AGENT Jessie Sherwood MD LAB BLOOD ORDERABLES Final Result Performing Organization Address [facility]/State/ZIP Co de Phone Number [facility] Department [place] [address] * Cardiolipin antibody, IgG (07/15/2024 12:49 PM ALCOHOL LAW ENFORCEMENT AGENT) Cardiolipin, IgG <1.6 <=19.9 GPL U/mL Comment: [...] EMELYN. These results were obtained with the [employer] 2200 System. Cardiolipin IgG values obtained with different manufacturers' assay methods may not be used interchangeably. Current interpretive data was last revised on 2017. Blood 07/15/2024 12:4 9 PM ALCOHOL LAW ENFORCEMENT AGENT 07/15/2024 1:12 PM ALCOHOL LAW ENFORCEMENT AGENT Jessie Sherwood MD LAB BLOOD ORDERABLES Final Result [facility] Department [place] [address] * Beta 2 glycoprotein IgM Ab (07/15/2024 12:49 PM ALCOHOL LAW ENFORCEMENT AGENT) Beta-2 glycoprotein I, IgM 6.4 <=19.9 units/mL [...] factor. ??These results were obtained with the [employer] 2200 System. Beta-2 GP1 IgM values obtained with different manufacturers' assay methods may not be used interchangeably. Current interpretive data was last revised on 2017. Blood 07/15/2024 12:4 9 PM ALCOHOL LAW ENFORCEMENT AGENT 07/15/2024 1:12 PM ALCOHOL LAW ENFORCEMENT AGENT Jessie Sherwood MD LAB BLOOD ORDERABLES Final Result [facility] Department [place] [address] * Beta 2 glycoprotein IgG Ab (07/15/2024 12:49 PM ALCOHOL LAW ENFORCEMENT AGENT) [facility] Beta-2 glycoprotein I, IgG <1.4 <=19.9 units/mL Comment: Interpretive Data Negative: <20 U/mL Positive: > or = 20 U/mL ? Beta-2 glycoprotein 1 (Beta-2 GP1) antibodies are a more specific marker of thrombotic risk. It is expected that some samples will be ACL positive and Beta- 2 [id number]. In order to improve specificity, the International Congress on Antiphospholipid Antibodies recommends Beta-2 GP1 antibodies of IgG or IgM isotype ??(> the 99th percentile), obtained twice, at least 12 weeks apart, to support a diagnosis of antiphospholipid syndrome. The cutoff for this assay was developed from data based on the 99th percentile. These results were obtained with the [employer] 2200 System. Beta 2GP1 IgG values obtained with different manufacturers' assay methods may not be used interchangeably. Current interpretive data was last revised on 2017. Blood 07/15/2024 12:4 9 PM ALCOHOL LAW ENFORCEMENT AGENT 07/15/2024 1:12 PM ALCOHOL LAW ENFORCEMENT AGENT Jessie Sherwood MD LAB BLOOD ORDERABLES Final Result Performing Organization Address [facility] Co de Phone Number [facility] Department [place] [address] * (ABNORMAL) CBC with auto differential (07/15/2024 12:49 PM ALCOHOL LAW ENFORCEMENT AGENT) [facility] WBC 6.5 3.8 - 9.9 K/cumm Hgb 11.5(L) 11.9 - 15.5 g/dL [facility] Hct 36.5 35.6 - 45.5 % [facility] Plt 292 150 - 400 K/cumm [facility] MPV 9.3 9.1 - 12.3 fL [facility] RBC 3.99 3.90 - 5.20 M/cumm [facility] MCV 91.5 81.3 - 96.4 fL [facility] MCH 28.8 27.1 - 33.3 pg [facility] MCHC 31.5(L) 32.3 - 35.7 g/dL [facility] RDW CV 14.3 11.1 - 14.9 % [facility] RDW SD 48.4(H) 35.7 - 48.1 fL [facility] NRBC abs 0.00 0.00 - 0.01 K/cumm [facility] Blood 07/15/2024 12:4 9 PM [employer]COH[employer] LAW ENFORCEMENT AGENT 07/15/2024 1:11 PM ALCOHOL LAW ENFORCEMENT AGENT Jessie Sherwood MD LAB BLOOD ORDERABLES Final Result Performing Organization Address [facility] Co de Phone Number [facility] [place] [address] * Hepatitis C antibody Blood (07/15/2024 12:49 PM ALCOHOL LAW ENFORCEMENT AGENT) [facility] Hep C Ab Nonreactive Nonreactive Comment:Antibodies to HCV no t detected. Does NOT exclude the possibility of recent exposure to HCV. Current interpretive data was last revised on 22 Blood 07/15/2024 12:4 9 PM [employer]COHOL LAW ENFORCEMENT AGENT 07/15/2024 1:25 PM ALCOHOL LAW ENFORCEMENT AGENT Jessie Sherwood MD LAB MICROBIOLOGY - GENERAL ORDERABLES Final Result Performing Organization Address [email or web address] de Phone Number [facility] [place] [address] * Cyclic citrul peptide antibody, IgG (07/15/2024 12:49 PM ALCOHOL LAW ENFORCEMENT AGENT) [facility] CCP Ab <0.5 <=2.9 units/mL Comment: Interpretive data Negative: <3 units/mL Positive: > or equal to 3 units/mL Current interpretive data was last revised on 2016. Blood 07/15/2024 12:4 9 PM ALCOHOL LAW ENFORCEMENT AGENT 07/15/2024 1:11 PM ALCOHOL LAW ENFORCEMENT AGENT Jessie Sherwood MD [facility] BLOOD ORDERABLES Final Result Performing Organization Address [email or web address] de Phone Number [facility] Care [place] [address] * Cryoglobulin, Serum and Plasma (07/15/2024 12:49 PM ALCOHOL LAW ENFORCEMENT AGENT) [facility] Cryoglobulin, quant See Footnote Negative [place] ref Lab Comment: Negative. This test is negative at 24 hours. All samples are held and reviewed again at 7 days. If delayed precipitation occurs after 7 days, Immunofixation will be performed and an additional report will follow. Cryofibrinogen Negative Negative [facility] Comment: Test Performed by: [facility] [address] [place] [address] Circuit Board Drafter: Jacqueline Dinero Ph.D.; CLIA# [id number] Blood 07/15/2024 12:4 9 PM ALCOHOL LAW ENFORCEMENT AGENT 07/15/2024 2:16 PM ALCOHOL LAW ENFORCEMENT AGENT Jessie Sherwood MD LAB BLOOD ORDERABLES Final Result Performing Organization Address [facility] Co de Phone Number ARAVIND LOPEZ Karla [facility] [place] [address] [facility] ref [facility] * Aldolase (07/15/2024 12:49 PM ALCOHOL LAW ENFORCEMENT AGENT) Aldolase 6.6 0.1 - 8.0 Units/L Blood 07/15/2024 12:4 9 PM ALCOHOL LAW ENFORCEMENT AGENT 07/15/2024 1:11 PM ALCOHOL LAW ENFORCEMENT AGENT Jessie Sherwood MD LAB BLOOD ORDERABLES Final Result Performing Organization Address [email or web address] de Phone Number ARAVIND [facility] [place] [place] [address] * Cardiolipin antibody, IgM (07/15/2024 12:49 PM ALCOHOL LAW ENFORCEMENT AGENT) Cardiolipin, IgM 8.0 <=19.9 MPL U/mL Comment: [...] antibodies. ??These results were obtained with the [employer] 2200 System. Cardiolipin IgM values obtained with different manufacturers' assay methods may not be used interchangeably. Current interpretive data was last revised on 2017. Blood 07/15/2024 12:4 9 PM ALCOHOL LAW ENFORCEMENT AGENT 07/15/2024 1:12 PM ALCOHOL LAW ENFORCEMENT AGENT us Jessie Sherwood MD LAB BLOOD ORDERABLES Final Result Performing Organization Address [facility] Co de Phone Number [facility] [place] [address] * Hepatitis B surface antibody (immune status) Blood (07/15/2024 12:49 PM ALCOHOL LAW ENFORCEMENT AGENT) Pathologist [facility] HBsAb (immune status) Reactive Comment:This result is consi stent with immunity to Hepatitis B Virus when used in the setting of routine screening. Current interpretive data was last revised on 22 HBsAb (immune status) index 219.0 mIUnits/m L [facility] Blood 07/15/2024 12:4 9 PM ALCOHOL LAW ENFORCEMENT AGENT 07/15/2024 1:25 PM ALCOHOL LAW ENFORCEMENT AGENT us Jessie Sherwood MD LAB MICROBIOLOGY - GENERAL ORDERABLES Final Result Performing Organization Address [facility] [place] [address] * Hepatitis B Surface Antigen Blood (07/15/2024 12:49 PM ALCOHOL LAW ENFORCEMENT AGENT) Pathologist [facility] HepBsAg Nonreactive Nonreactive Blood 07/15/2024 12:4 9 PM ALCOHOL LAW ENFORCEMENT AGENT 07/15/2024 1:25 PM ALCOHOL LAW ENFORCEMENT AGENT us Jessie Sherwood MD LAB MICROBIOLOGY - GENERAL ORDERABLES Final Result Performing Organization Address [facility] Co de Phone Number [facility] [place] [address] * Erythrocyte sedimentation rate (07/15/2024 12:49 PM ALCOHOL LAW ENFORCEMENT AGENT) Pathologist [facility] Erythrocyte sedimentation rate 6 1 - 20 mm/hr Blood 07/15/2024 12:4 9 PM ALCOHOL LAW ENFORCEMENT AGENT 07/15/2024 1:11 PM ALCOHOL LAW ENFORCEMENT AGENT Jessie Sherwood MD LAB BLOOD ORDERABLES Final Result Performing Organization Address [facility] Co de Phone Number [facility] [place] [address] * Rheumatoid factor (07/15/2024 12:49 PM ALCOHOL LAW ENFORCEMENT AGENT) [facility] Rheumatoid factor, quant 10.0 0.1 - 15.0 IUnits/mL Blood 07/15/2024 12:4 9 PM ALCOHOL LAW ENFORCEMENT AGENT 07/15/2024 1:11 PM ALCOHOL LAW ENFORCEMENT AGENT Jessie Sherwood MD LAB BLOOD ORDERABLES Final Result Performing Organization Address [facility] Co de Phone Number [facility] [place] [address] * C3 complement (07/15/2024 12:49 PM ALCOHOL LAW ENFORCEMENT AGENT) [facility] Complement C3 129.0 90.0 - 180.0 mg/dL Blood 07/15/2024 12:4 9 PM ALCOHOL LAW ENFORCEMENT AGENT 07/15/2024 1:11 PM ALCOHOL LAW ENFORCEMENT AGENT Jessie Sherwood MD LAB BLOOD ORDERABLES Final Result Performing Organization Address [facility] Co de Phone Number [facility] [place] [address] * Creatine kinase (CK), total (07/15/2024 12:49 PM ALCOHOL LAW ENFORCEMENT AGENT) [facility] CK 135 30 - 200 Units/L Blood 07/15/2024 12:4 9 PM ALCOHOL LAW ENFORCEMENT AGENT 07/15/2024 1:11 PM ALCOHOL LAW ENFORCEMENT AGENT us Jessie Sherwood MD LAB BLOOD ORDERABLES Final Result [facility] [place] [address] * (ABNORMAL) Comprehensive metabolic panel (07/15/2024 12:49 PM ALCOHOL LAW ENFORCEMENT AGENT) Sodium 142 135 - 145 mmol/L Potassium, pl 3.0(L) 3.3 - 4.9 mmol/L [facility] Chloride 103 97 - 110 mmol/L [facility] CO2 28 22 - 32 mmol/L [facility] Anion gap 11 2 - 15 mmol/L [facility] BUN 8 6 - 25 mg/dL [facility] Creatinine 0.76 0.60 - 1.10 mg/dL [facility] Glucose 85 70 - 199 mg/dL [facility] Comment: Interpretive Data Fasting glucose [...] classification and Diagnosis of Diabetes Diabetes Care 202; 46: S19-S40. Current interpretive data was last revised 2022. Calcium 9.1 8.5 - 10.3 mg/dL [facility] Bilirubin, total 0.4 0.1 - 1.2 mg/dL [facility] Protein, pl 6.2(L) 6.5 - 8.5 g/dL [facility] Albumin 4.3 3.5 - 5.0 g/dL [facility] Alk phos 87 40 - 130 Units/L [facility] ALT 19 7 - 45 Units/L [facility] AST 20 10 - 45 Units/L [facility] Blood 07/15/2024 12:4 9 PM ALCOHOL LAW ENFORCEMENT AGENT 07/15/2024 1:11 PM ALCOHOL LAW ENFORCEMENT AGENT us Jessie Sherwood MD LAB BLOOD ORDERABLES Final Result ARAVIND LOPEZ [facility] [place] [address] from Last 3 Months Insurance garbs [place] [facility] Care Teams Starch Crab Relationship Specialty Start Date End Date Keven Gonzalez DO [address] [place] [address] PCP - General Family Medicine 05/29/24 Kendrick Chacon MD Emergency Medicine 04/27/20 Edy Yadav MD [address] [place] [address] Consulting Physician Pain Management 04/28/21
--- OUTSIDE RECORDS SUMMARY | 2024-08-18 21:35 | XMS_ITS | Encounter Summary ---
Author Organization [facility] Address [address] [place] [address] Care Team Providers Care Public Relations Sales Marketing Name Role Phone Unavailable Primary Care Provider [...] ROUT OBSTE CARE,VAGINAL Hitesh Benito MD RETIRED [facility] [address] [place] [address] Referral ID Status Reason Start Date Expiration Date Visits Re quested Visits Authorized [id number] Closed 10/29/2016 05/17/2017 16 16 Encounter Details Date Type Department Care Team (Latest Contact Info) Description 02/13/2017 7:51 AM CDT - 02/13/2017 11:59 PM CDT Hospital Encounter [facility] Maternal & Care [address] [place] [phone] Alex Osborn MD [address] [address] Andrea Holm MD [address] [facility] [address] [place] [address] Discharge Disposition: Home or Self Care Social [...] Sign Reading Time Taken Comments Blood Pressure 122/56 02/13/2017 8:46 AM CDT Pulse 83 02/13/2017 8:46 AM CDT Temperature - - Respiratory Rate [...] this encounter Progress Notes * Nazanin Pizano, WAYLON-ORCHID TRANSPLANTER - 02/13/2017 8:46 AM CDT Pt. Presents for testing r/t IUGR.. Denies any LOF, VB, CTX''s or abdominal pain. Pt verbalizes feeling movement. Nazanin Pizano RN 02/13/2017 8:47 AM Electronically signed by Nazanin Pizano, QUALITY ANALYST/TECHNICAL WRITER-ORCHID TRANSPLANTER at 02/13/2017 8:47 AM CDT documented in this encounter Plan of Treatment Not on file documented as of this encounter Procedures Procedure Name Priority Date/Time Associated Diagnosis Comments BIOPHYSICAL PROFILE W NST Routine 02/13/2017 7:51 AM CDT Small for gestational age (HCC) Supervision of high-risk of elderly multigravida (HCC) documented in this encounter Results * BIOPHYSICAL PROFILE W NST (02/13/2017 7:51 AM CDT) Anatomical Region Laterality Modality Other 02/13/2017 7:51 AM CDT Narrative 02/13/2017 10:36 AM CDT ? [facility] ? [facility] ?PHONE: ??FAX: ? Pat. Name: ?DANIEL PHELAN. No: ?[id number] Study Date: ?? 02/13/2017 ??7:51am , Age: ? 1975, 41 Pregnancies: ?? 5, Para 2112 Height: ? 65 in Weight: ? 165 lb LMP: ?06/06/2016 GA by LMP: ?36w0d GA by 1st: ?36w0d GA Selected: ??36w0d (From First S) JORGE LUIS: ?03/13/2017 Referring MD: Guevara Sal MD Executive Assistant: ??Sushma Oakes RDMS BMI: ?27.45 Hist/Ind: ? Small Head Circumference on Outside Scan ?History of 33wk Delivery ?Advanced Maternal Yjd-Rwr-Ryge NIPT ?EFW < 10th % Heart Rate: [...] <Electronic Signature> ??02/13/2017 10:35am Montez Gregg MD [facility] ORDERABLES documented in this encounter Visit Diagnoses Diagnosis Small for gestational age (HCC) [id number] without mention of malnutrition, unspecified (weight) Supervision of high-risk of elderly multigravida (HCC) Supervision of high-risk of elderly multigravida documented in this encounter
--- OUTSIDE RECORDS SUMMARY | 2024-08-18 21:36 | XMS_ITS | Encounter Summary ---
Author Organization [facility] Address [address] [address] Care Team Providers Care Senior Bioinformatics Scientist Name Role Phone Kendrick Chacon MD Primary Care Provider [phone] Kendrick Chacon MD Unavailable Reason for Referral * (Routine) - Closed Specialty Diagnoses / Procedures Referred By Contac t Referred To Contact Diagnoses Bilateral shoulder pain, unspecified chronicity Procedures Large Joint (Hip, Knee, Shoulder) Injection: L glenohumeral Thelma Rosa AMBULANCE DRIVER PARAMEDIC [facility] [address] [place] [phone] Phone: tel: fax: [facility] Referral ID Status Reason Start Date Expiration Date Visits Re quested Visits Authorized [id number] Closed 04/27/2020 05/27/2021 1 1 * (Routine) - Closed Specialty Diagnoses / Procedures Referred By Contac t Referred To Contact Diagnoses Bilateral shoulder pain, unspecified chronicity Procedures Large Joint (Hip, Knee, Shoulder) Injection: R glenohumeral Thelma Rosa NP [facility] [address] [place] [phone] Phone: tel: fax: [facility] Referral ID Status Reason Start Date Expiration Date Visits Re quested Visits Authorized [id number] Closed 04/27/2020 05/27/2021 1 1 * (Routine) - Closed Specialty Diagnoses / Procedures Referred By Jessica t Referred To Contact Diagnoses Myalgia of muscle of neck Procedures Trigger Point Injection Thelma Rosa NP [address] [place] [address] [address] [place] [phone] Phone: tel: fax: [facility] Referral ID Status Reason Start Date Expiration Date Visits Re quested Visits Authorized [id number] Closed 04/27/2020 05/27/2021 1 1 * Diagnostic Imaging (Routine) - Closed Specialty Diagnoses / Procedures Referred By Jessica t Referred To Contact Diagnoses Bilateral shoulder pain, unspecified chronicity Procedures XR Shoulder Left 2 or More Views Thelma Rosa NP [address] [place] [address] [address] Phone: tel: fax: [address] [phone] Referral ID Status Reason Start Date Expiration Date Visits Re quested Visits Authorized [id number] Closed 04/27/2020 05/27/2021 1 1 * Diagnostic Imaging (Routine) - Closed Specialty Diagnoses / Procedures Referred By Jessica t Referred To Contact Diagnoses Bilateral shoulder pain, unspecified chronicity Procedures XR Shoulder Right 2 or More Views Thelma Rosa NP [address] [place] [address] [address] Phone: tel: fax: [address] [phone] Referral ID Status Reason Start Date Expiration Date Visits Re quested Visits Authorized [id number] Closed 04/27/2020 05/27/2021 1 1 Reason for Visit * Reason Comments Pain * Consultation (Routine) - Closed Specialty Diagnoses / Procedures Referred By Jessica guillermo Referred To Contact Orthopedic Surgery Diagnoses Neck pain Kendrick Chacon MD Phone: tel: fax: Thelma Rosa, [place] [address] [facility] [address] [place] [address] Phone: tel: fax: Referral ID Status Reason Start Date Expiration Date V isits Requested Visits Authorized [id number] Closed Specialty Services Required 04/11/2020 05/11/2021 1 1 Encounter Details Date Type Department Care Team (Late st Contact Info) Description 04/27/2020 9:30 AM CDT Office Visit [facility] Orthopedics and Sports Medicine [address] [place] [address] [address] [place] [address] Thelma Rosa, AMBULANCE DRIVER PARAMEDIC [facility] [address] [place] [phone] Neck pain, chronic; DDD (degenerative disc disease), cervical; Bilateral shoulder pain, unspecified chronicity; Pain in both upper extremities; Myalgia of muscle of neck Social History Tobacco Use Types Packs/Day Years [...] Industry Job Start Date Job End Date [employer] Not on file Not on file Not on file documented as of this encounter Last Filed Vital Signs Vital Sign Reading Time Taken Comments Blood Pressure - - Pulse - - Temperature - - Respiratory Rate - - Oxygen Saturation - - Inhaled Oxygen Concentration - - Weight 77.1 kg (170 lb) 04/27/2020 9:22 AM CDT Height 165.1 cm (5' 5 ) 04/27/2020 9:22 AM CDT Body Mass Index 28.29 04/27/2020 9:22 AM CDT documented in this encounter Progress Notes * Thelma Rosa, AMBULANCE DRIVER [employer] - 04/27/2020 9:30 AM CDTAssociated Order(s): Large Joint (Hip, Knee, Shoulder) Injection: L glenohumeral; Large Joint (Hip,Knee, Shoulder) Injection: R glenohumeral; Trigger Point Injection Reason for Appointment: 1. Neck pain with bilateral arm pain 2. Bilateral shoulder pain 3. Bilateral hand pain History of Present Illness: Daniel Phelan is a 44 y.o. female arrived to the orthopedic department ambulatory, walking with no assisted devices. She is here today for chief complaint of 6/10 posterior neck pain described as a dull, achy type pain which radiates into the bilateral shoulder region. She has also been experiencing right hand tingling sensation in the right thumb, forefinger, middle finger as well as left hand tingling sensation in the left middle finger, ring finger and little finger. She states that her hand pain/finger pain symptoms intensify with driving and they wake her up in the middle of the night and have been ongoing since June 2019 with no associated injuries. Her shoulder pain symptoms increase with activities such as raising her arms to do her hair, pulling out baskets of fries (she works as a [employer]ke [employer] at [employer]). Her neck pain and bilateral shoulder pain symptoms (right > left) have increased since February 2020. 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 She has tried Tylenol, Aleve, Excedrin migraine which did not help with pain symptoms. She has a cervical spine x-ray report from December 09, 2019 from [facility] which indicates the presence of multilevel degenerative disease most pronounced at C5-C6 (she did not bring the cervical spine x-ray disc). She has mild osteoarthritis of the acromioclavicular joint on her left shoulder x-raytoday, with essentially normal findings on the right shoulder x- ray today. Assessment: Diagnosis Plan 1. Neck pain, chronic Ambulatory referral to Orthopedic Surgery Ambulatory referral order to Physical Therapy - 2. Bilateral shoulder pain, unspecified chronicity XR Shoulder Right 2 or More Views XR Shoulder Left 2 or More Views Ambulatory referral order to Physical Therapy - 3. Bilateral arm pain Ambulatory referral order to Physical Therapy - EMG/NCV -Please select the performing region: External Order 4. Bilateral hand pain EMG/NCV -Please select the performing region: External Order 5. Myalgia of muscle of neck Trigger Point Injection Plan: ??? I have ordered EMG/NCS study of the bilateral upper extremities. Reason for EMG/NCS study bilateral upper extremities: She has been experiencing right hand tingling sensation in the right thumb, forefinger, middle finger as well as left hand tingling sensation in the left middle finger, ring finger and little finger. She states that her hand pain/finger pain symptoms intensify with driving and they wake her up in the middle of the night and have been ongoing since June 2019 with no associated injuries. ??? For her chronic posterior neck pain, today I gave Daniel cortisone trigger point injections to the bilateral upper trapezius muscle near C5 where there were focal areas of hyperirritability with palpation. ??? For her chronic bilateral shoulder pain, today I gave Daniel cortisone injections to the bilateral shoulders. ??? I have ordered outpatient physical therapy for further evaluation and treatment of chronic neckpain with bilateral arm/hand pain and chronic bilateral shoulder pain. She plans to do physical therapy in [facility]. ??? Today I reviewed the x-rays of the cervical spine, bilateral shoulders with Daniel. ??? Daniel was instructed to follow up in the orthopedic clinic after completion of physical therapyas well as completion of EMG/NCS study of the bilateral upper extremities for evaluation of her chronic neck, bilateral shoulder, bilateral arm and bilateral hand pain symptoms. Imaging Reviewed: Left shoulder x-ray April 27, 2020, findings per radiologist Dr. Carl Ruiz: FINDINGS: Humeral head is in customary alignment over the glenoid. Mild osteoarthritic changes of the acromioclavicular joint are present. Imaged left hemithorax is unremarkable. No fracture is identified IMPRESSION: Mild osteoarthritis of the acromioclavicular joint. Right shoulder x-ray April 27, 2020, findings per radiologist Dr. Conrad Ruiz: FINDINGS: Humeral head is in customary alignment over the glenoid. No significant osteoarthritic changes are noted. Imaged right hemithorax appears unremarkable. IMPRESSION: Essentially unremarkable radiographs of the right shoulder. Cervical spine x-ray December 09, 2019, from [facility], findings per radiologist Dr. Guevara Tate: Findings: There is straightening and mild reversal of cervical curvature. There is moderate degenerative disc disease at C3-C4, C4-C5 and moderately severe degenerative disease at C5-C6. There is mild degenerative disc disease at C6-C7. There is uncovertebral joint spurring encroaching anteriorly upon bilateral C4, C5, C6 and to a lesser extent C7 neural foramina. No fracture or dislocation or locked facet or prevertebral soft tissue swelling. Impression: 1. Straightening/mild reversal cervical curvature. 2. Multilevel degenerative disease, most pronounced at C5-C6. 3. Uncovertebral joint spurring at multiple levels with encroachment upon bilateral C4-C7 neural foramina. Procedure: Trigger Point Injection Performed by: Thelma Rosa NP Authorized by: Thelma Rosa NP Trigger Point Injection: Consent obtained:: Verbal Risks discussed, including, but not limited to:: Pain Site/side marked: Yes Indications: Myalgia Procedure Details: Location: L upper trapezius and R upper trapezius Local anesthetic: Ethyl chloride spray Ultrasound guidance: No Needle size: 25 G Number of muscles: 1 or 2 Approach: Posterior 2 mL lidocaine 10 mg/mL (1 %); 80 mg methylPREDNISolone acetate 40 mg/mL Patient tolerance: Patient tolerated the procedure well with no immediate complications Large Joint (Hip, Knee, Shoulder) Injection: R glenohumeral Performed by: Thelma Rosa NP Authorized by: Thelma Rosa NP Large Joint Injection/Aspiration: Consent Given by: Patient Site marked: the procedure site was marked Timeout: prior to procedure the correct patient, procedure, and site was verified Verbal consent obtained: Yes Supporting Documentation: Indications: Pain Procedure Details: Location: Shoulder Site: R glenohumeral Prep: patient was prepped using a clean technique Needle Size: 22 G Approach: Posterior Ultrasound guided: Yes Medications: 2 mL lidocaine 10 mg/mL (1 %); 40 mg methylPREDNISolone acetate 40 mg/mL Patient tolerance: Patient tolerated the procedure well with no immediate complications Large Joint (Hip, Knee, Shoulder) Injection: L glenohumeral Performed by: Thelma Rosa NP Authorized by: Thelma Roas NP Large Joint Injection/Aspiration: Consent Given by: Patient Site marked: the procedure site was marked Timeout: prior to procedure the correct patient, procedure, and site was verified Verbal consent obtained: Yes Procedure Details: Location: Shoulder Site: L glenohumeral Prep: patient was prepped using a clean technique Needle Size: 22 G Approach: Posterior Medications: 3 mL lidocaine 10 mg/mL (1 %); 40 mg methylPREDNISolone acetate 40 mg/mL Patient tolerance: Patient tolerated the procedure well with no immediate complications Examination: Ortho Exam Cervical spine exam: ??? Inspection of the cervical spine shows normal alignment, no surgical scars, no skin defects, nomuscle atrophy, no masses, no rashes. ??? There is no concerning pain with palpation over the cervical or thoracic spinous process region. ??? There is mild tenderness with palpation of the bilateral cervical paraspinal/facet region at C5and C6 level. There is a focal area of hyperirritability with palpation over the bilateral upper trapezius muscles near C5-C6. ??? Range of motion with flexion is 50??, with extension is 60??, with lateral rotation is 80?? andlateral bending is 45??. ??? Spurlings test does not produce radicular pain down the bilateral arm/s. ??? Hoffmans test is negative. ??? Lhermittes sign is negative. ??? Sensation is intact in the median, ulnar, radial and axial distribution. ??? She is able to give a thumbs up, give an okay sign, abduct the fingers, cross the fingers, adduct the thumb to the fifth finger, and exhibit full cook specialty strength. 2+ radial and ulnar pulses. Fingers warm to touch with capillary refill < 2 seconds. Right shoulder exam: Inspection: The skin is intact across the shoulder and upper extremity without clinical signs of infection, no ecchymosis. No masses. Fxpxy-[id number]: 170?? of forward flexion actively and passively, however she has increased pain at150??. 90?? of external rotation actively and passively. She does have increased pain with externalrotation with thumbs down going. Internal rotation is to the mid lumbar region Acromioclavicular joint: There is tenderness at the acromioclavicular joint with cross-body adduction. Glenohumeral joint: There is tenderness at the glenohumeral joint with palpation Gautam impingement exam: Positive pain with internal rotation and passive forward flexion to 90??. Jobes supraspinatus strength testin/5 with external rotation. Lift off test: Negative. With the arm placed in internal rotation with the hand behind the small ofback, the patient is able to move the hand away from the body without weakness or pain. Left shoulder exam: Inspection: The skin is intact across the shoulder and upper extremity without clinical signs of infection, no ecchymosis. No masses. [id number]-ng-[id number]: 170?? of forward flexion actively and passively. 90?? of external rotation actively and passively. Internal rotation is to the mid thoracic region. Acromioclavicular joint: There is tenderness at the acromioclavicular joint with cross-body adduction. Glenohumeral joint: There is tenderness at the glenohumeral joint with palpation Gautam impingement exam: Positive pain with internal rotation and passive forward flexion to 90??. Jobes supraspinatus strength testin/5 with external rotation. Lift off test: Negative. With the arm placed in internal rotation with the hand behind the small ofback, the patient is able to move the hand away from the body without weakness or pain. GENERAL APPEARANCE: Well-nourished, in no acute distress NECK: Neck supple. See cervical spine exam above SKIN: No rashes, good turgor, warm and dry, no suspicious lesions HEART:Regular rate and rhythm LUNGS: Unlabored breathing ABDOMEN: Soft,no guarding MUSCULOSKELETAL: See cervical spine, bilateral shoulder, bilateral arms and hand exam above EXTREMITIES: Capillary refill < 2 seconds in nail beds, 2+ bilateral peripheral pulses, no edema NEUROLOGIC: Alert and oriented. PSYCH: Cooperative with exam Allergies: Patient has no known allergies. Medications: Current Outpatient Medications: ??? albuterol HFA (PROVENTIL HFA,VENTOLIN HFA,PROAIR HFA) 90 mcg/actuation inhaler, Inhale 2 puffs every 6 (six) hours as needed, Disp: , Rfl: ??? citalopram (CeleXA) 20 mg tablet, , Disp: , Rfl: ??? cyanocobalamin (Vitamin B-12) 1,000 mcg tablet, Take 1,000 mcg by mouth daily, Disp: , Rfl: ??? flunisolide HFA (AEROSPAN) 80 mcg/actuation inhaler, Inhale 2 puffs 2 (two) times a day, Disp: , Rfl: ??? medroxyPROGESTERone 150 mg/mL injection, INJ 1 ML IM UTD, Disp: , Rfl: ??? omeprazole (PriLOSEC) 20 mg capsule, Take 20 mg by mouth daily, Disp: , Rfl: Review of Systems: Review of Systems Constitutional: Negative for chills and fever. Respiratory: Negative for shortness of breath. Cardiovascular: Negative for chest pain. Musculoskeletal: Positive for joint pain (Bilateral shoulder pain, bilateral hand/finger pain) and neck pain. Skin: Negative for rash. Neurological: Positive for tingling (Bilateral hands/finger). Negative for focal weakness and headaches. Endo/Heme/Allergies: Does not bruise/bleed easily. Psychiatric/Behavioral: The patient is not nervous/anxious. Past Medical History: Past Medical History: Diagnosis Date ??? Asthma ??? Degenerative disc disease, cervical ??? Depression ??? Gastric reflux ??? GERD (gastroesophageal reflux disease) ??? Osteoarthritis of left AC (acromioclavicular) joint Past Surgical History: Past Surgical History: Procedure Laterality Date ??? SECTION ??? CHOLECYSTECTOMY ??? COLONOSCOPY ??? COLONOSCOPY W/ ENDOSCOPIC US ??? TONSILLECTOMY Social History: Social History Occupational History ??? Occupation: [employer] Tobacco Use ??? Smoking status: Current Every Day Smoker ??? Smokeless tobacco: Never Used Substance and Sexual Activity ??? Alcohol use: Never Frequency: Never ??? Drug use: Never ??? Sexual activity: Not on file Vital Signs: Height 165.1 cm (5' 5 ), weight 77.1 kg (170 lb). BMI Readings from Last 1 Encounters: 04/27/20 28.29 kg/m?? Thelma Rosa NP Cosigned by William Perry MD at 05/06/2020 8:18 AM CDT documented in this encounter Plan of Treatment Not on file documented as of this encounter Procedures Procedure Name Priority Date/Time Associated Diagnosis Comments AL ARTHROCENTESIS ASPIR&/INJ MAJOR JT/BURSA W/O US Routine 04/27/2020 9:30 AM CDT Bilateral shoulder pain, unspecified chronicity AL ARTHROCENTESIS ASPIR&/INJ MAJOR JT/BURSA W/US Routine 04/27/2020 9:30 AM CDT Bilateral shoulder pain, unspecified chronicity AL INJECTION SINGLE/FORENSIC DOCUMENT EXAMINER TRIGGER POINT 1/2 MUSCLES Routine 04/27/2020 9:30 AM CDT Myalgia of muscle of neck documented in this encounter Results * XR Shoulder Left 2 or More Views (04/27/2020 10:15 AM CDT) Anatomical Region Laterality Modality Upper Extremities, Shoulder Left Radi ographic Imaging 04/27/2020 2:16 PM CDT Narrative 04/27/2020 2:18 PM CDT Patient Name: DANIEL PHELAN ?Ordering Dr: Thelma Rosa ?? D.O.B: 1975 ? Exam Date: 04/27/20 ?? 1015 ?? Age: 44 ?Sex: Female ? MR#: [id number] ?? Loc: ? RADIOLOGY REPORT ?? Order #[id number] ?? Radiology ? Shoulder LT 2Vw Min (STANDARD) ? Signed ?? EXAM DESCRIPTION: ?? Shoulder LT 2Vw Min (STANDARD) ? REASON FOR STUDY: ?? General shoulder pain for 1 year, no injury ? TECHNIQUE: ?? Scapular-Y, AP internal rotation, true AP external rotation ?? radiographs of the left shoulder were obtained. ? COMPARISON: ?? None available ? FINDINGS: ?Humeral head is in customary alignment over the glenoid. ??Mild osteoarthritic ?? changes of the acromioclavicular joint are present. ??Imaged left hemithorax is ?? unremarkable. ??No fracture is identified. ? IMPRESSION: ?? Mild osteoarthritis of the acromioclavicular joint. ? THIS IS AN ELECTRONICALLY VERIFIED FINAL REPORT ?? 04/27/2020 2:18 PM - Electronically signed by Carl Ruiz M.D. ?? Carl Ruiz M.D. ? AT ?? D: ??04/27/2020 2:18 PM ?? T: ? Report ID: [id number] ?? Reading Location: ??[id number] ? REPORT ELECTRONICALLY SIGNED IN OTHER VENDOR SYSTEM ?? Resulting Agency Comment O Procedure Note Carl Ruiz MD - 04/27/2020 Patient Name: DANIEL PHELAN Dr: Thelma RosaO.B: 1975 Exam Date: 04/27/20 1015 Age: 44 Sex: Female MR#: [id number] Loc: RADIOLOGY REPORT Order #[id number] Radiology Shoulder LT 2Vw Min (STANDARD) Signed EXAM DESCRIPTION: Shoulder LT 2Vw Min (STANDARD) REASON FOR STUDY: General shoulder pain for 1 year, no injury TECHNIQUE: Scapular-Y, AP internal rotation, true AP external rotation radiographs of the left shoulder were obtained. COMPARISON: None available FINDINGS: Humeral head is in customary alignment over the glenoid. Mildosteoarthritic changes of the acromioclavicular joint are present. Imaged lefthemithorax is unremarkable. No fracture is identified. IMPRESSION: Mild osteoarthritis of the acromioclavicular joint. THIS IS AN ELECTRONICALLY VERIFIED FINAL REPORT 04/27/2020 2:18 PM - Electronically signed by Carl Ruiz M.D. AT T: Report ID: [id number] Reading Location: [id number] REPORT ELECTRONICALLY SIGNED IN OTHER VENDOR SYSTEM us Thelma Rosa NP IMG XR PROCEDURES Final Res ult * XR Shoulder Right 2 or More Views (04/27/2020 10:15 AM CDT) Anatomical Region Laterality Modality Upper Extremities, Shoulder Right Radi ographic Imaging 04/27/2020 2:18 PM CDT Narrative 04/27/2020 2:19 PM CDT Patient Name: DANIEL PHELAN ?Ordering Dr: Thelma Rosa ?? D.O.B: 1975 ? Exam Date: 04/27/20 ?? 1015 ?? Age: 44 ?Sex: Female ? MR#: [id number] ?? Loc: ? RADIOLOGY REPORT ?? Order #[id number] ?? Radiology ? Shoulder RT 2Vw Min (STANDARD) ? Signed ?? EXAM DESCRIPTION: ?? Shoulder RT 2Vw Min (STANDARD) ? REASON FOR STUDY: ?? General shoulder pain for 1 year, no injury ? TECHNIQUE: ?? Scapular-Y, true AP external rotation, AP internal rotation ?? radiographs of the right shoulder were obtained. ? COMPARISON: ?? None available ? FINDINGS: ?Humeral head is in customary alignment over the glenoid. ??No significant ?? osteoarthritic changes are noted. ??Imaged right hemithorax appears ?? unremarkable. ? IMPRESSION: ?? Essentially unremarkable radiographs of the right shoulder. ? THIS IS AN ELECTRONICALLY VERIFIED FINAL REPORT ?? 04/27/2020 2:19 PM - Electronically signed by Carl Ruiz M.D. ?? Carl Ruiz M.D. ? AT ?? D: ??04/27/2020 2:19 PM ?? T: ? Report ID: [id number] ?? Reading Location: ??[id number] ? REPORT ELECTRONICALLY SIGNED IN OTHER VENDOR SYSTEM ?? Resulting Agency Comment O Procedure Note Carl Ruiz MD - 04/27/2020 Patient Name: LAVERNEDANIELCOTY Romero Dr: Thelma RosaO.B: 1975 Exam Date: 04/27/20 1015 Age: 44 Sex: Female MR#: [id number] Loc: RADIOLOGY REPORT Order #[id number] Radiology Shoulder RT 2Vw Min (STANDARD) Signed EXAM DESCRIPTION: Shoulder RT 2Vw Min (STANDARD) REASON FOR STUDY: General shoulder pain for 1 year, no injury TECHNIQUE: Scapular-Y, true AP external rotation, AP internal rotation radiographs of the right shoulder were obtained. COMPARISON: None available FINDINGS: Humeral head is in customary alignment over the glenoid. No significant osteoarthritic changes are noted. Imaged right hemithorax appears unremarkable. IMPRESSION: Essentially unremarkable radiographs of the right shoulder. THIS IS AN ELECTRONICALLY VERIFIED FINAL REPORT 04/27/2020 2:19 PM - Electronically signed by Carl Ruiz M.D. AT T: Report ID: [id number] Reading Location: [id number] REPORT ELECTRONICALLY SIGNED IN OTHER VENDOR SYSTEM us Thelma Rosa NP IMG XR PROCEDURES Final Res ult * AL ARTHROCENTESIS ASPIR&/INJ MAJOR JT/BURSA W/O US (04/27/2020 9:30 AM CDT) Narrative William Perry MD - 04/27/2020 9:30 AM CDT Thelma Rosa NP ? 04/27/2020 ??7:21 PM Large Joint (Hip, Knee, Shoulder) Injection: L glenohumeral Performed by: Thelma Rosa NP Authorized by: Thelma Rosa NP Large Joint Injection/Aspiration: ??Consent Given by: ??Patient ??Site marked: the procedure site was marked ?Timeout: prior to procedure the correct patient, procedure, and site was verified ?Verbal consent obtained: Yes ?? Procedure Details: ??Location: ??Shoulder ??Site: ??L glenohumeral ??Prep: patient was prepped using a clean technique ?Needle Size: ??22 G ??Approach: ??Posterior ??Medications: ??3 mL lidocaine 10 mg/mL (1 %); 40 mg methylPREDNISolone acetate 40 mg/mL ??Patient tolerance: ??Patient tolerated the procedure well with no immediate complications us Thelma Rosa NP IN CLINIC/BEDSIDE ORDERABLE S Final Result * AL ARTHROCENTESIS ASPIR&/INJ MAJOR JT/BURSA W/US (04/27/2020 9:30 AM CDT) Narrative William Perry MD - 04/27/2020 9:30 AM CDT Thelma Rosa NP ? 04/27/2020 ??7:21 PM Large Joint (Hip, Knee, Shoulder) Injection: R glenohumeral Performed by: Thelma Rosa NP Authorized by: Thelma Rosa NP Large Joint Injection/Aspiration: ??Consent Given by: ??Patient ??Site marked: the procedure site was marked ?Timeout: prior to procedure the correct patient, procedure, and site was verified ?Verbal consent obtained: Yes ?? Supporting Documentation: ??Indications: ??Pain Procedure Details: ??Location: ??Shoulder ??Site: ??R glenohumeral ??Prep: patient was prepped using a clean technique ?Needle Size: ??22 G ??Approach: ??Posterior ??Ultrasound guided: Yes ?Medications: ??2 mL lidocaine 10 mg/mL (1 %); 40 mg methylPREDNISolone acetate 40 mg/mL ??Patient tolerance: ??Patient tolerated the procedure well with no immediate complications us Thelma Rosa AMBULANCE DRIVER PARAMEDIC IN CLINIC/BEDSIDE ORDERABLE S Final Result * AL INJECTION SINGLE/FORENSIC DOCUMENT EXAMINER TRIGGER POINT 1/2 MUSCLES (04/27/2020 9:30 AM CDT) Narrative William Perry MD - 04/27/2020 9:30 AM CDT Thelma Rosa NP ? 04/27/2020 ??7:21 PM Trigger Point Injection Performed by: Thelma Rosa NP Authorized by: Thelma Rosa NP Trigger Point Injection: ??Consent obtained:: ??Verbal ??Risks discussed, including, but not limited to:: ??Pain ??Site/side marked: Yes ?Indications: ??Myalgia Procedure Details: ??Location: ??L upper trapezius and R upper trapezius ??Local anesthetic: ??Ethyl chloride spray ??Ultrasound guidance: No ?Needle size: ??25 G ??Number of muscles: ??1 or 2 ??Approach: ??Posterior ?? 2 mL lidocaine 10 mg/mL (1 %); 80 mg methylPREDNISolone acetate 40 mg/mL ??Patient tolerance: ??Patient tolerated the procedure well with no immediate complications us Thelma Rosa AMBULANCE DRIVER PARAMEDIC IN CLINIC/BEDSIDE ORDERABLE S Final Result documented in this encounter Visit Diagnoses Diagnosis Neck pain, chronic DDD (degenerative disc disease), cervical Degeneration of cervical intervertebral disc Bilateral shoulder pain, unspecified chronicity Pain in both upper extremities Myalgia of muscle of neck Bilateral shoulder pain, unspecified chronicity documented in this encounter Administered Medications Inactive Administered Medications - up to 3 most recent administrations Medication Order MAR Action Action Date Dose Rate Site lidocaine (XYLOCAINE) 10 mg/mL (1 %) injection 2 mL 2 mL, One-Time Injection, Starting on Sat04/27/20 at 1047, For 1 dose, Indications: Administration of Local AnesthesiaIndications:Administrati on of Local Anesthesia Given 04/27/2020 10:47 AM CDT 2 mL lidocaine (XYLOCAINE) 10 mg/mL (1 %) injection 2 mL 2 mL, One-Time Injection, Starting on Sat04/27/20 at 1049, For 1 dose, Indications: Administration of Local AnesthesiaIndications:Administrati on of Local Anesthesia Given 04/27/2020 10:49 AM CDT 2 mL lidocaine (XYLOCAINE) 10 mg/mL (1 %) injection 3 mL 3 mL, One-Time Injection, Starting on Sat04/27/20 at 1050, For 1 dose, Indications: Administration of Local AnesthesiaIndications:Administrati on of Local Anesthesia Given 04/27/2020 10:50 AM CDT 3 mL methylPREDNISolone acetate (DEPO-medrol) injection 40 mg 40 mg, intra-articular, One-Time Injection, Starting on Sat04/27/20 at 1049, For 1 doseIndications:Bilateral shoulder pain, unspecified chronicity Given 04/27/2020 10:49 AM CDT 40 mg methylPREDNISolone acetate (DEPO-medrol) injection 40 mg 40 mg, intra-articular, One-Time Injection, Starting on Sat04/27/20 at 1050, For 1 doseIndications:Bilateral shoulder pain, unspecified chronicity Given 04/27/2020 10:50 AM CDT 40 mg methylPREDNISolone acetate (DEPO-medrol) injection 80 mg 80 mg, intra-articular, One-Time Injection, Starting on Sat04/27/20 at 1047, For 1 doseIndications:Myalgia of muscle of neck Given 04/27/2020 10:47 AM CDT 80 mg documented in this encounter Historical Medications * This list may reflect changes made after this encounter. omeprazole (PriLOSEC) 20 mg capsule Take 20 mg by mouth daily citalopram (CeleXA) 20 mg tablet Take 2 tablets (40 mg total) by mouth daily 04/13/2020 albuterol HFA (PROVENTIL HFA,VENTOLIN HFA,PROAIR HFA) 90 mcg/actuation inhaler Inhale 2 puffs every 6 (six) hours as needed 01/01/2017 cyanocobalamin (Vitamin B-12) 1,000 mcg tabletIndications :Prevention of Vitamin B12 Deficiency Take 1,000 mcg by mouth daily 09/15/2020 medroxyPROGESTERo ne 150 mg/mL injection INJ 1 ML IM UTD 04/06/2020 06/17/2020 flunisolide HFA (AEROSPAN) 80 mcg/actuation inhaler Inhale 2 puffs 2 (two) times a day 01/03/2017 09/15/2020 added in this encounter Orders Outpatient Referral Count Last Ordered Date Fir st Ordered Date AMB REFERRAL TO ORTHOPEDIC SURGERY 1 2019 documented in this encounter Care Teams Senior Bioinformatics Scientist Relationship Specialty Start Date End Date Kendrick Chacon MD PCP - General 04/27/20 04/30/24 Kendrick Chacon MD Emergency Medicine 04/27/20 documented as of this encounter
--- OUTSIDE RECORDS SUMMARY | 2024-08-18 21:36 | XMS_ITS | Encounter Summary ---
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 AIMS # [id number]; valid 03/03/21-04/01/21. Patient instructed to contact office to schedule f/u with [facility] 5-7 days after MRI documented in this encounter Plan of Treatment Not on file documented as of this encounter Visit Diagnoses Not on filedocumented in this encounter Care Teams Technology Intern Relationship Specialty Start Date End Date Kendrick Chacon MD PCP - General 04/27/20 04/30/24 Kendrick Chacon MD Emergency Medicine 04/27/20 documented as of this encounter
--- OUTSIDE RECORDS SUMMARY | 2024-08-18 21:36 | XMS_ITS | Encounter Summary ---
Author Organization [facility] Address [address] [place] [address] Care Team Providers Care High School Coordinator Name Role Phone Kendrick Chacon MD Primary Care Provider [phone] Kendrick Chacon MD Unavailable Reason for Referral * Diagnostic Imaging (Routine) - Closed Specialty Diagnoses / Procedures Referred By Contac t Referred To Contact Diagnoses Chronic bilateral low back pain, unspecified whether sciatica present Procedures XR Spine Lumbar W Bending 6 or More Views Thelma Rosa NP [address] [place] [address] Phone: tel: fax: [address] [phone] Referral ID Status Reason Start Date Expiration Date Visits Re quested Visits Authorized [id number] Closed 09/13/2020 10/13/2021 1 1 CE SECRETARY Encounter Details Date Type Department Care Team (Late st Contact Info) Description 09/15/2020 7:42 AM OFFICE SECRETARY Hospital Encounter [facility]IM Thelma Rosa NP [address] [place] [address] Chronic bilateral low back pain, unspecified whether sciatica present Social History Tobacco Use Types Packs/Day Years [...] 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 file Not on file documented as of this encounter Medications at Time of Discharge acetaminophen (TYLENOL) 500 mg tablet Acetaminophen Extra Strength 500 mg tablet 04/11/2020 albuterol HFA (PROVENTIL HFA,VENTOLIN HFA,PROAIR HFA) 90 mcg/actuation inhaler Inhale 2 puffs every 6 (six) hours as needed 01/01/2017 citalopram (CeleXA) 20 mg tablet Take 2 tablets (40 mg total) by mouth daily 04/13/2020 fluticasone propion-salmeter oL (AIRDUO RESPICLICK) 55-14 mcg/actuation inhaler 06/09/2020 omeprazole (PriLOSEC) 20 mg capsule Take 20 mg by mouth daily terbinafine (LamISIL) 1 % cream RENNY EXT AA BID 06/09/2020 tolterodine LA (DETROL LA) 4 mg 24 hr capsule Take by mouth daily 09/05/2020 ibuprofen (ADVIL,MOTRIN) 400 mg tablet 09/05/2020 1 meloxicam (MOBIC) 7.5 mg tablet Take 7.5 mg by mouth 2 (two) times a day 09/12/2020 1 methocarbamoL (ROBAXIN) 750 mg tablet Take 750 mg by mouth 3 (three) times a day as needed 09/12/2020 1 documented as of this encounter Plan of Treatment Not on file documented as of this encounter Procedures Procedure Name Priority Date/Time Associated Diagnosis Comments XR SPINE LUMBAR W BENDING 6 OR MORE VIEWS Schedule Routine, Read Routine (OP Routine) 09/15/2020 7:44 AM OFFICE SECRETARY Chronic bilateral low back pain, unspecified whether sciatica present documented in this encounter Results * XR Spine Lumbar W Bending 6 or More Views (09/15/2020 7:44 AM OFFICE SECRETARY) Anatomical Region Laterality Modality Spine N/A Radiographic Domenica ging 09/15/2020 8:53 AM OFFICE SECRETARY Narrative 09/15/2020 8:58 AM OFFICE SECRETARY Patient Name: DANIEL PHELAN ?Ordering Dr: Thelma Rosa ?? D.O.B: 1975 ? Exam Date: 09/15/20 ?? 0744 ?? Age: 45 ?Sex: Female ? MR#: [id number] ?? Loc: ? RADIOLOGY REPORT ?? Order #[id number] ?? Radiology ? Lumbar Spine Bending 6 Vw Min ? Signed ? EXAM DESCRIPTION: ?Lumbar Spine Bending 6 Vw Min ? REASON FOR STUDY: ?? Left low back pain and left buttock pain for 1 week ? TECHNIQUE: ?? 6 radiographic views acquired. ? COMPARISON: ?? None ? FINDINGS: ? SEGMENTATION: ??Normal. ??No transitional anatomy. ? ALIGNMENT: ??Mild levocurvature of the lumbar spine. ??Straightening of the ?? normal lumbar lordosis. ??Grade 1 degenerative anterolisthesis of L4 on L5. no ?? significant change in alignment on flexion extension views. ? VERTEBRAE: ??No acute compression fracture. ??Mild anterior wedging of multiple ?? lower thoracic vertebral bodies which is likely degenerative and chronic. ? Mild lower lumbar facet joint arthropathy. ? DISCS: ??Mild L3-L4 and moderate to severe L5-S1 degenerative disc disease. ? HARDWARE: ??None in the spine. ? OTHER: ??Cholecystectomy clips. ? IMPRESSION: ? 1. ??Mild L3-L4 and moderate to severe L5-S1 degenerative disc disease. ? 2. ??Mild lower lumbar facet joint arthropathy. ??Grade 1 degenerative ?? anterolisthesis of L4 on L5 without change on flexion extension views. ? THIS IS AN ELECTRONICALLY VERIFIED FINAL REPORT ?? 09/15/2020 8:58 AM - Electronically signed by Flakito Bal M.D. ?? Flakito Bal M.D. ? CARMEL: CARMEL ?? D: ??09/15/2020 8:58 AM ?? T: ??09/15/2020 8:58 AM ? Report ID: [id number] ?? Reading Location: ??[id number] ? REPORT ELECTRONICALLY SIGNED IN OTHER VENDOR SYSTEM ?? Resulting Agency Comment O Procedure Note Flakito Bal MD - 09/15/2020 Patient Name: DANIEL PHELAN Dr: Thelma RosaO.B: 1975 Exam Date: 09/15/20 0744 Age: 45 Sex: Female MR#: [id number] Loc: RADIOLOGY REPORT Order #[id number] Radiology Lumbar Spine Bending 6 Vw Min Signed EXAM DESCRIPTION: Lumbar Spine Bending 6 Vw Min REASON FOR STUDY: Left low back pain and left buttock pain for 1 week TECHNIQUE: 6 radiographic views acquired. COMPARISON: None FINDINGS: SEGMENTATION: Normal. No transitional anatomy. ALIGNMENT: Mild levocurvature of the lumbar spine. Straightening of the normal lumbar lordosis. Grade 1 degenerative anterolisthesis of L4 onL5. no significant change in alignment on flexion extension views. VERTEBRAE: No acute compression fracture. Mild anterior wedging ofmultiple lower thoracic vertebral bodies which is likely degenerative and chronic. Mild lower lumbar facet joint arthropathy. DISCS: Mild L3-L4 and moderate to severe L5-S1 degenerative discdisease. HARDWARE: None in the spine. OTHER: Cholecystectomy clips. IMPRESSION: 1. Mild L3-L4 and moderate to severe L5-S1 degenerative disc disease. 2. Mild lower lumbar facet joint arthropathy. Grade 1 degenerative anterolisthesis of L4 on L5 without change on flexion extension views. THIS IS AN ELECTRONICALLY VERIFIED FINAL REPORT 09/15/2020 8:58 AM - Electronically signed by Flakito Bal M.D. CARMEL: CARMEL Report ID: [id number] Reading Location: [place] [id number] REPORT ELECTRONICALLY SIGNED IN OTHER VENDOR SYSTEM Thelma Rosa SPECIAL SERVICE REPRESENTATIVE IMG XR PROCEDURES Final Res ult documented in this encounter Visit Diagnoses Diagnosis Chronic bilateral low back pain, unspecified whether sciatica present documented in this encounter Care Teams High School Coordinator Relationship Specialty Start Date End Date Kendrick Chacon MD PCP - General 04/27/20 04/30/24 Kendrick Chacon MD Emergency Medicine 04/27/20 documented as of this encounter
--- OUTSIDE RECORDS SUMMARY | 2024-08-18 21:36 | XMS_ITS | Encounter Summary ---
Author Organization [facility] Address [address] [place] [address] Care Team Providers Care Probation Counselor Name Role Phone Kendrick Chacon MD Primary Care Provider [phone] Kendrick Chacon MD Unavailable Reason for Referral * MRI/CAT/PET Scan (Routine) - Closed Specialty Diagnoses / Procedures Referred By Contac t Referred To Contact Radiology Diagnoses DDD (degenerative disc disease), lumbar Lumbar spondylosis Anterolisthesis Chronic bilateral low back pain without sciatica Procedures MRI Lumbar Spine WO Contrast Thelma Rosa NP [facility] [place] [address] Phone: tel: fax: [address] [phone] Referral ID Status Reason Start Date Expiration Date Visits Re quested Visits Authorized [id number] Closed 03/03/2021 04/02/2022 1 1 Reason for Visit * MRI/CAT/PET Scan (Routine) - Closed Specialty Diagnoses / Procedures Referred By Contac t Referred To Contact Radiology Diagnoses DDD (degenerative disc disease), lumbar Lumbar spondylosis Anterolisthesis Chronic bilateral low back pain without sciatica Procedures MRI Lumbar Spine WO Contrast Thelma Rosa NP [facility] [place] [address] Phone: tel: fax: [address] [place] [address] Referral ID Status Reason Start Date Expiration Date Visits Re quested Visits Authorized [id number] Closed 03/03/2021 04/02/2022 1 1 Encounter Details Date Type Department Care Team (Latest Contact Info) Description 03/14/2021 3:47 PM CDT - 03/14/2021 11:59 PM CDT Hospital Encounter [facility] MRI [address] [place] [id number] DDD (degenerative disc disease), lumbar-moderate/sev ere L5-S1; Lumbar spondylosis; Anterolisthesis-gra de 1 L4 on L5; Chronic bilateral low back pain without sciatica Discharge Disposition: Discharge to home or self [...] 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 Not on file Not [...] hr capsule Take by mouth daily 09/05/2020 meloxicam (MOBIC) 7.5 mg tablet Take 1 tablet PO BID PRN 60 tablet 2 03/03/2021 1 methocarbamoL (ROBAXIN) 500 mg tablet Take 1-2 tablets PO HS 60 tablet 03/03/2021 1 documented as of this encounter Discharge Disposition Disposition Code Departure Means Destination Discharge to home or self care documented in this encounter Plan of Treatment Not on file documented as of this encounter Procedures Procedure Name Priority Date/Time Associated Diagnosis Comments MRI LUMBAR SPINE WO CONTRAST Schedule Routine, Read Routine (OP Routine) 03/14/2021 5:06 PM CDT DDD (degenerative disc disease), lumbar-moderate/se jose daniel L5-S1 Lumbar spondylosis Anterolisthesis-gr jesús 1 L4 on L5 Chronic bilateral low back pain without sciatica documented in this encounter Results * MRI Lumbar Spine WO Contrast (03/14/2021 5:06 PM CDT) Anatomical Region Laterality Modality Spine N/A Magnetic Resonan ce 03/15/2021 9:01 AM CDT Narrative 03/15/2021 9:05 AM CDT EXAM DESCRIPTION: ?? MRI LUMBAR SPINE WO CONTRAST REASON FOR STUDY: ?? Low back pain with numbness since June. TECHNIQUE: ?? Sagittal and Axial imaging includes T1, T2, STIR sequences. ?? COMPARISON: ?? Lumbar spine 09/15/2020. FINDINGS: SEGMENTATION: ??No transitional anatomy. The lowest well-developed disc space is labeled L5-S1. ALIGNMENT: ??Normal. VERTEBRAE: ??No compression fracture or marrow replacement. DISC HEIGHT: ??Moderate to severe disc degeneration at L5-S1 with milder disc disease elsewhere in sparing at L4-5. HARDWARE: ??None in the spine. CORD/CAUDA: ??Terminates at L1 and is unremarkable. ??No cord tethering lesion is identified. LOWER THORACIC: ??No high-grade spinal canal stenosis or spinal cord compression. INDIVIDUAL DISC LEVELS: L1-2: ??Unremarkable. L2-3: ??Unremarkable. L3-4: ??Annular bulge and facet hypertrophy mildly narrows both foramina. L4-5: ??Facet arthropathy and ligamentous thickening mildly narrows the right foramen. L5-S1: ??Annular bulge and facet arthropathy without spinal canal or lateral recess stenosis. ??Bvxs-yp-[id number] bilateral foraminal narrowing. SACRUM: ??Visualized upper sacrum intact. VISUALIZED UPPER ABDOMEN: ??No significant abnormality. OTHER: ??No other significant findings. IMPRESSION: ?? 1. ??Lumbar disc degeneration preferentially at L5-S1 with accompanying facet arthropathy. ??There is no resultant spinal canal stenosis. ??Foraminal narrowing at L3-4, L4-5 and L5-S1. 2. ??No lumbar spine compression fracture. THIS IS AN ELECTRONICALLY VERIFIED FINAL REPORT 03/15/2021 9:05 AM - Electronically signed by Nicholas Young D.O. D: ??03/15/2021 9:05 AM T: Report ID: [id number] Reading Location: ??[id number] Procedure Note Nicholas Young, - 03/15/2021 EXAM DESCRIPTION: MRI LUMBAR SPINE WO CONTRAST REASON FOR STUDY: Low back pain with numbness since June. TECHNIQUE: Sagittal and Axial imaging includes T1, T2, STIR sequences. COMPARISON: Lumbar spine 09/15/2020. FINDINGS: SEGMENTATION: No transitional anatomy. The lowest well-developed discspace is labeled L5-S1. ALIGNMENT: Normal. VERTEBRAE: No compression fracture or marrow replacement. DISC HEIGHT: Moderate to severe disc degeneration at L5-S1 with milderdisc disease elsewhere in sparing at L4-5. HARDWARE: None in the spine. CORD/CAUDA: Terminates at L1 and is unremarkable. No cord tetheringlesion is identified. LOWER THORACIC: No high-grade spinal canal stenosis or spinal cord compression. INDIVIDUAL DISC LEVELS: L1-2: Unremarkable. L2-3: Unremarkable. L3-4: Annular bulge and facet hypertrophy mildly narrows both foramina. L4-5: Facet arthropathy and ligamentous thickening mildly narrows theright foramen. L5-S1: Annular bulge and facet arthropathy without spinal canal orlateral recess stenosis. Gwea-io-tjburozc bilateral foraminal narrowing. SACRUM: Visualized upper sacrum intact. VISUALIZED UPPER ABDOMEN: No significant abnormality. OTHER: No other significant findings. IMPRESSION: 1. Lumbar disc degeneration preferentially at L5-S1 with accompanyingfacet arthropathy. There is no resultant spinal canal stenosis. Foraminal narrowing at L3-4, L4-5 and L5-S1. 2. No lumbar spine compression fracture. THIS IS AN ELECTRONICALLY VERIFIED FINAL REPORT 03/15/2021 9:05 AM - Electronically signed by Nicholas Young D.O. T: Report ID: [id number] Reading Location: [id number] Thelma Rosa LIFE SKILLS COORDINATOR VOLUNTEER IMG MRI PROCEDURES Final Re sult documented in this encounter Visit Diagnoses Diagnosis DDD (degenerative disc disease), lumbar-moderate/severe L5-S1 Degeneration of lumbar or lumbosacral intervertebral disc Lumbar spondylosis Lumbosacral spondylosis without myelopathy Anterolisthesis-grade 1 L4 on L5 Chronic bilateral low back pain without sciatica documented in this encounter Care Teams Probation Counselor Relationship Specialty Start Date End Date Kendrick Chacon MD PCP - General 04/27/20 04/30/24 Kendrick Chacon MD Emergency Medicine 04/27/20 documented as of this encounter
--- OUTSIDE RECORDS SUMMARY | 2024-08-18 21:36 | XMS_ITS | Encounter Summary ---
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 I informed her unfortunately Dr. Barnes nor Isabel Leonard Were in the office but I could schedule her an appointment for a later date. She stated she didn't feel she needed another appointment as her hand is healed fine according to her and she is having no problems. I let her know I would pass the information to Dr. Barnes. She said she would call if anything changed or if she has problems documented in this encounter Plan of Treatment Not on file documented as of this encounter Visit Diagnoses Not on filedocumented in this encounter Care Teams Community Ambassador Relationship Specialty Start Date End Date Kendrick Chacon MD PCP - General 04/27/20 04/30/24 Kendrick Chacon MD Emergency Medicine 04/27/20 documented as of this encounter
--- OUTSIDE RECORDS SUMMARY | 2024-08-18 21:36 | XMS_ITS | Encounter Summary ---
Author Organization [facility] Address [address] [place] [address] Care Team Providers Care Ordnance Handler Name Role Phone Kendrick Chacon MD Primary Care Provider [phone] Kendrick Chacon MD Unavailable Reason for Referral * Diagnostic Imaging (Routine) - Closed Specialty Diagnoses / Procedures Referred By Contac t Referred To Contact Diagnoses Bilateral shoulder pain, unspecified chronicity Procedures XR Shoulder Right 2 or More Views Thelma Rosa NP [facility] [address] [place] [address] Phone: tel: fax: [address] [phone] Referral ID Status Reason Start Date Expiration Date Visits Re quested Visits Authorized [id number] Closed 04/27/2020 05/27/2021 1 1 * Diagnostic Imaging (Routine) - Closed Specialty Diagnoses / Procedures Referred By Contac t Referred To Contact Diagnoses Bilateral shoulder pain, unspecified chronicity Procedures XR Shoulder Left 2 or More Views Thelma Rosa NP [address] [place] [address] [address] [place] [address] Phone: tel: fax: [address] [phone] Referral ID Status Reason Start Date Expiration Date Visits Re quested Visits Authorized [id number] Closed 04/27/2020 05/27/2021 1 1 Encounter Details Date Type Department Care Team (Late st Contact Info) Description 04/27/2020 10:14 AM CDT Hospital Encounter [facility]IM Thelma Rosa NP [address] [facility] [place] [address] Bilateral shoulder pain, unspecified chronicity Social History Tobacco Use Types Packs/Day Years Used Date Smoking Tobacco: Never Assessed AUDIT-C Answer Date Recorded Q1: How often [...] (40 mg total) by mouth daily 04/13/2020 omeprazole (PriLOSEC) 20 mg capsule Take 20 mg by mouth daily cyanocobalamin (Vitamin B-12) 1,000 mcg tabletIndication s:Prevention of Vitamin B12 Deficiency Take 1,000 mcg by mouth daily 1 flunisolide HFA (AEROSPAN) 80 mcg/actuation inhaler Inhale 2 puffs 2 (two) times a day 01/03/2017 1 medroxyPROGESTER one 150 mg/mL injection INJ 1 ML IM UTD 04/06/2020 0 documented as of this encounter Plan of Treatment Not on file documented as of this encounter Procedures Procedure Name Priority Date/Time Associated Diagnosis Comments XR SHOULDER RIGHT 2 OR MORE VIEWS Schedule Routine, Read Routine (OP Routine) 04/27/2020 10:15 AM CDT Bilateral shoulder pain, unspecified chronicity XR SHOULDER LEFT 2 OR MORE VIEWS Schedule Routine, Read Routine (OP Routine) 04/27/2020 10:15 AM CDT Bilateral shoulder pain, unspecified chronicity documented in this encounter Results * XR Shoulder Right 2 or More Views (04/27/2020 10:15 AM CDT) Anatomical Region Laterality Modality Upper Extremities, Shoulder Right Radi ographic Imaging 04/27/2020 2:18 PM CDT Narrative 04/27/2020 2:19 PM CDT Patient Name: DANIEL PHELAN ?Ordering Dr: Thelma Rosa ANP ?? D.O.B: 1975 ? Exam Date: 04/27/20 ?? 1015 ?? Age: 44 ?Sex: Female ? MR#: [id number] ?? Loc: ? RADIOLOGY REPORT ?? Order #[id number] ?? Radiology ? Shoulder RT 2Vw Min [...] 2:19 PM ?? T: ? Report ID: [id number] ?? Reading Location: ??[id number] ? REPORT ELECTRONICALLY SIGNED IN OTHER VENDOR SYSTEM ?? Resulting Agency Comment O Procedure Note Carl Ruiz MD - 04/27/2020 Patient Name: DANIEL PHELAN Dr: Thelma RosaO.B: 1975 Exam Date: 04/27/20 1015 Age: 44 Sex: Female MR#: [id number] Loc: [facility]#: [id number] RADIOLOGY REPORT Order #[id number] Radiology Shoulder RT 2Vw Min (STANDARD) Signed [...] Carl Ruiz M.D. AT T: Report ID: [id number] Reading Location: [id number] REPORT ELECTRONICALLY SIGNED IN OTHER VENDOR SYSTEM us Thelma Rosa NP IMG XR PROCEDURES Final Res ult * XR Shoulder Left 2 or More Views (04/27/2020 10:15 AM CDT) Anatomical Region Laterality Modality Upper Extremities, Shoulder Left Radi ographic Imaging 04/27/2020 2:16 PM CDT Narrative 04/27/2020 2:18 PM CDT Patient Name: DANIEL PHELAN ?Ordering Dr: Thelma Rosa ANP ?? D.O.B: 1975 ? Exam Date: 04/27/20 ?? 1015 ?? Age: 44 ?Sex: Female ? MR#: [id number] ?? Loc: ? RADIOLOGY REPORT ?? Order #[id number] ?? Radiology ? Shoulder LT 2Vw Min [...] 2:18 PM ?? T: ? Report ID: [id number] ?? Reading Location: ??[id number] ? REPORT ELECTRONICALLY SIGNED IN OTHER VENDOR SYSTEM ?? Resulting Agency Comment O Procedure Note Carl Ruiz MD - 04/27/2020 Patient Name: REKHAMEENUJAIMEDANIEL Dr: Thelma RosaO.B: 1975 Exam Date: 04/27/20 1015 Age: 44 Sex: Female MR#: [id number] Loc: RADIOLOGY REPORT Order #[id number] Radiology Shoulder LT 2Vw Min (STANDARD) Signed [...] Carl Ruiz M.D. AT T: Report ID: [id number] Reading Location: [place] [address] REPORT ELECTRONICALLY SIGNED IN OTHER VENDOR SYSTEM Thelma Rosa QUALITY CONTROL TECH [employer] IMG XR PROCEDURES Final Res ult documented in this encounter Visit Diagnoses Diagnosis Bilateral shoulder pain, unspecified chronicity documented in this encounter Care Teams Ordnance Handler Relationship Specialty Start Date End Date Kendrick Chacon MD PCP - General 04/27/20 04/30/24 Kendrick Chacon MD Emergency Medicine 04/27/20 documented as of this encounter
--- OUTSIDE RECORDS SUMMARY | 2024-08-18 21:36 | XMS_ITS | Encounter Summary ---
Author Organization [facility] Address [address] [place] [address] Care Team Providers Care Corrosion Control Technician Name Role Phone Kendrick Chacon MD Primary Care Provider [phone] Kendrick Chacon MD Unavailable Reason for Visit * Auth/Cert Specialty Diagnoses / Procedures Referred By Contac t Referred To Contact Diagnoses LEFT CARPAL TUNNEL SYNDROME Procedures MS REVISE MEDIAN N/CARPAL TUNNEL SURG RELEASE LEFT CARPAL TUNNEL,ALL OTHER INDICATED PROCEDURES Referral ID Status Reason Start Date Expiration Date Visits Re quested Visits Authorized [id number] 1 1 Encounter Details Date Type Department Care Team (Latest Contact Info) Description 02/15/2021 8:27 AM CDT - 02/15/2021 10:42 AM CDT Hospital En[place] [facility] [place] [address] [place] [address] Josette Barnes MD [address] [place] [address] Discharge Disposition: Discharge to home or self [...] 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 Not on file Not on file documented as of this encounter Last Filed Vital Signs Vital Sign Reading Time Taken Comments Blood Pressure 127/77 02/15/2021 10:36 AM CDT Pulse 67 02/15/2021 10:36 AM CDT Temperature 36.6 ??C (97.9 ??F) 02/15/2021 10:20 AM C DT Respiratory Rate 18 02/15/2021 10:36 AM CDT Oxygen Saturation 99% 02/15/2021 10:36 AM CDT Inhaled Oxygen Concentration - - Weight 77.1 kg (170 lb) 02/15/2021 9:13 AM CDT Height 165.1 cm (5' 5 ) 02/15/2021 9:13 AM CDT Body Mass Index 28.29 02/15/2021 9:13 AM CDT documented in this encounter Discharge Instructions * Discharge Instructions* Josette Barnes MD - 02/15/2021 10:14 AM CDT Elevate your hand above the level of your heart to prevent pain and swelling. Work on making a fullfist and fully opening all digits but avoid heavy lifting while your stitches are in place. Keep your dressing on clean and dry until your follow-up appointment. You may take Tylenol and ibuprofen asneeded for pain. A prescription for oxycodone was sent to your pharmacy. Do NOT drive if you have taken this medication documented in this encounter Medications at Time [...] hr capsule Take by mouth daily 09/05/2020 baclofen (LIORESAL) 10 mg tablet TAKE 1 TABLET BY MOUTH AT BEDTIME NEEDED 30 tablet 2 02/10/2021 1 ibuprofen (ADVIL,MOTRIN) 400 mg tablet 09/05/2020 1 meloxicam (MOBIC) 7.5 mg tablet Take 7.5 mg by mouth 2 (two) times a day 09/12/2020 1 methocarbamoL (ROBAXIN) 750 mg tablet Take 750 mg by mouth 3 (three) times a day as needed 09/12/2020 1 oxyCODONE (ROXICODONE) 5 mg immediate release tabletIndication s:Pain Take 1 tablet (5 mg total) by mouth every 4 (four) hours as needed for pain 5 tablet 02/15/2021 1 documented as of this encounter Ordered Prescriptions Prescription Sig Dispense Quantity Refills Last Filled Start Date End Date oxyCODONE (ROXICODONE) 5 mg immediate release tabletIndications: Pain Take 1 tablet (5 mg total) by mouth every 4 (four) hours as needed for pain 5 tablet 02/15/2021 03/14/2021 documented in this encounter Discharge Disposition Disposition Code Departure Means Destination Discharge to home or self care documented in this encounter H&P Notes * Josette Barnes MD - 02/15/2021 9:31 AM CDT I have reviewed the H&P, examined the patient, and endorse the findings as written. Plan of Care : Based on the above findings, I consider Anat Phelan to be an acceptable risk for : Procedure(s): RELEASE LEFT CARPAL TUNNEL,ALL OTHER INDICATED PROCEDURES The patient presents today for a left open carpal tunnel release for left carpal tunnel syndrome. She tried and failed non operative management. Again, the risks and benefits of a left open carpal tunnel release were discussed with the patient today. These include but are not limited to pain, infection, bleeding, risk to neurovascular structures, tendon injury, incomplete resolution of symptoms and future surgery. The left wrist was marked and consent was obtained. Source Note - Josette Barnes MD - 01/26/2021 1:45 PM CDT Images from the original note were not included. FOLLOW UP VISIT Subjective CHIEF COMPLAINT She had concerns including Pain of the Left Hand. HISTORY OF PRESENT ILLNESS The patient is a 45-year-old left-hand dominant female who presents today for follow-up of her lefthand pain numbness and tingling. She describes numbness and tingling in the left thumb index and middle fingers. She has continued to wear her cock-up wrist splint at night although she states that she is still having numbness and tingling that wakes her from sleep as well as during the day. She previously tried a corticosteroid injection into her left carpal tunnel on 06/17/2020 which the patient stated lasted a few weeks. She previously underwent a right carpal tunnel release on 10/11/2020. The patient never followed up after surgery and states that she took her own sutures out approximately 10 days postop. She notes that she is extremely happy with her right hand and denies any numbness or tingling in her right upper extremity. She would like to have a left open carpal tunnel release and is here today to discuss that. MEDICATIONS She has a current medication list which includes the following prescription(s): albuterol hfa, baclofen, citalopram, fluticasone propion-salmeterol, ibuprofen, meloxicam, methocarbamol, omeprazole, terbinafine, and tolterodine la. REVIEW OF SYSTEMS Constitutional: Negative for fever and chills. HENT: Negative for neck pain. Eyes: Negative for change in vision. Respiratory: Negative for cough and shortness of breath. Cardiovascular: Negative for chest pain or pressure. Hematologic: negative for easy bruising Musculoskeletal: negative for muscle and joint pain GI: negative for constipation Integumentary: negative for skin wound or rash Neurologic: Positive for paresthesias of the left upper extremity Objective PHYSICAL EXAM There were no vitals taken for this visit. General: ??Well appearing in no acute distress Chest: ??Normal work of breathing HEENT: Normocephalic, atraumatic Neuro: alert and oriented to person, place and time Focused exam of the left extremity demonstrates ??radial pulses are 2+ and equal bilaterally. ??Thefingers are warm and well perfused. ??There is no??thenar muscular atrophy appreciated and there is5/5?muscle strength with thumb opposition. ??There is no atrophy of the interossei muscles. ??There is 5/5 abduction strength. ??There is no clawing of the digits. ??There is full symmetric range of motion of the elbows without ulnar nerve subluxation. ??Tinel's at the elbow is negative as is and elbow compression test. ??There is?symmetric??range of motion of the MP and IP joints of the fingers and thumb. ??Positive Ricki's and Tinel's at the left wrist. ?Decreased sensation to light touch along the median nerve distribution on the left. Her 2 point discrimination is to 6 mm inthe thumb, index and middle fingers and 5 mm in the ring and small fingers. ??Sensation is intact to light touch along the radial and ulnar nerve distribution. Examination of the right upper extremity demonstrates a well-healed incision on the right wrist. There are no signs of infection about the incision. There patient is able make a full composite fist and fully open all digits. Her sensation is intact to light touch in the median, radial, ulnar distributions. Her 2 point discrimination is intact to 5 mm on all digits. She has a negative Durkan's andTinel sign at the right wrist. Her digits are warm well perfused. REVIEW OF X-RAYS/STUDIES/LABS EMG dated 05/10/2020 demonstrates a left median peak sensory latency of 4.9ms and a left median motor latency of 4.4ms. There is no abnormality on EMG testing. This is consistent with mild to moderate left carpal tunnel syndrome. X-rays of the left hand dated today were reviewed by me and demonstrate no fractures, dislocation or malalignment. There is positive ulnar variance without signs of ulnocarpal abutment. Assessment/Plan Aant was seen today for pain. Diagnoses and all orders for this visit: Bilateral carpal tunnel syndrome - XR Hand Left 3+ Vw; Future Left hand pain - XR Hand Left 3+ Vw; Future PLAN This is a 45-year-old left-hand dominant female who presents today for evaluation of left hand painnumbness and tingling consistent with carpal tunnel syndrome. I discussed with the patient that her options include continue non operative management including rest, ice, anti-inflammatory medication, activity modification, bracing and corticosteroid injection.At this point the patient has tried and exhausted non operative management and is not interested inanother corticosteroid injection. She is interested in undergoing a left open carpal tunnel release. We reviewed the risks and benefits of this procedure including but not limited to pain, infection,bleeding, risk to neurovascular structures, tendon injury, incomplete resolution of symptoms and future surgery. The patient understood these risks and wished to proceed. She would like to have this done under local anesthesia. We also discussed the normal postoperative course of 2 weeks of no heavy lifting while his stitches are in place but active range of motion of the digits. I also instructed the patient that she does need to follow up postoperatively with me. She expressed understanding and agrees to follow-up. Finally the patient states that she is no longer smoking. A left open carpal tunnel release under local anesthesia will be scheduled at the earliest mutual convenience. Josette Barnes MD documented in this encounter Miscellaneous Notes * Op Note - Josette Barnes MD - 02/15/2021 9:45 AM CDT PREOPERATIVE DIAGNOSIS: Left carpal tunnel syndrome. POSTOPERATIVE DIAGNOSIS: Same. PROCEDURE PERFORMED: Left carpal tunnel release. SURGEON: Josette Barnes MD TYPE OF ANESTHESIA GIVEN: Local. DISPOSITION: To PACU. COMPLICATIONS: None. TOURNIQUET: 250 mmHg 8 minutes EBL: 2cc INDICATIONS FOR PROCEDURE: The patient is a 45-year-old bzfir-[id number] female with history of left carpal tunnel syndrome with persistent symptoms despite nonoperative management. Risks and benefits of carpal tunnel release were discussed with the patient and they elected to proceed with surgery. PROCEDURE: After positioning, the left upper extremity tourniquet was placed and the left upper extremity was prepped and draped in sterile fashion. After a formal time out confirming the correct patient, side and site of surgery,the volar wrist was infiltrated with local anesthetic (7 cc of 1% lidocaine and 0.25% marcaine in 50/50 mixture). Next, a 2.5 centimeter incision was placed on the volaraspect of the wrist right between the thenar and hypothenar eminences. Through this incision skin and subcutaneous tissue was carefully dissected. Transverse carpal ligament was identified and longitudinally split all the way towards the forearm fascia. Distal division ended at the sentinel fat pad, and median nerve was noted in continuity and decompressed nicely. There were no masses noted in the carpal tunnel. The left upper extremity was deflated and skin was closed using 5 0 prolene suturesand the patient's upper extremity was placed in a soft dressing. At the conclusion of the case, allcounts were correct. Post operatively: The patient will keep her dressing on clean and dry until her follow-up appointment. She will elevate her hand above the level of her heart to prevent pain and swelling. She will work on making a full fist and fully opening all digits but avoid heavy lifting while her stitches arein place. She will keep her dressing on clean and dry until her follow-up appointment. She was encou raged to take Tylenol and ibuprofen as needed for pain and a prescription for oxycodone was sent toher pharmacy as well. documented in this encounter Plan of Treatment Not on file documented as of this encounter Procedures Procedure Name Priority Date/Time Associated Diagnosis Comments RELEASE CARPAL TUNNEL 02/15/2021 9:26 AM CDT LEFT CARPAL TUNNEL SYNDROME documented in this encounter Visit Diagnoses Not on filedocumented in this encounter Active and Recently Administered Medications Times are shown in CDT. PRN Medication Order 02/13/2021 02/14/2021 02/15/2021 bupivacaine (MARCAINE) 0.25 % (2.5 mg/mL) preservative free injection (CANCELED) As needed, Starting on Sat02/15/21 at 1001, Intra-Op 1001 (Given - Provid er: Josette Barnes MD) lidocaine-EPINEPHrine (XYLOCAINE with EPI) 1 %-1:100,000 injection (CANCELED) As needed, Starting on Sat02/15/21 at 0948, Intra-Op, Indications: Administration of Local Anesthesia 0948 (Given - Provid er: Josette Barnes MD) sodium chloride 0.9% irrigation (CANCELED) As needed, Starting on Sat02/15/21 at 1002, Intra-Op 0948 (Given - Provid er: Josette Barnes MD)1002 (Canceled Entry - Provider: Josette Barnes MD) documented in this encounter Orders Medications Ordered That Toribio ht Not Have Been Administered Count Last Ordered Date First Ordered Date bupivacaine (MARCAINE) 0.25 % (2.5 mg/mL) preservative free injection 1 02/15/2021 lidocaine-EPINEPHrine (XYLOC SHAUNNA with EPI) 1 %-1:100,000 injection 1 02/15/2021 sodium chloride 0.9% irrigation 1 Nursing Count Last Ordered Date First Orde red Date DISCHARGE ACTIVITY 1 02/15/2021 DISCHARGE CALL PROVIDER 1 02/15/2021 DISCHARGE DRESSING 1 02/15/2021 DISCHARGE INSTRUCTIONS 2 02/15/2021 Discharge Count Last Ordered Date First Orde red Date DISCHARGE PATIENT 1 02/15/2021 documented in this encounter Care Teams Corrosion Control Technician Relationship Specialty Start Date End Date Kendrick Chacon MD PCP - General 04/27/20 04/30/24 Kendrick Chacon MD Emergency Medicine 04/27/20 documented as of this encounter
--- OUTSIDE RECORDS SUMMARY | 2024-08-18 21:36 | XMS_ITS | Encounter Summary ---
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 Left message informing patient of change. Asked for call back to confirm. MENT IMAGE TECHNICIAN documented in this encounter Plan of Treatment Not on file documented as of this encounter Visit Diagnoses Not on filedocumented in this encounter Care Teams Truck Manager Relationship Specialty Start Date End Date Kendrick Chacon MD PCP - General 04/27/20 04/30/24 Kendrick Chacon MD Emergency Medicine 04/27/20 documented as of this encounter
--- OUTSIDE RECORDS SUMMARY | 2024-08-18 21:36 | XMS_ITS | Encounter Summary ---
Author Organization [facility] Address [address] [place] [address] Care Team Providers Care Equipment Operator Wage Hand Name Role Phone Kendrick Chacon MD Primary Care Provider [phone] Kendrick Chacon MD Unavailable Reason for Visit * Reason Comments Pain Injections Follow-up Numbness Pain Injections Follow-up Numbness Encounter Details Date Type Department Care Team (Late st Contact Info) Description 09/22/2020 3:00 PM GRAVURE PRESS OPERATOR Office Visit [facility] Hand Surgery [address] [place] [address] Josette Barnes MD [address] [place] [id number] Bilateral carpal tunnel syndrome (Primary Dx) Social History Tobacco Use Types [...] 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 FOLLOW UP VISIT Subjective CHIEF COMPLAINT She had concerns including Pain, Injections, Follow-up, and Numbness of the Right Hand and Pain, Injections, Follow-up, and Numbness of the Left Hand. HISTORY OF PRESENT ILLNESS The patient returns for follow up of her bilateral carpal tunnel syndrome, right greater than left.She states that she experienced temporary relief of her pain following corticosteroid injection at her last visit but this only lasted for a few weeks. She has also been wearing bilateral splints at night which have failed to relieve her symptoms completely. She still complains of bilateral numbness and tingling into the thumbs, index middle on the left hand and all digits except the small fingeron the right hand. MEDICATIONS She has a current medication list which includes the following prescription(s): albuterol hfa, citalopram, fluticasone propion-salmeterol, ibuprofen, meloxicam, methocarbamol, omeprazole, terbinafine, and tolterodine la. REVIEW OF SYSTEMS Constitutional: Negative for fever and chills. HENT: Negative for neck pain. Eyes: Negative for change in vision. Respiratory: Negative for cough and shortness of breath. Cardiovascular: Negative for chest pain or pressure. Objective PHYSICAL EXAM Ht 165.1 cm (5' 5 ) Wt 77.1 kg (170 lb) BMI 28.29 kg/m?? General: ??Well appearing in no acute distress Chest: ??Normal work of breathing HEENT: Normocephalic, atraumatic Neuro: alert and oriented to person, place and time Focused exam of the bilateral upper extremities. Hands are symmetric in appearance. Radial pulses are 2+ and equal bilaterally. The fingers are warm and well perfused. There is no thenar muscular atrophy appreciated and there is 5/5 muscle strength with thumb opposition. There is no atrophy of the interossei muscles. There is 5/5 abduction strength. There is no clawing of the digits. There is full symmetric range of motion of the elbows without ulnar nerve subluxation. Tinel's at the elbow is negative as is and elbow compression test. There is symmetric range of motion of the MP and IP jointsof the fingers and thumb. Positive Ricki's and Tinel's at the bilateral wrist. Decreased sensation to light touch along the median nerve distribution bilaterally. Her 2 point discrimination is to 6 mm in the thumb, index and middle fingers and 5 mm in the ring and small fingers. Sensation is intact to light touch along the radial and ulnar nerve distribution. REVIEW OF X-RAYS/STUDIES/LABS none Assessment/Plan There are no diagnoses linked to this encounter. PLAN This is a 45 year old female with bilateral carpal tunnel syndrome. I discussed with the patient that at this point her options are continued conservative management with nighttime splinting, rest, ice, anti-inflammatory medications and another corticosteroid injection or surgical management with open carpal tunnel release under local. We discussed the risks and benefits of the procedure including pain, infection, bleeding, risk to neurovascular structures, tendon injury, incomplete resolution of symptoms and future surgery. Since the patient has continued symptoms despite nonsurgical management, she would like to undergo an open carpal tunnel release on the right. We discussed the normal post operative course including immediate range of motion but avoiding heavy lifting while sutures are in place. This will be scheduled at the earliest mutual convenience. Josette Barnes MD URE PRESS OPERATOR documented in this encounter Plan of Treatment Not on file documented as of this encounter Visit Diagnoses Diagnosis Bilateral carpal tunnel syndrome- Primary Carpal tunnel syndrome documented in this encounter Care Teams Equipment Operator Wage Hand Relationship Specialty Start Date End Date Kendrick Chacon MD PCP - General 04/27/20 04/30/24 Kendrick Chacon MD Emergency Medicine 04/27/20 documented as of this encounter
--- OUTSIDE RECORDS SUMMARY | 2024-08-18 21:36 | XMS_ITS | Encounter Summary ---
Author Organization [facility] Address [address] [place] [address] Care Team Providers Care Specialty Transformer Assembler Name Role Phone Kendrick Chacon MD Primary Care Provider [phone] Kendrick Chacon MD Unavailable Reason for Referral * Diagnostic Imaging (Routine) - Closed Specialty Diagnoses / Procedures Referred By Jessica guillermo Referred To Contact Diagnoses Bilateral carpal tunnel syndrome Left hand pain Procedures XR Hand Left 3+ Vw Josette Barnes MD Phone: tel: fax: [facility] [address] [place] [phone] Referral ID Status Reason Start Date Expiration Date Visits Re quested Visits Authorized [id number] Closed 01/25/2021 02/24/2022 1 1 Reason for Visit * Reason Comments Pain Encounter Details Date Type Department Care Team (Late st Contact Info) Description 01/26/2021 1:45 PM CDT Office Visit [facility] Hand Surgery [address] [place] [address] Josette Barnes MD [address] [place] [id number] Bilateral carpal tunnel syndrome (Primary Dx); Left hand pain Social History Tobacco Use Types Packs/Day Years [...] 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 Assessment/Plan Daniel was seen today for pain. Diagnoses and [...] Josette Barnes MD documented in this encounter Plan of Treatment Not on file documented as of this encounter Results * XR Hand Left 3+ Vw (01/26/2021 1:51 PM CDT) Anatomical Region Laterality Modality Upper Extremities, Hand [facility] 01/27/2021 8:41 AM CDT Narrative 01/27/2021 8:42 AM CDT Patient Name: DANIEL PHELAN ?Ordering Dr: Josette Barnes MD ?? D.O.B: 1975 ? Exam Date: 01/26/21 ?? 1351 ?? Age: 45 ?Sex: Female ? MR#: [id number] ?? Loc: ? RADIOLOGY REPORT ?? Order #[id number] ?? Radiology ? Hand Left 3 View Min ? Signed ?? EXAM DESCRIPTION: ? 1. ??Hand Left 3 View Min ? REASON FOR STUDY: ??General pain, numbness and tingling in hand for 2 years, no ?? injury ? TECHNIQUE: ??Three views submitted without comparison. ? FINDINGS: ? There are no fractures. ??Ulnar positive variance is present. ??The joint spaces ?? are normal in appearance. ??There is no dorsal wrist soft tissue swelling. ? IMPRESSION: ? 1. ??Left ulnar positive variance. ? THIS IS AN ELECTRONICALLY VERIFIED FINAL REPORT ?? 01/27/2021 8:42 AM - Electronically signed by Eh Chu M.D. ?? Eh Chu M.D. ? MF ?? D: ??01/27/2021 8:42 AM ?? T: ? Report ID: [id number] ?? Reading Location: ??[id number] ? REPORT ELECTRONICALLY SIGNED IN OTHER VENDOR SYSTEM ?? Resulting Agency Comment O Procedure Note Eh Chu MD - 01/27/2021 Patient Name: DANIEL PHELAN Dr: Josette Barnes MD D.O.B: 1975 Exam Date: 01/26/21 1351 Age: 45 Sex: Female MR#: [id number] Loc: [facility]#: [id number] RADIOLOGY REPORT Order #[id number] Radiology Hand Left 3 View Min Signed EXAM DESCRIPTION: 1. Hand Left 3 View Min REASON FOR STUDY: General pain, numbness and tingling in hand for 2years, no injury TECHNIQUE: Three views submitted without comparison. FINDINGS: There are no fractures. Ulnar positive variance is present. The jointspaces are normal in appearance. There is no dorsal wrist soft tissue swelling. IMPRESSION: 1. Left ulnar positive variance. THIS IS AN ELECTRONICALLY VERIFIED FINAL REPORT 01/27/2021 8:42 AM - Electronically signed by hE Chu M.D. T: Report ID: [id number] Reading Location: [place] [id number] REPORT ELECTRONICALLY SIGNED IN OTHER VENDOR SYSTEM us Josette Barnes MD IMG XR PROCEDURES Final R esult documented in this encounter Visit Diagnoses Diagnosis Bilateral carpal tunnel syndrome- Primary Carpal tunnel syndrome Left hand pain Pain in soft tissues of limb Bilateral carpal tunnel syndrome Carpal tunnel syndrome Left hand pain Pain in soft tissues of limb documented in this encounter Care Teams Specialty Transformer Assembler Relationship Specialty Start Date End Date Kendrick Chacon MD PCP - General 04/27/20 04/30/24 Kendrick Chacon MD Emergency Medicine 04/27/20 documented as of this encounter
--- OUTSIDE RECORDS SUMMARY | 2024-08-18 21:36 | XMS_ITS | Encounter Summary ---
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 Called requesting to move appointment to 03/08/21, we accommodated and rescheduled for 03/08 @ 1 pm. Patient no showed forthe appointment. I called patient to let her know she missed appointment, she said she had emergency and did not think it was necessary to follow up, said her hand was fine. Per Dr. Barnes she asked nilson de la cruznicole to reschedule which she did for today at 3 and then no showed again. documented in this encounter Plan of Treatment Not on file documented as of this encounter Visit Diagnoses Not on filedocumented in this encounter Care Teams Cleaning Supervisor Relationship Specialty Start Date End Date Kendrick Chacon MD PCP - General 04/27/20 04/30/24 Kendrick Chacon MD Emergency Medicine 04/27/20 documented as of this encounter
--- OUTSIDE RECORDS SUMMARY | 2024-08-18 21:36 | XMS_ITS | Encounter Summary ---
Author Organization [facility] Address [address] [facility] [address] [place] [id number] Care Team Providers Care Cnc Service Engineer Name Role Phone Kendrick Chacon MD Primary Care Provider [phone] Kendrick Chacon MD Unavailable Reason for Referral * Procedure (Routine) - Closed Specialty Diagnoses / Procedures Referred By Contac t Referred To Contact Diagnoses Myalgia, other site Procedures Trigger Point Injection Thelma Rosa NP [address] [place] [address] Phone: tel: fax: [facility] Referral ID Status Reason Start Date Expiration Date Visits Re quested Visits Authorized [id number] Closed 09/15/2020 10/15/2021 1 1 RER DRYING DEPARTMENT * Diagnostic Imaging (Routine) - Closed Specialty Diagnoses / Procedures Referred By Contac t Referred To Contact Diagnoses Chronic bilateral low back pain, unspecified whether sciatica present Procedures XR Spine Lumbar W Bending 6 or More Views Thelma Rosa NP [facility] [place] [address] Phone: tel: fax: [address] [phone] Referral ID Status Reason Start Date Expiration Date Visits Re quested Visits Authorized [id number] Closed 09/13/2020 10/13/2021 1 1 RER DRYING DEPARTMENT Reason for Visit * Reason Comments Pain Encounter Details Date Type Department Care Team (Late st Contact Info) Description 09/15/2020 8:00 AM LAB[facility]ER DRYING DEPARTMENT Office Visit [facility] Orthopedics and Sports Medicine [address] [place] [phone] Thelma Rosa, W[employer] AND BASE ASSEMBLER [address] [place] [phone] Chronic bilateral low back pain, unspecified whether sciatica present; Lumbar spondylosis; DDD (degenerative disc disease), lumbar, moderate/severe L5-S1, mild L3-L4; Anterolisthesis-grad e 1 L4 on L5; Myalgia, other site Social History Tobacco Use Types Packs/Day Years [...] 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 Not on file Not on file documented as of this encounter Last Filed Vital Signs Vital Sign Reading Time Taken Comments Blood Pressure - - Pulse - - Temperature - - Respiratory Rate - - Oxygen Saturation - - Inhaled Oxygen Concentration - - Weight 77.1 kg (170 lb) 09/15/2020 8:11 AM [facility]PART[facility] Height 165.1 cm (5' 5 ) 09/15/2020 8:11 AM LAB[facility]YING [facility]PARTMENT Body Mass Index 28.29 09/15/2020 8:11 AM [facility]PARTMENT documented in this encounter Progress Notes * Thelma Rosa NP - 09/15/2020 8:00 AM CSTAssociated Order(s): Trigger Point Injection Reason for Appointment: 1. Low back pain History of Present Illness: Daniel Phelan is a 45 y.o. female arrived to the orthopedic department she was referred by Dr. Kendrick Chacon for further evaluation of her back pain symptoms. She reports a history of intermittent low back pain since 2014 with no associated injuries contributing to her pain symptoms. She reports having worsening left-sided low back pain symptoms June 2020 with an unknown cause with which intensified September 12, 2020. She denies any radicular leg pain symptoms. Her back pain symptoms intensify up to 9/10 described as an achy, pulling, throbbing left lower lumbar pain with some pain in the left gluteal region. Her pain symptoms are greatest in the morning with significant stiffness andachiness when getting out of bed, with changing positions from prolonged sitting to standing, with changing positions from bending to standing. 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 She has tried a Medrol Dosepak prescribed by her PMD. She also went to [facility] on September 12, 2020 for her back pain symptoms and was prescribed meloxicam 7.5 mg b.i.d., Robaxin with no reduction of back pain symptoms. She is currently using OTC ibuprofen 800 mg t.i.d. she has not had any outpatient physical therapy or caregiver services home. She denies bowel or bladderdysfunction and denies saddle anesthesia type symptoms. Assessment: Diagnosis Plan 1. Chronic bilateral low back pain, unspecified whether sciatica present XR Spine Lumbar W Bending 6 or More Views Ambulatory referral order to Physical Therapy - 2. Lumbar spondylosis Ambulatory referral order to Physical Therapy - 3. DDD (degenerative disc disease), lumbar, moderate/severe L5-S1, mild L3-L4 4. Anterolisthesis-grade 1 L4 on L5 5. Myalgia, other site Trigger Point Injection Plan: ??? Today I reviewed with Daniel, the lumbar spine 6 view x-ray obtained today September 15, 2020. ??? I have ordered outpatient physical therapy 2-3 times per week for 4-6 weeks for further evaluation and treatment of her chronic lumbar pain, chronic lumbar spondylosis pain symptoms. She plans todo outpatient physical therapy in [facility]. ??? Today I gave Daniel cortisone trigger point injections using 2 mL 1% lidocaine without epi and 40 mg of methylprednisolone to the left lower lumbar quadratus lumborum muscles near L4-L5 and L5-S1 where there were focal areas of hyperirritability with palpation. ??? I have prescribed meloxicam 7.5 mg b.i.d. p.r.n. #60. She was instructed to stop using ibuprofen or other NSAIDs when taking meloxicam. ??? She has a follow-up appointment scheduled November 03, 2020 for further evaluation of her chronic low back pain symptoms after completion of physical therapy. Imaging Reviewed: Lumbar spine x-ray (6 view) September 15, [address] Flakito Bal: FINDINGS: SEGMENTATION: Normal. No transitional anatomy. ALIGNMENT: Mild levocurvature of the lumbar spine. Straightening of the normal lumbar lordosis. Grade 1 degenerative anterolisthesis of L4 on L5. no significant change in alignment on flexion extension views. VERTEBRAE: No acute compression fracture. Mild anterior wedging of multiple lower thoracicvertebral bodies which is likely degenerative and chronic. Mild lower lumbar facet joint arthropathy. DISCS: Mild L3-L4 and moderate to severe L5-S1 degenerative disc disease. HARDWARE: None in the spine. OTHER: Cholecystectomy clips. IMPRESSION: 1. Mild L3-L4 and moderate to severe L5-S1 degenerative disc disease. 2. Mild lower lumbar facet joint arthropathy. Grade 1 degenerative anterolisthesis of L4 on L5 without change on flexion extension views Procedure: Trigger Point Injection Performed by: Thelma Rosa NP Authorized by: Thelma Rosa NP Trigger Point Injection: Consent obtained:: Verbal Risks discussed, including, but not limited to:: Pain Alternatives discussed:: Alternative treatment Indications: Myalgia Procedure Details: Location: L quadratus lumborum Local anesthetic: Ethyl chloride spray Ultrasound guidance: No Needle size: 22 G Number of muscles: 1 or 2 Approach: Posterior 4 mL lidocaine 10 mg/mL (1 %); 80 mg methylPREDNISolone acetate 40 mg/mL Patient tolerance: Patient tolerated the procedure well with no immediate complications Examination: Ortho Exam Lumbar spine exam: ??? Inspection of the lumbar spine shows normal alignment, no surgical scars, no skin defects, no muscle atrophy, no masses, and no rashes. ??? Thoracic or lumbar spinous process pain. No pain with palpation ??? Lumbar paraspinal/facet pain. There is tenderness with palpation of the left lower lumbar facetregion at L-4, L-5 and S1. ??? There is increased lumbar pain with extension and left lateral bending. ??? Referred pain to the left gluteal region ??? Straight leg raise produces negative radicular leg pain ??? Wolff sign produces negative radicular leg pain with extension ??? Sensation is intact in the superficial peroneal nerve, deep peroneal nerve, sural, saphenous, and plantar nerves. ??? Deep tendon reflexes of the patella and achilles 2+. ??? There is no groin pain with logroll internal and external rotation of the hip. ??? There is full strength with hip adduction, abduction and flexion of the hip with (100) degrees of hip flexion, (50) degrees of external rotation and (30) degrees of internal rotation. ??? no tenderness with palpation of the bilateral greater trochanter. ??? full and equal strength with knee extension, flexion, ankle dorsi and plantar flexion. ??? There is no pain on palpation or swelling of the calf concerning for deep vein thrombosis. ??? The lower extremities are warm and well perfused. 2+ dorsalis pedis pulses. Toes warm to touch with capillary refill < 2 seconds. GENERAL APPEARANCE: Well-nourished, in no acute distress NECK: Neck supple SKIN: No presence of lumbar erythema or ecchymosis. No presence of lumbar skin excoriation or rashes, good turgor, warm and dry, no suspicious lesions HEART:Regular rate and rhythm LUNGS: Unlabored breathing ABDOMEN: Soft,no guarding MUSCULOSKELETAL: See lumbar spine exam above. EXTREMITIES: Capillary refill < 2 seconds in nail beds, 2+ bilateral peripheral pulses, no edema NEUROLOGIC: Alert and oriented. She walks independently with a stable gait with no assisted devices. PSYCH: Cooperative with exam Allergies: Patient has no known allergies. Medications: Current Outpatient Medications: ??? albuterol HFA (PROVENTIL HFA,VENTOLIN HFA,PROAIR HFA) 90 mcg/actuation inhaler, Inhale 2 puffs every 6 (six) hours as needed, Disp: , Rfl: ??? citalopram (CeleXA) 20 mg tablet, , Disp: , Rfl: ??? fluticasone propion-salmeteroL (AIRDUO RESPICLICK) 55-14 mcg/actuation inhaler, , Disp: , Rfl: ??? ibuprofen (ADVIL,MOTRIN) 400 mg tablet, , Disp: , Rfl: ??? meloxicam (MOBIC) 7.5 mg tablet, Take 7.5 mg by mouth 2 (two) times a day, Disp: , Rfl: ??? methocarbamoL (ROBAXIN) 750 mg tablet, Take 750 mg by mouth 3 (three) times a day as needed, Disp: , Rfl: ??? omeprazole (PriLOSEC) 20 mg capsule, Take 20 mg by mouth daily, Disp: , Rfl: ??? terbinafine (LamISIL) 1 % cream, RENNY EXT AA BID, Disp: , Rfl: ??? tolterodine LA (DETROL LA) 4 mg 24 hr capsule, Take by mouth daily, Disp: , Rfl: Past Medical History: Past Medical History: Diagnosis Date ??? Anterolisthesis L4 on L5, grade 1 ??? Asthma ??? DDD (degenerative disc disease), cervical ??? DDD (degenerative disc disease), lumbar ??? Depression ??? Gastric reflux ??? GERD (gastroesophageal reflux disease) ??? Lumbar spondylosis ??? Osteoarthritis of left AC (acromioclavicular) joint Past Surgical History: Past Surgical History: Procedure Laterality Date ??? SECTION ??? CHOLECYSTECTOMY ??? COLONOSCOPY ??? COLONOSCOPY W/ ENDOSCOPIC US ??? TONSILLECTOMY Social History: Social History Occupational History ??? 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 Smoking status: Current Every Day Smoker ??? Smokeless tobacco: Never Used Substance and Sexual Activity ??? Alcohol use: Never Frequency: Never ??? Drug use: Never ??? Sexual activity: Not on file Vital Signs: Height 165.1 cm (5' 5 ), weight 77.1 kg (170 lb). BMI Readings from Last 1 Encounters: 09/15/20 28.29 kg/m?? Thelma Rosa NP [facility]ER DRYING [facility]PARTMENT documented in this encounter Plan of Treatment Not on file documented as of this encounter Procedures Procedure Name Priority Date/Time Associated Diagnosis Comments WA INJECTION SINGLE/YARD COORDINATOR TRIGGER POINT 1/2 MUSCLES Routine 09/15/2020 8:00 AM LAB[facility]ER [facility]YING DEPARTMENT Myalgia, other site documented in this encounter Results * WA INJECTION SINGLE/YARD COORDINATOR TRIGGER POINT 1/2 MUSCLES (09/15/2020 8:00 AM LAB[facility]ER DRYING DEPARTMENT) Narrative Thelma Rosa NP - 09/15/2020 8:00 AM LABORER DRYING DEPARTMENT Thelma Rosa NP ? 09/16/2020 ??8:05 PM Trigger Point Injection Performed by: Thelma Rosa NP Authorized by: Thelma Rosa NP Trigger Point Injection: ??Consent obtained:: ??Verbal ??Risks discussed, including, but not limited to:: ??Pain ??Alternatives discussed:: ??Alternative treatment ??Indications: ??Myalgia Procedure Details: ??Location: ??L quadratus lumborum ??Local anesthetic: ??Ethyl chloride spray ??Ultrasound guidance: No ?Needle size: ??22 G ??Number of muscles: ??1 or 2 ??Approach: ??Posterior ?? 4 mL lidocaine 10 mg/mL (1 %); 80 mg methylPREDNISolone acetate 40 mg/mL ??Patient tolerance: ??Patient tolerated the procedure well with no immediate complications us Thelma Rosa NP IN CLINIC/BEDSIDE ORDERABLE S Final Result * XR Spine Lumbar W Bending 6 or More Views (09/15/2020 7:44 AM LABORER DRYING DEPARTMENT) Anatomical Region Laterality Modality Spine N/A Radiographic Domenica ging 09/15/2020 8:53 AM LAB[facility]ER DRYING DEPARTMENT Narrative 09/15/2020 8:58 AM LAB[facility]ER DRYING DEPARTMENT Patient Name: DANIEL PHELAN ?Ordering Dr: Thelma Rosa ANP ?? D.O.B: 1975 ? Exam Date: 09/15/ ?? 0744 ?? Age: 45 ?Sex: Female ? MR#: [id number] ?? Loc: ? RADIOLOGY REPORT ?? Order #[id number] ?? Radiology ? Lumbar Spine Bending 6 [...] T: ??09/15/2020 8:58 AM ? Report ID: [id number] ?? Reading Location: ??[id number] ? REPORT ELECTRONICALLY SIGNED IN OTHER VENDOR SYSTEM ?? Resulting Agency Comment O Procedure Note Flakito Bal MD - 09/15/2020 Patient Name: DANIEL PHELAN Dr: Thelma Rosa D.O.B: 1975 Exam Date: 09/15/20 0744 Age: 45 Sex: Female MR#: [id number] Loc: RADIOLOGY REPORT Order #[id number] Radiology Lumbar Spine Bending 6 Vw Min [...] Flakito Bal M.D. CARMEL: CARMEL Report ID: [id number] Reading Location: [id number] REPORT ELECTRONICALLY SIGNED IN OTHER VENDOR SYSTEM Thelma Rosa NP IMG XR PROCEDURES Final Res ult documented in this encounter Visit Diagnoses Diagnosis Chronic bilateral low back pain, unspecified whether sciatica present Lumbar spondylosis Lumbosacral spondylosis without myelopathy DDD (degenerative disc disease), lumbar, moderate/severe L5-S1, mild L3-L4 Degeneration of lumbar or lumbosacral intervertebral disc Anterolisthesis-grade 1 L4 on L5 Myalgia, other site Chronic bilateral low back pain, unspecified whether sciatica present documented in this encounter Administered Medications Inactive Administered Medications - up to 3 most recent administrations Medication Order MAR Action Action Date Dose Rate Site lidocaine (XYLOCAINE) 10 mg/mL (1 %) injection 4 mL 4 mL, One-Time Injection, Starting on Ifrah 09/15/20 at 0849, For 1 dose, Indications: Administration of Local AnesthesiaIndications:Administratio n of Local Anesthesia Given 09/15/2020 8:49 AM LABORER DRYING DEPARTMENT 4 mL methylPREDNISolone acetate (DEPO-medrol) injection 80 mg 80 mg, intra-articular, One-Time Injection, Starting on Ifrah 09/15/20 at 0849, For 1 doseIndications:Myalgia, other site Given 09/15/2020 8:49 AM LABORER DRYING DEPARTMENT 80 mg documented in this encounter Discontinued Medications Medication Sig Discontinue Reason Start Date End Da te cyanocobalamin (Vitamin B-12) 1,000 mcg tabletIndications:Preven tion of Vitamin B12 Deficiency Take 1,000 mcg by mouth daily 09/15/2020 flunisolide HFA (AEROSPAN) 80 mcg/actuation inhaler Inhale 2 puffs 2 (two) times a day 01/03/2017 09/15/2020 documented as of this encounter Historical Medications * This list may reflect changes made after this encounter. tolterodine LA (DETROL LA) 4 mg 24 hr capsule Take by mouth daily 09/05/2020 terbinafine (LamISIL) 1 % cream RENNY EXT AA BID 06/09/2020 methocarbamoL (ROBAXIN) 750 mg tablet Take 750 mg by mouth 3 (three) times a day as needed 09/12/2020 03/03/2021 meloxicam (MOBIC) 7.5 mg tablet Take 7.5 mg by mouth 2 (two) times a day 09/12/2020 03/03/2021 ibuprofen (ADVIL,MOTRIN) 400 mg tablet 09/05/2020 03/03/2021 added in this encounter Care Teams Cnc Service Engineer Relationship Specialty Start Date End Date Kendrick Chacon MD PCP - General 04/27/20 04/30/24 Kendrick Chacon MD Emergency Medicine 04/27/20 documented as of this encounter
--- OUTSIDE RECORDS SUMMARY | 2024-08-18 21:36 | XMS_ITS | Encounter Summary ---
Author Organization [facility] Address [address] [facility] [address] [place] [address] Care Team Providers Care Dermatology Nurse Practitioner Name Role Phone Kendrick Chacon MD Primary Care Provider [phone] Kendrick Chacon MD Unavailable Reason for Visit * Reason Onset Date Comments [facility] 03/14/2021 Encounter Details Date Type Department Care Team (Late st Contact Info) Description 03/14/[address] 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 Waiting on MRI results to determine course of treatment. Patient had MRI done on 03/14/21. Patient verbally understood * Telephone Encounter - Daisha Romo MA - 03/14/2021 4:21 PM CDT Printed for [facility] to review * Telephone Encounter - Tessa Lala MA - 03/14/2021 2:49 PM CDT [facility]. Pt called stating she was prescribed Robaxin for low back pain/spasms. She states she has beeneating them like candy and just not at bed time. She states she does not get any relief from the medication and wants to know what else she can take. Please call documented in this encounter Plan of Treatment Not on file documented as of this encounter Visit Diagnoses Not on filedocumented in this encounter Discontinued Medications Medication Sig Discontinue Reason Start Date End Da te oxyCODONE (ROXICODONE) 5 mg immediate release tabletIndications:Pain Take 1 tablet (5 mg total) by mouth every 4 (four) hours as needed for pain 02/15/2021 03/14/2021 documented as of this encounter Care Teams Dermatology Nurse Practitioner Relationship Specialty Start Date End Date Kendrick Chacon MD PCP - General 04/27/20 04/30/24 Kendrick Chacon MD Emergency Medicine 04/27/20 documented as of this encounter
--- OUTSIDE RECORDS SUMMARY | 2024-08-18 21:36 | XMS_ITS | Encounter Summary ---
Author Organization [facility] Address [address] [place] [address] Care Team Providers Care Checkout Operator Name Role Phone Kendrick Chacon MD Primary Care Provider [phone] Kendrick Chacon MD Unavailable Reason for Visit * Auth/Cert Specialty Diagnoses / Procedures Referred By Contac t Referred To Contact Diagnoses LEFT CARPAL TUNNEL SYNDROME Procedures MN REVISE MEDIAN N/CARPAL TUNNEL SURG RELEASE LEFT CARPAL TUNNEL,ALL OTHER INDICATED PROCEDURES Referral ID Status Reason Start Date Expiration Date Visits Re quested Visits Authorized [id number] 1 1 Encounter Details Date Type Department Care Team (Late st Contact Info) Description 02/15/2021 9:45 AM CDT - 02/15/2021 10:30 AM [place] [address] [place] [address] Josette Barnes MD [address] [place] [id number] RELEASE LEFT CARPAL TUNNEL,ALL OTHER INDICATED PROCEDURES Surgery Details Date/Time Status Location OR Service Patient Class Case Class Case Type Trauma Case? 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 Assessment/Plan Anat was seen today for pain. Diagnoses and [...] FOR PROCEDURE: The patient is a 45-year-old rajgq-xenr-bxdadwol female with history of left carpal tunnel [...] Diagnoses Not on filedocumented in this encounter Administered Medications Inactive Administered Medications - up to 3 most recent administrations Medication Order MAR Action Action Date Dose Rate Site bupivacaine (MARCAINE) 0.25 % (2.5 mg/mL) preservative free injection As needed, Starting on Sat02/15/21 at 1001, Intra-Op Given 02/15/2021 10:01 AM CDT 3.5 mL lidocaine-EPINEPHrine (XYLOCAINE with EPI) 1 %-1:100,000 injection As needed, Starting on Sat02/15/21 at 0948, Intra-Op, Indications: Administration of Local AnesthesiaIndications:Administrat ion of Local Anesthesia Given 02/15/2021 9:48 AM CDT 3.5 mL sodium chloride 0.9% irrigation As needed, Starting on Sat02/15/21 at 1002, Intra-Op Given 02/15/2021 9:48 AM CDT 120 mL documented in this encounter Active and Recently [...] Barnes MD) documented in this encounter Orders Nursing Count Last Ordered Date First Orde red Date DISCHARGE ACTIVITY 1 02/15/2021 DISCHARGE CALL PROVIDER 1 02/15/2021 DISCHARGE DRESSING 1 02/15/2021 DISCHARGE INSTRUCTIONS 2 02/15/2021 Discharge Count Last Ordered Date First Orde red Date DISCHARGE PATIENT 1 02/15/2021 documented in this encounter Care Teams Checkout Operator Relationship Specialty Start Date End Date Kendrick Chacon MD PCP - General 04/27/20 04/30/24 Kendrick Chacon MD Emergency Medicine 04/27/20 documented as of this encounter
--- OUTSIDE RECORDS SUMMARY | 2024-08-18 21:36 | XMS_ITS | Encounter Summary ---
Author Organization [facility] Address [address] [place] [address] Care Team Providers Care Program Dir Name Role Phone Kendrick Chacon MD Primary Care Provider [phone] Kendrick Chacon MD Unavailable Reason for Referral * Procedure (Routine) - Closed Specialty Diagnoses / Procedures Referred By Jessica t Referred To Contact Diagnoses Carpal tunnel syndrome, bilateral Procedures Carpal Tunnel Injection Josette Barnes MD Phone: tel: fax: [facility] Medical [facility] Referral ID Status Reason Start Date Expiration Date Visits Re quested Visits Authorized [id number] Closed 06/17/2020 07/17/2021 1 1 Reason for Visit * Reason Comments Pain Numbness Pain Numbness Encounter Details Date Type Department Care Team (Late st Contact Info) Description 06/17/2020 10:00 AM CDT Office Visit [facility] Hand Surgery [address] [place] [address] Josette Barnes MD [address] [place] [id number] Carpal tunnel syndrome, bilateral (Primary Dx) Social History Tobacco Use Types [...] 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 CHIEF COMPLAINT: bilateral hand numbness HPI: Anat Phelan is a 44 y.o. year old left hand dominant female presenting with bilateral hand numbness and tingling. The patient states that this has been going on for over a year but hasbecome worse over the last several months. She describes a sharp, burning, aching pain in the bilateral hands particularly in the thumb index and middle finger on the left hand in all digits of the right hand. She states that her pain is moderate in nature. This is particularly worse at night, while driving, in using her cell phone. She reports nighttime symptoms that wake her from sleep where she needs to shake out her hands. She states that repetitive motion makes this worse notes nothing that alleviates the symptoms.She has tried anti-inflammatory medications. She denies bracing or previous corticosteroid injections. Past Surgical History: Procedure Laterality Date ??? SECTION ??? CHOLECYSTECTOMY ??? COLONOSCOPY ??? COLONOSCOPY W/ ENDOSCOPIC US ??? TONSILLECTOMY Current Outpatient Medications on File Prior to Visit Medication Sig Dispense Refill ??? albuterol HFA (PROVENTIL HFA,VENTOLIN HFA,PROAIR HFA) 90 mcg/actuation inhaler Inhale 2 puffs every 6 (six) hours as needed ??? citalopram (CeleXA) 20 mg tablet ??? cyanocobalamin (Vitamin B-12) 1,000 mcg tablet Take 1,000 mcg by mouth daily ??? flunisolide HFA (AEROSPAN) 80 mcg/actuation inhaler Inhale 2 puffs 2 (two) times a day ??? fluticasone propion-salmeteroL (AIRDUO RESPICLICK) 55-14 mcg/actuation inhaler ??? omeprazole (PriLOSEC) 20 mg capsule Take 20 mg by mouth daily ??? [DISCONTINUED] medroxyPROGESTERone 150 mg/mL injection INJ 1 ML IM UTD No current facility-administered medications on file prior to visit. 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 She denies alcohol use or drug use. Family History Problem Relation Age of Onset ??? Arthritis Mother ??? Hypertension Mother ??? Diabetes Father ??? Hypertension Father ROS: Constitutional: Negative for fever and chills. HENT: Negative for neck pain. Eyes: Negative for change in vision. Respiratory: Negative for cough and shortness of breath. Cardiovascular: Negative for chest pain or pressure. PHYSICAL EXAM: Vitals Ht 165.1 cm (5' 5 ) Wt 77.1 kg (170 lb) BMI 28.29 kg/m?? General: Well appearing in no acute distress Chest: Normal work of breathing HEENT: Normocephalic, atraumatic Neuro: [...] light touch along the median nerve distribution as compared to the contralateral side. Sensationis intact to light touch along the radial and ulnar nerve distribution. STUDIES: EMG dated 05/10/2020 demonstrates bilateral carpal tunnel syndrome the motor latency of the left median nerve is 4.4 ms and the right median nerve is 4.9 ms. ASSESSMENT: Bilateral carpal tunnel syndrome. PLAN: 1. Surgical vs non-surgical options were discussed with the patient. Risk and benefits were described as well as a typical postoperative course. I discussed with her today that we can try night time splinting and bilateral carpal tunnel injections in order to improve her symptoms. The risks and benefits of the injections were discussed and include infection, pain, bleeding, risk to neurovascular structures, increase in blood glucose and incomplete resolution of symptoms. We also discussed that if she would like to try injections today it would be a minimum of 3 months before I would perform surgical release as corticosteroid increases the risk to surgical site infection. She expressed understanding and wished to proceed with the injections today. 2.. All questions are answered and she will follow up with me in 3 months time. Carpal Tunnel Injection Performed by: Josette Barnes MD Authorized by: Josette Barnes MD Carpal Tunnel Injection: Consent Given by: Patient Site marked: the procedure site was marked Timeout: prior to procedure the correct patient, procedure, and site was verified Verbal consent obtained?: Yes written consent obtained?: Yes Supporting Documentation: Indications: Therapeutic benefit Procedure Details: Condition: carpal tunnel Site: Bilateral carpal tunnel Prep: patient was prepped and draped in usual sterile fashion Needle Size: 25 G Ultrasound guided: No Medications Right Carpal Tunnel: 1 mL lidocaine 10 mg/mL (1 %); 40 mg triamcinolone 40 mg/mL Medications Left Carpal Tunnel: 1 mL lidocaine 10 mg/mL (1 %); 40 mg triamcinolone 40 mg/mL Patient tolerance: Patient tolerated the procedure well with no immediate complications PROCEDURE NOTE: After a discussion of the indications and risks, the site was confirmed with a formal timeout. Using aseptic technique the thumb was prepped and the carpal tunnel was topically anesthetized with Ethyl Chloride. Approximately 1.5 cc of a combination of Kenalog 40 milligram per cc and Lidocaine 1% without epineprine was instilled into the bilateral carpal tunnels. A sterile dressingwas applied and the patient tolerated it well. No adverse reactions were observed. Josette Barnes MD documented in this encounter Plan of Treatment Not on file documented as of this encounter Procedures Procedure Name Priority Date/Time Associated Diagnosis Comments ND INJECTION THERAPEUTIC CARPAL TUNNEL Routine 06/17/2020 10:00 AM CDT Carpal tunnel syndrome, bilateral documented in this encounter Results * ND INJECTION THERAPEUTIC CARPAL TUNNEL (06/17/2020 10:00 AM CDT) Narrative Josette Barnes MD - 06/17/2020 10:00 AM CDT Josette Barnes MD ? 06/20/2020 10:52 AM Carpal Tunnel Injection Performed by: Josette Barnes MD Authorized by: Josette Barnes MD Carpal Tunnel Injection: ??Consent Given by: ??Patient ??Site marked: the procedure site was marked ?Timeout: prior to procedure the correct patient, procedure, and site was verified ?Verbal consent obtained?: Yes ?written consent obtained?: Yes ?? Supporting Documentation: ??Indications: ??Therapeutic benefit Procedure Details: ??Condition: carpal tunnel ?Site: ??Bilateral carpal tunnel ??Prep: patient was prepped and draped in usual sterile fashion ?Needle Size: ??25 G ??Ultrasound guided: No ?Medications Right Carpal Tunnel: ??1 mL lidocaine 10 mg/mL (1 %); 40 mg triamcinolone 40 mg/mL ??Medications Left Carpal Tunnel: ??1 mL lidocaine 10 mg/mL (1 %); 40 mg triamcinolone 40 mg/mL ??Patient tolerance: ??Patient tolerated the procedure well with no immediate complications us Josette Barnes MD IN CLINIC/BEDSIDE ORDERAB LES Final Result documented in this encounter Visit Diagnoses Diagnosis Carpal tunnel syndrome, bilateral- Primary Carpal tunnel syndrome documented in this encounter Administered Medications Inactive Administered Medications - up to 3 most recent administrations Medication Order MAR Action Action Date Dose Rate Site lidocaine (XYLOCAINE) 10 mg/mL (1 %) injection 1 mL 1 mL, One-Time Injection, Starting on Sat06/17/20 at 1949, For 1 dose, Indications: Administration of Local AnesthesiaIndications:Administratio n of Local Anesthesia Given 06/17/2020 7:49 PM CDT 1 mL lidocaine (XYLOCAINE) 10 mg/mL (1 %) injection 1 mL 1 mL, One-Time Injection, Starting on Sat06/17/20 at 1949, For 1 dose, Indications: Administration of Local AnesthesiaIndications:Administratio n of Local Anesthesia Given 06/17/2020 7:49 PM CDT 1 mL triamcinolone (KENALOG) 40 mg/mL injection 40 mg 40 mg, intra-articular, One-Time Injection, Starting on Sat06/17/20 at 1949, For 1 doseIndications:Carpal tunnel syndrome, bilateral Given 06/17/2020 7:49 PM CDT 40 mg triamcinolone (KENALOG) 40 mg/mL injection 40 mg 40 mg, intra-articular, One-Time Injection, Starting on Sat06/17/20 at 1949, For 1 doseIndications:Carpal tunnel syndrome, bilateral Given 06/17/2020 7:49 PM CDT 40 mg documented in this encounter Discontinued Medications Medication Sig Discontinue Reason Start Date End Da te medroxyPROGESTERone 150 mg/mL injection INJ 1 ML IM UTD 04/06/2020 06/17/2020 documented as of this encounter Historical Medications * This list may reflect changes made after this encounter. Medication Sig Dispense Quantity Refills Last Filled Start D ate End Date fluticasone propion-salmeteroL (AIRDUO RESPICLICK) 55-14 mcg/actuation inhaler 06/09/2020 added in this encounter Care Teams Program Dir Relationship Specialty Start Date End Date Kendrick Chacon MD PCP - General 04/27/20 04/30/24 Kendrick Chacon MD Emergency Medicine 04/27/20 documented as of this encounter
--- OUTSIDE RECORDS SUMMARY | 2024-08-18 21:36 | XMS_ITS | Encounter Summary ---
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 Not on file Not on file documented as of this encounter Last Filed Vital Signs Vital Sign Reading Time Taken Comments Blood Pressure 125/74 10/11/2020 9:47 AM BEHAVIORAL HEALTH SPECIALIST Pulse 65 10/11/2020 9:47 AM BEHAVIORAL HEALTH SPECIALIST Temperature 36.7 ??C (98.1 ??F) 10/11/2020 9:47 AM CS T Respiratory Rate - - Oxygen Saturation 97% 10/11/2020 9:47 AM BEHAVIORAL HEALTH SPECIALIST Inhaled Oxygen Concentration - - Weight 77.1 kg (170 lb) 10/11/2020 9:47 AM BEHAVIORAL HEALTH SPECIALIST Height 165.1 cm (5' 5 ) 10/11/2020 9:47 AM BEHAVIORAL HEALTH SPECIALIST Body Mass Index 28.29 10/11/2020 9:47 AM BEHAVIORAL HEALTH SPECIALIST documented in this encounter Medications at Time [...] 09/12/2020 1 documented as of this encounter Discharge Disposition Disposition Code Departure Means Destination Discharge to home or self care documented in this encounter Plan of Treatment Not on file documented as of this encounter Visit Diagnoses Not on filedocumented in this encounter Care Teams Steel Pickler Relationship Specialty Start Date End Date Kendrick Chacon MD PCP - General 04/27/20 04/30/24 Kendrick Chacon MD Emergency Medicine 04/27/20 documented as of this encounter
--- OUTSIDE RECORDS SUMMARY | 2024-08-18 21:36 | XMS_ITS | Encounter Summary ---
Author Organization [facility] Address [address] [place] [address] Care Team Providers Care Cordwainer Name Role Phone Kendrick Chacon MD Primary Care Provider Kendrick Chacon MD Unavailable Reason for Referral * MRI/CAT/PET Scan (Routine) - Closed Specialty Diagnoses / Procedures Referred By Contac t Referred To Contact Radiology Diagnoses DDD (degenerative disc disease), lumbar Lumbar spondylosis Anterolisthesis Chronic bilateral low back pain without sciatica Procedures MRI Lumbar Spine WO Contrast Thelma Rosa NP [facility] [facility] [address] [place] [id number] Phone: tel: fax: [address] [phone] Referral ID Status Reason Start Date Expiration Date Visits Re quested Visits Authorized [id number] Closed 03/03/2021 04/02/2022 1 1 Reason for Visit * Reason Comments Pain Encounter Details Date Type Department Care Team (Late st Contact Info) Description 03/03/2021 9:00 AM CDT Office Visit [facility] Orthopedics and Sports Medicine [address] [place] [address] [address] [place] [id number] Thelma Rosa NP [facility] [address] [place] [id number] Chronic bilateral low back pain without sciatica; Lumbar facet anzeowxnqmo-S8-P1, L4-L5, L5-S1; Lumbar spondylosis; DDD (degenerative disc disease), lumbar-moderate/nasim re L5-S1; Anterolisthesis-grad e 1 L4 on L5 Social History Tobacco Use Types Packs/Day Years [...] 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 Not on file Not on file documented as of this encounter Last Filed Vital Signs Vital Sign Reading Time Taken Comments Blood Pressure - - Pulse - - Temperature - - Respiratory Rate - - Oxygen Saturation - - Inhaled Oxygen Concentration - - Weight 77.1 kg (170 lb) 03/03/2021 9:04 AM CDT Height 165.1 cm (5' 5 ) 03/03/2021 9:04 AM CDT Body Mass Index 28.29 03/03/2021 9:04 AM CDT documented in this encounter Ordered Prescriptions Prescription Sig Dispense Quantity Refills Last Filled Start Date End Date methocarbamoL (ROBAXIN) 500 mg tablet Take 1-2 tablets PO HS 60 tablet 03/03/2021 meloxicam (MOBIC) 7.5 mg tablet Take 1 tablet PO BID PRN 60 tablet 2 03/03/2021 1 documented in this encounter Progress Notes * Thelma Rosa NP - 03/03/2021 9:00 AM CDT Addendum March 17, 2021: Anat Phelan was notified by telephone regarding the results of her MRI of the lumbar spine which was completed March 15, 2021. Plan: 1. Referred to Dr. Gunnar Yadav, interventional pain management for further evaluation/treatment of her chronic lumbar pain symptoms. 2. If Anat's lumbar pain symptoms should persist after interventional pain management, then she should notify me at the orthopedic clinic and I can refer her to Neurosurgery. MRI lumbar spine March 15, 2021, findings per radiologist Dr. Nicholas Davalosr: FINDINGS: SEGMENTATION: No transitional anatomy. The lowest well-developed disc space is labeled L5-S1. ALIGNMENT: Normal. VERTEBRAE: No compression fracture or marrow replacement. DISC HEIGHT: Moderate to severe disc degeneration at L5-S1 with milder disc disease elsewhere in sparing at L4-5. HARDWARE: None in the spine. CORD/CAUDA: Terminates at L1 and is unremarkable. No cord tethering lesion is identified. LOWER THORACIC: No high-grade spinal canal stenosis or spinal cord compression. INDIVIDUAL DISC LEVELS: L1-2: Unremarkable. L2-3: Unremarkable. L3-4: Annular bulge and facet hypertrophy mildly narrows both foramina. L4-5: Facet arthropathy and ligamentous thickening mildly narrows the right foramen. L5-S1: Annular bulge and facet arthropathy without spinal canal or lateral recess stenosis. Tpgl-nd-kpziucgs bilateral foraminal narrowing. SACRUM: Visualized upper sacrum intact. VISUALIZED UPPER ABDOMEN: No significant abnormality. OTHER: No other significant findings. IMPRESSION: 1. Lumbar disc degeneration preferentially at L5-S1 with accompanying facet arthropathy. There is no resultant spinal canal stenosis. Foraminal narrowing at L3-4, L4-5 and L5-S1. 2. No lumbar spine compression fracture. Reason for Appointment 03/17/2021 1. Evaluation of chronic low back pain History of Present Illness: Anat Phelan is a 45 y.o. female arrived to the orthopedic department ambulatory, walking with no assisted devices. She is here today for evaluation of her lumbar pain symptoms. She reports currently having 7/10 stiffness, achiness, tightness sensation to the lower lumbar region. She has been doing home directed Vikas lumbar spine exercises since January 16, 2021 she had cortisone triggerpoint injections to the bilateral lower lumbar paraspinal region near L5 and the left gluteal region on January 16, 2021 which provided up to 80% reduction of back pain symptoms, but only lasting 3-4 weeks with return of her significant low back pain. Anat reported having worsening left-sided low back pain symptoms June 2020 with an unknown causes. 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 She developed increased low back pain symptoms worsened beginning of December 2020 and went to [place] [facility] January 02, 2021 where she was given Toradol IM which helped and prednisone p.o. which also helped. She was prescribed hydrocodone and tizanidine which she stopped because she felt it made her too loopy. She reports having laboratory studies ordered by her PMD, for ESR, RA, VASQUEZ which came back normal. She states that her mother has a history of RA and her sister has a history of lupus. Assessment: Diagnosis Plan 1. Chronic bilateral low back pain without sciatica MRI Lumbar Spine WO Contrast 2. Lumbar facet kybhcbwcssq-B7-[id number], L4-L5, L5-S1 3. Lumbar spondylosis MRI Lumbar Spine WO Contrast 4. DDD (degenerative disc disease), lumbar-moderate/severe L5-S1 MRI Lumbar Spine WO Contrast 5. Anterolisthesis-grade 1 L4 on L5 MRI Lumbar Spine WO Contrast Plan: ??? I have ordered an MRI of the lumbar spine. Reason for MRI of the lumbar spine: Continued low back pain increasing up to 03/11. Failed conservative treatment including the use of home directed lumbar exercises, use of ibuprofen, baclofen and she previously tried meloxicam and Robaxin. She was instructed follow up with me after she has completed the MRI of the lumbar spine. ??? I have ordered meloxicam 7.5 mg b.i.d. p.r.n. #60 with 2 refills ??? I have ordered Robaxin 500 mg 1-2 tablets PO HS p.r.n.#60 Imaging Reviewed: Lumbar spine??x-ray (6 view)??September 15, 2019??findings per radiologist Dr. Fraga??Brown: FINDINGS: ?? SEGMENTATION: ??Normal. ??No transitional anatomy. ?? ALIGNMENT: ??Mild levocurvature of the lumbar spine. ??Straightening of the normal lumbar lordosis.??Grade 1 degenerative anterolisthesis of L4 on L5. no significant change in alignment on flexion extension views. VERTEBRAE: ??No acute compression fracture. ??Mild anterior wedging of multiple lower thoracic vertebral bodies which is likely degenerative and chronic. Mild lower lumbar facet joint arthropathy. ?? DISCS: ??Mild L3-L4 and moderate to severe L5-S1 degenerative disc disease. HARDWARE: ??None in the spine. ?? OTHER: ??Cholecystectomy clips. IMPRESSION: ?? 1. Mild L3-L4 and moderate to severe L5-S1 degenerative disc disease. 2. Mild lower lumbar facet joint arthropathy. ?? 3. Grade 1 degenerative anterolisthesis of L4 on L5 without change on flexion extension views Examination: Ortho Exam Lumbar spine exam: ? Inspection of the lumbar spine shows mild levocurvature alignment, no surgical scars, no skin defects, no muscle atrophy, no masses, and no rashes. ?? Thoracic or lumbar spinous process pain. ??No pain with palpation ?? Lumbar paraspinal/facet pain. There??is??tenderness with palpation of the left??> right lowerlumbar paraspinal/facet region??greatest at L4-L5, L5-S1. There??is??increased lumbar pain with extension??and left??lateral bending. ?? Straight leg raise??produces negative??radicular leg pain ?? Wolff sign??produces negative??radicular leg pain with extension ?? Sensation??is??intact in the superficial peroneal nerve, deep peroneal nerve, sural, saphenous, and plantar nerves. ?? Deep tendon reflexes??of the patella and achilles 2+. ?? No??groin pain with logroll internal and external rotation of the hip. ? There??is??full strength with hip adduction, abduction and flexion of the hip with (100) degreesof hip flexion, (50) degrees of external rotation and (30) degrees of internal rotation. ? no??tenderness with palpation of the bilateral??greater trochanter. ?? full and equal??strength with knee extension, flexion, ankle dorsi and plantar flexion. ? No??pain on palpation or swelling of the calf concerning for deep vein thrombosis. ?? The lower extremities are warm and well perfused. 2+ dorsalis pedis pulses. Toes warm to touch with capillary refill <??2 seconds. GENERAL APPEARANCE: Well-nourished, in no acute distress NECK: Neck supple. No pain with palpation over the cervical or thoracic spinous process region SKIN: No??presence of lumbar erythema or ecchymosis. ??No presence of lumbar skin excoriation or rashes, good turgor, warm and dry, no suspicious lesions HEART:Regular rate LUNGS: Unlabored breathing ABDOMEN: Soft,no guarding MUSCULOSKELETAL:?See lumbar spine exam above. EXTREMITIES: Capillary refill < 2 seconds in nail beds, 2+ bilateral peripheral pulses, no edema NEUROLOGIC: Alert and oriented.?She walks independently with a stable gait with [...] mcg/actuation inhaler, , Disp: , Rfl: ??? omeprazole (PriLOSEC) 20 mg capsule, Take 20 mg by mouth daily, Disp: , Rfl: ??? terbinafine (LamISIL) 1 % cream, RENNY EXT AA BID, Disp: , Rfl: ??? tolterodine LA (DETROL LA) 4 mg 24 hr capsule, Take by mouth daily, Disp: , Rfl: ??? cyclobenzaprine (FLEXERIL) 10 mg tablet, Take 1 tab PO HS PRN, Disp: 90 tablet, Rfl: 0 ??? meloxicam (MOBIC) 7.5 mg tablet, Take 1 tablet PO BID PRN, Disp: 60 tablet, Rfl: 2 Past Medical History: Past Medical History: Diagnosis Date ??? Anterolisthesis L4 on L5, grade 1 ??? Asthma ??? DDD (degenerative disc disease), cervical ??? DDD (degenerative disc disease), lumbar ??? Depression ??? Gastric reflux ??? GERD (gastroesophageal reflux disease) ??? Lumbar spondylosis ??? Osteoarthritis of left AC (acromioclavicular) joint Past Surgical History: Past Surgical History: Procedure Laterality Date ??? CARPAL TUNNEL RELEASE Left 02/15/2021 ??? CARPAL TUNNEL RELEASE Right 10/11/2020 ??? SECTION ??? CHOLECYSTECTOMY ??? COLONOSCOPY ??? COLONOSCOPY W/ ENDOSCOPIC US ??? TONSILLECTOMY Social History: Social History Occupational History ??? 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 Smoking status: Current Every Day Smoker ??? Smokeless tobacco: Never Used Substance and Sexual Activity ??? Alcohol use: Never ??? Drug use: Never ??? Sexual activity: Not on file Vital Signs: Height 165.1 cm (5' 5 ), weight 77.1 kg (170 lb). BMI Readings from Last 1 Encounters: 03/03/21 28.29 kg/m?? Thelma Rosa NP documented in this encounter Plan of Treatment Not on file documented as of this encounter Results * MRI Lumbar Spine [...] without spinal canal or lateral recess stenosis. ??Hjni-js-pueedtzw bilateral foraminal narrowing. SACRUM: ??Visualized upper sacrum [...] D: ??03/15/2021 9:05 AM T: Report ID: [id number] Reading Location: ??[id number] Procedure Note Nicholas Young, - 03/15/2021 EXAM [...] arthropathy without spinal canal orlateral recess stenosis. Mpkp-in-jpxhpmng bilateral foraminal narrowing. SACRUM: Visualized upper sacrum [...] by Nicholas Young D.O. T: Report ID: [id number] Reading Location: [id number] Thelma Rosa HOUSE DETECTIVE IMG MRI PROCEDURES Final Re sult documented in this encounter Visit Diagnoses Diagnosis Chronic bilateral low back pain without sciatica Lumbar facet hncqztupqin-P0-T4, L4-L5, L5-S1 Spondylosis of unspecified site without mention of myelopathy Lumbar spondylosis Lumbosacral spondylosis without myelopathy DDD (degenerative disc disease), lumbar-moderate/severe L5-S1 Degeneration of lumbar or lumbosacral intervertebral disc Anterolisthesis-grade 1 L4 on L5 DDD (degenerative disc disease), lumbar-moderate/severe L5-S1 Degeneration of lumbar or lumbosacral intervertebral disc Lumbar spondylosis Lumbosacral spondylosis without myelopathy Anterolisthesis-grade 1 L4 on L5 Chronic bilateral low back pain without sciatica documented in this encounter Discontinued Medications Medication Sig Discontinue Reason Start Date End Da te methocarbamoL (ROBAXIN) 750 mg tablet Take 750 mg by mouth 3 (three) times a day as needed Alternate therapy 09/12/2020 03/03/2021 meloxicam (MOBIC) 7.5 mg tablet Take 7.5 mg by mouth 2 (two) times a day Alternate therapy 09/12/2020 03/03/2021 baclofen (LIORESAL) 10 mg tablet TAKE 1 TABLET BY MOUTH AT BEDTIME NEEDED Alternate therapy 02/10/2021 03/03/2021 ibuprofen (ADVIL,MOTRIN) 400 mg tablet Alternate therapy 09/05/2020 03/03/2021 documented as of this encounter Care Teams Cordwainer Relationship Specialty Start Date End Date Kendrick Chacon MD PCP - General 04/27/20 04/30/24 Kendrick Chacon MD Emergency Medicine 04/27/20 documented as of this encounter
--- OUTSIDE RECORDS SUMMARY | 2024-08-18 21:36 | XMS_ITS | Encounter Summary ---
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 ARRIVAL TIME OF 9:15 AM. Patient will not need to get COVID testing. Left detailed message for Patient. Asked for call backto confirm. [employer] documented in this encounter Plan of Treatment Not on file documented as of this encounter Visit Diagnoses Not on filedocumented in this encounter Care Teams Tube Coater Relationship Specialty Start Date End Date Kendrick Chacon MD PCP - General 04/27/20 04/30/24 Kendrick Chacon MD Emergency Medicine 04/27/20 documented as of this encounter
--- OUTSIDE RECORDS SUMMARY | 2024-08-18 21:36 | XMS_ITS | Encounter Summary ---
Author Organization [facility] Address [address] [place] [address] Care Team Providers Care Child Care Assistant Name Role Phone Kendrick Chacon MD Primary Care Provider [phone] Kendrick Chacon MD Unavailable Reason for Referral * Diagnostic Imaging (Routine) - Closed Specialty Diagnoses / Procedures Referred By Jessica t Referred To Contact Diagnoses Bilateral carpal tunnel syndrome Left hand pain Procedures XR Hand Left 3+ Vw Josette Barnes MD Phone: tel: fax: [address] [address] Referral ID Status Reason Start Date Expiration Date Visits Re quested Visits Authorized [id number] Closed 01/25/2021 02/24/2022 1 1 Encounter Details Date Type Department Care Team (Late st Contact Info) Description 01/26/2021 1:49 PM CDT Hospital Encounter [facility] INTERIM Josette Barnes MD [address] [place] [id number] Bilateral carpal tunnel syndrome; Left hand pain Social History Tobacco Use [...] 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 on file [...] daily 09/05/2020 baclofen (LIORESAL) 10 mg tablet Take 1 tablet PO HS PRN 30 tablet 01/16/2021 1 ibuprofen (ADVIL,MOTRIN) 400 mg tablet 09/05/2020 [...] Priority Date/Time Associated Diagnosis Comments XR HAND LEFT 3 OR MORE VIEWS Schedule Routine, Read Routine (OP Routine) 01/26/2021 1:51 PM CDT Bilateral carpal tunnel syndrome Left hand pain documented in this encounter Results * XR Hand Left 3+ Vw (01/26/2021 1:51 PM CDT) Anatomical Region Laterality Modality Upper Extremities, Hand Left Radiogra phic Imaging 01/27/2021 8:41 AM CDT Narrative 01/27/2021 8:42 AM CDT Patient Name: DANIEL PHELAN ?Ordering Dr: Josette Barnes MD ?? D.O.B: 1975 ? Exam Date: 01/26/21 ?? 1351 ?? Age: 45 ?Sex: Female ? MR#: [id number] ?? Loc: ? RADIOLOGY REPORT ?? Order #[id number] ?? Radiology ? Hand Left 3 View [...] 8:42 AM ?? T: ? Report ID: [id number] ?? Reading Location: ??[id number] ? REPORT ELECTRONICALLY SIGNED IN OTHER VENDOR SYSTEM ?? Resulting Agency Comment O Procedure Note Eh Chu MD - 01/27/2021 Patient Name: DANIEL PHELAN Dr: Josette Barnes MDO.B: 1975 Exam Date: 01/26/21 1351 Age: 45 Sex: Female [facility] [id number] Order #[id number] Radiology Hand Left 3 View Min Signed [...] by Eh Chu M.D. T: Report ID: [id number] Reading Location: [id number] REPORT ELECTRONICALLY SIGNED IN OTHER VENDOR SYSTEM Josette Barnes MD IMG XR PROCEDURES Final R esult documented in this encounter Visit Diagnoses Diagnosis Bilateral carpal tunnel syndrome Carpal tunnel syndrome Left hand pain Pain in soft tissues of limb documented in this encounter Care Teams Child Care Assistant Relationship Specialty Start Date End Date Kendrick Chacon MD PCP - General 04/27/20 04/30/24 Kendrick Chacon MD Emergency Medicine 04/27/20 documented as of this encounter
--- OUTSIDE RECORDS SUMMARY | 2024-08-18 21:36 | XMS_ITS | Encounter Summary ---
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 Patient states she had MRI done at [facility] on 05/11/20 and is scheduled with [facility] neurosurgeon for neck pain. Informed patient that she will be scheduled with Orthopedic Hand surgeon in a few weeks. Patient agreed. documented in this encounter Plan of Treatment Not on file documented as of this encounter Visit Diagnoses Not on filedocumented in this encounter Care Teams Transportation Operations Manager Relationship Specialty Start Date End Date Kendrick Chacon MD PCP - General 04/27/20 04/30/24 Kendrick Chacon MD Emergency Medicine 04/27/20 documented as of this encounter
--- OUTSIDE RECORDS SUMMARY | 2024-08-18 21:36 | XMS_ITS | Encounter Summary ---
Author Organization [facility] Address [address] [facility] [address] [place] [address] Care Team Providers Care Plastic Duplicator Name Role Phone Kendrick Chacon MD Primary Care Provider [phone] Kendrick Chacon MD Unavailable Reason for Referral * Procedure (Routine) - Closed Specialty Diagnoses / Procedures Referred By Contac t Referred To Contact Diagnoses Back pain Procedures Trigger Point Injection Thelma Rosa NP [address] [place] [address] Phone: tel: fax: [facility] Referral ID Status Reason Start Date Expiration Date Visits Re quested Visits Authorized [id number] Closed 01/16/2021 02/15/2022 1 1 * Procedure (Routine) - Closed Specialty Diagnoses / Procedures Referred By Contac t Referred To Contact Diagnoses Myalgia, other site Procedures Trigger Point Injection Thelma Rosa NP [facility] [place] [address] Phone: tel: fax: [facility] Medical [facility] Referral ID Status Reason Start Date Expiration Date Visits Re quested Visits Authorized [id number] Closed 01/16/2021 02/15/2022 1 1 Reason for Visit * Reason Comments Pain Encounter Details Date Type Department Care Team ([facility] Contact Info) Description 01/16/2021 2:00 PM CDT Office Visit [facility] Orthopedics and Sports Medicine [facility] [facility] [address] [place] [id number] Thelma Rosa, ANIMAL GENETICIST [address] [place] [address] [address] [place] [address] Lumbar spondylosis; DDD (degenerative disc disease), lumbar, [...] 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 Not on file Not on file documented as of this encounter Last Filed Vital Signs Vital Sign Reading Time Taken Comments Blood Pressure - - Pulse - - Temperature - - Respiratory Rate - - Oxygen Saturation - - Inhaled Oxygen Concentration - - Weight 77.1 kg (170 lb) 01/16/2021 2:09 PM CDT Height 165.1 cm (5' 5 ) 01/16/2021 2:09 PM CDT Body Mass Index 28.29 01/16/2021 2:09 PM CDT documented in this encounter Ordered Prescriptions Prescription Sig Dispense Quantity Refills Last Filled Start Date End Date baclofen (LIORESAL) 10 mg tablet Take 1 tablet PO HS PRN 30 tablet 01/16/2021 02/10/2021 documented in this encounter Progress Notes * Thelma Rosa, ANIMAL GENETICIST - 01/16/2021 2:00 PM CDTAssociated Order(s): Trigger Point Injection; Trigger Point Injection Post-Procedure Diagnose(s): Myalgia, other site Reason for Appointment: 1. Chronic low back pain, left > right History of Present Illness: Anat Phelan is a 45 y.o. female arrived to the orthopedic department ambulatory, walking with no assisted devices. She is here today for chief complaint of 6/10 constant lower lumbar achiness, throbbing type pain (left > right) with pain radiating into the left gluteal region with no radicular leg pain symptoms. Her pain symptoms are greatest with prolonged walking, prolonged standing, after changing positions from prolonged sitting to standing, prolonged bending to standing. She has also been experiencing some pain at rest. She denies bowel or bladder dysfunction and denies saddle anesthesia type symptoms. She currently uses ibuprofen. She previously tried meloxicam, Robaxin, t izanidine, prednisone p.o. and hydrocodone-acetaminophen. 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 Her last episode of increased low back pain symptoms worsened beginning of December 2020 and she states that she went to [facility] January 02, 2021 where she was given Toradol IM which helped and prednisone p.o. which also helped. She was prescribed hydrocodone and tizanidine which she stopped because she felt it made her too loopy. She did not complete the previously ordered outpatient physical therapy due to time constraints. She reports having laboratory studies ordered by her PMD, for ESR, RA, VASQUEZ which came back normal. She states that her mother has a history of RA and her sister has a history of lupus. Assessment: Diagnosis Plan 1. Lumbar spondylosis 2. DDD (degenerative disc disease), lumbar, moderate/severe L5-S1, mild L3-L4 3. Anterolisthesis-grade 1 L4 on L5 4. Myalgia, other site Plan: ??? Today I gave Anat axel trigger point injections using 2 mL 1% lidocaine without epi and 40 mg of methylprednisolone to each of the lower lumbar paraspinal region bilaterally near L5 and theleft gluteal region where there were focal areas of hyperirritability with palpation. ??? I provided Anat with Vikas back exercises with recommendations to do these exercises every morning and evening. ??? Today I prescribed baclofen 10 mg p.o. HS p.r.n. #30. She was instructed to stop other muscle relaxants (tizanidine, Robaxin) when using baclofen. She can continue to use OTC ibuprofen. ??? She has a follow-up appointment scheduled with me on February 27, 2021 for evaluation of her low back pain symptoms. Imaging Reviewed: Lumbar spine x-ray (6 view) September 15, [address] Flakito Bal: FINDINGS: ?? SEGMENTATION: ??Normal. ??No transitional anatomy. [...] 2. Mild lower lumbar facet joint arthropathy. ??Grade 1 degenerative anterolisthesis of L4 on L5 without change on flexion extension views Procedure: Trigger Point Injection Performed by: Thelma Rosa NP Authorized by: Thelma Rosa NP Trigger Point Injection: Consent Given by: Patient Site marked: the procedure site was marked Timeout: prior to procedure the correct patient, procedure, and site was verified Consent obtained:: Verbal Risks discussed, including, but not limited to:: Pain Alternatives discussed:: Alternative treatment Site/side marked: Yes Indications: Myalgia Procedure Details: Location: L lumbar paraspinal, R lumbar paraspinal and L gluteus alonzo Local anesthetic: Ethyl chloride spray Ultrasound guidance: No Needle size: 22 G Number of muscles: 3 or more Approach: Posterior 6 mL lidocaine 10 mg/mL (1 %); 120 mg methylPREDNISolone acetate 40 mg/mL Patient tolerance: Patient tolerated the procedure well with no immediate complications Trigger Point Injection Performed by: Thelma Rosa NP Authorized by: Thelma Rosa NP Trigger Point Injection: Consent Given by: Patient Site marked: the procedure site was marked Timeout: prior to procedure the correct patient, procedure, and site was verified Consent obtained:: Verbal Risks discussed, including, but not limited to:: Pain Alternatives discussed:: Alternative treatment Site/side marked: Yes Indications: Myalgia Procedure Details: Location: R gluteus medius Local anesthetic: Ethyl chloride spray Ultrasound guidance: No Needle size: 22 G Number of muscles: 1 or 2 Approach: Posterior 60 mg ketorolac 30 mg/mL (1 mL) Patient tolerance: Patient tolerated the procedure well with no immediate complications Examination: Ortho Exam Lumbar spine exam: ?? Inspection of the lumbar spine shows mild levocurvature alignment, no surgical scars, no skin defects, no muscle atrophy, no masses, and no rashes. ?? Thoracic or lumbar spinous process pain. No pain with palpation ?? Lumbar paraspinal/facet pain. There is tenderness with palpation of the left > right lower lumbar paraspinal region greatest Petty-5 and the left gluteal region ?? There is increased lumbar pain with extension and left lateral bending. ?? Referred pain to the left gluteal region ?? Straight leg raise produces negative radicular leg pain ?? Wolff sign produces negative radicular leg pain with extension ?? Sensation is intact in the superficial peroneal nerve, deep peroneal nerve, sural, saphenous, and plantar nerves. ?? Deep tendon reflexes of the patella and achilles 2+. ?? No groin pain with logroll internal and external rotation of the hip. ?? There is full strength with hip adduction, abduction and flexion of the hip with (100) degrees of hip flexion, (50) degrees of external rotation and (30) degrees of internal rotation. ?? no tenderness with palpation of the bilateral greater trochanter. ?? full and equal strength with knee extension, flexion, ankle dorsi and plantar flexion. ?? No pain on palpation or swelling of the [...] rate LUNGS: Unlabored breathing ABDOMEN: Soft,no guarding MUSCULOSKELETAL: [...] by mouth daily, Disp: , Rfl: ??? baclofen (LIORESAL) 10 mg tablet, Take 1 tablet PO HS PRN, Disp: 30 tablet, Rfl: 0 Past Medical History: Past Medical History: Diagnosis [...] History: Social History Occupational History ??? 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 Smoking status: Current Every Day Smoker ??? Smokeless tobacco: Never Used Substance and Sexual Activity ??? Alcohol use: Never ??? Drug use: Never ??? Sexual activity: Not on file Vital Signs: Height 165.1 cm (5' 5 ), weight 77.1 kg (170 lb). BMI Readings from Last 1 Encounters: 01/16/21 28.29 kg/m?? Thelma Rosa NP documented in this encounter Plan of Treatment Not on file documented as of this encounter Procedures Procedure Name Priority Date/Time Associated Diagnosis Comments PA INJECTION SINGLE/PEDIATRIC OCCUPATIONAL THERAPIST TRIGGER POINT 1/2 MUSCLES Routine 01/16/2021 2:00 PM CDT Myalgia, other site PA INJECTION SINGLE/PEDIATRIC OCCUPATIONAL THERAPIST TRIGGER POINT 3/> MUSCLES Routine 01/16/2021 2:00 PM CDT Myalgia, other site documented in this encounter Results * PA INJECTION SINGLE/PEDIATRIC OCCUPATIONAL THERAPIST TRIGGER POINT 1/2 MUSCLES (01/16/2021 2:00 PM CDT) Narrative Thelma Rosa NP - 01/16/2021 2:00 PM CDT Thelma Rosa NP ? 01/17/2021 ??6:05 PM Trigger Point Injection Performed by: Thelma Rosa NP Authorized by: Thelma Rosa NP Trigger Point Injection: ??Consent Given by: ??Patient ??Site marked: the procedure site was marked ?Timeout: prior to procedure the correct patient, procedure, and site was verified ?Consent obtained:: ??Verbal ??Risks discussed, including, but not limited to:: ??Pain ??Alternatives discussed:: ??Alternative treatment ??Site/side marked: Yes ?Indications: ??Myalgia Procedure Details: ??Location: ??R gluteus medius ??Local anesthetic: ??Ethyl chloride spray ??Ultrasound guidance: No ?Needle size: ??22 G ??Number of muscles: ??1 or 2 ??Approach: ??Posterior ?? 60 mg ketorolac 30 mg/mL (1 mL) ??Patient tolerance: ??Patient tolerated the procedure well with no immediate complications us Thelma Rosa ANIMAL GENETICIST IN CLINIC/BEDSIDE ORDERABLE S Final Result * PA INJECTION SINGLE/PEDIATRIC OCCUPATIONAL THERAPIST TRIGGER POINT 3/> MUSCLES (01/16/2021 2:00 PM CDT) Narrative Thelma Rosa NP - 01/16/2021 2:00 PM CDT Thelma Rosa NP ? 01/17/2021 ??6:05 PM Trigger Point Injection Performed by: Thelma Rosa NP Authorized by: Thelma Rosa NP Trigger Point Injection: ??Consent Given by: ??Patient ??Site marked: the procedure site was marked ?Timeout: prior to procedure the correct patient, procedure, and site was verified ?Consent obtained:: ??Verbal ??Risks discussed, including, but not limited to:: ??Pain ??Alternatives discussed:: ??Alternative treatment ??Site/side marked: Yes ?Indications: ??Myalgia Procedure Details: ??Location: ??L lumbar paraspinal, R lumbar paraspinal and L gluteus alonzo ??Local anesthetic: ??Ethyl chloride spray ??Ultrasound guidance: No ?Needle size: ??22 G ??Number of muscles: ??3 or more ??Approach: ??Posterior ?? 6 mL lidocaine 10 mg/mL (1 %); 120 mg methylPREDNISolone acetate 40 mg/mL ??Patient tolerance: ??Patient tolerated the procedure well with no immediate complications us Thelma Rosa ANIMAL GENETICIST IN CLINIC/BEDSIDE ORDERABLE S Final Result documented in this encounter Visit Diagnoses Diagnosis Lumbar spondylosis Lumbosacral spondylosis without myelopathy DDD (degenerative disc disease), lumbar, moderate/severe L5-S1, mild L3-L4 Degeneration of lumbar or lumbosacral intervertebral disc Anterolisthesis-grade 1 L4 on L5 Myalgia, other site documented in this encounter Administered Medications Inactive Administered Medications - up to 3 most recent administrations Medication Order MAR Action Action Date Dose Rate Site ketorolac (TORADOL) injection 60 mg 60 mg, One-Time Injection, Starting on Sat01/16/21 at 2126, For 1 doseIndications:Myalgia, other site Given 01/16/2021 9:26 PM CDT 60 mg lidocaine (XYLOCAINE) 10 mg/mL (1 %) injection 6 mL 6 mL, One-Time Injection, Starting on Sat01/16/21 at 1454, For 1 dose, Indications: Administration of Local AnesthesiaIndications:Administrati on of Local Anesthesia Given 01/16/2021 2:54 PM CDT 6 mL methylPREDNISolone acetate (DEPO-medrol) injection 120 mg 120 mg, intra-articular, One-Time Injection, Starting on Sat01/16/21 at 1454, For 1 doseIndications:Myalgia, other site Given 01/16/2021 2:54 PM CDT 120 mg documented in this encounter Care Teams Plastic Duplicator Relationship Specialty Start Date End Date Kendrick Chacon MD PCP - General 04/27/20 04/30/24 Kendrick Chacon MD Emergency Medicine 04/27/20 documented as of this encounter
--- OUTSIDE RECORDS SUMMARY | 2024-08-18 21:36 | XMS_ITS | Encounter Summary ---
Author Organization [facility] Address [address] [facility] [address] [place] [address] Care Team Providers Care Mangle Tender Cloth Name Role Phone Kendrick Chacon MD Primary Care Provider [phone] Kendrick Chacon MD Unavailable Reason for Visit * Reason Comments Post-op CTR 02/15/21 Encounter Details Date Type Department Care Team (Late st Contact Info) Description 02/27/2021 9:30 AM CDT Office Visit [facility] Hand Surgery [address] [facility] [address] [place] [address] Isabel Mike, [place] [address] [facility] [address] [address] Post-operative state (Primary Dx) Social History Tobacco Use Types [...] 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 Patient ID: Anat Phelan is a 45 y.o. female. Visit Date: 02/27/2021 Chief Complaint: Chief Complaint Patient presents with ??? Left Wrist - Post-op CTR 02/15/21 HPI: Patient is a 45-year-old [id number] female presents today for scheduled postoperative follow-up after left open carpal tunnel release on 02/15/2021. She is 2 weeks postop. She states that she has had improvement of her numbness and tingling. She also reports that her dressing became wet atsome point after the surgery, although she does not remember the date, and she has been wearing a re gular bandage over the wound. Physical Exam: General: A&O x 3, NAD, Well appearing Eyes: EOMs intact. PERRL. Integument: skin is warm and dry. Neuro: CN II-XII grossly intact. Pt gait is stable, balance WNL. Sensation intact. Cardiovascular: 2+ capillary refill to all upper digits bilaterally. Patient's surgical incision appears somewhat macerated. There is mild dehiscence at the center of the incision, and several stitches have come out. There is no drainage or surrounding edema or erythema. The wound is nontender. X-rays/Imaging: Assessment/Plan There are no diagnoses linked to this encounter. Treatment / Plan: Patient was also seen and examined today by Dr. Barnes. She recommends removing the remainder of thesutures, and applying Steri-Strips. I did fit her with a gel flex splint as well. Dr. Barnes would like patient to return in 1 week for wound check. I have emphasized to the patient that she needs to keep the wound dry until her follow-up appointment. I have asked her to call the office with any other questions or concerns. Procedures KATERINA Moser documented in this encounter Plan of Treatment Not on file documented as of this encounter Visit Diagnoses Diagnosis Post-operative state- Primary Other postprocedural status documented in this encounter Care Teams Mangle Tender Cloth Relationship Specialty Start Date End Date Kendrick Chacon MD PCP - General 04/27/20 04/30/24 Kendrick Chacon MD Emergency Medicine 04/27/20 documented as of this encounter
== END 2024-08-15 07:49 | disposition home or self-care (01) ==
LOC: ANHIMG 07:49
PROVIDERS: PCP Family Medicine; Visit Provider Family Medicine
DX: Z12.31 Encounter for screening mammogram for malignant neoplasm of breast (principal)
CPT/HCPCS: 77063; 77067

== ENCOUNTER 2024-11-05 09:18 | Outpatient (CLI) | payer OTHER, SELFPAY ==
--- NOTE | ~2024-11-05 | XR_ITS ---
EXAMINATION: XR lumbar spine 6V w bending DATE: 11/05/2024 09:53 INDICATION: Postlaminectomy syndrome, not elsewhere classified. TECHNIQUE: 7 views of the lumbar spine including flexion and extension views were obtained. COMPARISON: Lumbar spine radiographs 12/30/2023 FINDINGS: There is 10 degrees levoscoliosis of lumbar spine. There is mild chronic anterior wedging o f T12 and L1 vertebral bodies. There is mildly decreased disc height at L2-L3, moderately decreased d isc height at L3-L4, and severely decreased disc height at L5-S1. There is multilevel facet joint ost eoarthritis, severe on the right at L4-L5 and bilaterally at L5-S1. Surgical clips in the right upper quadrant are likely from cholecystectomy. IMPRESSION: 1. Severe lumbar spondylosis. 2. Lumbar levoscoliosis. Reviewed, dictated and finalized at location A. IT PORTFOLIO ADVISOR
--- NOTE | ~2024-11-05 | XR_ITS ---
EXAMINATION: XR sacroiliac joints min 3V DATE: 11/05/2024 09:52 INDICATION: Sacroiliitis, not elsewhere classified. TECHNIQUE: 3 views of the sacroiliac joints were obtained. COMPARISON: None. FINDINGS: There is lumbar levocurvature. No fracture. There is mild osteoarthritis of the sacroiliac joints. IMPRESSION: 1. Mild osteoarthritis of the sacroiliac joints. Reviewed, dictated and finalized at location A. [facility]
--- NOTE | ~2024-11-05 | XR_ITS ---
EXAMINATION: XR hip BI 2V w AP pelvis DATE: 11/05/2024 09:52 INDICATION: Pain in unspecified hip. TECHNIQUE: An anteroposterior view of the pelvis and 2 views of each hip were obtained. COMPARISON: None. FINDINGS: There is lumbar levocurvature and mild spondylosis. No fracture. There is mild right hip os teoarthritis characterized by tiny osteophytes. Left hip joint space is normal. IMPRESSION: 1. Mild right hip osteoarthritis. Reviewed, dictated and finalized at location A. G[facility] RESEARCHER
--- OUTSIDE RECORDS SUMMARY | 2024-11-05 10:12 | XMS_ITS | Clinical Summary ---
Author Organization [facility] Address [address] [place] [address] Care Team Providers Care Blade Grinder Name Role Phone Kendrick Chacon MD Primary Care Provider [phone] Source Comments [facility],non-owned Affiliates and Associated Physician Practices is amultiple site organization consisting of ambulatory clinics and hospital sitesin [place], [place] and [place]. This disclosure is being madepursuant to the Care Everywhere program and may not contain all information available regarding this patient. Last updated 18.[facility] Allergies No known active allergies Medications * [...] Active vitamin D, ergocalciferol, (DRISDOL) 1.25 MG (55106 UT) capsule TAKE 1 CAPSULE BY MOUTH [...] 82 04/18/2021 3:49 PM CDT Temperature 36.8 C (98.2 F) 04/18/2021 3:49 PM CDT Respiratory Rate 16 01/01/2017 7:39 PM CDT [...] TESTING 1976 MAMMOGRAM 1976 PAP SMEAR 1976 HIV SCREENING 1991 HEPATITIS C SCREENING 07/25/1994 DTAP/TDAP/TD VACCINES (1 - Tdap) 1995 HEPATITIS B VACCINE (1 of 3 - 19+ 3-dose series) 1995 PNEUMOCOCCAL VACCINE (1 of 2 - PCV) 1995 SCREENING FOR DIABETES 06/15/2020 COVID-19 VACCINE (1 - 2023-2 5 season) 2024 INFLUENZA VACCINE (#1) 2024 DEPRESSION SCREENING 09/02/2024 ZOSTER VACCINE (1 of 2) 2026 HIB VACCINE Aged Out No longer eligi ble based on patient's age to complete this topic HPV VACCINE Aged Out No longer eligi ble based on patient's age to complete this topic MENINGOCOCCAL (Group B) VACCINE Aged Out No longer eligible based on patient's age to complete this topic MENINGOCOCCAL VACCINE Aged Out No gilles antonio eligible based on patient's age to complete this topic Advance Directives Documents on File Type Date Recorded Patient Mailing 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
--- OUTSIDE RECORDS SUMMARY | 2024-11-05 10:13 | XMS_ITS | Clinical Summary ---
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 Not on file Obstetrics History Last Filed Vital Signs Vital Sign Reading Time Taken Comments Blood Pressure 135/81 07/15/2024 10:44 AM [facility] Pulse 70 07/15/2024 10:44 AM [facility] Temperature 36.7 C (98 F) 07/15/2024 10:44 AM [facility] Respiratory Rate 18 05/10/2021 3:55 PM CDT Oxygen Saturation 97% 05/10/2021 3:55 PM CDT Inhaled Oxygen Concentration - - Weight 88 kg (194 lb) 07/15/2024 10:44 AM [facility] Height 165.1 cm (5' 5 ) 07/15/2024 10:44 AM [facility] Body Mass Index 32.28 07/15/2024 10:44 AM [facility] Plan of Treatment Health Maintenance Due Date Last Done Comments Breast Cancer Screening-Mammogram 1976 Cervical Cancer Screening 1976 Colon Cancer Screening-Colonoscopy 1976 Depression Screening 1976 Regular Well Visit/Exam 18-64 1994 Pneumococcal vaccine <65 (1 of 2 - PCV) 1995 Zoster Vaccine (1 of 2) 1995 Influenza Vaccine (#1) 2024 DTaP/Tdap/Td Vaccine (3 - Td or Tdap) 02/22/2027 02/22/2017, 07/18/2015, 11/12/2005 Hepatitis B Screening Completed 05/27/2006 , 12/20/2005, 11/12/2005 Hepatitis C Screening Completed 07/15/2024 Procedures Procedure Name Priority Date/Time Associated Diagnosis Comments HEPATITIS C ANTIBODY Routine 07/15/2024 12:49 PM [facility] Effusion of joint, unspecified location Arthralgia, unspecified joint from Last 3 Months or Most Recently Relevant to Health Maintenance Results * Hepatitis C antibody Blood (07/15/2024 12:49 PM [facility]) Hep C Ab Nonreactive Nonreactive Comment:Antibodies to HCV no t detected. Does NOT exclude the possibility of recent exposure to HCV. Current interpretive data was last revised on 22 Blood 07/15/2024 12:4 9 PM [facility] 07/15/2024 1:25 PM [facility] us Jessie Sherwood MD LAB MICROBIOLOGY - GENERAL ORDERABLES Final Result [facility] Department [place] [address] from Last 3 Months or Most Recently Relevant to Health Maintenance [place] [address] [place] [address] [facility] Care Teams Antenna Machine Operator Relationship Specialty Start Date End Date Keven Gonzalez DO [address] [place] [id number] PCP - General Family Medicine 05/29/24 Kendrick Chacon MD Emergency Medicine 04/27/20 Edy Yadav MD [address] [facility] [place] [address] Consulting Physician Pain Management 04/28/21
--- OUTSIDE RECORDS SUMMARY | 2024-11-05 10:13 | XMS_ITS | Referral Summary ---
Author Organization [facility] Address [address] [address] Care Team Providers Care Jewel Stripper Name Role Phone Kendrick Chacon MD Primary Care Provider Source Comments [facility],non-owned Affiliates and Associated Physician Practices is amultiple site organization consisting of ambulatory clinics and hospital sitesin [place], [place], [place] and [place]. This disclosure is being madepursuant to the Care Everywhere program and may not contain all information available regarding this patient. Last updated 18.[facility] Allergies No known active allergies Medications * [...] Active vitamin D, ergocalciferol, (DRISDOL) 1.25 MG (40580 UT) capsule TAKE 1 CAPSULE BY MOUTH [...] Documents on File Type Date Recorded Patient System Planning Engineer Expl anation Adv Directive/Living Will/POA 01/01/2017 * Full Code (Latest Code Status on File) Date Activated Date Inactivated Comments 01/01/2017 7:27 PM 01/01/2017 9:50 PM Care Teams Jewel Stripper Relationship Specialty Start Date End Date Kendrick Chacon MD [facility] [address] [address] PCP - General 04/03/21
--- OUTSIDE RECORDS SUMMARY | 2024-11-05 10:13 | XMS_ITS | CONTINUITY OF CARE DOCUMENT ---
Author Name ramakrishna neojeane Address Unknown Organization [facility] Address [address] [place] [address] [address] [place] [address] Phone [phone] Care Team Providers Care Provider Scribe Name Role Phone Shavonne Parkinson MD Unavailable CHARLOTTE DOWD MD Unavailable [phone] CHARLOTTE DOWD MD Unavailable [phone] PROBLEMS Condition Status Date Provider Notes Tremor active Shavonne Parkinson MD Pulmonary embolism active Shavonne Parkinson MD Cardiology examination active Shavonne mensah MD ENCOUNTERS Date Type Provider Location Encounter Diag nosis - In-person encounter Office Visit Shavonne Parkinson MD [facility] Cardiology examinationPulmonary embolismTremor VITAL SIGNS Date Observation Value Provider Body Mass Index (Ratio) 32.95 kg/m2 Harry as Luis blood pressure, diastolic 78 mm[Hg] Li nkLogic [...] CAPSULE BY MOUTH TWICE DAILY DIRECTED Michelle Panad clonazepam 0.5 mg tablet active TAKE 1 [...] TABLET BY MOUTH EVERY 12 HOURS Michelle Panda albuterol sulfate 90 mcg/actuation HFA aerosol inhaler [...] Policy type / Coverage type [employer] MEDICAID (2) Medicaid [id number] ADVANCE DIRECTIVES Name Date DISCUSSED - NO [...] is normal. Shavonne Parkinson MD Cardiology:03/25/24 1644 [facility] MPRESSION: 1 . Pulmonary embolism with multiple [...]
--- OUTSIDE RECORDS SUMMARY | 2024-11-05 10:13 | XMS_ITS | Data Portability ---
Author Organization [facility] [email or web address], Main Office Address [address] [place] [address] Assessment Encounter Date Assessment Date Assessment LastModified [...] per schedule. Cont f/u with Psych at [facility] as per schedule. Cont f/u with Gyne at [facility] as per schedule. HM: WWE - 06/23, normal as per pt. Cont f/u with Gyne as per schedule. Mammo - 2 yrs ago. Ordered. Colonoscopy - Referred to GI. Flu - Pt declined. Tdap, Pneumo, Shingrix - At pharmacy/HD. F/u in 2 months. Lipids in 01/23. Annual labs in 06/25. Not available 10/24/2023 10:42:23 03/12/2024 03/12/2024 48 [...] Pt will be calling her Pulmo at [facility] and see if she can be seen sooner. Pt declined for referral to Cardio. All meds verified with pt. Lyman 5/325 # 40 given today until she can see Sample Maker. Meds as directed. Good liquid and fiber intake explained. Diet and exercise explained in detail. BP diary education given and call us if any concerns. F/u with PT as per schedule. F/u with GI as per schedule. Cont f/u with Pulmo at [facility] as per schedule. Cont f/u with Psych at [facility] as per schedule. Cont f/u with Gyne at [facility] as per schedule. HM: WWE - 06/23, normal as per pt. Cont f/u with Gyne as per schedule. Mammo - 2 yrs ago. Ordered. Colonoscopy - Referred to GI. Flu - Pt declined. Tdap, Pneumo, Shingrix - At pharmacy/HD. F/u in 1 month. Lipids before next visit. Annual labs in 06/25. [email or web address] Not available 03/12/2024 11:09:21 03/31/2024 03/31/2024 48 [...] be seeing her Pulmo on 04/08/24 at [facility]. Will refer pt to Cardio, Pain clinic. [...] per schedule. Cont f/u with Pulmo at [facility] as per schedule. Cont f/u with Psych at [facility] as per schedule. Cont f/u with Gyne at [facility] as per schedule. HM: WWE - 06/23, normal as per pt. Cont f/u with Gyne as per schedule. Mammo - 2 yrs ago. Ordered. Colonoscopy - Referred to GI. Cologuard ordered. Flu - Pt declined. Tdap, Pneumo, Shingrix - At pharmacy/HD. F/u in 1-2 months. Annual labs in 06/25. [email or web address] Not available 03/31/2024 16:12:56 04/09/2024 04/09/2024 48 [...] per schedule. Cont f/u with Pulmo at [facility] as per schedule. Cont f/u with Psych at [facility] as per schedule. Cont f/u with Gyne at [facility] as per schedule. Educated pt about alarming [...] F/u as directed. Annual labs in 06/25. [email or web address] Not available 04/09/2024 14:37:51 Plan of Treatment Reminders Order Date Submit Date Provider Last Modified By Organization Details Last Modified Time Details Appointments None recorded. Lab noninvasive colorectal cancer DNA + occult blood screening, QL, stool 2023 024 [facility] (Cologuard Orders Only), [address], [address], [place], [address], 17:19:08 lipid panel, serum [address] (Lab), [address] [place], [address], 4 08:11:23 lipid panel, serum [address] (Lab), [address] [place], [address], 4 08:30:44 Referral neurologist referral - Please call patient to schedule an appointment . Thank you. 2023 024 [email or web address] [facility] - Neurology, [address] [facility], [place], [address], 4 08:52:35 cardiologis t referral - Please call patient to schedule an appointment . Thank you. 2023 024 [email or web address] [facility] Heart And Vascular Referral Fax Line, [address] [facility], [facility] [address], [place], [address], 4 07:47:52 pain management referral - Please call patient to schedule an appointment . Thank you. 2023 024 [email or web address] [facility] Pain Management, [address] [facility] [address], [place], [address], 4 07:46:41 hematologis t referral - Multiple PEs, ex-smoker. Please call patient to schedule an appointment . Thank you. 2023 024 [email or web address] Matthew Ungernti , [address] [place], [address], 4 08:54:02 gastroenter ologist referral - Patient has new onset intussuscep tion , found on CT 01/21, not present on CT 12/12. Diverticulo sis. Please call patient to schedule an appointment . Thank you. 2023 [email or web address] [facility] Gastroenterol ogy, [address], [address], [place], [address], 4 08:51:43 gastroenter ologist referral - Please call patient to schedule an appointment . 2023 024 [email or web address] Brenden Carlson MD, [address] [facility], [address], [place], [address], 4 08:35:15 Procedures None recorded. Surgeries None recorded. Imaging XR, hand, 3 or more view 2023 024 [email or web address] Not available 09:04:28 Medication Orders ipratropium 0.5 mg-albutero l 3 mg (2.5 mg base)/3 mL nebulizatio n soln 2023 [facility]46988, [address], [place], [id number], 4 12:05:29 albuterol sulfate HFA 90 mcg/actuati on aerosol inhaler 2023 024 [facility] #03275, [address], [place], [place], [id number], 4 12:05:29 furosemide 20 mg tablet 2023 [facility] #27503, [address], [place], [place], [id number], 4 12:05:30 omeprazole 40 mg capsule,del ayed release 2023 [facility] #07685, [address], [place], [place], [id number], 4 12:05:30 famotidine 40 mg tablet 2023 [facility] #55452, [address], [place], [place], [id number], 4 12:05:29 atorvastati n 10 mg tablet 2023 [facility] #59830, [address], [place], [place], [id number], 4 12:05:33 ipratropium 0.5 mg-albutero l 3 mg (2.5 mg base)/3 mL nebulizatio n soln 2023 024 [facility] #58460, [address], [place], [place], [id number], 4 16:00:21 Eliquis 5 mg tablet 2023 024 [facility] #52960, [address], [place], [place], [id number], 4 16:00:24 albuterol sulfate HFA 90 mcg/actuati on aerosol inhaler 2023 024 [facility] #02259, [address] [facility], [place], [place], [id number], 4 16:00:26 furosemide 20 mg tablet 2023 024 [facility] #70072, [address] [facility], [place], [place], [id number], 4 16:00:26 gabapentin 600 mg tablet 2023 024 [facility] #07937, [address] [facility], [place], [place], [id number], 4 16:00:23 baclofen 20 mg tablet 2023 024 [facility] #96897, [address] [facility], [place], [place], [id number], 4 16:00:31 atorvastati n 10 mg tablet 2023 024 [facility] #90703, [address] [facility], [place], [place], [id number], 4 16:00:27 ergocalcife rol (vitamin D2) 1,250 mcg (50,000 unit) capsule 2023 024 [facility] #91768, [address] [facility], [place], [place], [id number], 4 16:00:29 omeprazole 40 mg capsule,del ayed release 2023 024 [facility] #77160, [address] [facility], [place], [id number], 4 16:00:27 famotidine 40 mg tablet 2023 024 [facility] #73933, [address], [place], [place], [id number], 4 16:00:21 ipratropium 0.5 mg-albutero l 3 mg (2.5 mg base)/3 mL nebulizatio n soln 2023 024 [facility] #27978, [address], [place], [place], [id number], 4 10:22:20 Eliquis 5 mg tablet 2023 024 [facility] #07399, [address] [facility], [place], [place], [id number], 4 10:22:22 hydrocodone 5 mg-acetamin ophen 325 mg tablet 2023 024 [facility] #84610, [address] [facility], [place], [place], [id number], 4 10:22:59 albuterol sulfate HFA 90 mcg/actuati on aerosol inhaler 2023 024 [facility] #27572, [address] [facility], [place], [place], [id number], 4 10:23:13 furosemide 20 mg tablet 2023 024 [facility] #17001, [address] [facility], [place], [place], [id number], 4 10:46:07 atorvastati n 10 mg tablet 2023 024 [facility] #34595, [address] [facility], [place], [place], [id number], 4 10:22:22 gabapentin 300 mg capsule [email or web address] [facility] [address] [facility]10327, [address] [facility], [place], [place], [id number], 4 16:01:49 ergocalcife rol (vitamin D2) 1,250 mcg (50,000 unit) capsule 2023 [facility] #62362, [address] [facility], [place], [place], [id number], 4 10:22:22 omeprazole 40 mg capsule,del ayed release 2023 [facility] #82104, [address] [facility], [place], [place], [id number], 4 10:22:24 famotidine 40 mg tablet 2023 024 [facility] #29743, [address] [facility], [place], [place], [id number], 4 10:22:21 docusate sodium 100 mg capsule 2023 024 [facility] #82973, [address] [facility], [place], [place], [id number], 4 14:26:23 phentermine 37.5 mg tablet [email or web address] [facility] [address] [facility] #25516, [address] [facility], [place], [place], [id number], 4 10:13:02 diclofenac sodium 75 mg tablet,tarsha yed release 2023 024 [facility] #53595, [address] [facility], [place], [place], [id number], 4 10:36:23 atorvastati n 10 mg tablet 02/2023 [facility] #39184, [address] [facility], [place], [place], [id number], 4 10:32:43 phentermine 37.5 mg tablet 2023 [email or web address] [facility] #45022, [address] [facility], [place], [place], [id number], 4 10:13:02 ergocalcife rol (vitamin D2) 1,250 mcg (50,000 unit) capsule 2023 [facility] #38979, [address] [facility], [place], [place], [id number], 4 10:32:39 omeprazole 40 mg capsule,del ayed release 2023 [facility] #97167, [address] [facility], [place], [place], [id number], 4 10:32:40 famotidine 40 mg tablet 2023 [facility] #90450, [address] [facility], [place], [place], [id number], 4 10:32:42 Patient TargetsNo targets recorded. Patient Instructions Encounter Date Encounter Id Patient Instructions Last Modified By Organization Details Last Modified Time 10/24/2023 [id number] learning about obesity [email or web address] Not available 10/24/2023 10:32:32 03/12/2024 [id number] learning about obesity [email or web address] Not available 03/12/2024 10:22:13 Thank you for [...] homebound status}} Required Home Health Services: {{none senior living, physical therapy, occupational therapy senior living, physical therapy senior living}} Durable Medical Equipment needed: {{cane walker wal ker with seat manual wheelchair bedsid e commode oxygen}} Billing Guidelines CPT code 97836- Transitional Care Management services with moderate medical decision complexity (oyri-mh-kobp visit within 14 days of discharge). CPT code 40182- Transitional Care Management services with high medical decision complexity (wsay-bo-gize visit within 7 days of discharge). Not available 03/12/2024 09:52:22 03/31/2024 [id number] learning about obesity [email or web address] Not available 03/31/2024 16:00:11 Thank you for [...] to discuss. Not available 03/31/2024 15:42:48 04/09/2024 [id number] Thank you for your visit to our [...] Not available 04/09/2024 11:46:58 Reason for Referral Problem Manager Referral for Screening colonoscopy Please call patient to schedule an appointment. Referring Physician: Ang Patterson [facility], Encounter Date: 10/24/2023 Problem Manager Referral for Intussusception of small intestine Patient has new onset intussusception , found on CT 01/21, not present on CT 12/12. Diverticulosis. Please call patient to schedule an appointment. Thank you. Referring Physician: Janneth Rogers [facility], Encounter Date: 01/29/2024 Multiple PEs, ex-smoker. Ple ase call patient to schedule an appointment. Thank you. Referring Physician: Ang Patterson [facility], Encounter Date: 03/12/2024 Pain Management Referral for Cervical spondylosis without myelopathy Please call patient to schedule an appointment. Thank you. Referring Physician: Ang Patterson [facility], Encounter Date: 03/31/2024 Junior Graphic Designer Referral for Dy spnea on exertion Please call patient to schedule an appointment. Thank you. Referring Physician: Ang Patterson [facility], Encounter Date: 03/31/2024 Neurologist Referral for Kory mor B/l UE tremors for last 1-2 weeks. Please call patient to schedule an appointment. Thank you. Referring Physician: Ang Patterson [facility], Encounter Date: 04/09/2024 Results Created Date Observation Date Name Description Value Unit Range Abnormal Flag Note LastModifiedBy Organization Detail LastModifiedTime 10/01/19 24 10/02/2023 HELIC OBACT ER PYLOR I AG, EIA, STOOL helicobacter pylori Ag, EIA, stool SEE NOTE HELIC OBACT ER PYLOR I AG, EIA, STOOL Micro Numbe r: [id number] Test Statu s: Final Speci men [...] Range : Not Detec leti Not Available [email or web address] [facility] [address], [place], [address], 10/02/2023 13:18:31 04/07/20 24 04/07/2024 COLOG UARD cologuard result reportable NEGATI VE negati ve normal NEGAT JAMEY TEST RESUL T. A negat jamey Colog uard resul t indic ates a low likel ihood that a color ectal cance r (CRC) or advan james adeno ma (colton omato us polyp s with more advan james pre-m align ant featu res) is prese nt. The [facility] e that a perso n with a [...] of 10,00 0 indiv idual s at [place] risk for color ectal cance r who were scree harmeet with both Colog uard and colon oscop y. (Shama Ness. et al, N Engl J Med 2014; 370(1 4):12 86-12 97) The sharan l value (refe rence range ) for this assay is negat jamey. COLOG UARD RE-SC REENI NG RECOM MENDA TION: Perio dic color ectal cance r scree audra is an impor tant part of preve ntive healt hcare for asymp tomat ic indiv idual s at [facility] risk for color ectal cance r. Follo wing a negat jamey Colog uard resul t, the Ameri can Cance r Socie ty and U.S. Multi -Soci ety Task Force scree audra guide lines recom mend a Colog uard re-sc tyaler ng inter mar[place] of 3 years . Refer ences : Ameri can Cance r Socie ty Guide line for Color ectal Cance r Scree audra: https ://ww w.can cer.o rg/ca ncer/ colon -rect al-ca ncer/ detec tion- diagn osis- stagi ng/ac s-rec ommen datio ns.ht ml.; Scott RENEE, Henna CASTILLO, Marely TRAORE, Color ectal Cance r Scree audra: Recom menda tions for Physi cians and Patie nts from the U.S. Multi -Soci ety Task Force on Color ectal Cance r Scree audra , Lisa kramer y 2017; 112:1 016-1 030. TEST DESCR IPTIO N: [place] site algor ithmi c genesis sis of stool DNA-b iomar kers with hemog lobin immun oassa y. Quant itati ve value s of indiv idual bioma rkers are not repor table and are not assoc iated with indiv idual bioma rker resul t refer ence range s. Colog uard is inten ded for color ectal cance r scree audra of adult s of eithe r sex, 45 years or older , who are at [facility] for color ectal cance r (CRC) . Colog uard has been appro rohan for use by the U.S. FDA. The perfo rmanc e of Colog uard was estab lishe d in a cross secti onal study of [facility] adult s aged 50-84 . Colog uard perfo rmanc e in patie nts ages 45 to 49 years was estim ated by sub-g roup genesis sis of near- age group s. Colon oscop ies perfo rmed for a posit jamey resul t may find as the most clini ayana signi fican t lesio n: color ectal cance r [...] study of 0 indiv idual s at [facility] risk for color ectal cance r who were scree harmeet with both Colog uard and colon oscop y. (Shama warner T. et al, N Engl J Med 2014; [...] d can [facility]es sed [facility] locat ion: www.e xactl abs.c om/re deborah . Addit ional descr iptio n of the Colog uard test proce ss, warni ngs and preca ution s can be found at www.c lyssaogabel thomasd.c om. Not Available [facility] (Cologuard Orders Only) [address], [place], [address], 04/11/2024 17:19:08 12/13/19 24 12/13/2023 CT, abdom en + pelvi s, w/ contr ast No observ ation record ed. [address], [place], [address], 12/23/2023 09:42:22 12/30/19 24 12/30/2023 CT, cervi bimal spine , w/o contr ast No observ ation record ed. [address], [place], [address], 12/30/2023 14:14:10 12/30/19 24 12/30/2023 XR, lumbo sacra l spine , 2 or 3 view No observ ation record ed. [email or web address] [address], [place], [address], 12/30/2023 14:14:21 01/22/20 24 01/22/2024 XR, chest No observ ation record ed. [address] [address], [place], [address], 01/22/2024 11:16:05 01/22/20 24 01/22/2024 LDCT, chest , for lung cance r scree audra No observ ation record ed. [address] [facility], [place], [address], 01/22/2024 17:06:54 01/22/20 24 01/22/2024 CT, angio gram, chest , w/ contr ast No observ ation record ed. [address] [facility], [place], [address], 03/12/2024 11:08:31 02/24/20 24 02/24/2024 US, doppl er echoc ardio gram No observ ation record ed. [address] [address], [place], [address], 03/12/2024 10:02:16 03/25/20 24 03/25/2024 XR, chest , 2 view No observ ation record ed. [address] [facility], [place], [address], 03/31/2024 15:49:25 03/25/20 24 03/25/2024 CT, angio gram, chest , w/ contr ast No observ ation record ed. [address], [place], [address], 03/31/2024 15:49:25 04/02/20 24 04/02/2024 CT, brain , w/o contr ast No observ ation record ed. [address], [place], [address], 04/09/2024 11:57:47 04/02/20 24 04/02/2024 XR, chest No observ ation record ed. [address], [place], [address], 04/09/2024 11:57:47 04/29/20 24 04/08/2024 imagi ng/di agnos tic resul t No observ ation record ed. [address], [place], [address], 04/29/2024 09:51:53 Result Notes None recorded. Problems Name Problem SNOMED Code Status Onset Date Resolution Date Notes Provider Name and Address Organization Details Recorded Time Depressive disorder 99320385 Active 2022 Ang Patterson MD [address], [place], [address], [employer] 3 15:00:33 Anxiety disorder 352253844 Active 2022 Ang Patterson MD [address], [place], [address], [employer] 3 15:00:39 Posttraumat ic stress disorder 43597647 Active 2022 Ang Patterson MD [address], [place], [address], [employer] 3 15:00:45 Obesity 604383388 Active 2022 Ang Patterson MD [address], [place], [address], [employer] 3 15:01:02 Chronic neck pain 9475961945703 Active 2022 Ang Patterson MD [address], [address], [place], [address], [employer] 3 15:03:12 Chronic low back pain 281315455 Active 2022 Ang Patterson MD [address], [place], [address], [employer] 3 15:03:20 Cervical spondylosis without myelopathy 045570498 Active 2022 Ang Patterson MD [address], [address], [place], [address], [employer] 3 15:17:42 Ex-smoker 1039142 Active 2022 Ang Patterson MD [address], [address], [place], [address], [employer] 3 15:17:55 Degeneratio n of cervical interverteb ral disc 10697947 Active 2022 Ang Patterson MD [address], [place], [address], [email or web address] 3 14:38:13 Otalgia of right ear 5612235446 Active 2022 Ang Patterson MD [address], [place], [address], [employer] 3 09:56:32 Chronic idiopathic constipatio n 65901127 Active 2022 Ang Patterson MD [address], [place], [address], [employer] 3 09:58:26 Gastroesoph ageal reflux disease without esophagitis 098583195 Active 2022 Ang Patterson MD [address], [place], [address], [facility] [employer] [facility] 3 09:59:58 Xerostomia 87637958 Active 2022 Ang Patterson MD [address], [place], [address], [facility] [employer] [facility] [employer] [facility] 3 10:05:03 Anemia 013645323 Active 2022 Ang Patterson MD [address], [place], [address], [facility] [employer] [facility] 3 14:59:07 Vitamin D deficiency 94289953 Active 2023 Ang Patterson MD [address], [place], [address], [facility] [employer] [facility] [employer] [facility] 4 10:31:01 Hyperlipide ana 74968949 Active 2023 Ang Patterson MD [address], [place], [address], [facility] [employer] [facility] [employer] [facility] 4 10:31:30 Pain of bilateral hands 5411012046974 9109 Active 2023 Ang Patterson MD [address], [address] [address], [place], [address], [facility] [employer] [facility] [employer] [facility] 4 10:34:43 Intussuscep tion of small intestine 790491118 Active 2023 SHIRA Mckeon [address], [place], [address], [facility] [employer] [facility] 4 14:12:52 Pulmonary embolism 06486545 Active 2023 Ang Patterson MD [address], [place], [address], [facility] [employer] [facility] [employer] [facility] 4 10:05:37 Pulmonary embolism with pulmonary infarction 3285259420010 Active 2023 Ang Patterson MD [address] [facility], [address] [address], [place], [address], [facility] [employer] [facility] 10:13:28 Dyspnea on exertion 92512768 Active 2023 Ang Patterson MD [address] [facility], [address] [address], [place], [address], [facility] [employer] [facility] 15:57:53 Tremor 90617551 Active 2023 Ang Patterson MD [address] [facility], [facility] [address], [place], [address], [facility] [employer] [facility] 11:59:25 Problem Notes None recorded. Procedures Surgical History Date Name Laterality Status Provider Name and Address Organization Details Recorded Time 03/31/2024 Transition al_Care_Ma nagement completed [facility] [employer] [facility] 03/31/2024 15:42:49 03/12/2024 Transition al_Care_Ma nagement completed [facility] [employer] [facility] 03/12/2024 09:52:22 Imaging Results Imaging Date Name Status LastModified by Organization Details LastModified Time 12/13/2023 CT, abdomen + pelvis, w/ contrast completed [address], [address], 12/23/2023 09:42:22 12/30/2023 CT, cervical spine, w/o contrast completed [address], [address], 12/30/2023 14:14:10 12/30/2023 XR, lumbosacral spine, 2 or [address] view completed [address], [place], [address], 12/30/2023 14:14:21 01/22/2024 XR, chest completed [email or web address] [address], [address], 01/22/2024 11:16:05 01/22/2024 LDCT, chest, for lung cancer screening completed [address], [place], [address], 01/22/2024 17:06:54 01/22/2024 CT, angiogram, chest, w/ contrast completed [address] [facility], [place], [address], 03/12/2024 11:08:31 02/24/2024 US, doppler echocardiogram completed [address], [address], 03/12/2024 10:02:16 03/25/2024 XR, chest, 2 view completed [address] [address], [place], [address], 03/31/2024 15:49:25 03/25/2024 CT, angiogram, chest, w/ contrast completed [address] [address], [place], [address], 03/31/2024 15:49:25 04/02/2024 CT, brain, w/o contrast completed [address] [address], [place], [address], 04/09/2024 11:57:47 04/02/2024 XR, chest completed [address], [address], 04/09/2024 11:57:47 04/08/2024 imaging/diagnostic result completed [address], [address], 04/29/2024 09:51:53 Procedure Notes None recorded. Medical [...] 1/2 TABLET BY MOUTH EVERY 12 HOURS WITH FOOD NEEDED active Not Available Not Available No t Available polysacchar usman iron complex 150 mg [...] No t Available Eliquis 5 mg tablet TAKE 1 TABLET BY MOUTH TWICE DAILY DIRECTED active Not Available Not Available No t Available Anoro Ellipta 62.5 mcg-25 mcg/actuati on powder [...] % 132 mm[Hg] 72 mm[Hg] Alexx Resendiz [facility] [employer] [facility] 4 10:05:54 Date Recorded Body mass index (BMI) Body weight Provider Name and Address Organization Details Last Updated DateTime 10/24/2023 32.5 kg/m2 72368.86 g Ang Patterson MD [address], [address], [facility] angel[employer] [facility] 10/24/2023 10:40:55 Date Recorded Body height Body temperature Heart rate Oxygen saturation Oxygen saturation in Arterial blood by Pulse oximetry Body mass index (BMI) Body weight Systolic blood pressure Diastolic blood pressure Provider Name and Address Organization Details Last Updated DateTime 4 165.1 cm 98.7 [degF] 89 /min 98 % 98 % 33 kg/m2 96591.4 4 g 173 mm[Hg] 102 mm[Hg] Tana Brown MA [facility] [employer] [facility] 4 14:07:48 Date Recorded Body height Body mass index (BMI) Body weight Body temperature Provider Name and Address Organization Details Last Updated DateTime 03/12/2024 165.1 cm 30.5 kg/m2 05418.75 g 98.2 [degF] Alexx Resendiz [facility] [employer] [facility] 03/12/2024 09:56:29 Date Recorded Heart rate Respiratory rate Oxygen saturation Oxygen saturation in Arterial blood by Pulse oximetry Inhaled oxygen flow rate Systolic blood pressure Diastolic blood pressure Provider Name and Address Organization Details Last Updated DateTime 4 100 /min 24 /min 90 % 90 % 2 L/min 146 mm[Hg] 88 mm[Hg] Ang Patterson MD [address] [facility], [address], [address], [facility] angel[employer] [facility] 4 10:41:10 Date Recorded Body height Body mass index (BMI) Body weight Body temperature Systolic blood pressure Diastolic blood pressure Provider Name and Address Organization Details Last Updated DateTime 4 165.1 cm 32.1 kg/m2 87612.3 8 g 98.1 [degF] 144 mm[Hg] 90 mm[Hg] Alexx Resendiz [employer] 4 15:47:52 Date Recorded Heart rate Respiratory rate Oxygen saturation Oxygen saturation in Arterial blood by Pulse oximetry Inhaled oxygen flow rate Provider Name and Address Organization Details Last Updated DateTime 4 110 /min 22 /min 94 % 94 % 2 L/min Ang Patterson MD [address], [address], [employer] 4 16:08:35 Date Recorded Body height Body mass index (BMI) Body weight Body temperature Respiratory rate Systolic blood pressure Diastolic blood pressure Provider Name and Address Organization Details Last Updated DateTime 165.1 cm 31.8 kg/m2 37126.4 9 g 97.9 [degF] 16 /min 146 mm[Hg] 86 mm[Hg] Alexx Resendiz [employer] [facility] [email or web address] 4 11:51:44 Date Recorded Heart rate Oxygen saturation Oxygen saturation in Arterial blood by Pulse oximetry Provider Name and Address Organization Details Last Updated DateTime 04/09/2024 96 /min 96 % 96 % Ang Patterson MD [address], [address] [place] [address] [employer] 04/09/2024 12:43:19 Social History Question Answer Notes LastModified by Organizat ion Details LastModified Time Tobacco Smoking Status Former Smoker Ang Patterson MD [address], [address], [facility] [employer] 04/23/2023 15:18:12 Do You Have An Advance [...] Or The Highest Degree You Have Received? [id number] Information not available 04/23/2023 Have There Been [...] Do You Have A Medical Power Of Monument Erector? No Information not available 04/23/2023 How Many [...] Anxious, Or Unable To Sleep At Night)? [id number] Information not available 04/23/2023 Do You Use [...] DISEASE/DISORDER N HISTORY OF DRUG ABUSE N RADIATION / CHEMOTHERAPY N COPD N Other # 2 N BLOOD DISEASES N SURGERY N EAR OR HEARING PROBLEMS N MUMPS N SHINGLES N FEMALE PROBLEMS / INFECTIONS N DEPRESSION (INCLUDING POST ) N BOWEL PROBLEMS N FAILED BACK SYNDROME N STROKE/TIA N THYROID DISEASE N ULCERS N BENIGN PROSTATIC HYPERPLASIA N MEASLES N CERVICALGIA N TB SKIN TEST N HYPOTENSION N MYOCARDIAL INFARCTION N PARAPELGIA N OBESITY N GERD/NAUSEA N ANEURYSM N URINARY/BLADDER/KIDNEY PROBLEMS N CORONARY ARTERY DISEASE (CAD) N MENIERE'S DISEASE N Do you have Advance directive? N ADDICTION CONCERNS N ENDOMETRIOSIS N USE [...] DIVERTICULITIS N SLEEP APNEA N CHICKENPOX N BACK INJECTIONS N ALLERGIES/HAYFEVER N INFECTIOUS DISEASE N PROSTATE N HEART ARRHYTHMIA N INSOMNIA N ESRD N HIGH CHOLESTEROL / HYPERLIPIDEMIA N HYPERTHYROIDISM N EYE PROBLEMS N PVD N EATING DISORDER N EDEMA N CHRONIC PAIN SYNDROME N CONSTIPATION N CAROTID BLOCKAGE N BACK / NECK PROBLEMS N HAVE YOU BEEN HOSPITALIZED OR SEEN IN [facility] IN THE PAST YEAR ? N ATHEROSCLEROSIS [...] DISORDER N ALZHEIMER'S DISEASE N PAIN N HERPES N DEMENTIA N SEIZURES/EPILEPSY N HEADACHES/MIGRAINES N VASCULAR DISEASE N PACEMAKER N DIZZINESS N KIDNEY DISEASE N HEART DISEASE/HEART PROBLEMS N SCARLET FEVER N MULTIPLE SCLEROSIS N MENTAL DISORDER/ILLNESS N DEVELOPMENTAL OR BEHAVIORAL DISORDERS N NEUROPSYCHOLOGICAL N CARDIAC ARRHYTHMIA N CANCER: SPECIFY N PNEUMONIA N Gall Stones N ATRIAL FIBRILLATION N PULMONARY EMBOLISM N AUTOIMMUNE DISEASE N Gynecological HistoryNo gynecological history recorded. Obstetrics History GPAL:G 3 P 0 0 0 0 Past Encounters Encounter ID Performer Location Encounter Start Date Encounter Closed Date Diagnosis/Indication Diagnosis SNOMED-CT Code Diagnosis ICD10 Code Diagnosis Note [id number] Ang Patterson MD [address] [address] 04/23/2023 14:37:09 04/23/2023 15:24:12 Depressive disorder 79250411 F32.A Anxiety disorder F41.9 Posttrauma tic stress disorder 83062814 F43.10 Obesity 238845946 E66.9 Ex-smoker 7933060 Z87.89 1 Chronic neck pain 776496 9275 107 M54.2 Chronic low back pain 27 2353240 M54.50 Cervical s pondylosis without myelopathy 727752938 M47.401 [id number] Ang Patterson MD [address] [address] 05/14/2023 17:26:14 05/14/2023 17:49:44 Chronic neck pain 8907075177 107 M54.2 Chronic low back pain 27 6204898 M54.50 Cervical s pondylosis without myelopathy 106800046 M47.812 Depressive disorder 3548 9007 F32.A Anxiety disorder F41.9 Posttrauma tic stress disorder 60270910 F43.10 Obesity 864443084 E66.9 Ex-smoker 4623628 Z87.89 1 Degenerati on of cervical intervertebral disc 97345678 M50.30 [id number] Ang Patterson MD [address] [address] 06/04/2023 09:43:47 06/04/2023 10:27:29 Adult health examination 234441836 Z00.00 Chronic neck pain 730570 8116 107 M54.2 Chronic low back pain 27 5677869 M54.50 Obesity 934766253 E66.9 Ex-smoker 0724221 Z87.89 1 Otalgia of right ear 769 7575150 H92.01 Screening colonoscopy 44 6066355 Z12.11 Chronic id iopathic constipation 86186054 K59.04 Gastroesop hageal reflux disease without esophagitis 691475391 K21.9 Screening mammography 24 347678 Z12.31 Cervical s pondylosis without myelopathy 277360345 M47.812 Xerostomia 40614047 R68. 2 [id number] Ang Patterson MD [address] [address] 06/25/2023 14:39:36 06/25/2023 15:24:08 Chronic neck pain 7042498956 107 M54.2 Chronic low back pain 27 5597757 M54.50 Obesity 566543523 E66.9 Ex-smoker 9459710 Z87.89 1 Chronic id iopathic constipation 88327823 K59.04 Gastroesop hageal reflux disease without esophagitis 462085903 K21.9 Cervical s pondylosis without myelopathy 918262285 M47.812 Xerostomia 75043777 R68. 2 Anemia 779740272 D64.9 [id number] Ang Patterson MD [address] [address] 07/18/2023 15:27:03 07/18/2023 15:47:18 Chronic neck pain 9359425452 107 M54.2 Chronic low back pain 27 4325545 M54.50 Obesity 956387381 E66.9 [id number] Ang Patterosn MD [address] [address] 08/22/2023 10:25:27 08/22/2023 10:43:48 Obesity 585429406 E66.9 Gastroesop hageal reflux disease without esophagitis 988281527 K21.9 Depressive disorder 3548 9007 F32.A [id number] Ang Patterson MD [place] [address] 10/24/2023 09:54:39 10/24/2023 10:45:37 Gastroesophageal reflux disease without esophagitis 590056517 K21.9 Obesity 499477394 E66.9 Vitamin D deficiency 347 04630 E55.9 Hyperlipidemia 72920032 E78.5 Pain of bi lateral hands 4694025758 4896685 M79.641 Screening colonoscopy 44 5645138 Z12.11 [id number] SHIRA Mckeon [address] [address] 01/29/2024 13:56:02 01/29/2024 14:34:01 Intussusception of small intestine 221077905 K56.1 Chronic id iopathic constipation 23680378 K59.04 Obesity 008186826 E66.9 [id number] Ang Patterson MD [address] [address] 03/12/2024 09:48:48 03/12/2024 11:12:17 Vitamin D deficiency 13429567 E55.9 Hyperlipidemia 15941623 E78.5 Gastroesop hageal reflux disease without esophagitis 695486194 K21.9 Obesity 706368991 E66.9 Pain of bi lateral hands 8274962257 3665191 M79.641 Hospital i npatient stay within past 30 days 4612190800 106 Z76.89 Transition of care 00308 03501 105 Z75.8 Pulmonary embolism 19689 003 I26.99 Cervical s pondylosis without myelopathy 369934828 M47.812 Pulmonary embolism with pulmonary infarction 8883407616 102 I26.99 [id number] Ang Patterson MD [address] [address] 03/31/2024 15:36:12 03/31/2024 16:29:17 Transition of care 5796448209 105 Z75.8 Pulmonary embolism 51358 003 I26.99 Vitamin D deficiency 347 52068 E55.9 Hyperlipidemia 30875549 E78.5 Gastroesop hageal reflux disease without esophagitis 800630766 K21.9 Obesity 436921187 E66.9 Pain of bi lateral hands 3150191410 5841415 M79.641 Cervical s pondylosis without myelopathy 044987684 M47.812 Pulmonary embolism with pulmonary infarction 0515009488 102 I26.99 Dyspnea on exertion 6084 5006 R06.09 Screening for malignant neoplasm of colon 480070959 Z12.11 [id number] Ang Patterson MD [facility] [address] [address] 04/09/2024 11:38:36 04/09/2024 14:39:32 Transition of care 7881012685 105 Z75.8 Pulmonary embolism 75719 003 I26.99 Vitamin D deficiency 347 90377 E55.9 Hyperlipidemia 71952060 E78.5 Gastroesop hageal reflux disease without esophagitis 344427838 K21.9 Obesity 993685832 E66.9 Pain of bi lateral hands 2639125778 8845219 M79.641 Cervical s pondylosis without myelopathy 684122430 M47.812 Pulmonary embolism with pulmonary infarction 2230388002 102 I26.99 Dyspnea on exertion 6084 5006 R06.09 Tremor 77303466 R25.1 Hospital i npatient stay within past 30 days 7587523677 106 Z76.89 Health Concerns Section Related Observation LastModified by Organization Detai ls LastModified Time None Recorded Concern Status LastModified by Organization Details LastModified Time None Recorded Advance Directives Directive N: Payers Encounter Date Sequence Insurance Name Policy Number Policy Walsh Covered Member ID Walsh Member ID Guarantor Name 10/24/2023 1 *SELF PAY* Ka rla Shallenberger 01/29/2024 1 *SELF PAY* Ka rla Shallenberger 03/12/2024 1 *SELF PAY* Ka rla Shallenberger 03/31/2024 1 [place] Anat Phelan [id number] Anat Phelan 04/09/2024 1 [place] Anat Phelan [id number] Anat Phelan Notes Date Note Type Note [...] PTSD and is f/u with Psych at [facility] for it. Pt is on meds by them and is doing overall well with it. Denies any mood swings/SI/HI. Pt was f/u with Endo at [facility] and is on chronic Prednisone from them for last couple years. Ang Patterson MD [address] [place] [address] [address], [place], [address], [place] - [facility] [employer] 10/24/2023 10:42:51 01/29/2024 text/html Anat alvarez is [...] speak with case managment. SHIRA Mckeon [address], [place], [address], [facility] [employer] [facility] [email or web address] 01/29/2024 14:33:48 03/12/2024 text/html Hospital fuv:Pt has some insurance issues going on. Pt was admitted to [facility] on 02/22/24 due to not feeling well. Pt was found to have Pneumonia, PE, pulmonary infarction, pulmonary edema. Pt has finished her antibiotics and she is on Eliquis and Lyman. Pt is needing refill on them. Pt will be seeing Pulmo at [facility] in few weeks. Pt has home O2 [...] PTSD and is f/u with Psych at [facility] for it. Pt is on meds by them and is doing overall well with it. Denies any mood swings/SI/HI. Pt was f/u with Endo at [facility] and is on chronic Prednisone from them for last couple years. Ang Patterson MD [address], [facility] [address], [place], [address], [employer] 03/12/2024 11:10:25 03/31/2024 text/html Hospital fuv: Pt was seen in ED again on 03/25/24 due to SOB and chest pain and got work up done and was found to have Pneumonia. So pt was d/c on Z-jeanmarie and hydrocodone from ED. Pt has finished Z-jeanmarie and is feeling much better now. No fever/chills/n/v/d/sp utum. Pt will be seeing Pulmo at [facility] on 04/08/24. Pt has home O2 set up done already and she has with her. Pt was admitted to [facility] on 02/22/24 due to not feeling well. Pt was found to have Pneumonia, PE, pulmonary infarction, pulmonary edema. Pt has finished her antibiotics and she is on Eliquis and Lyman. Pt is needing refill on them. Pt [...] PTSD and is f/u with Psych at [facility] for it. Pt is on meds by them and is doing overall well with it. Denies any mood swings/SI/HI. Pt was f/u with Endo at [facility] and is on chronic Prednisone from them for last couple years. Ang Patterson MD [address] [place] [address], [facility] [address], [place], [address], [facility] [employer] 03/31/2024 16:13:31 04/09/2024 text/html Hospital fuv: Pt [...] body pain and she is asking for Lyman. Pt is not taking her Gabapentin. Pt was seen couple weeks ago and was given Lyman by me # 40 on 03/21/24 and [...] week. Pt is f/u with Pulmo at [facility] for her Pneumonia, PE and chronic hypoxia and is on meds by them. Pt has home O2 set up for her home. Pt was admitted to [facility] on 02/22/24 due to not feeling well. Pt was found to have Pneumonia, PE, pulmonary infarction, pulmonary edema. Pt has finished her antibiotics and she is on Eliquis and Lyman. Pt is needing refill on them. Pt [...] PTSD and is f/u with Psych at [facility] for it. Pt is on meds by them and is doing overall well with it. Denies any mood swings/SI/HI. Pt was f/u with Endo at [facility] and is on chronic Prednisone from them for last couple years. Ang Patterson MD [address] [facility], [facility] [address], [place], [address], [place] - [facility] [email or web address] 04/09/2024 14:38:39 OBGyn Episode No OBEpisode recorded.
--- OUTSIDE RECORDS SUMMARY | 2024-11-05 10:13 | XMS_ITS | Patient Health Summary ---
Author Organization [facility] [employer] Management Address [address] [place] [address] Care Team Providers Care Senior Product Development Engineer Name Role Phone Kendrick Chacon MD Primary Care Provider [phone] Note from [facility],non-owned Affiliates and Associated Physician Practices is amultiple site organization consisting of ambulatory clinics and hospital sitesin [place], [place], [place] and [place]. This disclosure is being madepursuant to the Care Everywhere program and may not contain all information available regarding this patient. Last updated 18.[facility] Allergies No known active allergies Medications * [...] * vitamin D, ergocalciferol, (DRISDOL) 1.25 MG (41370 UT) capsule(Started 07/12/2021) TAKE 1 CAPSULE BY [...] elderly multigravida (HCC), Encounter for fetalanatomic survey ([facility]) * XR CHEST 1VW PORTABLE(Performed 01/01/2017) Performed for Viral pneumonia Results * BIOPHYSICAL PROFILE W NST (02/13/2017 7:51 AM CDT) Only the most recent of2 resultswithin the time period is included. Anatomical Region Laterality Modality Other 02/13/2017 7:51 AM CDT Narrative 02/13/2017 10:36 AM CDT [facility] PHONE: FAX: Pat. Name: ANAT PHELAN Pat. No: [id number] Study Date: 02/13/2017 7:51am , Age: 12 1975, 41 Pregnancies: 5, Para 2112 Height: 65 in Weight: 165 lb LMP: 06/06/2016 GA by LMP: 36w0d GA by 1st: 36w0d GA Selected: 36w0d (From First S) JORGE LUIS: 03/13/2017 Referring MD: Guevara Sal MD Foreign Language Professor: Sushma Oakes RDMS BMI: 27.45 Hist/Ind: Small Head Circumference on Outside Scan History of 33wk Delivery Advanced Maternal Ywp-Fri-Ywmq NIPT EFW < 10th % Heart Rate: 129 bpm Amniotic Fluid Index: 07.3cm (07.7-24.9)* Q1: 2.3cm Q2: 2.2cm Q3: 1.5cm Q4: 1.3cm Biophysical Profile: 06/11 Breathin Tone: 2 NST: 2 Movement: 2 AFV: 2 DOPPLER Umbilical - Mid Cord S/D 2.44(1.64 - 3.51) PI 0.92 (0.58 - 1.16) Middle Cerebral Artery PSV PI 1.28 (1.39 - 2.52) * Med PSV 53.5cm/s MoM 1.07(<1.5) CLINICAL SUMMARY Study Number: 3 A single fetus is identified in cephalic presentation. The placenta is posterior. The amniotic fluid volume is decreased. The amniotic fluid index is 7.28 cm DOPPLER STUDIES: The umbilical artery Doppler S/D ratio is 2.44 , which is within normal limits for gestational age. The umbilical PI is 0.92, which is within normal limits for gestational age. The MCA PSV is 57.30 ( 1.07 MoM), which is within normal limits for gestational age. The MCA PI is 1.28, which is decreased for gestational age. TESTING The Biophysical profile score is 06/11. A 2x2 pocket of fluid was visualized. IMPRESSION: Single, live IUP at 36w0d Low normal TOSHIA Dopplers suggest cephalized blood flow Reassuring BPP/NST, and umbilical doppler RECOMMEND: Twice weekly testing with weekly Dopplers Follow up for growth in 1 week Follow up on Saturday for repeat Dopplers, NST, and BPP. Scheduled. Thanks for allowing us the opportunity to care for your patient. Andrea Holm MD <Electronic Signature> 02/13/2017 10:35am Montez Gregg MD [facility] ORDERABLES * SONOGRAM - COMPLETE (01/30/2017 9:22 AM CDT) Anatomical Region Laterality Modality Other 01/30/2017 9:22 AM CDT Narrative 01/30/2017 12:29 PM CDT [facility] PHONE: FAX: Pat. Name: ANAT PHELAN Rufina. No: [id number] Study Date: 01/30/2017 9:22am , Age: 12 1975, 41 Pregnancies: 5, Para 2112 Height: 65 in Weight: 165 lb LMP: 06/06/2016 GA by LMP: 34w0d GA by US: 31w4d GA Selected: 34w0d (LMP) JORGE LUIS: 03/13/2017 Referring MD: Guevara Sal MD Foreign Language Professor: Kate Devlin RDMS CPT4: 36882, 87045, [address]734, [address]484 BMI: 27.45 Hist/Ind: Small Head Circumference on Outside Scan History of 33wk Delivery Advanced Maternal Jiq-Afs-Cesy NIPT MEASUREMENTS & AGE GROWTH EVALUATION Measurement GA Range Srce %for GA Ratios ----- ---- ------- BPD 7.5 cm 30w2d (82x4d-22i2q) Hadl BPD <05 FL/BPD 0.84 (0.71 - 0.87) HC 29.0 cm 31w6d (79a1m-97d4f) Hadl HC 18% FL/AC 0.23 (0.20 - 0.24) AC 27.5 cm 31w4d (24p6r-61v7w) Hadl AC 14% HC/AC 1.05 (0.94 - 1.13) FL 6.4 cm 32w6d (05s3c-76n2d) Hadl FL 32% CI 0.73 (0.70 - 0.86) HL 5.4 cm 31w3d (62w6r-01j6c) Azam HL 7% GA for sonogram 31w4d (53u2d-56u8l) Weight Estimate: based on (BPD,HC,AC,FL) Avg Weight: 1854 gm (1411-0223) Hadlo : 4lbs, 1oz Normal: 2377 gm (1649-4327) Hadlo Wt% <10 for 34w0d Heart Rate: 132 bpm Amniotic Fluid Index: 12.9cm (08.1-24.8) Q1: 2.1cm Q2: 3.7cm Q3: 3.4cm Q4: 3.7cm Biophysical Profile: 06/11 Breathin Tone: 2 NST: 2 Movement: 2 AFV: 2 DOPPLER Umbilical - Mid Cord S/D 2.51(1.73 - 3.68) PI 0.93 (0.62 - 1.20) Middle Cerebral Artery PSV PI 2.35 (1.53 - 2.74) Med PSV 48.8cm/s MoM 0.98(<1.5) CLINICAL SUMMARY Study Number: 1 A single fetus is identified cephalic presentation. The measurements today are consistent with less than [...] UA and MCA Dopplers appear normal RECOMMEND: Follow up ultrasound in 2 weeks for growth evaluation Weekly testing: BPP, NST, TOSHIA Thank you for allowing us the opportunity to care for your patient. Montez Gregg MD <Electronic Signature> 01/30/2017 12:01pm Revised Guevara Sal MD [facility] ORDERABLES * XR CHEST 1VW PORTABLE (01/01/2017 [...] clear. Jacquelyn Carlos MD DIAGNOSTIC IMAGING O [facility] Care Teams Senior Product Development Engineer Relationship Specialty Start Date End Date Kendrick Chacon MD [address] [facility] [address] [place] [address] PCP - General 04/03/21
--- OUTSIDE RECORDS SUMMARY | 2024-11-05 10:13 | XMS_ITS | Referral Summary ---
Author Organization [facility] Address [address] [place] [address] Care Team Providers Care Broke Handler Name Role Phone Kendrick Chacon MD Unavailable [...] Industry Job Start Date Job End Date [place] Not on file Not on file Not on file Last Filed Vital Signs Vital Sign Reading Time Taken Comments Blood Pressure 135/81 07/15/2024 10:44 AM LINE PATROL[employer] Pulse 70 07/15/2024 10:44 AM LINE PATROLMAN Temperature 36.7 C (98 F) 07/15/2024 10:44 AM LINE PATROLMAN Respiratory Rate 18 05/10/2021 3:55 PM CDT Oxygen Saturation 97% 05/10/2021 3:55 PM CDT Inhaled Oxygen Concentration - - Weight 88 kg (194 lb) 07/15/2024 10:44 AM LINE PATROL[employer] Height 165.1 cm (5' 5 ) 07/15/2024 10:44 AM LINE [employer]ROL[employer] Body Mass Index 32.28 07/15/2024 10:44 AM LINE PATROLMAN Plan of Treatment Not on file Procedures Procedure Name Priority Date/Time Associated Diagnosis Comments HEPATITIS C ANTIBODY Routine 07/15/2024 12:49 PM LINE PATROLMAN Effusion of joint, unspecified location Arthralgia, unspecified joint from Last 3 Months or Most Recently Relevant to Health Maintenance Results * Hepatitis C antibody Blood (07/15/2024 12:49 PM LINE PATROLMAN) Hep C Ab Nonreactive Nonreactive Comment:Antibodies to HCV no t detected. Does NOT exclude the possibility of recent exposure to HCV. Current interpretive data was last revised on 22 Blood 07/15/2024 12:4 9 PM LINE PATROLMAN 07/15/2024 1:25 PM LINE PATROLMAN Jessie Sherwood MD LAB MICROBIOLOGY - GENERAL ORDERABLES Final Result [facility] [place] [address] from Last 3 Months or Most Recently Relevant to Health Maintenance Insurance Aunt [employer] ID [facility] Care Teams Broke Handler Relationship Specialty Start Date End Date Keven Gonzalez DO [address] [place] [address] PCP - General Family Medicine 05/29/24 Kendrick Chacon MD Emergency Medicine 04/27/20 Edy Yadav MD [address] [place] [address] Consulting Physician Pain Management 04/28/21
== END 2024-11-05 09:19 | disposition home or self-care (01) ==
PROVIDERS: PCP Family Medicine; Visit Provider Anesthesiology Pain Medicine
DX: M46.1 Sacroiliitis, not elsewhere classified (principal); M54.40 Lumbago with sciatica, unspecified side; G89.29 Other chronic pain; M47.896 Other spondylosis, lumbar region; M53.3 Sacrococcygeal disorders, not elsewhere classified; M16.11 Unilateral primary osteoarthritis, right hip
CPT/HCPCS: 72114; 72202; 73521

== ENCOUNTER 2024-11-24 09:32 | Outpatient (CLI) | payer OTHER, SELFPAY ==
--- NOTE | ~2024-11-24 | CT_ITS ---
EXAMINATION:CT diagnostic chest wo con DATE: 11/24/2024 09:48 INDICATION: Other pulmonary embolism without acute cor pulmonale. TECHNIQUE: Computed tomography (CT) of the chest was performed without intravenous contrast. Automate d exposure control and iterative reconstruction technique were employed. The dose-length product (DLP ) was 61.54 mGy-cm. COMPARISON: Chest CT 04/09/2024 FINDINGS: There is mild atelectasis in right lower lobe. There are a few scattered nodules in the veda gs measuring up to 3 mm, likely benign. A calcified left lung nodule is consistent with old edematous disease. No pleural effusion. The heart size is normal. No pericardial effusion. There are changes o f cholecystectomy. There is mild thoracic spondylosis. IMPRESSION: 1. Small pulmonary nodules, likely benign. Reviewed, dictated and finalized at location A.
--- OUTSIDE RECORDS SUMMARY | 2024-11-24 10:47 | XMS_ITS | Clinical Summary ---
Author Organization [facility] Address [address] [place] [address] Care Team Providers Care Pricing Specialist Name Role Phone Kendrick Chacon MD Primary Care Provider [phone] Source Comments [facility],non-owned Affiliates and Associated Physician Practices is amultiple site organization consisting of ambulatory clinics and hospital sitesin [place], [place], [place] and [place]. This disclosure is being madepursuant to the Care Everywhere program and may not contain all information available regarding this patient. Last updated 18.[facility] Allergies No known active allergies Medications * [...] Active vitamin D, ergocalciferol, (DRISDOL) 1.25 MG (23040 UT) capsule TAKE 1 CAPSULE BY MOUTH [...] to complete this topic MENINGOCOCCAL (Group B) VACC INE SHARED DECISION-MAKING Aged Out No longer eligibl e based on patient's age to complete this topic MENINGOCOCCAL GROUPS A/C/Y/W VACCINE Aged Out No longer eligible b ased on patient's age to complete this topic Advance Directives Documents on File Type Date Recorded Patient Supervisor Roving Expl anation Adv Directive/Living Will/POA 01/01/2017 * Full Code (Latest Code Status on File) Date Activated Date Inactivated Comments 01/01/2017 7:27 PM 01/01/2017 9:50 PM Care Teams Pricing Specialist Relationship Specialty Start Date End Date Kendrick Chacon MD [address] [facility] [address] [place] [address] PCP - General 04/03/21
--- OUTSIDE RECORDS SUMMARY | 2024-11-24 10:48 | XMS_ITS | Clinical Summary ---
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 Not on file Not on file Obstetrics History Last Filed Vital Signs Vital Sign Reading Time Taken Comments Blood Pressure 135/81 07/15/2024 10:44 AM [employer] Pulse 70 07/15/2024 10:44 AM [employer]ICK [employer] Temperature 36.7 C (98 F) 07/15/2024 10:44 AM [employer]ICK P[employer] CHECKER Respiratory Rate 18 05/10/2021 3:55 PM CDT Oxygen Saturation 97% 05/10/2021 3:55 PM CDT Inhaled Oxygen Concentration - - Weight 88 kg (194 lb) 07/15/2024 10:44 AM [employer] CHECKER Height 165.1 cm (5' 5 ) 07/15/2024 10:44 AM [employer] CHECKER Body Mass Index 32.28 07/15/2024 10:44 AM BRICK P[employer]ING CHECKER Plan of Treatment Health Maintenance Due Date [...] HEPATITIS C ANTIBODY Routine 07/15/2024 12:49 PM [employer] CHECKER Effusion of joint, unspecified location Arthralgia, unspecified joint from Last 3 Months or Most Recently Relevant to Health Maintenance Results * Hepatitis C antibody Blood (07/15/2024 12:49 PM BRICK P[employer]ING CHECKER) Hep C Ab Nonreactive Nonreactive Comment:Antibodies to HCV no t detected. Does NOT exclude the possibility of recent exposure to HCV. Current interpretive data was last revised on 22 Blood 07/15/2024 12:4 9 PM BRICK P[employer]ING CHECKER 07/15/2024 1:25 PM BRICK P[employer]ING CHECKER us Jessie Sherwood MD LAB MICROBIOLOGY - GENERAL ORDERABLES Final Result [facility] Department [place] [address] from Last 3 Months or Most Recently Relevant to Health Maintenance [place] [address] [place] [address] [facility] Care Teams Metalizer Field Operation Relationship Specialty Start Date End Date Keven Gonzalez DO [address] [place] [id number] PCP - General Family Medicine 05/29/24 Kendrick Chacon MD Emergency Medicine 04/27/20 Edy Yadav MD [address] [facility] [address] Consulting Physician Pain Management 04/28/21
--- OUTSIDE RECORDS SUMMARY | 2024-11-24 10:48 | XMS_ITS | Data Portability ---
Author Organization [facility], Main Office Address [address] [place] [address] Assessment Encounter Date Assessment Date Assessment LastModified [...] per schedule. Cont f/u with Psych at [facility] as per schedule. Cont f/u with Gyne at [place] as per schedule. HM: WWE - 06/23, [...] Pt will be calling her Pulmo at [place] and see if she can be seen sooner. Pt declined for referral to Cardio. All meds verified with pt. [place] 5/325 # 40 given today until she can see [employer] Att[employer]. Meds as directed. Good liquid and fiber intake explained. Diet and exercise explained in detail. BP diary education given and call us if any concerns. F/u with PT as per schedule. F/u with GI as per schedule. Cont f/u with Pulmo at [place] as per schedule. Cont f/u with Psych at [facility] as per schedule. Cont f/u with Gyne at [place] as per schedule. HM: WWE - 06/23, normal as per pt. Cont f/u with Gyne as per schedule. Mammo - 2 yrs ago. Ordered. Colonoscopy - Referred to GI. Flu - Pt declined. Tdap, Pneumo, Shingrix - At pharmacy/HD. F/u in 1 month. Lipids before next visit. Annual labs in 06/25. Not available 03/12/2024 11:09:21 03/31/2024 03/31/2024 48 [...] be seeing her Pulmo on 04/08/24 at [place]. Will refer pt to Cardio, Pain clinic. [...] per schedule. Cont f/u with Pulmo at [place] as per schedule. Cont f/u with Psych at [facility] as per schedule. Cont f/u with Gyne at [place] as per schedule. HM: WWE - 06/23, normal as per pt. Cont f/u with Gyne as per schedule. Mammo - 2 yrs ago. Ordered. Colonoscopy - Referred to GI. Cologuard ordered. Flu - Pt declined. Tdap, Pneumo, Shingrix - At pharmacy/HD. F/u in 1-2 months. Annual labs in 06/25. [email or web address] Not available 03/31/2024 16:12:56 04/09/2024 04/09/2024 48 [...] per schedule. Cont f/u with Pulmo at [place] as per schedule. Cont f/u with Psych at [facility] as per schedule. Cont f/u with Gyne at [place] as per schedule. Educated pt about alarming [...] F/u as directed. Annual labs in 06/25. [email or web address] Not available 04/09/2024 14:37:51 Plan of Treatment Reminders Order Date Submit Date Provider Last Modified By Organization Details Last Modified Time Details Appointments None recorded. Lab noninvasive colorectal cancer DNA + occult blood screening, QL, stool 2023 024 [facility] (Cologuard Orders Only), [address], [address], [place], [address], 17:19:08 lipid panel, serum [address] (Lab), [address] [place], [address], 4 08:11:23 lipid panel, serum [address] (Lab), [address] [place], [address], 4 08:30:44 Referral neurologist referral - Please call patient to schedule an appointment . Thank you. 2023 024 [email or web address] [facility] Neurology, [address] [facility], [place], [address], 4 08:52:35 cardiologis t referral - Please call patient to schedule an appointment . Thank you. 2023 024 [email or web address] [facility] Heart And Vascular Referral Fax Line, [address] [facility], [facility] [address], [place], [address], 4 07:47:52 pain management referral - Please call patient to schedule an appointment . Thank you. 2023 024 [email or web address] [facility], [address] [facility] [address], [place], [address], 4 07:46:41 hematologis t referral - Multiple PEs, ex-smoker. Please call patient to schedule an appointment . Thank you. 2023 024 [email or web address] Matthew Ungernti , [address] [place], [address], 4 08:54:02 gastroenter ologist referral - Patient has new onset intussuscep tion , found on CT 01/21, not present on CT 12/12. Diverticulo sis. Please call patient to schedule an appointment . Thank you. 2023 [email or web address] [facility], [address], [address], [place], [address], 4 08:51:43 gastroenter ologist referral - Please call patient to schedule an appointment . 2023 024 [email or web address] Brenden Carlson MD, [address] [facility], [address], [place], [address], 4 08:35:15 Procedures None recorded. Surgeries None recorded. Imaging XR, hand, 3 or more view 2023 024 [email or web address] [id number] Not available 09:04:28 Medication Orders ipratropium 0.5 mg-albutero l 3 mg (2.5 mg base)/3 mL nebulizatio n soln 2023 [facility] #53773, [address] [place], [place], [id number], 4 12:05:29 albuterol sulfate HFA 90 mcg/actuati on aerosol inhaler 2023 024 [facility] #16162, [address], [place], [place], [id number], 4 12:05:29 furosemide 20 mg tablet 2023 [facility] #75117, [address], [place], [place], [id number], 4 12:05:30 omeprazole 40 mg capsule,del ayed release 2023 [facility] #00332, [address], [place], [place], [id number], 4 12:05:30 famotidine 40 mg tablet 2023 [facility] #18173, [address], [place], [place], [id number], 4 12:05:29 atorvastati n 10 mg tablet 2023 [facility] #64517, [address], [place], [place], [id number], 4 12:05:33 ipratropium 0.5 mg-albutero l 3 mg (2.5 mg base)/3 mL nebulizatio n soln 2023 024 [facility] #72341, [address], [place], [place], [id number], 4 16:00:21 Eliquis 5 mg tablet 2023 024 [facility] #11517, [address], [place], [place], [id number], 4 16:00:24 albuterol sulfate HFA 90 mcg/actuati on aerosol inhaler 2023 024 [facility] #86728, [address] [facility], [place], [place], [id number], 4 16:00:26 furosemide 20 mg tablet 2023 024 [facility] #96886, [address] [facility], [place], [place], [id number], 4 16:00:26 gabapentin 600 mg tablet 2023 024 [facility] #99474, [address] [facility], [place], [place], [id number], 4 16:00:23 baclofen 20 mg tablet 2023 024 [facility] #14103, [address] [facility], [place], [place], [id number], 4 16:00:31 atorvastati n 10 mg tablet 2023 024 [facility] #40262, [address] [facility], [place], [place], [id number], 4 16:00:27 ergocalcife rol (vitamin D2) 1,250 mcg (50,000 unit) capsule 2023 024 [facility] #91128, [address] [facility], [place], [place], [id number], 4 16:00:29 omeprazole 40 mg capsule,del ayed release 2023 024 [facility] #80270, [address] [facility], [place], [place], [id number], 4 16:00:27 famotidine 40 mg tablet 2023 024 [facility] #27304, [address], [place], [place], [id number], 4 16:00:21 ipratropium 0.5 mg-albutero l 3 mg (2.5 mg base)/3 mL nebulizatio n soln 2023 024 [facility] #11680, [address], [place], [place], [id number], 4 10:22:20 Eliquis 5 mg tablet 2023 024 [facility] #25181, [address] [facility], [place], [place], [id number], 4 10:22:22 hydrocodone 5 mg-acetamin ophen 325 mg tablet 2023 024 [facility] #46379, [address] [facility], [place], [place], [id number], 4 10:22:59 albuterol sulfate HFA 90 mcg/actuati on aerosol inhaler 2023 024 [facility] #06226, [address] [facility], [place], [place], [id number], 4 10:23:13 furosemide 20 mg tablet 2023 024 [facility] #79924, [address] [facility], [place], [place], [id number], 4 10:46:07 atorvastati n 10 mg tablet 2023 024 [facility] #41411, [address] [facility], [place], [place], [id number], 4 10:22:22 gabapentin 300 mg capsule [email or web address] [facility] #47416, [address] [facility], [place], [place], [id number], 4 16:01:49 ergocalcife rol (vitamin D2) 1,250 mcg (50,000 unit) capsule 2023 [facility] #17484, [address] [facility], [place], [place], [id number], 4 10:22:22 omeprazole 40 mg capsule,del ayed release 2023 [facility] #64631, [address] [facility], [place], [place], [id number], 4 10:22:24 famotidine 40 mg tablet 2023 024 [facility] #72117, [address] [facility], [place], [place], [id number], 4 10:22:21 docusate sodium 100 mg capsule 2023 024 [facility] #50117, [address] [facility], [place], [place], [id number], 4 14:26:23 phentermine 37.5 mg tablet [email or web address] [facility] #83389, [address] [facility], [place], [place], [id number], 4 10:13:02 diclofenac sodium 75 mg tablet,tarsha yed release 2023 024 [facility] #32907, [address] [facility], [place], [place], [id number], 4 10:36:23 atorvastati n 10 mg tablet 02/2023 [facility] #97212, [address] [facility], [place], [place], [id number], 4 10:32:43 phentermine 37.5 mg tablet 2023 [facility] #10231, [address] [facility], [place], [place], [id number], 4 10:13:02 ergocalcife rol (vitamin D2) 1,250 mcg (50,000 unit) capsule 2023 [facility] #94666, [address] [facility], [place], [place], [id number], 4 10:32:39 omeprazole 40 mg capsule,del ayed release 2023 [facility] #17278, [address] [facility], [place], [place], [id number], 4 10:32:40 famotidine 40 mg tablet 2023 [facility] #38119, [address] [facility], [place], [place], [id number], 4 10:32:42 Patient TargetsNo targets recorded. Patient Instructions Encounter Date Encounter Id Patient Instructions Last Modified By Organization Details Last Modified Time 10/24/2023 [id number] learning about obesity [email or web address] Not available 10/24/2023 10:32:32 03/12/2024 [id number] learning about obesity [email or web address] Not available 03/12/2024 10:22:13 Thank you for [...] homebound status}} Required Home Health Services: {{none intermediate, physical therapy, occupational therapy intermediate, physical therapy intermediate}} Durable Medical Equipment needed: {{cane walker wal ker with seat manual wheelchair bedsid e commode oxygen}} Billing Guidelines CPT code 88242- Transitional Care Management services with moderate medical decision complexity (bngz-he-mlhu visit within 14 days of discharge). CPT code 77663- Transitional Care Management services with high medical decision complexity (rtnz-rz-krfq visit within 7 days of discharge). Not available 03/12/2024 09:52:22 03/31/2024 [id number] learning about obesity [email or web address] Not available 03/31/2024 16:00:11 Thank you for [...] to discuss. Not available 03/31/2024 15:42:48 04/09/2024 [id number] Thank you for your visit to our [...] Not available 04/09/2024 11:46:58 Reason for Referral Leather Finisher Referral for Screening colonoscopy Please call patient to schedule an appointment. Referring Physician: Ang Patterson [facility], Encounter Date: 10/24/2023 Leather Finisher Referral for Intussusception of small intestine Patient has new onset intussusception , found on CT 01/21, not present on CT 12/12. Diverticulosis. Please call patient to schedule an appointment. Thank you. Referring Physician: Janneth Rogers [facility], Encounter Date: 01/29/2024 Multiple PEs, ex-smoker. Ple ase call patient to schedule an appointment. Thank you. Referring Physician: Ang Patterson [facility], Encounter Date: 03/12/2024 Pain Management Referral for Cervical spondylosis without myelopathy Please call patient to schedule an appointment. Thank you. Referring Physician: Ang Patterson [facility], Encounter Date: 03/31/2024 V Belt Skiver Referral for Dy spnea on exertion Please call patient to schedule an appointment. Thank you. Referring Physician: Ang Patterson [facility], Encounter Date: 03/31/2024 Neurologist Referral for Kory mor B/l UE tremors for last 1-2 weeks. Please call patient to schedule an appointment. Thank you. Referring Physician: Ang Patterson [facility], Encounter Date: 04/09/2024 Results Created Date Observation Date Name Description Value Unit Range Abnormal Flag Note LastModifiedBy Organization Detail LastModifiedTime 10/01/19 24 10/02/2023 HELIC OBACT ER PYLOR I AG, EIA, STOOL helicobacter pylori Ag, EIA, stool SEE NOTE HELIC OBACT ER PYLOR I AG, EIA, STOOL Micro Numbe r: [id number] Test Statu s: Final Speci men [...] Range : Not Detec leti Not Available [facility] [address], [place], [address], 10/02/2023 13:18:31 04/07/20 24 04/07/2024 COLOG UARD cologuard result reportable NEGATI VE negati ve normal NEGAT JAMEY TEST RESUL T. A negat jamey Colog uard resul t indic ates a low likel ihood that a color ectal cance r (CRC) or advan james adeno ma (colton omato us polyp s with more advan james pre-m align ant featu res) is prese nt. [facility] e that a perso n with a [...] of 10,00 0 indiv idual s at [facility] [facility] risk for color ectal cance r [...] asymp tomat ic indiv idual s at [facility] risk for color ectal cance r. Follo wing a negat jamey Colog uard resul t, the Ameri can Cance r Socie ty and U.S. Multi -Soci ety Task Force scree audra guide lines recom mend a Colog uard re-sc tayler ng inter mariana of 3 years . [...] 112:1 016-1 030. TEST DESCR IPTIO N: Galateo site algor ithmi c genesis sis of [...] years or older , who are at [facility] for color ectal cance r (CRC) . Colog uard has been appro rohan for use by the [place]. FDA. The perfo rmanc e of Colog uard was estab lishe d in a cross secti onal study of [facility] adult s aged 50-84 . Colog [...] study of 0 indiv idual s at [facility] risk for color ectal cance r who [...] d [facility] locat ion: www.e xactl abs.c om/re deborah . Addit ional descr iptio n of the Colog uard test proce ss, warni ngs and preca ution s can be found at www.c lyssaogabel thomasd.c om. Not Available [employer] (Cologuard Orders Only) [address], [place], [address], 04/11/2024 17:19:08 12/13/19 24 12/13/2023 CT, abdom en + pelvi s, w/ contr ast No observ ation record ed. [address], [place], [address], 12/23/2023 09:42:22 12/30/19 24 12/30/2023 CT, cervi bimal spine , w/o contr ast No observ ation record ed. [email or web address] [address], [place], [address], 12/30/2023 14:14:10 12/30/19 24 12/30/2023 XR, lumbo sacra l spine , 2 or 3 view No observ ation record ed. [email or web address] [address], [place], [address], 12/30/2023 14:14:21 01/22/20 24 01/22/2024 XR, chest No observ ation record ed. [address] [address], [place], [address], 01/22/2024 11:16:05 01/22/20 24 01/22/2024 LDCT, chest , for lung cance r scree adura No observ ation record ed. [address] [employer], [place], [address], 01/22/2024 17:06:54 01/22/20 24 01/22/2024 CT, angio gram, chest , w/ contr ast No observ ation record ed. [address] [employer], [place], [address], 03/12/2024 11:08:31 02/24/20 24 02/24/2024 US, doppl er echoc ardio gram No observ ation record ed. [address] [address], [place], [address], 03/12/2024 10:02:16 03/25/20 24 03/25/2024 XR, chest , 2 view No observ ation record ed. [address] [employer], [place], [address], 03/31/2024 15:49:25 03/25/20 24 03/25/2024 CT, angio gram, chest , w/ contr ast No observ ation record ed. [address], [place], [address], 03/31/2024 15:49:25 04/02/20 24 04/02/2024 CT, brain , w/o contr ast No observ ation record ed. [address], [place], [address], 04/09/2024 11:57:47 04/02/20 24 04/02/2024 XR, chest No observ ation record ed. [address], [place], [address], 04/09/2024 11:57:47 04/29/20 24 04/08/2024 imagi ng/di agnos tic resul t No observ ation record ed. [address], [place], [address], 04/29/2024 09:51:53 Result Notes None recorded. Problems Name Problem SNOMED Code Status Onset Date Resolution Date Notes Provider Name and Address Organization Details Recorded Time Depressive disorder 82705273 Active 2022 Ang Patterson MD [address], [place], [address], [employer] 3 15:00:33 Anxiety disorder 671764108 Active 2022 Ang Patterson MD [address], [place], [address], [employer] 3 15:00:39 Posttraumat ic stress disorder 32490352 Active 2022 Ang Patterson MD [address], [place], [address], [employer] 3 15:00:45 Obesity 749742698 Active 2022 Ang Patterson MD [address], [place], [address], [employer] 3 15:01:02 Chronic neck pain 5745114821785 Active 2022 Ang Patterson MD [address], [address], [place], [address], [employer] 3 15:03:12 Chronic low back pain 373009102 Active 2022 Ang Patterson MD [address], [address], [place], [address], [employer] 3 15:03:20 Cervical spondylosis without myelopathy 028975233 Active 2022 Ang Patterson MD [address], [address], [place], [address], [employer] 3 15:17:42 Ex-smoker 5091004 Active 2022 Ang Patterson MD [address], [address], [place], [address], [employer] 3 15:17:55 Degeneratio n of cervical interverteb ral disc 75365794 Active 2022 Ang Patterson MD [address], [place], [address], [employer] [facility] 3 14:38:13 Otalgia of right ear 8725255584 Active 2022 Ang Patterson MD [address], [place], [address], [employer] 3 09:56:32 Chronic idiopathic constipatio n 09135192 Active 2022 Ang Patterson MD [address], [place], [address], [employer] 3 09:58:26 Gastroesoph ageal reflux disease without esophagitis 759852996 Active 2022 Ang Patterson MD [address], [place], [address], [facility] [employer] [facility] 3 09:59:58 Xerostomia 87198721 Active 2022 Ang Patterson MD [address], [place], [address], [facility] [employer] [facility] 3 10:05:03 Anemia 890170611 Active 2022 Ang Patterson MD [address], [place], [address], [facility] [employer] [facility] 3 14:59:07 Vitamin D deficiency 68796902 Active 2023 Ang Patterson MD [address], [place], [address], [facility] [employer] [facility] 4 10:31:01 Hyperlipide ana 41617413 Active 2023 Ang Patterson MD [address], [place], [address], [facility] [employer] [facility] 4 10:31:30 Pain of bilateral hands 3787302770672 9109 Active 2023 Ang Patterson MD [address], [address] [address], [place], [address], [facility] [employer] [facility] 4 10:34:43 Intussuscep tion of small intestine 802145840 Active 2023 SHIRA Mckeon [address], [address], [place], [address], [facility] [facility] 4 14:12:52 Pulmonary embolism 66313677 Active 2023 Ang Patterson MD [address], [place], [address], [facility] [employer] [facility] 4 10:05:37 Pulmonary embolism with pulmonary infarction 2347797899856 Active 2023 Ang Patterson MD [address] [facility], [address] [address], [place], [address], [facility] [employer] [facility] 10:13:28 Dyspnea on exertion 51101510 Active 2023 Ang Patterson MD [address] [facility], [address] [address], [place], [address], [facility] [employer] [facility] 15:57:53 Tremor 78533426 Active 2023 Ang Patterson MD [address] [facility], [facility] [address], [place], [address], [facility] [employer] [facility] 11:59:25 Problem Notes None recorded. Procedures Surgical History Date Name Laterality Status Provider Name and Address Organization Details Recorded Time 03/31/2024 Transition al_Care_Ma nagement completed [facility] [employer] [facility] 03/31/2024 15:42:49 03/12/2024 Transition al_Care_Ma nagement completed [facility] [employer] [facility] 03/12/2024 09:52:22 Imaging Results Imaging Date Name Status LastModified by Organization Details LastModified Time 12/13/2023 CT, abdomen + pelvis, w/ contrast completed [address], [address], 12/23/2023 09:42:22 12/30/2023 CT, cervical spine, w/o contrast completed [address], [address], 12/30/2023 14:14:10 12/30/2023 XR, lumbosacral spine, 2 or [address], [place], [address], 12/30/2023 14:14:21 01/22/2024 XR, chest completed [email or web address] [address], [address], 01/22/2024 11:16:05 01/22/2024 LDCT, chest, for lung cancer screening completed [address], [place], [address], 01/22/2024 17:06:54 01/22/2024 CT, angiogram, chest, w/ contrast completed [address] [employer] [employer], [place], [address], 03/12/2024 11:08:31 02/24/2024 US, doppler echocardiogram completed [address], [address], 03/12/2024 10:02:16 03/25/2024 XR, chest, 2 view completed [address] [address], [place], [address], 03/31/2024 15:49:25 03/25/2024 CT, angiogram, chest, w/ contrast completed [address] [address], [place], [address], 03/31/2024 15:49:25 04/02/2024 CT, brain, w/o contrast completed [address] [address], [place], [address], 04/09/2024 11:57:47 04/02/2024 XR, chest completed [address], [address], 04/09/2024 11:57:47 04/08/2024 imaging/diagnostic result completed [address], [address], 04/29/2024 09:51:53 Procedure Notes None recorded. Medical [...] % 132 mm[Hg] 72 mm[Hg] Alexx [employer] [facility] [employer] [facility] 4 10:05:54 Date Recorded Body mass index (BMI) Body weight Provider Name and Address Organization Details Last Updated DateTime 10/24/2023 32.5 kg/m2 49172.86 g Ang Patterson MD [address], [address], [facility] [employer] [facility] 10/24/2023 10:40:55 Date Recorded Body height Body temperature Heart rate Oxygen saturation Oxygen saturation in Arterial blood by Pulse oximetry Body mass index (BMI) Body weight Systolic blood pressure Diastolic blood pressure Provider Name and Address Organization Details Last Updated DateTime 4 165.1 cm 98.7 [degF] 89 /min 98 % 98 % 33 kg/m2 91893.4 4 g 173 mm[Hg] 102 mm[Hg] Tana Brown MA [facility] [employer] [facility] 4 14:07:48 Date Recorded Body height Body mass index (BMI) Body weight Body temperature Provider Name and Address Organization Details Last Updated DateTime 03/12/2024 165.1 cm 30.5 kg/m2 77971.75 g 98.2 [degF] Alexx Resendiz [facility] [employer] [facility] 03/12/2024 09:56:29 Date Recorded Heart rate Respiratory rate Oxygen saturation Oxygen saturation in Arterial blood by Pulse oximetry Inhaled oxygen flow rate Systolic blood pressure Diastolic blood pressure Provider Name and Address Organization Details Last Updated DateTime 4 100 /min 24 /min 90 % 90 % 2 L/min 146 mm[Hg] 88 mm[Hg] Ang Patterson MD [address] [facility], [address], [facility] [employer] [facility] 4 10:41:10 Date Recorded Body height Body mass index (BMI) Body weight Body temperature Systolic blood pressure Diastolic blood pressure Provider Name and Address Organization Details Last Updated DateTime 4 165.1 cm 32.1 kg/m2 92617.3 8 g 98.1 [degF] 144 mm[Hg] 90 mm[Hg] [employer] 4 15:47:52 Date Recorded Heart rate Respiratory rate Oxygen saturation Oxygen saturation in Arterial blood by Pulse oximetry Inhaled oxygen flow rate Provider Name and Address Organization Details Last Updated DateTime 4 110 /min 22 /min 94 % 94 % 2 L/min Ang Patterson MD [address], [address], [employer] 4 16:08:35 Date Recorded Body height Body mass index (BMI) Body weight Body temperature Respiratory rate Systolic blood pressure Diastolic blood pressure Provider Name and Address Organization Details Last Updated DateTime 165.1 cm 31.8 kg/m2 47935.4 9 g 97.9 [degF] 16 /min 146 mm[Hg] 86 mm[Hg] [employer] [facility] 4 11:51:44 Date Recorded Heart rate Oxygen saturation Oxygen saturation in Arterial blood by Pulse oximetry Provider Name and Address Organization Details Last Updated DateTime 04/09/2024 96 /min 96 % 96 % Ang Patterson MD [address], [address] [place] [address] [employer] 04/09/2024 12:43:19 Social History Question Answer Notes LastModified by Organizat ion Details LastModified Time Tobacco Smoking Status Former Smoker Ang Patterson MD [address], [address], [facility] [employer] 04/23/2023 15:18:12 Do You Have An Advance [...] Or The Highest Degree You Have Received? [id number] Information not available 04/23/2023 Have There Been [...] Do You Have A Medical Power Of Drill Press Hand? No Information not available 04/23/2023 How Many [...] Anxious, Or Unable To Sleep At Night)? [id number] Information not available 04/23/2023 Do You Use [...] HEARING PROBLEMS N MUMPS N SHINGLES N BOWEL PROBLEMS N FEMALE PROBLEMS / INFECTIONS N DEPRESSION (INCLUDING POST ) N FAILED BACK SYNDROME N STROKE/TIA N THYROID DISEASE N ULCERS N BENIGN PROSTATIC HYPERPLASIA N MEASLES N CERVICALGIA N HYPOTENSION N TB SKIN TEST N MYOCARDIAL INFARCTION N PARAPELGIA N OBESITY [...] BLEEDING N BLOOD CLOTS N ASTHMA N Abdominal Pain N CATARACTS N ARTERIAL INSUFFICIENCY N ERECTILE DYSFUNCTION N GI PROBLEMS N CHF N Low Testosterone N NEUROPATHY N INFERTILITY N AIDS/HIV N FRACTURES N CHEMOTHERAPY / RADIATION N VISION/EYE PROBLEMS N LIVER DISEASE N HYPERTENSION N TOURETTE'S N ANXIETY DISORDER N BLOOD TRANSFUSION N ANEMIA/BLOOD DISORDER N CHRONIC EAR INFECTIONS N BRONCHITIS N TUBERCULOSIS N GLAUCOMA N FOOT PROBLEM N DIVERTICULITIS N CHICKENPOX N SLEEP APNEA N BACK INJECTIONS N ALLERGIES/HAYFEVER N INFECTIOUS DISEASE N HEART ARRHYTHMIA N PROSTATE N ESRD N INSOMNIA N HIGH CHOLESTEROL / HYPERLIPIDEMIA N HYPERTHYROIDISM N EYE PROBLEMS N PVD N EATING DISORDER N EDEMA N CHRONIC PAIN SYNDROME N CAROTID BLOCKAGE N CONSTIPATION N BACK / NECK PROBLEMS N HAVE YOU BEEN HOSPITALIZED OR SEEN IN [facility] IN THE PAST YEAR ? [...] N PAIN N HERPES N DEMENTIA N HEADACHES/MIGRAINES N SEIZURES/EPILEPSY N VASCULAR DISEASE N PACEMAKER N DIZZINESS N HEART DISEASE/HEART PROBLEMS N KIDNEY DISEASE N DEVELOPMENTAL OR BEHAVIORAL DISORDERS N MULTIPLE SCLEROSIS N SCARLET FEVER N MENTAL DISORDER/ILLNESS N NEUROPSYCHOLOGICAL N CARDIAC ARRHYTHMIA N CANCER: SPECIFY N PNEUMONIA N ATRIAL FIBRILLATION N Gall Stones N PULMONARY EMBOLISM N AUTOIMMUNE DISEASE N Gynecological HistoryNo gynecological history recorded. Obstetrics History GPAL:G 3 P 0 0 0 0 Past Encounters Encounter ID Performer Location Encounter Start Date Encounter Closed Date Diagnosis/Indication Diagnosis SNOMED-CT Code Diagnosis ICD10 Code Diagnosis Note [id number] Ang Patterson MD [address] [address] 04/23/2023 14:37:09 04/23/2023 15:24:12 Depressive disorder 18078427 F32.A Anxiety disorder F41.9 Posttrauma tic stress disorder 80909177 F43.10 Obesity 968394082 E66.9 Ex-smoker 2211629 Z87.89 1 Chronic neck pain 208826 1606 107 M54.2 Chronic low back pain 27 5181659 M54.50 Cervical s pondylosis without myelopathy 377222944 M47.836 [id number] Ang Patterson MD [address] [address] 05/14/2023 17:26:14 05/14/2023 17:49:44 Chronic neck pain 3923994410 107 M54.2 Chronic low back pain 27 4140401 M54.50 Cervical s pondylosis without myelopathy 565470437 M47.812 Depressive disorder 3548 9007 F32.A Anxiety disorder F41.9 Posttrauma tic stress disorder 60978265 F43.10 Obesity 477518620 E66.9 Ex-smoker 0215211 Z87.89 1 Degenerati on of cervical intervertebral disc 08501467 M50.30 [id number] Ang Patterson MD [address] [address] 06/04/2023 09:43:47 06/04/2023 10:27:29 Adult health examination 562421062 Z00.00 Chronic neck pain 797185 9132 107 M54.2 Chronic low back pain 27 6203885 M54.50 Obesity 301422808 E66.9 Ex-smoker 9440714 Z87.89 1 Otalgia of right ear 551 8627270 H92.01 Screening colonoscopy 44 1270079 Z12.11 Chronic id iopathic constipation 97776167 K59.04 Gastroesop hageal reflux disease without esophagitis 182512750 K21.9 Screening mammography 24 873752 Z12.31 Cervical s pondylosis without myelopathy 555436510 M47.812 Xerostomia 40394102 R68. 2 [id number] Ang Patterson MD [address] [address] 06/25/2023 14:39:36 06/25/2023 15:24:08 Chronic neck pain 4377658689 107 M54.2 Chronic low back pain 27 0717402 M54.50 Obesity 647900377 E66.9 Ex-smoker 0716663 Z87.89 1 Chronic id iopathic constipation 74020880 K59.04 Gastroesop hageal reflux disease without esophagitis 907856617 K21.9 Cervical s pondylosis without myelopathy 101909757 M47.812 Xerostomia 71776595 R68. 2 Anemia 369730883 D64.9 [id number] Ang Patterson MD [address] [address] 07/18/2023 15:27:03 07/18/2023 15:47:18 Chronic neck pain 9542870034 107 M54.2 Chronic low back pain 27 9178274 M54.50 Obesity 209437512 E66.9 [id number] Ang Patterson MD [address] [address] 08/22/2023 10:25:27 08/22/2023 10:43:48 Obesity 254225792 E66.9 Gastroesop hageal reflux disease without esophagitis 612921954 K21.9 Depressive disorder 3548 9007 F32.A [id number] Ang Patterson MD [place] [address] 10/24/2023 09:54:39 10/24/2023 10:45:37 Gastroesophageal reflux disease without esophagitis 270324345 K21.9 Obesity 756450511 E66.9 Vitamin D deficiency 347 78886 E55.9 Hyperlipidemia 02718119 E78.5 Pain of bi lateral hands 6819779122 7023785 M79.641 Screening colonoscopy 44 0255464 Z12.11 [id number] SHIRA Mckeon [address] [address] 01/29/2024 13:56:02 01/29/2024 14:34:01 Intussusception of small intestine 921567821 K56.1 Chronic id iopathic constipation 65429725 K59.04 Obesity 934044242 E66.9 [id number] Ang Patterson MD [address] [address] 03/12/2024 09:48:48 03/12/2024 11:12:17 Vitamin D deficiency 11740322 E55.9 Hyperlipidemia 39904283 E78.5 Gastroesop hageal reflux disease without esophagitis 917446171 K21.9 Obesity 907208997 E66.9 Pain of bi lateral hands 5158650076 0825233 M79.641 Hospital i npatient stay within past 30 days 2259100035 106 Z76.89 Transition of care 01465 00087 105 Z75.8 Pulmonary embolism 11728 003 I26.99 Cervical s pondylosis without myelopathy 977092894 M47.812 Pulmonary embolism with pulmonary infarction 7912855918 102 I26.99 [id number] Ang Patterson MD [address] [address] 03/31/2024 15:36:12 03/31/2024 16:29:17 Transition of care 2388803804 105 Z75.8 Pulmonary embolism 37652 003 I26.99 Vitamin D deficiency 347 27534 E55.9 Hyperlipidemia 08059991 E78.5 Gastroesop hageal reflux disease without esophagitis 933766475 K21.9 Obesity 084023090 E66.9 Pain of bi lateral hands 8678828465 8547928 M79.641 Cervical s pondylosis without myelopathy 725253697 M47.812 Pulmonary embolism with pulmonary infarction 0812013813 102 I26.99 Dyspnea on exertion 6084 5006 R06.09 Screening for malignant neoplasm of colon 700755994 Z12.11 [id number] Ang Patterson MD [facility] [address] [address] 04/09/2024 11:38:36 04/09/2024 14:39:32 Transition of care 6093809172 105 Z75.8 Pulmonary embolism 48428 003 I26.99 Vitamin D deficiency 347 75957 E55.9 Hyperlipidemia 90215484 E78.5 Gastroesop hageal reflux disease without esophagitis 765962158 K21.9 Obesity 861779704 E66.9 Pain of bi lateral hands 0936145511 5543253 M79.641 Cervical s pondylosis without myelopathy 111404063 M47.812 Pulmonary embolism with pulmonary infarction 8355611452 102 I26.99 Dyspnea on exertion 6084 5006 R06.09 Tremor 71161728 R25.1 Hospital i npatient stay within past 30 days 7970762094 106 Z76.89 Health Concerns Section Related Observation [...] PAY* Ka rla Shallenberger 03/31/2024 1 [place] [employer] [place] [employer] Anat Phelan [id number] Anat Phelan 04/09/2024 1 [place] Anat Phelan [id number] Anat Phelan Notes Date Note Type Note [...] PTSD and is f/u with Psych at [facility] for it. Pt is on meds by them and is doing overall well with it. Denies any mood swings/SI/HI. Pt was f/u with Endo at [facility] and is on chronic Prednisone from them for last couple years. Ang Patterson MD [address] [place] [address] [address], [place], [address], [place] - [facility] [employer] 10/24/2023 10:42:51 01/29/2024 text/html Anat alvarez is [...] SHIRA Mckeon [address], [address], [place], [address], [facility] [employer] [facility] 01/29/2024 14:33:48 03/12/2024 text/html Hospital fuv:Pt has some insurance issues going on. Pt was admitted to [facility] on 02/22/24 due to not feeling well. Pt was found to have Pneumonia, PE, pulmonary infarction, pulmonary edema. Pt has finished her antibiotics and she is on Eliquis and [place]. Pt is needing refill on them. Pt will be seeing Pulmo at [facility] in few weeks. Pt has home O2 [...] PTSD and is f/u with Psych at [facility] for it. Pt is on meds by them and is doing overall well with it. Denies any mood swings/SI/HI. Pt was f/u with Endo at [facility] and is on chronic Prednisone from them for last couple years. Ang Patterson MD [address], [facility] [address], [place], [address], [employer] 03/12/2024 11:10:25 03/31/2024 text/html Hospital fuv: Pt was seen in ED again on 03/25/24 due to SOB and chest pain and got work up done and was found to have Pneumonia. So pt was d/c on Z-jeanmarie and hydrocodone from ED. Pt has finished Z-jeanmarie and is feeling much better now. No fever/chills/n/v/d/sp utum. Pt will be seeing Pulmo at [facility] on 04/08/24. Pt has home O2 set up done already and she has with her. Pt was admitted to [facility] on 02/22/24 due to not feeling well. Pt was found to have Pneumonia, PE, pulmonary infarction, pulmonary edema. Pt has finished her antibiotics and she is on Eliquis and [place]. Pt is needing refill on them. Pt [...] PTSD and is f/u with Psych at [facility] for it. Pt is on meds by them and is doing overall well with it. Denies any mood swings/SI/HI. Pt was f/u with Endo at [facility] and is on chronic Prednisone from them for last couple years. Ang Patterson MD [address] [place] [address], [facility] [address], [place], [address], [facility] [employer] 03/31/2024 16:13:31 04/09/2024 text/html Hospital fuv: Pt [...] body pain and she is asking for [place]. Pt is not taking her Gabapentin. Pt was seen couple weeks ago and was given [place] by me # 40 on 03/21/24 and [...] week. Pt is f/u with Pulmo at [facility] for her Pneumonia, PE and chronic hypoxia and is on meds by them. Pt has home O2 set up for her home. Pt was admitted to [facility] on 02/22/24 due to not feeling well. Pt was found to have Pneumonia, PE, pulmonary infarction, pulmonary edema. Pt has finished her antibiotics and she is on Eliquis and [place]. Pt is needing refill on them. Pt [...] PTSD and is f/u with Psych at [facility] for it. Pt is on meds by them and is doing overall well with it. Denies any mood swings/SI/HI. Pt was f/u with Endo at [facility] and is on chronic Prednisone from them for last couple years. Ang Patterson MD [address] [facility], [facility] [address], [place], [address], [place] [facility] [employer] 04/09/2024 14:38:39 OBGyn Episode No OBEpisode recorded.
--- OUTSIDE RECORDS SUMMARY | 2024-11-24 10:48 | XMS_ITS | Referral Summary ---
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 on file Not on file Not on file Last Filed Vital Signs Vital Sign Reading Time Taken Comments Blood Pressure 135/81 07/15/2024 10:44 AM LEASE ADMINISTRATION ANALYST Pulse 70 07/15/2024 10:44 AM LEASE ADMINISTRATION ANALYST Temperature 36.7 C (98 F) 07/15/2024 10:44 AM LEASE ADMINISTRATION ANALYST Respiratory Rate 18 05/10/2021 3:55 PM CDT Oxygen Saturation 97% 05/10/2021 3:55 PM CDT Inhaled Oxygen Concentration - - Weight 88 kg (194 lb) 07/15/2024 10:44 AM LEASE ADMINISTRATION ANALYST Height 165.1 cm (5' 5 ) 07/15/2024 10:44 AM LEASE ADMINISTRATION ANALYST Body Mass Index 32.28 07/15/2024 10:44 AM LEASE ADMINISTRATION ANALYST Plan of Treatment Not on file Procedures Procedure Name Priority Date/Time Associated Diagnosis Comments HEPATITIS C ANTIBODY Routine 07/15/2024 12:49 PM LEASE ADMINISTRATION ANALYST Effusion of joint, unspecified location Arthralgia, unspecified joint from Last 3 Months or Most Recently Relevant to Health Maintenance Results * Hepatitis C antibody Blood (07/15/2024 12:49 PM LEASE ADMINISTRATION ANALYST) Hep C Ab Nonreactive Nonreactive Comment:Antibodies to HCV no t detected. Does NOT exclude the possibility of recent exposure to HCV. Current interpretive data was last revised on 22 Blood 07/15/2024 12:4 9 PM LEASE ADMINISTRATION ANALYST 07/15/2024 1:25 PM LEASE ADMINISTRATION ANALYST Jessie Sherwood MD LAB MICROBIOLOGY - GENERAL ORDERABLES Final Result [facility] Department [place] [address] from Last 3 Months or Most Recently Relevant to Health Maintenance Insurance [employer] [place] [facility] Care Teams Vp Revenue Cycle Relationship Specialty Start Date End Date Keven Gonzalez DO [address] [place] [address] PCP - General Family Medicine 05/29/24 Kendrick Chacon MD Emergency Medicine 04/27/20 Edy Yadav MD [address] [facility] [address] Consulting Physician Pain Management 04/28/21
--- OUTSIDE RECORDS SUMMARY | 2024-11-24 10:48 | XMS_ITS | CONTINUITY OF CARE DOCUMENT ---
Author Name ramakrishna durbin Address Unknown Organization [facility] Address [address] [place] [address] [address] [place] [address] Phone [phone] Care Team Providers Care Electrical Supervisor Name Role Phone Iggy ANGELES, Shavonne Miramontes Unavailable CHARLOTTE DOWD MD Unavailable CHARLOTTE DOWD MD Unavailable PROBLEMS Condition Status Date Provider Notes Cardiology examination active Shavonne mensah MD Pulmonary embolism active Shavonne Parkinson MD Tremor active Shavonne Parkinson MD ENCOUNTERS Date Type Provider Location Encounter Diag nosis - In-person encounter Office Visit Shavonne Parkinson MD [place] [facility] Cardiology examinationPulmonary embolismTremor VITAL SIGNS Date Observation Value Provider Body Mass Index (Ratio) 32.95 kg/m2 Harry as Luis blood pressure, diastolic 78 mm[Hg] Li [employer]ic blood pressure, systolic 140 mm[Hg] Iris [employer] blood pressure, diastolic 78 mm[Hg] Va lerrolando Mosqueda blood pressure, systolic 140 mm[Hg] Nery [...] Policy type / Coverage type Jennifer red democrat [place] MEDICAID (2) Medicaid [id number] ADVANCE DIRECTIVES Name Date DISCUSSED - NO [...] is normal. Shavonne Parkinson MD Cardiology:03/25/24 [address] [facility] MPRESSION: 1 . Pulmonary embolism with [...]
--- NOTE | 2024-11-24 13:12 | WPDPFTINT ---
PFT Procedure Performed PFT Procedure Performed Spirometry with Pre/Post Bronchodilator Plethysmography (Lung Vol) Diffusing Cap (DLCO) Flow Vol Loop PFT Interpretation Lung volumes were measured using the body plethysmography method. The elevated residual volume (RV) could be due to air trapping, while the vital capacity is also mildly diminished. Spirometry showed decreased expiratory flow rates and a reduced FEV1/FVC ratio of 58%, indicative of obstructive airway disease. Following administration of a bronchodilator, there was a significant increase in expiratory flow rates. Lung diffusion capacity is within the normal range at 74% predicted. The flow volume loop is consistent with obstructive airway disease. In comparison to the previous study in 2023, the post-bronchodilator forced vital capacity (FVC) is now lower by 0.25 L, while the FEV1 is also lower by approximately 0.4 L. Lung diffusion capacity is essentially unchanged. The flow-volume loop remains consistent with obstructive airway disease. In the current setting of obstructive airway disease, the diminished forced vital capacity raises questions of coexisting possible restriction or a nonspecific pattern, although the normal total lung capacity excludes significant restrictive respiratory disease. Clinical correlation is advised. Impression: Moderate obstructive airway disease with a significant response to bronchodilators on this testing. Lung diffusion capacity remains within the normal range.
== END 2024-11-24 09:33 | disposition home or self-care (01) ==
PROVIDERS: PCP Family Medicine; Visit Provider Internal Medicine Pulmonary Disease
DX: J18.9 Pneumonia, unspecified organism (principal); R91.8 Other nonspecific abnormal finding of lung field
CPT/HCPCS: 71250; 94060; 94726; 94729

== ENCOUNTER 2024-12-07 12:18 | Emergency (ER) | payer OTHER, SELFPAY ==
--- NOTE | 2024-12-07 12:19 | ED.URI ---
HPI - URI/Sore Throat General Chief Complaint: Upper Respiratory Infection Stated Complaint: cold symptoms Time Seen by Provider: 12/07/24 12:19 Source: patient Mode of arrival: ambulatory Limitations: no limitations History of Present Illness HPI Narrative: Patient is a 41-year-old female presents with 2-3 days of productive cough and wheezing. Patient has also lost her voice. Denies any fever, chills, nausea, vomiting, diarrhea, sore throat from her pain. Has not taken anything from symptoms. Related Data Home Medications ?Medication ?Instructions ?Recorded ?Confirmed ?Last Taken ?Type citalopram 40 mg tablet 40 mg PO DAILY 09/06/22 11/10/24 06/09/24 History clonazepam 0.5 mg tablet 0.5 mg PO BID PRN Anxiety 03/22/23 11/10/24 06/09/24 History atorvastatin 10 mg tablet 10 mg PO QPM 10/01/24 11/10/24 Unknown History bupropion HCl 300 mg 24 hr tablet, 300 mg PO DAILY 10/01/24 11/10/24 Unknown History extended release hydroxychloroquine 200 mg tablet 200 mg PO Q12H 10/01/24 11/10/24 Unknown History ergocalciferol (vitamin D2) 1,250 50,000 unit PO WEEKLY 11/10/24 11/10/24 Unknown History mcg (50,000 unit) capsule omeprazole 40 mg capsule,delayed 40 mg PO DAILY 11/10/24 11/10/24 Unknown History release Allergies Allergy/AdvReac Type Severity Reaction Status Date / Time naproxen AdvReac Gastrointestinal Verified 12/07/24 12:44 Upset Review of Systems Review of Systems: All systems reviewed & are unremarkable except as noted in HPI and below Constitutional: Constitutional: Denies chills, Denies fatigue, Denies fever(s), Denies headache(s), Denies malaise and Denies weakness Eyes: Eyes: Denies blurry vision, Denies itchy eyes and Denies loss of vision ENT: Denies otalgia, Denies headache(s), Denies nasal congestion, Denies sinus pain and Denies sore throat Cardiovascular: Cardiovascular: Denies chest pain, Denies irregular heart rhythm and Denies dyspnea Respiratory: Respiratory: Reports cough, Denies dyspnea and Reports wheezing Gastrointestinal: Gastrointestinal: Denies abdominal pain, Denies diarrhea, Denies nausea and Denies vomiting Musculoskeletal: Musculoskeletal: Denies back pain, Denies myalgias and Denies arthralgias Integumentary/Breasts: Skin/Breast: Denies pruritus and Denies rash Neurologic: Denies headache(s), Denies loss of vision and Denies weakness Psychiatric: Psychiatric: Reports no additional psychiatric complaints Endocrine: Endocrine: Denies fatigue Allergic/Immunologic: Allergic/Immunologic: Denies itchy eyes PMFSH Past Medical History Medical History Rheumatoid arthritis Chronically dry eyes Former cigarette smoker History of rhabdomyolysis December 2023 Spondylosis, lumbosacral Degenerative disc disease, lumbar L4-S1 Degenerative disc disease, cervical C4-C7 Chronic back pain Neck and low back Irritable bowel syndrome Gastroesophageal reflux disease Chronic obstructive pulmonary disease Labral tear of right hip joint Asthma Depression Anxiety Surgical History Surgical History History of colonoscopy with polypectomy (~1999) History of right cataract surgery Status post anal fissurectomy History of section (2016) X1 History of tonsillectomy History of cholecystectomy Family History Family History Father Diabetes mellitus Hypertension Mother Hypertension Osteoarthritis Rheumatoid arthritis Grandparent Breast cancer Sibling Lupus Social History Social History Social History: She is . She lives at home with her 7-year-old daughter she has 2 grown sons other well. She smoked 1 pack of cigarettes per day for twenty-two years but quit in 2020. She denies any significant alcohol use. She denies illicit substance use. She works at an [employer]. Surrogate medical decision maker: Flakito Pehlan, son. Code status: Full code. Smoking packs per day: 1 Smoking cigarettes per day: 20.0 Years smoked: 20 Smoking pack-years: 20.00 Smoking status: Former smoker Tobacco type: cigarettes Alcohol intake: never Substance use: never Substance use type: does not use Other substance usage details: denies IVDU Do You Feel Safe in your Home?: Yes Lack of Transportation: No Lack of Food: Never True Current Housing: I Have Housing Concerned About Future Housing: No Difficulty Paying Gas/Electric Bills: No Difficulty Paying for Meds: No Currently Unemployed: No Education: High School Diploma/GED Difficulty w/ Childcare or Family Care: No Living arrangements: with family Additional living arrangements comments: sons and daughter Spiritual care concerns: No Comments At time of signature, agree with nursing past medical, surgical, social and family history. There is no relevant family history pertinent to the presenting complaint. Exam Const: General: cooperative, healthy appearing, comfortable, no acute distress and well nourished Nutritional Appearance: well nourished Orientation/consciousness: patient oriented x3 Limitations: no limitations HENMT: Head: normal to inspection, normocephalic and atraumatic Ears: hearing grossly normal bilaterally, external ears normal, TM's normal bilaterally, EAC's normal and no periauricular adenopathy Face/Nose/Sinus: Normal external nose present, Normal nasal mucous membranes and turbinates present, normal facial exam, sinuses nontender and face symmetric Face and sinus: normal facial exam, sinuses nontender and face symmetric Mouth: Yes Normal oral and palatal mucosa present, Yes lip normal, Yes tongue normal, Yes Normal salivary glands and ducts present, Yes oropharynx normal and Yes moist mucous membranes Teeth and gingiva: dentition normal Throat: posterior oropharynx normal, tonsils normal and uvula midline Eyes: General: appearance normal, both eyes and all related structures Alignment and Position: alignment normal and position normal Periorbital: periorbital findings normal Eyelids: eyelids normal Pupils: Equal, round and reactive pupils present Neck: Neck: normal visual inspection, full ROM, no lymphadenopathy and supple Chest: Chest palpation & inspection: normal inspection of the chest and normal palpation of entire chest wall Resp: Effort & Inspection: normal respiratory effort, able to speak in complete sentences and Actively coughing actively coughing Auscultation: clear to auscultation bilaterally, no crackles, no rales, no rhonchi and no wheezes Cardio: Rate: regular rate Rhythm: regular rhythm Heart sounds: S1 normal heart sound present and S2 normal heart sound present GI: Inspection: normal to inspection Skin: General skin exam: normal color and no rashes or lesions noted Neuro: General: patient oriented x3 and moves all extremities Cranial nerves: Yes Equal, round and reactive pupils present Speech: normal speech Gait exam (Neuro): Normal gait present Extrem: General: normal to inspection, full ROM and no edema Psych: Appearance: grossly normal and well kempt Mental Status: mental status grossly normal Speech and movement: Normal speech and movement present Affect: normal affect Attitude: cooperative Thought process: Normal thought process present Course Course Emergency Course: Discharge instructions reviewed with patient, as well as provided in writing per nursing staff. The instructions also include specific and strict return/GO TO THE ER as well as f/u information. All questions have been answered, and the patient deny any further questions with discharge and discharge plan. Portions of this record may have been created with voice recognition software Level of Care: Express Care Visit Vital Signs Vital signs: Vital Signs Temperature 36.4 C L 12/07/24 12:34 Pulse Rate 68 12/07/24 12:34 Respiratory Rate 18 12/07/24 12:34 Blood Pressure 105/67 12/07/24 12:34 Pulse Oximetry 99 12/07/24 12:34 Oxygen Delivery Room Air 12/07/24 12:34 Temperature 36.4 C L 12/07/24 12:34 Pulse Rate 68 12/07/24 12:34 Respiratory Rate 18 12/07/24 12:34 Blood Pressure 105/67 12/07/24 12:34 Pulse Oximetry 99 12/07/24 12:34 Oxygen Delivery Room Air 12/07/24 12:34 Reviewed MDM - URI/Sore Throat MDM Narrative Medical decision making narrative: Pt well hydrated appearing, in no respiratory distress, hemodynamically stable. Recommend supportive care. The patient is stable at time of discharge the clinical impression was discussed and the patient was given the opportunity to ask questions, which were addressed as completely as possible given the information available at present. Anticipatory guidance and return to care precautions were discussed and the importance of primary care follow-up was stressed and encouraged. The patient voiced understanding of the plan, indications to return, and the need for follow-up. Differential diagnosis considered: Bronchitis, Austin virus, strep pharyngitis, allergic rhinitis, upper respiratory tract infection, sinusitis, rhinosinusitis, nasopharyngitis. viral pharyngitis, otitis media, otitis externa, otitis effusion, foreign body, cerumen impaction, viral syndrome, and influenza.? Exam findings show no acute concerns or changes; patient is non-toxic appearing and is in no distress.? Patient is appropriate for outpatient treatment and follow-up.? Medical Records Attestation: I reviewed the patient's medical records. Lab Data Attestation: I reviewed the patient's lab results. Labs: Lab Results 12/07/24 Range/Units 12:56 POC Influenza A Ag Negative (Negative) POC Influenza B Ag Negative (Negative) POC SARS CoV-2 Ag Negative (Negative) Discharge Plan Discharge Clinical Impression: Upper respiratory infection with cough and congestion, History of asthma Patient Disposition: Home Condition: Stable Instructions: Upper Respiratory Infection (ED) Additional Instructions: Take antibiotic as prescribed. Take steroids in the morning with food. Use Tessalon Perles as needed for cough. Use inhaler with spacer as needed. Other symptomatic treatments include: -Alternate Tylenol and Motrin per package directions for fever or pain: Tylenol 650-1000mg by mouth every 4-6 hours. Do not exceed 4000mg in 24 hours. Advil (Ibuprofen) 600 mg by mouth every 6 hours. Do not exceed 2400mg in 24 hours. 8 AM: Tylenol 11 AM: Ibuprofen 2 PM: Tylenol 5 PM: Ibuprofen 8 PM: Tylenol 11 PM: Ibuprofen 2 AM: Tylenol 5 AM: Ibuprofen -Antihistamine medication such as Benadryl at night and Zyrtec/Claritin/Leena during the day can help improve symptoms. -Use Flonase twice a day for 5 days then daily to help reduce the inflammation and dry up your sinuses. -You can also use Sudafed or Mucinex. Be sure to drink plenty of water with these medications at least 8 ounces with every dose and it is important to drink 8 to 10 glasses of water per day. Water is a natural decongestant -Eat and drink things that are easy to swallow, like tea or soup, or popsicles. -Oral rinses such as: Salt water gargles and/or may use topical anesthetic (eg. Chloraseptic spray) or lozenges to relieve dryness or throat pain). -Frequent hand washing or hand confidential investigator is one of the best ways to prevent spread of infection. -Using a vaporizer or humidifier at night will also help thin secretions and help with coughing up phlegm. Call your Primary Care Doctor and make a follow-up appointment in 3 days. If your cough worsens, you develop a fever greater than 103, you develop shaking chills, a fast heartbeat, trouble breathing and/or feel you are are breathing much faster than usual, call your Primary Care Doctor or go to the ER. Patient Language: Jamaican Prescriptions: New benzonatate 100 mg capsule 100 mg PO BID PRN (Reason: cough) Qty: 14 0RF prednisone 20 mg tablet 40 mg PO DAILY 5 Days Qty: 10 0RF doxycycline monohydrate 100 mg tablet 100 mg PO BID 5 Days Qty: 10 0RF No Action clonazepam 0.5 mg tablet 0.5 mg PO BID PRN (Reason: Anxiety) albuterol sulfate 90 mcg/actuation HFA aerosol inhaler 2 puff inhalation Q4-6H PRN (Reason: shortness of breath or wheezing) 30 Days Qty: 8.5 0RF budesonide-formoterol 160-4.5 mcg/actuation HFA aerosol inhaler 1 puff inhalation Q12H Qty: 10.2 3RF ferrous sulfate [FeroSul] 325 mg (65 mg iron) tablet 325 mg PO DAILY Qty: 90 2RF famotidine 40 mg tablet 40 mg PO HS Qty: 90 0RF ergocalciferol (vitamin D2) 1,250 mcg (50,000 unit) capsule 50,000 unit PO WEEKLY omeprazole 40 mg capsule,delayed release(DR/EC) 40 mg PO DAILY hyoscyamine sulfate 0.125 mg tablet,disintegrating 0.125 mg PO .complex Qty: 30 0RF Rx Instructions: Take 1 tablet every 4 to 8 hours or as needed; maximum: 1.5 mg/day. methocarbamol 500 mg tablet 500 mg PO TID PRN (Reason: muscle spasm) Qty: 90 0RF citalopram 40 mg tablet 40 mg PO DAILY atorvastatin 10 mg tablet 10 mg PO QPM bupropion HCl 300 mg tablet extended release 24 hr 300 mg PO DAILY hydroxychloroquine 200 mg tablet 200 mg PO Q12H Eliquis 5 mg tablet 5 mg PO Q12HR 90 Days Qty: 180 0RF Rx Instructions: Take 10 mg twice daily till 03/09/2024 then 5 mg twice daily furosemide 20 mg tablet See Rx Instructions .ROUTE .COMPLEX Qty: 30 0RF Dose Instruction: TAKE 1 TABLET BY MOUTH DAILY Rx Instructions: TAKE 1 TABLET BY MOUTH DAILY Follow-up/Referrals: Gonzalez,Mafeth A., DO [Primary Care Provider] - 3 Days Time of Disposition: 13:15
[2024-12-07 12:34] VITALS: BP 105/67; PULSE 68; RESP 18; TEMP 36.4; O2SAT 99
[2024-12-07 12:57] LABS: EDCOVIDSCREEN Negative (Negative); EDINFLUASCREEN Negative (Negative); EDINFLUBSCREEN Negative (Negative)
--- OUTSIDE RECORDS SUMMARY | 2024-12-07 13:57 | XMS_ITS | Clinical Summary ---
Author Organization [facility] Address [address] [place] [address] Care Team Providers Care Precipitator Supervisor Name Role Phone Kendrick Chacon MD Primary Care Provider [phone] Source Comments [facility],non-owned Affiliates and Associated Physician Practices is amultiple site organization consisting of ambulatory clinics and hospital sitesin [place], [place], [place] and [place]. This disclosure is being madepursuant to the Care Everywhere program and may not contain all information available regarding this patient. 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
--- OUTSIDE RECORDS SUMMARY | 2024-12-07 13:58 | XMS_ITS | CONTINUITY OF CARE DOCUMENT ---
Author Name ramakrishna durbin Address Unknown Organization [facility] Address [address] [place] [address] [address] [place] [address] Phone [phone] Care Team Providers Care Clothing Presser Name Role Phone Iggy ANGELES, Shavonne Miramontes Unavailable [phone] CHARLOTTE DOWD MD Unavailable CHARLOTTE DOWD MD Unavailable PROBLEMS Condition Status Date Provider Notes Cardiology examination active Shavonne mensah MD Pulmonary embolism active Shavonne Parkinson MD Tremor active Shavonne Parkinson MD ENCOUNTERS Date Type Provider Location Encounter Diag nosis - In-person encounter Office Visit Shavonne Parkinson MD [place] [facility] Cardiology examinationPulmonary embolismTremor VITAL SIGNS Date [...] blood pressure, cuff size regular Va supriya Liusn ALLERGIES Allergy Name Onset Date Reaction Criticality [...] alliance party ID [place] MEDICAID (2) Medicaid [id number] ADVANCE DIRECTIVES Name Date DISCUSSED - NO [...] is normal. Shavonne Parkinson MD Cardiology:03/25/24 [address] [facility] MPRESSION: 1 . Pulmonary embolism with [...]
--- OUTSIDE RECORDS SUMMARY | 2024-12-07 13:58 | XMS_ITS | CONTINUITY OF CARE DOCUMENT ---
Author Name ramakrishna durbin Address Unknown Organization [facility] Address [address] [place] [address] [address] [place] [address] Phone [phone] Care Team Providers Care Contracts Analyst Name Role Phone Iggy ANGELES, Shavonne Miramontes Unavailable CHARLOTTE DOWD MD Unavailable [phone] CHARLOTTE DOWD MD Unavailable [phone] PROBLEMS Condition Status Date Provider Notes Cardiology examination active Shavonne mensah MD Pulmonary embolism active Shavonne Parkinson MD Tremor active Shavonne Parkinson MD ENCOUNTERS Date Type Provider Location Encounter Diag nosis - In-person encounter Office Visit Shavonne Parkinson MD [place] [facility] Cardiology examinationPulmonary embolismTremor VITAL SIGNS Date [...] Policy type / Coverage type Jennifer red republican ID [place] MEDICAID (2) Medicaid [id number] ADVANCE DIRECTIVES Name Date DISCUSSED - NO [...] is normal. Shavonne Parkinson MD Cardiology:03/25/24 1644 [facility] MPRESSION: 1 . Pulmonary embolism [...]
--- OUTSIDE RECORDS SUMMARY | 2024-12-07 13:58 | XMS_ITS | Referral Summary ---
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 file Not on file Not on file Last Filed Vital Signs Vital Sign Reading Time Taken Comments Blood Pressure 135/81 07/15/2024 10:44 AM FINANCIAL SERVICES PROFESSIONAL Pulse 70 07/15/2024 10:44 AM FINANCIAL SERVICES PROFESSIONAL Temperature 36.7 C (98 F) 07/15/2024 10:44 AM FINANCIAL SERVICES PROFESSIONAL Respiratory Rate 18 05/10/2021 3:55 PM CDT Oxygen Saturation 97% 05/10/2021 3:55 PM CDT Inhaled Oxygen Concentration - - Weight 88 kg (194 lb) 07/15/2024 10:44 AM FINANCIAL SERVICES PROFESSIONAL Height 165.1 cm (5' 5 ) 07/15/2024 10:44 AM FINANCIAL SERVICES PROFESSIONAL Body Mass Index 32.28 07/15/2024 10:44 AM FINANCIAL SERVICES PROFESSIONAL Plan of Treatment Not on file Procedures Procedure Name Priority Date/Time Associated Diagnosis Comments HEPATITIS C ANTIBODY Routine 07/15/2024 12:49 PM FINANCIAL SERVICES PROFESSIONAL Effusion of joint, unspecified location Arthralgia, unspecified joint from Last 3 Months or Most Recently Relevant to Health Maintenance Results * Hepatitis C antibody Blood (07/15/2024 12:49 PM FINANCIAL SERVICES PROFESSIONAL) Hep C Ab Nonreactive Nonreactive Comment:Antibodies to HCV no t detected. Does NOT exclude the possibility of recent exposure to HCV. Current interpretive data was last revised on 22 Blood 07/15/2024 12:4 9 PM FINANCIAL SERVICES PROFESSIONAL 07/15/2024 1:25 PM FINANCIAL SERVICES PROFESSIONAL Jessie Sherwood MD LAB MICROBIOLOGY - GENERAL ORDERABLES Final Result [facility] [place] [address] from Last 3 Months or Most Recently Relevant to Health Maintenance Insurance [place] [facility] Care Teams Window Installer Relationship Specialty Start Date End Date Keven Gonzalez DO [address] [place] [address] PCP - General Family Medicine 05/29/24 Kendrick Chacon MD Emergency Medicine 04/27/20 Edy Yadav MD [address] [facility] [address] Consulting Physician Pain Management 04/28/21
--- OUTSIDE RECORDS SUMMARY | 2024-12-07 13:58 | XMS_ITS | Data Portability ---
Author Organization [facility] Recorrido, Main Office Address [address] [place] [address] Assessment Encounter Date Assessment Date Assessment LastModified [...] per schedule. Cont f/u with Psych at [facility] as per schedule. Cont f/u with Gyne at [facility] as per schedule. HM: WWE - 06/23, [...] Pt will be calling her Pulmo at [facility] and see if she can be seen sooner. Pt declined for referral to Cardio. All meds verified with pt. [place] 5/325 # 40 given today until she can see D[facility]. Meds as directed. Good liquid and fiber intake explained. Diet and exercise explained in detail. BP diary education given and call us if any concerns. F/u with PT as per schedule. F/u with GI as per schedule. Cont f/u with Pulmo at [facility] as per schedule. Cont f/u with Psych at [facility] as per schedule. Cont f/u with Gyne at [facility] as per schedule. HM: WWE - 06/23, normal as per pt. Cont f/u with Gyne as per schedule. Mammo - 2 yrs ago. Ordered. Colonoscopy - Referred to GI. Flu - Pt declined. Tdap, Pneumo, Shingrix - At pharmacy/HD. F/u in 1 month. Lipids before next visit. Annual labs in 06/25. [email or web address] Not available 03/12/2024 11:09:21 03/31/2024 03/31/2024 48 [...] be seeing her Pulmo on 04/08/24 at [facility]. Will refer pt to Cardio, Pain clinic. [...] per schedule. Cont f/u with Pulmo at [facility] as per schedule. Cont f/u with Psych at [facility] as per schedule. Cont f/u with Gyne at [facility] as per schedule. HM: WWE - 06/23, normal as per pt. Cont f/u with Gyne as per schedule. Mammo - 2 yrs ago. Ordered. Colonoscopy - Referred to GI. Cologuard ordered. Flu - Pt declined. Tdap, Pneumo, Shingrix - At pharmacy/HD. F/u in 1-2 months. Annual labs in 06/25. [email or web address] Not available 03/31/2024 16:12:56 04/09/2024 04/09/2024 48 [...] per schedule. Cont f/u with Pulmo at [facility] as per schedule. Cont f/u with Psych at [facility] as per schedule. Cont f/u with Gyne at [facility] as per schedule. Educated pt about alarming [...] F/u as directed. Annual labs in 06/25. [email or web address] Not available 04/09/2024 14:37:51 Plan of Treatment Reminders Order Date Submit Date Provider Last Modified By Organization Details Last Modified Time Details Appointments None recorded. Lab noninvasive colorectal cancer DNA + occult blood screening, QL, stool 2023 024 [employer] (Cologuard Orders Only), [address], [address], [place], [address], 17:19:08 lipid panel, serum [address] (Lab), [address] [place], [address], 4 08:11:23 lipid panel, serum [address] (Lab), [address] [place], [address], 4 08:30:44 Referral neurologist referral - Please call patient to schedule an appointment . Thank you. 2023 024 [email or web address] [facility] - Neurology, [address] [facility], [place], [address], 4 08:52:35 cardiologis t referral - Please call patient to schedule an appointment . Thank you. 2023 024 [email or web address] [facility] Heart And Vascular Referral Fax Line, [address] [facility], [facility] [address], [place], [address], 4 07:47:52 pain management referral - Please call patient to schedule an appointment . Thank you. 2023 024 [email or web address] [facility] Pain Management, [address] [facility] [address], [place], [address], 4 07:46:41 hematologis t referral - Multiple PEs, ex-smoker. Please call patient to schedule an appointment . Thank you. 2023 024 [email or web address] Matthew Ungernti , [address] [place], [address], 4 08:54:02 gastroenter ologist referral - Patient has new onset intussuscep tion , found on CT 01/21, not present on CT 12/12. Diverticulo sis. Please call patient to schedule an appointment . Thank you. 2023 [email or web address] [facility] Gastroenterol ogy, [address], [address], [place], [address], 4 08:51:43 gastroenter ologist referral - Please call patient to schedule an appointment . 2023 024 [email or web address] Brenden Carlson MD, [address] [facility], [address], [place], [address], 4 08:35:15 Procedures None recorded. Surgeries None recorded. Imaging XR, hand, 3 or more view 2023 024 [email or web address] Not available 09:04:28 Medication Orders ipratropium 0.5 mg-albutero l 3 mg (2.5 mg base)/3 mL nebulizatio n soln 2023 [facility] #20346, [address] [place], [place], [id number], 4 12:05:29 albuterol sulfate HFA 90 mcg/actuati on aerosol inhaler 2023 024 [facility] #13397, [address], [place], [place], [id number], 4 12:05:29 furosemide 20 mg tablet 2023 [facility] #57833, [address], [place], [place], [id number], 4 12:05:30 omeprazole 40 mg capsule,del ayed release 2023 [facility] #62936, [address], [place], [place], [id number], 4 12:05:30 famotidine 40 mg tablet 2023 [facility] #92533, [address], [place], [place], [id number], 4 12:05:29 atorvastati n 10 mg tablet 2023 [facility] #08503, [address], [place], [place], [id number], 4 12:05:33 ipratropium 0.5 mg-albutero l 3 mg (2.5 mg base)/3 mL nebulizatio n soln 2023 024 [facility] #41640, [address], [place], [place], [id number], 4 16:00:21 Eliquis 5 mg tablet 2023 024 [facility] #44727, [address], [place], [place], [id number], 4 16:00:24 albuterol sulfate HFA 90 mcg/actuati on aerosol inhaler 2023 024 [facility] #43212, [address] [facility], [place], [place], [id number], 4 16:00:26 furosemide 20 mg tablet 2023 024 [facility] #23205, [address] [facility], [place], [place], [id number], 4 16:00:26 gabapentin 600 mg tablet 2023 024 [facility] #83997, [address] [facility], [place], [place], [id number], 4 16:00:23 baclofen 20 mg tablet 2023 024 [facility] #74102, [address] [facility], [place], [place], [id number], 4 16:00:31 atorvastati n 10 mg tablet 2023 024 [facility] #58096, [address] [facility], [place], [place], [id number], 4 16:00:27 ergocalcife rol (vitamin D2) 1,250 mcg (50,000 unit) capsule 2023 024 [facility] #07983, [address] [facility], [place], [place], [id number], 4 16:00:29 omeprazole 40 mg capsule,del ayed release 2023 024 [facility] #11627, [address] [facility], [place], [place], [id number], 4 16:00:27 famotidine 40 mg tablet 2023 024 [facility] #95507, [address], [place], [place], [id number], 4 16:00:21 ipratropium 0.5 mg-albutero l 3 mg (2.5 mg base)/3 mL nebulizatio n soln 2023 024 [facility] #29955, [address], [place], [place], [id number], 4 10:22:20 Eliquis 5 mg tablet 2023 024 [facility] #49452, [address] [facility], [place], [place], [id number], 4 10:22:22 hydrocodone 5 mg-acetamin ophen 325 mg tablet 2023 024 [facility] #17176, [address] [facility], [place], [place], [id number], 4 10:22:59 albuterol sulfate HFA 90 mcg/actuati on aerosol inhaler 2023 024 [facility] #69680, [address] [facility], [place], [place], [address], 4 10:23:13 furosemide 20 mg tablet 2023 024 [facility] #06070, [address] [facility], [place], [place], [address], 4 10:46:07 atorvastati n 10 mg tablet 2023 024 [facility] #30061, [address] [facility], [place], [place], [id number], 4 10:22:22 gabapentin 300 mg capsule [email or web address] [facility] [address] [facility] #43262, [address] [facility], [place], [place], [id number], 4 16:01:49 ergocalcife rol (vitamin D2) 1,250 mcg (50,000 unit) capsule 2023 [facility] #96179, [address] [facility], [place], [place], [id number], 4 10:22:22 omeprazole 40 mg capsule,del ayed release 2023 [facility] #07528, [address] [facility], [place], [place], [id number], 4 10:22:24 famotidine 40 mg tablet 2023 024 [facility] #84289, [address] [facility], [place], [place], [id number], 4 10:22:21 docusate sodium 100 mg capsule 2023 024 [facility] #37809, [address] [facility], [place], [place], [id number], 4 14:26:23 phentermine 37.5 mg tablet [email or web address] [facility] [address] [facility] #94087, [address] [facility], [place], [place], [id number], 4 10:13:02 diclofenac sodium 75 mg tablet,tarsha yed release 2023 024 [facility] #04178, [address] [facility], [place], [place], [id number], 4 10:36:23 atorvastati n 10 mg tablet 02/2023 [facility] #68394, [address] [facility], [place], [place], [id number], 4 10:32:43 phentermine 37.5 mg tablet 2023 [email or web address] [facility] #88958, [address] [facility], [place], [place], [id number], 4 10:13:02 ergocalcife rol (vitamin D2) 1,250 mcg (50,000 unit) capsule 2023 [facility] #64051, [address] [facility], [place], [place], [address], 4 10:32:39 omeprazole 40 mg capsule,del ayed release 2023 [facility] #94739, [address] [facility], [place], [place], [id number], 4 10:32:40 famotidine 40 mg tablet 2023 [facility] #60376, [address] [facility], [place], [place], [id number], 4 10:32:42 Patient TargetsNo targets recorded. Patient Instructions Encounter Date Encounter Id Patient Instructions Last Modified By Organization Details Last Modified Time 10/24/2023 [id number] learning about obesity [email or web address] Not available 10/24/2023 10:32:32 03/12/2024 [id number] learning about obesity Not available 03/12/2024 10:22:13 Thank you for [...] homebound status}} Required Home Health Services: {{none retirement, physical therapy, occupational therapy retirement, physical therapy retirement}} Durable Medical Equipment needed: {{cane walker wal ker with seat manual wheelchair bedsid e commode oxygen}} Billing Guidelines CPT code 02348- Transitional Care Management services with moderate medical decision complexity (cyvt-je-dqby visit within 14 days of discharge). CPT code 34324- Transitional Care Management services with high medical decision complexity (eygf-zr-swtk visit within 7 days of discharge). Not available 03/12/2024 09:52:22 03/31/2024 [id number] learning about obesity Not available 03/31/2024 16:00:11 Thank you for [...] to discuss. Not available 03/31/2024 15:42:48 04/09/2024 [id number] Thank you for your visit to our [...] Not available 04/09/2024 11:46:58 Reason for Referral Mammography Tech Referral for Screening colonoscopy Please call patient to schedule an appointment. Referring Physician: Ang Patterson [facility], Encounter Date: 10/24/2023 Mammography Tech Referral for Intussusception of small intestine Patient [...] [facility], Encounter Date: 03/31/2024 Vaccine Specialist Referral for Dy spnea on exertion Please [...] I AG, EIA, STOOL Micro Numbe r: [id number] Test Statu s: Final Speci men [...] Range : Not Detec leti Not Available [employer] [facility] [address], [place], [address], 10/02/2023 13:18:31 04/07/20 24 04/07/2024 COLOG UARD cologuard result reportable NEGATI VE negati ve normal NEGAT JAMEY TEST RESUL T. A negat jamey Colog uard resul t indic ates a low likel ihood that a color ectal cance r (CRC) or advan james adeno ma (colton omato us polyp s with more advan james pre-m align ant featu res) is prese nt. The [facility] e that a perso n with a [...] of 10,00 0 indiv idual s at [facility] risk for color ectal cance r [...] asymp tomat ic indiv idual s at [facility] risk for color ectal cance r. Follo [...] 112:1 016-1 030. TEST DESCR IPTIO N: [place] site algor ithmi c genesis sis of [...] years or older , who are at [facility] for color ectal cance r (CRC) . Colog uard has been appro rohan for use by the U.[place]. FDA. The perfo rmanc e of Colog uard was estab lishe d in a cross secti onal study of [facility] adult s aged 50-84 . Colog [...] study of 0 indiv idual s at [facility] risk for color ectal cance r who [...] d can be acces sed [facility] loc[facility] ion: www.e xactl abs.c om/re deborah . Addit ional descr iptio n of the Colog uard test proce ss, warni ngs and preca ution s can be found at www.c lyssaogabel thomasd.c om. Not Available [employer] (Cologuard Orders Only) [address], [place], [address], 04/11/2024 17:19:08 12/13/19 24 12/13/2023 CT, abdom en + pelvi s, w/ contr ast No observ ation record ed. [address], [place], [address], 12/23/2023 09:42:22 12/30/19 24 12/30/2023 CT, cervi bimal spine , w/o contr ast No observ ation record ed. [email or web address] [address], [place], [address], 12/30/2023 14:14:10 12/30/19 24 12/30/2023 XR, lumbo sacra l spine , 2 or 3 view No observ ation record ed. [email or web address] [address], [place], [address], 12/30/2023 14:14:21 01/22/20 24 01/22/2024 XR, chest No observ ation record ed. [address] [address], [place], [address], 01/22/2024 11:16:05 01/22/20 24 01/22/2024 LDCT, chest , for lung cance r scree audra No observ ation record ed. [address] [facility], [place], [address], 01/22/2024 17:06:54 01/22/20 24 01/22/2024 CT, angio gram, chest , w/ contr ast No observ ation record ed. [address] [facility], [place], [address], 03/12/2024 11:08:31 02/24/20 24 02/24/2024 US, doppl er echoc ardio gram No observ ation record ed. [address] [address], [place], [address], 03/12/2024 10:02:16 03/25/20 24 03/25/2024 XR, chest , 2 view No observ ation record ed. [address] [facility], [place], [address], 03/31/2024 15:49:25 03/25/20 24 03/25/2024 CT, angio gram, chest , w/ contr ast No observ ation record ed. [address], [place], [address], 03/31/2024 15:49:25 04/02/20 24 04/02/2024 CT, brain , w/o contr ast No observ ation record ed. [address], [place], [address], 04/09/2024 11:57:47 04/02/20 24 04/02/2024 XR, chest No observ ation record ed. [address], [place], [address], 04/09/2024 11:57:47 04/29/20 24 04/08/2024 imagi ng/di agnos tic resul t No observ ation record ed. [address], [place], [address], 04/29/2024 09:51:53 Result Notes None recorded. Problems Name Problem SNOMED Code Status Onset Date Resolution Date Notes Provider Name and Address Organization Details Recorded Time Depressive disorder 72734985 Active 2022 Ang Patterson MD [address], [place], [address], [employer] 3 15:00:33 Anxiety disorder 733187207 Active 2022 Ang Patterson MD [address], [place], [address], [employer] 3 15:00:39 Posttraumat ic stress disorder 74207719 Active 2022 Ang Patterson MD [address], [place], [address], [employer] 3 15:00:45 Obesity 578381796 Active 2022 Ang Patterson MD [address], [address], [place], [address], [employer] 3 15:01:02 Chronic neck pain 8191665699565 Active 2022 Ang Patterson MD [address], [address], [place], [address], [employer] 3 15:03:12 Chronic low back pain 909371591 Active 2022 Ang Patterson MD [address], [address], [place], [address], [employer] 3 15:03:20 Cervical spondylosis without myelopathy 352539933 Active 2022 Ang Patterson MD [address], [address], [place], [address], [employer] 3 15:17:42 Ex-smoker 6787088 Active 2022 Ang Patterson MD [address], [place], [address], [employer] 3 15:17:55 Degeneratio n of cervical interverteb ral disc 44967572 Active 2022 Ang Patterson MD [address], [place], [address], [email or web address] 3 14:38:13 Otalgia of right ear 9403903185 Active 2022 Ang Patterson MD [address], [place], [address], [employer] 3 09:56:32 Chronic idiopathic constipatio n 10357998 Active 2022 Ang Patterson MD [address], [place], [address], [employer] 3 09:58:26 Gastroesoph ageal reflux disease without esophagitis 443876810 Active 2022 Ang Patterson MD [address], [place], [address], [facility] [email or web address] [facility] 3 09:59:58 Xerostomia 26248246 Active 2022 Ang Patterson MD [address], [place], [address], [facility] [employer] [facility] [email or web address] [facility] 3 10:05:03 Anemia 673416003 Active 2022 Ang Patterson MD [address], [place], [address], [facility] [email or web address] [facility] 3 14:59:07 Vitamin D deficiency 64444479 Active 2023 Ang Pattreson MD [address], [place], [address], [facility] [employer] [facility] [email or web address] [facility] 4 10:31:01 Hyperlipide ana 81771276 Active 2023 Ang Patterson MD [address], [place], [address], [facility] [employer] [facility] [employer] [facility] 4 10:31:30 Pain of bilateral hands 7690422194350 9109 Active 2023 Ang Patterson MD [address], [address] [address], [place], [address], [facility] [employer] [facility] [email or web address] [facility] 4 10:34:43 Intussuscep tion of small intestine 176484794 Active 2023 SHIRA Mckeon [address], [place], [address], [facility] [email or web address] [facility] 4 14:12:52 Pulmonary embolism 99832376 Active 2023 Ang Patterson MD [address], [place], [address], [facility] [employer] [facility] [email or web address] [facility] 4 10:05:37 Pulmonary embolism with pulmonary infarction 3006578892782 Active 2023 Ang Patterson MD [address] [facility], [address] [address], [place], [address], [facility] [email or web address] [facility] 10:13:28 Dyspnea on exertion 11840056 Active 2023 Ang Patterson MD [address] [facility], [address] [address], [place], [address], [facility] [email or web address] [facility] 15:57:53 Tremor 07462318 Active 2023 Ang Patterson MD [address] [facility], [facility] [address], [place], [address], [facility] [email or web address] [facility] 11:59:25 Problem Notes None recorded. Procedures Surgical History Date Name Laterality Status Provider Name and Address Organization Details Recorded Time 03/31/2024 Transition al_Care_Ma nagement completed [facility] [email or web address] [facility] 03/31/2024 15:42:49 03/12/2024 Transition al_Care_Ma nagement completed [facility] [email or web address] [facility] 03/12/2024 09:52:22 Imaging Results Imaging Date Name Status LastModified by Organization Details LastModified Time 12/13/2023 CT, abdomen + pelvis, w/ contrast completed [address], [address], 12/23/2023 09:42:22 12/30/2023 CT, cervical spine, w/o contrast completed [address], [address], 12/30/2023 14:14:10 12/30/2023 XR, lumbosacral spine, 2 or [address], [place], [address], 12/30/2023 14:14:21 01/22/2024 XR, chest completed [email or web address] [address], [address], 01/22/2024 11:16:05 01/22/2024 LDCT, chest, for lung cancer screening completed [address], [place], [address], 01/22/2024 17:06:54 01/22/2024 CT, angiogram, chest, w/ contrast completed [address] [facility], [place], [address], 03/12/2024 11:08:31 02/24/2024 US, doppler echocardiogram completed [address], [address], 03/12/2024 10:02:16 03/25/2024 XR, chest, 2 view completed [address] [address], [place], [address], 03/31/2024 15:49:25 03/25/2024 CT, angiogram, chest, w/ contrast completed [address] [address], [place], [address], 03/31/2024 15:49:25 04/02/2024 CT, brain, w/o contrast completed [address] [address], [place], [address], 04/09/2024 11:57:47 04/02/2024 XR, chest completed [address], [address], 04/09/2024 11:57:47 04/08/2024 imaging/diagnostic result completed [address], [address], 04/29/2024 09:51:53 Procedure Notes None recorded. Medical [...] % 132 mm[Hg] 72 mm[Hg] Alexx Resendiz [facility] [email or web address] [facility] 4 10:05:54 Date Recorded Body mass index (BMI) Body weight Provider Name and Address Organization Details Last Updated DateTime 10/24/2023 32.5 kg/m2 59888.86 g Ang Patterson MD [address], [address], [facility] [employer] [facility] 10/24/2023 10:40:55 Date Recorded Body height Body temperature Heart rate Oxygen saturation Oxygen saturation in Arterial blood by Pulse oximetry Body mass index (BMI) Body weight Systolic blood pressure Diastolic blood pressure Provider Name and Address Organization Details Last Updated DateTime 4 165.1 cm 98.7 [degF] 89 /min 98 % 98 % 33 kg/m2 30568.4 4 g 173 mm[Hg] 102 mm[Hg] Tana Brown MA [facility] [employer] [facility] 4 14:07:48 Date Recorded Body height Body mass index (BMI) Body weight Body temperature Provider Name and Address Organization Details Last Updated DateTime 03/12/2024 165.1 cm 30.5 kg/m2 24142.75 g 98.2 [degF] Alexx Resendiz [facility] [email or web address] [facility] 03/12/2024 09:56:29 Date Recorded Heart rate Respiratory rate Oxygen saturation Oxygen saturation in Arterial blood by Pulse oximetry Inhaled oxygen flow rate Systolic blood pressure Diastolic blood pressure Provider Name and Address Organization Details Last Updated DateTime 4 100 /min 24 /min 90 % 90 % 2 L/min 146 mm[Hg] 88 mm[Hg] Ang Patterson MD [address] [facility], [address], [facility] [employer] [facility] 4 10:41:10 Date Recorded Body height Body mass index (BMI) Body weight Body temperature Systolic blood pressure Diastolic blood pressure Provider Name and Address Organization Details Last Updated DateTime 4 165.1 cm 32.1 kg/m2 50871.3 8 g 98.1 [degF] 144 mm[Hg] 90 mm[Hg] Alexx Resendiz [employer] 4 15:47:52 Date Recorded Heart rate Respiratory rate Oxygen saturation Oxygen saturation in Arterial blood by Pulse oximetry Inhaled oxygen flow rate Provider Name and Address Organization Details Last Updated DateTime 4 110 /min 22 /min 94 % 94 % 2 L/min Ang Patterson MD [address], [address], [employer] 4 16:08:35 Date Recorded Body height Body mass index (BMI) Body weight Body temperature Respiratory rate Systolic blood pressure Diastolic blood pressure Provider Name and Address Organization Details Last Updated DateTime 165.1 cm 31.8 kg/m2 18262.4 9 g 97.9 [degF] 16 /min 146 mm[Hg] 86 mm[Hg] [employer] [facility] [employer] 4 11:51:44 Date Recorded Heart rate Oxygen saturation Oxygen saturation in Arterial blood by Pulse oximetry Provider Name and Address Organization Details Last Updated DateTime 04/09/2024 96 /min 96 % 96 % Ang Patterson MD [address], [address] [place] [address] [employer] 04/09/2024 12:43:19 Social History Question Answer Notes LastModified by Organizat ion Details LastModified Time Tobacco Smoking Status Former Smoker Ang Patterson MD [address], [address], [facility] [employer] 04/23/2023 15:18:12 Do You Have An Advance [...] Or The Highest Degree You Have Received? IR28293-1 Information not available 04/23/2023 Have There Been [...] Do You Have A Medical Power Of Manager Social Work? No Information not available 04/23/2023 How Many [...] Anxious, Or Unable To Sleep At Night)? [id number] Information not available 04/23/2023 Do You Use [...] BEEN HOSPITALIZED OR SEEN IN [facility] IN THE PAST YEAR ? N ATHEROSCLEROSIS [...] SNOMED-CT Code Diagnosis ICD10 Code Diagnosis Note [id number] Ang Patterson MD [address] [address] 04/23/2023 14:37:09 04/23/2023 15:24:12 Depressive disorder 29680937 F32.A Anxiety disorder F41.9 Posttrauma tic stress disorder 11342909 F43.10 Obesity 868916645 E66.9 Ex-smoker 5309377 Z87.89 1 Chronic neck pain 897107 5720 107 M54.2 Chronic low back pain 27 9586209 M54.50 Cervical s pondylosis without myelopathy 919642348 M47.147 [id number] Ang Patterson MD [address] [address] 05/14/2023 17:26:14 05/14/2023 17:49:44 Chronic neck pain 7504559447 107 M54.2 Chronic low back pain 27 3726187 M54.50 Cervical s pondylosis without myelopathy 168508151 M47.812 Depressive disorder 3548 9007 F32.A Anxiety disorder F41.9 Posttrauma tic stress disorder 60610795 F43.10 Obesity 070571610 E66.9 Ex-smoker 0299799 Z87.89 1 Degenerati on of cervical intervertebral disc 03735644 M50.30 [id number] Ang Patterson MD [address] [address] 06/04/2023 09:43:47 06/04/2023 10:27:29 Adult health examination 399116667 Z00.00 Chronic neck pain 639517 3712 107 M54.2 Chronic low back pain 27 7565735 M54.50 Obesity 495652539 E66.9 Ex-smoker 3350589 Z87.89 1 Otalgia of right ear 982 1363772 H92.01 Screening colonoscopy 44 1910998 Z12.11 Chronic id iopathic constipation 30982654 K59.04 Gastroesop hageal reflux disease without esophagitis 377738629 K21.9 Screening mammography 24 604018 Z12.31 Cervical s pondylosis without myelopathy 724856108 M47.812 Xerostomia 48226675 R68. 2 [id number] Ang Patterson MD [address] [address] 06/25/2023 14:39:36 06/25/2023 15:24:08 Chronic neck pain 4675987477 107 M54.2 Chronic low back pain 27 8339792 M54.50 Obesity 056950606 E66.9 Ex-smoker 5197322 Z87.89 1 Chronic id iopathic constipation 09059745 K59.04 Gastroesop hageal reflux disease without esophagitis 578329046 K21.9 Cervical s pondylosis without myelopathy 742830434 M47.812 Xerost[employer]ia 88749026 R68. 2 Anemia 897733225 D64.9 [id number] Ang Patterson MD [address] [address] 07/18/2023 15:27:03 07/18/2023 15:47:18 Chronic neck pain 4958841323 107 M54.2 Chronic low back pain 27 7468205 M54.50 Obesity 866152972 E66.9 [id number] Ang Patterson MD [address] [address] 08/22/2023 10:25:27 08/22/2023 10:43:48 Obesity 157805640 E66.9 Gastroesop hageal reflux disease without esophagitis 658211705 K21.9 Depressive disorder 3548 9007 F32.A [id number] Ang Patterson MD [place] [address] 1 10/24/2023 09:54:39 10/24/2023 10:45:37 Gastroesophageal reflux disease without esophagitis 885141725 K21.9 Obesity 031852934 E66.9 Vitamin D deficiency 347 48751 E55.9 Hyperlipidemia 27272705 E78.5 Pain of bi lateral hands 8628769258 7800088 M79.641 Screening colonoscopy 44 9376292 Z12.11 [id number] SHIRA Mckeon [address] [address] 01/29/2024 13:56:02 01/29/2024 14:34:01 Intussusception of small intestine 770333921 K56.1 Chronic id iopathic constipation 45925814 K59.04 Obesity 068376108 E66.9 [id number] Ang Patterson MD [address] [address] 03/12/2024 09:48:48 03/12/2024 11:12:17 Vitamin D deficiency 63150795 E55.9 Hyperlipidemia 97240467 E78.5 Gastroesop hageal reflux disease without esophagitis 429538547 K21.9 Obesity 881022074 E66.9 Pain of bi lateral hands 2532052968 0045537 M79.641 Hospital i npatient stay within past 30 days 0602549583 106 Z76.89 Transition of care 85563 92886 105 Z75.8 Pulmonary embolism 91203 003 I26.99 Cervical s pondylosis without myelopathy 018875522 M47.812 Pulmonary embolism with pulmonary infarction 0125194116 102 I26.99 [id number] Ang Patterson MD [address] [address] 03/31/2024 15:36:12 03/31/2024 16:29:17 Transition of care 7857897529 105 Z75.8 Pulmonary embolism 10156 003 I26.99 Vitamin D deficiency 347 64261 E55.9 Hyperlipidemia 43419764 E78.5 Gastroesop hageal reflux disease without esophagitis 890559131 K21.9 Obesity 985882452 E66.9 Pain of bi lateral hands 4548598314 6831183 M79.641 Cervical s pondylosis without myelopathy 648263131 M47.812 Pulmonary embolism with pulmonary infarction 6728687541 102 I26.99 Dyspnea on exertion 6084 5006 R06.09 Screening for malignant neoplasm of colon 175787787 Z12.11 [id number] Ang Patterson MD [facility] [address] [address] 04/09/2024 11:38:36 04/09/2024 14:39:32 Transition of care 1980486405 105 Z75.8 Pulmonary embolism 73293 003 I26.99 Vitamin D deficiency 347 09816 E55.9 Hyperlipidemia 14443544 E78.5 Gastroesop hageal reflux disease without esophagitis 103809263 K21.9 Obesity 467958071 E66.9 Pain of bi lateral hands 8343396453 6294524 M79.641 Cervical s pondylosis without myelopathy 557738398 M47.812 Pulmonary embolism with pulmonary infarction 6001931774 102 I26.99 Dyspnea on exertion 6084 5006 R06.09 Tremor 93053834 R25.1 Hospital i npatient stay within past 30 days 4982066732 106 Z76.89 Health Concerns Section Related Observation [...] PAY* Ka rla Shallenberger 03/31/2024 1 [place] Anat Phelan [id number] Anat Phelan 04/09/2024 1 [place] Anat Phelan [id number] Anat Phelan Notes Date Note Type Note [...] PTSD and is f/u with Psych at [facility] for it. Pt is on meds by them and is doing overall well with it. Denies any mood swings/SI/HI. Pt was f/u with Endo at [facility] and is on chronic Prednisone from them for last couple years. Ang Patterson MD [address] [place] [address] [address], [place], [address], [place] [facility] [employer] 10/24/2023 10:42:51 01/29/2024 text/html Anat alvarez is [...] SHIRA Mckeon [address], [address], [place], [address], [facility] [employer] [facility] [employer] 01/29/2024 14:33:48 03/12/2024 text/html Hospital fuv:Pt has some insurance issues going on. Pt was admitted to [facility] on 02/22/24 due to not feeling well. Pt was found to have Pneumonia, PE, pulmonary infarction, pulmonary edema. Pt has finished her antibiotics and she is on Eliquis and [place]. Pt is needing refill on them. Pt will be seeing Pulmo at [facility] in few weeks. Pt has home O2 [...] PTSD and is f/u with Psych at [facility] for it. Pt is on meds by them and is doing overall well with it. Denies any mood swings/SI/HI. Pt was f/u with Endo at [facility] and is on chronic Prednisone from them for last couple years. Ang Patterson MD [address], [facility] [address], [place], [address], [employer] 03/12/2024 11:10:25 03/31/2024 text/html Hospital fuv: Pt was seen in ED again on 03/25/24 due to SOB and chest pain and got work up done and was found to have Pneumonia. So pt was d/c on Z-jeanmarie and hydrocodone from ED. Pt has finished Z-jeanmarie and is feeling much better now. No fever/chills/n/v/d/sp utum. Pt will be seeing Pulmo at [facility] on 04/08/24. Pt has home O2 set up done already and she has with her. Pt was admitted to [facility] on 02/22/24 due to not feeling well. Pt was found to have Pneumonia, PE, pulmonary infarction, pulmonary edema. Pt has finished her antibiotics and she is on Eliquis and [place]. Pt is needing refill on them. Pt [...] PTSD and is f/u with Psych at [facility] for it. Pt is on meds by them and is doing overall well with it. Denies any mood swings/SI/HI. Pt was f/u with Endo at [facility] and is on chronic Prednisone from them for last couple years. Ang Pattesron MD [address] [place] [address], [facility] [address], [place], [address], [facility] [employer] 03/31/2024 16:13:31 04/09/2024 text/html Hospital fuv: Pt [...] body pain and she is asking for [place]. Pt is not taking her Gabapentin. Pt was seen couple weeks ago and was given [place] by me # 40 on 03/21/24 and [...] week. Pt is f/u with Pulmo at [facility] for her Pneumonia, PE and chronic hypoxia and is on meds by them. Pt has home O2 set up for her home. Pt was admitted to [facility] on 02/22/24 due to not feeling well. Pt was found to have Pneumonia, PE, pulmonary infarction, pulmonary edema. Pt has finished her antibiotics and she is on Eliquis and [place]. Pt is needing refill on them. Pt [...] PTSD and is f/u with Psych at [facility] for it. Pt is on meds by them and is doing overall well with it. Denies any mood swings/SI/HI. Pt was f/u with Endo at [facility] and is on chronic Prednisone from them for last couple years. Ang Patterson MD [address] [facility], [facility] [address], [place], [address], [place] [facility] [employer] 04/09/2024 14:38:39 OBGyn Episode No OBEpisode recorded.
--- OUTSIDE RECORDS SUMMARY | 2024-12-07 13:58 | XMS_ITS | Clinical Summary ---
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 Not on file Not on file Obstetrics History Last Filed Vital Signs Vital Sign Reading Time Taken Comments Blood Pressure 135/81 07/15/2024 10:44 AM LEAD SYSTEMS DEVELOPER Pulse 70 07/15/2024 10:44 AM LEAD SYSTEMS DEVELOPER Temperature 36.7 C (98 F) 07/15/2024 10:44 AM LEAD SYSTEMS DEVELOPER Respiratory Rate 18 05/10/2021 3:55 PM CDT Oxygen Saturation 97% 05/10/2021 3:55 PM CDT Inhaled Oxygen Concentration - - Weight 88 kg (194 lb) 07/15/2024 10:44 AM LEAD SYSTEMS DEVELOPER Height 165.1 cm (5' 5 ) 07/15/2024 10:44 AM LEAD SYSTEMS DEVELOPER Body Mass Index 32.28 07/15/2024 10:44 AM LEAD SYSTEMS DEVELOPER Plan of Treatment Health Maintenance Due Date [...] HEPATITIS C ANTIBODY Routine 07/15/2024 12:49 PM LEAD SYSTEMS DEVELOPER Effusion of joint, unspecified location Arthralgia, unspecified joint from Last 3 Months or Most Recently Relevant to Health Maintenance Results * Hepatitis C antibody Blood (07/15/2024 12:49 PM LEAD SYSTEMS DEVELOPER) Hep C Ab Nonreactive Nonreactive Comment:Antibodies to HCV no t detected. Does NOT exclude the possibility of recent exposure to HCV. Current interpretive data was last revised on 22 Blood 07/15/2024 12:4 9 PM LEAD SYSTEMS DEVELOPER 07/15/2024 1:25 PM LEAD SYSTEMS DEVELOPER us Jessie Sherwood MD LAB MICROBIOLOGY - GENERAL ORDERABLES Final Result [facility] Department [place] [address] from Last 3 Months or Most Recently Relevant to Health Maintenance [place] [address] [place] [address] [facility] Care Teams City Alderman Relationship Specialty Start Date End Date Keven Gonzalez DO [address] [place] [id number] PCP - General Family Medicine 05/29/24 Kendrick Chacon MD Emergency Medicine 04/27/20 Edy Yadav MD [address] [facility] [place] [address] Consulting Physician Pain Management 04/28/21
== END 2024-12-07 13:18 | disposition home or self-care (01) ==
PROVIDERS: Emergency Provider Nurse Practitioner Family; PCP Family Medicine
DX: J06.9 Acute upper respiratory infection, unspecified (principal); R05.9 Cough, unspecified; J45.909 Unspecified asthma, uncomplicated; Z20.822 Contact with and (suspected) exposure to COVID-19; Z87.891 Personal history of nicotine dependence; R06.9 Unspecified abnormalities of breathing; M47.817 Spondylosis without myelopathy or radiculopathy, lumbosacral region; M50.30 Other cervical disc degeneration, unspecified cervical region; M51.369 Other intervertebral disc degeneration, lumbar region without mention of lumbar back pain or lower extremity pain; K21.9 Gastro-esophageal reflux disease without esophagitis; F41.9 Anxiety disorder, unspecified; F32.A Depression, unspecified
CPT/HCPCS: 87426; 87804; 99213; G0463

== ENCOUNTER 2025-01-17 18:21 | Emergency (ER) | payer OTHER, SELFPAY ==
--- NOTE | ~2025-01-17 | XR_ITS ---
CHEST RADIOGRAPH CLINICAL HISTORY: dyspnea . COMPARISON: 09/30/2024 TECHNIQUE: Single portable view of the chest. FINDINGS The cardiomediastinal silhouette is unremarkable. Interval resolution of the infiltrate within the left lower lobe, seen on previous examination. Coarse interstitial lung markings are otherwise identified. No focal infiltrate is present. IMPRESSION: No focal infiltrate or effusion. Reviewed, dictated and finalized at location A.
--- OUTSIDE RECORDS SUMMARY | 2025-01-17 18:23 | XMS_ITS | Clinical Summary ---
Author Organization [facility] Address [address] [place] [address] Care Team Providers Care Production Lead Name Role Phone Kendrick Chacon MD Primary Care Provider [phone] Source Comments [facility],non-owned Affiliates and Associated Physician Practices is amultiple site organization consisting of ambulatory clinics and hospital sitesin [place], [place], [place] and [place]. This disclosure is being madepursuant to the Care Everywhere program and may not contain all information available regarding this patient. Last updated 18.[facility] Allergies No known active allergies Medications * Be aware that medications may not be up to date on this document. Alwaysverify current medications with the patient. famotidine (PEPCID) 40 MG tablet Take 40 mg by mouth 2 times daily Active iron polysaccharides (NIFEREX 150) 150 MG capsule Take 150 mg by mouth once daily Active albuterol HFA (PROAIR HFA) 108 (90 BASE) MCG/ACT inhaler Inhale 2 Puffs by mouth every 6 hours as needed 1 Inhaler 3 7 Active Flunisolide HFA (AEROSPAN) 80 MCG/ACT Inhale 2 Puffs by mouth 2 times daily 1 Inhaler 1 7 Active omeprazole (PRILOSEC) 20 MG capsule Take 20 mg by mouth once daily Active citalopram (CELEXA) 20 MG tablet 0 Active clonazePAM (KLONOPIN) 0.5 MG tablet Take 0.5 mg by mouth once daily as needed 1 Active cyclobenzaprine (FLEXERIL) 10 MG tablet Take 10 mg by mouth nightly as needed 1 Active meloxicam (MOBIC) 7.5 MG tablet Take 7.5 mg by mouth 2 times daily as needed 1 Active tolterodine ER 24hr (DETROL LA) 4 MG capsule Take 4 mg by mouth once daily 1 Active fluticasone-salmeter ol 113-14 MCG/ACT inhaler Inhale 1 puff by mouth 2 times daily Active vitamin D, ergocalciferol, (DRISDOL) 1.25 MG (29669 UT) capsule TAKE 1 CAPSULE BY MOUTH WEEKLY 1 Active predniSONE (Deltasone) 5 MG tabletIndications:Ad renal insufficiency (HCC) TAKE 1 TABLET BY MOUTH EVERY DAY 90 tablet 11 3 Active Active Problems Problem Noted Date Diagnosed [...] = 0.6 oz pur e alcohol) Comments No Sex and Gender Information Value Date Recorded Sex Assigned at Not on file Legal Sex Female 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 Gender Identity Not on file Sexual Orientation [...] on patient's age to complete this topic Insurance [facility] SELF PAY NO INSURANCE Member Subscriber Plan / Payer (Ef fective for All Dates) Name:Anat Phelan Amanda Relation to Subscriber:Self Name:Anat Phelan Payer ID:Not on file Group ID:Not on file Type:Self Pay Address: [place], [place] Advance Directives Documents on File Type Date Recorded Patient Finance Vice President Expl anation Adv Directive/Living Will/POA 01/01/2017 * Full Code (Latest Code Status on File) Date Activated Date Inactivated Comments 01/01/2017 7:27 PM 01/01/2017 9:50 PM Care Teams Production Lead Relationship Specialty Start Date End Date Kendrick Chacon MD [address] [facility] [address] [place] [address] PCP - General 04/03/21
--- OUTSIDE RECORDS SUMMARY | 2025-01-17 18:23 | XMS_ITS | Data Portability ---
Author Organization [facility] [place], Main Office Address [address] [place] [address] Assessment Encounter Date Assessment Date Assessment LastModified [...] per schedule. Cont f/u with Psych at [facility] as per schedule. Cont f/u with Gyne at [facility] as per schedule. HM: WWE - 06/23, [...] Pt will be calling her Pulmo at [facility] and see if she can be seen sooner. Pt declined for referral to Cardio. All meds verified with pt. [place] 5/325 # 40 given today until she can see Process Tech. Meds as directed. Good liquid and fiber intake explained. Diet and exercise explained in detail. BP diary education given and call us if any concerns. F/u with PT as per schedule. F/u with GI as per schedule. Cont f/u with Pulmo at [facility] as per schedule. Cont f/u with Psych at [facility] as per schedule. Cont f/u with Gyne at [facility] as per schedule. HM: WWE - 06/23, normal as per pt. Cont f/u with Gyne as per schedule. Mammo - 2 yrs ago. Ordered. Colonoscopy - Referred to GI. Flu - Pt declined. Tdap, Pneumo, Shingrix - At pharmacy/HD. F/u in 1 month. Lipids before next visit. Annual labs in 06/25. [email or web address] Not available 03/12/2024 11:09:21 03/31/2024 03/31/2024 48 [...] be seeing her Pulmo on 04/08/24 at [facility]. Will refer pt to Cardio, Pain clinic. [...] per schedule. Cont f/u with Pulmo at [facility] as per schedule. Cont f/u with Psych at [facility] as per schedule. Cont f/u with Gyne at [facility] as per schedule. HM: WWE - 06/23, normal as per pt. Cont f/u with Gyne as per schedule. Mammo - 2 yrs ago. Ordered. Colonoscopy - Referred to GI. Cologuard ordered. Flu - Pt declined. Tdap, Pneumo, Shingrix - At pharmacy/HD. F/u in 1-2 months. Annual labs in 06/25. [email or web address] Not available 03/31/2024 16:12:56 04/09/2024 04/09/2024 48 [...] per schedule. Cont f/u with Pulmo at [facility] as per schedule. Cont f/u with Psych at [facility] as per schedule. Cont f/u with Gyne at [facility] as per schedule. Educated pt about alarming [...] F/u as directed. Annual labs in 06/25. [email or web address] Not available 04/09/2024 14:37:51 Plan of Treatment Reminders Order Date Submit Date Provider Last Modified By Organization Details Last Modified Time Details Appointments None recorded. Lab noninvasive colorectal cancer DNA + occult blood screening, QL, stool 2023 024 [facility] (Cologuard Orders Only), [address], [address], [place], [address], 17:19:08 lipid panel, serum [address] (Lab), [address] [place], [address], 4 08:11:23 lipid panel, serum [address] (Lab), [address] [place], [address], 4 08:30:44 Referral neurologist referral - Please call patient to schedule an appointment . Thank you. 2023 024 [email or web address] [facility] - Neurology, [address], [place], [address], 4 08:52:35 cardiologis t referral - Please call patient to schedule an appointment . Thank you. 2023 024 [email or web address] [facility] Vascular Referral Fax Line, [address] [facility], [facility] [address], [place], [address], 4 07:47:52 pain management referral - Please call patient to schedule an appointment . Thank you. 2023 024 [email or web address] [facility] Pain Management, [address], [place], [address], 4 07:46:41 hematologis t referral - Multiple PEs, ex-smoker. Please call patient to schedule an appointment . Thank you. 2023 024 [email or web address] Matthew Whitman Nae TUCKER, [address] [place], [address], 4 08:54:02 gastroenter ologist referral - Patient has new onset intussuscep tion , found on CT 01/21, not present on CT 12/12. Diverticulo sis. Please call patient to schedule an appointment . Thank you. 2023 024 [email or web address] [facility]astro[facility], [address], [place], [address], 4 08:51:43 gastroenter ologist referral - Please call patient to schedule an appointment . 2023 024 [email or web address] Brenden Carlson MD, [address] [facility], [address], [place], [address], 4 08:35:15 Procedures None recorded. Surgeries None recorded. Imaging XR, hand, 3 or more view 2023 024 [email or web address] Not available 09:04:28 Medication Orders ipratropium 0.5 mg-albutero l 3 mg (2.5 mg base)/3 mL nebulizatio n soln 2023 [facility]14931, [address] [facility] [facility] [address], [place], [place], [id number], 4 12:05:29 albuterol sulfate HFA 90 mcg/actuati on aerosol inhaler 08/2023 [facility] #07397, [address], [place], [place], [id number], 4 12:05:29 furosemide 20 mg tablet 2023 [facility] #17233, [address], [place], [place], [id number], 4 12:05:30 omeprazole 40 mg capsule,del ayed release 2023 [facility] #36033, [address], [place], [place], [id number], 4 12:05:30 famotidine 40 mg tablet 2023 [facility] #66539, [address], [place], [place], [id number], 4 12:05:29 atorvastati n 10 mg tablet 2023 [facility] #44310, [address], [place], [place], [id number], 4 12:05:33 ipratropium 0.5 mg-albutero l 3 mg (2.5 mg base)/3 mL nebulizatio n soln 2023 [facility] #08961, [address], [place], [place], [id number], 4 16:00:21 Eliquis 5 mg tablet 2023 024 [facility] #98272, [address], [place], [place], [id number], 4 16:00:24 albuterol sulfate HFA 90 mcg/actuati on aerosol inhaler 2023 024 [facility] #19029, [address] [facility], [place], [place], [id number], 4 16:00:26 furosemide 20 mg tablet 2023 024 [facility] #02486, [address] [facility], [place], [place], [id number], 4 16:00:26 gabapentin 600 mg tablet 2023 024 [facility] #63500, [address] [facility], [place], [place], [id number], 4 16:00:23 baclofen 20 mg tablet 2023 024 [facility] #85251, [address] [facility], [place], [place], [id number], 4 16:00:31 atorvastati n 10 mg tablet 2023 024 [facility] #36621, [address] [facility], [place], [place], [id number], 4 16:00:27 ergocalcife rol (vitamin D2) 1,250 mcg (50,000 unit) capsule 2023 024 [facility] #04892, [address] [place], [place], [id number], 4 16:00:29 omeprazole 40 mg capsule,del ayed release 2023 024 [facility] #81825, [address] [facility], [place], [place], [id number], 4 16:00:27 famotidine 40 mg tablet 2023 024 [facility] #33932, [address], [place], [place], [id number], 4 16:00:21 ipratropium 0.5 mg-albutero l 3 mg (2.5 mg base)/3 mL nebulizatio n soln 2023 024 [facility] #02400, [address], [place], [place], [id number], 4 10:22:20 Eliquis 5 mg tablet 2023 024 [facility] #12824, [address] [facility], [place], [place], [id number], 4 10:22:22 hydrocodone 5 mg-acetamin ophen 325 mg tablet 2023 024 [facility] #47118, [address] [facility], [place], [place], [id number], 4 10:22:59 albuterol sulfate HFA 90 mcg/actuati on aerosol inhaler 2023 024 [facility] #18812, [address], [place], [place], [id number], 4 10:23:13 furosemide 20 mg tablet 2023 024 [facility] #46599, [address] [facility], [place], [place], [id number], 4 10:46:07 atorvastati n 10 mg tablet 2023 024 [facility] #74944, [address] [facility], [place], [place], [id number], 4 10:22:22 gabapentin 300 mg capsule [email or web address] [facility] #53333, [address] [facility], [place], [place], [id number], 4 16:01:49 ergocalcife rol (vitamin D2) 1,250 mcg (50,000 unit) capsule 2023 024 [facility] #21698, [address] [facility], [place], [place], [id number], 4 10:22:22 omeprazole 40 mg capsule,del ayed release 2023 024 [facility] #70510, [address] [facility], [place], [place], [id number], 4 10:22:24 famotidine 40 mg tablet 2023 024 [facility] #30296, [address] [facility], [place], [place], [id number], 4 10:22:21 docusate sodium 100 mg capsule 2023 024 [facility] #28323, [address] [facility], [place], [place], [id number], 4 14:26:23 phentermine 37.5 mg tablet [address] [facility] #04789, [address] [facility], [place], [place], [id number], 4 10:13:02 diclofenac sodium 75 mg tablet,tarsha yed release 2023 024 [facility] #89945, [address] [facility], [place], [place], [id number], 4 10:36:23 atorvastati n 10 mg tablet 2023 024 [facility] #45642, [address] [facility], [place], [place], [id number], 4 10:32:43 phentermine 37.5 mg tablet 2023 [email or web address] [facility] #54637, [address] [facility], [place], [place], [id number], 4 10:13:02 ergocalcife rol (vitamin D2) 1,250 mcg (50,000 unit) capsule 2023 024 [facility] #59619, [address] [facility], [place], [place], [id number], 4 10:32:39 omeprazole 40 mg capsule,del ayed release 2023 024 [facility] #97455, [address] [facility], [place], [place], [id number], 4 10:32:40 famotidine 40 mg tablet 2023 024 [facility] #25895, [address] [facility], [place], [place], [id number], 4 10:32:42 Patient TargetsNo targets recorded. Patient Instructions Encounter Date Encounter Id Patient Instructions Last Modified By Organization Details Last Modified Time 10/24/2023 [id number] learning about obesity [email or web address] Not available 10/24/2023 10:32:32 03/12/2024 [id number] learning about obesity [email or web address] Not available 03/12/2024 10:22:13 Thank you for [...] homebound status}} Required Home Health Services: {{none m[facility], physical therapy, occupational therapy [facility], physical therapy [facility]}} Durable Medical Equipment needed: {{cane walker wal ker with seat manual wheelchair bedsid e commode oxygen}} Billing Guidelines CPT code 01794- Transitional Care Management services with moderate medical decision complexity (khgb-dh-azfm visit within 14 days of discharge). CPT code 88960- Transitional Care Management services with high medical decision complexity (zeso-tz-neqk visit within 7 days of discharge). Not available 03/12/2024 09:52:22 03/31/2024 [id number] learning about obesity [email or web address] Not available 03/31/2024 16:00:11 Thank you for [...] to discuss. Not available 03/31/2024 15:42:48 04/09/2024 [id number] Thank you for your visit to our [...] Not available 04/09/2024 11:46:58 Reason for Referral Arts And Crafts Teacher Referral for Screening colonoscopy Please call patient to schedule an appointment. Referring Physician: Ang Patterson [facility], Encounter Date: 10/24/2023 Arts And Crafts Teacher Referral for Intussusception of small intestine Patient has new onset intussusception , found on CT 01/21, not present on CT 12/12. Diverticulosis. Please call patient to schedule an appointment. Thank you. Referring Physician: Janneth Rogers [facility], Encounter Date: 01/29/2024 Multiple PEs, ex-smoker. Ple ase call patient to schedule an appointment. Thank you. Referring Physician: Ang Patterson [facility], Encounter Date: 03/12/2024 Pain Management Referral for Cervical spondylosis without myelopathy Please call patient to schedule an appointment. Thank you. Referring Physician: Ang Patterson [facility], Encounter Date: 03/31/2024 Communication Engineer Referral for Dy spnea on exertion Please call patient to schedule an appointment. Thank you. Referring Physician: Ang Patterson [facility], Encounter Date: 03/31/2024 Neurologist Referral for Kory mor B/l UE tremors for last 1-2 weeks. Please call patient to schedule an appointment. Thank you. Referring Physician: Ang Patterson [facility], Encounter Date: 04/09/2024 Results Created Date Observation Date Name Description Value Unit Range Abnormal Flag Note LastModifiedBy Organization Detail LastModifiedTime 10/01/19 24 10/02/2023 HELIC OBACT ER PYLOR I AG, EIA, STOOL helicobacter pylori Ag, EIA, stool SEE NOTE HELIC OBACT ER PYLOR I AG, EIA, STOOL Micro Numbe r: [id number] Test Statu s: Final Speci men Sourc [...] Range : Not Detec leti Not Available [facility] [address], [place], [address], 10/02/2023 13:18:31 04/07/20 24 04/07/2024 COLOG UARD cologuard result reportable NEGATI VE negati ve normal NEGAT JAMEY TEST RESUL T. A negat jamey Colog uard resul t indic ates a low likel ihood that a color ectal cance r (CRC) or advan james adeno ma (colton omato us polyp s with more advan james pre-m align ant featu res) is prese nt. [facility] that a perso n with a [...] of 10,00 0 indiv idual s at [facility] risk for color ectal cance r [...] asymp tomat ic indiv idual s at [facility] risk for color ectal cance [...] Color ectal Cance r Scree audra: https ://anitha w.can cer.o rg/ca ncer/ colon -rect al-ca [...] 112:1 016-1 030. TEST DESCR IPTIO N: [place] site algor ithmi c genesis sis of [...] years or older , who are at [facility] for color ectal cance r (CRC) . Colog uard has been appro rohan for use by the U.[place]. FDA. The perfo rmanc e of Colog uard was estab lishe d in a cross secti onal study of [facility] adult s aged 50-84 . Colog [...] study of 0 indiv idual s at [place] [facility] risk for color ectal cance r [...] d can [facility]es sed [facility] locat ion: www.e xactl abs.c om/re sulhuang . Addit ional descr iptio n of the Colog uard test proce ss, warni ngs and preca ution s can be found at www.c sang thomasd.c om. Not Available [employer] (Cologuard Orders Only) [address], [place], [address], 04/11/2024 17:19:08 12/13/19 24 12/13/2023 CT, abdom en + pelvi s, w/ contr ast No observ ation record ed. [address], [place], [address], 12/23/2023 09:42:22 12/30/19 24 12/30/2023 CT, cervi bimal spine , w/o contr ast No observ ation record ed. [email or web address] [address], [place], [address], 12/30/2023 14:14:10 12/30/19 24 12/30/2023 XR, lumbo sacra l spine , 2 or 3 view No observ ation record ed. [email or web address] [address], [place], [address], 12/30/2023 14:14:21 01/22/20 24 01/22/2024 XR, chest No observ ation record ed. [address] [address], [place], [address], 01/22/2024 11:16:05 01/22/20 24 01/22/2024 LDCT, chest , for lung cance r scree audra No observ ation record ed. [address] [facility], [place], [address], 01/22/2024 17:06:54 01/22/20 24 01/22/2024 CT, angio gram, chest , w/ contr ast No observ ation record ed. [address] [facility], [place], [address], 03/12/2024 11:08:31 02/24/20 24 02/24/2024 US, doppl er echoc ardio gram No observ ation record ed. [address] [address], [place], [address], 03/12/2024 10:02:16 03/25/20 24 03/25/2024 XR, chest , 2 view No observ ation record ed. [address] [address], [place], [address], 03/31/2024 15:49:25 03/25/20 24 03/25/2024 CT, angio gram, chest , w/ contr ast No observ ation record ed. [address], [place], [address], 03/31/2024 15:49:25 04/02/20 24 04/02/2024 CT, brain , w/o contr ast No observ ation record ed. [address], [place], [address], 04/09/2024 11:57:47 04/02/20 24 04/02/2024 XR, chest No observ ation record ed. [address], [place], [address], 04/09/2024 11:57:47 04/29/20 24 04/08/2024 imagi ng/di agnos tic resul t No observ ation record ed. [address], [place], [address], 04/29/2024 09:51:53 Result Notes None recorded. Problems Name Problem SNOMED Code Status Onset Date Resolution Date Notes Provider Name and Address Organization Details Recorded Time Depressive disorder 63426744 Active 2022 Ang Patterson MD [address], [place], [address], [employer] 3 15:00:33 Anxiety disorder 475345168 Active 2022 Ang Patterson MD [address], [place], [address], [employer] 3 15:00:39 Posttraumat ic stress disorder 67734284 Active 2022 Ang Patterson MD [address], [place], [address], [employer] 3 15:00:45 Obesity 012977457 Active 2022 Ang Patterson MD [address], [place], [address], [employer] [facility] [place] [employer] [facility] 3 15:01:02 Chronic neck pain 0004208450674 Active 2022 Ang Patterson MD [address], [address], [place], [address], [employer] [facility] [employer] [facility] 3 15:03:12 Chronic low back pain 508932368 Active 2022 Ang Patterson MD [address], [place], [address], [employer] [facility] [employer] [facility] 3 15:03:20 Cervical spondylosis without myelopathy 307937904 Active 2022 Ang Patterson MD [address], [place], [address], [employer] [facility] [employer] [facility] 3 15:17:42 Ex-smoker 6207850 Active 2022 Ang Patterson MD [address], [place], [address], [employer] [facility] [employer] [facility] 3 15:17:55 Degeneratio n of cervical interverteb ral disc 81366512 Active 2022 Ang Patterson MD [address], [place], [address], [employer] [facility] [employer] [facility] 3 14:38:13 Otalgia of right ear 9404895767 Active 2022 Ang Patterson MD [address], [place], [address], [employer] [facility] [employer] [facility] 3 09:56:32 Chronic idiopathic constipatio n 91259306 Active 2022 Ang Patterson MD [address], [place], [address], [employer] [facility] [employer] [facility] 3 09:58:26 Gastroesoph ageal reflux disease without esophagitis 950215976 Active 2022 Ang Patterson MD [address], [place], [address], [facility] [employer] [facility] [employer] [facility] 3 09:59:58 Xerostomia 77610050 Active 2022 Ang Patterson MD [address], [place], [address], [facility] [employer] [facility] [employer] [facility] 3 10:05:03 Anemia 043602942 Active 2022 Ang Patterson MD [address], [place], [address], [facility] [employer] [facility] [employer] [facility] 3 14:59:07 Vitamin D deficiency 22726012 Active 2023 Ang Patterson MD [address] [address], [place], [address], [facility] [employer] [facility] [employer] [facility] 4 10:31:01 Hyperlipide ana 90062873 Active 2023 Ang Patterson MD [address], [address] [address], [place], [address], [employer] [facility] [employer] [facility] 4 10:31:30 Pain of bilateral hands 6336917694547 9109 Active 2023 Ang Patterson MD [address], [address] [address], [place], [address], [facility] [employer] [facility] [employer] [facility] 4 10:34:43 Intussuscep tion of small intestine 747450941 Active 2023 SHIRA Mckeon [address], [place], [address], [facility] [employer] [facility] 4 14:12:52 Pulmonary embolism 28727991 Active 2023 Ang Patterson MD [address] [address], [place], [address], [facility] [employer] [facility] [employer] [facility] 4 10:05:37 Pulmonary embolism with pulmonary infarction 6210343928733 Active 2023 Ang Patterson MD [address] [address], [place], [address], [facility] 4 10:13:28 Dyspnea on exertion 03994285 Active 2023 Ang Patterson MD [address] [address], [place], [address], [facility] 4 15:57:53 Tremor 31584255 Active 2023 Ang Patterson MD [address] [id number]|2025-01-17 19:14:52|2025-01-17 19:14:52|PC.NURSE||||"Pt. alerted this RN that she self removed her IV. Catheter intact. No active bleeding."
--- OUTSIDE RECORDS SUMMARY | 2025-01-17 18:23 | XMS_ITS | Referral Summary ---
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 file Not on file Not on file Last Filed Vital Signs Vital Sign Reading Time Taken Comments Blood Pressure 135/81 07/15/2024 10:44 AM PROCESS ENGINEERING TECHNICIAN Pulse 70 07/15/2024 10:44 AM PROCESS ENGINEERING TECHNICIAN Temperature 36.7 C (98 F) 07/15/2024 10:44 AM PROCESS ENGINEERING TECHNICIAN Respiratory Rate 18 05/10/2021 3:55 PM CDT Oxygen Saturation 97% 05/10/2021 3:55 PM CDT Inhaled Oxygen Concentration - - Weight 88 kg (194 lb) 07/15/2024 10:44 AM PROCESS ENGINEERING TECHNICIAN Height 165.1 cm (5' 5 ) 07/15/2024 10:44 AM PROCESS ENGINEERING TECHNICIAN Body Mass Index 32.28 07/15/2024 10:44 AM PROCESS ENGINEERING TECHNICIAN Plan of Treatment Not on file Procedures Procedure Name Priority Date/Time Associated Diagnosis Comments HEPATITIS C ANTIBODY Routine 07/15/2024 12:49 PM PROCESS ENGINEERING TECHNICIAN Effusion of joint, unspecified location Arthralgia, unspecified joint from Last 3 Months or Most Recently Relevant to Health Maintenance Results * Hepatitis C antibody Blood (07/15/2024 12:49 PM PROCESS ENGINEERING TECHNICIAN) Hep C Ab Nonreactive Nonreactive Comment:Antibodies to HCV no t detected. Does NOT exclude the possibility of recent exposure to HCV. Current interpretive data was last revised on 22 Blood 07/15/2024 12:4 9 PM PROCESS ENGINEERING TECHNICIAN 07/15/2024 1:25 PM PROCESS ENGINEERING TECHNICIAN Jessie Sherwood MD LAB MICROBIOLOGY - GENERAL ORDERABLES Final Result [facility] Department [place] [address] from Last 3 Months or Most Recently Relevant to Health Maintenance Insurance [place] [facility] Care Teams Undercoater Relationship Specialty Start Date End Date Keven Gonzalez DO [address] [place] [address] PCP - General Family Medicine 05/29/24 Kendrick Chacon MD Emergency Medicine 04/27/20 Edy Yadav MD [address] [facility] [address] Consulting Physician Pain Management 04/28/21
--- OUTSIDE RECORDS SUMMARY | 2025-01-17 18:23 | XMS_ITS | Clinical Summary ---
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] HEPATITIS C ANTIBODY Routine 07/15/2024 12:49 PM SPOOL TENDER Effusion of joint, unspecified location Arthralgia, unspecified joint from Last 3 Months or Most Recently Relevant to Health Maintenance Results * Hepatitis C antibody Blood (07/15/2024 12:49 PM SPOOL TENDER) Hep C Ab Nonreactive Nonreactive Comment:Antibodies to HCV no t detected. Does NOT exclude the possibility of recent exposure to HCV. Current interpretive data was last revised on 22 Blood 07/15/2024 12:4 9 PM SPOOL TENDER 07/15/2024 1:25 PM SPOOL TENDER us Jessie Sherwood MD LAB MICROBIOLOGY - GENERAL ORDERABLES Final Result [facility] Department [place] [address] from Last 3 Months or Most Recently Relevant to Health Maintenance [place] [address] [address] [place] [address] [facility] Care Teams Lump Maker Relationship Specialty Start Date End Date Keven Gonzalez DO [address] [place] [id number] PCP - General Family Medicine 05/29/24 Kendrick Chacon MD Emergency Medicine 04/27/20 Edy Yadav MD [address] [facility] [place] [address] Consulting Physician Pain Management 04/28/21
--- OUTSIDE RECORDS SUMMARY | 2025-01-17 18:23 | XMS_ITS | CONTINUITY OF CARE DOCUMENT ---
Author Name ramakrishna durbin Address Unknown Organization [facility] Address [id number] [place] [address] [address] [place] [address] Phone [phone] Care Team Providers Care Circulation Clerk Name Role Phone Iggy ANGELES, Shavonne Miramontes Unavailable [phone] CHARLOTTE DOWD MD Unavailable CHARLOTTE DOWD MD Unavailable [phone] PROBLEMS Condition Status Date Provider Notes Cardiology examination active Shavonne mensah MD Pulmonary embolism active Shavonne Parkinson MD Tremor active Shavonne Parkinson MD ENCOUNTERS Date Type Provider Location Encounter Diag nosis - In-person encounter Office Visit Shavonne Parkinson MD [place] [facility] Cardiology examinationPulmonary embolismTremor VITAL SIGNS Date [...] constitution party ID [place] MEDICAID (2) Medicaid [id number] ADVANCE DIRECTIVES Name Date DISCUSSED - NO [...] is normal. Shavonne Parkinson MD Cardiology:03/25/[address] [facility] MPRESSION: 1 . Pulmonary embolism with multiple [...]
[2025-01-17 18:24] VITALS: BP 142/66; PULSE 110; RESP 32; TEMP 36.8; O2SAT 100
--- NOTE | 2025-01-17 18:33 | ED_ITS ---
HPI - SOB/Dyspnea General Chief Complaint: Shortness of Breath/Dyspnea <Chen Hernandez PA-C - Last Filed: 01/18/25 03:09> Stated Complaint: N/V/D <Chen Hernandez PA-C - Last Filed: 01/18/25 03:09> Time Seen by Provider: 01/17/25 20:35 <Chen Hernandez PA-C - Last Filed: 01/18/25 03:09> Focused HPI: 49 y/o F with PMHx of asthma, COPD, PE not on anticoagulants presents to the ED for dyspnea This started prior to arrival. Patient states she went outside to talk to her son, had a coughing fit and began to feel short of breath. she does not believe she aspirated. She reports 5 episodes of vomiting after this started. She also endorses a hoarse voice over the past few days but denies swelling to her throat or a sore. She denies chest pain, abdominal pain, fevers. Patient states she was discontinued off of her anticoagulant couple weeks ago for unknown reason. GENERAL: anxious appearing, cursing at myself and staff HEAD: Normocephalic, atraumatic. ENT: hoarse voice. posterior pharynx unremarkable without erythema or edema, no tonsillar hypertrophy or exudates. No edema or uvular hydrops CHEST: Minimally decreased lung sounds throughout, no wheezing, rales or rhonchi. tachypneic HEART: Regular rate and rhythm. NEURO: Alert and oriented x3. Patient screened in triage and initial orders placed. Additional care and disposition to be based upon diagnostic testing and treatment. <Chen Hernandez PA-C - Last Filed: 01/18/25 03:09> History of Present Illness HPI Narrative: per MSE <Rose Escobar MD - Last Filed: 01/17/25 20:57> Related Data Home Medications: Home Medications Medication Instructions Recorded Confirmed Last Taken Type citalopram 40 mg tablet 40 mg PO DAILY 09/06/22 01/08/25 06/09/24 History clonazepam 0.5 mg tablet 0.5 mg PO BID PRN Anxiety 03/22/23 01/08/25 06/09/24 History atorvastatin 10 mg tablet 10 mg PO QPM 10/01/24 01/08/25 Unknown History bupropion HCl 300 mg 24 hr tablet, 300 mg PO DAILY 10/01/24 01/08/25 Unknown History extended release hydroxychloroquine 200 mg tablet 200 mg PO Q12H 10/01/24 01/08/25 Unknown History ergocalciferol (vitamin D2) 1,250 50,000 unit PO WEEKLY 11/10/24 01/08/25 Unknown History mcg (50,000 unit) capsule <Chen Hernandez PA-C - Last Filed: 01/18/25 03:09> Allergies/Adverse Reactions: Allergies Allergy/AdvReac Type Severity Reaction Status Date / Time naproxen AdvReac Gastrointestinal Verified 01/17/25 18:22 Upset <Chen Hernandez PA-C - Last Filed: 01/18/25 03:09> [facility] Past Medical History Medical History: Medical History Irritable bowel syndrome with constipation Choking Rheumatoid arthritis Chronically dry eyes Former cigarette smoker History of rhabdomyolysis December 2023 Spondylosis, lumbosacral Degenerative disc disease, lumbar L4-S1 Degenerative disc disease, cervical C4-C7 Chronic back pain Neck and low back Irritable bowel syndrome Gastroesophageal reflux disease Chronic obstructive pulmonary disease Labral tear of right hip joint Asthma Depression Anxiety <LANDY Sevilla Last Filed: 01/18/25 03:09> Surgical History Surgical History: Surgical History History of colonoscopy with polypectomy (~1999) History of right cataract surgery Status post anal fissurectomy History of section (2016) X1 History of tonsillectomy History of cholecystectomy <Chen Hernandez PA-C - Last Filed: 01/18/25 03:09> Family History Family History: Family History Father Diabetes mellitus Hypertension Mother Hypertension Osteoarthritis Rheumatoid arthritis Grandparent Breast cancer Sibling Lupus <LANDY Sevilla Last Filed: 01/18/25 03:09> Social History Social History: Social History Social History: She is . She lives at home with her 7-year-old daughter she has 2 grown sons other well. She smoked 1 pack of cigarettes per day for twenty-two years but quit in 2020. She denies any significant alcohol use. She denies illicit substance use. She works at an [employer]. Surrogate medical decision maker: Flakito Phelan, son. Code status: Full code. Smoking packs per day: 1 Smoking cigarettes per day: 20.0 Years smoked: 20 Smoking pack-years: 20.00 Smoking status: Former smoker Tobacco type: cigarettes Alcohol intake: never Substance use: never Substance use type: does not use Other substance usage details: denies IVDU Do You Feel Safe in your Home?: Yes Lack of Transportation: No Lack of Food: Never True Current Housing: I Have Housing Concerned About Future Housing: No Difficulty Paying Gas/Electric Bills: No Difficulty Paying for Meds: No Currently Unemployed: No Education: High School Diploma/GED Difficulty w/ Childcare or Family Care: No Living arrangements: with family Additional living arrangements comments: sons and daughter Spiritual care concerns: No <Chen Hernandez PA-C - Last Filed: 01/18/25 03:09> Exam 2 Narrative: EXAMINATION OF ORGAN SYSTEMS/BODY AREAS: Constitutional: Vital signs per nursing GENERAL:[No acute distress, non-toxic appearing.] HEAD: Normal with no signs of head trauma. EYES: EOMI, conjunctiva normal ENT: Hoarse but no pharyngeal edema LUNGS: Nonlabored breathing. HEART: [Regular rate and rhythm] ABD: [Soft], [nontender to palpation] EXT: Normal range of motion SKIN: [No rashes or lesions.] NEURO: [Alert and oriented x 3. No gross focal sensory or strength deficits.] PSYCH: Normal affect <Rose Escobar MD - Last Filed: 01/17/25 20:57> Course Vital Signs Vital signs: Vital Signs Temperature 98.3 F 01/17/25 18:24 Pulse Rate 110 H 01/17/25 18:24 Respiratory Rate 32 H 01/17/25 18:24 Blood Pressure 142/66 H 01/17/25 18:24 Pulse Oximetry 100 01/17/25 18:24 Oxygen Delivery Room Air 01/17/25 18:24 Temperature 98.7 F 01/17/25 22:17 Pulse Rate 76 01/17/25 22:17 Respiratory Rate 22 H 01/17/25 22:17 Blood Pressure 137/86 01/17/25 22:17 Pulse Oximetry 94 01/17/25 22:17 Oxygen Delivery Room Air 01/17/25 20:09 Fraction of Inspired Oxygen 21 01/17/25 19:26 <Chen Hernandez PA-C - Last Filed: 01/18/25 03:09> Vital Signs Temperature 98.3 F 01/17/25 18:24 Pulse Rate 110 H 01/17/25 18:24 Respiratory Rate 32 H 01/17/25 18:24 Blood Pressure 142/66 H 01/17/25 18:24 Pulse Oximetry 100 01/17/25 18:24 Oxygen Delivery Room Air 01/17/25 18:24 Temperature 98.7 F 01/17/25 22:17 Pulse Rate 76 01/17/25 22:17 Respiratory Rate 22 H 01/17/25 22:17 Blood Pressure 137/86 01/17/25 22:17 Pulse Oximetry 94 01/17/25 22:17 Oxygen Delivery Room Air 01/17/25 20:09 Fraction of Inspired Oxygen 21 01/17/25 19:26 <Rose Escobar MD - Last Filed: 01/17/25 20:57> MDM - SOB/Dyspnea MDM Narrative Medical decision making narrative: ED COURSE AND MEDICAL DECISION MAKINF with acute dyspnea and wheezing likely due to acute COPD exacerbation based on history and exam. Patient is hemodynamically stable. Nebulizer treatments are started and steroids given orally. Patient monitored in the ED for a couple of hours and on reevaluation is feeling significantly better. No respiratory distress or accessory muscle use. Good air movement bilateral lungs. Chest x-ray without any obvious pneumonia on my independent interpretation. Labs unremarkable including negative troponin, BNP, D-dimer, except for K which is low possibly from hyperventilation but will be repleted. Prescriptions for [steroid course] provided. She is given strict return precautions and patient is discharged in stable/improved condition. <Rose Escobar MD - Last Filed: 01/17/25 20:57> Lab Data Result diagrams: 01/17/25 18:37 01/17/25 18:37 <Chen Hernandez PA-C - Last Filed: 01/18/25 03:09> Labs: Lab Results 01/17/25 Range/Units 18:37 WBC 8.2 (4.5-10.0) K/mm3 RBC 4.51 (4.2-5.4) M/mm3 Hgb 13.8 D (12.0-15.0) g/dL Hct 42.1 (37.0-47.0) % MCV 93.3 (80-100) fl MCH 30.6 (26-34) pg MCHC 32.8 (32-36) g/dl RDW 12.2 (11.5-14.5) % Plt Count 419 H D (150-375) k/mm3 MPV 9.5 (7.4-10.4) fl Immature Gran % (Auto) 0.7 H (0-0.5) % Neut % (Auto) 50.5 (45.5-73.1) % Lymph % (Auto) 37.4 (18.3-44.2) % Jay % (Auto) 8.3 (2.6-8.5) % Eos % (Auto) 2.0 (0-4.4) % Baso % (Auto) 1.1 (0.2-1.2) % Lymph # (Auto) 3.06 (0.9-3.2) K/mm3 Jay # (Auto) 0.7 H (0.1-0.6) K/mm3 Eos # (Auto) 0.2 (0-0.3) K/mm3 Baso # (Auto) 0.1 (0.0-0.1) K/mm3 Abs Immat Gran (auto) 0.06 H (0.00-0.031) K/mm3 Absolute Neuts (auto) 4.1 (1.3-6.7) K/mm3 Absolute Nucleated RBC 0.000 (0.0-0.012) K/mm3 Nucleated RBC % 0.0 (0.0-0.2) % PT 12.2 (11.1-14.7) Seconds INR 0.9 APTT 23.2 (22.3-36.8) Seconds D-Dimer 0.28 (<0.48) ug/mL Sodium 141 (137-145) mmol/L Potassium 3.1 L (3.4-5.0) mmol/L Chloride 102 (98-107) mmol/L Carbon Dioxide 27 (22-30) mmol/L Anion Gap 12 (4-12) mmol/L BUN 10 (7-17) mg/dL Creatinine 0.84 (0.7-1.0) mg/dL Estim Creat Clear Calc Not Reportable Estimated GFR > 60 (59 - ) Glucose 107 (65-110) mg/dL Calcium 9.8 (8.4-10.2) mg/dL Magnesium 2.0 (1.6-2.3) mg/dL Total Bilirubin 0.2 (0.2-1.3) mg/dL AST 30 (14-36) U/L ALT 28 (6-35) U/L Alkaline Phosphatase 80 (38-126) U/L Troponin I < 0.012 (0.000-0.034) ng/mL NT-Pro-B Natriuret Pep 96 (19.9-100) pg/mL Total Protein 7.0 (6.3-8.2) g/dL Albumin 4.9 (3.5-5.1) g/dL <Chen Hernandez PA-C - Last Filed: 01/18/25 03:09> Lab Results 01/17/25 Range/Units 18:37 WBC 8.2 (4.5-10.0) K/mm3 RBC 4.51 (4.2-5.4) M/mm3 Hgb 13.8 D (12.0-15.0) g/dL Hct 42.1 (37.0-47.0) % MCV 93.3 (80-100) fl MCH 30.6 (26-34) pg MCHC 32.8 (32-36) g/dl RDW 12.2 (11.5-14.5) % Plt Count 419 H D (150-375) k/mm3 MPV 9.5 (7.4-10.4) fl Immature Gran % (Auto) 0.7 H (0-0.5) % Neut % (Auto) 50.5 (45.5-73.1) % Lymph % (Auto) 37.4 (18.3-44.2) % Jay % (Auto) 8.3 (2.6-8.5) % Eos % (Auto) 2.0 (0-4.4) % Baso % (Auto) 1.1 (0.2-1.2) % Lymph # (Auto) 3.06 (0.9-3.2) K/mm3 Jay # (Auto) 0.7 H (0.1-0.6) K/mm3 Eos # (Auto) 0.2 (0-0.3) K/mm3 Baso # (Auto) 0.1 (0.0-0.1) K/mm3 Abs Immat Gran (auto) 0.06 H (0.00-0.031) K/mm3 Absolute Neuts (auto) 4.1 (1.3-6.7) K/mm3 Absolute Nucleated RBC 0.000 (0.0-0.012) K/mm3 Nucleated RBC % 0.0 (0.0-0.2) % PT 12.2 (11.1-14.7) Seconds INR 0.9 APTT 23.2 (22.3-36.8) Seconds D-Dimer 0.28 (<0.48) ug/mL Sodium 141 (137-145) mmol/L Potassium 3.1 L (3.4-5.0) mmol/L Chloride 102 (98-107) mmol/L Carbon Dioxide 27 (22-30) mmol/L Anion Gap 12 (4-12) mmol/L BUN 10 (7-17) mg/dL Creatinine 0.84 (0.7-1.0) mg/dL Estim Creat Clear Calc Not Reportable Estimated GFR > 60 (59 - ) Glucose 107 (65-110) mg/dL Calcium 9.8 (8.4-10.2) mg/dL Magnesium 2.0 (1.6-2.3) mg/dL Total Bilirubin 0.2 (0.2-1.3) mg/dL AST 30 (14-36) U/L ALT 28 (6-35) U/L Alkaline Phosphatase 80 (38-126) U/L Troponin I < 0.012 (0.000-0.034) ng/mL NT-Pro-B Natriuret Pep 96 (19.9-100) pg/mL Total Protein 7.0 (6.3-8.2) g/dL Albumin 4.9 (3.5-5.1) g/dL <Rose Escobar MD - Last Filed: 01/17/25 20:57> Discharge Plan Discharge Clinical Impression: Acute exacerbation of chronic obstructive pulmonary disease <Chen Hernandez PA-C - Last Filed: 01/18/25 03:09> Patient Disposition: Home <Chen Hernandez PA-C - Last Filed: 01/18/25 03:09> Condition: Stable <LANDY Sevilla Last Filed: 01/18/25 03:09> Instructions: Acute Bronchitis (ED) <LANDY Sevilla Last Filed: 01/18/25 03:09> Additional Instructions: Please follow up with your doctor; you can always return for any further issues. <Chen Hernandez PA-C - Last Filed: 01/18/25 03:09> Patient Language: Chadian <Chen Hernandez PA-C - Last Filed: 01/18/25 03:09> Prescriptions: New prednisone 20 mg tablet 40 mg PO DAILY 4 Days Qty: 8 0RF No Action clonazepam 0.5 mg tablet 0.5 mg PO BID PRN (Reason: Anxiety) albuterol sulfate 90 mcg/actuation HFA aerosol inhaler 2 puff inhalation Q4-6H PRN (Reason: shortness of breath or wheezing) 30 Days Qty: 8.5 0RF budesonide-formoterol 160-4.5 mcg/actuation HFA aerosol inhaler 1 puff inhalation Q12H Qty: 10.2 3RF ferrous sulfate [FeroSul] 325 mg (65 mg iron) tablet 325 mg PO DAILY Qty: 90 2RF famotidine 40 mg tablet 40 mg PO HS Qty: 90 0RF ergocalciferol (vitamin D2) 1,250 mcg (50,000 unit) capsule 50,000 unit PO WEEKLY fluticasone propionate [Flonase Allergy Relief] 50 mcg/actuation spray,suspension 2 spray intranasal BID Qty: 16 3RF Rx Instructions: administer into each nostril. Aim back/up/out linaclotide 72 mcg capsule 72 mcg capsule 0RF citalopram 40 mg tablet 40 mg PO DAILY atorvastatin 10 mg tablet 10 mg PO QPM bupropion HCl 300 mg tablet extended release 24 hr 300 mg PO DAILY hydroxychloroquine 200 mg tablet 200 mg PO Q12H furosemide 20 mg tablet See Rx Instructions .ROUTE .COMPLEX Qty: 30 0RF Dose Instruction: TAKE 1 TABLET BY MOUTH DAILY Rx Instructions: TAKE 1 TABLET BY MOUTH DAILY carbamazepine [Tegretol] 200 mg tablet 200 mg PO Q12H 30 Days Qty: 60 1RF methocarbamol 500 mg tablet See Rx Instructions .ROUTE .COMPLEX Qty: 90 0RF Dose Instruction: TAKE 1 TABLET BY MOUTH THREE TIMES DAILY NEEDED FOR MUSCLE SPASM Rx Instructions: TAKE 1 TABLET BY MOUTH THREE TIMES DAILY NEEDED FOR MUSCLE SPASM hyoscyamine sulfate 0.125 mg tablet,disintegrating See Rx Instructions .ROUTE .COMPLEX Qty: 30 0RF Dose Instruction: DISSOLVE 1 TABLET BY MOUTH EVERY 4-8 HOURS NEEDED Rx Instructions: DISSOLVE 1 TABLET BY MOUTH EVERY 4-8 HOURS NEEDED pantoprazole 40 mg tablet,delayed release (DR/EC) 40 mg PO BID 30 Days Qty: 60 0RF <Chen Hernandez PA-C - Last Filed: 01/18/25 03:09> Follow-up/Referrals: Keven Gonzalez DO [Primary Care Provider] - <Chen Hernandez PA-C - Last Filed: 01/18/25 03:09>
[2025-01-17 18:42] LABS: Basophils Absolute Auto 0.1 K/mm3 (0.0-0.1); Basophils Percent Auto 1.1 % (0.2-1.2); Eosinophils Absolute Auto 0.2 K/mm3 (0-0.3); Hematocrit 42.1 % (37.0-47.0); Hemoglobin 13.8 g/dL (12.0-15.0); Immature Granulocyte Absolute 0.06 K/mm3 (0.00-0.031); Immature Granulocyte Percent A 0.7 % (0-0.5); Lymphocytes Absolute Auto 3.06 K/mm3 (0.9-3.2); Lymphocytes Percent Auto 37.4 % (18.3-44.2); Mean Corpuscular HGB Conc 32.8 g/dl (32-36); Mean Corpuscular Hemoglobin 30.6 pg (26-34); Mean Corpuscular Volume 93.3 fl (80-100); Mean Platelet Volume 9.5 fl (7.4-10.4); Monocytes Absolute Auto 0.7 K/mm3 (0.1-0.6); Monocytes Percent Auto 8.3 % (2.6-8.5); Neutrophils Absolute Auto 4.1 K/mm3 (1.3-6.7); Neutrophils Percent Auto 50.5 % (45.5-73.1); Platelet Count Result 419 k/mm3 (150-375); Red Blood Count 4.51 M/mm3 (4.2-5.4); Red Cell Distribution Width 12.2 % (11.5-14.5); White Blood Count 8.2 K/mm3 (4.5-10.0)
[2025-01-17 18:52] LABS: Alanine Aminotransferase 28 U/L (6-35); Albumin Level 4.9 g/dL (3.5-5.1); Alkaline Phosphatase 80 U/L (38-126); Anion Gap 12 mmol/L (4-12); Aspartate Amino Transferase 30 U/L (14-36); Bilirubin,Total 0.2 mg/dL (0.2-1.3); Blood Urea Nitrogen 10 mg/dL (7-17); Calcium 9.8 mg/dL (8.4-10.2); Carbon Dioxide 27 mmol/L (22-30); Chloride 102 mmol/L (98-107); Estimated Glomerular Filt Rate > 60; Glucose 107 mg/dL (65-110); Potassium 3.1 mmol/L (3.4-5.0); Sodium 141 mmol/L (137-145)
[2025-01-17 18:54] LABS: INR 0.9; Partial Thromboplastin Time 23.2 Seconds (22.3-36.8); Prothrombin Time 12.2 Seconds (11.1-14.7)
[2025-01-17 19:00] LABS: D Dimer 0.28 ug/mL (<0.48)
[2025-01-17 19:04] LABS: NT Pro B Type Natriuretic Pept 96 pg/mL (19.9-100); Troponin I < 0.012 ng/mL (0.000-0.034)
[2025-01-17] MEDS: IPRATROPIUM 0.5 MG/ALBUTEROL SULFATE 2.5 MG AMPUL.NEB 3 ML INHALATION ×3 (19:19→19:20)
[2025-01-17 19:23] VITALS: PULSE 79; RESP 20
[2025-01-17 19:26] VITALS: O2SAT 97
--- NOTE | 2025-01-17 20:30 | PC.NURSE ---
called x 2 no answer.
[2025-01-17 20:31] VITALS: PULSE 81; RESP 20
--- NOTE | 2025-01-17 20:44 | PC.NURSE ---
unable to get iv access. edp antoni at bedside vrbo ok to give po medications. no covid/flu/rsv swab needed.
--- OUTSIDE RECORDS SUMMARY | 2025-01-17 20:54 | XMS_ITS | Clinical Summary ---
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 Not on file Not on file Obstetrics History Last Filed Vital Signs Vital Sign Reading Time Taken Comments Blood Pressure 135/81 07/15/2024 10:44 AM INTERNET SPECIALIST Pulse 70 07/15/2024 10:44 AM INTERNET SPECIALIST Temperature 36.7 C (98 F) 07/15/2024 10:44 AM INTERNET SPECIALIST Respiratory Rate 18 05/10/2021 3:55 PM CDT Oxygen Saturation 97% 05/10/2021 3:55 PM CDT Inhaled Oxygen Concentration - - Weight 88 kg (194 lb) 07/15/2024 10:44 AM INTERNET SPECIALIST Height 165.1 cm (5' 5 ) 07/15/2024 10:44 AM INTERNET SPECIALIST Body Mass Index 32.28 07/15/2024 10:44 AM INTERNET SPECIALIST Plan of Treatment Health Maintenance Due Date [...] HEPATITIS C ANTIBODY Routine 07/15/2024 12:49 PM INTERNET SPECIALIST Effusion of joint, unspecified location Arthralgia, unspecified joint from Last 3 Months or Most Recently Relevant to Health Maintenance Results * Hepatitis C antibody Blood (07/15/2024 12:49 PM INTERNET SPECIALIST) Hep C Ab Nonreactive Nonreactive Comment:Antibodies to HCV no t detected. Does NOT exclude the possibility of recent exposure to HCV. Current interpretive data was last revised on 22 Blood 07/15/2024 12:4 9 PM INTERNET SPECIALIST 07/15/2024 1:25 PM INTERNET SPECIALIST us Jessie Sherwood MD LAB MICROBIOLOGY - GENERAL ORDERABLES Final Result [facility] Department [place] [address] from Last 3 Months or Most Recently Relevant to Health Maintenance [place] [address] [place] [address] [facility] Care Teams Pit Manager Relationship Specialty Start Date End Date Keven Gonzalez DO [address] [place] [id number] PCP - General Family Medicine 05/29/24 Kendrick Chacon MD Emergency Medicine 04/27/20 Edy Yadav MD [address] [facility] [address] Consulting Physician Pain Management 04/28/21
--- OUTSIDE RECORDS SUMMARY | 2025-01-17 20:54 | XMS_ITS | Clinical Summary ---
Author Organization [facility] Address [address] [place] [address] Care Team Providers Care Box Storage Worker Name Role Phone Kendrick Chacon MD Primary Care Provider [phone] [facility],non-owned Affiliates and Associated Physician Practices is amultiple site organization consisting of ambulatory clinics and hospital sitesin [place], [place], [place] and [place]. This disclosure is being madepursuant to the Care Everywhere program and may not contain all information available regarding this patient. Last updated 18.[facility] Allergies No known active allergies Medications * [...] Active vitamin D, ergocalciferol, (DRISDOL) 1.25 MG (00483 UT) capsule TAKE 1 CAPSULE BY MOUTH [...] on file Legal Sex Female 1:45 PM ATTENDING PATHOLOGIST Gender Identity Not on file Sexual Orientation [...] patient's age to complete this topic Insurance [facility] SELF PAY NO INSURANCE Member Subscriber Plan / Payer (Ef fective for All Dates) Name:Anat Phelan Amanda Relation to Subscriber:Self Name:Anat Phelan Payer ID:Not on file Group ID:Not on file Type:Self Pay Address: [place], [place] Advance Directives Documents on File Type Date Recorded 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
--- OUTSIDE RECORDS SUMMARY | 2025-01-17 20:54 | XMS_ITS | Referral Summary ---
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 Not on file Not on file Last Filed Vital Signs Vital Sign Reading Time Taken Comments Blood Pressure 135/81 07/15/2024 10:44 AM STAFF DEVELOPER Pulse 70 07/15/2024 10:44 AM STAFF DEVELOPER Temperature 36.7 C (98 F) 07/15/2024 10:44 AM STAFF DEVELOPER Respiratory Rate 18 05/10/2021 3:55 PM CDT Oxygen Saturation 97% 05/10/2021 3:55 PM CDT Inhaled Oxygen Concentration - - Weight 88 kg (194 lb) 07/15/2024 10:44 AM STAFF DEVELOPER Height 165.1 cm (5' 5 ) 07/15/2024 10:44 AM STAFF DEVELOPER Body Mass Index 32.28 07/15/2024 10:44 AM STAFF DEVELOPER Plan of Treatment Not on file Procedures Procedure Name Priority Date/Time Associated Diagnosis Comments HEPATITIS C ANTIBODY Routine 07/15/2024 12:49 PM STAFF DEVELOPER Effusion of joint, unspecified location Arthralgia, unspecified joint from Last 3 Months or Most Recently Relevant to Health Maintenance Results * Hepatitis C antibody Blood (07/15/2024 12:49 PM STAFF DEVELOPER) Hep C Ab Nonreactive Nonreactive Comment:Antibodies to HCV no t detected. Does NOT exclude the possibility of recent exposure to HCV. Current interpretive data was last revised on 22 Blood 07/15/2024 12:4 9 PM STAFF DEVELOPER 07/15/2024 1:25 PM STAFF DEVELOPER Jessie Sherwood MD LAB MICROBIOLOGY - GENERAL ORDERABLES Final Result [facility] Department [place] [address] from Last 3 Months or Most Recently Relevant to Health Maintenance Insurance [employer] [facility] Care Teams Scutcher Tender Relationship Specialty Start Date End Date Keven Gonzalez DO [address] [place] [address] PCP - General Family Medicine 05/29/24 Kendrick Chacon MD Emergency Medicine 04/27/20 Edy Yadav MD [address] [facility] [address] Consulting Physician Pain Management 04/28/21
--- OUTSIDE RECORDS SUMMARY | 2025-01-17 20:54 | XMS_ITS | CONTINUITY OF CARE DOCUMENT ---
Author Name ramakrishna durbin Address Unknown Organization [facility] Address [address] [place] [address] [address] [place] [address] Phone [phone] Care Team Providers Care Reference Data Expert Name Role Phone Iggy ANGELES, Shavonne Miramontes Unavailable CHARLOTTE DOWD MD Unavailable [phone] CHARLOTTE DOWD MD Unavailable [phone] PROBLEMS Condition Status Date Provider Notes Cardiology examination active Shavonne mensah MD Pulmonary embolism active Shavonne Parkinson MD Tremor active Shavonne Parkinson MD ENCOUNTERS Date Type Provider Location Encounter Diag nosis - In-person encounter Office Visit Shavonne Parkinson MD [place] [facility] Cardiology examinationPulmonary embolismTremor VITAL SIGNS Date [...] [employer] [place] MEDICAID (2) Medicaid [id number] ADVANCE DIRECTIVES Name Date DISCUSSED - NO [...] is normal. Shavonne Parkinson MD Cardiology:03/25/24 1644 [facility] MPRESSION: 1 . Pulmonary embolism with [...]
[2025-01-17] MEDS: predniSONE 20 MG TABLET 40 MG PO (21:03)
[2025-01-17] MEDS: POTASSIUM CHLORIDE 20 MEQ ER TABLET 40 MEQ PO (21:03)
[2025-01-17 22:17] VITALS: BP 137/86; PULSE 76; RESP 22; TEMP 37.1; O2SAT 94
== END 2025-01-17 22:18 | disposition home or self-care (01) ==
LOC: ANHED 20:52
PROVIDERS: Physician Assistant; Emergency Provider Emergency Medicine; PCP Family Medicine
DX: J44.1 Chronic obstructive pulmonary disease with (acute) exacerbation (principal); M06.9 Rheumatoid arthritis, unspecified; K58.1 Irritable bowel syndrome with constipation; K21.9 Gastro-esophageal reflux disease without esophagitis; H04.129 Dry eye syndrome of unspecified lacrimal gland; F41.9 Anxiety disorder, unspecified; F32.A Depression, unspecified; Z86.711 Personal history of pulmonary embolism; Z87.891 Personal history of nicotine dependence; Z98.41 Cataract extraction status, right eye; Z90.49 Acquired absence of other specified parts of digestive tract; Z79.899 Other long term (current) drug therapy
CPT/HCPCS: 36415; 71045; 80053; 83735; 83880; 84484; 85025; 85380; 85610; 85730; 94640; 99284; A9270; J7512

== ENCOUNTER 2025-01-24 08:05 | Outpatient (CLI) | payer OTHER, SELFPAY ==
--- NOTE | ~2025-01-24 | MR_ITS ---
MRI of the lumbar spine Clinical History: Radiculopathy Technique: Axial T2-weighted images, and sagittal T1-weighted, T2-weighted, and T2 fat-sat images wer e acquired. Findings: No fracture or subluxation evident in the lumbar spine. Vertebral bodies maintain normal he ight and alignment. No bone marrow signal abnormality seen. At L1-L2, there is no disc bulge or herniation. There is mild to moderate facet hypertrophy. No spina l canal stenosis or neural foraminal narrowing. At L2-L3, there is no disc bulge or herniation. There is mild facet arthropathy. No central canal tarah nosis or definite neural foraminal narrowing. At L3-L4, there is moderate to advanced degenerative disc narrowing. There is diffuse disc bulge with moderate facet arthropathy. There is no alvino central canal stenosis. There is mild to moderate left neural foraminal narrowing. There is moderate to advanced right neural foraminal narrowing. At L4-L5, there is minimal disc bulge with moderate to advanced facet arthropathy. No central canal s tenosis. There is mild bilateral neural foraminal narrowing. At L5-S1, there is advanced degenerative disc narrowing. There is disc bulge without canal stenosis. There is moderate bilateral neural foraminal narrowing. Paravertebral soft tissues are unremarkable. Impression: Moderate degenerative spondylosis at L3-L4 and L5-S1, as detailed above. Reviewed, dictated and finalized at [facility]. Impression: Moderate degenerative spondylosis at L3-L4 and L5-S1, as detailed above.
--- OUTSIDE RECORDS SUMMARY | 2025-01-24 08:09 | XMS_ITS | Data Portability ---
Author Organization [facility] Phone2Action, Main Office Address [address] [place] [address] Assessment Encounter Date Assessment Date Assessment LastModified [...] per schedule. Cont f/u with Psych at [facility] as per schedule. Cont f/u with Gyne at [facility] as per schedule. HM: WWE - 06/23, [...] Pt will be calling her Pulmo at [facility] and see if she can be seen sooner. Pt declined for referral to Cardio. All meds verified with pt. Como 5/325 # 40 given today until she can see Sales And Merchandising Associate. Meds as directed. Good liquid and fiber intake explained. Diet and exercise explained in detail. BP diary education given and call us if any concerns. F/u with PT as per schedule. F/u with GI as per schedule. Cont f/u with Pulmo at [facility] as per schedule. Cont f/u with Psych at [facility] as per schedule. Cont f/u with Gyne at [facility] as per schedule. HM: WWE - 06/23, normal as per pt. Cont f/u with Gyne as per schedule. Mammo - 2 yrs ago. Ordered. Colonoscopy - Referred to GI. Flu - Pt declined. Tdap, Pneumo, Shingrix - At pharmacy/HD. F/u in 1 month. Lipids before next visit. Annual labs in 06/25. [email or web address] Not available 03/12/2024 11:09:21 03/31/2024 03/31/2024 48 [...] be seeing her Pulmo on 04/08/24 at [facility]. Will refer pt to Cardio, Pain clinic. [...] per schedule. Cont f/u with Pulmo at [facility] as per schedule. Cont f/u with Psych at [facility] as per schedule. Cont f/u with Gyne at [facility] as per schedule. HM: WWE - 06/23, normal as per pt. Cont f/u with Gyne as per schedule. Mammo - 2 yrs ago. Ordered. Colonoscopy - Referred to GI. Cologuard ordered. Flu - Pt declined. Tdap, Pneumo, Shingrix - At pharmacy/HD. F/u in 1-2 months. Annual labs in 06/25. Not available 03/31/2024 16:12:56 04/09/2024 04/09/2024 48 [...] per schedule. Cont f/u with Pulmo at [facility] as per schedule. Cont f/u with Psych at [facility] as per schedule. Cont f/u with Gyne at [facility] as per schedule. Educated pt about alarming [...] F/u as directed. Annual labs in 06/25. [email or web address] Not available 04/09/2024 14:37:51 Plan of Treatment Reminders Order Date Submit Date Provider Last Modified By Organization Details Last Modified Time Details Appointments None recorded. Lab noninvasive colorectal cancer DNA + occult blood screening, QL, stool 2023 024 [employer] (Cologuard Orders Only), [address], [address], [place], [address], 17:19:08 lipid panel, serum [address] (Lab), [address] [place], [address], 4 08:11:23 lipid panel, serum [address] (Lab), [address] [place], [address], 4 08:30:44 Referral neurologist referral - Please call patient to schedule an appointment . Thank you. 2023 024 [email or web address] [facility] - Neurology, [address] [facility], [place], [address], 4 08:52:35 cardiologis t referral - Please call patient to schedule an appointment . Thank you. 2023 024 [email or web address] [facility] Heart [facility] Vascular Referral Fax Line, [address] [facility], [facility] [address], [place], [address], 4 07:47:52 pain management referral - Please call patient to schedule an appointment . Thank you. 2023 024 [email or web address] [facility] Pain Management, [address] [facility] [address], [place], [address], 4 07:46:41 hematologis t referral - Multiple PEs, ex-smoker. Please call patient to schedule an appointment . Thank you. 2023 024 [email or web address] Matthew Ungernti , [address] [place], [address], 4 08:54:02 gastroenter ologist referral - Patient has new onset intussuscep tion , found on CT 01/21, not present on CT 12/12. Diverticulo sis. Please call patient to schedule an appointment . Thank you. 2023 [email or web address] [facility] Gastroenterol [facility]gy, [address], [address], [place], [address], 4 08:51:43 gastroenter ologist referral - Please call patient to schedule an appointment . 2023 024 [email or web address] Brenden Carlson MD, [address] [facility], [address], [place], [address], 4 08:35:15 Procedures None recorded. Surgeries None recorded. Imaging XR, hand, 3 or more view 2023 024 [email or web address] Not available 09:04:28 Medication Orders ipratropium 0.5 mg-albutero l 3 mg (2.5 mg base)/3 mL nebulizatio n soln 2023 [facility] #55904, [address], [place], [id number], 4 12:05:29 albuterol sulfate HFA 90 mcg/actuati on aerosol inhaler 2023 024 [facility] #10299, [address], [place], [place], [id number], 4 12:05:29 furosemide 20 mg tablet 2023 [facility] #14887, [address], [place], [place], [id number], 4 12:05:30 omeprazole 40 mg capsule,del ayed release 2023 [facility] #01427, [address], [place], [place], [id number], 4 12:05:30 famotidine 40 mg tablet 2023 [email or web address] #03443, [address], [place], [place], [id number], 4 12:05:29 atorvastati n 10 mg tablet 2023 [email or web address] #10104, [address], [place], [place], [id number], 4 12:05:33 ipratropium 0.5 mg-albutero l 3 mg (2.5 mg base)/3 mL nebulizatio n soln 2023 024 [facility] #62005, [address], [place], [place], [id number], 4 16:00:21 Eliquis 5 mg tablet 2023 024 [facility] #12517, [address], [place], [place], [id number], 4 16:00:24 albuterol sulfate HFA 90 mcg/actuati on aerosol inhaler 2023 024 [facility] #54774, [address] [facility], [place], [place], [id number], 4 16:00:26 furosemide 20 mg tablet 2023 024 [facility] #66068, [address] [facility] [address], [place], [place], [id number], 4 16:00:26 gabapentin 600 mg tablet 2023 024 [facility] #59351, [address], [place], [place], [id number], 4 16:00:23 baclofen 20 mg tablet 2023 024 [email or web address] #87099, [address] [facility] [address], [place], [place], [id number], 4 16:00:31 atorvastati n 10 mg tablet 2023 024 [email or web address] #83625, [address] [facility] [address], [place], [place], [id number], 4 16:00:27 ergocalcife rol (vitamin D2) 1,250 mcg (50,000 unit) capsule 2023 024 [facility] #62512, [address], [place], [place], [id number], 4 16:00:29 omeprazole 40 mg capsule,del ayed release 2023 024 [facility] #45445, [address], [place], [place], [id number], 4 16:00:27 famotidine 40 mg tablet 2023 024 [facility] #25425, [address], [place], [place], [id number], 4 16:00:21 ipratropium 0.5 mg-albutero l 3 mg (2.5 mg base)/3 mL nebulizatio n soln 2023 024 [facility] #95654, [address], [place], [place], [id number], 4 10:22:20 Eliquis 5 mg tablet 2023 024 [email or web address] #35792, [address] [facility] [address], [place], [place], [id number], 4 10:22:22 hydrocodone 5 mg-acetamin ophen 325 mg tablet 2023 024 [email or web address] #29000, [address] [facility], [place], [place], [id number], 4 10:22:59 albuterol sulfate HFA 90 mcg/actuati on aerosol inhaler 2023 024 [email or web address] #82496, [address] [facility] [address], [place], [place], [id number], 4 10:23:13 furosemide 20 mg tablet 2023 024 [facility] #55604, [address] [facility] [address], [place], [place], [id number], 4 10:46:07 atorvastati n 10 mg tablet 2023 024 [facility] #40977, [address] [facility] [address], [place], [place], [id number], 4 10:22:22 gabapentin 300 mg capsule [email or web address] [facility] #33680, [address] [facility] [address], [place], [id number], 4 16:01:49 ergocalcife rol (vitamin D2) 1,250 mcg (50,000 unit) capsule 2023 [facility] #56218, [address] [facility] [address], [place], [place], [id number], 4 10:22:22 omeprazole 40 mg capsule,del ayed release 2023 [facility] #97136, [address] [facility] [address], [place], [place], [id number], 4 10:22:24 famotidine 40 mg tablet 2023 024 [facility] #02229, [address], [place], [place], [id number], 4 10:22:21 docusate sodium 100 mg capsule 2023 024 [facility] #64057, [address] [facility] [address], [place], [place], [id number], 4 14:26:23 phentermine 37.5 mg tablet [email or web address] [facility] #79393, [address] [facility] [address], [place], [place], [id number], 4 10:13:02 diclofenac sodium 75 mg tablet,tarsha yed release 2023 024 [facility] #17928, [address] [facility] [address], [place], [place], [id number], 4 10:36:23 atorvastati n 10 mg tablet 02/2023 [facility] #92272, [address] [facility] [address], [place], [place], [id number], 4 10:32:43 phentermine 37.5 mg tablet 2023 [email or web address] [facility] #73500, [address], [place], [place], [id number], 4 10:13:02 ergocalcife rol (vitamin D2) 1,250 mcg (50,000 unit) capsule 2023 [facility] #99873, [address], [place], [place], [id number], 4 10:32:39 omeprazole 40 mg capsule,del ayed release 2023 [facility] #13458, [address] [facility] [address], [place], [place], [id number], 4 10:32:40 famotidine 40 mg tablet 2023 [facility] #73029, [address] [facility] [address], [place], [place], [id number], 4 10:32:42 Patient TargetsNo targets recorded. Patient Instructions Encounter Date Encounter Id Patient Instructions Last Modified By Organization Details Last Modified Time 10/24/2023 [id number] learning about obesity [email or web address] Not available 10/24/2023 10:32:32 03/12/2024 [id number] learning about obesity Not available 03/12/2024 10:22:13 [...] Not available 03/12/2024 09:52:22 Homebound Status : Required Home Health Services: Durable Medical Equipment needed: Billing Guidelines CPT code 24806- Transitional Care Management services with moderate medical decision complexity (kczu-bq-rdss visit within 14 days of discharge). CPT code 76517- Transitional Care Management services with high medical decision complexity (zxvm-yx-sibo visit within 7 days of discharge). Not available 03/12/2024 09:52:22 03/31/2024 [id number] learning about obesity [email or web address] Not available 03/31/2024 16:00:11 Thank you for [...] to discuss. Not available 03/31/2024 15:42:48 04/09/2024 [id number] Thank you for your visit to our [...] Not available 04/09/2024 11:46:58 Reason for Referral Be[employer] Leveling Machine Referral for Screening colonoscopy Please call patient to schedule an appointment. Referring Physician: Ang Patterson [facility], Encounter Date: 10/24/2023 [employer] Leveling Machine Referral for Intussusception of small intestine Patient has new onset intussusception , found on CT 01/21, not present on CT 12/12. Diverticulosis. Please call patient to schedule an appointment. Thank you. Referring Physician: Janneth Rogers [facility], Encounter Date: 01/29/2024 Multiple PEs, ex-smoker. Ple ase call patient to schedule an appointment. Thank you. Referring Physician: Agn Patterson [facility], Encounter Date: 03/12/2024 Pain Management Referral for Cervical spondylosis without myelopathy Please call patient to schedule an appointment. Thank you. Referring Physician: Ang Patterson [facility], Encounter Date: 03/31/2024 Vegetable Scullion Referral for Dy spnea on exertion Please call patient to schedule an appointment. Thank you. Referring Physician: Ang Patterson [facility], Encounter Date: 03/31/2024 Neurologist Referral for Kory mor B/l UE tremors for last 1-2 weeks. Please call patient to schedule an appointment. Thank you. Referring Physician: Ang Patterson [facility], Encounter Date: 04/09/2024 Results Created Date Observation Date Name Description Value Unit Range Abnormal Flag Note LastModifiedBy Organization Detail LastModifiedTime 10/01/19 24 10/02/2023 HELIC OBACT ER PYLOR I AG, EIA, STOOL helicobacter pylori Ag, EIA, stool SEE NOTE HELIC OBACT ER PYLOR I AG, EIA, STOOL Micro Numbe r: [id number] Test Statu s: Final Speci men [...] Range : Not Detec leti Not Available [facility] [id number], [place], [address], 10/02/2023 13:18:31 04/07/20 24 04/07/2024 COLOG UARD [...] of 10,00 0 indiv idual s at [place] risk for color ectal cance r who were scree harmeet with both Colog uard and colon oscop y. (Shama Guillermo. et al, N Engl J Med 2014; 370(1 4):12 86-12 97) The sharan l value (refe rence range ) for this assay is negat jamey. COLOG UARD RE-SC REENI NG RECOM MENDA TION: Perio dic color ectal cance r scree audra is an impor tant part of preve ntive healt hcare for asymp tomat ic indiv idual s at [place] ge risk for color ectal cance r. Follo wing a negat jamey Colog uard resul t, the Ameri can Cance r Socie ty and U.S. Multi -Soci ety Task Force scree audra guide lines recom mend a Colog uard re-sc tayler rea inter mariana of 3 years . Refer ences : Kolby allison Cance jaden Socie ty Guide line for Color ectal Cance r Scree audra: https ://anitha beth cer.o rg/ca ncer/ colon -rect al-ca ncer/ detec tion- diagn osis- stagi ng/ac s-rec ommen datio ns.ht ml.; Scott RENEE, Henna CASTILLO, Marely TRAORE, Color ectal Cance r Scree audra: Recom menda tions for Physi cians and Patie nts from the U.S. Multi -Soci ety Task Force on Color ectal Cance r Scree audra , Lisa grantnte rolog y 2017; 112:1 016-1 030. TEST DESCR IPTIO N: Rivers site algor ithmi c genesis sis of [...] years or older , who are at [facility] for color ectal cance r ([facility]) . Colog uard has been appro rohan for use by the U.S. FDA. The perfo rmanc e of Colog uard was estab lishe d in a cross secti onal study of [facility] adult s aged 50-84 . Colog uard perfo rmanc e in patie nts ages 45 to 49 years was estim ated by sub-g roup genesis sis of near- age group s. Colon oscop ies perfo rmed for a posit jamey resul t may find as the most clini ayana signi fidelia guillermo lesio n: color ectal cance r [4.0% [...] study of 0 [facility] risk for color ectal cance r [...] d can be acces sed at the follo wing locat ion: www.e xactl abs.c om/re deborah . Addit ional descr iptio n of the Colog uard test proce ss, warni ngs and preca ution s can be found at www.c sang thomasd.c om. Not Available [employer] (Cologuard Orders Only) [address], [place], [address], 04/11/2024 17:19:08 12/13/19 24 12/13/2023 CT, abdom en + pelvi s, w/ contr ast No observ ation record ed. [facility] [address], [place], [address], 12/23/2023 09:42:22 12/30/19 24 12/30/2023 CT, cervi bimal spine , w/o contr ast No observ ation record ed. [email or web address] [address], [place], [address], 12/30/2023 14:14:10 12/30/19 24 12/30/2023 XR, lumbo sacra l spine , 2 or 3 view No observ ation record ed. [address], [place], [address], 12/30/2023 14:14:21 01/22/20 24 01/22/2024 XR, chest No observ ation record ed. [email or web address] [facility], [place], [address], 01/22/2024 11:16:05 01/22/20 24 01/22/2024 LDCT, chest , for lung cance r scree audra No observ ation record ed. [address] [address], [place], [address], 01/22/2024 17:06:54 01/22/20 24 01/22/2024 CT, angio gram, chest , w/ contr ast No observ ation record ed. [address] [address], [place], [address], 03/12/2024 11:08:31 02/24/20 24 02/24/2024 US, doppl er echoc ardio gram No observ ation record ed. [address] [address], [place], [address], 03/12/2024 10:02:16 03/25/20 24 03/25/2024 XR, chest , 2 view No observ ation record ed. [address] [address], [place], [address], 03/31/2024 15:49:25 03/25/20 24 03/25/2024 CT, angio gram, chest , w/ contr ast No observ ation record ed. [address] [address], [place], [address], 03/31/2024 15:49:25 04/02/20 24 04/02/2024 CT, brain , w/o contr ast No observ ation record ed. [address], [place], [address], 04/09/2024 11:57:47 04/02/20 24 04/02/2024 XR, chest No observ ation record ed. [address], [place], [address], 04/09/2024 11:57:47 04/29/2004/08/2024 imagi ng/di agnos tic resul t No observ ation record ed. [address], [place], [address], 04/29/2024 09:51:53 Result Notes None recorded. Problems Name Problem SNOMED Code Status Onset Date Resolution Date Notes Provider Name and Address Organization Details Recorded Time Depressive disorder 54144327 Active 2022 Ang Patterson MD [address], [place], [address], [employer] 15:00:33 Anxiety disorder 425189867 Active 2022 Ang Patterson MD [address], [place], [address], [employer] 15:00:39 Posttraumat ic stress disorder 43664498 Active 2022 Ang Patterson MD [address], [place], [address], [employer] 15:00:45 Obesity 843500619 Active 2022 Ang Patterson MD [address], [place], [address], [employer] 15:01:02 Chronic neck pain 0682774291909 Active 2022 Ang Patterson MD [address], [place], [address], [employer] 15:03:12 Chronic low back pain 449197978 Active 2022 Ang Patterson MD [address], [place], [address], [employer] 15:03:20 Cervical spondylosis without myelopathy 249522467 Active 2022 Ang Patterson MD [address], [place], [address], [employer] 15:17:42 Ex-smoker 2953224 Active 2022 Ang Patterson MD [address], [place], [address], [employer] 15:17:55 Degeneratio n of cervical interverteb ral disc 15737077 Active 2022 Ang Patterson MD [address], [address], [place], [address], [employer] 14:38:13 Otalgia of right ear 2840467029 Active 2022 Ang Patterson MD [address], [address], [place], [address], [employer] 09:56:32 Chronic idiopathic constipatio n 46613388 Active 2022 Ang Patterson MD [address], [place], [address], [employer] 09:58:26 Gastroesoph ageal reflux disease without esophagitis 859751906 Active 2022 Ang Patterson MD [address], [place], [address], [employer] 3 09:59:58 Xerostomia 33271513 Active 2022 Ang Patterson MD [address], [place], [address], [place] [facility] 3 10:05:03 Anemia 260347672 Active 2022 Ang Patterson MD [address], [place], [address], [place] [facility] 3 14:59:07 Vitamin D deficiency 75828322 Active 2023 Ang Patterson MD [address], [place], [address], [place] [facility] 4 10:31:01 Hyperlipide ana 66611821 Active 2023 Ang Patterson MD [address], [place], [address], [place] [facility] 4 10:31:30 Pain of bilateral hands 8782964440753 9109 Active 2023 Ang Patterson MD [address], [place], [address], [place] [facility] 4 10:34:43 Intussuscep tion of small intestine 226594227 Active 2023 SHIRA Mckeon [address], [place], [address], [facility] 4 14:12:52 Pulmonary embolism 93255213 Active 2023 Ang Patterson MD [address], [place], [address], [place] [facility] 4 10:05:37 Pulmonary embolism with pulmonary infarction 0319014538807 Active 2023 Ang Patterson MD [address], [place], [address], [place] [facility] 4 10:13:28 Dyspnea on exertion 71129970 Active 2023 Ang Patterson MD [address], [place], [address], [facility] Anna Lozabai [facility] 4 15:57:53 Tremor 17556308 Active 2023 Ang Patterson MD [address], [place], [address], [facility] Anna Lozabai [facility] 4 11:59:25 Problem Notes None recorded. Procedures Surgical History Date Name Laterality Status Provider Name and Address Organization Details Recorded Time 03/31/2024 Transition al_Care_Ma nagement completed [facility] Anna Lozabai [facility] 03/31/2024 15:42:49 03/12/2024 Transition al_Care_Ma nagement completed Alexx Resnediz [facility] Anna Lozabai [facility] 03/12/2024 09:52:22 Imaging Results None recorded. Procedure Notes None recorded. Medical Equipment None [...] Available omeprazole 40 mg capsule,del ayed release Take by oral route for 30 days. active Not Available Not Available No t [...] No t Available Vitals Date Recorded Body mass index (BMI) Body weight Provider Name and Address Organization Details Last Updated DateTime 10/24/2023 32.5 kg/m2 43756.86 g Ang Patterson MD [address] [place] [address], [address], [facility] [employer] 10/24/2023 10:40:55 Date Recorded Body height Body temperature Heart rate Respiratory rate Oxygen saturation Oxygen saturation in Arterial blood by Pulse oximetry Systolic And Diastolic Provider Name and Address Organization Details Last Updated DateTime 4 165.1 cm 98 [degF] 98 /min 20 /min 99 % 99 % 132/72 mm[Hg] Alexx Resendiz [facility] [employer] 4 10:05:54 Date Recorded Body height Body temperature Heart rate Oxygen saturation Oxygen saturation in Arterial blood by Pulse oximetry Body mass index (BMI) Body weight Systolic And Diastolic Provider Name and Address Organization Details Last Updated DateTime 4 165.1 cm 98.7 [degF] 89 /min 98 % 98 % 33 kg/m2 49734.4 4 g 173/102 mm[Hg] Tana Brown MA [facility] [employer] 4 14:07:48 Date Recorded Heart rate Respiratory rate Oxygen saturation Oxygen saturation in Arterial blood by Pulse oximetry Inhaled oxygen flow rate Systolic And Diastolic Provider Name and Address Organization Details Last Updated DateTime 4 100 /min 24 /min 90 % 90 % 2 L/min 146/88 mm[Hg] Ang Patterson MD [address] [employer], [place], [address], [facility] [employer] [facility] 4 10:41:10 Date Recorded Body height Body mass index (BMI) Body weight Body temperature Provider Name and Address Organization Details Last Updated DateTime 03/12/2024 165.1 cm 30.5 kg/m2 90249.75 g 98.2 [degF] Alexx Resendiz [facility] [employer] [facility] 03/12/2024 09:56:29 Date Recorded Heart rate Respiratory rate Oxygen saturation Oxygen saturation in Arterial blood by Pulse oximetry Inhaled oxygen flow rate Provider Name and Address Organization Details Last Updated DateTime 4 110 /min 22 /min 94 % 94 % 2 L/min Ang Patterson MD [address] [employer], [place], [address], [facility] [employer] [facility] 4 16:08:35 Date Recorded Body height Body mass index (BMI) Body weight Body temperature Systolic And Diastolic Provider Name and Address Organization Details Last Updated DateTime 03/31/2024 165.1 cm 32.1 kg/m2 60023.3 8 g 98.1 [degF] 144/90 mm[Hg] Alexx Resendiz [facility] [employer] [facility] 4 15:47:52 Date Recorded Heart rate Oxygen saturation Oxygen saturation in Arterial blood by Pulse oximetry Provider Name and Address Organization Details Last Updated DateTime 04/09/2024 96 /min 96 % 96 % Ang Patterson MD [address] [employer], [place], [address], [facility] [employer] [facility] 04/09/2024 12:43:19 Date Recorded Body height Body mass index (BMI) Body weight Body temperature Respiratory rate Systolic And Diastolic Provider Name and Address Organization Details Last Updated DateTime 4 165.1 cm 31.8 kg/m2 29818.4 9 g 97.9 [degF] 16 /min 146/86 mm[Hg] Alexx [employer] 11:51:44 Social History Question Answer Notes LastModified by Organizat ion Details LastModified Time Tobacco Smoking Status Former Smoker Ang Patterson MD [address] [facility], [facility] [address], [place], [address], [facility] [place] 04/23/2023 15:18:12 Do You Have An Advance [...] Was Ill? No Information not available 04/23/2023 What Is The Highest Grade Or Level Of School You Have Completed Or The Highest Degree You Have Received? [id number] Information not available 04/23/2023 Have There Been [...] Do You Have A Medical Power Of Compressor Service Technician? No Information not available 04/23/2023 How Many [...] Yes Information not available 04/23/2023 Do You Use Sunscreen Routinely? Yes Information not available 04/23/2023 Have You Recently Traveled Abroad? No Information not available 04/23/2023 Are You Currently In School? No Information not available 04/23/2023 Sex: Female Functional Status Question Answer Note LastModified by Organization D etails LastModified Time Do you or have you ever used any other forms of tobacco or nicotine? No Information not available 04/23/2023 Are you currently employed? Yes Information not available 04/23/2023 Mental Status Question Answer Note LastModified by Organization D etails LastModified Time Do you feel stressed (tense, restless, nervous, or anxious, or unable to sleep at night)? [id number] Information not available 04/23/2023 Family History Nothing Reported Notes:Parents have HTN, [...] HAVE YOU BEEN HOSPITALIZED OR SEEN IN [facility] IN THE PAST YEAR ? N ATHEROSCLEROSIS [...] SNOMED-CT Code Diagnosis ICD10 Code Diagnosis Note [id number] Ang Patterson MD [facility] [address] [address] 04/23/2023 14:37:09 04/23/2023 15:24:12 Depressive disorder 53696099 F32.A Anxiety disorder 6978764 06 F41.9 Posttrauma tic stress disorder 41376337 F43.10 Obesity 267785180 E66.9 Ex-smoker 8940888 Z87.89 1 Chronic neck pain 653021 2356 107 M54.2 Chronic low back pain 27 9153127 M54.50 Cervical s pondylosis without myelopathy 478984391 M47.378 [id number] Ang Patterson MD [address] [address] 05/14/2023 17:26:14 05/14/2023 17:49:44 Chronic neck pain 0529924910 107 M54.2 Chronic low back pain 27 6459211 M54.50 Cervical s pondylosis without myelopathy 657159433 M47.812 Depressive disorder 3548 9007 F32.A Anxiety disorder 6084081 06 F41.9 Posttrauma tic stress disorder 24678272 F43.10 Obesity 609205611 E66.9 Ex-smoker 8601891 Z87.89 1 Degenerati on of cervical intervertebral disc 82909141 M50.30 [id number] Ang Patterson MD [address] [address] 06/04/2023 09:43:47 06/04/2023 10:27:29 Adult health examination 691509080 Z00.00 Chronic neck pain 829057 0066 107 M54.2 Chronic low back pain 27 0530518 M54.50 Obesity 469701277 E66.9 Ex-smoker 6487145 Z87.89 1 Otalgia of right ear 753 3323503 H92.01 Screening colonoscopy 44 1545120 Z12.11 Chronic id iopathic constipation 61737398 K59.04 Gastroesop hageal reflux disease without esophagitis 953775726 K21.9 Screening mammography 24 248782 Z12.31 Cervical s pondylosis without myelopathy 459109038 M47.812 Xerostomia 26906112 R68. 2 [id number] Ang Patterson MD [address] [address] 06/25/2023 14:39:36 06/25/2023 15:24:08 Chronic neck pain 4513391185 107 M54.2 Chronic low back pain 27 6066465 M54.50 Obesity 744415298 E66.9 Ex-smoker 5261407 Z87.89 1 Chronic id iopathic constipation 83299355 K59.04 Gastroesop hageal reflux disease without esophagitis 793803461 K21.9 Cervical s pondylosis without myelopathy 337629452 M47.812 Xerostomia 57889878 R68. 2 Anemia 343192336 D64.9 [id number] Ang Patterson MD [address] [address] 07/18/2023 15:27:03 07/18/2023 15:47:18 Chronic neck pain 3016798220 107 M54.2 Chronic low back pain 27 7028533 M54.50 Obesity 472970715 E66.9 [id number] Ang Patterson MD [address] [address] 08/22/2023 10:25:27 08/22/2023 10:43:48 Obesity 908145583 E66.9 Gastroesop hageal reflux disease without esophagitis 954009954 K21.9 Depressive disorder 3548 9007 F32.A [id number] Ang Patterson MD [address] [address] 10/24/2023 09:54:39 10/24/2023 10:45:37 Gastroesophageal reflux disease without esophagitis 099599465 K21.9 Obesity 695157427 E66.9 Vitamin D deficiency 347 05519 E55.9 Hyperlipidemia 09472962 E78.5 Pain of bi lateral hands 9918827518 4503113 M79.641 Screening colonoscopy 44 6394177 Z12.11 [id number] Ang Patterson MD [address] [address] 01/29/2024 13:56:02 01/29/2024 14:34:01 Intussusception of small intestine 655558721 K56.1 Chronic id iopathic constipation 20735734 K59.04 Obesity 094038576 E66.9 [id number] Ang Patterson MD [address] [address] 03/12/2024 09:48:48 03/12/2024 11:12:17 Vitamin D deficiency 84630181 E55.9 Hyperlipidemia 92757807 E78.5 Gastroesop hageal reflux disease without esophagitis 496502818 K21.9 Obesity 929779482 E66.9 Pain of bi lateral hands 9682422550 8904976 M79.641 Hospital i npatient stay within past 30 days 8943100665 106 Z76.89 Transition of care 08243 21393 105 Z75.8 Pulmonary embolism 75929 003 I26.99 Cervical s pondylosis without myelopathy 455223056 M47.812 Pulmonary embolism with pulmonary infarction 4363329100 102 I26.99 [id number] Ang Patterson MD [address] [address] 03/31/2024 15:36:12 03/31/2024 16:29:17 Transition of care 3818228615 105 Z75.8 Pulmonary embolism 03421 003 I26.99 Vitamin D deficiency 347 75559 E55.9 Hyperlipidemia 26797881 E78.5 Gastroesop hageal reflux disease without esophagitis 928861836 K21.9 Obesity 753243320 E66.9 Pain of bi lateral hands 6889861435 8281324 M79.641 Cervical s pondylosis without myelopathy 924336573 M47.812 Pulmonary embolism with pulmonary infarction 6216167737 102 I26.99 Dyspnea on exertion 6084 5006 R06.09 Screening for malignant neoplasm of colon 912993071 Z12.11 [id number] Ang Patterson MD [address] [address] 04/09/2024 11:38:36 04/09/2024 14:39:32 Transition of care 6040303121 105 Z75.8 Pulmonary embolism 26456 003 I26.99 Vitamin D deficiency 347 45035 E55.9 Hyperlipidemia 60453394 E78.5 Gastroesop hageal reflux disease without esophagitis 277042358 K21.9 Obesity 159015014 E66.9 Pain of bi lateral hands 2061359471 3850147 M79.641 Cervical s pondylosis without myelopathy 428648679 M47.812 Pulmonary embolism with pulmonary infarction 9222215777 102 I26.99 Dyspnea on exertion 6084 5006 R06.09 Tremor 70099132 R25.1 Hospital i npatient stay within past 30 days 6808173833 106 Z76.89 Health Concerns Section Related Observation [...] Shallen[place] 03/12/2024 1 *SELF PAY* Ka rla Camdenenberger 03/31/2024 1 [place] Anat Martin [id number] Anat Martin 04/09/2024 1 [place] [facility] [place] Anat Martin [id number] Anat Martin Notes Date Note Type Note Provider Name [...] PTSD and is f/u with Psych at [facility] for it. Pt is on meds by them and is doing overall well with it. Denies any mood swings/SI/HI. Pt was f/u with Endo at [facility] and is on chronic Prednisone from them for last couple years. Ang Patterson MD [address] [place] [address], [place] [address], [place], [address], [facility] [employer] [facility] 10/24/2023 10:42:51 01/29/2024 text/html Anat alvarez is [...] for medicaid and speak with case managment. Janneth Rogers, COMMAND AND CONTROL [address] [facility], [facility] [address], [place], [address], [facility] [employer] [facility] 01/29/2024 14:33:48 03/12/2024 text/html Hospital fuv:Pt has some insurance issues going on. Pt was admitted to [facility] on 02/22/24 due to not feeling well. Pt was found to have Pneumonia, PE, pulmonary infarction, pulmonary edema. Pt has finished her antibiotics and she is on Eliquis and Como. Pt is needing refill on them. Pt will be seeing Pulmo at [place] in few weeks. Pt has home O2 [...] PTSD and is f/u with Psych at [facility] for it. Pt is on meds by them and is doing overall well with it. Denies any mood swings/SI/HI. Pt was f/u with Endo at [facility] and is on chronic Prednisone from them for last couple years. Ang Patterson MD [address] [place] [address], [facility] [address], [place], [address], [place] [facility] [employer] 03/12/2024 11:10:25 03/31/2024 text/html Hospital fuv: Pt was seen in ED again on 03/25/24 due to SOB and chest pain and got work up done and was found to have Pneumonia. So pt was d/c on Z-jeanmarie and hydrocodone from ED. Pt has finished Z-jeanmarie and is feeling much better now. No fever/chills/n/v/d/sp utum. Pt will be seeing Pulmo at [place] on 04/08/24. Pt has home O2 set up done already and she has with her. Pt was admitted to [facility] on 02/22/24 due to not feeling well. Pt was found to have Pneumonia, PE, pulmonary infarction, pulmonary edema. Pt has finished her antibiotics and she is on Eliquis and Como. Pt is needing refill on them. Pt [...] PTSD and is f/u with Psych at [facility] for it. Pt is on meds by them and is doing overall well with it. Denies any mood swings/SI/HI. Pt was f/u with Endo at [facility] and is on chronic Prednisone from them for last couple years. Ang Patterson MD [address] [facility], [address], [place], [address], [facility] [employer] 03/31/2024 16:13:31 04/09/2024 text/html Hospital fuv: Pt [...] body pain and she is asking for Como. Pt is not taking her Gabapentin. Pt was seen couple weeks ago and was given Como by me # 40 on 03/21/24 and [...] week. Pt is f/u with Pulmo at [place] for her Pneumonia, PE and chronic hypoxia and is on meds by them. Pt has home O2 set up for her home. Pt was admitted to [facility] on 02/22/24 due to not feeling well. Pt was found to have Pneumonia, PE, pulmonary infarction, pulmonary edema. Pt has finished her antibiotics and she is on Eliquis and Como. Pt is needing refill on them. Pt [...] PTSD and is f/u with Psych at [facility] for it. Pt is on meds by them and is doing overall well with it. Denies any mood swings/SI/HI. Pt was f/u with Endo at [facility] and is on chronic Prednisone from them for last couple years. Ang Patterson MD [address] [facility], [facility] [address], [place], [address], [place] [facility] [employer] 04/09/2024 14:38:39 OBGyn Episode No OBEpisode recorded.
--- OUTSIDE RECORDS SUMMARY | 2025-01-24 08:09 | XMS_ITS | CONTINUITY OF CARE DOCUMENT ---
Author Name ramakrishna durbin Address Unknown Organization [facility] Address [address] [place] [address] [address] [place] [address] Phone [phone] Care Team Providers Care Furnace Helper Name Role Phone Iggy ANGELES, Shavonne Miramontes Unavailable CHARLOTTE DOWD MD Unavailable [phone] CHARLOTTE DOWD MD Unavailable [phone] PROBLEMS Condition Status Date Provider Notes Cardiology examination active Shavonne mensah MD Pulmonary embolism active Shavonne Parkinson MD Tremor active Shavonne Parkinson MD ENCOUNTERS Date Type Provider Location Encounter Diag nosis - In-person encounter Office Visit Shavonne Parkinson MD [place] [facility] Cardiology examinationPulmonary embolismTremor VITAL SIGNS Date [...] Policy type / Coverage type Jennifer red libertarian [place] MEDICAID (2) Medicaid [id number] ADVANCE DIRECTIVES Name Date DISCUSSED - NO [...] is normal. Shavonne Parkinson MD Cardiology:03/25/24 1644 [facility] MPRESSION: 1 . Pulmonary embolism with [...]
--- OUTSIDE RECORDS SUMMARY | 2025-01-24 08:09 | XMS_ITS | Clinical Summary ---
Author Organization [facility] [place] [facility] Address [address] [place] [address] Care Team Providers Care Cyber Forensics Analyst Name Role Phone Kendrick Chacon MD Unavailable [...] total) by mouth daily 04/13/20 20 Active terbinafine (LamISIL) 1 % cream RENNY EXT AA BID 06/09/20 20 Active tolterodine LA (DETROL LA) 4 mg 24 hr capsule Take by mouth daily 09/05/19 21 Active clonazePAM (KlonoPIN) 0.5 mg disintegrating tablet Take 0.5 mg by mouth nightly as needed for anxiety or seizures Active predniSONE (DELTASONE) 5 mg tabletIndications :low acth Take 5 mg by mouth daily Active gabapentin (NEURONTIN) 100 mg capsule Take 2 capsules (200 mg total) by mouth every 8 (eight) hours 180 capsule 05/18/20 21 Active acetaminophen (TYLENOL) 500 mg tablet Acetaminophen Extra Strength 500 mg tablet 04/11/20 20 Active atorvastatin (LIPITOR) 10 mg tablet Take 1 tablet (10 mg total) by mouth nightly at bedtime Active buPROPion XL (WELLBUTRIN XL) 150 mg [...] (20 mg total) by mouth daily Active ipratropium-albut Killian (DUO-NEB) 0.5-2.5 mg/3 mL nebulizer solution USE 3 ML VIA NEBULIZER EVERY 6 TO 8 HOURS NEEDED Active polyethylene glycol (MIRALAX) 17 gram/dose bulk powder DISSOLVE 17 GRAMS IN LIQUID AND DRINK BY MOUTH EVERY DAY DIRECTED Active umeclidinium-ida nteroL (ANORO ELLIPTA) 62.5-25 mcg/actuation blister with device 1 puff daily Active hydroxychloroquin e (PLAQUENIL) 200 mg tabletIndications :Arthralgia, unspecified joint Take 1 tablet (200 mg total) by mouth 2 (two) times a day 60 tablet 5 07/22/20 24 Active Symbicort 160-4.5 mcg/actuation inhaler 12/22/19 25 Active carBAMazepine (TEGretol) 200 mg tablet 12/25/19 25 Active Flonase Allergy Relief 50 mcg/actuation nasal spray 01/09/20 25 Active hyoscyamine (OSCIMIN) 0.125 mg 12/10/19 25 Active Linzess 72 mcg capsule 12/29/19 25 Active methocarbamoL (ROBAXIN) 500 mg tablet 09/10/19 25 Active Protonix 40 mg EC tablet 01/14/20 25 Active prochlorperazine (COMPAZINE) 5 mg tablet 01/20/20 25 Active omeprazole (PriLOSEC) 20 mg capsule Take 20 mg by mouth daily 025 Discontin ued(Patie nt Reported) fluticasone propion-salmetero L (AIRDUO RESPICLICK) 55-14 mcg/actuation inhaler 06/09/20 025 Discontin ued(Patie nt Reported) cyclobenzaprine (FLEXERIL) 10 mg tablet TAKE 1 TABLET BY MOUTH AT BEDTIME NEEDED 30 tablet 05/03/20 025 Discontin ued(Patie nt Reported) Eliquis 5 mg tablet Take by oral route for 30 days. 03/02/20 24 025 Discontin ued(Patie nt Reported) baclofen (LIORESAL) 20 mg tablet Take 1 tablet (20 mg total) by mouth every 8 (eight) hours as needed 025 Discontin ued(Patie nt Reported) Active Problems Problem Noted Date Diagnosed Date Adrenal insufficiency 04/19/2021 Prior with demise 01/30/2017 Encounter for anatomic survey 01/29/2017 Encounters Date Type Department Care Team Description 01/20/2025 10:00 AM CDT Office Visit [facility] Rheumatology [address] [facility] [address]th [place] [address] [place] [address] Jessie Sherwood MD Rheumatoid arthritis 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 factor (HCC) (Primary Dx); Encounter for long-term (current) use of high-risk medication from Last 3 Months Surgical History Surgery [...] Smoking Tobacco: Former Cigarettes Smokeless Tobacco: Never Tobacco Cessation:Counseling Given: Not Answered Alcohol Use Standard Drinks/Week Comments Never 0 [...] 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 on file Not on file Obstetrics History Last Filed Vital Signs Vital Sign Reading Time Taken Comments Blood Pressure 134/80 01/20/2025 9:57 AM CDT Pulse 76 01/20/2025 9:57 AM CDT Temperature 36.9 C (98.4 F) 01/20/2025 9:57 AM CDT Respiratory Rate 18 05/10/2021 3:55 PM CDT Oxygen Saturation 97% 05/10/2021 3:55 PM CDT Inhaled Oxygen Concentration - - Weight 79.8 kg (176 lb) 01/20/2025 9:57 AM CDT Height 165.1 cm (5' 5 ) 01/20/2025 9:57 AM CDT Body Mass Index 29.29 01/20/2025 9:57 AM CDT Plan of Treatment Health Maintenance Due Date Last Done Comments Breast Cancer Screening-Mammogram 1976 Cervical Cancer Screening 1976 Colon Cancer Screening-Colonoscopy 1976 Depression Screening 1976 Regular Well Visit/Exam 18-64 1994 Pneumococcal vaccine <65 (1 of 2 - PCV) 1995 Zoster Vaccine (1 of 2) 1995 Influenza Vaccine (Season Ended) 2025 DTaP/Tdap/Td Vaccine (3 - Td or Tdap) 02/22/2027 02/22/2017, 07/18/2015, 11/12/2005 Hepatitis B Screening Completed 05/27/2006 , 12/20/2005, 11/12/2005 Hepatitis C Screening Completed 07/15/2024 Procedures Procedure Name Priority Date/Time Associated Diagnosis Comments HEPATITIS C ANTIBODY Routine 07/15/2024 12:49 PM ACCORDION MAKER Effusion of joint, unspecified location Arthralgia, unspecified joint from Last 3 Months or Most Recently Relevant to Health Maintenance Results * Hepatitis C antibody Blood (07/15/2024 12:49 PM ACCORDION MAKER) Hep C Ab Nonreactive Nonreactive Comment:Antibodies to HCV no t detected. Does NOT exclude the possibility of recent exposure to HCV. Current interpretive data was last revised on 22 Blood 07/15/2024 12:4 9 PM ACCORDION MAKER 07/15/2024 1:25 PM ACCORDION MAKER us Jessie Sherwood MD LAB MICROBIOLOGY - GENERAL ORDERABLES Final Result [facility] One [facility] Department [place] [address] from Last 3 Months or Most Recently Relevant to Health Maintenance [place] [address] [place] [address] [facility] Care Teams Cyber Forensics Analyst Relationship Specialty Start Date End Date Keven Gonzalez DO [address] [place] [address] PCP - General Family Medicine 05/29/24 Kendrick Chacon MD Emergency Medicine 04/27/20 Edy Yadav MD [address] [facility] [address] Consulting Physician Pain Management 04/28/21
--- OUTSIDE RECORDS SUMMARY | 2025-01-24 08:09 | XMS_ITS | Clinical Summary ---
Author Organization [facility] [employer] Address [address] [place] [address] Care Team Providers Care Letter Carrier Name Role Phone Kendrick Chacon MD Primary Care Provider [phone] Source Comments [facility] [employer],non-owned Affiliates and Associated Physician Practices is amultiple site organization consisting of ambulatory clinics and hospital sitesin [place], [place], [place] and [place]. This disclosure is being madepursuant to the Care Everywhere program and may not contain all information available regarding this patient. 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 Gender Identity Not on file Sexual Orientation [...] patient's age to complete this topic Insurance [facility] SELF PAY NO INSURANCE Member Subscriber Plan / Payer (Ef fective for All Dates) Name:Anat Phelan Amanda Relation to Subscriber:Self Name:Anat Phelan Payer ID:Not on file Group ID:Not on file Type:Self Pay Address: [place], [place] Advance Directives Documents on File Type Date Recorded 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
--- OUTSIDE RECORDS SUMMARY | 2025-01-24 08:09 | XMS_ITS | Referral Summary ---
Author Organization [facility] [place] [facility] Address [address] [place] [address] Care Team Providers Care Applications Engineering Manager Name Role Phone Kendrick Chacon MD Unavailable Edy Yadav MD Unavailable Keven Gonzalez DO Primary Care Provider [phone] Encounters Date Type Department Care Team Description 01/20/2025 10:00 AM CDT Office Visit [facility] Rheumatology [address] [facility] 5th [place] [address] [place] [address] Jessie Sherwood MD Rheumatoid arthritis 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 factor (HCC) (Primary Dx); Encounter for long-term (current) use of high-risk medication from Last 3 Months Allergies Active Allergy [...] L (AIRDUO RESPICLICK) 55-14 mcg/actuation inhaler 06/09/20 20 025 Discontin ued(Patie nt Reported) cyclobenzaprine (FLEXERIL) [...] 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 Does NOT exclude the possibility of recent exposure to HCV. Current interpretive data was last revised on 22 Blood 07/15/2024 12:4 9 PM BAG ADJUSTER 07/15/2024 1:25 PM BAG ADJUSTER us Jessie Sherwood MD LAB MICROBIOLOGY - GENERAL ORDERABLES Final Result [facility] One [facility] Department [place] [address] from Last 3 Months or Most Recently Relevant to Health Maintenance Insurance [facility] Care Teams Applications Engineering Manager Relationship Specialty Start Date End Date Keven Gonzalez DO [address] [place] [address] PCP - General Family Medicine 05/29/24 Kendrick Chacon MD Emergency Medicine 04/27/20 Edy Yadav MD [address] [facility] [place] [address] Consulting Physician Pain Management 04/28/21
== END 2025-01-24 08:06 | disposition home or self-care (01) ==
PROVIDERS: PCP Family Medicine; Visit Provider Family Medicine
DX: M47.896 Other spondylosis, lumbar region (principal); M47.897 Other spondylosis, lumbosacral region; M54.40 Lumbago with sciatica, unspecified side; G89.29 Other chronic pain
CPT/HCPCS: 72148

== ENCOUNTER 2025-02-02 09:28 | Outpatient (CLI) | payer OTHER, SELFPAY ==
--- NOTE | 2025-02-02 11:00 | NEURO_ITS ---
Impression: # Complains of numbness and pain in hands and feet. ? # Normal motor and sensory Nerve Conduction Study in upper and lower extremities. ? # Normal needle/EMG exam. ? # Clinical correlation recommended. Nerve Conduction Studies Anti Sensory Summary Table ?Stim Site NR Peak (ms) P-T Amp (?V) Site1 Site2 Delta-P (ms) Dist (cm) Manuel (m/s) Left Median Anti Sensory (2-3nd Digit) Wrist ? 3.6 38.9 Wrist 2-3nd Digit 3.6 14.0 39 Wrist ? 3.3 46.8 Wrist 2-3nd Digit 3.6 14.0 39 Right Median Anti Sensory (2-3nd Digit) Wrist ? 3.1 44.2 Wrist 2-3nd Digit 3.1 14.0 45 Wrist ? 3.4 19.9 Wrist 2-3nd Digit 3.1 14.0 45 Left Radial Anti Sensory (Base 1st Digit) Wrist ? 2.1 21.2 Wrist Base 1st Digit 2.1 0.0 Right Radial Anti Sensory (Base 1st Digit) Wrist ? 2.4 19.0 Wrist Base 1st Digit 2.4 0.0 Left Sup Fibular Anti Sensory (Ant Lat Mall) 14 cm ? 3.4 10.9 14 cm Ant Lat Mall 3.4 16.0 47 Right Sup Fibular Anti Sensory (Ant Lat Mall) 14 cm ? 3.3 13.5 14 cm Ant Lat Mall 3.3 16.0 48 Left Sural Anti Sensory (Lat Mall) Calf ? 3.3 9.4 Calf Lat Mall 3.3 16.0 48 Right Sural Anti Sensory (Lat Mall) Calf ? 3.8 7.5 Calf Lat Mall 3.8 16.0 42 Left Ulnar Anti Sensory (5th Digit) Wrist ? 2.7 25.3 Wrist 5th Digit 2.7 14.0 52 Right Ulnar Anti Sensory (5th Digit) Wrist ? 2.7 21.4 Wrist 5th Digit 2.7 14.0 52 Motor Summary Table ?Stim Site NR Onset (ms) O-P Amp (mV) Site1 Site2 Delta-0 (ms) Dist (cm) Manuel (m/s) Left Median Motor (Abd Poll Brev) Wrist ? 3.4 4.8 Elbow Wrist 5.4 29.0 54 Elbow ? 8.8 2.8 Right Median Motor (Abd Poll Brev) Wrist ? 3.4 3.4 Elbow Wrist 6.1 30.0 49 Elbow ? 9.5 4.6 Left Peroneal Motor (Vastus Med) Ankle ? 3.9 2.4 Popit Ankle 8.4 39.0 46 Popit ? 12.3 2.7 Right Peroneal Motor (Vastus Med) Ankle ? 3.8 3.3 Popit Ankle 7.5 36.0 48 Popit ? 11.3 2.8 Left Tibial Motor (Abd Rosado Brev) Ankle ? 4.2 4.9 Knee Ankle 8.3 40.0 48 Knee ? 12.5 4.4 Right Tibial Motor (Abd Rosado Brev) Ankle ? 4.2 5.3 Knee Ankle 7.8 39.0 50 Knee ? 12.0 4.4 Left Ulnar Motor (Abd Dig Minimi) Wrist ? 2.6 6.1 A Elbow Wrist 4.8 30.0 62 A Elbow ? 7.4 5.3 Right Ulnar Motor (Abd Dig Minimi) Wrist ? 2.6 7.9 A Elbow Wrist 5.1 31.0 61 A Elbow ? 7.7 7.0 B Elbow Wrist 3.4 21.0 62 B Elbow ? 6.0 6.9 F Wave Studies ?NR F-Lat (ms) L-R F-Lat (ms) Left Median (Mrkrs) (Abd Poll Brev) ? 28.67 0.66 Right Median (Mrkrs) (Abd Poll Brev) ? 28.01 0.66 Left Peroneal (Mrkrs) (EDB) ? 48.73 1.09 Right Peroneal (Mrkrs) (EDB) ? 49.81 1.09 Left Tibial (Mrkrs) (Abd Hallucis) ? 50.54 0.07 Right Tibial (Mrkrs) (Abd Hallucis) ? 50.48 0.07 Left Ulnar (Mrkrs) (Abd Dig Min) ? 27.11 0.51 Right Ulnar (Mrkrs) (Abd Dig Min) ? 27.62 0.51 EMG ?Side Muscle Nerve Root Ins Act Fibs Amp Dur Recrt Comment Right 1stDorInt Ulnar C8-T1 Nml Nml Nml Nml Nml Right Ext Indicis Radial (Post Int) C7-8 Nml Nml Nml Nml Nml Right Ext Digitorum Radial (Post Int) C7-8 Nml Nml Nml Nml Nml Right BrachioRad Radial C5-6 Nml Nml Nml Nml Nml Right PronatorTeres Median C6-7 Nml Nml Nml Nml Nml Right Abd Poll Brev Median C8-T1 Nml Nml Nml Nml Nml Right ABD Dig Min Ulnar C8-T1 Nml Nml Nml Nml Nml Right FlexPolLong Median (Ant Int) C7-8 Nml Nml Nml Nml Nml Right Abd Poll Long Radial (Post Int) C7-8 Nml Nml Nml Nml Nml Right AntTibialis Dp Br Fibular L4-5 Nml Nml Nml Nml Nml Right Gastroc Tibial S1-2 Nml Nml Nml Nml Nml Right Fibularis Long Sup Br Fibular L5-S1 Nml Nml Nml Nml Nml Right Flex Dig Long Tibial L5-S2 Nml Nml Nml Nml Nml Right Ext Dig Brev Dp Br Fibular L5, S1 Nml Nml Nml Nml Nml Right QuadratusFem QuadFemoris L4-5, S1 Nml Nml Nml Nml Nml Left AntTibialis Dp Br Fibular L4-5 Nml Nml Nml Nml Nml Left Gastroc Tibial S1-2 Nml Nml Nml Nml Nml Left Fibularis Long Sup Br Fibular L5-S1 Nml Nml Nml Nml Nml Left Flex Dig Long Tibial L5-S2 Nml Nml Nml Nml Nml Left Ext Dig Brev Dp Br Fibular L5, S1 Nml Nml Nml Nml Nml Left QuadratusFem QuadFemoris L4-5, S1 Nml Nml Nml Nml Nml Left 1stDorInt Ulnar C8-T1 Nml Nml Nml Nml Nml Left Ext Indicis Radial (Post Int) C7-8 Nml Nml Nml Nml Nml Left Ext Digitorum Radial (Post Int) C7-8 Nml Nml Nml Nml Nml Left BrachioRad Radial C5-6 Nml Nml Nml Nml Nml Left PronatorTeres Median C6-7 Nml Nml Nml Nml Nml Left Abd Poll Brev Median C8-T1 Nml Nml Nml Nml Nml Left ABD Dig Min Ulnar C8-T1 Nml Nml Nml Nml Nml Left FlexPolLong Median (Ant Int) C7-8 Nml Nml Nml Nml Nml Left Abd Poll Long Radial (Post Int) C7-8 Nml Nml Nml Nml Nml
== END 2025-02-02 09:29 | disposition home or self-care (01) ==
LOC: ANHNEURO 09:30
PROVIDERS: PCP Family Medicine; Visit Provider Anesthesiology Pain Medicine
DX: M54.17 Radiculopathy, lumbosacral region (principal); M54.12 Radiculopathy, cervical region; M48.02 Spinal stenosis, cervical region; M48.062 Spinal stenosis, lumbar region with neurogenic claudication
CPT/HCPCS: 95886; 95913

== ENCOUNTER 2025-02-11 12:30 | Outpatient (CLI) | payer OTHER, SELFPAY ==
--- NOTE | ~2025-02-11 | XR_ITS ---
MODIFIED ESOPHAGRAM HISTORY: Dysphagia. TECHNIQUE: Modified barium esophagram was performed on 02/11/2025. I administered fluoroscopy and perf ormed the exam with speech pathologist. Patient was seated for lateral fluoroscopic imaging for lucio stion of thin liquids, pudding, solids and quantified amounts, followed by thin liquids in uncontroll ed amounts. This was recorded on tape. A single fluoroscopic spot image was also recorded. The DAP fo r this procedure was 1.302 Gycm2. The amount of fluoroscopy time used during this procedure was 2.2 m inutes. FINDINGS: Oral stage: Adequate function. Pharyngeal stage: Reduced laryngeal elevation. There is trace amount of transient/flash laryngeal pen etration without aspiration. This appeared to improve with left head turn during swallow. Cervical/esophageal stage: Adequate function. IMPRESSION: Trace amount of transient/flash laryngeal penetration without aspiration. Please correla te with speech pathologist findings and specific feeding recommendations. Reviewed, dictated and finalized at location A. IMPRESSION: Trace amount of transient/flash laryngeal penetration without aspir ation. Please correlate with speech pathologist findings and specific feeding recommendations.
--- OUTSIDE RECORDS SUMMARY | 2025-02-11 13:00 | XMS_ITS | Clinical Summary ---
Author Organization [facility] Address [address] [place] [address] Care Team Providers Care Manager Ct Name Role Phone Kendrick Chacon MD Primary Care Provider [phone] [facility],non-owned Affiliates and Associated Physician Practices is amultiple site organization consisting of ambulatory clinics and hospital sitesin [place], [place], [place]. This disclosure is being madepursuant to the Care Everywhere program and may not contain all information available regarding this patient. Last updated 18.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 Gender Identity Not on file Sexual Orientation [...] P M CDT Height 165.1 cm (5' 5) 04/18/2021 3:49 PM CDT Body Mass Index [...] patient's age to complete this topic Insurance [facility] SELF PAY NO INSURANCE Member Subscriber Plan / Payer (Ef fective for All Dates) Name:Anat Phelan Amanda Relation to Subscriber:Self Name:Anat Phelan Payer ID:Not on file Group ID:Not on file Type:Self Pay Address: [place], [place] Advance Directives Documents on File Type Date Recorded Patient Wireless Consultant Expl anation Adv Directive/Living Will/POA 01/01/2017 * Full Code (Latest Code Status on File) Date Activated Date Inactivated Comments 01/01/2017 7:27 PM 01/01/2017 9:[address] Relationship Specialty Start Date End Date Kendrick Chacon MD [address] [facility] [address] [place] [address] PCP - General 04/03/21
--- OUTSIDE RECORDS SUMMARY | 2025-02-11 13:01 | XMS_ITS | Clinical Summary ---
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 Does NOT exclude the possibility of recent exposure to HCV. Current interpretive data was last revised on 22 Blood 07/15/2024 12:4 9 PM CASHIER TICKET SELLING 07/15/2024 1:25 PM CASHIER TICKET SELLING us Jessie Sherwood MD LAB MICROBIOLOGY - GENERAL ORDERABLES Final Result [facility] Department [place] [address] from Last 3 Months or Most Recently Relevant to Health Maintenance [place] [address] [place] [address] [facility] Care Teams International Relations Professor Relationship Specialty Start Date End Date Keven Gonzalez DO [address] [place] [address] PCP - General Family Medicine 05/29/24 Kendrick Chacon MD Emergency Medicine 04/27/20 Edy Yadav MD [address] [facility] [address] Consulting Physician Pain Management 04/28/21
--- OUTSIDE RECORDS SUMMARY | 2025-02-11 13:01 | XMS_ITS | Referral Summary ---
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 Does NOT exclude the possibility of recent exposure to HCV. Current interpretive data was last revised on 22 Blood 07/15/2024 12:4 9 PM HUMAN RESOURCES FILE CLERK 07/15/2024 1:25 PM HUMAN RESOURCES FILE CLERK us Jessie Sherwood MD LAB MICROBIOLOGY - GENERAL ORDERABLES Final Result [facility] Department [place] [address] from Last 3 Months or Most Recently Relevant to Health Maintenance Insurance [facility] Care Teams Call Center Assistant Relationship Specialty Start Date End Date Keven Gonzalez DO [address] [place] [address] PCP - General Family Medicine 05/29/24 Kendrick Chacon MD Emergency Medicine 04/27/20 Edy Yadav MD [address] [facility] [place] [address] Consulting Physician Pain Management 04/28/21
--- OUTSIDE RECORDS SUMMARY | 2025-02-11 13:01 | XMS_ITS | Data Portability ---
Author Organization [facility], Main Office Address [address] [place] [address] Assessment Encounter Date Assessment Date Assessment LastModified [...] per schedule. Cont f/u with Psych at [facility] as per schedule. Cont f/u with Gyne at [facility] as per schedule. HM: WWE - 06/23, normal as per pt. Cont f/u with Gyne as per schedule. Mammo - 2 yrs ago. Ordered. Colonoscopy - Referred to GI. Flu - Pt declined. Tdap, Pneumo, Shingrix - At pharmacy/HD. F/u in 2 months. Lipids in 01/23. Annual labs in 06/25. [email or web address] Not available 10/24/2023 10:42:23 03/12/2024 03/12/2024 48 [...] Pt will be calling her Pulmo at [facility] and see if she can be seen sooner. Pt declined for referral to Cardio. All meds verified with pt. [place] 5/325 # 40 given today until she can see Wellness Consultant. Meds as directed. Good liquid and fiber intake explained. Diet and exercise explained in detail. BP diary education given and call us if any concerns. F/u with PT as per schedule. F/u with GI as per schedule. Cont f/u with Pulmo at [facility] as per schedule. Cont f/u with Psych at [facility] as per schedule. Cont f/u with Gyne at [facility] as per schedule. HM: WWE - 06/23, [...] be seeing her Pulmo on 04/08/24 at [facility]. Will refer pt to Cardio, Pain clinic. [...] per schedule. Cont f/u with Pulmo at [facility] as per schedule. Cont f/u with Psych at [facility] as per schedule. Cont f/u with Gyne at [facility] as per schedule. HM: WWE - 06/23, normal as per pt. Cont f/u with Gyne as per schedule. Mammo - 2 yrs ago. Ordered. Colonoscopy - Referred to GI. Cologuard ordered. Flu - Pt declined. Tdap, Pneumo, Shingrix - At pharmacy/HD. F/u in 1-2 months. Annual labs in 06/25. [email or web address] Not available 03/31/2024 16:12:56 04/09/2024 04/09/2024 48 [...] per schedule. Cont f/u with Pulmo at [facility] as per schedule. Cont f/u with Psych at [facility] as per schedule. Cont f/u with Gyne at [facility] as per schedule. Educated pt about alarming [...] F/u as directed. Annual labs in 06/25. [email or web address] Not available 04/09/2024 14:37:51 Plan of Treatment Reminders Order Date Submit Date Provider Last Modified By Organization Details Last Modified Time Details Appointments None recorded. Lab noninvasive colorectal cancer DNA + occult blood screening, QL, stool 2023 024 [employer] (Cologuard Orders Only), [address], [address], [place], [address], 17:19:08 lipid panel, serum [address] (Lab), [address] [place], [address], 4 08:11:23 lipid panel, serum [address] (Lab), [address] [place], [address], 4 08:30:44 Referral neurologist referral - Please call patient to schedule an appointment . Thank you. 2023 024 [email or web address] [facility] - Neurology, [address], [place], [address], 4 08:52:35 cardiologis t referral - Please call patient to schedule an appointment . Thank you. 2023 024 [email or web address] [facility] Heart And Vascular Referral Fax Line, [address] [facility] [address] [facility], [facility] [address], [place], [address], 4 07:47:52 pain management referral - Please call patient to schedule an appointment . Thank you. 2023 024 [email or web address] [facility] Pain Management, [address], [place], [address], 4 07:46:41 hematologis t referral - Multiple PEs, ex-smoker. Please call patient to schedule an appointment . Thank you. 2023 024 [email or web address] Matthew Ungernti , [address] [place], [address], 4 08:54:02 gastroenter ologist referral - Patient has new onset intussuscep tion , found on CT 01/21, not present on CT 12/12. Diverticulo sis. Please call patient to schedule an appointment . Thank you. 2023 [email or web address] [facility], [address], [address], [place], [address], 4 08:51:43 gastroenter ologist referral - Please call patient to schedule an appointment . 2023 024 [email or web address] Brenden Carlson MD, [address] [facility], [address], [place], [address], 4 08:35:15 Procedures None recorded. Surgeries None recorded. Imaging XR, hand, 3 or more view 2023 024 [email or web address] Not available 09:04:28 Medication Orders ipratropium 0.5 mg-albutero l 3 mg (2.5 mg base)/3 mL nebulizatio n soln 2023 [facility] #01335, [address] [place], [place], [id number], 4 12:05:29 albuterol sulfate HFA 90 mcg/actuati on aerosol inhaler 2023 024 [facility] #52425, [address], [place], [place], [id number], 4 12:05:29 furosemide 20 mg tablet 2023 [facility] #54214, [address], [place], [place], [id number], 4 12:05:30 omeprazole 40 mg capsule,del ayed release 2023 [facility] #07439, [address], [place], [place], [id number], 4 12:05:30 famotidine 40 mg tablet 2023 [facility] #22606, [address], [place], [place], [id number], 4 12:05:29 atorvastati n 10 mg tablet 2023 [facility] #31242, [address], [place], [place], [id number], 4 12:05:33 ipratropium 0.5 mg-albutero l 3 mg (2.5 mg base)/3 mL nebulizatio n soln 2023 024 [facility] #73307, [address], [place], [place], [id number], 4 16:00:21 Eliquis 5 mg tablet 2023 024 [facility] #16298, [address], [place], [place], [id number], 4 16:00:24 albuterol sulfate HFA 90 mcg/actuati on aerosol inhaler 2023 024 [facility] #80289, [address] [facility] [address], [place], [place], [id number], 4 16:00:26 furosemide 20 mg tablet 2023 024 [facility] #21833, [address] [facility] [address], [place], [place], [id number], 4 16:00:26 gabapentin 600 mg tablet 2023 024 [facility] #97147, [address] [facility] [address], [place], [place], [id number], 4 16:00:23 baclofen 20 mg tablet 2023 024 [facility] #19416, [address] [facility] [address], [place], [place], [id number], 4 16:00:31 atorvastati n 10 mg tablet 2023 024 [facility] #23835, [address] [facility] [address], [place], [place], [id number], 4 16:00:27 ergocalcife rol (vitamin D2) 1,250 mcg (50,000 unit) capsule 2023 024 [facility] #92444, [address] [facility] [address], [place], [place], [id number], 4 16:00:29 omeprazole 40 mg capsule,del ayed release 2023 024 [facility] #01430, [address] [facility] [address], [place], [place], [id number], 4 16:00:27 famotidine 40 mg tablet 2023 024 [facility] #49976, [address], [place], [place], [id number], 4 16:00:21 ipratropium 0.5 mg-albutero l 3 mg (2.5 mg base)/3 mL nebulizatio n soln 2023 024 [facility] #42238, [address], [place], [place], [id number], 4 10:22:20 Eliquis 5 mg tablet 2023 024 [facility] #97244, [address] [facility], [place], [place], [id number], 4 10:22:22 hydrocodone 5 mg-acetamin ophen 325 mg tablet 2023 024 [facility] #22821, [address] [facility], [place], [place], [id number], 4 10:22:59 albuterol sulfate HFA 90 mcg/actuati on aerosol inhaler 2023 024 [facility] #80905, [address] [facility] [address], [place], [place], [id number], 4 10:23:13 furosemide 20 mg tablet 2023 024 [facility] #75086, [address] [facility], [place], [place], [id number], 4 10:46:07 atorvastati n 10 mg tablet 2023 024 [facility] #31722, [address] [facility], [place], [place], [id number], 4 10:22:22 gabapentin 300 mg capsule [email or web address] [facility] #89450, [address] [facility], [place], [place], [id number], 4 16:01:49 ergocalcife rol (vitamin D2) 1,250 mcg (50,000 unit) capsule 2023 [facility] #79139, [address] [facility], [place], [place], [id number], 4 10:22:22 omeprazole 40 mg capsule,del ayed release 2023 [facility] #31295, [address] [facility], [place], [place], [id number], 4 10:22:24 famotidine 40 mg tablet 2023 024 [facility] #52178, [address] [facility], [place], [place], [id number], 4 10:22:21 docusate sodium 100 mg capsule 2023 024 [facility] #94138, [address] [facility], [place], [place], [id number], 4 14:26:23 phentermine 37.5 mg tablet [email or web address] [facility] [address] [facility] #62119, [address] [facility], [place], [place], [id number], 4 10:13:02 diclofenac sodium 75 mg tablet,tarsha yed release 2023 024 [facility] #71970, [address] [facility], [place], [place], [id number], 4 10:36:23 atorvastati n 10 mg tablet 02/2023 [facility] #98880, [address] [facility], [place], [place], [id number], 4 10:32:43 phentermine 37.5 mg tablet 2023 [email or web address] [facility] #09229, [address] [facility] [address], [place], [place], [id number], 4 10:13:02 ergocalcife rol (vitamin D2) 1,250 mcg (50,000 unit) capsule 2023 [facility] #74509, [address] [facility], [place], [place], [id number], 4 10:32:39 omeprazole 40 mg capsule,del ayed release 2023 [facility] #74536, [address] [facility], [place], [place], [id number], 4 10:32:40 famotidine 40 mg tablet 2023 [facility] #17524, [address] [facility], [place], [place], [id number], 4 10:32:42 Patient TargetsNo targets recorded. Patient Instructions Encounter Date Encounter Id Patient Instructions Last Modified By Organization Details Last Modified Time 10/24/2023 [id number] learning about obesity [email or web address] Not available 10/24/2023 10:32:32 03/12/2024 [id number] learning about obesity [email or web address] Not available 03/12/2024 10:22:13 Thank you for [...] Medical Equipment needed: Billing Guidelines CPT code 56103- Transitional Care Management services with moderate medical decision complexity (llmj-pv-qhek visit within 14 days of discharge). CPT code 98794- Transitional Care Management services with high medical decision complexity (hfrl-xf-xjff visit within 7 days of discharge). Not available 03/12/2024 09:52:22 03/31/2024 [id number] learning about obesity [email or web address] Not available 03/31/2024 16:00:11 Thank you for [...] to discuss. Not available 03/31/2024 15:42:48 04/09/2024 [id number] Thank you for your visit to our [...] Not available 04/09/2024 11:46:58 Reason for Referral Network Developer Referral for Screening colonoscopy Please call patient to schedule an appointment. Referring Physician: Ang Patterson [facility], Encounter Date: 10/24/2023 Network Developer Referral for Intussusception of small intestine Patient [...] [facility], Encounter Date: 03/31/2024 Executive Associate Referral for Dy spnea on exertion Please [...] I AG, EIA, STOOL Micro Numbe r: [id number] Test Statu s: Final Speci men [...] Range : Not Detec leti Not Available [facility] [address], [place], [address], 10/02/2023 13:18:31 04/07/20 24 04/07/2024 COLOG UARD [...] of 10,00 0 indiv idual s at [place] [facility] risk for color ectal cance r [...] asymp tomat ic indiv idual s at [place] ge risk for color ectal cance r. [...] 112:1 016-1 030. TEST DESCR IPTIO N: Lisman site algor ithmi c genesis sis of [...] years or older , who are at [facility] for color ectal cance r (CRC) . Colog uard has been appro rohan for use by the U.[place]. FDA. The perfo rmanc e of Colog uard was estab lishe d in a cross secti onal study of [facility] adult s aged 50-84 . Colog uard [...] study of 0 [facility] color ectal cance r [...] at [email or web address] sang [email or web address] om. Not Available [employer] (Cologuard Orders Only) [address], [place], [address], 04/11/2024 17:19:08 12/13/19 24 12/13/2023 CT, abdom en + pelvi s, w/ contr ast No observ ation record ed. [facility] [address], [place], [address], 12/23/2023 09:42:22 12/30/19 24 12/30/2023 CT, cervi bimal spine , w/o contr ast No observ ation record ed. [email or web address] [address], [place], [address], 12/30/2023 14:14:10 12/30/19 24 12/30/2023 XR, lumbo sacra l spine , 2 or 3 view No observ ation record ed. [address], [place], [address], 12/30/2023 14:14:21 01/22/20 24 01/22/2024 XR, chest No observ ation record ed. [email or web address] [facility], [place], [address], 01/22/2024 11:16:05 01/22/20 24 01/22/2024 LDCT, chest , for lung cance r scree audra No observ ation record ed. [address] [address], [place], [address], 01/22/2024 17:06:54 01/22/20 24 01/22/2024 CT, angio gram, chest , w/ contr ast No observ ation record ed. [address] [address], [place], [address], 03/12/2024 11:08:31 02/24/20 24 02/24/2024 US, doppl er echoc ardio gram No observ ation record ed. [address] [address], [place], [address], 03/12/2024 10:02:16 03/25/20 24 03/25/2024 XR, chest , 2 view No observ ation record ed. [address] [address], [place], [address], 03/31/2024 15:49:25 03/25/20 24 03/25/2024 CT, angio gram, chest , w/ contr ast No observ ation record ed. [address] [address], [place], [address], 03/31/2024 15:49:25 04/02/20 24 04/02/2024 CT, brain , w/o contr ast No observ ation record ed. [address], [place], [address], 04/09/2024 11:57:47 04/02/20 24 04/02/2024 XR, chest No observ ation record ed. [address], [place], [address], 04/09/2024 11:57:47 04/29/2004/08/2024 imagi ng/di agnos tic resul t No observ ation record ed. [address], [place], [address], 04/29/2024 09:51:53 Result Notes None recorded. Problems Name Problem SNOMED Code Status Onset Date Resolution Date Notes Provider Name and Address Organization Details Recorded Time Depressive disorder 42521202 Active 2022 Ang Patterson MD [address], [place], [address], [employer] 15:00:33 Anxiety disorder 939158828 Active 2022 Ang Patterson MD [address], [place], [address], [employer] 3 15:00:39 Posttraumat ic stress disorder 35373920 Active 2022 Ang Patterson MD [address], [place], [address], [employer] 15:00:45 Obesity 491033796 Active 2022 Ang Patterson MD [address], [place], [address], [employer] 3 15:01:02 Chronic neck pain 0857911271319 Active 2022 Ang Patterson MD [address], [address], [place], [address], [employer] 3 15:03:12 Chronic low back pain 366909862 Active 2022 Ang Patterson MD [address], [place], [address], [employer] 3 15:03:20 Cervical spondylosis without myelopathy 741649251 Active 2022 Ang Patterson MD [address], [place], [address], [employer] 3 15:17:42 Ex-smoker 2577524 Active 2022 Ang Patterson MD [address], [place], [address], [employer] 3 15:17:55 Degeneratio n of cervical interverteb ral disc 34340052 Active 2022 Ang Patterson MD [address], [place], [address], [employer] 3 14:38:13 Otalgia of right ear 2348978058 Active 2022 Ang Pattersno MD [address], [place], [address], [employer] 3 09:56:32 Chronic idiopathic constipatio n 74362025 Active 2022 Ang Patterson MD [address], [place], [address], [employer] 3 09:58:26 Gastroesoph ageal reflux disease without esophagitis 791883845 Active 2022 Ang Patterson MD [address], [place], [address], [employer] 3 09:59:58 Xerostomia 58551639 Active 2022 Ang Patterson MD [address], [place], [address], [place] [facility] 3 10:05:03 Anemia 996517288 Active 2022 Ang Patterson MD [address], [place], [address], [place] [facility] 3 14:59:07 Vitamin D deficiency 10275360 Active 2023 Ang Patterson MD [address], [place], [address], [place] [facility] 4 10:31:01 Hyperlipide ana 58723073 Active 2023 Ang Patterson MD [address], [place], [address], [place] [facility] 4 10:31:30 Pain of bilateral hands 1371630429916 9109 Active 2023 Ang Patterson MD [address], [place], [address], [place] [facility] 4 10:34:43 Intussuscep tion of small intestine 879866884 Active 2023 SHIRA Mckeon [address], [place], [address], [place] [facility] 4 14:12:52 Pulmonary embolism 32758025 Active 2023 Ang Patterson MD [address], [place], [address], [place] [facility] 4 10:05:37 Pulmonary embolism with pulmonary infarction 2487724643800 Active 2023 Ang Patterson MD [address], [place], [address], [place] [facility] 4 10:13:28 Dyspnea on exertion 12218879 Active 2023 Ang Patterson MD [address], [place], [address], [facility] [employer] [facility] 4 15:57:53 Tremor 19773582 Active 2023 Ang Patterson MD [address], [place], [address], [facility] [employer] [facility] 4 11:59:25 Problem Notes None recorded. Procedures Surgical History Date Name Laterality Status Provider Name and Address Organization Details Recorded Time 03/31/2024 Transition al_Care_Ma nagement completed [facility] [employer] [facility] 03/31/2024 15:42:49 03/12/2024 Transition al_Care_Ma nagement completed Alexx [employer] [facility] [employer] [facility] 03/12/2024 09:52:22 Imaging Results None recorded. Procedure [...] Not Available Not Available No t Available folic acid 1 mg tablet TAKE 1 [...] Details Last Updated DateTime 10/24/2023 32.5 kg/m2 00186.86 g Ang Patterson MD [address], [address], [place] [employer] [facility] 10/24/2023 10:40:55 Date Recorded Body height Body temperature Heart rate Respiratory rate Oxygen saturation Oxygen saturation in Arterial blood by Pulse oximetry Systolic blood pressure Diastolic blood pressure Provider Name and Address Organization Details Last Updated DateTime 4 165.1 cm 98 [degF] 98 /min 20 /min 99 % 99 % 132 mm[Hg] 72 mm[Hg] Alexx [employer] [facility] 4 10:05:54 Date Recorded Body height Body temperature Heart rate Oxygen saturation Oxygen saturation in Arterial blood by Pulse oximetry Body mass index (BMI) Body weight Systolic blood pressure Diastolic blood pressure Provider Name and Address Organization Details Last Updated DateTime 4 165.1 cm 98.7 [degF] 89 /min 98 % 98 % 33 kg/m2 71074.4 4 g 173 mm[Hg] 102 mm[Hg] Tana Brown MA [facility] 4 14:07:48 Date Recorded Heart rate Respiratory rate Oxygen saturation Oxygen saturation in Arterial blood by Pulse oximetry Inhaled oxygen flow rate Systolic blood pressure Diastolic blood pressure Provider Name and Address Organization Details Last Updated DateTime 4 100 /min 24 /min 90 % 90 % 2 L/min 146 mm[Hg] 88 mm[Hg] Ang Patterson MD [address], [place], [address], [facility] [employer] 4 10:41:10 Date Recorded Body height Body mass index (BMI) Body weight Body temperature Provider Name and Address Organization Details Last Updated DateTime 03/12/2024 165.1 cm 30.5 kg/m2 24023.75 g 98.2 [degF] Alexx [employer] [facility] [employer] 03/12/2024 09:56:29 Date Recorded Heart rate Respiratory rate Oxygen saturation Oxygen saturation in Arterial blood by Pulse oximetry Inhaled oxygen flow rate Provider Name and Address Organization Details Last Updated DateTime 4 110 /min 22 /min 94 % 94 % 2 L/min Ang Patterson MD [address], [place], [address], [place] [employer] [facility] 4 16:08:35 Date Recorded Body height Body mass index (BMI) Body weight Body temperature Systolic blood pressure Diastolic blood pressure Provider Name and Address Organization Details Last Updated DateTime 4 165.1 cm 32.1 kg/m2 86617.3 8 g 98.1 [degF] 144 mm[Hg] 90 mm[Hg] Alexx [employer] [facility] 4 15:47:52 Date Recorded Heart rate Oxygen saturation Oxygen saturation in Arterial blood by Pulse oximetry Provider Name and Address Organization Details Last Updated DateTime 04/09/2024 96 /min 96 % 96 % Ang Patterson MD [address], [place], [address], [facility] [employer] 04/09/2024 12:43:19 Date Recorded Body height Body mass index (BMI) Body weight Body temperature Respiratory rate Systolic blood pressure Diastolic blood pressure Provider Name and Address Organization Details Last Updated DateTime 165.1 cm 31.8 kg/m2 49605.4 9 g 97.9 [degF] 16 /min 146 mm[Hg] 86 mm[Hg] [employer]x [employer]da 11:51:44 Social History Question Answer Notes LastModified by Organizat ion Details LastModified Time Tobacco Smoking Status Former Smoker Ang Patterson MD [address] [facility] [address], [place], [address], [facility] [employer] 04/23/2023 15:18:12 Do You Have An Advance [...] Or The Highest Degree You Have Received? [id number] Information not available 04/23/2023 Have There Been [...] Do You Have A Medical Power Of Explosive Ordnance Manager? No Information not available 04/23/2023 How Many [...] anxious, or unable to sleep at night)? [id number] Information not available 04/23/2023 Family History Nothing [...] TEST N HYPOTENSION N MYOCARDIAL INFARCTION N OBESITY N [place] [...] HAVE YOU BEEN HOSPITALIZED OR SEEN IN [facility] IN THE PAST YEAR ? N ATHEROSCLEROSIS [...] SNOMED-CT Code Diagnosis ICD10 Code Diagnosis Note [id number] Ang Patterson MD [facility] [address] [address] 04/23/2023 14:37:09 04/23/2023 15:24:12 Depressive disorder 01429728 F32.A Anxiety disorder 6109648 06 F41.9 Posttrauma tic stress disorder 30911496 F43.10 Obesity 164715668 E66.9 Ex-smoker 3954366 Z87.89 1 Chronic neck pain 113564 8713 107 M54.2 Chronic low back pain 27 9504521 M54.50 Cervical s pondylosis without myelopathy 165390934 M47.799 [id number] Ang Patterson MD [address] [address] 05/14/2023 17:26:14 05/14/2023 17:49:44 Chronic neck pain 5638016348 107 M54.2 Chronic low back pain 27 5912094 M54.50 Cervical s pondylosis without myelopathy 121351894 M47.812 Depressive disorder 3548 9007 F32.A Anxiety disorder 9532754 06 F41.9 Posttrauma tic stress disorder 90398139 F43.10 Obesity 919374788 E66.9 Ex-smoker 1662411 Z87.89 1 Degenerati on of cervical intervertebral disc 03967953 M50.30 [id number] Ang Patterson MD [address] [address] 06/04/2023 09:43:47 06/04/2023 10:27:29 Adult health examination 413803269 Z00.00 Chronic neck pain 776646 9013 107 M54.2 Chronic low back pain 27 0791771 M54.50 Obesity 763031238 E66.9 Ex-smoker 7211446 Z87.89 1 Otalgia of right ear 255 7454364 H92.01 Screening colonoscopy 44 0770129 Z12.11 Chronic id iopathic constipation 57776572 K59.04 Gastroesop hageal reflux disease without esophagitis 781429281 K21.9 Screening mammography 24 914235 Z12.31 Cervical s pondylosis without myelopathy 730303897 M47.812 Xerostomia 31369875 R68. 2 [id number] Ang Patterson MD [address] [address] 06/25/2023 14:39:36 06/25/2023 15:24:08 Chronic neck pain 6128658078 107 M54.2 Chronic low back pain 27 4548505 M54.50 Obesity 635652416 E66.9 Ex-smoker 1135680 Z87.89 1 Chronic id iopathic constipation 38537098 K59.04 Gastroesop hageal reflux disease without esophagitis 948768480 K21.9 Cervical s pondylosis without myelopathy 657742972 M47.812 Xerostomia 62451816 R68. 2 Anemia 359880044 D64.9 [id number] Ang Patterson MD [address] [address] 07/18/2023 15:27:03 07/18/2023 15:47:18 Chronic neck pain 9804445568 107 M54.2 Chronic low back pain 27 3947523 M54.50 Obesity 955041215 E66.9 [id number] Ang Patterson MD [address] [address] 08/22/2023 10:25:27 08/22/2023 10:43:48 Obesity 799444490 E66.9 Gastroesop hageal reflux disease without esophagitis 637683258 K21.9 Depressive disorder 3548 9007 F32.A [id number] Ang Patterson MD [address] [address] 10/24/2023 09:54:39 10/24/2023 10:45:37 Gastroesophageal reflux disease without esophagitis 843250216 K21.9 Obesity 297484845 E66.9 Vitamin D deficiency 347 16662 E55.9 Hyperlipidemia 72642815 E78.5 Pain of bi lateral hands 3434522207 1511708 M79.641 Screening colonoscopy 44 9098349 Z12.11 [id number] Ang Patterson MD [address] [address] 01/29/2024 13:56:02 01/29/2024 14:34:01 Intussusception of small intestine 602079313 K56.1 Chronic id iopathic constipation 05551930 K59.04 Obesity 765498941 E66.9 [id number] Ang Patterson MD [address] [address] 03/12/2024 09:48:48 03/12/2024 11:12:17 Vitamin D deficiency 57844135 E55.9 Hyperlipidemia 86460131 E78.5 Gastroesop hageal reflux disease without esophagitis 469031249 K21.9 Obesity 972334881 E66.9 Pain of bi lateral hands 0175123615 1878747 M79.641 Hospital i npatient stay within past 30 days 2940500376 106 Z76.89 Transition of care 92805 57348 105 Z75.8 Pulmonary embolism 07462 003 I26.99 Cervical s pondylosis without myelopathy 915442506 M47.812 Pulmonary embolism with pulmonary infarction 5599375291 102 I26.99 [id number] Ang Patterson MD [address] [address] 03/31/2024 15:36:12 03/31/2024 16:29:17 Transition of care 2907832843 105 Z75.8 Pulmonary embolism 96898 003 I26.99 Vitamin D deficiency 347 25613 E55.9 Hyperlipidemia 92471451 E78.5 Gastroesop hageal reflux disease without esophagitis 825712243 K21.9 Obesity 807549331 E66.9 Pain of bi lateral hands 9201009590 4911555 M79.641 Cervical s pondylosis without myelopathy 554486222 M47.812 Pulmonary embolism with pulmonary infarction 6732665718 102 I26.99 Dyspnea on exertion 6084 5006 R06.09 Screening for malignant neoplasm of colon 634915748 Z12.11 [id number] Ang Patterson MD [address] [address] 04/09/2024 11:38:36 04/09/2024 14:39:32 Transition of care 2555252723 105 Z75.8 Pulmonary embolism 37782 003 I26.99 Vitamin D deficiency 347 15636 E55.9 Hyperlipidemia 81282813 E78.5 Gastroesop hageal reflux disease without esophagitis 848811291 K21.9 Obesity 938758503 E66.9 Pain of bi lateral hands 1623322234 2855067 M79.641 Cervical s pondylosis without myelopathy 275380345 M47.812 Pulmonary embolism with pulmonary infarction 9881346394 102 I26.99 Dyspnea on exertion 6084 5006 R06.09 Tremor 06318941 R25.1 Hospital i npatient stay within past 30 days 7836133104 106 Z76.89 Health Concerns Section Related Observation LastModified by Organization Detai ls LastModified Time None Recorded Concern Status LastModified by Organization Details LastModified Time None Recorded Advance Directives Directive N: Payers Insurance Date Sequence Insurance Name Policy Number Policy Walsh Covered Member ID Walsh Member ID Guarantor Name 03/31/2024 1 [facility] (MEDICAID REPLACEMENT - HMO) [id number] Anat Phelan [id number] Anat Camdenchristianne 12/26/2023 1 *SELF PAY* Ka arnulfo Camdenchristianne 03/30/2024 1 *SELF PAY* Ka arnulfo Camdenchristianne 03/31/2024 1 [facility] (MEDICAID REPLACEMENT - HMO) [id number] Anat Phelan [id number] Anat Camdenchristianne 03/31/2024 2 [place] Anat Phelan [id number] Anat Phelan 03/31/2024 1 [place] [facility] [place] Anat Phelan [id number] Anat Phelan 03/31/2024 2 [place] Anat Phelan [id number] Anatestela Phelan 03/31/2024 2 [place] Anat Phelan [id number] Anat Phelan 01/05/2025 1 [place] Anat Phelan [id number] Anat Phelan 03/31/2024 2 [place]RE[place] Anat Phelan [id number] Anat Phelan Notes Date Note Type Note [...] PTSD and is f/u with Psych at [facility] for it. Pt is on meds by them and is doing overall well with it. Denies any mood swings/SI/HI. Pt was f/u with Endo at [facility] and is on chronic Prednisone from them for last couple years. Ang Patterson MD [address] [facility], [address] [place] [address], [place], [address], [facility] [employer] 10/24/2023 10:42:51 01/29/2024 text/html Anat alvarez is [...] speak with case managment. SHIRA Mckeon [address] [facility], [place], [address], [employer] 01/29/2024 14:33:48 03/12/2024 text/html Hospital fuv:Pt has some insurance issues going on. Pt was admitted to [facility] on 02/22/24 due to not feeling well. Pt was found to have Pneumonia, PE, pulmonary infarction, pulmonary edema. Pt has finished her antibiotics and she is on Eliquis and Branchland. Pt is needing refill on them. Pt will be seeing Pulmo at [place] in few weeks. Pt has home O2 [...] PTSD and is f/u with Psych at [facility] for it. Pt is on meds by them and is doing overall well with it. Denies any mood swings/SI/HI. Pt was f/u with Endo at [facility] and is on chronic Prednisone from them for last couple years. Ang Patterson MD [address] [facility], [address], [place], [address], [employer] 03/12/2024 11:10:25 03/31/2024 text/html Hospital fuv: Pt was seen in ED again on 03/25/24 due to SOB and chest pain and got work up done and was found to have Pneumonia. So pt was d/c on Z-jeanmarie and hydrocodone from ED. Pt has finished Z-jeanmarie and is feeling much better now. No fever/chills/n/v/d/sp utum. Pt will be seeing Pulmo at [place] on 04/08/24. Pt has home O2 set up done already and she has with her. Pt was admitted to [facility] on 02/22/24 due to not feeling well. Pt was found to have Pneumonia, PE, pulmonary infarction, pulmonary edema. Pt has finished her antibiotics and she is on Eliquis and Branchland. Pt is needing refill on them. Pt [...] PTSD and is f/u with Psych at [facility] for it. Pt is on meds by them and is doing overall well with it. Denies any mood swings/SI/HI. Pt was f/u with Endo at [facility] and is on chronic Prednisone from them for last couple years. Ang Patterson MD [address] [place] [address], [facility] [address], [place], [address], [place] [facility] [employer] 03/31/2024 16:13:31 04/09/2024 text/html Hospital fuv: Pt [...] body pain and she is asking for Branchland. Pt is not taking her Gabapentin. Pt was seen couple weeks ago and was given Branchland by me # 40 on 03/21/24 and [...] week. Pt is f/u with Pulmo at [place] for her Pneumonia, PE and chronic hypoxia and is on meds by them. Pt has home O2 set up for her home. Pt was admitted to [facility] on 02/22/24 due to not feeling well. Pt was found to have Pneumonia, PE, pulmonary infarction, pulmonary edema. Pt has finished her antibiotics and she is on Eliquis and Branchland. Pt is needing refill on them. Pt [...] PTSD and is f/u with Psych at [facility] for it. Pt is on meds by them and is doing overall well with it. Denies any mood swings/SI/HI. Pt was f/u with Endo at [facility] and is on chronic Prednisone from them for last couple years. Ang Patterson MD [address] [facility], [facility] [address], [place], [address], [facility] [employer] 04/09/2024 14:38:39 OBGyn Episode No OBEpisode recorded.
--- NOTE | 2025-02-11 14:21 | REHSTMBS ---
Assessment and note entered by Jeane Esparza, [employer]ER [employer] Modified Barium Swallow Evaluation ICD-10 Condition Codes (ST) Dysphagia, unspecified R13.1 Subjective Information The patient is a 49 yr old female referred following an ENT consult for the evaluation of patient reported dysphagia. The patient has a history of severe reflux, esophagitis, and degenerative disc disease C4-C7. She reports a persistent sticking sensation in her throat with solids and difficulty swallowing solids. She states she frequent coughs and feels the need to clear her throat. She reports no history of pneumonia. Feeding Type Recommended Oral Food Consistency Regular, Level 7 Liquid Consistency Thin (0) ST Clinical Summary The patient is a 49 yr old female referred following an ENT consult for the evaluation of patient reported dysphagia. The patient has a history of severe reflux, esophagitis, and degenerative disc disease C4-C7. She reports a persistent sticking sensation in her throat with solids and difficulty swallowing solids. She states she frequent coughs and feels the need to clear her throat. She reports no history of pneumonia. The patient was viewed in the lateral position and presented tsp amounts thin liquid barium, uncontrolled cup amounts thin liquid barium, uncontrolled/cup amounts mildly thick liquid barium, pudding mixed with barium paste, and cracker coated with barium. Oral Stage: Oral preparation and transit appeared timely across consistencies. Pharyngeal stage: The patient was viewed to have trace/flash laryngeal penetration with uncontrolled cup amount thin liquid barium, mildly thick liquid barium via cup, pudding mixed with barium paste, and cracker/solid coated with barium. The trace/flash amount of penetration occurred during the swallow and remained above the vocal folds and was ejected with completion of the swallow. No aspiration or penetration was viewed and no residual remained in the vallecular or pyriform sinus for all consistencies. Posture modification to utilize a left head turn with swallows appeared to eliminate the trace/flash penetration. Cervical/Esophageal Phase: Trace esophageal backflow noted for pudding mixed with barium paste and cracker coated with barium paste.
--- NOTE | 2025-02-11 15:48 | REHSTMBS ---
Assessment and note entered by Jeane Esparza, NURSING UNIT COORDINATOR Modified Barium Swallow Evaluation ICD-10 Condition Codes (ST) Dysphagia, unspecified R13.1 Subjective Information The patient is a 49 yr old female referred following an ENT consult for the evaluation of patient reported dysphagia. The patient has a history of severe reflux, esophagitis, and degenerative disc disease C4-C7. She reports a persistent sticking sensation in her throat with solids and difficulty swallowing solids. She states she frequent coughs and feels the need to clear her throat. She reports no history of pneumonia. Feeding Type Recommended Oral Food Consistency Regular, Level 7 Liquid Consistency Thin (0) ST Clinical Summary The patient was viewed in the lateral position and presented tsp amounts thin liquid barium, uncontrolled cup amounts thin liquid barium, uncontrolled/cup amounts mildly thick liquid barium, pudding mixed with barium paste, and cracker coated with barium. Oral Stage: Oral preparation and transit appeared timely across consistencies. Pharyngeal stage: The patient was viewed to have trace/flash laryngeal penetration with uncontrolled cup amount thin liquid barium, mildly thick liquid barium via cup, pudding mixed with barium paste, and cracker/solid coated with barium. The trace/flash amount of penetration occurred during the swallow and remained above the vocal folds and was ejected with completion of the swallow. No aspiration or penetration was viewed and no residual remained in the vallecular or pyriform sinus for all consistencies. Posture modification to utilize a left head turn with swallows appeared to eliminate the trace/flash penetration. Cervical/Esophageal Phase: Trace esophageal backflow noted for pudding mixed with barium paste and cracker coated with barium paste. Recommend: Left head turn with swallows for comfort of swallow.
== END 2025-02-11 12:31 | disposition home or self-care (01) ==
PROVIDERS: PCP Family Medicine; Visit Provider Otolaryngology
DX: R13.10 Dysphagia, unspecified (principal)
CPT/HCPCS: 92611

== ENCOUNTER 2025-02-24 08:07 | Outpatient (CLI) | payer OTHER, SELFPAY ==
--- NOTE | ~2025-02-24 | XR_ITS ---
EXAM/ PROCEDURE: XR hip BI 2V w AP pelvis - 02/24/2025 8:10 CDT HISTORY: 49 years old Female with R10.2 - Pelvic and perineal pain CHRONIC PAIN COMPARISON: None available TECHNIQUE: 5 view(s) FINDINGS/ IMPRESSION: There are no fractures or dislocations.Joint spaces are within normal limits Reviewed, dictated and finalized at location A.
== END 2025-02-24 08:08 | disposition home or self-care (01) ==
PROVIDERS: PCP Family Medicine; Visit Provider Family Medicine
DX: R10.2 Pelvic and perineal pain (principal)
CPT/HCPCS: 73521

== ENCOUNTER 2025-02-26 07:48 | Outpatient (CLI) | payer OTHER, SELFPAY ==
--- NOTE | ~2025-02-26 | XR_ITS ---
EXAM/ PROCEDURE: XR sacrum coccyx min 2V - 02/26/2025 7:56 CDT HISTORY: 49 years old Female with FALL 2 WEESacrococcygeal disorders, not elsewhere classified COMPARISON: None available TECHNIQUE: Four view(s) FINDINGS/ IMPRESSION: There are no fractures or dislocations.Joint space narrowing, subchondral sclerosis, subchondral cyst formation and osteophyte formation, compatible with mild osteoarthritis. Reviewed, dictated and finalized at location A.
== END 2025-02-26 07:49 | disposition home or self-care (01) ==
PROVIDERS: PCP Family Medicine; Visit Provider Family Medicine
DX: M53.3 Sacrococcygeal disorders, not elsewhere classified (principal)
CPT/HCPCS: 72220

== ENCOUNTER 2025-03-09 10:02 | Day surgery (SDC) | payer OTHER, SELFPAY ==
[2025-03-02 10:58] VITALS: BMI 26.4
--- NOTE | ~2025-03-09 | XR_ITS ---
INTRAOPERATIVE FLUOROSCOPY: CLINICAL HISTORY: 49 years old Female; DIAG/PROG FALGUNI L2,L3,L4,L5 NERVE BLK PROCEDURE COMMENTS: Limited intraoperative fluoroscopy of the lumbar spine was performed. CUMULATIVE DOSE: 15.3 mGy FLUOROSCOPY TIME: 72.4 seconds FINDINGS/IMPRESSION: Please refer to operative note for further details. Reviewed, dictated and finalized at location A.
--- OUTSIDE RECORDS SUMMARY | 2025-03-09 10:11 | XMS_ITS | Referral Summary ---
Author Organization [facility] Address [address] [place] [address] Care Team Providers Care Human Geography Instructor Name Role Phone Kendrick Chacon MD Unavailable Edy Yadav MD Unavailable Keven Gonzalez DO Primary Care Provider Encounters Date Type Department Care Team Description 01/20/2025 10:00 AM CDT Office Visit [facility] Rheumatology [address] [facility] 5[address] [place] [address] [place] [address] Jessie Sherwood MD Rheumatoid arthritis [...] blister with device 1 puff daily Active Symbicort 160-4.5 mcg/actuation inhaler 12/22/19 25 [...] (COMPAZINE) 5 mg tablet 01/20/20 25 Active hydroxychloroquin e (PLAQUENIL) 200 mg tabletIndications :Arthralgia, unspecified joint Take 1 tablet (200 mg total) by mouth 2 (two) times a day 60 tablet 1 03/02/20 25 Active hydroxychloroquin e (PLAQUENIL) 200 mg tabletIndications :Arthralgia, unspecified joint Take 1 tablet (200 mg total) by mouth 2 (two) times a day 60 tablet 5 07/22/20 24 025 Discontin ued(Reord er) Active Problems Problem Noted Date Diagnosed Date [...] 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 Does NOT exclude the possibility of recent exposure to HCV. Current interpretive data was last revised on 22 Blood 07/15/2024 12:4 9 PM SHORTHAND TEACHER 07/15/2024 1:25 PM SHORTHAND TEACHER us Jessie Sherwood MD LAB MICROBIOLOGY - GENERAL ORDERABLES Final Result [facility] [address] [facility] Department [place] [address] from Last 3 Months or Most Recently Relevant to Health Maintenance Insurance [facility] Care Teams Human Geography Instructor Relationship Specialty Start Date End Date Keven Gonzalez DO [address] [facility] [address] [place] [address] PCP - General Family Medicine 05/29/24 Kendrick Chacon MD Emergency Medicine 04/27/20 Edy Yadav MD [address] [facility], [address] [address] Consulting Physician Pain Management 04/28/21
--- OUTSIDE RECORDS SUMMARY | 2025-03-09 10:11 | XMS_ITS | Clinical Summary ---
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 on 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 Not [...] (1 of 2) 1995 Influenza Vaccine (#1) 2025 DTaP/Tdap/Td Vaccine (3 - Td or Tdap) 02/22/2027 02/22/2017, 07/18/2015, 11/12/2005 Hepatitis B Screening Completed 05/27/2006 , 12/20/2005, 11/12/2005 Hepatitis C Screening Completed 07/15/2024 Procedures Procedure Name Priority Date/Time Associated Diagnosis Comments HEPATITIS C ANTIBODY Routine 07/15/2024 12:49 PM EXPERIENCE PLANNING STRATEGIST Effusion of joint, unspecified location Arthralgia, unspecified joint from Last 3 Months or Most Recently Relevant to Health Maintenance Results * Hepatitis C antibody Blood (07/15/2024 12:49 PM EXPERIENCE PLANNING STRATEGIST) Hep C Ab Nonreactive Nonreactive Comment:Antibodies to HCV no t detected. Does NOT exclude the possibility of recent exposure to HCV. Current interpretive data was last revised on 22 Blood 07/15/2024 12:4 9 PM EXPERIENCE PLANNING STRATEGIST 07/15/2024 1:25 PM EXPERIENCE PLANNING STRATEGIST us Jessie Sherwood MD LAB MICROBIOLOGY - GENERAL ORDERABLES Final Result [facility] [address] [facility] Department [place] [address] from Last 3 Months or Most Recently Relevant to Health Maintenance [place] [place] [address] [place] [address] Care Teams Recreational Therapist Relationship Specialty Start Date End Date Keven Gonzalez DO [address] [place] [address] PCP - General Family Medicine 05/29/24 Kendrick Chacon MD Emergency Medicine 04/27/20 Edy Yadav MD [address] [facility] [address] Consulting Physician Pain Management 04/28/21
--- OUTSIDE RECORDS SUMMARY | 2025-03-09 10:11 | XMS_ITS | Clinical Summary ---
Author Organization [facility] Address [address] [place] [address] Care Team Providers Care Or Rn Name Role Phone Kendrick Chacon MD Primary Care Provider [phone] Source Comments [facility],non-owned Affiliates and Associated Physician Practices is amultiple site organization consisting of ambulatory clinics and hospital sitesin [place], [place], [place] and [place]. This disclosure is being madepursuant to the Care Everywhere program and may not contain all information available regarding this patient. 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 Gender Identity Not on file Sexual Orientation [...] SCREENING 1976 LIPID TESTING 1976 MAMMOGRAM 1976 HIV SCREENING 1991 HEPATITIS C SCREENING 07/25/1994 DTAP/TDAP/TD VACCINES (1 - Tdap) 1995 HEPATITIS B VACCINE (1 of 3 - 19+ 3-dose series) 1995 PNEUMOCOCCAL VACCINE (1 of 2 - PCV) 1995 PAP SMEAR 1997 SCREENING FOR DIABETES 06/15/2020 COVID-19 VACCINE (1 [...] patient's age to complete this topic Insurance [facility] SELF PAY NO INSURANCE Member Subscriber Plan / Payer (Ef fective for All Dates) Name:Anat Phelan Amanda Relation to Subscriber:Self Name:Anat Phelan Payer ID:Not on file Group ID:Not on file Type:Self Pay Address: [place], [place] Advance Directives Documents on File Type Date Recorded Patient Medical Engineer Expl anation Adv Directive/Living Will/POA 01/01/2017 * Full Code (Latest Code Status on File) Date Activated Date Inactivated Comments 01/01/2017 7:27 PM 01/01/2017 9:50 PM Care Teams Or Rn Relationship Specialty Start Date End Date Kendrick Chacon MD [address] [facility] [address] [place] [address] PCP - General 04/03/21
--- OUTSIDE RECORDS SUMMARY | 2025-03-09 10:11 | XMS_ITS | Data Portability ---
Author Organization [facility] [employer], Main Office Address [address] [place] [address] Assessment Encounter Date Assessment Date Assessment LastModified [...] per schedule. Cont f/u with Psych at [facility] as per schedule. Cont f/u with Gyne at [place] as per schedule. HM: WWE - 06/23, normal as per pt. Cont f/u with Gyne as per schedule. Mammo - 2 yrs ago. Ordered. Colonoscopy - Referred to GI. Flu - Pt declined. Tdap, Pneumo, Shingrix - At pharmacy/HD. F/u in 2 months. Lipids in 01/23. Annual labs in 06/25. [email or web address] Not available 10/24/2023 10:42:23 03/12/2024 03/12/2024 48 [...] Pt will be calling her Pulmo at [place] and see if she can be seen sooner. Pt declined for referral to Cardio. All meds verified with pt. Byers 5/325 # 40 given today until she can see Recruitment Officer. Meds as directed. Good liquid and fiber intake explained. Diet and exercise explained in detail. BP diary education given and call us if any concerns. F/u with PT as per schedule. F/u with GI as per schedule. Cont f/u with Pulmo at [place] as per schedule. Cont f/u with Psych at [facility] as per schedule. Cont f/u with Gyne at [place] as per schedule. HM: WWE - 06/23, normal as per pt. Cont f/u with Gyne as per schedule. Mammo - 2 yrs ago. Ordered. Colonoscopy - Referred to GI. Flu - Pt declined. Tdap, Pneumo, Shingrix - At pharmacy/HD. F/u in 1 month. Lipids before next visit. Annual labs in 06/25. [email or web address] Not available 03/12/2024 11:09:21 03/31/2024 03/31/2024 48 [...] be seeing her Pulmo on 04/08/24 at [place]. Will refer pt to Cardio, Pain clinic. [...] per schedule. Cont f/u with Pulmo at [place] as per schedule. Cont f/u with Psych at [facility] as per schedule. Cont f/u with Gyne at [place] as per schedule. HM: WWE - 06/23, [...] per schedule. Cont f/u with Pulmo at [place] as per schedule. Cont f/u with Psych at [facility] as per schedule. Cont f/u with Gyne at [place] as per schedule. Educated pt about alarming [...] F/u as directed. Annual labs in 06/25. [email or web address] Not available 04/09/2024 14:37:51 Plan of Treatment Reminders Order Date Submit Date Provider Last Modified By Organization Details Last Modified Time Details Appointments None recorded. Lab noninvasive colorectal cancer DNA + occult blood screening, QL, stool 2023 024 Machine Talker (Cologuard Orders Only), [address], [address], [place], [address], 17:19:08 lipid panel, serum [address] (Lab), [address] [place], [address], 4 08:11:23 lipid panel, serum [address] (Lab), [address] [place], [address], 08:30:44 Referral neurologist referral - Please call patient to schedule an appointment . Thank you. 2023 024 [email or web address] [facility], [address] [facility], [place], [address], 08:52:35 cardiologis t referral - Please call patient to schedule an appointment . Thank you. 2023 024 [email or web address] [facility] Referral Fax Line, [address], [address], [place], [address], 07:47:52 pain management referral - Please call patient to schedule an appointment . Thank you. 2023 024 [email or web address] [facility], [address], [place], [address], 07:46:41 hematologis t referral - Multiple PEs, ex-smoker. Please call patient to schedule an appointment . Thank you. 2023 024 [email or web address] Matthew Whitman Nae TUCKER, [address] [place], [address], 08:54:02 gastroenter ologist referral - Patient has new onset intussuscep tion , found on CT 01/21, not present on CT 12/12. Diverticulo sis. Please call patient to schedule an appointment . Thank you. 2023 024 [email or web address] [facility], [address], [place], [address], 4 08:51:43 gastroenter ologist referral - Please call patient to schedule an appointment . 2023 024 [email or web address] Brenden Carlson MD, [address], [address], [place], [address], 4 08:35:15 Procedures None recorded. Surgeries None recorded. Imaging XR, hand, 3 or more view 2023 024 [email or web address] Not available 09:04:28 Medication Orders ipratropium 0.5 mg-albutero l 3 mg (2.5 mg base)/3 mL nebulizatio n soln 2023 [facility] #84788, [address] [facility], [place], [place], [id number], 4 12:05:29 albuterol sulfate HFA 90 mcg/actuati on aerosol inhaler 2023 [facility] #72594, [address], [place], [place], [id number], 4 12:05:29 furosemide 20 mg tablet 2023 [facility] #98656, [address], [place], [place], [id number], 4 12:05:30 omeprazole 40 mg capsule,del ayed release 2023 [facility] #11444, [address], [place], [place], [id number], 4 12:05:30 famotidine 40 mg tablet 2023 [facility] #92123, [address], [place], [place], [id number], 4 12:05:29 atorvastati n 10 mg tablet 2023 [facility] #86356, [address], [place], [place], [id number], 4 12:05:33 ipratropium 0.5 mg-albutero l 3 mg (2.5 mg base)/3 mL nebulizatio n soln 2023 [facility] #08605, [address], [place], [place], [id number], 4 16:00:21 Eliquis 5 mg tablet 2023 [facility] #45633, [address], [place], [place], [id number], 4 16:00:24 albuterol sulfate HFA 90 mcg/actuati on aerosol inhaler 2023 024 [facility] #85822, [address] [facility] [facility], [place], [place], [id number], 4 16:00:26 furosemide 20 mg tablet 2023 024 [facility] #97735, [address] [facility], [place], [place], [address], 4 16:00:26 gabapentin 600 mg tablet 2023 024 [facility] #51924, [address] [facility] [facility], [place], [place], [id number], 4 16:00:23 baclofen 20 mg tablet 2023 024 [facility] #03239, [address] [facility], [place], [place], [id number], 4 16:00:31 atorvastati n 10 mg tablet 2023 024 [facility] #06973, [address] [facility], [place], [place], [id number], 4 16:00:27 ergocalcife rol (vitamin D2) 1,250 mcg (50,000 unit) capsule 2023 024 [facility] #92689, [address] [facility], [place], [place], [id number], 4 16:00:29 omeprazole 40 mg capsule,del ayed release 2023 024 [facility] #85651, [address] [facility], [place], [place], [id number], 4 16:00:27 famotidine 40 mg tablet 2023 024 [facility] #95898, [address], [place], [place], [id number], 4 16:00:21 ipratropium 0.5 mg-albutero l 3 mg (2.5 mg base)/3 mL nebulizatio n soln 2023 [facility] #21128, [address], [place], [place], [id number], 4 10:22:20 Eliquis 5 mg tablet 2023 [facility] #27964, [address] [facility], [place], [place], [id number], 4 10:22:22 hydrocodone 5 mg-acetamin ophen 325 mg tablet 2023 [facility] #94663, [address] [facility] [facility], [place], [place], [id number], 4 10:22:59 albuterol sulfate HFA 90 mcg/actuati on aerosol inhaler 2023 024 [facility] #30085, [address] [facility] [facility], [place], [place], [id number], 4 10:23:13 furosemide 20 mg tablet 2023 024 [facility] #88489, [address] [facility] [facility], [place], [place], [id number], 4 10:46:07 atorvastati n 10 mg tablet 2023 024 [facility] #76251, [address] [facility], [place], [place], [id number], 4 10:22:22 gabapentin 300 mg capsule [email or web address] [address] [facility] #21181, [address] [facility] [facility], [place], [place], [id number], 4 16:01:49 ergocalcife rol (vitamin D2) 1,250 mcg (50,000 unit) capsule 2023 [facility] #60647, [address] [facility] [facility], [place], [place], [id number], 4 10:22:22 omeprazole 40 mg capsule,del ayed release 2023 024 [facility] #55616, [address] [facility] [facility], [place], [place], [id number], 4 10:22:24 famotidine 40 mg tablet 2023 024 [facility] #60477, [address] [facility], [place], [place], [id number], 4 10:22:21 docusate sodium 100 mg capsule 2023 024 [facility] #38253, [address] [facility] [facility], [place], [place], [id number], 4 14:26:23 phentermine 37.5 mg tablet 2023 024 [email or web address] [facility] #50715, [address] [facility], [place], [place], [id number], 4 10:13:02 diclofenac sodium 75 mg tablet,tarsha yed release 2023 024 [facility] #64146, [address] [facility] [facility], [place], [place], [id number], 4 10:36:23 atorvastati n 10 mg tablet 2023 024 [facility] #73185, [address] [facility], [place], [place], [id number], 4 10:32:43 phentermine 37.5 mg tablet 2023 024 [email or web address] [facility] #67340, [address] [facility], [place], [place], [id number], 4 10:13:02 ergocalcife rol (vitamin D2) 1,250 mcg (50,000 unit) capsule 2023 024 [facility] #85014, [address] [facility], [place], [place], [address], 4 10:32:39 omeprazole 40 mg capsule,del ayed release 2023 024 [facility] #02375, [address] [facility] [facility], [place], [place], [id number], 4 10:32:40 famotidine 40 mg tablet 2023 024 [facility] #61133, [address] [facility] [facility], [place], [place], [id number], 4 10:32:42 Patient TargetsNo targets recorded. Patient Instructions Encounter Date Encounter Id Patient Instructions Last Modified By Organization Details Last Modified Time 10/24/2023 [id number] learning about obesity [email or web address] Not available 10/24/2023 10:32:32 03/12/2024 [id number] learning about obesity [email or web address] Not available 03/12/2024 10:22:13 Thank you for [...] Medical Equipment needed: Billing Guidelines CPT code 32629- Transitional Care Management services with moderate medical decision complexity (uwrl-zd-[id number] visit within 14 days of discharge). CPT code 50514- Transitional Care Management services with high medical decision complexity (urve-fe-pjbl visit within 7 days of discharge). Not available 03/12/2024 09:52:22 03/31/2024 [id number] learning about obesity Not available 03/31/2024 16:00:11 [...] to discuss. Not available 03/31/2024 15:42:48 04/09/2024 [id number] Thank you for your visit to our [...] Not available 04/09/2024 11:46:58 Reason for Referral Conference Assistant Referral for Screening colonoscopy Please call patient to schedule an appointment. Referring Physician: Ang Patterson [facility], Encounter Date: 10/24/2023 Conference Assistant Referral for Intussusception of small intestine Patient has new onset intussusception , found on CT 01/21, not present on CT 12/12. Diverticulosis. Please call patient to schedule an appointment. Thank you. Referring Physician: Janneth Rogers [facility], Encounter Date: 01/29/2024 Multiple PEs, ex-smoker. Ple ase call patient to schedule an appointment. Thank you. Referring Physician: Ang Patterson [facility], Encounter Date: 03/12/2024 Pain Management Referral for Cervical spondylosis without myelopathy Please call patient to schedule an appointment. Thank you. Referring Physician: Ang Patterson [facility], Encounter Date: 03/31/2024 Van Owner Operator Referral for Dy spnea on exertion Please call patient to schedule an appointment. Thank you. Referring Physician: Ang Patterson [facility], Encounter Date: 03/31/2024 Neurologist Referral for Kory mor B/l UE tremors for last 1-2 weeks. Please call patient to schedule an appointment. Thank you. Referring Physician: Ang Patterson [facility], Encounter Date: 04/09/2024 Results Created Date Observation Date Name Description Value Unit Range Abnormal Flag Note LastModifiedBy Organization Detail LastModifiedTime 10/01/19 24 10/02/2023 HELIC OBACT ER PYLOR I AG, EIA, STOOL helicobacter pylori Ag, EIA, stool SEE NOTE HELIC OBACT ER PYLOR I AG, EIA, STOOL Micro Numbe r: [id number] Test Statu s: Final Speci men [...] Range : Not Detec leti Not Available [employer] [facility] [address], [place], [address], 10/02/2023 13:18:31 04/07/20 24 04/07/2024 COLOG UARD cologuard result reportable NEGATI VE negati ve normal NEGAT JAMEY TEST RESUL T. A negat jamey Colog uard resul t indic ates a low likel ihood that a color ectal cance r (CRC) or advan james adeno ma (colton omato us polyp s with more advan james pre-m align ant featu res) is prese nt. The [facility] e that a perso n with a [...] of 10,00 0 indiv idual s at [place] risk for color ectal cance r who were scree harmete with both Colog uard and colon oscop [...] asymp tomat ic indiv idual s at [place] risk for color ectal cance r. Follo wing a negat jamey Colog uard resul t, the Ameri can Cance r Socie ty and U.S. Multi -Soci ety Task Force scree audra guide lines recom mend a Colog uard re-sc tayler rea inter mariana of 3 years . Refer ences : Kolby can Cance r Socie ty Guide line for Color ectal Cance r Scree audra: https ://anitha w.can cer.o rg/ca ncer/ colon -rect al-ca ncer/ detec tion- diagn osis- stagi ng/ac s-rec ommen datio ns.ht ml.; Scott DK, Henna CASTILLO, Marely adamson JK, Color ectal Cance r Scree audra: Recom menda tions for Physi cians and Patie nts from the U.S. Multi -Soci ety Task Force on Color ectal Cance r Scree audra , Lisa coombs rolog y 2017; 112:1 016-1 030. TEST DESCR IPTIO N: [place] site algor ithmi c genesis sis of [...] years or older , who are at [facility] for color ectal cance r (CRC) . Colog uard has been appro rohan for use by the U.S. FDA. The perfo rmanc e of Colog uard was estab lishe d in a cross secti onal study of [facility] adult s aged 50-84 . Colog uard [...] study of 0 indiv idual s at [place] risk for color ectal cance r [...] ution s can be found at www.c rajendrau veronica.c om. Not Available [facility] (Cologuard Orders Only) [address], [place], [address], 04/11/2024 17:19:08 12/13/19 24 12/13/2023 CT, abdom en + pelvi s, w/ contr ast No observ ation record ed. [place] [address], [place], [address], 12/23/2023 09:42:22 12/30/19 24 12/30/2023 CT, cervi bimal spine , w/o contr ast No observ ation record ed. [email or web address] [address], [place], [address], 12/30/2023 14:14:10 12/30/19 24 12/30/2023 XR, lumbo sacra l spine , 2 or 3 view No observ ation record ed. [email or web address] [address], [place], [address], 12/30/2023 14:14:21 01/22/20 24 01/22/2024 XR, chest No observ ation record ed. [email or web address] [address] [address], [place], [address], 01/22/2024 11:16:05 01/22/20 24 01/22/2024 LDCT, chest , for lung cance r scree audra No observ ation record ed. [place] [address], [place], [address], 01/22/2024 17:06:54 01/22/20 24 01/22/2024 CT, angio gram, chest , w/ contr ast No observ ation record ed. [place] [address], [place], [address], 03/12/2024 11:08:31 02/24/20 24 02/24/2024 US, doppl er echoc ardio gram No observ ation record ed. [place] [address], [place], [address], 03/12/2024 10:02:16 03/25/20 24 03/25/2024 XR, chest , 2 view No observ ation record ed. [place] [address], [place], [address], 03/31/2024 15:49:25 03/25/20 24 03/25/2024 CT, angio gram, chest , w/ contr ast No observ ation record ed. [address], [place], [address], 03/31/2024 15:49:25 04/02/20 24 04/02/2024 CT, brain , w/o contr ast No observ ation record ed. [address], [place], [address], 04/09/2024 11:57:47 04/02/20 24 04/02/2024 XR, chest No observ ation record ed. [address], [place], [address], 04/09/2024 11:57:47 04/29/20 24 04/08/2024 imagi ng/di agnos tic resul t No observ ation record ed. [address], [place], [address], 04/29/2024 09:51:53 Result Notes None recorded. Problems Name Problem SNOMED Code Status Onset Date Resolution Date Notes Provider Name and Address Organization Details Recorded Time Depressive disorder 30987043 Active 2022 Ang Patterson MD [address], [place], [address], [employer] 3 15:00:33 Anxiety disorder 560056525 Active 2022 Ang Patterson MD [address], [place], [address], [employer] 3 15:00:39 Posttraumat ic stress disorder 13751508 Active 2022 Agn Patterson MD [address], [place], [address], [employer] 3 15:00:45 Obesity 895862546 Active 2022 Ang Patterson MD [address], [place], [address], [employer] 3 15:01:02 Chronic neck pain 0682067552799 Active 2022 Ang Patterson MD [address], [place], [address], [employer] 3 15:03:12 Chronic low back pain 135430338 Active 2022 Ang Patterson MD [address], [place], [address], [employer] 3 15:03:20 Cervical spondylosis without myelopathy 397622398 Active 2022 Ang Patterson MD [address], [address], [place], [address], [employer] 3 15:17:42 Ex-smoker 9508127 Active 2022 Ang Patterson MD [address], [address], [place], [address], [employer] 3 15:17:55 Degeneratio n of cervical interverteb ral disc 27840734 Active 2022 Ang Patterson MD [address], [place], [address], [employer] 3 14:38:13 Otalgia of right ear 1297991586 Active 2022 Ang Patterson MD [address], [address], [place], [address], [employer] 3 09:56:32 Chronic idiopathic constipatio n 23918183 Active 2022 Ang Patetrson MD [address], [place], [address], [employer] 3 09:58:26 Gastroesoph ageal reflux disease without esophagitis 723524456 Active 2022 Ang Patterson MD [address], [place], [address], [employer] 3 09:59:58 Xerostomia 70951836 Active 2022 Ang Patterson MD [address], [place], [address], [facility] [place] [employer] [facility] 3 10:05:03 Anemia 972909684 Active 2022 Ang Patterson MD [address], [place], [address], [facility] [address] [facility] [place] [employer] [facility] 3 14:59:07 Vitamin D deficiency 11350391 Active 2023 Ang Patterson MD [address], [place], [address], [facility] [place] [employer] [facility] 4 10:31:01 Hyperlipide ana 31260611 Active 2023 Ang Patterson MD [address], [place], [address], [facility] [address] [place] [employer] [facility] 4 10:31:30 Pain of bilateral hands 5192252126596 9109 Active 2023 Ang Patterson MD [address], [place], [address], [facility] [address] [facility] [employer] [facility] 4 10:34:43 Intussuscep tion of small intestine 221604917 Active 2023 SHIRA Mckeon [address], [place], [address], [facility] [address] [facility] [employer] [facility] 4 14:12:52 Pulmonary embolism 78520251 Active 2023 Ang Patterson MD [address], [place], [address], [facility] [place] [employer] [facility] 4 10:05:37 Pulmonary embolism with pulmonary infarction 7160961802344 Active 2023 Ang Patterson MD [address], [place], [address], [facility] [address] [facility] 4 10:13:28 Dyspnea on exertion 17107169 Active 2023 Ang Patterson MD [address], [place], [address], [facility] 4 15:57:53 Tremor 71817427 Active 2023 Ang Patterson MD [address], [facility] [address], [place], [address], [facility] 4 11:59:25 Problem Notes None recorded. Procedures Surgical History Date Name Laterality Status Provider Name and Address Organization Details Recorded Time 03/31/2024 Transition al_Care_Ma nagement completed Alexx [facility] 03/31/2024 15:42:49 03/12/2024 Transition al_Care_Ma nagement completed [facility] 03/12/2024 09:52:22 Imaging Results None recorded. Procedure [...] Details Last Updated DateTime 10/24/2023 32.5 kg/m2 96064.86 g Ang Patterson MD [address], [address], [facility] [employer] 10/24/2023 10:40:55 Date Recorded Body height Body temperature Heart rate Respiratory rate Oxygen saturation Oxygen saturation in Arterial blood by Pulse oximetry Systolic And Diastolic Provider Name and Address Organization Details Last Updated DateTime 4 165.1 cm 98 [degF] 98 /min 20 /min 99 % 99 % 132/72 mm[Hg] Alexx [employer] [facility] [employer] 4 10:05:54 Date Recorded Body height Body temperature Heart rate Oxygen saturation Oxygen saturation in Arterial blood by Pulse oximetry Body mass index (BMI) Body weight Systolic And Diastolic Provider Name and Address Organization Details Last Updated DateTime 4 165.1 cm 98.7 [degF] 89 /min 98 % 98 % 33 kg/m2 61330.4 4 g 173/102 mm[Hg] Tana Brown MA [facility] [employer] [facility] 4 14:07:48 Date Recorded Heart rate Respiratory rate Oxygen saturation Oxygen saturation in Arterial blood by Pulse oximetry Inhaled oxygen flow rate Systolic And Diastolic Provider Name and Address Organization Details Last Updated DateTime 4 100 /min 24 /min 90 % 90 % 2 L/min 146/88 mm[Hg] Ang Ptaterson MD [address], [place], [address], [facility] 4 10:41:10 Date Recorded Body height Body mass index (BMI) Body weight Body temperature Provider Name and Address Organization Details Last Updated DateTime 03/12/2024 165.1 cm 30.5 kg/m2 91637.75 g 98.2 [degF] Alexx [employer] [facility] 03/12/2024 09:56:29 Date Recorded Heart rate Respiratory rate Oxygen saturation Oxygen saturation in Arterial blood by Pulse oximetry Inhaled oxygen flow rate Provider Name and Address Organization Details Last Updated DateTime 4 110 /min 22 /min 94 % 94 % 2 L/min Ang Patterson MD [address], [place], [address], [facility] 4 16:08:35 Date Recorded Body height Body mass index (BMI) Body weight Body temperature Systolic And Diastolic Provider Name and Address Organization Details Last Updated DateTime 03/31/2024 165.1 cm 32.1 kg/m2 62535.3 8 g 98.1 [degF] 144/90 mm[Hg] Alexx [employer] [facility] 4 15:47:52 Date Recorded Heart rate Oxygen saturation Oxygen saturation in Arterial blood by Pulse oximetry Provider Name and Address Organization Details Last Updated DateTime 04/09/2024 96 /min 96 % 96 % Ang Patterson MD [address], [employer], [place], [address], [facility] 04/09/2024 12:43:19 Date Recorded Body height Body mass index (BMI) Body weight Body temperature Respiratory rate Systolic And Diastolic Provider Name and Address Organization Details Last Updated DateTime 4 165.1 cm 31.8 kg/m2 11393.4 9 g 97.9 [degF] 16 /min 146/86 mm[Hg] Alexx [employer] 11:51:44 Social History Question Answer Notes LastModified by Organizat ion Details LastModified Time Tobacco Smoking Status Former Smoker Ang Patterson MD [address], [facility] [address], [place], [address], [facility] [employer] 04/23/2023 15:18:12 Do You Have An Advance [...] Or The Highest Degree You Have Received? [id number] Information not available 04/23/2023 Have There Been [...] Do You Have A Medical Power Of Surveyor'S Assistant? No Information not available 04/23/2023 How Many [...] anxious, or unable to sleep at night)? [id number] Information not available 04/23/2023 Family History Nothing [...] HAVE YOU BEEN HOSPITALIZED OR SEEN IN [facility] ER IN THE PAST YEAR ? [...] SNOMED-CT Code Diagnosis ICD10 Code Diagnosis Note [id number] Ang Patterson MD [facility] [address] [address] 04/23/2023 14:37:09 04/23/2023 15:24:12 Depressive disorder 57799851 F32.A Anxiety disorder 0713476 06 F41.9 Posttrauma tic stress disorder 05595603 F43.10 Obesity 039420778 E66.9 Ex-smoker 6649807 Z87.89 1 Chronic neck pain 001567 3197 107 M54.2 Chronic low back pain 27 5176648 M54.50 Cervical s pondylosis without myelopathy 758998708 M47.295 [id number] Ang Patterson MD [address] [address] 05/14/2023 17:26:14 05/14/2023 17:49:44 Chronic neck pain 4833561711 107 M54.2 Chronic low back pain 27 5866842 M54.50 Cervical s pondylosis without myelopathy 299316893 M47.812 Depressive disorder 3548 9007 F32.A Anxiety disorder 0105982 06 F41.9 Posttrauma tic stress disorder 30605522 F43.10 Obesity 199827256 E66.9 Ex-smoker 1771820 Z87.89 1 Degenerati on of cervical intervertebral disc 36270441 M50.30 [id number] Ang Patterson MD [address] [address] 06/04/2023 09:43:47 06/04/2023 10:27:29 Adult health examination 414949318 Z00.00 Chronic neck pain 055474 0435 107 M54.2 Chronic low back pain 27 9902157 M54.50 Obesity 740923259 E66.9 Ex-smoker 0189162 Z87.89 1 Otalgia of right ear 489 6733933 H92.01 Screening colonoscopy 44 9316082 Z12.11 Chronic id iopathic constipation 26074684 K59.04 Gastroesop hageal reflux disease without esophagitis 759967441 K21.9 Screening mammography 24 351956 Z12.31 Cervical s pondylosis without myelopathy 862521452 M47.812 Xerostomia 60141900 R68. 2 [id number] Ang Patterson MD [address] [address] 1 06/25/2023 14:39:36 06/25/2023 15:24:08 Chronic neck pain 6038817594 107 M54.2 Chronic low back pain 27 3104125 M54.50 Obesity 794883938 E66.9 Ex-smoker 9937739 Z87.89 1 Chronic id iopathic constipation 50576151 K59.04 Gastroesop hageal reflux disease without esophagitis 431455209 K21.9 Cervical s pondylosis without myelopathy 633182072 M47.812 Xerostomia 86664709 R68. 2 Anemia 706768780 D64.9 [id number] Ang Patterson MD [address] [address] 1 07/18/2023 15:27:03 07/18/2023 15:47:18 Chronic neck pain 6249491998 107 M54.2 Chronic low back pain 27 9094276 M54.50 Obesity 934198533 E66.9 [id number] Ang Patterson MD [address] [address] 1 08/22/2023 10:25:27 08/22/2023 10:43:48 Obesity 260980720 E66.9 Gastroesop hageal reflux disease without esophagitis 421411723 K21.9 Depressive disorder 3548 9007 F32.A [id number] Ang Patterson MD [address] [address] 10/24/2023 09:54:39 10/24/2023 10:45:37 Gastroesophageal reflux disease without esophagitis 636498217 K21.9 Obesity 852269492 E66.9 Vitamin D deficiency 347 10588 E55.9 Hyperlipidemia 37880602 E78.5 Pain of bi lateral hands 9802145877 9015372 M79.641 Screening colonoscopy 44 0042410 Z12.11 [id number] Ang Patterson MD [address] [address] 01/29/2024 13:56:02 01/29/2024 14:34:01 Intussusception of small intestine 192571143 K56.1 Chronic id iopathic constipation 85544096 K59.04 Obesity 976814576 E66.9 [id number] Ang Patterson MD [address] [address] 03/12/2024 09:48:48 03/12/2024 11:12:17 Vitamin D deficiency 17312997 E55.9 Hyperlipidemia 79171661 E78.5 Gastroesop hageal reflux disease without esophagitis 730670635 K21.9 Obesity 552440527 E66.9 Pain of bi lateral hands 6458086570 0765053 M79.641 Hospital i npatient stay within past 30 days 4341853297 106 Z76.89 Transition of care 30987 68944 105 Z75.8 Pulmonary embolism 75905 003 I26.99 Cervical s pondylosis without myelopathy 814976645 M47.812 Pulmonary embolism with pulmonary infarction 4477730195 102 I26.99 [id number] Ang Patterson MD [place] 940414-[address] 1 03/31/2024 15:36:12 03/31/2024 16:29:17 Transition of care 9766560222 105 Z75.8 Pulmonary embolism 13594 003 I26.99 Vitamin D deficiency 347 43987 E55.9 Hyperlipidemia 08004502 E78.5 Gastroesop hageal reflux disease without esophagitis 683027271 K21.9 Obesity 142135747 E66.9 Pain of bi lateral hands 9204853068 2531960 M79.641 Cervical s pondylosis without myelopathy 524732613 M47.812 Pulmonary embolism with pulmonary infarction 9021212534 102 I26.99 Dyspnea on exertion 6084 5006 R06.09 Screening for malignant neoplasm of colon 742538606 Z12.11 [id number] Ang Patterson MD [place] [address]-144 1 04/09/2024 11:38:36 04/09/2024 14:39:32 Transition of care 2797987934 105 Z75.8 Pulmonary embolism 10426 003 I26.99 Vitamin D deficiency 347 75888 E55.9 Hyperlipidemia 95607801 E78.5 Gastroesop hageal reflux disease without esophagitis 806026077 K21.9 Obesity 287879255 E66.9 Pain of bi lateral hands 6567359802 7078595 M79.641 Cervical s pondylosis without myelopathy 262688807 M47.812 Pulmonary embolism with pulmonary infarction 9380492888 102 I26.99 Dyspnea on exertion 6084 5006 R06.09 Tremor 89036991 R25.1 Hospital i npatient stay within past 30 days 8355680062 106 Z76.89 Health Concerns Section Related Observation LastModified by Organization Detai ls LastModified Time None Recorded Concern Status LastModified by Organization Details LastModified Time None Recorded Advance Directives Directive N: Payers Insurance Date Sequence Insurance Name Policy Number Policy Walsh Covered Member ID Walsh Member ID Guarantor Name 03/31/2024 1 [facility] (MEDICAID REPLACEMENT - HMO) [id number] Anatestela Hannahchristianne [id number] Anat Hannahchristianne 12/26/2023 1 *SELF PAY* Ka rla Camdenchristianne 03/30/2024 1 *SELF PAY* Ka rla Camdenchristianne 03/31/2024 1 [facility] (MEDICAID REPLACEMENT - HMO) [id number] Anat Camdenchristianne [id number] Anat Camdenchristianne 03/31/2024 2 [place] [facility] Anat Phelan [id number] Anat Camdenchristianne 03/31/2024 1 [place] Anat Phelan [id number] Anat Phelan 03/31/2024 2 [place] Anat Phelan [id number] Anat Camdenchristianne 03/31/2024 2 [place] Anat Phelan [id number] Anat Camdenchristianne 01/05/2025 1 [place] Anat Phelan [id number] Anat Phelan 03/31/2024 2 [place] [employer] [facility] [employer] - [employer]RECTIONS Anat Phelan [id number] Anat Phelan Notes Date Note Type Note [...] PTSD and is f/u with Psych at [facility] for it. Pt is on meds by them and is doing overall well with it. Denies any mood swings/SI/HI. Pt was f/u with Endo at [facility] and is on chronic Prednisone from them for last couple years. Ang Patterson MD [address], [facility] [address], [place], [address], [employer] [facility] [employer] [facility] 10/24/2023 10:42:51 01/29/2024 text/html Anat alvarez [...] with case managment. SHIRA Mckeon [address], [place], [address], [place] [employer] 01/29/2024 14:33:48 03/12/2024 text/html Hospital fuv:Pt has some insurance issues going on. Pt was admitted to [facility] on 02/22/24 due to not feeling well. Pt was found to have Pneumonia, PE, pulmonary infarction, pulmonary edema. Pt has finished her antibiotics and she is on Eliquis and Byers. Pt is needing refill on them. Pt will be seeing Pulmo at [place] in few weeks. Pt has home O2 [...] PTSD and is f/u with Psych at [facility] for it. Pt is on meds by them and is doing overall well with it. Denies any mood swings/SI/HI. Pt was f/u with Endo at [facility] and is on chronic Prednisone from them for last couple years. Ang Patterson MD [address] [place] [address], [facility] [address], [place], [address], [employer] 03/12/2024 11:10:25 03/31/2024 text/html Hospital fuv: Pt was seen in ED again on 03/25/24 due to SOB and chest pain and got work up done and was found to have Pneumonia. So pt was d/c on Z-jeanmarie and hydrocodone from ED. Pt has finished Z-jeanmarie and is feeling much better now. No fever/chills/n/v/d/sp utum. Pt will be seeing Pulmo at [place] on 04/08/24. Pt has home O2 set up done already and she has with her. Pt was admitted to [facility] on 02/22/24 due to not feeling well. Pt was found to have Pneumonia, PE, pulmonary infarction, pulmonary edema. Pt has finished her antibiotics and she is on Eliquis and Byers. Pt is needing refill on them. Pt [...] PTSD and is f/u with Psych at [facility] for it. Pt is on meds by them and is doing overall well with it. Denies any mood swings/SI/HI. Pt was f/u with Endo at [facility] and is on chronic Prednisone from them for last couple years. Ang Patterson MD [address] [place] [address], [place], [address], [place] [facility] [employer] 03/31/2024 16:13:31 04/09/2024 text/html Hospital fuv: Pt [...] body pain and she is asking for Byers. Pt is not taking her Gabapentin. Pt was seen couple weeks ago and was given Byers by me # 40 on 03/21/24 and [...] week. Pt is f/u with Pulmo at [place] for her Pneumonia, PE and chronic hypoxia and is on meds by them. Pt has home O2 set up for her home. Pt was admitted to [facility] on 02/22/24 due to not feeling well. Pt was found to have Pneumonia, PE, pulmonary infarction, pulmonary edema. Pt has finished her antibiotics and she is on Eliquis and Byers. Pt is needing refill on them. Pt [...] PTSD and is f/u with Psych at [facility] for it. Pt is on meds by them and is doing overall well with it. Denies any mood swings/SI/HI. Pt was f/u with Endo at [facility] and is on chronic Prednisone from them for last couple years. Ang Patterson MD [address] [facility], [facility] [address], [place], [address], [facility] [employer] 04/09/2024 14:38:39 OBGyn Episode No OBEpisode recorded.
[2025-03-09 10:43] VITALS: BP 125/72; PULSE 65; RESP 16; O2SAT 99
--- NOTE | 2025-03-09 10:57 | WPDHPUPDATE1 ---
History and Physical Update Update Date/Time: 03/09/25 10:57 History and Physical has been reviewed, including an updated exam of the patient. There are NO changes in the patient's condition. Risks, benefits, and alternatives have been discussed and questions answered. Patient agrees to proceed with procedure.
--- NOTE | 2025-03-09 11:23 | P.OP_ITS ---
Procedure Note - Detailed Date of Procedure 03/09/25 Pre-op Diagnosis Lumbosacral spondylosis, chromnic low back pain Post-op Diagnosis Same Procedure Performed Diagnostic Bilateral Lumbar Medial Branch/Dorsal Ramus Blocks at L3, L4, L5 Treating the Bilateral L4-5, L5-S1 Facet Joints Under Fluoroscopic Guidance and with Contrast Control. (4 levels blocked). Surgeon Bin Mcdonald MD Recruiting Scheduler None. Anesthesia Local Description of Procedure INFORMED CONSENT: Risks, benefits and alternatives to the procedure were discussed in detail with the patient who expressed explicit understanding and consent to proceed. Patient was informed verbally and in written form regarding the risks associated with the procedure including the low risk of serious infection, bleeding/bruising, allergic reaction, nerve or organ injury, paralysis, procedural site pain or discomfort, worsening pain and/or mobility, failure to treat and/or disfigurement. The patient expressed explicit understanding and consent to proceed. All materials required for the procedure were available prior to procedure start. Site and side were marked prior to procedure and confirmed in the presence of the patient. PROCEDURE IN DETAIL: The patient was brought to the procedural suite and placed in the prone position. Patient was made comfortable with use of pillows under the head/chest, hips and ankles. Skin overlying the injection site on the affected side(s) was prepared broadly with ChloraPrep applicator and draped in a sterile manner. Aseptic technique was used throughout. The endplates of the vertebral bodies at the site(s) of interest were aligned in the AP view. Ipsi lateral oblique angulation was utilized to optimize visualization of the intersection between the superior articulating process and transverse process at each target site. Local anesthesia was established by infiltration with approximately 5 mL of 1% lidocaine via a 1-1/2 inch 27-gauge needle. A 25-gauge 3.5 inch Quincke spinal needle was advanced until the needle tip contacted periosteum at the target site, right L3. Lateral view was utilized to confirm the appropriate placement of the needle tip just anterior to the facet line and superior to the pedicle. In the Lateral view, 0.25 mL of Omnipaque 300 contrast medium was injected after negative aspiration for CSF, blood or other bodily fluid, showing appropriate extra-articular spread of contrast without evidence of intravascular, foraminal or intrathecal placement. A 0.5 mL solution of 0.5% PF bupivacaine was injected after negative repeat aspiration. Appropriate spread of the injectate was confirmed with washout of previously injected contrast. No parasthesias were elicited. Needle was removed completely intact without difficulty. The same exact procedure was repeated for all remaining levels on the ipsilateral side, right L4, L5 medial branches/dorsal ramus, modified as necessary to accommodate for the new target location with identical findings and results and no evidence of complication. The same exact procedure was repeated for all remaining levels on the contralateral side, left L3, L4, L5 medial branches/dorsal ramus, modified as necessary to accommodate for the new target location with identical findings and results and no evidence of complication. Images were saved and documented in the patient chart. Patient's skin was cleaned and sterile bandage applied. The patient tolerated the procedure well. The patient was transported to the recovery area in stable condition where they were observed for an appropriate amount of time prior to discharge, without evidence of complication. Patient was instructed on the appropriate completion of a pain diary over the next 12-24 hours. The patient was instructed to avoid excessive activity for the next 48 hours, including climbing and frequent use of stairs. Showers only for 48 hours. They were instructed not to drive or operate heavy machinery for 24 hours. They are to monitor for severe headaches, fevers, chills, night sweats, erythema/swelling at the site or any other signs of infection, bleeding/bruising, bowel or bladder changes as well as new pain, weakness or numbness in the upper or lower extremity. Should they notice these changes, they are instructed to call our office immediately or report directly to the nearest Emergency Department if no answer or if after posted office hours. COMPLICATIONS: None COMMENTS: None CONTRAST WASTED: 28.5mL Omnipaque 300. Complications No immediate complications Condition Stable Disposition Same day [facility] Billing Surgery - Charge Forward: Surgery Billing
[2025-03-09 11:36] VITALS: BP 139/68; PULSE 69; RESP 14; O2SAT 97
[2025-03-09 11:42] VITALS: BP 139/65; PULSE 72; RESP 16; O2SAT 98
[2025-03-09 11:49] VITALS: BP 135/64; PULSE 75; RESP 16; O2SAT 100
[2025-03-09] MEDS: BUPivacaine HCL 0.5% 10 ML AMP INFILTRATE (11:52)
[2025-03-09 11:59] VITALS: BP 129/81; PULSE 69; RESP 12; O2SAT 100
== END 2025-03-09 12:04 | disposition home or self-care (01) ==
PROVIDERS: PCP Family Medicine; Visit Provider Anesthesiology Pain Medicine
PROC: (CPT 64493; principal; 2025-03-09 10:50)
DX: M47.817 Spondylosis without myelopathy or radiculopathy, lumbosacral region (principal); M54.50 Low back pain, unspecified; G89.29 Other chronic pain
CPT/HCPCS: 64493; 64494 ×2; 64495 ×2; 99199

== ENCOUNTER 2025-03-29 01:42 | Day surgery (SDC) | payer OTHER, SELFPAY ==
[2025-03-24 10:40] VITALS: BMI 28.3
--- NOTE | 2025-03-24 10:47 | SUR.PREOP ---
Report to the Outpatient Waiting Room, entrance under the green pavilion located off [facility], at time _1230_ on date 03/29/25. Planned Procedure Time: 1330.? Time changes happen often and if your time is changed the preop area will call you the afternoon before. - You and your visitor will be asked to self-screen and do not enter if you have any COVID symptoms. Please call surgeon if you need to reschedule. - A mask is optional within the hospital at this time. Patients may have clear liquids (water, carbonated beverages, clear teas, apple juice) until 3 hours prior to surgery with a maximum of 20 ounces. - No food from midnight until time of surgery and no smoking, or chewing tobacco (or any form of nicotine). No chewing gum, candy or mints. - Infants may have breast milk until 4 hours before surgery, formula 6 hours prior to surgery. - Children will be allowed to drink immediately following surgery.? If applicable, please bring a bottle or sippy cup to assist with drinking. Juice, water, soda, and popsicles are readily available.? For infants on formula, please bring formula the day of surgery.? Pacifiers are allowed. Take only the following medications with a SIP of water on the morning of surgery: _ take morning meds as directed____ DO NOT STOP ANY OF YOUR OTHER PRESCRIPTION MEDICATIONS PRIOR TO SURGERY EXCEPT THE FOLLOWING Hold all vitamins and supplements for 3 days per anesthesiologist. Medications to discontinue per physician n/a Date to take last dose Please no make-up, nail canadian, hairspray, perfume, deodorant, or body powder the day of surgery.? No jewelry (including any body piercings) or valuables the day of surgery, leave them at home.? Please take a shower or bath the night before, or the morning of, surgery with an antibacterial soap.? Wear comfortable, loose fitting clothing.? Children are encouraged to wear pajamas. - Jewelry must be removed prior to entering the operating room.? Rings and piercings that are not removed may be cut off. - The hospital will not accept responsibility for valuables.? - Please leave all valuables, including medications, at home the day of surgery. If you are going home after surgery, a licensed charter coach driver must drive you home.? - NO public transportation without another adult if you receive anesthesia. - We recommend that an adult stay with you for 24 hours following discharge. - We also recommend that you do not drive, make important decision, drink alcoholic beverages, or take any drugs that were not prescribed by your health care provider for at least 24 hours after your discharge time. For Pediatric surgeries, we recommend two adults accompany the child home. Follow any additional instructions given to you from your surgeon. Telephone instructions given to and asked if any additional questions and then verbalized understanding. Patient advised to call surgeon office or pre surgery nurse liaison [phone] if any additional questions.
--- NOTE | ~2025-03-29 | XR_ITS ---
EXAMINATION: XR fluoroscopy no charge DATE: 03/29/2025 13:35 CDT INDICATION: BLOCKS BILATERAL L3, L4, L5 MEDIAL BRANCHES . TECHNIQUE: 10 fluoroscopic images of the lumbar spine were obtained during bilateral L3, L4, and L5 m edial branch blocks. Fluoroscopy exposure time was 55.7 seconds. Air Kerma 15.75 mGy. DAP 2.23 mGym2. COMPARISON: 03/09/2025 FINDINGS/IMPRESSION: Fluoroscopic documentation of bilateral L3, L4, and L5 medial branch blocks. Please refer to the oper ative note for complete procedural details. Reviewed, dictated and finalized at location K.
--- OUTSIDE RECORDS SUMMARY | 2025-03-29 01:45 | XMS_ITS | Clinical Summary ---
Author Organization [facility] Address [address] [place] [address] Care Team Providers Care Forging Dies Final Finisher Name Role Phone Kendrick Chacon MD Primary Care Provider [phone] Source Comments [facility],non-owned Affiliates and Associated Physician Practices is amultiple site organization consisting of ambulatory clinics and hospital sitesin [place], [place], [place] and [place]. This disclosure is being madepursuant to the Care Everywhere program and may not contain all information available regarding this patient. 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 Gender Identity Not on file Sexual Orientation [...] 04/18/2021 3:49 PM CDT Plan of Treatment Upcoming Encounters Date Type Department Care Team (Late st Contact Info) Description 05/13/2025 1:15 PM CDT Office Visit [facility] [place] [address] [place] [address] [facility] [address] [place] [address] Health Maintenance Due Date Last Done Comments [...] season) 2024 DEPRESSION SCREENING 09/02/2024 INFLUENZA VACCINE (#1) 2025 ZOSTER VACCINE (1 of 2) 2026 [...] patient's age to complete this topic Insurance [facility] SELF PAY NO INSURANCE Member Subscriber Plan / Payer (Ef fective for All Dates) Name:Anat Phelan Relation to Subscriber:Self Name:Anta Phelan Payer ID:Not on file Group ID:Not on file Type:Self Pay Address: [place], [place] Advance Directives Documents on File Type Date Recorded 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 [address] [place] [address] [facility] - General 04/03/21
--- OUTSIDE RECORDS SUMMARY | 2025-03-29 01:46 | XMS_ITS | Clinical Summary ---
Author Organization [facility] Address [address] [place] [address] Care Team Providers Care Outdoor Landscape Architect Name Role Phone Kendrick Chacon MD Unavailable [...] Description 01/20/2025 10:00 AM CDT Office Visit [facility] [address] 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 Does NOT exclude the possibility of recent exposure to HCV. Current interpretive data was last revised on 22 Blood 07/15/2024 12:4 9 PM COVER MACHINE OPERATOR 07/15/2024 1:25 PM COVER MACHINE OPERATOR us Jessie Sherwood MD LAB MICROBIOLOGY - GENERAL ORDERABLES Final Result ARAVIND SCHMITT [facility] Department [place] [address] from Last 3 Months or Most Recently Relevant to Health Maintenance [place] [address] [place] [address] [place] [address] Care Teams Outdoor Landscape Architect Relationship Specialty Start Date End Date Keven Gonzalez DO [address] [place] [address] PCP - General Family Medicine 05/29/24 Kendrick Chacon MD Emergency Medicine 04/27/20 Edy Yadav MD [address] [facility] [address] Consulting Physician Pain Management 04/28/21
--- OUTSIDE RECORDS SUMMARY | 2025-03-29 01:46 | XMS_ITS | Data Portability ---
Author Organization [facility] [employer], Main Office Address [address] [place] [address] Assessment Encounter Date Assessment Date Assessment LastModified [...] Cont f/u with Psych at [facility] as per schedule. Cont f/u with Gyne at [place] as per schedule. HM: WWE - 06/23, normal as per pt. Cont f/u with Gyne as per schedule. Mammo - 2 yrs ago. Ordered. Colonoscopy - Referred to GI. Flu - Pt declined. Tdap, Pneumo, Shingrix - At pharmacy/HD. F/u in 2 months. Lipids in 01/23. Annual labs in 06/25. [email or web address] Not available 10/24/2023 10:42:23 03/12/2024 03/12/2024 48 [...] Pt will be calling her Pulmo at [place] and see if she can be seen sooner. Pt declined for referral to Cardio. All meds verified with pt. [place] 5/325 # 40 given today until she can see Flotation Tender. Meds as directed. Good liquid and fiber intake explained. Diet and exercise explained in detail. BP diary education given and call us if any concerns. F/u with PT as per schedule. F/u with GI as per schedule. Cont f/u with Pulmo at [place] as per schedule. Cont f/u with Psych at [facility] as per schedule. Cont f/u with Gyne at [place] as per schedule. HM: WWE - 06/23, normal as per pt. Cont f/u with Gyne as per schedule. Mammo - 2 yrs ago. Ordered. Colonoscopy - Referred to GI. Flu - Pt declined. Tdap, Pneumo, Shingrix - At pharmacy/HD. F/u in 1 month. Lipids before next visit. Annual labs in 06/25. [email or web address] Not available 03/12/2024 11:09:21 03/31/2024 03/31/2024 48 [...] be seeing her Pulmo on 04/08/24 at [place]. Will refer pt to Cardio, Pain clinic. [...] per schedule. Cont f/u with Pulmo at [place] as per schedule. Cont f/u with Psych at [facility] as per schedule. Cont f/u with Gyne at [place] as per schedule. HM: WWE - 06/23, normal as per pt. Cont f/u with Gyne as per schedule. Mammo - 2 yrs ago. Ordered. Colonoscopy - Referred to GI. Cologuard ordered. Flu - Pt declined. Tdap, Pneumo, Shingrix - At pharmacy/HD. F/u in 1-2 months. Annual labs in 06/25. [email or web address] Not available 03/31/2024 16:12:56 04/09/2024 04/09/2024 48 [...] per schedule. Cont f/u with Pulmo at [place] as per schedule. Cont f/u with Psych at [facility] as per schedule. Cont f/u with Gyne at [place] as per schedule. Educated pt about alarming [...] F/u as directed. Annual labs in 06/25. [email or web address] Not available 04/09/2024 14:37:51 Plan of Treatment Reminders Order Date Submit Date Provider Last Modified By Organization Details Last Modified Time Details Appointments None recorded. Lab noninvasive colorectal cancer DNA + occult blood screening, QL, stool 2023 024 [facility] (Cologuard Orders Only), [address], [address], [place], [address], 17:19:08 lipid panel, serum [address] (Lab), [address] [place], [address], 4 08:11:23 lipid panel, serum [address] (Lab), [address] [place], [address], 08:30:44 Referral neurologist referral - Please call patient to schedule an appointment . Thank you. 2023 024 [email or web address] [facility] - Neurology, [address] [facility], [place], [address], 08:52:35 cardiologis t referral - Please call patient to schedule an appointment . Thank you. 2023 024 [email or web address] [facility] Referral Fax Line, [address] [facility], [address], [place], [address], 07:47:52 pain management referral - Please call patient to schedule an appointment . Thank you. 2023 024 [email or web address] [facility], [address], [place], [address], 07:46:41 hematologis t referral - Multiple PEs, ex-smoker. Please call patient to schedule an appointment . Thank you. 2023 024 [email or web address] Matthew Whitman Nae TUCKER, [address] [place], [address], 08:54:02 gastroenter ologist referral - Patient has new onset intussuscep tion , found on CT 01/21, not present on CT 12/12. Diverticulo sis. Please call patient to schedule an appointment . Thank you. 2023 024 [email or web address] [facility] Gastroenter[facility], [id number], [place], [address], 4 08:51:43 gastroenter ologist referral - Please call patient to schedule an appointment . 2023 024 [email or web address] Brenden Carlson MD, [address] [facility], [address], [place], [address], 4 08:35:15 Procedures None recorded. Surgeries None recorded. Imaging XR, hand, 3 or more view 2023 024 [email or web address] Not available 09:04:28 Medication Orders ipratropium 0.5 mg-albutero l 3 mg (2.5 mg base)/3 mL nebulizatio n soln 2023 [facility] #63930, [address] [facility], [place], [place], [id number], 4 12:05:29 albuterol sulfate HFA 90 mcg/actuati on aerosol inhaler 2023 [facility] #14653, [address], [place], [place], [id number], 4 12:05:29 furosemide 20 mg tablet 2023 [facility] #34696, [address], [place], [place], [id number], 4 12:05:30 omeprazole 40 mg capsule,del ayed release 2023 [facility] #07778, [address], [place], [place], [id number], 4 12:05:30 famotidine 40 mg tablet 2023 [facility] #95404, [address], [place], [place], [id number], 4 12:05:29 atorvastati n 10 mg tablet 2023 [facility] #89597, [address], [place], [place], [id number], 4 12:05:33 ipratropium 0.5 mg-albutero l 3 mg (2.5 mg base)/3 mL nebulizatio n soln 2023 [facility] #42557, [address], [place], [place], [id number], 4 16:00:21 Eliquis 5 mg tablet 2023 [facility] #50343, [address], [place], [place], [id number], 4 16:00:24 albuterol sulfate HFA 90 mcg/actuati on aerosol inhaler 2023 024 [facility] #97058, [address] [facility], [place], [place], [id number], 4 16:00:26 furosemide 20 mg tablet 2023 024 [facility] #28435, [address] [facility], [place], [place], [id number], 4 16:00:26 gabapentin 600 mg tablet 2023 024 [facility] #10579, [address] [facility], [place], [place], [id number], 4 16:00:23 baclofen 20 mg tablet 2023 024 [facility] #71529, [address] [facility], [place], [place], [id number], 4 16:00:31 atorvastati n 10 mg tablet 2023 024 [facility] #25760, [address] [facility], [place], [place], [id number], 4 16:00:27 ergocalcife rol (vitamin D2) 1,250 mcg (50,000 unit) capsule 2023 024 [facility] #82469, [address] [facility], [place], [place], [id number], 4 16:00:29 omeprazole 40 mg capsule,del ayed release 2023 024 [facility] #18777, [address] [facility], [place], [place], [id number], 4 16:00:27 famotidine 40 mg tablet 2023 024 [facility] #31895, [address], [place], [place], [id number], 4 16:00:21 ipratropium 0.5 mg-albutero l 3 mg (2.5 mg base)/3 mL nebulizatio n soln 2023 [facility] #38511, [address], [place], [place], [id number], 4 10:22:20 Eliquis 5 mg tablet 2023 [facility] #84009, [address] [facility], [place], [place], [id number], 4 10:22:22 hydrocodone 5 mg-acetamin ophen 325 mg tablet 2023 [facility] #44445, [address] [facility], [place], [place], [id number], 4 10:22:59 albuterol sulfate HFA 90 mcg/actuati on aerosol inhaler 2023 024 [facility] #53046, [address] [facility], [place], [place], [id number], 4 10:23:13 furosemide 20 mg tablet 2023 024 [facility] #05538, [address] [facility], [place], [place], [id number], 4 10:46:07 atorvastati n 10 mg tablet 2023 024 [facility] #15431, [address] [facility], [place], [place], [id number], 4 10:22:22 gabapentin 300 mg capsule [email or web address] [facility] [address] [facility] #76317, [address] [facility], [place], [place], [id number], 4 16:01:49 ergocalcife rol (vitamin D2) 1,250 mcg (50,000 unit) capsule 2023 [facility] #36511, [address] [facility], [place], [place], [id number], 4 10:22:22 omeprazole 40 mg capsule,del ayed release 2023 024 [facility] #61596, [address] [facility], [place], [place], [id number], 4 10:22:24 famotidine 40 mg tablet 2023 024 [facility] #73003, [address] [facility], [place], [place], [id number], 4 10:22:21 docusate sodium 100 mg capsule 2023 024 [facility] #39380, [address] [facility], [place], [place], [id number], 4 14:26:23 phentermine 37.5 mg tablet 2023 024 [email or web address] [facility] #02071, [address] [facility], [place], [place], [id number], 4 10:13:02 diclofenac sodium 75 mg tablet,tarsha yed release 2023 024 [facility] #18280, [address] [facility], [place], [place], [id number], 4 10:36:23 atorvastati n 10 mg tablet 2023 024 [facility] #15169, [address] [facility], [place], [place], [id number], 4 10:32:43 phentermine 37.5 mg tablet 2023 024 [email or web address] [facility] #70612, [address] [facility], [place], [place], [id number], 4 10:13:02 ergocalcife rol (vitamin D2) 1,250 mcg (50,000 unit) capsule 2023 024 [facility] #21592, [address] [facility], [place], [place], [id number], 4 10:32:39 omeprazole 40 mg capsule,del ayed release 2023 024 [facility] #60382, [address] [facility], [place], [place], [id number], 4 10:32:40 famotidine 40 mg tablet 2023 024 [facility] #53339, [address] [facility], [place], [place], [id number], 4 10:32:42 Patient TargetsNo targets recorded. Patient Instructions Encounter Date Encounter Id Patient Instructions Last Modified By Organization Details Last Modified Time 10/24/2023 [id number] learning about obesity [email or web address] Not available 10/24/2023 10:32:32 03/12/2024 [id number] learning about obesity Not available 03/12/2024 10:22:13 [...] Medical Equipment needed: Billing Guidelines CPT code 64745- Transitional Care Management services with moderate medical decision complexity (ufol-zg-dboc visit within 14 days of discharge). CPT code 89718- Transitional Care Management services with high medical decision complexity (mjld-cx-xwgl visit within 7 days of discharge). Not available 03/12/2024 09:52:22 03/31/2024 [id number] learning about obesity [email or web address] Not available 03/31/2024 16:00:11 Thank you for [...] to discuss. Not available 03/31/2024 15:42:48 04/09/2024 [id number] Thank you for your visit to our [...] Not available 04/09/2024 11:46:58 Reason for Referral Printing Table Worker Referral for Screening colonoscopy Please call patient to schedule an appointment. Referring Physician: Ang Patterson [facility], Encounter Date: 10/24/2023 Printing Table Worker Referral for Intussusception of small intestine Patient has new onset intussusception , found on CT 01/21, not present on CT 12/12. Diverticulosis. Please call patient to schedule an appointment. Thank you. Referring Physician: Janneth Rogers [facility], Encounter Date: 01/29/2024 Multiple PEs, ex-smoker. Ple ase call patient to schedule an appointment. Thank you. Referring Physician: Ang Patterson [facility], Encounter Date: 03/12/2024 Pain Management Referral for Cervical spondylosis without myelopathy Please call patient to schedule an appointment. Thank you. Referring Physician: Ang Patterson [facility], Encounter Date: 03/31/2024 Manager Financial Planning Referral for Dy spnea on exertion Please call patient to schedule an appointment. Thank you. Referring Physician: Ang Patterson [facility], Encounter Date: 03/31/2024 Neurologist Referral for Kory mor B/l UE tremors for last 1-2 weeks. Please call patient to schedule an appointment. Thank you. Referring Physician: Ang Patterson [facility], Encounter Date: 04/09/2024 Results Created Date Observation Date Name Description Value Unit Range Abnormal Flag Note LastModifiedBy Organization Detail LastModifiedTime 10/01/19 24 10/02/2023 HELIC OBACT ER PYLOR I AG, EIA, STOOL helicobacter pylori Ag, EIA, stool SEE NOTE HELIC OBACT ER PYLOR I AG, EIA, STOOL Micro Numbe r: [id number] Test Statu s: Final Speci men [...] Range : Not Detec leti Not Available [employer] [facility] [address], [place], [address], 10/02/2023 13:18:31 04/07/20 24 04/07/2024 COLOG UARD [...] of 10,00 0 indiv [place]ual s at [place] risk for color ectal cance r [...] asymp tomat ic indiv idual s at [place] risk for color ectal cance r. [...] 112:1 016-1 030. TEST DESCR IPTIO N: Costilla site algor ithmi c genesis sis of [...] years or older , who are at [facility] for color ectal cance r (CRC) . Colog uard has been appro rohan for use by the [place] FDA. The perfo rmanc e of Colog uard was estab lishe d in a cross secti onal study of [facility] adult s aged 50-84 . Colog [...] study of 0 indiv idual s at [place] risk for color ectal cance r [...] at www.c rajendrau veronica.c om. Not Available [employer] (Cologuard Orders Only) [address], [place], [address], 04/11/2024 17:19:08 12/13/19 24 12/13/2023 CT, abdom en + pelvi s, w/ contr ast No observ ation record ed. [place] [address], [place], [address], 12/23/2023 09:42:22 12/30/19 24 12/30/2023 CT, cervi bimal spine , w/o contr ast No observ ation record ed. [email or web address] [address], [place], [address], 12/30/2023 14:14:10 12/30/19 24 12/30/2023 XR, lumbo sacra l spine , 2 or 3 view No observ ation record ed. [address], [place], [address], 12/30/2023 14:14:21 01/22/20 24 01/22/2024 XR, chest No observ ation record ed. [email or web address] [address], [place], [address], 01/22/2024 11:16:05 01/22/20 24 01/22/2024 LDCT, chest , for lung cance r scree audra No observ ation record ed. [place] [address], [place], [address], 01/22/2024 17:06:54 01/22/20 24 01/22/2024 CT, angio gram, chest , w/ contr ast No observ ation record ed. [place] [address], [place], [address], 03/12/2024 11:08:31 02/24/20 24 02/24/2024 US, doppl er echoc ardio gram No observ ation record ed. [place] [address], [place], [address], 03/12/2024 10:02:16 03/25/20 24 03/25/2024 XR, chest , 2 view No observ ation record ed. [place] [address], [place], [address], 03/31/2024 15:49:25 03/25/20 24 03/25/2024 CT, angio gram, chest , w/ contr ast No observ ation record ed. [address], [place], [address], 03/31/2024 15:49:25 04/02/20 24 04/02/2024 CT, brain , w/o contr ast No observ ation record ed. [address], [place], [address], 04/09/2024 11:57:47 04/02/20 24 04/02/2024 XR, chest No observ ation record ed. [address], [place], [address], 04/09/2024 11:57:47 04/29/20 24 04/08/2024 imagi ng/di agnos tic resul t No observ ation record ed. [address], [place], [address], 04/29/2024 09:51:53 Result Notes None recorded. Problems Name Problem SNOMED Code Status Onset Date Resolution Date Notes Provider Name and Address Organization Details Recorded Time Depressive disorder 35424112 Active 2022 Ang Patterson MD [address], [place], [address], [facility] 3 15:00:33 Anxiety disorder 747430752 Active 2022 Ang Patterson MD [address], [place], [address], [facility] 3 15:00:39 Posttraumat ic stress disorder 00547800 Active 2022 Ang Patterson MD [address], [place], [address], [facility] 3 15:00:45 Obesity 427162004 Active 2022 Ang Patterson MD [address], [place], [address], [facility] 3 15:01:02 Chronic neck pain 6708960195235 Active 2022 Ang Patterson MD [address], [address], [place], [address], [facility] 3 15:03:12 Chronic low back pain 308776716 Active 2022 Ang Patterson MD [address], [address], [place], [address], [facility] 3 15:03:20 Cervical spondylosis without myelopathy 576109386 Active 2022 Ang Patterson MD [address], [address], [place], [address], [facility] 3 15:17:42 Ex-smoker 1176566 Active 2022 Ang Patterson MD [address], [address], [place], [address], [facility] 3 15:17:55 Degeneratio n of cervical interverteb ral disc 05217406 Active 2022 Ang Patterson MD [address], [address], [place], [address], [facility] 3 14:38:13 Otalgia of right ear 2089832496 Active 2022 Ang Patterson MD [address], [address], [place], [address], [facility] 3 09:56:32 Chronic idiopathic constipatio n 52056147 Active 2022 Ang Patterson MD [address], [address], [place], [address], [facility] 3 09:58:26 Gastroesoph ageal reflux disease without esophagitis 571701273 Active 2022 Ang Patterson MD [address], [address], [place], [address], [facility] 3 09:59:58 Xerostomia 28847620 Active 2022 Ang Patterson MD [address], [address], [place], [address], [facility] [place] [employer] [facility] 3 10:05:03 Anemia 700736919 Active 2022 Ang Patterson MD [address], [address], [place], [address], [facility] [employer] [facility] [place] [facility] 3 14:59:07 Vitamin D deficiency 36712055 Active 2023 Ang Patterson MD [address], [address], [place], [address], [facility] [place] [employer] [facility] 4 10:31:01 Hyperlipide ana 63153711 Active 2023 Ang Patterson MD [address], [address], [place], [address], [facility] [employer] [facility] [place] [employer] [facility] 4 10:31:30 Pain of bilateral hands 7064836412138 9109 Active 2023 Ang Patterson MD [address], [address], [place], [address], [facility] [employer] [facility] [employer] [facility] 4 10:34:43 Intussuscep tion of small intestine 836861880 Active 2023 SHIRA Mckeon [address], [address], [place], [address], [facility] [employer] [facility] [employer] [facility] 4 14:12:52 Pulmonary embolism 68091089 Active 2023 Agn Patterson MD [address], [place], [address], [facility] [place] [employer] [facility] 4 10:05:37 Pulmonary embolism with pulmonary infarction 8838739791394 Active 2023 Ang Patterson MD [address], [place], [address], [facility] [employer] [facility] 4 10:13:28 Dyspnea on exertion 37263459 Active 2023 Ang Patterson MD [address], [place], [address], [facility] 4 15:57:53 Tremor 89177132 Active 2023 Ang Patterson MD [address], [facility] [address], [place], [address], [facility] 4 11:59:25 Problem Notes None recorded. Procedures Surgical History Date Name Laterality Status Provider Name and Address Organization Details Recorded Time 03/31/2024 Transition al_Care_Ma nagement completed Alexx [facility] 03/31/2024 15:42:49 03/12/2024 Transition al_Care_Ma nagement completed [facility] 03/12/2024 09:52:22 Imaging Results None recorded. Procedure [...] Details Last Updated DateTime 10/24/2023 32.5 kg/m2 18952.86 g Ang Patterson MD [address], [address], [facility] 10/24/2023 10:40:55 Date Recorded Body height Body temperature Heart rate Respiratory rate Oxygen saturation Oxygen saturation in Arterial blood by Pulse oximetry Systolic And Diastolic Provider Name and Address Organization Details Last Updated DateTime 4 165.1 cm 98 [degF] 98 /min 20 /min 99 % 99 % 132/72 mm[Hg] Alexx [employer] [facility] 4 10:05:54 Date Recorded Body height Body temperature Heart rate Oxygen saturation Oxygen saturation in Arterial blood by Pulse oximetry Body mass index (BMI) Body weight Systolic And Diastolic Provider Name and Address Organization Details Last Updated DateTime 4 165.1 cm 98.7 [degF] 89 /min 98 % 98 % 33 kg/m2 79839.4 4 g 173/102 mm[Hg] Tana Brown MA [facility] [employer] [facility] 4 14:07:48 Date Recorded Heart rate Respiratory rate Oxygen saturation Oxygen saturation in Arterial blood by Pulse oximetry Inhaled oxygen flow rate Systolic And Diastolic Provider Name and Address Organization Details Last Updated DateTime 4 100 /min 24 /min 90 % 90 % 2 L/min 146/88 mm[Hg] Ang Patterson MD [address], [place], [address], [facility] 4 10:41:10 Date Recorded Body height Body mass index (BMI) Body weight Body temperature Provider Name and Address Organization Details Last Updated DateTime 03/12/2024 165.1 cm 30.5 kg/m2 87825.75 g 98.2 [degF] Alexx [employer] [facility] 03/12/2024 09:56:29 Date Recorded Heart rate Respiratory rate Oxygen saturation Oxygen saturation in Arterial blood by Pulse oximetry Inhaled oxygen flow rate Provider Name and Address Organization Details Last Updated DateTime 4 110 /min 22 /min 94 % 94 % 2 L/min Ang Patterson MD [address] [facility], [place], [address], [facility] 4 16:08:35 Date Recorded Body height Body mass index (BMI) Body weight Body temperature Systolic And Diastolic Provider Name and Address Organization Details Last Updated DateTime 03/31/2024 165.1 cm 32.1 kg/m2 77367.3 8 g 98.1 [degF] 144/90 mm[Hg] Alexx [employer] [facility] 4 15:47:52 Date Recorded Heart rate Oxygen saturation Oxygen saturation in Arterial blood by Pulse oximetry Provider Name and Address Organization Details Last Updated DateTime 04/09/2024 96 /min 96 % 96 % Ang Patterson MD [address], [place], [address], [facility] 04/09/2024 12:43:19 Date Recorded Body height Body mass index (BMI) Body weight Body temperature Respiratory rate Systolic And Diastolic Provider Name and Address Organization Details Last Updated DateTime 4 165.1 cm 31.8 kg/m2 13036.4 9 g 97.9 [degF] 16 /min 146/86 mm[Hg] Alexx [employer] 11:51:44 Social History Question Answer Notes LastModified by Organizat ion Details LastModified Time Tobacco Smoking Status Former Smoker Ang Patterson MD [address], [facility] [address], [place], [address], [facility] [employer] 04/23/2023 15:18:12 Do You Have An Advance [...] Or The Highest Degree You Have Received? [id number] Information not available 04/23/2023 Have There Been [...] Do You Have A Medical Power Of Rounding Machine Operator? No Information not available 04/23/2023 How Many [...] anxious, or unable to sleep at night)? [id number] Information not available 04/23/2023 Family History Nothing [...] DIVERTICULITIS N CHICKENPOX N SLEEP APNEA N ALLERGIES/HAYFEVER N BACK INJECTIONS N INFECTIOUS DISEASE N HEART ARRHYTHMIA N PROSTATE N ESRD N INSOMNIA N HIGH CHOLESTEROL / HYPERLIPIDEMIA N EYE PROBLEMS N HYPERTHYROIDISM N PVD N EATING DISORDER N EDEMA N CHRONIC PAIN SYNDROME N CONSTIPATION N CAROTID BLOCKAGE N BACK / NECK PROBLEMS N HAVE YOU BEEN HOSPITALIZED OR SEEN IN [facility] IN THE PAST YEAR ? N [...] SNOMED-CT Code Diagnosis ICD10 Code Diagnosis Note [id number] Ang Patterson MD [facility] [address] [address] 04/23/2023 14:37:09 04/23/2023 15:24:12 Depressive disorder 41151975 F32.A Anxiety disorder 6254777 06 F41.9 Posttrauma tic stress disorder 96758857 F43.10 Obesity 874134625 E66.9 Ex-smoker 8477155 Z87.89 1 Chronic neck pain 997120 9258 107 M54.2 Chronic low back pain 27 6396936 M54.50 Cervical s pondylosis without myelopathy 184571936 M47.805 [id number] Ang Patterson MD [address] [address] 05/14/2023 17:26:14 05/14/2023 17:49:44 Chronic neck pain 7670348398 107 M54.2 Chronic low back pain 27 0579575 M54.50 Cervical s pondylosis without myelopathy 931931550 M47.812 Depressive disorder 3548 9007 F32.A Anxiety disorder 0184961 06 F41.9 Posttrauma tic stress disorder 66517694 F43.10 Obesity 298672790 E66.9 Ex-smoker 1718199 Z87.89 1 Degenerati on of cervical intervertebral disc 19237436 M50.30 [id number] Ang Patterson MD [address] [address] 1 06/04/2023 09:43:47 06/04/2023 10:27:29 Adult health examination 868299288 Z00.00 Chronic neck pain 600786 2438 107 M54.2 Chronic low back pain 27 3928508 M54.50 Obesity 453032476 E66.9 Ex-smoker 2351010 Z87.89 1 Otalgia of right ear 937 3684927 H92.01 Screening colonoscopy 44 0950355 Z12.11 Chronic id iopathic constipation 82391257 K59.04 Gastroesop hageal reflux disease without esophagitis 151415178 K21.9 Screening mammography 24 747976 Z12.31 Cervical s pondylosis without myelopathy 937377046 M47.812 Xerostomia 58988697 R68. 2 [id number] Ang Patterson MD [address] [address] 1 06/25/2023 14:39:36 06/25/2023 15:24:08 Chronic neck pain 3268349295 107 M54.2 Chronic low back pain 27 4351961 M54.50 Obesity 412640466 E66.9 Ex-smoker 8232663 Z87.89 1 Chronic id iopathic constipation 03252200 K59.04 Gastroesop hageal reflux disease without esophagitis 063349773 K21.9 Cervical s pondylosis without myelopathy 307669945 M47.812 Xerostomia 49520185 R68. 2 Anemia 135097501 D64.9 [id number] Ang Patterson MD [address] [address] 1 07/18/2023 15:27:03 07/18/2023 15:47:18 Chronic neck pain 7086950651 107 M54.2 Chronic low back pain 27 1699755 M54.50 Obesity 821126310 E66.9 [id number] Ang Patterson MD [address] [address] 1 08/22/2023 10:25:27 08/22/2023 10:43:48 Obesity 117932087 E66.9 Gastroesop hageal reflux disease without esophagitis 271752293 K21.9 Depressive disorder 3548 9007 F32.A [id number] Ang Patterson MD [address] [address] 1 10/24/2023 09:54:39 10/24/2023 10:45:37 Gastroesophageal reflux disease without esophagitis 637925636 K21.9 Obesity 696679088 E66.9 Vitamin D deficiency 347 41622 E55.9 Hyperlipidemia 03307530 E78.5 Pain of bi lateral hands 3757132245 3009497 M79.641 Screening colonoscopy 44 9483108 Z12.11 [id number] Ang Patterson MD [address] [address] 1 01/29/2024 13:56:02 01/29/2024 14:34:01 Intussusception of small intestine 873655895 K56.1 Chronic id iopathic constipation 49680492 K59.04 Obesity 741010742 E66.9 [id number] Ang Patterson MD [address] [address] 1 03/12/2024 09:48:48 03/12/2024 11:12:17 Vitamin D deficiency 20675706 E55.9 Hyperlipidemia 95280291 E78.5 Gastroesop hageal reflux disease without esophagitis 885515967 K21.9 Obesity 198200542 E66.9 Pain of bi lateral hands 4381871070 2710360 M79.641 Hospital i npatient stay within past 30 days 1838114506 106 Z76.89 Transition of care 27232 45445 105 Z75.8 Pulmonary embolism 68495 003 I26.99 Cervical s pondylosis without myelopathy 250767158 M47.812 Pulmonary embolism with pulmonary infarction 4466277163 102 I26.99 [id number] Ang Patterson MD [place] 297114-144 1 03/31/2024 15:36:12 03/31/2024 16:29:17 Transition of care 4055670410 105 Z75.8 Pulmonary embolism 91663 003 I26.99 Vitamin D deficiency 347 76120 E55.9 Hyperlipidemia 46321097 E78.5 Gastroesop hageal reflux disease without esophagitis 061423548 K21.9 Obesity 541541047 E66.9 Pain of bi lateral hands 0626641037 1894479 M79.641 Cervical s pondylosis without myelopathy 380099641 M47.812 Pulmonary embolism with pulmonary infarction 2519009519 102 I26.99 Dyspnea on exertion 6084 5006 R06.09 Screening for malignant neoplasm of colon 449122380 Z12.11 [id number] Ang Patterson MD [place] 64717294-144 1 04/09/2024 11:38:36 04/09/2024 14:39:32 Transition of care 7429112717 105 Z75.8 Pulmonary embolism 08740 003 I26.99 Vitamin D deficiency 347 11482 E55.9 Hyperlipidemia 22910654 E78.5 Gastroesop hageal reflux disease without esophagitis 299632176 K21.9 Obesity 100755792 E66.9 Pain of bi lateral hands 1250485283 9764960 M79.641 Cervical s pondylosis without myelopathy 461307328 M47.812 Pulmonary embolism with pulmonary infarction 3230679304 102 I26.99 Dyspnea on exertion 6084 5006 R06.09 Tremor 88366712 R25.1 Hospital i npatient stay within past 30 days 0587662044 106 Z76.89 Health Concerns Section Related Observation LastModified by Organization Detai ls LastModified Time None Recorded Concern Status LastModified by Organization Details LastModified Time None Recorded Advance Directives Directive N: Payers Insurance Date Sequence Insurance Name Policy Number Policy Walsh Covered Member ID Walsh Member ID Guarantor Name 03/31/2024 1 [facility] (MEDICAID REPLACEMENT - HMO) [id number] Anatestela Hannahchristianne [id number] Anat Hannahchristianne 12/26/2023 1 *SELF PAY* Ka rla Camdenchristianne 03/30/2024 1 *SELF PAY* Ka rla Camdenchristianne 03/31/2024 1 [facility] (MEDICAID REPLACEMENT - HMO) [id number] Anat Camdenchristianne [id number] Anat Camdenchristianne 03/31/2024 2 [place] [facility] Anat Phelan [id number] Anat Camdenchristianne 03/31/2024 1 [place] [facility] [place] Anat Phelan [id number] Anat Phelan 03/31/2024 2 [place] Anat Phelan [id number] Anat Camdenchristianne 03/31/2024 2 [place] Anat Phelan [id number] Anat Camdenchristianne 01/05/2025 1 [place] Anat Phelan [id number] Anat Phelan 03/31/2024 2 [place] [facility] Anat Phelan [id number] Anat Phelan Notes Date Note Type Note Provider Name and Address Organization Details Recorded Time 10/24/2023 text/html Pt is here for f/u on her other labs and wt loss. [...] is f/u with Psych at [facility] for it. Pt is on meds by them and is doing overall well with it. Denies any mood swings/SI/HI. Pt was f/u with Endo at [facility] and is on chronic Prednisone from them for last couple years. Ang Patterson MD [address], [place], [address], [place] 10/24/2023 10:42:51 01/29/2024 text/html Anat Phelan is a 48 year old female patient [...] SHIRA Mckeon [address], [place], [address], [place] 01/29/2024 14:33:48 03/12/2024 text/html Hospital fuv:Pt has some insurance issues going on. Pt was admitted to [facility] on 02/22/24 due to not feeling well. Pt was found to have Pneumonia, PE, pulmonary infarction, pulmonary edema. Pt has finished her antibiotics and she is on Eliquis and Donegal. Pt is needing refill on them. Pt will be seeing Pulmo at [facility] in few weeks. Pt has home O2 [...] is f/u with Psych at [facility] for it. Pt is on meds by them and is doing overall well with it. Denies any mood swings/SI/HI. Pt was f/u with Endo at [facility] and is on chronic Prednisone from them for last couple years. Ang Patterson MD [address] [place] [address], [facility] [address], [place], [address], [place] 03/12/2024 11:10:25 03/31/2024 text/html Hospital fuv: Pt was seen in ED again on 03/25/24 due to SOB and chest pain and got work up done and was found to have Pneumonia. So pt was d/c on Z-jeanmarie and hydrocodone from ED. Pt has finished Z-jeanmarie and is feeling much better now. No fever/chills/n/v/d/sp utum. Pt will be seeing Pulmo at [facility] on 04/08/24. Pt has home O2 set up done already and she has with her. Pt was admitted to [facility] on 02/22/24 due to not feeling well. Pt was found to have Pneumonia, PE, pulmonary infarction, pulmonary edema. Pt has finished her antibiotics and she is on Eliquis and Donegal. Pt is needing refill on them. Pt [...] is f/u with Psych at [facility] for it. Pt is on meds by them and is doing overall well with it. Denies any mood swings/SI/HI. Pt was f/u with Endo at [facility] and is on chronic Prednisone from them for last couple years. Ang Patterson MD [address] [place] [address], [place], [address], [facility] [employer] 03/31/2024 16:13:31 04/09/2024 text/html Hospital fuv: Pt [...] body pain and she is asking for Donegal. Pt is not taking her Gabapentin. Pt was seen couple weeks ago and was given Donegal by me # 40 on 03/21/24 and [...] week. Pt is f/u with Pulmo at [facility] for her Pneumonia, PE and chronic hypoxia and is on meds by them. Pt has home O2 set up for her home. Pt was admitted to [facility] on 02/22/24 due to not feeling well. Pt was found to have Pneumonia, PE, pulmonary infarction, pulmonary edema. Pt has finished her antibiotics and she is on Eliquis and Donegal. Pt is needing refill on them. Pt [...] is f/u with Psych at [facility] for it. Pt is on meds by them and is doing overall well with it. Denies any mood swings/SI/HI. Pt was f/u with Endo at [facility] and is on chronic Prednisone from them for last couple years. Ang Patterson MD [address] [facility], [facility] [address], [place], [address], [place] [facility] [employer] 04/09/2024 14:38:39 OBGyn Episode No OBEpisode recorded.
--- OUTSIDE RECORDS SUMMARY | 2025-03-29 01:46 | XMS_ITS | Referral Summary ---
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 Does NOT exclude the possibility of recent exposure to HCV. Current interpretive data was last revised on 22 Blood 07/15/2024 12:4 9 PM LEG ASSEMBLER 07/15/2024 1:25 PM LEG ASSEMBLER us Jessie Shewrood MD LAB MICROBIOLOGY - GENERAL ORDERABLES Final Result [facility] Department [place] [address] from Last 3 Months or Most Recently Relevant to Health Maintenance Insurance [facility] Care Teams Oil Distributor Relationship Specialty Start Date End Date Keven Gonzalez DO [address] [place] [address] PCP - General Family Medicine 05/29/24 Kendrick Chacon MD Emergency Medicine 04/27/20 Edy Yadav MD [address] [facility], [address] [address] Consulting Physician Pain Management 04/28/21
--- NOTE | 2025-03-29 12:20 | WPDHPUPDATE1 ---
History and Physical Update Update Date/Time: 03/29/25 12:20 History and Physical has been reviewed, including an updated exam of the patient. There are NO changes in the patient's condition. Risks, benefits, and alternatives have been discussed and questions answered. Patient agrees to proceed with procedure.
--- NOTE | 2025-03-29 12:21 | W.PM.PROC2 ---
Procedure Note - Detailed Date of Procedure 03/29/25 Pre-op Diagnosis spondylosis lumbosacral region Post-op Diagnosis Same Procedure Performed Diagnostic bilateral Lumbar Medial Branch/Dorsal Ramus Blocks at L3, L4, L5 Treating the bilateral L4-5, L5-S1 Facet Joints Under Fluoroscopic Guidance and with Contrast Control. (4 levels blocked). Surgeon Bin Mcdonald MD [employer] None. Anesthesia Local Description of Procedure INFORMED CONSENT: Risks, benefits and alternatives to the procedure were discussed in detail with the patient who expressed explicit understanding and consent to proceed. Patient was informed verbally and in written form regarding the risks associated with the procedure including the low risk of serious infection, bleeding/bruising, allergic reaction, nerve or organ injury, paralysis, procedural site pain or discomfort, worsening pain and/or mobility, failure to treat and/or disfigurement. The patient expressed explicit understanding and consent to proceed. All materials required for the procedure were available prior to procedure start. Site and side were marked prior to procedure and confirmed in the presence of the patient. PROCEDURE IN DETAIL: The patient was brought to the procedural suite and placed in the prone position. Patient was made comfortable with use of pillows under the head/chest, hips and ankles. Skin overlying the injection site on the affected side(s) was prepared broadly with ChloraPrep applicator and draped in a sterile manner. Aseptic technique was used throughout. The endplates of the vertebral bodies at the site(s) of interest were aligned in the AP view. Ipsilateral oblique angulation was utilized to optimize visualization of the intersection between the superior articulating process and transverse process at each target site. Local anesthesia was established by infiltration with approximately 5 mL of 1% lidocaine via a 1-1/2 inch 27-gauge needle. A 25-gauge 5.0 inch Quincke spinal needle was advanced until the needle tip contacted periosteum at the target site, right L3. Lateral view was utilized to confirm the appropriate placement of the needle tip just anterior to the facet line and superior to the pedicle. In the Lateral view, 0.25 mL of Omnipaque 300 contrast medium was injected after negative aspiration for CSF, blood or other bodily fluid, showing appropriate extra-articular spread of contrast without evidence of intravascular, foraminal or intrathecal placement. A 0.5 mL solution of 2.0% PF lidocaine was injected after negative repeat aspiration. Appropriate spread of the injectate was confirmed with washout of previously injected contrast. No parasthesias were elicited. Needle was removed completely intact without difficulty. The same exact procedure was repeated for all remaining levels on the ipsilateral side, right L4, L5 medial branches/dorsal ramus, modified as necessary to accommodate for the new target location with identical findings and results and no evidence of complication. The same exact procedure was repeated for all remaining levels on the contralateral side, left L3, L4, L5 medial branches/dorsal ramus, modified as necessary to accommodate for the new target location with identical findings and results and no evidence of complication. Images were saved and documented in the patient chart. Patient's skin was cleaned and sterile bandage applied. The patient tolerated the procedure well. The patient was transported to the recovery area in stable condition where they were observed for an appropriate amount of time prior to discharge, without evidence of complication. Patient was instructed on the appropriate completion of a pain diary over the next 12-24 hours. The patient was instructed to avoid excessive activity for the next 48 hours, including climbing and frequent use of stairs. Showers only for 48 hours. They were instructed not to drive or operate heavy machinery for 24 hours. They are to monitor for severe headaches, fevers, chills, night sweats, erythema/swelling at the site or any other signs of infection, bleeding/bruising, bowel or bladder changes as well as new pain, weakness or numbness in the upper or lower extremity. Should they notice these changes, they are instructed to call our office immediately or report directly to the nearest Emergency Department if no answer or if after posted office hours. COMPLICATIONS: None COMMENTS: None CONTRAST WASTED: 28.5mL Omnipaque 300. Complications No immediate complications Condition Stable Disposition Same day [facility] Billing Surgery - Charge Forward: Surgery Billing
[2025-03-29 13:24] VITALS: BP 135/72; PULSE 70; RESP 14; TEMP 36.6; O2SAT 98
[2025-03-29 13:41] VITALS: BP 137/71; PULSE 69; RESP 16; O2SAT 96
[2025-03-29] MEDS: LIDOCAINE 2% PF LOCAL INJ 5 ML VIAL 2 ML INFILTRATE (13:47)
[2025-03-29] MEDS: LIDOCAINE 1% PF INJ 5 ML VIAL 2 ML INFILTRATE (13:48)
[2025-03-29 13:51] VITALS: BP 138/67; PULSE 70; RESP 16; O2SAT 97
[2025-03-29 13:58] VITALS: BP 124/73; PULSE 66; RESP 16; O2SAT 97
== END 2025-03-29 14:15 | disposition home or self-care (01) ==
PROVIDERS: PCP Family Medicine; Visit Provider Anesthesiology Pain Medicine
PROC: (CPT 64493; principal; 2025-03-29 13:30)
DX: M47.817 Spondylosis without myelopathy or radiculopathy, lumbosacral region (principal); M51.379 Other intervertebral disc degeneration, lumbosacral region without mention of lumbar back pain or lower extremity pain; G89.29 Other chronic pain
CPT/HCPCS: 64493; 64494 ×2; 64495 ×2; 99199; J2003; Q9965

== ENCOUNTER 2025-06-15 05:43 | Day surgery (SDC) | payer OTHER, SELFPAY ==
[2025-06-08 10:57] VITALS: BMI 28.2
--- NOTE | 2025-06-08 11:14 | PC.NURSE ---
LATE ENTRY; 06/01/25, PER DANIEL VILLAGOMEZ, DIRECTOR [facility].
[2025-06-15] VITALS (7 sets, daily range): BP systolic 116–135; BP diastolic 61–72; PULSE 66–78; RESP 15–18; TEMP 37.2; O2SAT 97–100; BMI 29.7
--- NOTE | ~2025-06-15 | XR_ITS ---
EXAMINATION: XR fluoroscopy no charge DATE: 06/15/2025 07:49 INDICATION: Thoracolumbar epidural. Bullous for pain pump trial TECHNIQUE: 5 fluoroscopic images of the thoracolumbar spine were obtained during procedure performed by Dr. Mcdonald. Radiologist was not present for the imaging or procedure. The amount of fluoroscopy time used during this procedure was 0.4 minutes. 2 mm radiation dose of 7.77 mGy. COMPARISON: None. FINDINGS: Images demonstrate the spinal needle advanced via an interspinous process to the posterior central canal at the level of T12-L1. Injected contrast extends along the posterior and right side of the epidural space extending cephalad to the level of T11. No evident intrathecal or intravascular contrast. IMPRESSION: 1. Fluoroscopy utilized during pain management procedure at the thoracolumbar junction. See procedure note for further detail. Reviewed, dictated and finalized at location A. IMPRESSION: 1. Fluoroscopy utilized during pain management procedure at the thoracolumbar j unction. See procedure note for further detail.
--- NOTE | 2025-06-15 07:24 | WPDHPUPDATE1 ---
History and Physical Update Update Date/Time: 06/15/25 07:24 History and Physical has been reviewed, including an updated exam of the patient. There are NO changes in the patient's condition. Risks, benefits, and alternatives have been discussed and questions answered. Patient agrees to proceed with procedure.
--- NOTE | 2025-06-15 07:26 | P.OP_ITS ---
Procedure Note - Detailed Date of Procedure 06/15/25 Pre-op Diagnosis Lumbar Spinal Stenosis w/Neurogenic Claudication, chronic pain syndrome Post-op Diagnosis Same Procedure Performed Thoracolumbar Interlaminar Epidural Needle Placement at T11-12 for Single Prognostic Epidural Bolus of Opioid Analgesic (Pump Trial) under Fluoroscopic Guidance with Contrast Control. 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 Anesthesia Local Description of Procedure INFORMED CONSENT: Risks, benefits and alternatives to the procedure were discussed in detail with the patient who expressed explicit understanding and consent to proceed. Patient was informed verbally and in written form regarding the risks associated with the procedure including the low risk of inadvertent dural puncture resulting in CSF leak and subsequent acute or chronic spinal headache, serious systemic or local infection requiring additional surgery, bleeding/bruising or blood clot, allergic reaction, nerve /spinal cord or organ injury resulting in temporary or permanent weakness, paralysis, numbness, pain, deformity or bowel or bladder incontinence, procedural site pain or discomfort, worsening pain and/or mobility, failure to treat and/or disfigurement, as well as the risk of opioid overdose resulting in sedation, cognitive impairment, hypoxia, coma, , or under dose causing withdrawal symptoms or untreated pain. The patient expressed explicit understanding and consent to proceed despite the potential risks with the agreement that potential benefits far outweigh potential for harm. All materials required for the procedure were available prior to procedure start. Site and side were marked prior to procedure and confirmed in the presence of the patient. PROCEDURE IN DETAIL: The patient was brought to the procedural suite and placed in the prone position. Patient was made comfortable with use of pillows under the head/chest, hips and ankles. Appropriate monitoring initiated. Skin overlying the injection site was prepared broadly with ChloraPrep applicator and draped in a sterile manner. Aseptic technique was employed throughout. The endplates of the vertebral body at the site of interest were aligned in the AP view. Slight caudal tilt and ipsilateral oblique angulation was utilized to optimize visualization of the targeted posterior intervertebral foramen at T12-L1. Local anesthesia was established by infiltration with approximately 5 mL of 0.5% lidocaine via a 1-1/2 inch 27-gauge needle. A 20-gauge 4-inch Tuohy epidural needle was advanced intermittently until appropriate loss of resistance to air was identified via plastic loss of resistance syringe. Lateral view was used to confirm the appropriate positioning of the needle tip within the posterior epidural space. In the AP view, 2.0 mL of Omnipaque 300 contrast medium was injected after negative aspiration for CSF, blood or other bodily fluid, showing appropriate epidural spread of contrast without evidence of intravascular or intrathecal placement. 2 ml of a 1mg/ml aqueous solution of preservative free morphine labeled for IT/Epidural use was injected after negative repeat aspiration. Appropriate spread of the injectate was confirmed with washout of previously injected contrast. No parasthesias were elicited. Needle was removed intact and without difficulty. Site was cleaned and sterile bandage was applied. The patient tolerated the procedure well with no evidence of complication. Images were saved and documented in the patient chart. Patient's skin was cleaned and sterile bandage applied. The patient tolerated the procedure well. The patient was transported to the recovery area in stable condition where they were observed and monitored (RR, HR, BP, O2 Sats, Pain level) for an appropriate amount of time prior to discharge (no less than 1 hour), without evidence of co mplication. After approximately one hour, the patient was evaluated for neurologic deficit, pain relief and side effects with results as below. Patient instructed to remain in the presence of a responsible adult to monitor for the next 72 hours. The patient was instructed to avoid excessive activity for the next 48 hours, including climbing and frequent use of stairs. Showers only for 48 hours. They were instructed not to drive or operate heavy machinery for 72 hours. They are to monitor for pruritus, sedation/confusion, severe headaches, fevers, chills, night sweats, erythema/swelling at the site or any other signs of infection, bleeding/bruising, bowel or bladder changes as well as new pain, weakness or numbness in the upper or lower extremity. Should they notice these changes, they are instructed to call our office immediately or report directly to the nearest Emergency Department if no answer or if after posted office hours. COMPLICATIONS: None COMMENTS: Total dose:2 mg Morphine. No side effects of nausea, pruritus, somnolence, hallucinations noted. None CONTRAST WASTED: 26mL Omnipaque 300. Complications No immediate complications Condition Stable Disposition Same day ( Extended stay greater than 1 hour.) [facility] Billing Surgery - Charge Forward: Surgery Billing
[2025-06-15] MEDS: LIDO 1%/EPINEPHRINE 1:100,000 20 ML VIAL (07:34)
[2025-06-15] MEDS: MORPHINE SULFATE (07:45)
== END 2025-06-15 08:59 | disposition home or self-care (01) ==
PROVIDERS: PCP Family Medicine; Visit Provider Anesthesiology Pain Medicine
PROC: (CPT 62321; principal; 2025-06-15 07:30)
DX: M48.062 Spinal stenosis, lumbar region with neurogenic claudication (principal); G89.4 Chronic pain syndrome
CPT/HCPCS: 62321; 99199

== ENCOUNTER 2025-06-17 10:19 | Emergency (ER) | payer OTHER, SELFPAY ==
[2025-06-17 10:23] VITALS: BP 138/79; PULSE 82; RESP 16; TEMP 36.6; O2SAT 100
[2025-06-17 10:43] LABS: EDSTREPNEGPOS1 Negative (Negative)
--- NOTE | 2025-06-17 10:46 | ED.URI ---
HPI - URI/Sore Throat General Chief Complaint: Upper Respiratory Infection Stated Complaint: URI Time Seen by Provider: 06/17/25 10:46 Source: patient Mode of arrival: ambulatory Limitations: no limitations History of Present Illness HPI Narrative: 49-year-old female presents with complaint of scratchy throat, nasal congestion, cough, fatigue starting yesterday evening, worse this morning. Afebrile. Has not taking any yizi-bal-vicxmhi medications to treat symptoms. Denies nausea vomiting diarrhea. No chest pain or shortness of breath. All systems reviewed and negative except as noted above. Related Data Home Medications ?Medication ?Instructions ?Recorded ?Confirmed ?Last Taken ?Type citalopram 40 mg tablet 40 mg PO DAILY 09/06/22 06/15/25 06/15/25 History atorvastatin 10 mg tablet 10 mg PO QPM 10/01/24 06/15/25 06/14/25 History bupropion HCl 300 mg 24 hr tablet, 300 mg PO DAILY 10/01/24 06/15/25 06/15/25 History extended release hydroxychloroquine 200 mg tablet 200 mg PO Q12H 10/01/24 06/15/25 06/15/25 History ergocalciferol (vitamin D2) 1,250 50,000 unit PO WEEKLY 11/10/24 06/15/25 06/15/25 History mcg (50,000 unit) capsule linaclotide 72 mcg capsule 72 mcg PO DAILY 02/09/25 06/15/25 06/15/25 History (Linzess) Allergies Allergy/AdvReac Type Severity Reaction Status Date / Time naproxen AdvReac Gastrointestinal Verified 06/17/25 10:27 Upset PMFSH Past Medical History Medical History Irritable bowel syndrome with constipation Choking Rheumatoid arthritis Chronically dry eyes Former cigarette smoker History of rhabdomyolysis December 2023 Spondylosis, lumbosacral Degenerative disc disease, lumbar L4-S1 Degenerative disc disease, cervical C4-C7 Chronic back pain Neck and low back Irritable bowel syndrome Gastroesophageal reflux disease Chronic obstructive pulmonary disease Labral tear of right hip joint Asthma Depression Anxiety Surgical History Surgical History History of colonoscopy with polypectomy (~1999) History of right cataract surgery Status post anal fissurectomy History of section (2017) X1 History of tonsillectomy History of cholecystectomy Family History Family History Father Diabetes mellitus Hypertension Mother Hypertension Osteoarthritis Rheumatoid arthritis Grandparent Breast cancer Sibling Lupus Social History Social History Social History: She is . She lives at home with her 7-year-old daughter she has 2 grown sons other well. She smoked 1 pack of cigarettes per day for twenty-two years but quit in 2020. She denies any significant alcohol use. She denies illicit substance use. She works at an [employer]. Surrogate medical decision maker: Flakito Phelan, son. Code status: Full code. Smoking packs per day: 1 Smoking cigarettes per day: 20.0 Years smoked: 30 Smoking pack-years: 30.00 Smoking status: Former smoker Tobacco type: cigarettes Second hand tobacco smoke exposure: Yes Smoking end date: 09/02/20 Alcohol intake: never Substance use: never Substance use type: does not use Other substance usage details: denies IVDU Do You Feel Safe in your Home?: Yes Lack of Transportation: No Lack of Food: Sometimes True Current Housing: I Have Housing Concerned About Future Housing: No Difficulty Paying Gas/Electric Bills: YES Difficulty Paying for Meds: No Currently Unemployed: No Education: Trade/Vocational Certificate Difficulty w/ Childcare or Family Care: No Living arrangements: alone Additional living arrangements comments: sons and daughter Spiritual care concerns: No Comments At time of signature, agree with nursing past medical, surgical, social and family history. There is no relevant family history pertinent to the presenting complaint. Exam Narrative: GENERAL: This is a well-nourished, well-developed patient, Ill-appearing but no acute distress HEAD: normocephalic, atraumatic. EYES: PERRL. Sclera clear/white. Vision is grossly intact. EARS: External ears normal, auditory canals clear and without drainage, TMs normal without perforation. Hearing grossly intact. NOSE: External nose normal with clear nasal drainage THROAT: Mucous membranes moist, mild erythema to posterior pharynx without significant swelling or exudates NECK: Neck supple, non-tender without lymphadenopathy, masses or thyromegaly. CARDIOVASCULAR: Regular rate and rhythm without murmurs, gallops, or rubs. RESPIRATORY: Clear to auscultation. Breath sounds equal bilaterally. No wheezes, rales, or rhonchi. SKIN: warm, Dry, intact with no suspicious lesions or rash, good texture and turgor. NEURO: awake, alert, and oriented to person, place and time. There were no obvious focal neurologic abnormalities. EXTREMITIES: No joint tenderness, effusion, or edema noted. Course Course Level of Care: Express Care Visit Vital Signs Vital signs: Vital Signs Temperature 36.6 C 06/17/25 10:23 Pulse Rate 82 06/17/25 10:23 Respiratory Rate 16 06/17/25 10:23 Blood Pressure 138/79 06/17/25 10:23 Pulse Oximetry 100 06/17/25 10:23 Oxygen Delivery Room Air 06/17/25 10:23 Temperature 36.6 C 06/17/25 10:23 Pulse Rate 82 06/17/25 10:23 Respiratory Rate 16 06/17/25 10:23 Blood Pressure 138/79 06/17/25 10:23 Pulse Oximetry 100 06/17/25 10:23 Oxygen Delivery Room Air 06/17/25 10:23 reviewed MDM - URI/Sore Throat MDM Narrative Medical decision making narrative: negative COVID, influenza and strep test. Patient is alert, nontoxic. Recommend yozi-yno-kvumdvr medications to treat viral symptoms. Differential Diagnosis Differential diagnosis: Likely upper respiratory infection, sinusitis, viral infection, influenza and pharyngitis Lab Data Labs: Lab Results 06/17/25 Range/Units 10:41 POC Grp A Strep Screen Negative (Negative) Discharge Plan Discharge Clinical Impression: Viral upper respiratory tract infection with cough Patient Disposition: Home Condition: Stable Instructions: Upper Respiratory Infection (ED) Additional Instructions: your COVID, influenza and strep test was negative today. Your symptoms are viral and may last 7-10 days. Purchase an mvcg-vhs-adekosl medication to treat her symptoms such as DayQuil NyQuil cold and Sinus. Take ibuprofen every 6-8 hours as needed for pain and fever. Drink at least 64 oz of water a day. Place cool mist humidifier in bedroom where you sleep. See your doctor if symptoms are not improving. Patient Language: Citizen Of [place] Prescriptions: No Action albuterol sulfate 90 mcg/actuation HFA aerosol inhaler 2 puff inhalation Q4-6H PRN (Reason: shortness of breath or wheezing) 30 Days Qty: 8.5 0RF ferrous sulfate [FeroSul] 325 mg (65 mg iron) tablet 325 mg PO DAILY Qty: 90 2RF ergocalciferol (vitamin D2) 1,250 mcg (50,000 unit) capsule 50,000 unit PO WEEKLY Linzess 72 mcg capsule 72 mcg PO DAILY naloxone [Narcan] 4 mg/actuation spray,non-aerosol 4 mg intranasal Q2M PRN (Reason: opioid overdose) Qty: 2 0RF Rx Instructions: spray 1 dose into ONE nostril; alternate nostrils w each dose until help arrives. Must bring to the Pain Pump trial and to be kept at home during recovery of the trial. triamcinolone acetonide 0.1 % ointment 1 applic topical DAILY Qty: 80 1RF citalopram 40 mg tablet 40 mg PO DAILY atorvastatin 10 mg tablet 10 mg PO QPM bupropion HCl 300 mg tablet extended release 24 hr 300 mg PO DAILY hydroxychloroquine 200 mg tablet 200 mg PO Q12H hyoscyamine sulfate 0.125 mg tablet,disintegrating See Rx Instructions .ROUTE .COMPLEX Qty: 30 0RF Dose Instruction: DISSOLVE 1 TABLET BY MOUTH EVERY 4-8 HOURS NEEDED Rx Instructions: DISSOLVE 1 TABLET BY MOUTH EVERY 4-8 HOURS NEEDED budesonide-formoterol [Symbicort] 160-4.5 mcg/actuation HFA aerosol inhaler See Rx Instructions .ROUTE .COMPLEX Qty: 10.2 6RF Dose Instruction: INHALE 2 PUFFS BY MOUTH EVERY 12 HOURS Rx Instructions: INHALE 2 PUFFS BY MOUTH EVERY 12 HOURS carbamazepine 200 mg tablet See Rx Instructions .ROUTE .COMPLEX Qty: 60 2RF Dose Instruction: TAKE 1 TABLET BY MOUTH EVERY 12 HOURS Rx Instructions: TAKE 1 TABLET BY MOUTH EVERY 12 HOURS pantoprazole 40 mg tablet,delayed release (DR/EC) 40 mg PO BID Qty: 60 2RF methocarbamol 500 mg tablet See Rx Instructions .ROUTE .COMPLEX Qty: 90 0RF Dose Instruction: TAKE 1 TABLET BY MOUTH THREE TIMES DAILY NEEDED FOR MUSCLE SPASM Rx Instructions: TAKE 1 TABLET BY MOUTH THREE TIMES DAILY NEEDED FOR MUSCLE SPASM famotidine 40 mg tablet See Rx Instructions .ROUTE .COMPLEX Qty: 90 0RF Dose Instruction: TAKE 1 TABLET BY MOUTH AT BEDTIME Rx Instructions: TAKE 1 TABLET BY MOUTH AT BEDTIME furosemide 20 mg tablet 20 mg PO DAILY Qty: 90 0RF prochlorperazine maleate 5 mg tablet See Rx Instructions .ROUTE .COMPLEX Qty: 20 0RF Dose Instruction: TAKE 1 TABLET BY MOUTH EVERY 8 HOURS NEEDED FOR NAUSEA OR VOMITING Rx Instructions: TAKE 1 TABLET BY MOUTH EVERY 8 HOURS NEEDED FOR NAUSEA OR VOMITING Follow-up/Referrals: Keven Gonzalez DO [Primary Care Provider, [facility]] Time of Disposition: 10:52
[2025-06-17 10:52] LABS: EDCOVIDSCREEN Negative (Negative); EDINFLUASCREEN Negative (Negative); EDINFLUBSCREEN Negative (Negative)
--- OUTSIDE RECORDS SUMMARY | 2025-06-17 11:50 | XMS_ITS | Clinical Summary ---
Author Organization [facility] [place] [facility] Address [address] [place] [address] Care Team Providers Care Coal Cutter Name Role Phone Kendrick Chacon MD Unavailable [...] by mouth 2 (two) times a day 180 tablet 1 06/02/20 25 Active hydroxychloroquin e (PLAQUENIL) 200 mg tabletIndications :Arthralgia, unspecified joint Take 1 tablet (200 mg total) by mouth 2 (two) times a day 60 tablet 1 03/02/20 25 025 Discontin ued(Reord er) Active Problems Problem [...] Industry Job Start Date Job End Date [employer] Not on file Not on file Not [...] HEPATITIS C ANTIBODY Routine 07/15/2024 12:49 PM CUSTOMS CONSULTANT Effusion of joint, unspecified location Arthralgia, unspecified joint from Last 3 Months or Most Recently Relevant to Health Maintenance Results * Hepatitis C antibody Blood (07/15/2024 12:49 PM CUSTOMS CONSULTANT) Hep C Ab Nonreactive Nonreactive Comment:Antibodies to HCV no t detected. Does NOT exclude the possibility of recent exposure to HCV. Current interpretive data was last revised on 22 Blood 07/15/2024 12:4 9 PM CUSTOMS CONSULTANT 07/15/2024 1:25 PM CUSTOMS CONSULTANT us Jessie Sherwood MD LAB MICROBIOLOGY - GENERAL ORDERABLES Final Result [facility] Department [place] [address] from Last 3 Months or Most Recently Relevant to Health Maintenance Insurance [facility] [place] [address] [place] [address] Care Teams Coal Cutter Relationship Specialty Start Date End Date Keven Gonzalez DO [address] [place] [address] PCP - General Family Medicine 05/29/24 Kendrick Chacon MD Emergency Medicine 04/27/20 Edy Yadav MD [address] [facility] [address] Consulting Physician Pain Management 04/28/21
--- OUTSIDE RECORDS SUMMARY | 2025-06-17 11:50 | XMS_ITS | Clinical Summary ---
Author Organization [facility] [employer] Address [address] [place] [address] Care Team Providers Care Tripe Scraper Name Role Phone Keven Gonzalez DO Primary Care Provider [phone] Source Comments [facility] [employer]non-owned Affiliates and Associated Physician Practices is amultiple site organization consisting of ambulatory clinics and hospital sitesin [place], [place], [place] and [place]. This disclosure is being madepursuant to the Care Everywhere program and may not contain all information available regarding this patient. Last updated 18.[facility] [employer] Allergies Active Allergy Reactions Criticality Noted Date Comments Naproxen GI Discomfort,Other Low 04/14/2024 Heightens acid reflux Medications * Be aware that medications may [...] 6 hours as needed 1 Inhaler 3 01/02/20 17 Active Flunisolide HFA (AEROSPAN) 80 MCG/ACT Inhale 2 Puffs by mouth 2 times daily 1 Inhaler 1 01/04/20 17 Active omeprazole (PRILOSEC) 20 MG capsule Take 20 mg by mouth once daily Active citalopram (CELEXA) 20 MG tablet 04/13/20 20 Active clonazePAM (KLONOPIN) 0.5 MG tablet Take 0.5 mg by mouth once daily as needed 03/26/20 21 Active cyclobenzaprine (FLEXERIL) 10 MG tablet Take 10 mg by mouth nightly as needed 03/17/20 21 Active meloxicam (MOBIC) 7.5 MG tablet Take 7.5 mg by mouth 2 times daily as needed 03/26/20 21 Active tolterodine ER 24hr (DETROL LA) 4 MG capsule Take 4 mg by mouth once daily 03/02/20 21 Active fluticasone-salmete rol 113-14 MCG/ACT inhaler Inhale 1 puff by mouth 2 times daily Active vitamin D, ergocalciferol, (DRISDOL) 1.25 MG (87585 UT) capsule TAKE 1 CAPSULE BY MOUTH WEEKLY 07/12/20 21 Active predniSONE (Deltasone) 5 MG tabletIndications:A drenal insufficiency (HCC) TAKE 1 TABLET BY MOUTH EVERY DAY 90 tablet 11 03/26/20 23 Active Additional Information Patient not taking.Reason: Other, Reported on 05/13/2025 atorvastatin (Lipitor) 10 MG tablet Take 1 (one) tablet by mouth at bedtime Active Symbicort 160-4.5 MCG/ACT inhaler Inhale 2 (two) puffs by mouth 2 times daily Active buPROPion XL 24hr (Wellbutrin-XL) 300 MG tablet Take 1 (one) tablet by mouth once daily 05/11/20 25 Active carBAMazepine (TEGretol) 200 MG tablet Take 1 (one) tablet by mouth every 12 hours Active FeroSul 325 (65 Fe) MG tablet Take 1 (one) tablet by mouth once daily Active furosemide (Lasix) 20 MG tablet Take 1 (one) tablet by mouth once daily Active hydroxychloroquine (Plaquenil) 200 MG tablet Take 1 (one) tablet by mouth 2 times daily 03/02/20 25 Active hyoscyamine, disintegrating, (Nulev) 0.125 MG tablet Dissolve 1 (one) tablet under the tongue as needed for GI Upset Active albuterol-ipratropi um (Duo-Neb) 0.5-2.5 (3) MG/3ML nebulizer solution Inhale 3 mL by mouth as needed for Shortness of Breath Active Linzess 72 MCG capsule Take 1 (one) capsule by mouth once daily Active methocarbamol (Robaxin) 500 MG tablet Take 1 (one) tablet by mouth 3 times daily as needed FOR MUSCLE SPASM Active naloxone HCl (Narcan) 4 MG/0.1ML nasal spray [place] 1 (one) spray into the nose as needed for Other 05/09/20 25 Active pantoprazole EC (Protonix) 40 MG tablet Take 1 (one) tablet by mouth 2 times daily Active prochlorperazine (Compazine) 5 MG tablet Take 1 (one) tablet by mouth every 8 hours as needed Active citalopram (CeleXA) 40 MG tablet Take 1 (one) tablet by mouth once daily 04/28/20 25 Active Active Problems Problem Noted Date Diagnosed Date Adrenal insufficiency 04/19/2021 Prior with demise 01/30/2017 Supervision of high-risk of elderly mu ltigravida 01/29/2017 Encounter for anatomic survey 01/29/2017 Resolved Problems Problem Noted Date Diagnosed Date Resolved Date Viral pneumonia 01/01/2017 01/29/2017 Encounters Date Type Department Care Team Description 05/28/2025 Travel 05/27/2025 Telephone [facility] - Centralized Scheduling [address] [place] [phone] Maximo Haywood MD Reschedule Appointment (05/27-Left message to vishule Chastity's 08/12 appt- reschedule to the next available-MyChart note entered on 05/24-Not read--DLM-MS) 05/19/2025 Telephone [facility] - ENT [facility] [place] [address] Sapna Moran, VACUUM CLOSING MACHINE OPERATOR Speech Therapy 05/13/2025 1:15 PM CDT Office Visit [facility] - ENT [address] [place] [address] Maximo Haywood MD Muscle tension dysphonia (Primary Dx); Globus sensation 05/13/2025 Travel 03/23/2025 Travel 03/19/2025 Telephone [facility] - ENT [address] , [address] [phone] Maximo Haywood MD Appointment from Last 3 Months Immunizations Immunization Administration Dates Next Due ERVIN CASTRO PRIMARY 18+YR 02/12/2021 HEP A PED/ADULT VACCINE 02/24/2014 HEP A VACCINE, ADULT 12/06/2014 HEP B VACCINE 05/27/2006,12/20/2005,11/12/2005 TD (ADULT), 5 LF TETANUS TOX OID, ADSORBED, PF 11/12/2005 TDAP, HISTORIC VACCINE 02/22/2017,07/18/2015 Family History Medical History Relation Name Comments [...] Tobacco: Never Tobacco Cessation:Counseling Given: Not Answered Comments:Quit smoking 2020 Alcohol Use Standard Drinks/Week Comments No 0 (1 standard drink = 0.6 oz pur e alcohol) Comments No Sex and Gender Information Value Date Recorded Sex Assigned at Not on file Legal Sex Female 1:45 PM HUMAN FACTORS 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 Gender Identity Not on file Sexual Orientation Not on file Last Filed Vital Signs Vital Sign Reading Time Taken Comments Blood Pressure 113/77 05/13/2025 1:01 PM CDT Pulse 76 05/13/2025 1:01 PM CDT Temperature 36.8 C (98.2 F) 04/18/2021 3:49 PM CDT Respiratory Rate 16 01/01/2017 7:39 PM CDT Oxygen Saturation 96% 04/18/2021 3:49 PM CDT Inhaled Oxygen Concentration - - Weight 81.5 kg (179 lb 9.6 oz) 05/13/2025 1:01 P M CDT Height 165.1 cm (5' 5) 05/13/2025 1:01 PM CDT Body Mass Index 29.89 05/13/2025 1:01 PM CDT Plan of Treatment Upcoming Encounters Date Type Department Care Team (Late st Contact Info) Description 09/09/2025 10:00 AM HUMAN FACTORS ENGINEER Office Visit [facility] - ENT [address] [place] [address] [place] [address] [facility] [address] [place] [address] Health Maintenance Due Date Last Done Comments COLON MONITORING 1976 COLONOSCOPY - COLON CA SCREENING [address] CT COLONOGRAPHY - COLON CA SCREENING 1976 FIT - COLON CA SCREENING 1976 FLEX SIG - COLON CA SCREENING 1976 MAMMOGRAM 1976 HIV SCREENING 1991 HEPATITIS C SCREENING 07/25/1994 PAP SMEAR 1997 DEPRESSION SCREENING 09/02/2024 COVID-19 VACCINE (2 - 2024-2 6 season) 2025 02/12/2021 INFLUENZA VACCINE (#1) 2025 SCREENING FOR DIABETES 05/13/2025 ZOSTER VACCINE (1 of 2) 2026 DTAP/TDAP/TD VACCINES (4 - T d or Tdap) 02/22/2027 02/22/2017, 07/18/2015, 11/12/2005 COLOGUARD (AGES 45-75) - COL ON CA SCREENING 04/07/2027 04/07/2024 Colorectal Cancer Screening 04/07/2027 HEPATITIS B VACCINE Completed 05/27/2006, 12/20/2005, 11/12/2005 HIB VACCINE Aged Out No longer eligi ble based on patient's age to complete this topic HPV VACCINE Aged Out No longer eligi ble based on patient's age to complete this topic MENINGOCOCCAL (Group B) VACCINE SHARED DECISION-MAKING Aged Out No longer eligible based on patient's age to complete this topic MENINGOCOCCAL GROUPS A/C/Y/W VACCINE Aged Out No longer eligible b ased on patient's age to complete this topic PNEUMOCOCCAL VACCINE Aged Out No long er eligible based on patient's age to complete this topic Insurance [facility] SELF PAY NO INSURANCE Member Subscriber Plan / Payer (Ef fective for All Dates) Name:Anat Phelan Relation to Subscriber:Self Name:Anat Phelan Payer ID:Not on file Group ID:Not on file Type:Self Pay Address: [place], [place] Advance Directives Documents on File Type Date Recorded Patient Family Health Nurse Practitioner Expl anation Adv Directive/Living Will/POA 01/01/2017 * Full Code (Latest Code Status on File) Date Activated Date Inactivated Comments 01/01/2017 7:27 PM 01/01/2017 9:50 PM Care Teams Tripe Scraper Relationship Specialty Start Date End Date Keven Gonzalez DO [address] [place] [address] PCP - General Family Medicine 05/13/25
== END 2025-06-17 10:55 | disposition home or self-care (01) ==
PROVIDERS: Emergency Provider Nurse Practitioner Family; PCP Family Medicine
DX: J06.9 Acute upper respiratory infection, unspecified (principal); B97.89 Other viral agents as the cause of diseases classified elsewhere; Z79.899 Other long term (current) drug therapy; Z87.891 Personal history of nicotine dependence; Z20.822 Contact with and (suspected) exposure to COVID-19
CPT/HCPCS: 87081; 87426; 87804; 87880; 99213; G0463

== ENCOUNTER 2025-06-19 14:31 | Emergency (ER) | payer OTHER, SELFPAY ==
--- NOTE | ~2025-06-19 | XR_ITS ---
EXAMINATION: XR chest 2V, 06/19/2025 16:05 CDT HISTORY: SOB COMPARISON: No comparisons available. Technique: 2 views obtained. Findings: Trace right basilar infiltrate and effusion. No pneumothorax. Heart is normal size. Mediastinal and hilar contours are within normal limits. Bony thorax no acute abnormality. Impression: Small right lower lobe pneumonia Reviewed, dictated and finalized at location P. Impression: Small right lower lobe pneumonia
--- OUTSIDE RECORDS SUMMARY | 2025-06-19 14:33 | XMS_ITS | Clinical Summary ---
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 Does NOT exclude the possibility of recent exposure to HCV. Current interpretive data was last revised on 22 Blood 07/15/2024 12:4 9 PM BULLET CASTING OPERATOR 07/15/2024 1:25 PM BULLET CASTING OPERATOR us Jessie Sherwood MD LAB MICROBIOLOGY - GENERAL ORDERABLES Final Result [facility] One [facility] Department [place] [address] from Last 3 Months or Most Recently Relevant to Health Maintenance Insurance [facility] [place] [place] [address] Care Teams Sales Floor Associate Relationship Specialty Start Date End Date Keven Gonzalez DO [address] [place] [address] PCP - General Family Medicine 05/29/24 Kendrick Chacon MD Emergency Medicine 04/27/20 Edy Yadav MD [address] [facility] [address] Consulting Physician Pain Management 04/28/21
--- OUTSIDE RECORDS SUMMARY | 2025-06-19 14:33 | XMS_ITS | Clinical Summary ---
Author Organization [facility] Address [address] [facility] [place] [address] Care Team Providers Care State Attorney Name Role Phone Keven Gonzalez DO Primary Care Provider [phone] Source Comments [facility],non-owned Affiliates and Associated Physician Practices is amultiple site organization consisting of ambulatory clinics and hospital sitesin [place], [place], [place] and [place]. This disclosure is being madepursuant to the Care Everywhere program and may not contain all information available regarding this patient. Last updated 18.[facility] Allergies Active Allergy Reactions Criticality Noted Date [...] Active vitamin D, ergocalciferol, (DRISDOL) 1.25 MG (66392 UT) capsule TAKE 1 CAPSULE BY MOUTH [...] naloxone HCl (Narcan) 4 MG/0.1ML nasal spray [place] 1 (one) spray into the nose as [...] [facility] - Central[facility] Scheduling [address] [place] [phone] Maximo Haywood MD Reschedule Appointment (05/27-Left message to vishule Chastity's 08/12 appt- reschedule to the next available-MyChart note entered on 05/24-Not read--DLM-MS) 05/19/2025 Telephone [facility] - ENT [facility] [place] [address] Sapna Moran, WINCH RUNNER Speech Therapy 05/13/2025 1:15 PM CDT Office Visit [facility] - ENT [address] [place] [address] Maximo Haywood MD Muscle tension dysphonia (Primary Dx); Globus sensation 05/13/2025 Travel 03/23/2025 Travel 03/19/2025 Telephone [facility] - ENT [address] , [address] [phone] Maximo Haywood MD Appointment from Last 3 [...] on file Legal Sex Female 1:45 PM PLEATER Gender Identity Not on file Sexual Orientation [...] st Contact Info) Description 09/09/2025 10:00 AM PLEATER Office Visit [facility] - ENT [address] [place] [address] Maximo Haywood MD [address] [place] [address] [address] [place] [address] Health Maintenance Due Date Last Done Comments [...] to complete this topic Insurance [facility] SELF PAY NO INSURANCE Member Subscriber Plan / Payer (Ef fective for All Dates) Name:[employer] Anat K Relation to Subscriber:Self Name:Anat Phelan Amanda Payer ID:Not on file Group ID:Not on file Type:Self Pay Address: [place], [place] Advance Directives Documents on File Type Date Recorded Patient Cinder Man Expl anation Adv Directive/Living Will/POA 01/01/2017 * Full Code (Latest Code Status on File) Date Activated Date Inactivated Comments 01/01/2017 7:27 PM 01/01/2017 9:50 PM Care Teams State Attorney Relationship Specialty Start Date End Date Keven Gonzalez DO [address] [place] [address] PCP - General Family Medicine 05/13/25
--- OUTSIDE RECORDS SUMMARY | 2025-06-19 14:33 | XMS_ITS | Data Portability ---
Author Organization [facility] [employer], Main Office Address [address] [place] [address] Assessment Encounter Date Assessment Date Assessment LastModified [...] per schedule. Cont f/u with Gyne at [place] as per schedule. HM: WWE - 06/23, normal as per pt. Cont f/u with Gyne as per schedule. Mammo - 2 yrs ago. Ordered. Colonoscopy - Referred to GI. Flu - Pt declined. Tdap, Pneumo, Shingrix - At pharmacy/HD. F/u in 2 months. Lipids in 01/23. Annual labs in 06/25. [email or web address] Not available 10/24/2023 10:42:23 03/12/2024 03/12/2024 48 [...] Pt will be calling her Pulmo at [place] and see if she can be seen sooner. Pt declined for referral to Cardio. All meds verified with pt. [place] 5/325 # 40 given today until she can see Desk Clerks Supervisor. Meds as directed. Good liquid and fiber intake explained. Diet and exercise explained in detail. BP diary education given and call us if any concerns. F/u with PT as per schedule. F/u with GI as per schedule. Cont f/u with Pulmo at [place] as per schedule. Cont f/u with Psych at [facility] as per schedule. Cont f/u with Gyne at [place] as per schedule. HM: WWE - 06/23, [...] be seeing her Pulmo on 04/08/24 at [place]. Will refer pt to Cardio, Pain clinic. [...] per schedule. Cont f/u with Pulmo at [place] as per schedule. Cont f/u with Psych at [facility] as per schedule. Cont f/u with Gyne at [place] as per schedule. HM: WWE - 06/23, normal as per pt. Cont f/u with Gyne as per schedule. Mammo - 2 yrs ago. Ordered. Colonoscopy - Referred to GI. Cologuard ordered. Flu - Pt declined. Tdap, Pneumo, Shingrix - At pharmacy/HD. F/u in 1-2 months. Annual labs in 06/25. [email or web address] Not available 03/31/2024 16:12:56 04/09/2024 04/09/2024 48 [...] per schedule. Cont f/u with Pulmo at [place] as per schedule. Cont f/u with Psych at [facility] as per schedule. Cont f/u with Gyne at [place] as per schedule. Educated pt about alarming [...] F/u as directed. Annual labs in 06/25. [email or web address] Not available 04/09/2024 14:37:51 Plan of Treatment Reminders Order Date Submit Date Provider Last Modified By Organization Details Last Modified Time Details Appointments None recorded. Lab noninvasive colorectal cancer DNA + occult blood screening, QL, stool 2023 024 [email or web address], [address], [address], [place], [address], 17:19:08 lipid panel, serum [address] (Lab), [address] [place], [address], 4 08:11:23 lipid panel, serum [address] (Lab), [address] [place], [address], 08:30:44 Referral neurologist referral - Please call patient to schedule an appointment . Thank you. 2023 024 [email or web address] [facility] - Neurology, [address] [facility], [place], [address], 08:52:35 cardiologis t referral - Please call patient to schedule an appointment . Thank you. 2023 024 [email or web address] [facility] Heart And Vascular Referral Fax Line, [address] [facility], [facility] [address], [place], [address], 07:47:52 pain management referral - Please call patient to schedule an appointment . Thank you. 2023 024 [email or web address] [facility] Pain Management, [address] [facility] [address], [place], [address], 4 07:46:41 hematologis t referral - Multiple PEs, ex-smoker. Please call patient to schedule an appointment . Thank you. 2023 024 [email or web address] Matthew Whitman Nae TUCKER, [address] [facility], [address], [place], [address], 08:54:02 gastroenter ologist referral - Patient has new onset intussuscep tion , found on CT 01/21, not present on CT 12/12. Diverticulo sis. Please call patient to schedule an appointment . Thank you. 2023 024 [email or web address] [facility] - Gastroenterol ogy, [address], [address], [place], [address], 4 08:51:43 gastroenter ologist referral - Please call patient to schedule an appointment . 2023 024 [email or web address] Brenden Carlson MD, [address] [facility], [address], [place], [address], 4 08:35:15 Procedures None recorded. Surgeries None recorded. Imaging XR, hand, 3 or more view 2023 024 [email or web address] Not available 09:04:28 Medication Orders ipratropium 0.5 mg-albutero l 3 mg (2.5 mg base)/3 mL nebulizatio n soln 2023 024 [facility]00540, [address] [facility], [place], [place], [id number], 4 12:05:29 albuterol sulfate HFA 90 mcg/actuati on aerosol inhaler 2023 [facility] #93641, [address], [place], [place], [id number], 4 12:05:29 furosemide 20 mg tablet 2023 [facility] #93085, [address], [place], [place], [id number], 4 12:05:30 omeprazole 40 mg capsule,del ayed release 2023 [facility] #17720, [address], [place], [place], [id number], 4 12:05:30 famotidine 40 mg tablet 2023 [facility] #02278, [address], [place], [place], [id number], 4 12:05:29 atorvastati n 10 mg tablet 2023 [facility] #66846, [address], [place], [place], [id number], 4 12:05:33 ipratropium 0.5 mg-albutero l 3 mg (2.5 mg base)/3 mL nebulizatio n soln 2023 024 [facility] #95070, [address], [place], [place], [id number], 4 16:00:21 Eliquis 5 mg tablet 2023 024 [facility] #20583, [address], [place], [place], [id number], 4 16:00:24 albuterol sulfate HFA 90 mcg/actuati on aerosol inhaler 2023 024 [facility] #59258, [address] [facility], [place], [place], [id number], 4 16:00:26 furosemide 20 mg tablet 2023 024 [facility] #74306, [address] [facility], [place], [place], [id number], 4 16:00:26 gabapentin 600 mg tablet 2023 024 [facility] #03214, [address] [facility], [place], [place], [id number], 4 16:00:23 baclofen 20 mg tablet 2023 024 [facility] #02008, [address] [facility], [place], [place], [id number], 4 16:00:31 atorvastati n 10 mg tablet 2023 024 [facility] #01407, [address] [facility], [place], [place], [id number], 4 16:00:27 ergocalcife rol (vitamin D2) 1,250 mcg (50,000 unit) capsule 2023 024 [facility] #07367, [address] [facility], [place], [place], [id number], 4 16:00:29 omeprazole 40 mg capsule,del ayed release 2023 024 [facility] #45782, [address] [facility], [place], [place], [id number], 4 16:00:27 famotidine 40 mg tablet 2023 024 [facility] #69705, [address] [facility], [place], [place], [id number], 4 16:00:21 ipratropium 0.5 mg-albutero l 3 mg (2.5 mg base)/3 mL nebulizatio n soln 2023 [facility] #98553, [address] [facility], [place], [place], [id number], 4 10:22:20 Eliquis 5 mg tablet 2023 [facility] #55214, [address] [facility], [place], [place], [id number], 4 10:22:22 hydrocodone 5 mg-acetamin ophen 325 mg tablet 2023 [facility] #66603, [address] [facility], [place], [place], [id number], 4 10:22:59 albuterol sulfate HFA 90 mcg/actuati on aerosol inhaler 2023 024 [facility] #73506, [address] [facility], [place], [place], [id number], 4 10:23:13 furosemide 20 mg tablet 2023 024 [facility] #35587, [address] [facility], [place], [place], [id number], 4 10:46:07 atorvastati n 10 mg tablet 2023 024 [facility] #79682, [address] [facility], [place], [place], [id number], 4 10:22:22 gabapentin 300 mg capsule 2023 024 [facility] #62493, [address] [facility], [place], [place], [id number], 4 16:01:49 ergocalcife rol (vitamin D2) 1,250 mcg (50,000 unit) capsule 2023 024 [facility] #59634, [address] [facility], [place], [place], [id number], 4 10:22:22 omeprazole 40 mg capsule,del ayed release 2023 024 [facility] #18601, [address] [facility], [place], [place], [id number], 4 10:22:24 famotidine 40 mg tablet 2023 024 [facility] #80105, [address] [facility], [place], [place], [id number], 4 10:22:21 docusate sodium 100 mg capsule 2023 024 [facility] #28624, [address] [facility], [place], [place], [id number], 4 14:26:23 phentermine 37.5 mg tablet 2023 024 [facility] #27728, [address] [facility], [place], [place], [id number], 4 10:13:02 diclofenac sodium 75 mg tablet,tarsha yed release 2023 024 [facility] #43212, [address] [facility], [place], [place], [id number], 4 10:36:23 atorvastati n 10 mg tablet 2023 024 [facility] #51289, [address] [facility], [place], [place], [id number], 4 10:32:43 phentermine 37.5 mg tablet 2023 024 [facility] #46668, [address] [facility], [place], [place], [id number], 4 10:13:02 ergocalcife rol (vitamin D2) 1,250 mcg (50,000 unit) capsule 2023 024 [facility] #94011, [address] [facility], [place], [place], [id number], 4 10:32:39 omeprazole 40 mg capsule,del ayed release 2023 024 [facility] #95470, [address] [facility], [place], [place], [id number], 4 10:32:40 famotidine 40 mg tablet 2023 024 [facility] #92729, [address] [facility], [place], [place], [id number], 4 10:32:42 Patient TargetsNo targets recorded. Patient Instructions Encounter Date Encounter Id Patient Instructions Last Modified By Organization Details Last Modified Time 10/24/2023 [id number] learning about obesity Not available 10/24/2023 10:32:32 03/12/2024 [id number] learning about obesity Not available 03/12/2024 10:22:13 [...] Medical Equipment needed: Billing Guidelines CPT code 78767- Transitional Care Management services with moderate medical decision complexity (gmci-xq-noer visit within 14 days of discharge). CPT code 33945- Transitional Care Management services with high medical decision complexity (ihfy-pi-qaax visit within 7 days of discharge). Not available 03/12/2024 09:52:22 03/31/2024 [id number] learning about obesity [email or web address] Not available 03/31/2024 16:00:11 Thank you for [...] to discuss. Not available 03/31/2024 15:42:48 04/09/2024 [id number] Thank you for your visit to our [...] Not available 04/09/2024 11:46:58 Reason for Referral Flight Dispatcher Referral for Screening colonoscopy Please call patient to schedule an appointment. Referring Physician: Ang Patterson [facility], Encounter Date: 10/24/2023 Flight Dispatcher Referral for Intussusception of small intestine Patient has new onset intussusception , found on CT 01/21, not present on CT 12/12. Diverticulosis. Please call patient to schedule an appointment. Thank you. Referring Physician: Janneth Rogers [facility], Encounter Date: 01/29/2024 Multiple PEs, ex-smoker. Ple ase call patient to schedule an appointment. Thank you. Referring Physician: Ang Patterson [facility], Encounter Date: 03/12/2024 Pain Management Referral for Cervical spondylosis without myelopathy Please call patient to schedule an appointment. Thank you. Referring Physician: Ang Patterson [facility], Encounter Date: 03/31/2024 Quality Assurance Monitor Referral for Dy spnea on exertion Please call patient to schedule an appointment. Thank you. Referring Physician: Ang Patterson [facility], Encounter Date: 03/31/2024 Neurologist Referral for Kory mor B/l UE tremors for last 1-2 weeks. Please call patient to schedule an appointment. Thank you. Referring Physician: Ang Patterson [facility], Encounter Date: 04/09/2024 Results Created Date Observation Date Name Description Value Unit Range Abnormal Flag Note LastModifiedBy Organization Detail LastModifiedTime 10/01/19 24 10/02/2023 HELIC OBACT ER PYLOR I AG, EIA, STOOL helicobacter pylori Ag, EIA, stool SEE NOTE HELIC OBACT ER PYLOR I AG, EIA, STOOL Micro Numbe r: [id number] Test Statu s: Final Speci men [...] Range : Not Detec leti Not Available [facility] [address], [place], [address], 10/02/2023 13:18:31 04/07/20 24 04/07/2024 COLOG UARD cologuard result reportable NEGATI VE negati ve normal NEGAT JAMEY TEST RESUL T. A negat jamey Colog uard resul t indic ates a low likel ihood that a color ectal cance r (CRC) or advan james adeno ma (colton omato us polyp s with more advan james pre-m align ant featu res) is prese nt. The chan e that a perso n with a [...] of 10,00 0 indiv idual s at [place] risk for color ectal cance r [...] asymp tomat ic indiv idual s at [facility] risk for color [...] ns.ht ml.; Scott RENEE, Henna CASTILLO, Marely LeaK, Color ectal Cance r Scree audra: Recom menda tions for Physi cians and Patie nts from the U.[place]. Multi -Soci ety Task Force on Color ectal Cance r Scree audra , Lisa kramer y 2017; 112:1 016-1 030. TEST DESCR IPTIO N: [place] site algor ithmi c genseis sis of stool DNA-b iomar kers with [...] years or older , who are at [facility] for color ectal cance r (CRC) . Colog uard has been appro rohan for use by the U.[place]. FDA. The perfo rmanc e of Colog uard was estab lishe d in a cross secti onal study of [facility] adult s aged 50-84 . Colog [...] study of 0 indiv idual s at [place] risk for color ectal cance r [...] at www.c sang thomasd.c om. Not Available [employer] [address], [place], [address], 04/11/2024 17:19:08 12/13/19 24 12/13/2023 CT, abdom en + pelvi s, w/ contr ast No observ ation record ed. [place] [address], [place], [address], 12/23/2023 09:42:22 12/30/19 24 12/30/2023 CT, cervi bimal spine , w/o contr ast No observ ation record ed. [email or web address] [address], [place], [address], 12/30/2023 14:14:10 12/30/19 24 12/30/2023 XR, lumbo sacra l spine , 2 or 3 view No observ ation record ed. [email or web address] [facility] [address], [place], [address], 12/30/2023 14:14:21 01/22/20 24 01/22/2024 XR, chest No observ ation record ed. [email or web address], [place], [address], 01/22/2024 11:16:05 01/22/20 24 01/22/2024 LDCT, chest , for lung cance r scree audra No observ ation record ed. [address] [facility], [place], [address], 01/22/2024 17:06:54 01/22/20 24 01/22/2024 CT, angio gram, chest , w/ contr ast No observ ation record ed. [place] [address], [place], [address], 03/12/2024 11:08:31 02/24/20 24 02/24/2024 US, doppl er echoc ardio gram No observ ation record ed. [address] [facility], [place], [address], 03/12/2024 10:02:16 03/25/20 24 03/25/2024 XR, chest , 2 view No observ ation record ed. [address], [place], [address], 03/31/2024 15:49:25 03/25/20 24 03/25/2024 CT, angio gram, chest , w/ contr ast No observ ation record ed. [place] [address], [place], [address], 03/31/2024 15:49:25 04/02/20 24 04/02/2024 CT, brain , w/o contr ast No observ ation record ed. [address], [place], [address], 04/09/2024 11:57:47 04/02/20 24 04/02/2024 XR, chest No observ ation record ed. [address], [place], [address], 04/09/2024 11:57:47 04/29/20 24 04/08/2024 imagi ng/di agnos tic resul t No observ ation record ed. [address], [place], [address], 04/29/2024 09:51:53 Result Notes None recorded. Problems Name Problem SNOMED Code Status Onset Date Resolution Date Notes Provider Name and Address Organization Details Recorded Time Depressive disorder 02569973 Active 2022 Ang Patterson MD [address], [place], [address], [employer] 3 15:00:33 Anxiety disorder 314405941 Active 2022 Ang Patterson MD [address], [place], [address], [employer] 3 15:00:39 Post-trauma tic stress disorder 77066693 Active 2022 Ang Patterson MD [address], [place], [address], [employer] 3 15:00:45 Obesity 291027017 Active 2022 Ang Patterson MD [address], [place], [address], [employer] 3 15:01:02 Chronic neck pain 1348263594656 Active 2022 Ang Patterson MD [address], [address], [place], [address], [employer] 3 15:03:12 Chronic low back pain 327313206 Active 2022 Ang Patterson MD [address], [address], [place], [address], [employer] 3 15:03:20 Cervical spondylosis without myelopathy 419318520 Active 2022 Ang Patterson MD [address], [address], [place], [address], [employer] 3 15:17:42 Ex-smoker 1309102 Active 2022 Ang Patterson MD [address], [address], [place], [address], [employer] 3 15:17:55 Degeneratio n of cervical interverteb ral disc 79473977 Active 2022 Ang Patterson MD [address], [address], [place], [address], [employer] 3 14:38:13 Otalgia of right ear 5748564785 Active 2022 Ang Patterson MD [address], [place], [address], [employer] 3 09:56:32 Chronic idiopathic constipatio n 73911109 Active 2022 Ang Patterson MD [address], [address], [place], [address], [employer] 3 09:58:26 Gastroesoph ageal reflux disease without esophagitis 677436302 Active 2022 Ang Patterson MD [address], [address], [place], [address], [employer] 3 09:59:58 Xerostomia 56156089 Active 2022 Ang Patterson MD [address], [place], [address], [place] [facility] [employer] [facility] 3 10:05:03 Anemia 388580272 Active 2022 Ang Patterson MD [address], [place], [address], [employer] [place] [facility] [employer] [facility] 3 14:59:07 Vitamin D deficiency 08413875 Active 2023 Ang Patterson MD [address], [place], [address], [employer] [place] [facility] [employer] [employer] 4 10:31:01 Hyperlipide ana 19320322 Active 2023 Ang Patterson MD [address], [place], [address], [employer] [place] [facility] [employer] [facility] 4 10:31:30 Pain of bilateral hands 1832978707489 9109 Active 2023 Ang Patterson MD [address], [place], [address], [employer] [place] [facility] [employer] [facility] 4 10:34:43 Intussuscep tion of small intestine 963026761 Active 2023 SHIRA Mckeon [address], [place], [address], [place] [facility] [employer] [facility] 4 14:12:52 Pulmonary embolism 98872103 Active 2023 Ang Patterson MD [address], [place], [address], [employer] [place] [facility] [place] [facility] 4 10:05:37 Pulmonary embolism with pulmonary infarction 9819273703499 Active 2023 Ang Patterson MD [address], [place], [address], [place] [facility] [employer] [facility] 4 10:13:28 Dyspnea on exertion 39840070 Active 2023 Ang Patterson MD [address], [place], [address], [facility] [employer] [facility] 4 15:57:53 Tremor 51157819 Active 2023 Ang Patterson MD [address], [place], [address], [facility] [employer] [facility] 4 11:59:25 Problem Notes None recorded. Procedures Surgical History Date Name Laterality Status Provider Name and Address Organization Details Recorded Time 03/31/2024 Transition al_Care_Ma nagement completed [facility] 03/31/2024 15:42:49 03/12/2024 Transition al_Care_Ma nagement completed [facility] 03/12/2024 09:52:22 Imaging Results None recorded. Procedure [...] Details Last Updated DateTime 10/24/2023 32.5 kg/m2 83785.86 g Ang Patterson MD [address] [facility] [address], [place], [address], [facility] [employer] 10/24/2023 10:40:55 Date Recorded Body height Body temperature Heart rate Respiratory rate Oxygen saturation Oxygen saturation in Arterial blood by Pulse oximetry Systolic And Diastolic Provider Name and Address Organization Details Last Updated DateTime 4 165.1 cm 98 [degF] 98 /min 20 /min 99 % 99 % 132/72 mm[Hg] [employer] [facility] [employer] 4 10:05:54 Date Recorded Body height Body temperature Heart rate Oxygen saturation Oxygen saturation in Arterial blood by Pulse oximetry Body mass index (BMI) Body weight Systolic And Diastolic Provider Name and Address Organization Details Last Updated DateTime 4 165.1 cm 98.7 [degF] 89 /min 98 % 98 % 33 kg/m2 39853.4 4 g 173/102 mm[Hg] Tana Brown MA [facility] [employer] [facility] 14:07:48 Date Recorded Heart rate Respiratory rate Oxygen saturation Oxygen saturation in Arterial blood by Pulse oximetry Inhaled oxygen flow rate Systolic And Diastolic Provider Name and Address Organization Details Last Updated DateTime 4 100 /min 24 /min 90 % 90 % 2 L/min 146/88 mm[Hg] Ang Patterson MD [address], [place], [address], [facility] [employer] [facility] 4 10:41:10 Date Recorded Body height Body mass index (BMI) Body weight Body temperature Provider Name and Address Organization Details Last Updated DateTime 03/12/2024 165.1 cm 30.5 kg/m2 98558.75 g 98.2 [degF] [employer] [facility] [employer] [facility] 03/12/2024 09:56:29 Date Recorded Heart rate Respiratory rate Oxygen saturation Oxygen saturation in Arterial blood by Pulse oximetry Inhaled oxygen flow rate Provider Name and Address Organization Details Last Updated DateTime 4 110 /min 22 /min 94 % 94 % 2 L/min Ang Patterson MD [address], [address], [place], [address], [facility] [employer] 4 16:08:35 Date Recorded Body height Body mass index (BMI) Body weight Body temperature Systolic And Diastolic Provider Name and Address Organization Details Last Updated DateTime 03/31/2024 165.1 cm 32.1 kg/m2 86494.3 8 g 98.1 [degF] 144/90 mm[Hg] [employer] [facility] [employer] 15:47:52 Date Recorded Heart rate Oxygen saturation Oxygen saturation in Arterial blood by Pulse oximetry Provider Name and Address Organization Details Last Updated DateTime 04/09/2024 96 /min 96 % 96 % Ang Patterson MD [address], [address], [place], [address], [facility] [employer] [facility] 04/09/2024 12:43:19 Date Recorded Body height Body mass index (BMI) Body weight Body temperature Respiratory rate Systolic And Diastolic Provider Name and Address Organization Details Last Updated DateTime 165.1 cm 31.8 kg/m2 50932.4 9 g 97.9 [degF] 16 /min 146/86 mm[Hg] [employer] 11:51:44 Social History Question Answer Notes LastModified by Organizat ion Details LastModified Time Tobacco Smoking Status Former Smoker Ang Patterson MD [address], [facility] [address], [place], [address], [employer] 04/23/2023 15:18:12 Do You Have An Advance [...] Or The Highest Degree You Have Received? [id number] Information not available 04/23/2023 Have There Been [...] Do You Have A Medical Power Of Donation Specialist? No Information not available 04/23/2023 How Many [...] anxious, or unable to sleep at night)? [id number] Information not available 04/23/2023 Family History Nothing [...] HAVE YOU BEEN HOSPITALIZED OR SEEN IN [facility] IN THE PAST YEAR ? N [...] Diagnosis SNOMED-CT Code Diagnosis ICD10 Code Diagnosis IMO Codes Diagnosis Note [id number] Ang Patterson MD [address] [address] 04/23/2023 14:37:09 04/23/2023 15:24:12 Depressive disorder 90181530 F32.A Anxiety disorder 0237377 06 F41.9 Post-traum atic stress disorder 12499272 F43.10 Obesity 541548443 E66.9 Ex-smoker 3082267 Z87.89 1 Chronic neck pain 721147 7552 107 M54.2 Chronic low back pain 27 2741738 M54.50 Cervical s pondylosis without myelopathy [id number] M47.553 [id number] Ang Patterson MD [address] [address] 05/14/2023 17:26:14 05/14/2023 17:49:44 Chronic neck pain 9453413882 107 M54.2 Chronic low back pain 27 6399519 M54.50 Cervical s pondylosis without myelopathy 580637448 M47.812 Depressive disorder 3548 9007 F32.A Anxiety disorder 6883797 06 F41.9 Post-traum atic stress disorder 14368129 F43.10 Obesity 002167677 E66.9 Ex-smoker 5191941 Z87.89 1 Degenerati on of cervical intervertebral disc 41959360 M50.30 [id number] Ang Patterson MD [address] [address] 06/04/2023 09:43:47 06/04/2023 10:27:29 Adult health examination 376072684 Z00.00 Chronic neck pain 813042 6452 107 M54.2 Chronic low back pain 27 5924330 M54.50 Obesity 134618543 E66.9 Ex-smoker 0773918 Z87.89 1 Otalgia of right ear 941 4224415 H92.01 Screening colonoscopy 44 0498704 Z12.11 Chronic id iopathic constipation 27034476 K59.04 Gastroesop hageal reflux disease without esophagitis 702191164 K21.9 Screening mammography 24 627351 Z12.31 Cervical s pondylosis without myelopathy 355880093 M47.812 Xerostomia 67778620 R68. 2 [id number] Ang Patterson MD [address] [address] 1 06/25/2023 14:39:36 06/25/2023 15:24:08 Chronic neck pain 0999459608 107 M54.2 Chronic low back pain 27 6963144 M54.50 Obesity 002219117 E66.9 Ex-smoker 3473286 Z87.89 1 Chronic id iopathic constipation 61626152 K59.04 Gastroesop hageal reflux disease without esophagitis 244316746 K21.9 Cervical s pondylosis without myelopathy 981643321 M47.812 Xerostomia 76599104 R68. 2 Anemia 059065851 D64.9 [id number] Ang Patterson MD [address] [address] 1 07/18/2023 15:27:03 07/18/2023 15:47:18 Chronic neck pain 0556371584 107 M54.2 Chronic low back pain 27 6684496 M54.50 Obesity 988933558 E66.9 [id number] Ang Patterson MD [address] [address] 1 08/22/2023 10:25:27 08/22/2023 10:43:48 Obesity 796810273 E66.9 Gastroesop hageal reflux disease without esophagitis 974010718 K21.9 Depressive disorder 3548 9007 F32.A [id number] Ang Patterson MD [address] [address] 1 10/24/2023 09:54:39 10/24/2023 10:45:37 Gastroesophageal reflux disease without esophagitis 776181216 K21.9 Obesity 427348436 E66.9 Vitamin D deficiency 347 68378 E55.9 Hyperlipidemia 00647884 E78.5 Pain of bi lateral hands 0074860056 7934787 M79.641 Screening colonoscopy 44 2389999 Z12.11 [id number] Ang Patterson MD [address] [address] 01/29/2024 13:56:02 01/29/2024 14:34:01 Intussusception of small intestine 222519282 K56.1 Chronic id iopathic constipation 53807524 K59.04 Obesity 267091727 E66.9 [id number] Ang Patterson MD [address] [address] 03/12/2024 09:48:48 03/12/2024 11:12:17 Vitamin D deficiency 64729770 E55.9 Hyperlipidemia 57118034 E78.5 Gastroesop hageal reflux disease without esophagitis 369241699 K21.9 Obesity 104223672 E66.9 Pain of bi lateral hands 2071337637 3670300 M79.641 Hospital i npatient stay within past 30 days 0112126238 106 Z76.89 Transition of care 92964 13021 105 Z75.8 Pulmonary embolism 09575 003 I26.99 Cervical s pondylosis without myelopathy 478643968 M47.812 Pulmonary embolism with pulmonary infarction 1195229303 102 I26.99 [id number] Ang Patterson MD [place] 01248294-144 1 03/31/2024 15:36:12 03/31/2024 16:29:17 Transition of care 9294385299 105 Z75.8 Pulmonary embolism 39297 003 I26.99 Vitamin D deficiency 347 52250 E55.9 Hyperlipidemia 53041405 E78.5 Gastroesop hageal reflux disease without esophagitis 437709353 K21.9 Obesity 068580319 E66.9 Pain of bi lateral hands 9395694473 0926000 M79.641 Cervical s pondylosis without myelopathy 381181227 M47.812 Pulmonary embolism with pulmonary infarction 4763896715 102 I26.99 Dyspnea on exertion 6084 5006 R06.09 Screening for malignant neoplasm of colon 444319309 Z12.11 [id number] Ang Patterson MD [address] [address] 1 04/09/2024 11:38:36 04/09/2024 14:39:32 Transition of care 6698722398 105 Z75.8 Pulmonary embolism 77102 003 I26.99 Vitamin D deficiency 347 45901 E55.9 Hyperlipidemia 68880933 E78.5 Gastroesop hageal reflux disease without esophagitis 766075054 K21.9 Obesity 969750425 E66.9 Pain of bi lateral hands 7072438984 7048253 M79.641 Cervical s pondylosis without myelopathy 910855686 M47.812 Pulmonary embolism with pulmonary infarction 7679503094 102 I26.99 Dyspnea on exertion 6084 5006 R06.09 Tremor 39477370 R25.1 Hospital i npatient stay within past 30 days 9418315970 106 Z76.89 Health Concerns Section Related Observation LastModified by Organization Detai ls LastModified Time None Recorded Concern Status LastModified by Organization Details LastModified Time None Recorded Advance Directives Directive N: Payers Insurance Date Sequence Insurance Name Policy Number Policy Walsh Covered Member ID Walsh Member ID Guarantor Name 03/31/2024 1 [facility] - [employer] [facility] - DOS PRIOR TO 2025 (MEDICAID REPLACEMENT - HMO) [id number] Anat Camdenchristianne [id number] Anat Camdenchristianne 12/26/2023 1 *SELF PAY* Ka rla Camdenchristianne 03/30/2024 1 *SELF PAY* Ka rla Camdenmatt 03/31/2024 1 [facility] - [employer] [facility] - DOS PRIOR TO 2025 (MEDICAID REPLACEMENT - HMO) [id number] Anat Phelan [id number] Anatestela Hannahchristianne 03/31/2024 2 [place] Anat Phelan [id number] Anat Phelan 03/31/2024 1 [place] Anat Phelan [id number] Anat Phelan 03/31/2024 2 [place] Anat Phelan [id number] Anat Phelan 03/31/2024 2 [place] Anat Phelan [id number] Anat Phelan 01/05/2025 1 [place] Anat Phelan [id number] Anat Phelan 03/31/2024 2 [place] CORRECTIONS Anat Phelan [id number] Anat Phelan Notes Date Note Type Note [...] swings/SI/HI. Pt was f/u with Endo at [facility] and is on chronic Prednisone from them for last couple years. Ang Patterson MD [address] [facility], [place] [address], [place], [address], [facility] [employer] 10/24/2023 10:42:51 01/29/2024 text/html Anat Phelan is [...] speak with case managment. SHIRA Mckeon [address] [facility], [place], [address], [employer] 01/29/2024 14:33:48 03/12/2024 text/html Hospital fuv:Pt has some insurance issues going on. Pt was admitted to [facility] on 02/22/24 due to not feeling well. Pt was found to have Pneumonia, PE, pulmonary infarction, pulmonary edema. Pt has finished her antibiotics and she is on Eliquis and [place]. Pt is needing refill on them. Pt will be seeing Pulmo at [place] in few weeks. Pt has home O2 [...] swings/SI/HI. Pt was f/u with Endo at [facility] and is on chronic Prednisone from them for last couple years. Ang Patterson MD [address], [facility] [address], [place], [address], [employer] 03/12/2024 11:10:25 03/31/2024 text/html Hospital fuv: Pt was seen in ED again on 03/25/24 due to SOB and chest pain and got work up done and was found to have Pneumonia. So pt was d/c on Z-jeanmarie and hydrocodone from ED. Pt has finished Z-jeanmarie and is feeling much better now. No fever/chills/n/v/d/sp utum. Pt will be seeing Pulmo at [place] on 04/08/24. Pt has home O2 set up done already and she has with her. Pt was admitted to [facility] on 02/22/24 due to not feeling well. Pt was found to have Pneumonia, PE, pulmonary infarction, pulmonary edema. Pt has finished her antibiotics and she is on Eliquis and [place]. Pt is needing refill on them. Pt [...] swings/SI/HI. Pt was f/u with Endo at [facility] and is on chronic Prednisone from them for last couple years. Ang Patterson MD [address] [place] [address], [facility] [address], [place], [address], [place] [facility] 03/31/2024 16:13:31 04/09/2024 text/html Hospital fuv: Pt [...] body pain and she is asking for [place]. Pt is not taking her Gabapentin. Pt was seen couple weeks ago and was given [place] by me # 40 on 03/21/24 and [...] week. Pt is f/u with Pulmo at [place] for her Pneumonia, PE and chronic hypoxia and is on meds by them. Pt has home O2 set up for her home. Pt was admitted to [facility] on 02/22/24 due to not feeling well. Pt was found to have Pneumonia, PE, pulmonary infarction, pulmonary edema. Pt has finished her antibiotics and she is on Eliquis and [place]. Pt is needing refill on them. Pt [...] swings/SI/HI. Pt was f/u with Endo at [facility] and is on chronic Prednisone from them for last couple years. Ang Patterson MD [address] [facility], [facility] [address], [place], [address], [facility] [employer] 04/09/2024 14:38:39 OBGyn Episode No OBEpisode recorded.
[2025-06-19 14:36] VITALS: BP 150/91; PULSE 81; RESP 20; TEMP 36.6; O2SAT 100
--- NOTE | 2025-06-19 14:40 | ECG_ITS ---
Test Date: 2025-06-19 14:44:36 Measurements Intervals Kell Rate: 69 P: -52 DC: 111 QRS: 73 QRSD: 101 T: 52 QT: 416 QTc: 447 Interpretive Statements ECTOPIC ATRIAL RHYTHM WITH SHORT DC INTERVAL BASELINE ARTIFACT- I, II, III, AVR, AVL, AVF ABNORMAL ECG Compared to ECG 09/30/2024 19:14:36 Ectopic atrial rhythm now present Short DC interval now present Electronically Signed On 06-19-2025 18:33:22 CDT by Fermin Forman D.O.
--- NOTE | 2025-06-19 15:21 | ED.SOB ---
HPI - SOB/Dyspnea General Chief Complaint: Shortness of Breath/Dyspnea Stated Complaint: SOB, cough, congested Time Seen by Provider: 06/19/25 15:08 History of Present Illness HPI Narrative: This is a a 49-year-old female with history of COPD, eczema, rheumatoid arthritis, PEs who presents to the ED for cough and shortness of breath. Patient states for the past 4 5 days, she denies any cough productive of yellow-green sputum and she has had worsening shortness of breath. She was seen in urgent care for this 3 days ago was diagnosed with a viral infection but her symptoms have been worsening. She has a nebulizer at home that she has not been using. She is not currently on any steroids. Denies fevers chills, chest pain. Related Data Home Medications ?Medication ?Instructions ?Recorded ?Confirmed ?Last Taken ?Type citalopram 40 mg tablet 40 mg PO DAILY 09/06/22 06/15/25 06/15/25 History atorvastatin 10 mg tablet 10 mg PO QPM 10/01/24 06/15/25 06/14/25 History bupropion HCl 300 mg 24 hr tablet, 300 mg PO DAILY 10/01/24 06/15/25 06/15/25 History extended release hydroxychloroquine 200 mg tablet 200 mg PO Q12H 10/01/24 06/15/25 06/15/25 History ergocalciferol (vitamin D2) 1,250 50,000 unit PO WEEKLY 11/10/24 06/15/25 06/15/25 History mcg (50,000 unit) capsule linaclotide 72 mcg capsule 72 mcg PO DAILY 02/09/25 06/15/25 06/15/25 History (Linzess) Allergies Allergy/AdvReac Type Severity Reaction Status Date / Time naproxen AdvReac Gastrointestinal Verified 06/19/25 14:39 Upset Review of Systems Review of Systems: Gen.: Denies fevers or chills Eyes: Denies eye pain or visual change ENT: Denies congestion Respiratory: As per HPI CV: Denies chest pain or palpitations GI: Denies abdominal pain nausea, emesis or diarrhea denies burning, urgency, frequency or hematuria Musculoskeletal: Denies back pain or muscle pain Neuro: Denies numbness, tingling, weakness or focal weakness Skin: Denies rash Except as documented, all other systems reviewed and negative PMFSH Past Medical History Medical History Irritable bowel syndrome with constipation Choking Rheumatoid arthritis Chronically dry eyes Former cigarette smoker History of rhabdomyolysis December 2023 Spondylosis, lumbosacral Degenerative disc disease, lumbar L4-S1 Degenerative disc disease, cervical C4-C7 Chronic back pain Neck and low back Irritable bowel syndrome Gastroesophageal reflux disease Chronic obstructive pulmonary disease Labral tear of right hip joint Asthma Depression Anxiety Surgical History Surgical History History of colonoscopy with polypectomy (~1999) History of right cataract surgery Status post anal fissurectomy History of section (2016) X1 History of tonsillectomy History of cholecystectomy Family History Family History Father Diabetes mellitus Hypertension Mother Hypertension Osteoarthritis Rheumatoid arthritis Grandparent Breast cancer Sibling Lupus Social History Social History Social History: She is . She lives at home with her 7-year-old daughter she has 2 grown sons other well. She smoked 1 pack of cigarettes per day for twenty-two years but quit in 2020. She denies any significant alcohol use. She denies illicit substance use. She works at an [employer]. Surrogate medical decision maker: Flakito Phelan, son. Code status: Full code. Smoking packs per day: 1 Smoking cigarettes per day: 20.0 Years smoked: 30 Smoking pack-years: 30.00 Smoking status: Former smoker Tobacco type: cigarettes Second hand tobacco smoke exposure: Yes Smoking end date: 09/02/20 Alcohol intake: never Substance use: never Substance use type: does not use Other substance usage details: denies IVDU Do You Feel Safe in your Home?: Yes Lack of Transportation: No Lack of Food: Sometimes True Current Housing: I Have Housing Concerned About Future Housing: No Difficulty Paying Gas/Electric Bills: YES Difficulty Paying for Meds: No Currently Unemployed: No Education: Trade/Vocational Certificate Difficulty w/ Childcare or Family Care: No Living arrangements: alone Additional living arrangements comments: sons and daughter Spiritual care concerns: No Exam Narrative: APPEARANCE: No acute distress, nontoxic, resting in bed EYES: EOMI HEENT: Normocephalic, atraumatic, OMM RESPIRATORY: No respiratory distress end-expiratory wheezes to the bilateral bases CARDIOVASCULAR: Regular rate and rhythm without murmurs rubs or gallops. ABDOMINAL: Soft, nontender, nondistended, no rebound or guarding MUSCULOSKELETAl: Moves all extremities. No clubbing, cyanosis or edema. NEURO: Awake and alert. Following commands, speech normal, no focal deficits SKIN:: Warm, dry. No rashes lesions or abrasions PSYCHIATRIC: Normal affect/mood, Course Vital Signs Vital signs: Vital Signs Temperature 97.8 F 06/19/25 14:36 Pulse Rate 81 06/19/25 14:36 Respiratory Rate 20 06/19/25 14:36 Blood Pressure 150/91 H 06/19/25 14:36 Pulse Oximetry 100 06/19/25 14:36 Oxygen Delivery Room Air 06/19/25 14:36 Temperature 97.8 F 06/19/25 14:36 Pulse Rate 89 06/19/25 16:47 Respiratory Rate 16 06/19/25 16:47 Blood Pressure 146/89 H 06/19/25 16:47 Pulse Oximetry 98 06/19/25 16:47 Oxygen Delivery Room Air 06/19/25 16:46 MDM - SOB/Dyspnea MDM Narrative Medical decision making narrative: 49-year-old female presenting for flu-like symptoms. On initial evaluation, patient was in no acute distress, afebrile, hemodynamically stable. She did have mild end expiratory wheezes to the bilateral bases. She was not in any respiratory distress. CBC and CMP were without significant abnormalities. EKG showed no concerning findings. Chest x-ray did reveal a right lower lobe pneumonia. Patient was given a DuoNeb, prednisone. She did have improvement of her breathing symptoms. Given her pneumonia and history of COPD, she will be started on Augmentin and doxycycline and prednisone. She was advised follow-up with her PCP in the next week for re-evaluation. Patient was agreeable to plan. Given strict return precautions. Differential Diagnosis Differential diagnosis: Likely acute exacerbation of chronic obstructive airways disease, community acquired pneumonia, asthma with exacerbation and pulmonary embolism Medical Records Attestation: I reviewed the patient's medical records. Lab Data Attestation: I reviewed the patient's lab results. 06/19/25 15:40 06/19/25 15:40 Labs: Lab Results 06/19/25 Range/Units 15:40 WBC 7.2 (4.5-10.0) K/mm3 RBC 3.56 L (4.2-5.4) M/mm3 Hgb 11.1 L (12.0-15.0) g/dL Hct 34.6 L (37.0-47.0) % MCV 97.2 (80-100) fl MCH 31.2 (26-34) pg MCHC 32.1 (32-36) g/dl RDW 12.3 (11.5-14.5) % Plt Count 266 (150-375) k/mm3 MPV 9.0 (7.4-10.4) fl Immature Gran % (Auto) 0.6 H (0-0.5) % Neut % (Auto) 70.8 (45.5-73.1) % Lymph % (Auto) 18.9 (18.3-44.2) % [place] % (Auto) 6.6 (2.6-8.5) % Eos % (Auto) 2.4 (0-4.4) % Baso % (Auto) 0.7 (0.2-1.2) % Lymph # (Auto) 1.37 (0.9-3.2) K/mm3 [place] # (Auto) 0.5 (0.1-0.6) K/mm3 Eos # (Auto) 0.2 (0-0.3) K/mm3 Baso # (Auto) 0.1 (0.0-0.1) K/mm3 Abs Immat Gran (auto) 0.04 H (0.00-0.031) K/mm3 Absolute Neuts (auto) 5.1 (1.3-6.7) K/mm3 Absolute Nucleated RBC 0.000 (0.0-0.012) K/mm3 Nucleated RBC % 0.0 (0.0-0.2) % Sodium 138 (137-145) mmol/L Potassium 3.9 (3.4-5.0) mmol/L Chloride 104 (98-107) mmol/L Carbon Dioxide 29 (22-30) mmol/L Anion Gap 5 (4-12) mmol/L BUN 7 (7-17) mg/dL Creatinine 0.60 L (0.7-1.0) mg/dL Estim Creat Clear Calc 100 ml/min Estimated GFR > 60 (59 - ) Glucose 89 (65-110) mg/dL Calcium 9.3 (8.4-10.2) mg/dL Total Bilirubin 0.1 L (0.2-1.3) mg/dL AST 21 (14-36) U/L ALT 16 (6-35) U/L Alkaline Phosphatase 80 (38-126) U/L Total Protein 6.6 (6.3-8.2) g/dL Albumin 4.1 (3.5-5.1) g/dL ECG Data EKG #1: Attestation: I personally reviewed and interpreted this ECG as follows: ECG completion date: 06/19/25 ECG completion time: 14:44 Interpretation: Normal sinus rhythm rate of 69, normal axis, short WA interval, no acute ST or T-wave changes Discharge Plan Discharge Clinical Impression: CAP (community acquired pneumonia), Acute exacerbation of chronic obstructive pulmonary disease Patient Disposition: Home Condition: Stable Instructions: Antibiotic Form, Community Acquired Pneumonia (ED) Additional Instructions: Chest x-ray showed pneumonia. Your given prescriptions for Augmentin, doxycycline, prednisone, take these as prescribed. Follow up with a PCP in the next week for re-evaluation. Return to the ED for any new or worsening symptoms. Patient Language: Icelandic Prescriptions: New prednisone 50 mg tablet 50 mg PO DAILY Qty: 4 0RF Rx Instructions: begin taking 06/20 doxycycline hyclate 100 mg capsule 100 mg PO Q12H Qty: 14 0RF amoxicillin-pot clavulanate 875-125 mg tablet 1 tablet PO Q12H Qty: 14 0RF No Action albuterol sulfate 90 mcg/actuation HFA aerosol inhaler 2 puff inhalation Q4-6H PRN (Reason: shortness of breath or wheezing) 30 Days Qty: 8.5 0RF ferrous sulfate [FeroSul] 325 mg (65 mg iron) tablet 325 mg PO DAILY Qty: 90 2RF ergocalciferol (vitamin D2) 1,250 mcg (50,000 unit) capsule 50,000 unit PO WEEKLY Linzess 72 mcg capsule 72 mcg PO DAILY naloxone [Narcan] 4 mg/actuation spray,non-aerosol 4 mg intranasal Q2M PRN (Reason: opioid overdose) Qty: 2 0RF Rx Instructions: spray 1 dose into ONE nostril; alternate nostrils w each dose until help arrives. Must bring to the Pain Pump trial and to be kept at home during recovery of the trial. triamcinolone acetonide 0.1 % ointment 1 applic topical DAILY Qty: 80 1RF citalopram 40 mg tablet 40 mg PO DAILY atorvastatin 10 mg tablet 10 mg PO QPM bupropion HCl 300 mg tablet extended release 24 hr 300 mg PO DAILY hydroxychloroquine 200 mg tablet 200 mg PO Q12H hyoscyamine sulfate 0.125 mg tablet,disintegrating See Rx Instructions .ROUTE .COMPLEX Qty: 30 0RF Dose Instruction: DISSOLVE 1 TABLET BY MOUTH EVERY 4-8 HOURS NEEDED Rx Instructions: DISSOLVE 1 TABLET BY MOUTH EVERY 4-8 HOURS NEEDED budesonide-formoterol [Symbicort] 160-4.5 mcg/actuation HFA aerosol inhaler See Rx Instructions .ROUTE .COMPLEX Qty: 10.2 6RF Dose Instruction: INHALE 2 PUFFS BY MOUTH EVERY 12 HOURS Rx Instructions: INHALE 2 PUFFS BY MOUTH EVERY 12 HOURS carbamazepine 200 mg tablet See Rx Instructions .ROUTE .COMPLEX Qty: 60 2RF Dose Instruction: TAKE 1 TABLET BY MOUTH EVERY 12 HOURS Rx Instructions: TAKE 1 TABLET BY MOUTH EVERY 12 HOURS pantoprazole 40 mg tablet,delayed release (DR/EC) 40 mg PO BID Qty: 60 2RF methocarbamol 500 mg tablet See Rx Instructions .ROUTE .COMPLEX Qty: 90 0RF Dose Instruction: TAKE 1 TABLET BY MOUTH THREE TIMES DAILY NEEDED FOR MUSCLE SPASM Rx Instructions: TAKE 1 TABLET BY MOUTH THREE TIMES DAILY NEEDED FOR MUSCLE SPASM famotidine 40 mg tablet See Rx Instructions .ROUTE .COMPLEX Qty: 90 0RF Dose Instruction: TAKE 1 TABLET BY MOUTH AT BEDTIME Rx Instructions: TAKE 1 TABLET BY MOUTH AT BEDTIME furosemide 20 mg tablet 20 mg PO DAILY Qty: 90 0RF prochlorperazine maleate 5 mg tablet See Rx Instructions .ROUTE .COMPLEX Qty: 20 0RF Dose Instruction: TAKE 1 TABLET BY MOUTH EVERY 8 HOURS NEEDED FOR NAUSEA OR VOMITING Rx Instructions: TAKE 1 TABLET BY MOUTH EVERY 8 HOURS NEEDED FOR NAUSEA OR VOMITING Follow-up/Referrals: Keven Gonzalez, [Primary Care Provider, Family Practice]
--- OUTSIDE RECORDS SUMMARY | 2025-06-19 15:29 | XMS_ITS | Clinical Summary ---
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 Does NOT exclude the possibility of recent exposure to HCV. Current interpretive data was last revised on 22 Blood 07/15/2024 12:4 9 PM REPLENISHMENT ASSOCIATE 07/15/2024 1:25 PM REPLENISHMENT ASSOCIATE us Jessie Sherwood MD LAB MICROBIOLOGY - GENERAL ORDERABLES Final Result [facility] Department [place] [address] from Last 3 Months or Most Recently Relevant to Health Maintenance Insurance [facility] [place] [address] [place] [address] Care Teams Blade Boner Relationship Specialty Start Date End Date Keven Gonzalez DO [address] [place] [address] PCP - General Family Medicine 05/29/24 Kendrick Chacon MD Emergency Medicine 04/27/20 Edy Yadav MD [address] [facility] [address] Consulting Physician Pain Management 04/28/21
--- OUTSIDE RECORDS SUMMARY | 2025-06-19 15:29 | XMS_ITS | Clinical Summary ---
Author Organization [facility] Address [address] [place] [address] Care Team Providers Care Batch Mixer Operator Name Role Phone Keven Gonzalez DO Primary Care Provider [phone] Source Comments [facility],non-owned Affiliates and Associated Physician Practices is amultiple site organization consisting of ambulatory clinics and hospital sitesin [place], [place], [place] and [place]. This disclosure is being madepursuant to the Care Everywhere program and may not contain all information available regarding this patient. Last updated 18.[facility] Allergies Active Allergy Reactions Criticality Noted Date [...] Active vitamin D, ergocalciferol, (DRISDOL) 1.25 MG (89409 UT) capsule TAKE 1 CAPSULE BY MOUTH [...] naloxone HCl (Narcan) 4 MG/0.1ML nasal spray [place] 1 (one) spray into the nose as [...] [facility] - Centralized Scheduling [address] [place] [phone] Maximo Haywood MD Reschedule Appointment (05/27-Left message to vishule Chastity's 08/12 appt- reschedule to the next available-MyChart note entered on 05/24-Not read--DLM-MS) 05/19/2025 Telephone [facility] - ENT 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 Gender Identity Not on file Sexual Orientation [...] st Contact Info) Description 09/09/2025 10:00 AM WINE MASTER Office Visit [facility] - ENT [address] [place] [address] Maximo Haywood MD [address] [place] [address] [address] [place] [address] Health Maintenance Due Date Last Done Comments [...] patient's age to complete this topic Insurance [facility] SELF PAY NO INSURANCE Member Subscriber Plan / Payer (Ef fective for All Dates) Name:[employer] Anat K Relation to Subscriber:Self Name:Anat Phelan Amanda Payer ID:Not on file Group ID:Not on file Type:Self Pay Address: [place], [place] Advance Directives Documents on File Type Date Recorded Patient Qa Manager Expl anation Adv Directive/Living Will/POA 01/01/2017 * Full Code (Latest Code Status on File) Date Activated Date Inactivated Comments 01/01/2017 7:27 PM 01/01/2017 9:50 PM Care Teams Batch Mixer Operator Relationship Specialty Start Date End Date Keven Gonzalez DO [address] [place] [address] PCP - General Family Medicine 05/13/25
[2025-06-19 15:40] VITALS: PULSE 66; RESP 19
[2025-06-19] MEDS: IPRATROPIUM 0.5 MG/ALBUTEROL SULFATE 2.5 MG (BASE) AMPUL.NEB 3 ML INHALATION (15:41)
[2025-06-19 15:46] VITALS: PULSE 66; RESP 19
[2025-06-19 15:49] LABS: Hematocrit 34.6 % (37.0-47.0); Hemoglobin 11.1 g/dL (12.0-15.0); Immature Granulocyte Percent A 0.6 % (0-0.5); Lymphocytes Absolute Auto 1.37 K/mm3 (0.9-3.2); Mean Corpuscular HGB Conc 32.1 g/dl (32-36); Mean Corpuscular Hemoglobin 31.2 pg (26-34); Mean Corpuscular Volume 97.2 fl (80-100); Nucleated Red Blood Cells Absolute Auto 0.000 K/mm3 (0.0-0.012); Nucleated Red Blood Cells Perc 0.0 % (0.0-0.2); Platelet Count Result 266 k/mm3 (150-375); Red Blood Count 3.56 M/mm3 (4.2-5.4); White Blood Count 7.2 K/mm3 (4.5-10.0)
[2025-06-19 16:02] LABS: Alanine Aminotransferase 16 U/L (6-35); Albumin Level 4.1 g/dL (3.5-5.1); Alkaline Phosphatase 80 U/L (38-126); Anion Gap 5 mmol/L (4-12); Aspartate Amino Transferase 21 U/L (14-36); Bilirubin,Total 0.1 mg/dL (0.2-1.3); Blood Urea Nitrogen 7 mg/dL (7-17); Calcium 9.3 mg/dL (8.4-10.2); Carbon Dioxide 29 mmol/L (22-30); Chloride 104 mmol/L (98-107); Estimated CRCL calculation 100 ml/min; Estimated Glomerular Filt Rate > 60; Glucose 89 mg/dL (65-110); Potassium 3.9 mmol/L (3.4-5.0); Sodium 138 mmol/L (137-145); Total Protein 6.6 g/dL (6.3-8.2)
[2025-06-19 16:46] VITALS: O2SAT 98
[2025-06-19 16:47] VITALS: BP 146/89; PULSE 89; RESP 16; O2SAT 98
== END 2025-06-19 16:48 | disposition home or self-care (01) ==
PROVIDERS: Emergency Medicine; Emergency Provider Student in an Organized Health Care Education/Training Program; PCP Family Medicine
DX: J18.9 Pneumonia, unspecified organism (principal); J44.1 Chronic obstructive pulmonary disease with (acute) exacerbation; K58.1 Irritable bowel syndrome with constipation; M06.9 Rheumatoid arthritis, unspecified; M51.369 Other intervertebral disc degeneration, lumbar region without mention of lumbar back pain or lower extremity pain; M50.321 Other cervical disc degeneration at C4-C5 level; K21.9 Gastro-esophageal reflux disease without esophagitis; F41.9 Anxiety disorder, unspecified; F32.A Depression, unspecified; Z87.891 Personal history of nicotine dependence; Z86.0100 Personal history of colon polyps, unspecified; Z98.41 Cataract extraction status, right eye; Z90.49 Acquired absence of other specified parts of digestive tract; Z79.899 Other long term (current) drug therapy; R94.31 Abnormal electrocardiogram [ECG] [EKG]
CPT/HCPCS: 36415; 71046; 80053; 85025; 93005; 94640; 99284; J7512

== ENCOUNTER 2025-08-16 01:03 | Day surgery (SDC) | payer OTHER, SELFPAY ==
[2025-08-13 08:35] VITALS: BMI 29.9
--- NOTE | 2025-08-13 08:48 | PC.NURSE ---
[facility] has started construction of its new state of the art ER which will open Spring 2026. With this, we anticipate parking may be a challenge for some our surgical patients and families. Parking spaces are limited but are available for all Surgical, obstetrics, and ER patients sharing this lot. If you arrive and find you are having a hard time finding a parking space, please note that we understand the challenges, please drive around the hospital and park near Hospital Entrance 1. When you enter this entrance, you can ask a volunteer to direct or take you back to the surgical waiting area to check in. We appreciate everyone?s understanding of these expected challenges while we build for your future. Report to the Outpatient Waiting Room, entrance under the green pavilion located off [address] [address], at time __1000am on date __08/16/25 . Planned Procedure Time: _12:00 .? Time changes happen often and if your time is changed the preop area will call you the afternoon before. - You and your visitor will be asked to self-screen and do not enter if you have any COVID symptoms. Please call surgeon if you need to reschedule. - A mask is optional within the hospital at this time. Patients may have - No food or drink from midnight until time of surgery and no smoking, or chewing tobacco (or any form of nicotine). No chewing gum, candy or mints. Take only the following medications with a SIP of water on the morning of surgery: __Inhalers, Buproprion , Citalopram, Methocarbanol DO NOT STOP ANY OF YOUR OTHER PRESCRIPTION MEDICATIONS PRIOR TO SURGERY EXCEPT THE FOLLOWING Hold all vitamins and supplements for 3 days per anesthesiologist. Medications to discontinue per physician ____NONE Date to take last dose NONE Please no make-up, nail chinese, hairspray, perfume, deodorant, or body powder the day of surgery.? No jewelry (including any body piercings) or valuables the day of surgery, leave them at home.? Please take a shower or bath the night before, & the morning of, surgery with an antibacterial soap DIAL SOAP.? Wear comfortable, loose fitting clothing.? - Jewelry must be removed prior to entering the operating room.? Rings and piercings that are not removed may be cut off. - The hospital will not accept responsibility for valuables.? - Please leave all valuables, including medications, at home the day of surgery. If you are going home after surgery, a licensed gas truck driver must drive you home.? - NO public transportation without another adult if you receive anesthesia. - We recommend that an adult stay with you for 24 hours following discharge. - We also recommend that you do not drive, make important decision, drink alcoholic beverages, or take any drugs that were not prescribed by your health care provider for at least 24 hours after your discharge time. Pt aware she cannot drive for [address] BECERRA. Follow any additional instructions given to you from your surgeon. Telephone instructions given to ___Patient and asked if any additional questions and then verbalized understanding. Patient advised to call surgeon office or pre surgery nurse liaison [phone] if any additional questions.
[2025-08-16] VITALS (9 sets, daily range): BP systolic 105–149; BP diastolic 60–72; PULSE 62–72; RESP 12–17; TEMP 36.2–36.4; O2SAT 98–100; BMI 28.5
--- NOTE | ~2025-08-16 | XR_ITS ---
EXAM/PROCEDURE: XR fluoroscopy no charge HISTORY: PAIN PUMP COMPARISON: None available. TECHNIQUE: Fluoroscopic assisted procedure. Fluoroscopy time: 4 minutes 18.1 seconds. DAP: 25.6-2 [place] per square centimeter IMPRESSION: Images of the thoracolumbar region of the spine. No radiologist present. See procedure/operative notes for complete details. Reviewed, dictated and finalized at location A. GER OF DRILLING IMPRESSION: Images of the thoracolumbar region of the spine. No radiologist present. See pr ocedure/operative notes for complete details.
--- OUTSIDE RECORDS SUMMARY | 2025-08-16 01:05 | XMS_ITS | Data Portability ---
Author Organization [facility] code-laboration, Main Office Address [address] [place] [address] Assessment Encounter Date Assessment Date Assessment LastModified [...] per schedule. Cont f/u with Psych at [facility] as per schedule. Cont f/u with Gyne at [facility] as per schedule. HM: WWE - 06/23, [...] Pt will be calling her Pulmo at [facility] and see if she can be seen sooner. Pt declined for referral to Cardio. All meds verified with pt. Critz 5/325 # 40 given today until she can see Sr. Pricing Analyst. Meds as directed. Good liquid and fiber intake explained. Diet and exercise explained in detail. BP diary education given and call us if any concerns. F/u with PT as per schedule. F/u with GI as per schedule. Cont f/u with Pulmo at [facility] as per schedule. Cont f/u with Psych at [facility] as per schedule. Cont f/u with Gyne at [facility] as per schedule. HM: WWE - 06/23, [...] be seeing her Pulmo on 04/08/24 at [facility]. Will refer pt to Cardio, Pain clinic. [...] per schedule. Cont f/u with Pulmo at [facility] as per schedule. Cont f/u with Psych at [facility] as per schedule. Cont f/u with Gyne at [facility] as per schedule. HM: WWE - 06/23, [...] per schedule. Cont f/u with Pulmo at [facility] as per schedule. Cont f/u with Psych at [facility] as per schedule. Cont f/u with Gyne at [facility] as per schedule. Educated pt about alarming [...] F/u as directed. Annual labs in 06/25. Not available 04/09/2024 14:37:51 Plan of Treatment Reminders Order Date Submit Date Provider Last Modified By Organization Details Last Modified Time Details Appointments None recorded. Lab noninvasive colorectal cancer DNA + occult blood screening, QL, stool 2023 024 [email or web address], [address], [address], [place], [address], 17:19:08 lipid panel, serum [address] (Lab), [address] [place], [address], 4 08:11:23 lipid panel, serum [address] (Lab), [address] [place], [address], 08:30:44 Referral neurologist referral - Please call patient to schedule an appointment . Thank you. 2023 024 [email or web address] [facility] - Neurology, [address] [facility], [place], [address], 08:52:35 cardiologis t referral - Please call patient to schedule an appointment . Thank you. 2023 024 [email or web address] [facility] Heart And Vascular Referral Fax Line, [address] [facility], [facility] [address], [place], [address], 07:47:52 pain management referral - Please call patient to schedule an appointment . Thank you. 2023 024 [email or web address] [facility] Pain Management, [address] [facility] [address], [place], [address], 4 07:46:41 hematologis t referral - Multiple PEs, ex-smoker. Please call patient to schedule an appointment . Thank you. 2023 024 [email or web address] Matthew Whitman Nae TUCKER, [address] [facility], [address], [place], [address], 08:54:02 gastroenter ologist referral - Patient has new onset intussuscep tion , found on CT 01/21, not present on CT 12/12. Diverticulo sis. Please call patient to schedule an appointment . Thank you. 2023 024 [email or web address] [facility] - Gastroenterol ogy, [address], [address], [place], [address], 4 08:51:43 gastroenter ologist referral - Please call patient to schedule an appointment . 2023 024 [email or web address] Brenden Carlson MD, [address] [facility], [address], [place], [address], 4 08:35:15 Procedures None recorded. Surgeries None recorded. Imaging XR, hand, 3 or more view 2023 024 [email or web address] [id number] Not available 09:04:28 Medication Orders ipratropium 0.5 mg-albutero l 3 mg (2.5 mg base)/3 mL nebulizatio n soln 2023 024 [facility] #01589, [address] [facility], [place], [place], [id number], 4 12:05:29 albuterol sulfate HFA 90 mcg/actuati on aerosol inhaler 2023 [facility] #91874, [address], [place], [place], [id number], 4 12:05:29 furosemide 20 mg tablet 2023 [facility] #31570, [address], [place], [place], [id number], 4 12:05:30 omeprazole 40 mg capsule,del ayed release 2023 [facility] #80040, [address], [place], [place], [id number], 4 12:05:30 famotidine 40 mg tablet 2023 [facility] #16139, [address], [place], [place], [id number], 4 12:05:29 atorvastati n 10 mg tablet 2023 [facility] #79797, [address], [place], [place], [id number], 4 12:05:33 ipratropium 0.5 mg-albutero l 3 mg (2.5 mg base)/3 mL nebulizatio n soln 2023 024 [facility] #95823, [address], [place], [place], [id number], 4 16:00:21 Eliquis 5 mg tablet 2023 024 [facility] #77116, [address], [place], [place], [id number], 4 16:00:24 albuterol sulfate HFA 90 mcg/actuati on aerosol inhaler 2023 024 [facility] #39523, [address] [facility], [place], [place], [id number], 4 16:00:26 furosemide 20 mg tablet 2023 024 [facility] #37706, [address] [facility], [place], [place], [id number], 4 16:00:26 gabapentin 600 mg tablet 2023 024 [facility] #88761, [address] [facility], [place], [place], [id number], 4 16:00:23 baclofen 20 mg tablet 2023 024 [facility] #84070, [address] [facility], [place], [place], [id number], 4 16:00:31 atorvastati n 10 mg tablet 2023 024 [facility] #48884, [address] [facility], [place], [place], [id number], 4 16:00:27 ergocalcife rol (vitamin D2) 1,250 mcg (50,000 unit) capsule 2023 024 [facility] #23534, [address] [facility], [place], [place], [id number], 4 16:00:29 omeprazole 40 mg capsule,del ayed release 2023 024 [facility] #08084, [address] [facility], [place], [place], [id number], 4 16:00:27 famotidine 40 mg tablet 2023 024 [facility] #42711, [address] [facility], [place], [place], [id number], 4 16:00:21 ipratropium 0.5 mg-albutero l 3 mg (2.5 mg base)/3 mL nebulizatio n soln 2023 [facility] #69281, [address] [facility], [place], [place], [id number], 4 10:22:20 Eliquis 5 mg tablet 2023 [facility] #26635, [address] [facility], [place], [place], [id number], 4 10:22:22 hydrocodone 5 mg-acetamin ophen 325 mg tablet 2023 [facility] #94755, [address] [facility], [place], [place], [id number], 4 10:22:59 albuterol sulfate HFA 90 mcg/actuati on aerosol inhaler 2023 024 [facility] #19792, [address] [facility], [place], [place], [id number], 4 10:23:13 furosemide 20 mg tablet 2023 024 [facility] #88646, [address] [facility], [place], [place], [id number], 4 10:46:07 atorvastati n 10 mg tablet 2023 024 [facility] #61219, [address] [facility], [place], [place], [id number], 4 10:22:22 gabapentin 300 mg capsule 2023 024 [email or web address] [facility] #10981, [address] [facility], [place], [place], [id number], 4 16:01:49 ergocalcife rol (vitamin D2) 1,250 mcg (50,000 unit) capsule 2023 024 [facility] #86808, [address] [facility], [place], [place], [id number], 4 10:22:22 omeprazole 40 mg capsule,del ayed release 2023 024 [facility] #25315, [address] [facility], [place], [place], [id number], 4 10:22:24 famotidine 40 mg tablet 2023 024 [facility] #33391, [address] [facility], [place], [place], [id number], 4 10:22:21 docusate sodium 100 mg capsule 2023 024 [facility] #84679, [address] [facility], [place], [place], [id number], 4 14:26:23 phentermine 37.5 mg tablet 2023 024 [email or web address] [facility] #79483, [address] [facility], [place], [place], [id number], 4 10:13:02 diclofenac sodium 75 mg tablet,tarsha yed release 2023 024 [facility] #78438, [address] [facility], [place], [place], [id number], 4 10:36:23 atorvastati n 10 mg tablet 2023 024 [facility] #94940, [address] [facility], [place], [place], [id number], 4 10:32:43 phentermine 37.5 mg tablet 2023 024 [email or web address] [facility] #96978, [address] [facility], [place], [place], [id number], 4 10:13:02 ergocalcife rol (vitamin D2) 1,250 mcg (50,000 unit) capsule 2023 024 [facility] #18175, [address] [facility], [place], [place], [id number], 4 10:32:39 omeprazole 40 mg capsule,del ayed release 2023 024 [facility] #77538, [address] [facility], [place], [place], [id number], 4 10:32:40 famotidine 40 mg tablet 2023 024 [facility] #24454, [address] [facility], [place], [place], [id number], 4 10:32:42 Patient TargetsNo targets recorded. Patient Instructions Encounter Date Encounter Id Patient Instructions Last Modified By Organization Details Last Modified Time 10/24/2023 [id number] learning about obesity [email or web address] Not available 10/24/2023 10:32:32 03/12/2024 [id number] learning about obesity Not available 03/12/2024 10:22:13 [...] Medical Equipment needed: Billing Guidelines CPT code 29120- Transitional Care Management services with moderate medical decision complexity (qxbk-cl-etxz visit within 14 days of discharge). CPT code 00240- Transitional Care Management services with high medical decision complexity (pjmz-dx-dnbi visit within 7 days of discharge). Not available 03/12/2024 09:52:22 03/31/2024 [id number] learning about obesity [email or web address] Not available 03/31/2024 16:00:11 Thank you for [...] to discuss. Not available 03/31/2024 15:42:48 04/09/2024 [id number] Thank you for your visit to our [...] Not available 04/09/2024 11:46:58 Reason for Referral Spa Manager/Esthetician Referral for Screening colonoscopy Please call patient to schedule an appointment. Referring Physician: Ang Patterson [facility], Encounter Date: 10/24/2023 Spa Manager/Esthetician Referral for Intussusception of small intestine Patient has new onset intussusception , found on CT 01/21, not present on CT 12/12. Diverticulosis. Please call patient to schedule an appointment. Thank you. Referring Physician: Janneth Rogers [facility], Encounter Date: 01/29/2024 Multiple PEs, ex-smoker. Ple ase call patient to schedule an appointment. Thank you. Referring Physician: Ang Patterson [facility], Encounter Date: 03/12/2024 Pain Management Referral for Cervical spondylosis without myelopathy Please call patient to schedule an appointment. Thank you. Referring Physician: Ang Patterson [facility], Encounter Date: 03/31/2024 Artillery Officer Referral for Dy spnea on exertion Please call patient to schedule an appointment. Thank you. Referring Physician: Ang Patterson [facility], Encounter Date: 03/31/2024 Neurologist Referral for Kory mor B/l UE tremors for last 1-2 weeks. Please call patient to schedule an appointment. Thank you. Referring Physician: Ang Patterson [facility], Encounter Date: 04/09/2024 Results Created Date Observation Date Name Description Value Unit Range Abnormal Flag Note LastModifiedBy Organization Detail LastModifiedTime 10/01/19 24 10/02/2023 HELIC OBACT ER PYLOR I AG, EIA, STOOL helicobacter pylori Ag, EIA, stool SEE NOTE HELIC OBACT ER PYLOR I AG, EIA, STOOL Micro Numbe r: [id number] Test Statu s: Final Speci men [...] Range : Not Detec leti Not Available [facility] [address], [place], [address], 10/02/2023 13:18:31 04/07/20 24 04/07/2024 COLOG UARD [...] of 10,00 0 indiv idual s at [place] risk for color ectal cance r who were scree harmeet with both Colog uard and colon oscop y. (Shama Carey et al, N Engl J Med 2014; 370(1 4):12 86-12 97) The sharan l value (refe rence range ) for this assay is negat ajmey. COLOG UARD RE-SC REENI NG RECOM MENDA TION: Perio dic color ectal cance r scree audra is an impor tant part of preve ntive healt hcare for asymp tomat ic indiv idual s at [facility] risk for color ectal cance [...] 112:1 016-1 030. TEST DESCR IPTIO N: [place] site algor ithmi c genesis sis of [...] years or older , who are at the medical center for color ectal cance r ([facility]) . Colog uard has been appro rohan for use by the [place]. FDA. The perfo rmanc e of Colog uard was estab lishe d in a cross secti onal study of the medical center adult s aged 50-84 . [...] study of 0 indiv idual s at [place] risk for color ectal cance r who were scree harmeet with both Colog uard and colon oscop y. (hSama Carey et al, N Engl J Med [...] at [email or web address] sang [email or web address].c om. Not Available [facility] [address], [place], [address], 04/11/2024 17:19:08 12/13/19 24 12/13/2023 CT, abdom en + pelvi s, w/ contr ast No observ ation record ed. [place] [address], [place], [address], 12/23/2023 09:42:22 12/30/19 24 12/30/2023 CT, cervi bimal spine , w/o contr ast No observ ation record ed. [email or web address] [address], [place], [address], 12/30/2023 14:14:10 12/30/19 24 12/30/2023 XR, lumbo sacra l spine , 2 or 3 view No observ ation record ed. [email or web address] [facility] [address], [place], [address], 12/30/2023 14:14:21 01/22/20 24 01/22/2024 XR, chest No observ ation record ed. [email or web address], [place], [address], 01/22/2024 11:16:05 01/22/20 24 01/22/2024 LDCT, chest , for lung cance r scree audra No observ ation record ed. [address] [facility], [place], [address], 01/22/2024 17:06:54 01/22/20 24 01/22/2024 CT, angio gram, chest , w/ contr ast No observ ation record ed. [place] [address], [place], [address], 03/12/2024 11:08:31 02/24/20 24 02/24/2024 US, doppl er echoc ardio gram No observ ation record ed. [address] [facility], [place], [address], 03/12/2024 10:02:16 03/25/20 24 03/25/2024 XR, chest , 2 view No observ ation record ed. [address], [place], [address], 03/31/2024 15:49:25 03/25/20 24 03/25/2024 CT, angio gram, chest , w/ contr ast No observ ation record ed. [place] [address], [place], [address], 03/31/2024 15:49:25 04/02/20 24 04/02/2024 CT, brain , w/o contr ast No observ ation record ed. [address], [place], [address], 04/09/2024 11:57:47 04/02/20 24 04/02/2024 XR, chest No observ ation record ed. [address], [place], [address], 04/09/2024 11:57:47 04/29/20 24 04/08/2024 imagi ng/di agnos tic resul t No observ ation record ed. [address], [place], [address], 04/29/2024 09:51:53 Result Notes None recorded. Problems Name Problem SNOMED Code Status Onset Date Resolution Date Notes Provider Name and Address Organization Details Recorded Time Depressive disorder 45755760 Active 2022 Ang Patterson MD [address], [place], [address], [employer] 3 15:00:33 Anxiety disorder 275619771 Active 2022 Ang Patterson MD [address], [place], [address], [employer] 3 15:00:39 Post-trauma tic stress disorder 30459779 Active 2022 Ang Patterson MD [address], [place], [address], [employer] 3 15:00:45 Obesity 138312335 Active 2022 Ang Patterson MD [address], [place], [address], [employer] 3 15:01:02 Chronic neck pain 6666301715217 Active 2022 Ang Patterson MD [address], [address], [place], [address], [employer] 3 15:03:12 Chronic low back pain 310466022 Active 2022 Ang Patterson MD [address], [address], [place], [address], [employer] 3 15:03:20 Cervical spondylosis without myelopathy 896084444 Active 2022 Ang Patterson MD [address], [address], [place], [address], [employer] 3 15:17:42 Ex-smoker 5917789 Active 2022 Ang Patterson MD [address], [address], [place], [address], [employer] 3 15:17:55 Degeneratio n of cervical interverteb ral disc 36814808 Active 2022 Ang Patterson MD [address], [address], [place], [address], [employer] 3 14:38:13 Otalgia of right ear 3736720339 Active 2022 Ang Patterson MD [address], [address], [place], [address], [employer] 3 09:56:32 Chronic idiopathic constipatio n 54893742 Active 2022 Ang Patterson MD [address], [address], [place], [address], [employer] 3 09:58:26 Gastroesoph ageal reflux disease without esophagitis 530444841 Active 2022 Ang Patterson MD [address], [address], [place], [address], [employer] 3 09:59:58 Xerostomia 86592308 Active 2022 Ang Patterson MD [address], [address], [place], [address], [place] [facility] 3 10:05:03 Anemia 448239651 Active 2022 Ang Patterson MD [address], [place], [address], [employer] [place] [facility] 3 14:59:07 Vitamin D deficiency 88952843 Active 2023 Ang Patterson MD [address], [address], [place], [address], [employer] [place] [facility] [employer] 4 10:31:01 Hyperlipide ana 23823424 Active 2023 Ang Patterson MD [address], [place], [address], [employer] [place] [facility] 4 10:31:30 Pain of bilateral hands 5363133949343 9109 Active 2023 Ang Patterson MD [address], [place], [address], [employer] [place] [facility] 4 10:34:43 Intussuscep tion of small intestine 675999179 Active 2023 SHIRA Mckeon [address], [place], [address], [place] [facility] 4 14:12:52 Pulmonary embolism 06701237 Active 2023 Ang Patterson MD [address], [place], [address], [employer] [place] [facility] 4 10:05:37 Pulmonary embolism with pulmonary infarction 3798147888956 Active 2023 Ang Patterson MD [address], [place], [address], [place] [facility] [employer] [facility] 4 10:13:28 Dyspnea on exertion 12899509 Active 2023 Ang Patterson MD [address], [place], [address], [facility] 4 15:57:53 Tremor 82858442 Active 2023 Ang Patterson MD [address], [place], [address], [facility] 4 11:59:25 Problem Notes None recorded. Procedures Surgical History Date Name Laterality Status Provider Name and Address Organization Details Recorded Time 03/31/2024 Transition al_Care_Ma nagement completed [facility] 03/31/2024 15:42:49 03/12/2024 Transition al_Care_Ma nagement completed [facility] 03/12/2024 09:52:22 Imaging Results None [...] Details Last Updated DateTime 10/24/2023 32.5 kg/m2 57655.86 g Ang Patterson MD [address] [facility] [address], [place], [address], [facility] 10/24/2023 10:40:55 Date Recorded Body height Body temperature Heart rate Respiratory rate Oxygen saturation Systolic And Diastolic Provider Name and Address Organization Details Last Updated DateTime 165.1 cm 98 [degF] 98 /min 20 /min 99 % 132/72 mm[Hg] Alexx Resendiz [facility] [employer] [facility] 4 10:05:54 Date Recorded Body height Body temperature Heart rate Oxygen saturation Body mass index (BMI) Body weight Systolic And Diastolic Provider Name and Address Organization Details Last Updated DateTime 165.1 cm 98.7 [degF] 89 /min 98 % 33 kg/m2 51221.4 4 g 173/102 mm[Hg] Tana Brown MA [facility] [employer] [facility] 14:07:48 Date Recorded Heart rate Respiratory rate Oxygen saturation Inhaled oxygen flow rate Systolic And Diastolic Provider Name and Address Organization Details Last Updated DateTime 100 /min 24 /min 90 % 2 L/min 146/88 mm[Hg] Ang Patterson MD [address], [place] [address], [place], [address], [facility] [employer] [facility] 10:41:10 Date Recorded Body height Body mass index (BMI) Body weight Body temperature Provider Name and Address Organization Details Last Updated DateTime 03/12/2024 165.1 cm 30.5 kg/m2 15246.75 g 98.2 [degF] Alexx Resendiz [facility] 03/12/2024 09:56:29 Date Recorded Heart rate Respiratory rate Oxygen saturation Inhaled oxygen flow rate Provider Name and Address Organization Details Last Updated DateTime 03/31/2024 110 /min 22 /min 94 % 2 L/min Ang Patterson MD [address], [place] [address], [place], [address] , [facility] 03/31/2024 16:08:35 Date Recorded Body height Body mass index (BMI) Body weight Body temperature Systolic And Diastolic Provider Name and Address Organization Details Last Updated DateTime 03/31/2024 165.1 cm 32.1 kg/m2 56557.3 8 g 98.1 [degF] 144/90 mm[Hg] lAexx Resendiz [facility] 15:47:52 Date Recorded Heart rate Oxygen saturation Provider Name and Address Organization Details Last Updated DateTime 04/09/2024 96 /min 96 % Ang Patterson MD [address], [place] [address], [place], [address], [facility] 04/09/2024 12:43:19 Date Recorded Body height Body mass index (BMI) Body weight Body temperature Respiratory rate Systolic And Diastolic Provider Name and Address Organization Details Last Updated DateTime 165.1 cm 31.8 kg/m2 06106.4 9 g 97.9 [degF] 16 /min 146/86 mm[Hg] Alexx Resendiz [facility] 11:51:44 Social History Question Answer Notes LastModified by Organizat ion Details LastModified Time Tobacco Smoking Status Former Smoker Ang Patterson MD [address], [place], [address], [facility] [employer] [facility] 04/23/2023 15:18:12 Do You Have An Advance [...] Or The Highest Degree You Have Received? [id number] Information not available 04/23/2023 Have There Been [...] Do You Have A Medical Power Of Computer Operations Technician? No Information not available 04/23/2023 How [...] anxious, or unable to sleep at night)? [id number] Information not available 04/23/2023 Family History Nothing [...] HAVE YOU BEEN HOSPITALIZED OR SEEN IN [facility] IN THE PAST YEAR ? N [...] ICD10 Code Diagnosis IMO Codes Diagnosis Note [id number] Ang Patterson MD [address] [address] 04/23/2023 14:37:09 04/23/2023 15:24:12 Depressive disorder 21783024 F32.A Anxiety disorder 8643972 06 F41.9 Post-traum atic stress disorder 02980039 F43.10 Obesity 197236736 E66.9 Ex-smoker 7607227 Z87.89 1 Chronic neck pain 714640 0999 107 M54.2 Chronic low back pain 27 8069943 M54.50 Cervical s pondylosis without myelopathy 535368795 M47.593 [id number] Ang Patterson MD [address] [address] 05/14/2023 17:26:14 05/14/2023 17:49:44 Chronic neck pain 6161424567 107 M54.2 Chronic low back pain 27 7386463 M54.50 Cervical s pondylosis without myelopathy 500970609 M47.812 Depressive disorder 3548 9007 F32.A Anxiety disorder 6759974 06 F41.9 Post-traum atic stress disorder 43543603 F43.10 Obesity 239168454 E66.9 Ex-smoker 4999936 Z87.89 1 Degenerati on of cervical intervertebral disc 05943628 M50.30 [id number] Ang Patterson MD [place] [address] 06/04/2023 09:43:47 06/04/2023 10:27:29 Adult health examination 715980612 Z00.00 Chronic neck pain 184420 9073 107 M54.2 Chronic low back pain 27 9063170 M54.50 Obesity 417155117 E66.9 Ex-smoker 2902596 Z87.89 1 Otalgia of right ear 743 0572772 H92.01 Screening colonoscopy 44 0720164 Z12.11 Chronic id iopathic constipation [id number] K59.04 Gastroesop hageal reflux disease without esophagitis 285842876 K21.9 Screening mammography 24 757314 Z12.31 Cervical s pondylosis without myelopathy 659061107 M47.812 Xerostomia 78184015 R68. 2 [id number] Ang Patterson MD [place] 80962294-144 1 06/25/2023 14:39:36 06/25/2023 15:24:08 Chronic neck pain 0036388295 107 M54.2 Chronic low back pain 27 2327814 M54.50 Obesity 945320680 E66.9 Ex-smoker 0788710 Z87.89 1 Chronic id iopathic constipation 28501295 K59.04 Gastroesop hageal reflux disease without esophagitis 945681941 K21.9 Cervical s pondylosis without myelopathy 897706777 M47.812 Xerostomia 64851132 R68. 2 Anemia 809065593 D64.9 [id number] Ang Patterson MD [address] [address] 07/18/2023 15:27:03 07/18/2023 15:47:18 Chronic neck pain 8655384042 107 M54.2 Chronic low back pain 27 8415614 M54.50 Obesity 009720787 E66.9 [id number] Ang Patterson MD [address] [address] 1 08/22/2023 10:25:27 08/22/2023 10:43:48 Obesity 885070487 E66.9 Gastroesop hageal reflux disease without esophagitis 758005381 K21.9 Depressive disorder 3548 9007 F32.A [id number] Ang Patterson MD [address] [address] 1 10/24/2023 09:54:39 10/24/2023 10:45:37 Gastroesophageal reflux disease without esophagitis 380273276 K21.9 Obesity 054464096 E66.9 Vitamin D deficiency 347 18163 E55.9 Hyperlipidemia 74006131 E78.5 Pain of bi lateral hands 6202723987 5871528 M79.641 Screening colonoscopy 44 4920538 Z12.11 [id number] Ang Patterson MD [address] [address] 1 01/29/2024 13:56:02 01/29/2024 14:34:01 Intussusception of small intestine 713706960 K56.1 Chronic id iopathic constipation 68225806 K59.04 Obesity 100193783 E66.9 [id number] Ang Patterson MD [address] [address] 1 03/12/2024 09:48:48 03/12/2024 11:12:17 Vitamin D deficiency 23366658 E55.9 Hyperlipidemia 36139594 E78.5 Gastroesop hageal reflux disease without esophagitis 284688034 K21.9 Obesity 315823125 E66.9 Pain of bi lateral hands 1003906700 5977417 M79.641 Hospital i npatient stay within past 30 days 8397434433 106 Z76.89 Transition of care 15479 61838 105 Z75.8 Pulmonary embolism 50611 003 I26.99 Cervical s pondylosis without myelopathy 983367719 M47.812 Pulmonary embolism with pulmonary infarction 0792739282 102 I26.99 [id number] Ang Patterson MD [place] [address] 1 03/31/2024 15:36:12 03/31/2024 16:29:17 Transition of care 7857985951 105 Z75.8 Pulmonary embolism 93665 003 I26.99 Vitamin D deficiency 347 21694 E55.9 Hyperlipidemia 05265264 E78.5 Gastroesop hageal reflux disease without esophagitis 150669208 K21.9 Obesity 412174982 E66.9 Pain of bi lateral hands 1729617759 0459750 M79.641 Cervical s pondylosis without myelopathy 468486223 M47.812 Pulmonary embolism with pulmonary infarction 7218753886 102 I26.99 Dyspnea on exertion 6084 5006 R06.09 Screening for malignant neoplasm of colon 766997150 Z12.11 [id number] Ang Patterson MD [place] 480834-144 1 04/09/2024 11:38:36 04/09/2024 14:39:32 Transition of care 8074167855 105 Z75.8 Pulmonary embolism 01251 003 I26.99 Vitamin D deficiency 347 74671 E55.9 Hyperlipidemia 61587255 E78.5 Gastroesop hageal reflux disease without esophagitis 348214568 K21.9 Obesity 741569128 E66.9 Pain of bi lateral hands 4264155689 5957435 M79.641 Cervical s pondylosis without myelopathy 690843530 M47.812 Pulmonary embolism with pulmonary infarction 6141291678 102 I26.99 Dyspnea on exertion 6084 5006 R06.09 Tremor 95591238 R25.1 Hospital i npatient stay within past 30 days 6945674936 106 Z76.89 Health Concerns Section Related Observation LastModified by Organization Detai ls LastModified Time None Recorded Concern Status LastModified by Organization Details LastModified Time None Recorded Advance Directives Directive N: Payers Insurance Date Sequence Insurance Name Policy Number Policy Walsh Covered Member ID Walsh Member ID Guarantor Name 03/31/2024 1 [facility] [facility] [employer] [facility] - DOS PRIOR TO 2025 (MEDICAID REPLACEMENT - HMO) [id number] Anat Phelan [id number] Anat Phelan 12/26/2023 1 *SELF PAY* Ka rla Camdenenberger 03/30/2024 1 *SELF PAY* Ka rla Camdenenberger 03/31/2024 1 [employer] [employer] [facility] - DOS PRIOR TO 2025 (MEDICAID REPLACEMENT - HMO) [id number] Anat Hannahchristianne [id number] Anat Phelan 03/31/2024 2 [place] Anat Phelan [id number] Anat Hannahchristianne 03/31/2024 1 [place] Anat Phelan [id number] Anat Camdenchristianne 03/31/2024 2 [place] Anat Camdenchristianne [id number] Anat Hannahchristianne 03/31/2024 2 [place] Anat Camdenchristianne [id number] Anat Hannahchristianne 01/05/2025 1 [place] Anat Camdenchristianne [id number] Anat Hannahchristianne 03/31/2024 2 [place] CORRECTIONS Anat Phelan [id number] Anat Phelan Notes Date Note Type Note [...] PTSD and is f/u with Psych at [facility] for it. Pt is on meds by them and is doing overall well with it. Denies any mood swings/SI/HI. Pt was f/u with Endo at [facility] and is on chronic Prednisone from them for last couple years. Ang Patterson MD [address] [facility], [address], [place], [address], [employer] 10/24/2023 10:42:51 01/29/2024 text/html Anat Phelan is [...] speak with case managment. SHIRA Mckeon [address] [facility], [place], [address], [employer] 01/29/2024 14:33:48 03/12/2024 text/html Hospital fuv:Pt has some insurance issues going on. Pt was admitted to [facility] on 02/22/24 due to not feeling well. Pt was found to have Pneumonia, PE, pulmonary infarction, pulmonary edema. Pt has finished her antibiotics and she is on Eliquis and Critz. Pt is needing refill on them. Pt will be seeing Pulmo at [place] in few weeks. Pt has home O2 [...] PTSD and is f/u with Psych at [facility] for it. Pt is on meds by them and is doing overall well with it. Denies any mood swings/SI/HI. Pt was f/u with Endo at [facility] and is on chronic Prednisone from them for last couple years. Ang Patterson MD [address] [place] [address], [facility] [address], [place], [address], [facility] [employer] 03/12/2024 11:10:25 03/31/2024 text/html Hospital fuv: Pt was seen in ED again on 03/25/24 due to SOB and chest pain and got work up done and was found to have Pneumonia. So pt was d/c on Z-jeanmarie and hydrocodone from ED. Pt has finished Z-jeanmarie and is feeling much better now. No fever/chills/n/v/d/sp utum. Pt will be seeing Pulmo at [place] on 04/08/24. Pt has home O2 set up done already and she has with her. Pt was admitted to [facility] on 02/22/24 due to not feeling well. Pt was found to have Pneumonia, PE, pulmonary infarction, pulmonary edema. Pt has finished her antibiotics and she is on Eliquis and Critz. Pt is needing refill on them. Pt [...] PTSD and is f/u with Psych at [facility] for it. Pt is on meds by them and is doing overall well with it. Denies any mood swings/SI/HI. Pt was f/u with Endo at [facility] and is on chronic Prednisone from them for last couple years. Ang Patterson MD [address] [place] [address], [facility] [address], [place], [address], [place] [facility] [employer] 03/31/2024 16:13:31 04/09/2024 text/html Hospital fuv: Pt [...] body pain and she is asking for Critz. Pt is not taking her Gabapentin. Pt was seen couple weeks ago and was given Critz by me # [phone] on 03/21/24 and [...] week. Pt is f/u with Pulmo at [place] for her Pneumonia, PE and chronic hypoxia and is on meds by them. Pt has home O2 set up for her home. Pt was admitted to [facility] on 02/22/24 due to not feeling well. Pt was found to have Pneumonia, PE, pulmonary infarction, pulmonary edema. Pt has finished her antibiotics and she is on Eliquis and Critz. Pt is needing refill on them. Pt [...] PTSD and is f/u with Psych at [facility] for it. Pt is on meds by them and is doing overall well with it. Denies any mood swings/SI/HI. Pt was f/u with Endo at [facility] and is on chronic Prednisone from them for last couple years. Ang Patterson MD [address] [facility], [place] [address], [place], [address], [facility] [employer] [employer] 04/09/2024 14:38:39 OBGyn Episode No OBEpisode recorded.
--- OUTSIDE RECORDS SUMMARY | 2025-08-16 01:06 | XMS_ITS | Clinical Summary ---
Author Organization [facility] Address [address] [place] [address] Care Team Providers Care Raise Drill Operator Name Role Phone Kendrick Chacon MD [...] (COMPAZINE) 5 mg tablet 01/20/20 25 Active hydroxychloroquine (PLAQUENIL) 200 mg tabletIndications: Arthralgia, unspecified joint Take 1 tablet (200 mg total) by mouth 2 (two) times a day 180 tablet 1 06/02/20 25 Active morphine sulfate (morphine, bulk,) 100 % powder 0 07/22/20 25 Active naloxone (NARCAN) 4 mg/actuation spray,non-aerosol Administer 1 spray (4 mg total) into affected nostril(s) 04/27/20 Active Active Problems Problem Noted Date Diagnosed Date Adrenal insufficiency 04/19/2021 Prior with demise 01/30/2017 Encounter for anatomic survey 01/29/2017 Encounters Date Type Department Care Team Description 08/03/2025 Results Follow-Up [facility] Medicine Rheumatology [address] [place] [address] Advanced Medicine 5th [place] [address] [place] [address] Jessie Sherwood MD XR Hand Bilateral 3 or More Views of Each 07/28/2025 11:21 AM SENIOR ELECTRONICS DESIGN ENGINEER - 07/28/2025 11:59 PM SENIOR ELECTRONICS DESIGN ENGINEER Hospital Encounter [facility] [address] [place] [address] Jessie Sherwood MD Rheumatoid arthritis 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 factor (HCC) Discharge Disposition: Discharge to home or self care 07/28/2025 10:20 AM SENIOR ELECTRONICS DESIGN ENGINEER [facility] [address] [place] [address] Advanced Medicine 5[address] [place] [address] [place] [address] Jessie Sherwood MD Rheumatoid arthritis 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 factor (HCC) (Primary Dx); Encounter for long-term (current) use of high-risk medication; Chronic midline low back pain, unspecified whether sciatica present from Last 3 Months Surgical History Surgery [...] 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 Not on file Not on file Last Filed Vital Signs Vital Sign Reading Time Taken Comments Blood Pressure 132/81 07/28/2025 10:24 AM SENIOR ELECTRONICS DESIGN ENGINEER Pulse 73 07/28/2025 10:24 AM SENIOR ELECTRONICS DESIGN ENGINEER Temperature 36.7 C (98.1 F) 07/28/2025 10:24 AM SENIOR ELECTRONICS DESIGN ENGINEER Respiratory Rate 18 05/10/2021 3:55 PM CDT Oxygen Saturation 97% 05/10/2021 3:55 PM CDT Inhaled Oxygen Concentration - - Weight 83 kg (183 lb) 07/28/2025 10:24 AM SENIOR ELECTRONICS DESIGN ENGINEER Height 165.1 cm (5' 5) 07/28/2025 10:24 AM SENIOR ELECTRONICS DESIGN ENGINEER Body Mass Index 30.45 07/28/2025 10:24 AM SENIOR ELECTRONICS DESIGN ENGINEER Plan of Treatment Health Maintenance Due Date Last Done Comments Breast Cancer Screening-Mammogram 1976 Cervical Cancer Screening 1976 Colon Cancer Screening-Colonoscopy 1976 Depression Screening 1976 Regular Well Visit/Exam 18-64 1994 Pneumococcal vaccine <65 (1 of 2 - PCV) 1995 Zoster Vaccine (1 of 2) 1995 Covid-19 Vaccine (2 - Jansse n risk series) 03/12/2021 02/12/2021 DTaP/Tdap/Td Vaccine (3 - Td or Tdap) 02/22/2027 02/22/2017, 07/18/2015, 11/12/2005 Hepatitis B Screening Completed 05/27/2006 , 12/20/2005, 11/12/2005 Hepatitis C Screening Completed 07/15/2024 Influenza Vaccine Completed 05/18/2025 Procedures Procedure Name Priority Date/Time Associated Diagnosis Comments XR HAND BILATERAL 3 OR MORE VIEWS OF EACH Schedule Routine, Read Routine (OP Routine) 07/28/2025 11:33 AM SENIOR ELECTRONICS DESIGN ENGINEER Rheumatoid arthritis 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 factor (HCC) XR WRIST BILATERAL 3 OR MORE VIEWS Schedule Routine, Read Routine (OP Routine) 07/28/2025 11:33 AM SENIOR ELECTRONICS DESIGN ENGINEER Rheumatoid arthritis 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 factor (HCC) HEPATITIS C ANTIBODY Routine 07/15/2024 12:49 PM SENIOR ELECTRONICS DESIGN ENGINEER Effusion of joint, unspecified location Arthralgia, unspecified joint from Last 3 Months or Most Recently Relevant to Health Maintenance Results * XR Wrist Bilateral 3 or More Views (07/28/2025 11:33 AM SENIOR ELECTRONICS DESIGN ENGINEER) Anatomical Region Laterality Modality Upper Extremities, Wrist Compute d Radiography 07/28/2025 12:2 1 PM SENIOR ELECTRONICS DESIGN ENGINEER Impressions 07/28/2025 12:21 PM SENIOR ELECTRONICS DESIGN ENGINEER 1. 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 Electronically signed by: Alvaro Zimmer M.D. Narrative 07/28/2025 12:21 PM SENIOR ELECTRONICS DESIGN ENGINEER EXAMINATION: XR WRIST BILATERAL 3 OR MORE VIEWS, XR HAND BILATERAL 3 OR MORE VIEWS OF EACH HISTORY: Joint pain FINDINGS: 3 view examinations of both hands and both wrists are compared with a study dated 07/20/2024. There is mild osteoarthritis at the basal joints of both thumbs. There is mild ulna plus variance bilaterally. There is no change in nonspecific intraosseous ganglion cysts or erosions of the right second metacarpal head, left thumb proximal phalanx head, and right lunate. There is no new erosion, periosteal reaction, or subluxation. There is no knee joint space narrowing. There is no fracture. Procedure Note Alvaro Zimmer MD - 07/28/2025 EXAMINATION: XR WRIST BILATERAL 3 OR MORE VIEWS, XR HAND BILATERAL 3 OR MORE VIEWS OF EACH HISTORY: Joint pain FINDINGS: 3 view examinations of both hands and both wrists are compared with a study dated 07/20/2024. There is mild osteoarthritis at the basal joints of both thumbs. There is mild ulna plus variance bilaterally. There is no change in nonspecific intraosseous ganglion cysts or erosions of the right second metacarpal head, left thumb proximal phalanx head, and right lunate. There is no new erosion, periosteal reaction, or subluxation. There is no knee joint space narrowing. There is no fracture. IMPRESSION: 1. 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 Electronically signed by: Alvaro Zimmer M.D. Jessie Sherwood MD IMG XR PROCEDURES Final Re sult * XR Hand Bilateral 3 or More Views of Each (07/28/2025 11:33 AM SENIOR ELECTRONICS DESIGN ENGINEER) Anatomical Region Laterality Modality Upper Extremities, Hand Computed Radiography 07/28/2025 12:2 1 PM SENIOR ELECTRONICS DESIGN ENGINEER Impressions 07/28/2025 12:21 PM SENIOR ELECTRONICS DESIGN ENGINEER 1. 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 Electronically signed by: Alvaro Zimmer M.D. Narrative 07/28/2025 12:21 PM SENIOR ELECTRONICS DESIGN ENGINEER EXAMINATION: XR WRIST BILATERAL 3 OR MORE VIEWS, XR HAND BILATERAL 3 OR MORE VIEWS OF EACH HISTORY: Joint pain FINDINGS: 3 view examinations of both hands and both wrists are compared with a study dated 07/20/2024. There is mild osteoarthritis at the basal joints of both thumbs. There is mild ulna plus variance bilaterally. There is no change in nonspecific intraosseous ganglion cysts or erosions of the right second metacarpal head, left thumb proximal phalanx head, and right lunate. There is no new erosion, periosteal reaction, or subluxation. There is no knee joint space narrowing. There is no fracture. Procedure Note Alvaro Zimmer MD - 07/28/2025 EXAMINATION: XR WRIST BILATERAL 3 OR MORE VIEWS, XR HAND BILATERAL 3 OR MORE VIEWS OF EACH HISTORY: Joint pain FINDINGS: 3 view examinations of both hands and both wrists are compared with a study dated 07/20/2024. There is mild osteoarthritis at the basal joints of both thumbs. There is mild ulna plus variance bilaterally. There is no change in nonspecific intraosseous ganglion cysts or erosions of the right second metacarpal head, left thumb proximal phalanx head, and right lunate. There is no new erosion, periosteal reaction, or subluxation. There is no knee joint space narrowing. There is no fracture. IMPRESSION: 1. 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 Electronically signed by: Alvaro Zimmer M.D. Jessie Sherwood MD IMG XR PROCEDURES Final Re sult * Hepatitis C antibody Blood (07/15/2024 12:49 PM SENIOR ELECTRONICS DESIGN ENGINEER) Hep C Ab Nonreactive Nonreactive Comment:Antibodies to HCV no t detected. Does NOT exclude the possibility of recent exposure to HCV. Current interpretive data was last revised on 22 Blood 07/15/2024 12:4 9 PM SENIOR ELECTRONICS DESIGN ENGINEER 07/15/2024 1:25 PM SENIOR ELECTRONICS DESIGN ENGINEER Jessie Sherwood MD LAB MICROBIOLOGY - GENERAL ORDERABLES Final Result [facility] Department [place] [address] from Last 3 Months or Most Recently Relevant to Health Maintenance Insurance [facility] Care Teams Raise Drill Operator Relationship Specialty Start Date End Date Keven Gonzalez DO [address] [place] [address] PCP - General Family Medicine 05/29/24 Kendrick Chacon MD Emergency Medicine 04/27/20 Edy Yadav MD [address] [facility], [place] [address] Consulting Physician Pain Management 04/28/21
--- OUTSIDE RECORDS SUMMARY | 2025-08-16 01:06 | XMS_ITS | Encounter Summary ---
Author Organization [facility] Address [address] [place] [address] Phone Care Team Providers Care Gym Supervisor Name Role Phone Kendrick Chacon MD Unavailable Edy Yadav MD Unavailable Keven Gonzalez DO Primary Care Provider [phone] Encounter Details Date Type Department Care Team (Late st Contact Info) Description 08/03/2025 Results Follow-Up 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
--- NOTE | 2025-08-16 08:51 | WPDHPUPDATE1 ---
History and Physical Update Update Date/Time: 08/16/25 08:51 History and Physical has been reviewed, including an updated exam of the patient. There are NO changes in the patient's condition. Risks, benefits, and alternatives have been discussed and questions answered. Patient agrees to proceed with procedure.
--- NOTE | 2025-08-16 08:52 | W.PM.PROC2 ---
Procedure Note - Detailed Date of Procedure 08/16/25 Pre-op Diagnosis chronic pain syndrome Post-op Diagnosis Same Procedure Performed Permanent Implantation of Medtronic Synchromed III 20 mL Intrathecal Pain Pump for Targeted Drug Delivery. Permanent Implantation of Percutaneous, Tunneled Medtronic Ascenda Intrathecal Catheter under Fluoroscopic Guidance. Initial Pump Volume Refill with Interrogation and Reprogramming of Indwelling ITP by Physician at Time of Implantation. Surgeon Bin Mcdonald MD Anesthesia Other ([GETA with Local infiltration in the [Left Right] lateral decubitus position.]) Description of Procedure INFORMED CONSENT: Risks, benefits and alternatives to the procedure were discussed in detail with the patient who expressed explicit understanding and consent to proceed. Patient was informed verbally and in written form regarding the risks associated with the procedure including the low risk of serious infection, bleeding/bruising, allergic reaction, nerve or organ injury, procedural site pain or discomfort, worsening pain and/or mobility, equipment malfunction or medication extravasation leading to withdrawal or overdose, post-dural puncture headache, seizure, coma, and failure to treat and/or disfigurement. The patient expressed explicit understanding and consent to proceed. All materials required for the procedure were available prior to procedure start. Site and side were marked prior to procedure and verbally confirmed in the presence of the patient. Pump medications were immediately available and labeled, including patient identifiers, appropriate volume, drugs and concentrations, which were confirmed with both the patient and the patient's chart. PROCEDURE IN DETAIL: The patient was brought to the operative suite, monitors attached and GETA was initiated and maintained without complication. Patient was placed in the left lateral decubitus position and all pressure points padded. Limbs placed in neutral position. Site for pump pocket was identified and marked with sterile skin marker. Patient was prepared and draped in the typical manner and aseptic technique used throughout. Lumbar spine was identified in the AP view. Needle entry site was identified at L2-3 and 4 cm incision was made at midline with #11 scalpel after local anesthesia was established by infiltration with a 1:1 admixture of 2.0% PF lidocaine with epinepherine and 0.5% PF Bupivacaine with epinepherine via a 1-1/2 inch 27-gauge needle. Incision was extended by blunt dissection and electrocautery to fascia. Hemostasis obtained with electrocautery and confirmed. 16-gauge 6 inch Tuohy introducer needle was advanced under intermittent fluoroscopy until loss of resistance to air using plastic JOSE CARLOS syringe was obtained. Needle was then advanced slowly 3-5 mm until tactile puncture of the dura and free flow of clear CSF was observed. Medtronic Ascenda catheter was advanced under live fluoroscopy until radio-opaque catheter tip reached T8/9 within the posterior intrathecal space. Free flow CSF was once again observed from distal end of catheter. 2.0 silk suture was used to create purse-string retention stitch around the catheter entry site at the level of the fascia. An additional two x 2.0 silk sutures were placed on either side of the needle for future anchoring of the catheter to fascia with the introducer needle still in place. Needle was then carefully withdrawn under live fluoroscopy to ensure lack of catheter migration. Purse string suture was tightened and secured carefully to avoid catheter occlusion. Free flow CSF was observed once again. Medtronic winged friction anchor was advanced over the catheter and deployed with proximal end buried in fascia. [place] was secured with previously placed 2 x 2.0 silk sutures. Free flow of CSF was observed from distal tip of catheter. Attention was then turned to creation of the pump pocket in the right lower abdominal quadrant. An 8 cm incision was made using #11 scalpel and extended via a combination of sharp and blunt dissection as well as electrocautery until approximately 2 cm deep. Pocket was created via blunt dissection and electrocautery and sized to fit desired pump size. Hemostasis obtained via electrocautery and confirmed. Using the salad counter attendant-supplied tunneling device, catheter was tunneled from the lower edge of the midline thoracolumbar incision to the superolateral portion of the pump pocket without difficulty, leaving a stress relieving loop at the catheter insertion site. Free flow CSF was observed prior to securely connecting the distal tip of the catheter, first to the suture-less connector and then to the ejection port on the pump. Contiguity of the entire system with the intrathecal space was confirmed through the catheter access port using a 24 gauge non-coring beveled needle with subsequent positive aspiration of clear CSF. No evidence of catheter puncture or leak. Connection was solid when tested. No evidence of catheter migration under fluoroscopy. 4 x 2.0 ethibond sutures were placed within the abdominal fascia at each corner of the pump pocket. Pump was aspirated, filled with intended infusate and programmed on the back table prior to implantation. The pump was then placed within the pocket with refill port facing outward and catheter access port facing toward the navel. Excess catheter was coiled behind the pump. Pump was secured to fascia with previously placed ethibond sutures. Each incision site was copiously irrigated with IrriCept 0.5% chlorhexidine gluconate irrigation solution. 500mg of powdered vancomycin was instilled, divided between both incision sites, immediately prior to closure. Hemostasis was observed prior to closure. Sponge and needle counts were correct. Each incision was then closed in a layered fashion using interrupted, antimicrobial impregnated 2.0 vicryl for both the deep and dermal layers and a continuous antibiotic-impregnated 4.0 monocryl subcuticular suture for the superficial layers. Wound glue was used to seal the epidermis. Each wound was bandaged with telfa and tegaderm dressing. Patient was returned to the supine position. GETA was reversed without difficulty. No immediate evidence of complication. Patient was discharged to recovery in stable condition. Images were saved and documented in the patient chart. The patient tolerated the procedure well. Patient instructed to remain in the presence of a responsible adult to monitor for at least 48 hours after subsequent discharge. Patient is to have previously prescribed [place] naloxone on their person continuously for 72 hours. Patient and caregiver(s) instructed on appropriate use of naloxone. The patient was instructedregarding the signs and symtoms of infection/meningitis/epidral hematoma and instructed to avoid excessive activity for the next 4-6 weeks. Instructed to remain recumbent and treat mild to moderate headaches with OTC analgesics, hydration and occasional caffeinated beverages as tolerated. Top bandage can be removed and replaced with clean light gauze and paper tape after 48 hours, changed daily as needed. Showers only (no soaking, bathing or swimming) for 2 weeks after top bandage removed. They were instructed not to drive or operate heavy machinery for 2 weeks. They are to monitor for severe headaches, fevers, chills, night sweats, erythema/swelling at the site or any other signs of infection, bleeding/bruising, bowel or bladder changes as well as new pain, weakness or numbness in the upper or lower extremity. Should they notice these changes, they are instructed to call our office immediately or report directly to the nearest Emergency Department if no answer or if after posted office hours. COMPLICATIONS: None. EBL: 10 mL. DRAINS: None. FINDINGS: None. SPECIMENS: None. COMMENTS: None. Complications No immediate complications Condition Stable Disposition PACU [facility] Billing Surgery - Charge Forward: Surgery Billing
--- NOTE | 2025-08-16 10:59 | WPDANESEPPF ---
Anes - Initial Pre Proc Eval Procedure: Operation Date: 08/16/25 12:00 Proposed Procedures p Permanent Placement of Medtronic SynchroMed Implantable Pain Pump and Ascenda Intrathecal Catheter Under Fluoroscopic Guidance for Continuous Targeted Drug Delivery - Bin Mcdonald MD Date/Time: 08/16/25 10:59 Surgeon: Bin Mcdonald MD Pre Op Diagnosis: chronic pain syndrome Patient Data Age: 50 Gender: F Height: 1.65 m Weight: 81.8 kg Allergies Allergy/AdvReac Type Severity Reaction Status Date / Time naproxen AdvReac Gastrointestinal Verified 08/13/25 08:31 Upset Home Medications ?Medication ?Instructions ?Recorded ?Confirmed ?Type citalopram 40 mg tablet 40 mg PO DAILY 09/06/22 08/13/25 History albuterol sulfate 90 mcg/actuation 2 puff inhalation Q4-6H PRN 10/23/22 08/13/25 Rx aerosol inhaler shortness of breath or wheezing 30 days #8.5 grams atorvastatin 10 mg tablet 10 mg PO QPM 10/01/24 08/13/25 History bupropion HCl 300 mg 24 hr tablet, 300 mg PO DAILY 10/01/24 08/13/25 History extended release hydroxychloroquine 200 mg tablet 200 mg PO Q12H 10/01/24 08/13/25 History ferrous sulfate 325 mg (65 mg 325 mg PO DAILY #90 tabs 10/27/24 08/13/25 Rx iron) tablet (FeroSul) ergocalciferol (vitamin D2) 1,250 50,000 unit PO WEEKLY 11/10/24 08/13/25 History mcg (50,000 unit) capsule linaclotide 72 mcg capsule 72 mcg PO DAILY 02/09/25 08/13/25 History (Linzess) budesonide-formoterol HFA 160 See Rx Instructions .Route 03/17/25 08/13/25 Rx mcg-4.5 mcg/actuation aerosol .COMPLEX #10.2 grams inhaler (Symbicort) naloxone 4 mg/actuation nasal 4 mg intranasal Q2M PRN opioid 04/27/25 08/13/25 Rx spray (Narcan) overdose #2 ea triamcinolone acetonide 0.1 % 1 applic topical DAILY #80 grams 05/18/25 08/13/25 Rx topical ointment famotidine 40 mg tablet See Rx Instructions .Route 05/20/25 08/13/25 Rx .COMPLEX #90 tabs carbamazepine 200 mg tablet See Rx Instructions .Route 06/29/25 08/13/25 Rx .COMPLEX #60 tabs pantoprazole 40 mg tablet,delayed 40 mg PO BID #60 tabs 06/30/25 08/13/25 Rx release furosemide 20 mg tablet See Rx Instructions .Route 07/15/25 08/13/25 Rx .COMPLEX #90 tabs prochlorperazine maleate 5 mg See Rx Instructions .Route 08/07/25 08/13/25 Rx tablet .COMPLEX #20 tabs methocarbamol 500 mg tablet See Rx Instructions .Route 08/09/25 08/13/25 Rx .COMPLEX #90 tabs Patient hx anesthesia problems: none Family hx anesthesia problems: none Results Review: All pre-operative results and documents have been reviewed as part of the pre-operative evaluation. PENDING SALE TO [facility] Past Medical History Medical History Irritable bowel syndrome with constipation Choking Rheumatoid arthritis Chronically dry eyes Former cigarette smoker History of rhabdomyolysis December 2023 Spondylosis, lumbosacral Degenerative disc disease, lumbar L4-S1 Degenerative disc disease, cervical C4-C7 Chronic back pain Neck and low back Irritable bowel syndrome Gastroesophageal reflux disease Chronic obstructive pulmonary disease Labral tear of right hip joint Asthma Depression Anxiety Surgical History Surgical History History of colonoscopy with polypectomy (~1999) History of right cataract surgery Status post anal fissurectomy History of section (2016) X1 History of tonsillectomy History of cholecystectomy Family History Family History Father Diabetes mellitus Hypertension Mother Hypertension Osteoarthritis Rheumatoid arthritis Grandparent Breast cancer Sibling Lupus Social History Social History Social History: She is . She lives at home with her 7-year-old daughter she has 2 grown sons other well. She smoked 1 pack of cigarettes per day for twenty-two years but quit in 2020. She denies any significant alcohol use. She denies illicit substance use. She works at an [employer]. Surrogate medical decision maker: Flakito Phelan, lon. Code status: Full code. Smoking packs per day: 1 Smoking cigarettes per day: 20.0 Years smoked: 30 Smoking pack-years: 30.00 Smoking status: Former smoker Tobacco type: cigarettes Second hand tobacco smoke exposure: Yes Smoking end date: 09/02/20 Alcohol intake: never Substance use: never Substance use type: does not use Other substance usage details: denies IVDU Lack of Transportation: No Lack of Food: Sometimes True Current Housing: I Have Housing Concerned About Future Housing: No Difficulty Paying Gas/Electric Bills: YES Difficulty Paying for Meds: No Currently Unemployed: No Education: Trade/Vocational Certificate Difficulty w/ Childcare or Family Care: No Living arrangements: alone Additional living arrangements comments: sons and daughter Spiritual care concerns: No Anes - Eval Final PreProcedure Day of Procedure 08/16/25 10:59 Patient weight: obese Heart: regular rate and rhythm Lungs: clear to auscultation Airway: Mallampati scale class II Neurological: alert and oriented Last oral intake: >/= 8 hours ASA classification: III Emergent: no Anesthetic plan: proceed Anesthesia type and monitoring: general GIVS and standard monitoring Results Review: All pre-operative results and documents have been reviewed as part of the pre-operative evaluation. Informed Consent: The patient's anesthetic plan and its attendant risks and benefits were discussed with the patient/family/POA. Questions were solicited and answers provided to the satisfaction of the patient/family/POA.
[2025-08-16] MEDS: LACTATED RINGERS 1,000 ML 30 ML IV CONT (11:01)
[2025-08-16] MEDS: ceFAZolin 2 GM in SODIUM CHLORIDE 0.9% IV 50 ML 100 ML IVPB (11:42)
[2025-08-16] MEDS: LIDOCAINE 2% PF LOCAL INJ 5 ML VIAL 20 ML INFILTRATE (12:10)
[2025-08-16] MEDS: IRRISEPT 450 ML IRRIGATION BOTTLE IRRIGATION (13:00)
[2025-08-16] MEDS: fentaNYL CITRATE INJ (*CRX) 100 MCG/2 ML VIAL 25 MCG IV PUSH ×4 (14:23→14:46)
[2025-08-16] MEDS: oxyCODONE HCL (*CRX) 5 MG TAB IR PO (15:39)
[2025-08-16] MEDS: ARTIFICIAL TEARS OPHTH SOLN 15 ML BOTTLE 1 DROP EACH EYE (16:13)
[2025-08-16] MEDS: PROPARACAINE HCL 0.5% 15 ML OPHTH SOLN 1 DROP EACH EYE (16:13)
[2025-08-16] MEDS: DICLOFENAC SODIUM 0.1% OPHTH SOLN 2.5 ML BOTTLE 1 DROP EACH EYE (16:13)
== END 2025-08-16 16:28 | disposition home or self-care (01) ==
PROVIDERS: PCP Family Medicine; Visit Provider Anesthesiology Pain Medicine
PROC: (CPT 62362; principal; 2025-08-16 12:00)
DX: G89.4 Chronic pain syndrome (principal); M47.812 Spondylosis without myelopathy or radiculopathy, cervical region; M47.817 Spondylosis without myelopathy or radiculopathy, lumbosacral region; M48.02 Spinal stenosis, cervical region; M48.062 Spinal stenosis, lumbar region with neurogenic claudication; M46.1 Sacroiliitis, not elsewhere classified; K58.1 Irritable bowel syndrome with constipation; K21.9 Gastro-esophageal reflux disease without esophagitis; J44.9 Chronic obstructive pulmonary disease, unspecified; F32.A Depression, unspecified; F41.9 Anxiety disorder, unspecified; M06.9 Rheumatoid arthritis, unspecified; E66.9 Obesity, unspecified; Z68.28 Body mass index [BMI] 28.0-28.9, adult; Z79.51 Long term (current) use of inhaled steroids; Z98.890 Other specified postprocedural states; Z90.49 Acquired absence of other specified parts of digestive tract; Z87.891 Personal history of nicotine dependence; Z80.3 Family history of malignant neoplasm of breast
CPT/HCPCS: 62362; 62350; 99199; J0690; A9270; C1755; C1772; J0330; J1100; J2003; J2250; J2405; J2704; J3010; J3373; J7120

== ENCOUNTER 2025-08-19 09:30 | Outpatient (CLI) | payer OTHER, SELFPAY ==
--- NOTE | ~2025-08-19 | MM_ITS ---
EXAMINATION: MM screening andre BI w angel HISTORY: Screening TECHNIQUE: Craniocaudal and mediolateral oblique 3-D tomosynthesis images were obtained and synthetic 2-D images were generated. CAD analysis was submitted and interpreted. COMPARISON: Comparison to multiple prior studies sequentially, with oldest reviewed study dated , 10/15/2018 BREAST PARENCHYMAL COMPOSITION: Not Dense: There are scattered areas of fibroglandular density. FINDINGS: There is no evidence of suspicious mass, calcification, or architectural distortion to suggest malignancy in either breast. IMPRESSION: 1. No mammographic evidence of malignancy. 2. Recommend routine screening mammography in one year. BI-RADS Category 1: Negative Reviewed, dictated and finalized at location A. ENTOLOGIST
--- OUTSIDE RECORDS SUMMARY | 2025-08-19 10:24 | XMS_ITS | Data Portability ---
Author Organization [facility] [place], Main Office Address [address] [place] [address] Assessment Encounter Date Assessment Date Assessment LastModified [...] per schedule. Cont f/u with Psych at [facility] as per schedule. Cont f/u with Gyne at [facility] as per schedule. HM: WWE - 06/23, normal as per pt. Cont f/u with Gyne as per schedule. Mammo - 2 yrs ago. Ordered. Colonoscopy - Referred to GI. Flu - Pt declined. Tdap, Pneumo, Shingrix - At pharmacy/HD. F/u in 2 months. Lipids in 01/23. Annual labs in 06/25. [email or web address] Not available 10/24/2023 10:42:23 03/12/2024 03/12/2024 48 [...] Pt will be calling her Pulmo at [facility] and see if she can be seen sooner. Pt declined for referral to Cardio. All meds verified with pt. [place] 5/325 # 40 given today until she can see Phytopathology Teacher. Meds as directed. Good liquid and fiber intake explained. Diet and exercise explained in detail. BP diary education given and call us if any concerns. F/u with PT as per schedule. F/u with GI as per schedule. Cont f/u with Pulmo at [facility] as per schedule. Cont f/u with Psych at [facility] as per schedule. Cont f/u with Gyne at [facility] as per schedule. HM: WWE - 06/23, normal as per pt. Cont f/u with Gyne as per schedule. Mammo - 2 yrs ago. Ordered. Colonoscopy - Referred to GI. Flu - Pt declined. Tdap, Pneumo, Shingrix - At pharmacy/HD. F/u in 1 month. Lipids before next visit. Annual labs in 06/25. [email or web address] Not available 03/12/2024 11:09:21 03/31/2024 03/31/2024 48 [...] be seeing her Pulmo on 04/08/24 at [facility]. Will refer pt to Cardio, Pain clinic. [...] per schedule. Cont f/u with Pulmo at [facility] as per schedule. Cont f/u with Psych at [facility] as per schedule. Cont f/u with Gyne at [facility] as per schedule. HM: WWE - 06/23, normal as per pt. Cont f/u with Gyne as per schedule. Mammo - 2 yrs ago. Ordered. Colonoscopy - Referred to GI. Cologuard ordered. Flu - Pt declined. Tdap, Pneumo, Shingrix - At pharmacy/HD. F/u in 1-2 months. Annual labs in 06/25. [email or web address] Not available 03/31/2024 16:12:56 04/09/2024 04/09/2024 48 [...] per schedule. Cont f/u with Pulmo at [facility] as per schedule. Cont f/u with Psych at [facility] as per schedule. Cont f/u with Gyne at [facility] as per schedule. Educated pt about alarming [...] F/u as directed. Annual labs in 06/25. [email or web address] Not available 04/09/2024 14:37:51 Plan of Treatment Reminders Order Date Submit Date Provider Last Modified By Organization Details Last Modified Time Details Appointments None recorded. Lab noninvasive colorectal cancer DNA + occult blood screening, QL, stool 2023 024 [facility], [address], [address], [place], [address], 17:19:08 lipid panel, serum [address] (Lab), [address] [place], [address], 4 08:11:23 lipid panel, serum [address] (Lab), [address] [place], [address], 08:30:44 Referral neurologist referral - Please call patient to schedule an appointment . Thank you. 2023 024 [email or web address] [facility] - Neurology, [address] [facility], [place], [address], 08:52:35 cardiologis t referral - Please call patient to schedule an appointment . Thank you. 2023 024 [email or web address] [facility] Vascular Referral Fax Line, [address] [facility] [facility] [address], [place], [address], 07:47:52 pain management referral - Please call patient to schedule an appointment . Thank you. 2023 024 [email or web address] [facility] Pain Management, [address] [facility] [address], [place], [address], 4 07:46:41 hematologis t referral - Multiple PEs, ex-smoker. Please call patient to schedule an appointment . Thank you. 2023 024 [email or web address] Matthew Whitman Nae TUCKER, [address] [facility], [address], [place], [address], 08:54:02 gastroenter ologist referral - Patient has new onset intussuscep tion , found on CT 01/21, not present on CT 12/12. Diverticulo sis. Please call patient to schedule an appointment . Thank you. 2023 024 [email or web address] [facility] - Gastroenterol ogy, [address], [address], [place], [address], 4 08:51:43 gastroenter ologist referral - Please call patient to schedule an appointment . 2023 024 [email or web address] Brenden Carlson MD, [address] [facility], [address], [place], [address], 4 08:35:15 Procedures None recorded. Surgeries None recorded. Imaging XR, hand, 3 or more view 2023 024 [email or web address] Not available 09:04:28 Medication Orders ipratropium 0.5 mg-albutero l 3 mg (2.5 mg base)/3 mL nebulizatio n soln 2023 024 [facility]49902, [address] [facility], [place], [place], [id number], 4 12:05:29 albuterol sulfate HFA 90 mcg/actuati on aerosol inhaler 2023 [facility] #67229, [address], [place], [place], [id number], 4 12:05:29 furosemide 20 mg tablet 2023 [facility] #91068, [address], [place], [place], [id number], 4 12:05:30 omeprazole 40 mg capsule,del ayed release 2023 [facility] #96894, [address], [place], [place], [id number], 4 12:05:30 famotidine 40 mg tablet 2023 [facility] #05068, [address], [place], [place], [id number], 4 12:05:29 atorvastati n 10 mg tablet 2023 [facility] #79248, [address], [place], [place], [id number], 4 12:05:33 ipratropium 0.5 mg-albutero l 3 mg (2.5 mg base)/3 mL nebulizatio n soln 2023 024 [facility] #98156, [address], [place], [place], [id number], 4 16:00:21 Eliquis 5 mg tablet 2023 024 [facility] #96327, [address], [place], [place], [id number], 4 16:00:24 albuterol sulfate HFA 90 mcg/actuati on aerosol inhaler 2023 024 [facility] #32542, [address] [facility], [place], [place], [id number], 4 16:00:26 furosemide 20 mg tablet 2023 024 [facility] #65565, [address] [facility], [place], [place], [id number], 4 16:00:26 gabapentin 600 mg tablet 2023 024 [facility] #14172, [address] [facility], [place], [place], [id number], 4 16:00:23 baclofen 20 mg tablet 2023 024 [facility] #75132, [address] [facility], [place], [place], [id number], 4 16:00:31 atorvastati n 10 mg tablet 2023 024 [facility] #07555, [address] [facility], [place], [place], [id number], 4 16:00:27 ergocalcife rol (vitamin D2) 1,250 mcg (50,000 unit) capsule 2023 024 [facility] #18673, [address] [facility], [place], [place], [id number], 4 16:00:29 omeprazole 40 mg capsule,del ayed release 2023 024 [facility] #35817, [address] [facility], [place], [place], [id number], 4 16:00:27 famotidine 40 mg tablet 2023 024 [facility] #12445, [address] [facility], [place], [place], [id number], 4 16:00:21 ipratropium 0.5 mg-albutero l 3 mg (2.5 mg base)/3 mL nebulizatio n soln 2023 [facility] #07640, [address] [facility], [place], [place], [id number], 4 10:22:20 Eliquis 5 mg tablet 2023 [facility] #72208, [address] [facility], [place], [place], [id number], 4 10:22:22 hydrocodone 5 mg-acetamin ophen 325 mg tablet 2023 [facility] #77487, [address] [facility], [place], [place], [id number], 4 10:22:59 albuterol sulfate HFA 90 mcg/actuati on aerosol inhaler 2023 024 [facility] #53611, [address] [facility], [place], [place], [id number], 4 10:23:13 furosemide 20 mg tablet 2023 024 [facility] #62951, [address] [facility], [place], [place], [id number], 4 10:46:07 atorvastati n 10 mg tablet 2023 024 [facility] #79917, [address] [facility], [place], [place], [id number], 4 10:22:22 gabapentin 300 mg capsule 2023 024 [facility] #58168, [address] [facility], [place], [place], [id number], 4 16:01:49 ergocalcife rol (vitamin D2) 1,250 mcg (50,000 unit) capsule 2023 024 [facility] #42242, [address] [facility], [place], [place], [id number], 4 10:22:22 omeprazole 40 mg capsule,del ayed release 2023 024 [facility] #36334, [address] [facility], [place], [place], [address], 4 10:22:24 famotidine 40 mg tablet 2023 024 [facility] #63230, [address] [facility], [place], [place], [address], 4 10:22:21 docusate sodium 100 mg capsule 2023 024 [facility] #03218, [address] [facility], [place], [place], [address], 4 14:26:23 phentermine 37.5 mg tablet 2023 024 [facility] #64302, [address] [facility], [place], [place], [id number], 4 10:13:02 diclofenac sodium 75 mg tablet,tarsha yed release 2023 024 [facility] #37346, [address] [facility], [place], [place], [address], 4 10:36:23 atorvastati n 10 mg tablet 2023 024 [facility] #58481, [address] [facility], [place], [place], [address], 4 10:32:43 phentermine 37.5 mg tablet 2023 024 [email or web address] [facility] #30539, [address] [facility], [place], [place], [id number], 4 10:13:02 ergocalcife rol (vitamin D2) 1,250 mcg (50,000 unit) capsule 2023 024 [facility] #72912, [address] [facility], [place], [place], [address], 4 10:32:39 omeprazole 40 mg capsule,del ayed release 2023 024 [facility] #95338, [address] [facility], [place], [place], [address], 4 10:32:40 famotidine 40 mg tablet 2023 024 [facility] #89826, [address] [facility], [place], [place], [address], 4 10:32:42 Patient TargetsNo targets recorded. Patient Instructions Encounter Date Encounter Id Patient Instructions Last Modified By Organization Details Last Modified Time 10/24/2023 [id number] learning about obesity [email or web address] Not available 10/24/2023 10:32:32 03/12/2024 [id number] learning about obesity [email or web address] Not available 03/12/2024 10:22:13 Thank you for [...] Medical Equipment needed: Billing Guidelines CPT code 38911- Transitional Care Management services with moderate medical decision complexity (jnop-rb-xkwp visit within 14 days of discharge). CPT code 79571- Transitional Care Management services with high medical decision complexity (zpuu-ra-zxfi visit within 7 days of discharge). Not available 03/12/2024 09:52:22 03/31/2024 [id number] learning about obesity [email or web address] Not available 03/31/2024 16:00:11 Thank you for [...] to discuss. Not available 03/31/2024 15:42:48 04/09/2024 [id number] Thank you for your visit to our [...] Not available 04/09/2024 11:46:58 Reason for Referral Tapper Hand Referral for Screening colonoscopy Please call patient to schedule an appointment. Referring Physician: Ang Patterson [facility], Encounter Date: 10/24/2023 Tapper Hand Referral for Intussusception of small intestine Patient has new onset intussusception , found on CT 01/21, not present on CT 12/12. Diverticulosis. Please call patient to schedule an appointment. Thank you. Referring Physician: Janneth Rogers [facility], Encounter Date: 01/29/2024 Multiple PEs, ex-smoker. Ple ase call patient to schedule an appointment. Thank you. Referring Physician: Ang Patterson [facility], Encounter Date: 03/12/2024 Pain Management Referral for Cervical spondylosis without myelopathy Please call patient to schedule an appointment. Thank you. Referring Physician: Ang Patterson [facility], Encounter Date: 03/31/2024 Cafeteria Attendant Referral for Dy spnea on exertion Please call patient to schedule an appointment. Thank you. Referring Physician: Ang Patterson [facility], Encounter Date: 03/31/2024 Neurologist Referral for Kory mor B/l UE tremors for last 1-2 weeks. Please call patient to schedule an appointment. Thank you. Referring Physician: Ang Patterson [facility], Encounter Date: 04/09/2024 Results Created Date Observation Date Name Description Value Unit Range Abnormal Flag Note LastModifiedBy Organization Detail LastModifiedTime 10/01/19 24 10/02/2023 HELIC OBACT ER PYLOR I AG, EIA, STOOL helicobacter pylori Ag, EIA, stool SEE NOTE HELIC OBACT ER PYLOR I AG, EIA, STOOL Micro Numbe r: [id number] Test Statu s: Final Speci men [...] Range : Not Detec leti Not Available [facility] [address], [place], [address], 10/02/2023 13:18:31 04/07/20 24 04/07/2024 COLOG UARD [...] of 10,00 0 indiv [facility]ual s at [place] [facility] risk for color ectal cance r [...] asymp tomat ic indiv idual s at [facility] risk for color ectal cance r. Follo [...] 112:1 016-1 030. TEST DESCR IPTIO N: [place] site algor ithmi c genesis sis of [...] years or older , who are at [facility] for color ectal cance r (CRC) . Colog uard has been appro rohan for use by the [place] FDA. The perfo rmanc e of Colog uard was estab lishe d in a cross secti onal study of [facility] adult s aged 50-84 . Colog uard [...] study of 0 indiv idual s at [place] [facility] risk for color ectal cance r [...] at www.c sang thomasd.c om. Not Available [facility] [address], [place], [address], 04/11/2024 17:19:08 12/13/19 24 12/13/2023 CT, abdom en + pelvi s, w/ contr ast No observ ation record ed. [place] [address], [place], [address], 12/23/2023 09:42:22 12/30/19 24 12/30/2023 CT, cervi bimal spine , w/o contr ast No observ ation record ed. [email or web address] [address], [place], [address], 12/30/2023 14:14:10 12/30/19 24 12/30/2023 XR, lumbo sacra l spine , 2 or 3 view No observ ation record ed. [email or web address] [facility] [address], [place], [address], 12/30/2023 14:14:21 01/22/20 24 01/22/2024 XR, chest No observ ation record ed. [email or web address], [place], [address], 01/22/2024 11:16:05 01/22/20 24 01/22/2024 LDCT, chest , for lung cance r scree audra No observ ation record ed. [address] [facility], [place], [address], 01/22/2024 17:06:54 01/22/20 24 01/22/2024 CT, angio gram, chest , w/ contr ast No observ ation record ed. [place] [address], [place], [address], 03/12/2024 11:08:31 02/24/20 24 02/24/2024 US, doppl er echoc ardio gram No observ ation record ed. [address] [facility], [place], [address], 03/12/2024 10:02:16 03/25/20 24 03/25/2024 XR, chest , 2 view No observ ation record ed. [address], [place], [address], 03/31/2024 15:49:25 03/25/20 24 03/25/2024 CT, angio gram, chest , w/ contr ast No observ ation record ed. [place] [address], [place], [address], 03/31/2024 15:49:25 04/02/20 24 04/02/2024 CT, brain , w/o contr ast No observ ation record ed. [address], [place], [address], 04/09/2024 11:57:47 04/02/20 24 04/02/2024 XR, chest No observ ation record ed. [address], [place], [address], 04/09/2024 11:57:47 04/29/20 24 04/08/2024 imagi ng/di agnos tic resul t No observ ation record ed. [address], [place], [address], 04/29/2024 09:51:53 Result Notes None recorded. Problems Name Problem SNOMED Code Status Onset Date Resolution Date Notes Provider Name and Address Organization Details Recorded Time Depressive disorder 65242901 Active 2022 Ang Patterson MD [address], [place], [address], [facility] 15:00:33 Anxiety disorder 441738496 Active 2022 Ang Patterson MD [address], [place], [address], [facility] 15:00:39 Post-trauma tic stress disorder 14011486 Active 2022 Ang Patterson MD [address], [place], [address], [facility] 15:00:45 Obesity 230047564 Active 2022 Ang Patterson MD [address], [place], [address], [facility] 15:01:02 Chronic neck pain 1020686731455 Active 2022 Ang Patterson MD [address], [address], [place], [address], [employer] 15:03:12 Chronic low back pain 154040091 Active 2022 Ang Patterson MD [address], [address], [place], [address], [facility] 15:03:20 Cervical spondylosis without myelopathy 692523103 Active 2022 Ang Patterson MD [address], [address], [place], [address], [facility] 15:17:42 Ex-smoker 8807768 Active 2022 Ang Patterson MD [address], [address], [place], [address], [facility] 15:17:55 Degeneratio n of cervical interverteb ral disc 06424197 Active 2022 Ang Patterson MD [address], [address], [place], [address], [facility] 14:38:13 Otalgia of right ear 1868896154 Active 2022 Ang Patterson MD [address], [place], [address], [facility] 09:56:32 Chronic idiopathic constipatio n 76499286 Active 2022 Ang Patterson MD [address], [address], [place], [address], [facility] 09:58:26 Gastroesoph ageal reflux disease without esophagitis 844094672 Active 2022 Ang Patterson MD [address], [address], [place], [address], [facility] 09:59:58 Xerostomia 26524474 Active 2022 Ang Patterson MD [address], [place], [address], [place] [facility] 3 10:05:03 Anemia 815466508 Active 2022 Ang Patterson MD [address], [place], [address], [employer] [place] [facility] 3 14:59:07 Vitamin D deficiency 26692898 Active 2023 Ang Patterson MD [address], [place], [address], [employer] [place] [facility] [employer] 4 10:31:01 Hyperlipide ana 06310116 Active 2023 Ang Patterson MD [address], [place], [address], [employer] [place] [facility] 4 10:31:30 Pain of bilateral hands 8349719944129 9109 Active 2023 Ang Patterson MD [address], [place], [address], [employer] [place] [facility] 4 10:34:43 Intussuscep tion of small intestine 185031841 Active 2023 SHIRA Mckeon [address], [place], [address], [place] [facility] 4 14:12:52 Pulmonary embolism 72045392 Active 2023 Ang Patterson MD [address], [place], [address], [employer] [place] [facility] [place] [facility] 4 10:05:37 Pulmonary embolism with pulmonary infarction 1495674275042 Active 2023 Ang Patterson MD [address], [place], [address], [place] [facility] [employer] [facility] 4 10:13:28 Dyspnea on exertion 90834948 Active 2023 Ang Patterson MD [address], [place], [address], [facility] [facility] 4 15:57:53 Tremor 57013363 Active 2023 Ang Patterson MD [address], [place], [address], [facility] 4 11:59:25 Problem Notes None recorded. Procedures Surgical History Date Name Laterality Status Provider Name and Address Organization Details Recorded Time 03/31/2024 Transition al_Care_Ma nagement completed [facility] 03/31/2024 15:42:49 03/12/2024 Transition al_Care_Ma nagement completed [facility] 03/12/2024 09:52:22 Imaging Results None recorded. Procedure [...] Details Last Updated DateTime 10/24/2023 32.5 kg/m2 52760.86 g Ang Patterson MD [address] [facility] [address], [place], [address], [facility] [employer] [facility] 10/24/2023 10:40:55 Date Recorded Body height Body temperature Heart rate Respiratory rate Oxygen saturation Systolic And Diastolic Provider Name and Address Organization Details Last Updated DateTime 165.1 cm 98 [degF] 98 /min 20 /min 99 % 132/72 mm[Hg] Alexx Resendiz [facility] [employer] [facility] 4 10:05:54 Date Recorded Body height Body temperature Heart rate Oxygen saturation Body mass index (BMI) Body weight Systolic And Diastolic Provider Name and Address Organization Details Last Updated DateTime 165.1 cm 98.7 [degF] 89 /min 98 % 33 kg/m2 67414.4 4 g 173/102 mm[Hg] Tana Brown MA [facility] [employer] [facility] 14:07:48 Date Recorded Heart rate Respiratory rate Oxygen saturation Inhaled oxygen flow rate Systolic And Diastolic Provider Name and Address Organization Details Last Updated DateTime 100 /min 24 /min 90 % 2 L/min 146/88 mm[Hg] Ang Patterson MD [address], [place] [address], [place], [address], [facility] [employer] [facility] 10:41:10 Date Recorded Body height Body mass index (BMI) Body weight Body temperature Provider Name and Address Organization Details Last Updated DateTime 03/12/2024 165.1 cm 30.5 kg/m2 18110.75 g 98.2 [degF] Alexx Resendiz [facility] [employer] 03/12/2024 09:56:29 Date Recorded Heart rate Respiratory rate Oxygen saturation Inhaled oxygen flow rate Provider Name and Address Organization Details Last Updated DateTime 03/31/2024 110 /min 22 /min 94 % 2 L/min Ang Patterson MD [address], [place] [address], [place], [address] , [facility] [employer] 03/31/2024 16:08:35 Date Recorded Body height Body mass index (BMI) Body weight Body temperature Systolic And Diastolic Provider Name and Address Organization Details Last Updated DateTime 03/31/2024 165.1 cm 32.1 kg/m2 56472.3 8 g 98.1 [degF] 144/90 mm[Hg] Alexx Resendiz [facility] [employer] 15:47:52 Date Recorded Heart rate Oxygen saturation Provider Name and Address Organization Details Last Updated DateTime 04/09/2024 96 /min 96 % Ang Patterson MD [address], [place] [address], [place], [address], [facility] [employer] 04/09/2024 12:43:19 Date Recorded Body height Body mass index (BMI) Body weight Body temperature Respiratory rate Systolic And Diastolic Provider Name and Address Organization Details Last Updated DateTime 165.1 cm 31.8 kg/m2 97165.4 9 g 97.9 [degF] 16 /min 146/86 mm[Hg] Alexx Resendiz [facility] [employer] 11:51:44 Social History Question Answer Notes LastModified by Organizat ion Details LastModified Time Tobacco Smoking Status Former Smoker Ang Patterson MD [address], [place], [address], [facility] [employer] [facility] 04/23/2023 15:18:12 Do You Have An Advance [...] Or The Highest Degree You Have Received? [id number] Information not available 04/23/2023 Have There Been [...] Do You Have A Medical Power Of Office Machine Installer? No Information not available 04/23/2023 How Many [...] anxious, or unable to sleep at night)? [id number] Information not available 04/23/2023 Family History Nothing [...] HAVE YOU BEEN HOSPITALIZED OR SEEN IN [facility] IN THE PAST YEAR ? N [...] ICD10 Code Diagnosis IMO Codes Diagnosis Note [id number] Ang Patterson MD [address] [address] 04/23/2023 14:37:09 04/23/2023 15:24:12 Depressive disorder 05719942 F32.A Anxiety disorder 9795485 06 F41.9 Post-traum atic stress disorder 23676958 F43.10 Obesity 335522886 E66.9 Ex-smoker 5416795 Z87.89 1 Chronic neck pain 340607 9822 107 M54.2 Chronic low back pain 27 5933568 M54.50 Cervical s pondylosis without myelopathy 641899281 M47.300 [id number] Ang Patterson MD [address] [address] 05/14/2023 17:26:14 05/14/2023 17:49:44 Chronic neck pain 2978465324 107 M54.2 Chronic low back pain 27 6291724 M54.50 Cervical s pondylosis without myelopathy 762988706 M47.812 Depressive disorder 3548 9007 F32.A Anxiety disorder 2931239 06 F41.9 Post-traum atic stress disorder 94777376 F43.10 Obesity 735624339 E66.9 Ex-smoker 5847763 Z87.89 1 Degenerati on of cervical intervertebral disc 47758081 M50.30 [id number] Ang Patterson MD [place] [address] 06/04/2023 09:43:47 06/04/2023 10:27:29 Adult health examination 055406289 Z00.00 Chronic neck pain 615904 9475 107 M54.2 Chronic low back pain 27 3876115 M54.50 Obesity 129528850 E66.9 Ex-smoker 9220370 Z87.89 1 Otalgia of right ear 033 8552446 H92.01 Screening colonoscopy 44 5343748 Z12.11 Chronic id iopathic constipation 17436279 K59.04 Gastroesop hageal reflux disease without esophagitis 570796517 K21.9 Screening mammography 24 703986 Z12.31 Cervical s pondylosis without myelopathy 910708579 M47.812 Xerostomia 24192104 R68. 2 [id number] Ang Patterson MD [place] 04186294-144 1 06/25/2023 14:39:36 06/25/2023 15:24:08 Chronic neck pain 5980628995 107 M54.2 Chronic low back pain 27 4548298 M54.50 Obesity 159190212 E66.9 Ex-smoker 7953357 Z87.89 1 Chronic id iopathic constipation 21329281 K59.04 Gastroesop hageal reflux disease without esophagitis 651034578 K21.9 Cervical s pondylosis without myelopathy 975606566 M47.812 Xerostomia 34331889 R68. 2 Anemia 422770111 D64.9 [id number] Ang Patterson MD [address] [address] 1 07/18/2023 15:27:03 07/18/2023 15:47:18 Chronic neck pain 8479283024 107 M54.2 Chronic low back pain 27 6159068 M54.50 Obesity 845809974 E66.9 [id number] Ang Patterson MD [address] [address] 1 08/22/2023 10:25:27 08/22/2023 10:43:48 Obesity 947641871 E66.9 Gastroesop hageal reflux disease without esophagitis 842706286 K21.9 Depressive disorder 3548 9007 F32.A 7067493 Ang Patterson MD [address] [address]039 1 10/24/2023 09:54:39 10/24/2023 10:45:37 Gastroesophageal reflux disease without esophagitis 062542616 K21.9 Obesity 556368812 E66.9 Vitamin D deficiency 347 51497 E55.9 Hyperlipidemia 94479667 E78.5 Pain of bi lateral hands 0557688809 9122299 M79.641 Screening colonoscopy 44 5801846 Z12.11 [id number] Ang Patterson MD [address] [address] 1 01/29/2024 13:56:02 01/29/2024 14:34:01 Intussusception of small intestine 755826907 K56.1 Chronic id iopathic constipation 59011022 K59.04 Obesity 393006735 E66.9 [id number] Ang Patterson MD [address] [address] 1 03/12/2024 09:48:48 03/12/2024 11:12:17 Vitamin D deficiency 92264702 E55.9 Hyperlipidemia 95628105 E78.5 Gastroesop hageal reflux disease without esophagitis 988405946 K21.9 Obesity 884298949 E66.9 Pain of bi lateral hands 3528774825 2786115 M79.641 Hospital i npatient stay within past 30 days 3454662185 106 Z76.89 Transition of care 45337 45046 105 Z75.8 Pulmonary embolism 33500 003 I26.99 Cervical s pondylosis without myelopathy 902764717 M47.812 Pulmonary embolism with pulmonary infarction 3927208694 102 I26.99 [id number] Ang Patterson MD [place] [address] 1 03/31/2024 15:36:12 03/31/2024 16:29:17 Transition of care 1367326057 105 Z75.8 Pulmonary embolism 88545 003 I26.99 Vitamin D deficiency 347 96783 E55.9 Hyperlipidemia 52439769 E78.5 Gastroesop hageal reflux disease without esophagitis 952955443 K21.9 Obesity 804430422 E66.9 Pain of bi lateral hands 6812302369 4192927 M79.641 Cervical s pondylosis without myelopathy 579575290 M47.812 Pulmonary embolism with pulmonary infarction 3791246064 102 I26.99 Dyspnea on exertion 6084 5006 R06.09 Screening for malignant neoplasm of colon 308617683 Z12.11 [id number] Ang Patterson MD [place] 283814-144 1 04/09/2024 11:38:36 04/09/2024 14:39:32 Transition of care 0714525754 105 Z75.8 Pulmonary embolism 94827 003 I26.99 Vitamin D deficiency 347 54147 E55.9 Hyperlipidemia 61247652 E78.5 Gastroesop hageal reflux disease without esophagitis 914865461 K21.9 Obesity 123121364 E66.9 Pain of bi lateral hands 4351092676 3099062 M79.641 Cervical s pondylosis without myelopathy 107339036 M47.812 Pulmonary embolism with pulmonary infarction 3542666667 102 I26.99 Dyspnea on exertion 6084 5006 R06.09 Tremor 52646687 R25.1 Hospital i npatient stay within past 30 days 5656334501 106 Z76.89 Health Concerns Section Related Observation LastModified by Organization Detai ls LastModified Time None Recorded Concern Status LastModified by Organization Details LastModified Time None Recorded Advance Directives Directive N: Payers Insurance Date Sequence Insurance Name Policy Number Policy Walsh Covered Member ID Walsh Member ID Guarantor Name 03/31/2024 1 [facility] [employer] [facility] - DOS PRIOR TO 2025 (MEDICAID REPLACEMENT - HMO) [id number] Anat Phelan [id number] Anat Phelan 12/26/2023 1 *SELF PAY* Ka rla Camdenenberger 03/30/2024 1 *SELF PAY* Ka rla Camdenenberger 03/31/2024 1 [place] [employer] [facility] - DOS PRIOR TO 2025 (MEDICAID REPLACEMENT - HMO) [id number] Anat Hannahchristianne [id number] Anat Phelan 03/31/2024 2 [place] Anat Phelan [id number] Anat Hannahchristianne 03/31/2024 1 [place] Anat Phelan [id number] Anat Cmadenchristianne 03/31/2024 2 [place] Anat Camdenchristianne [id number] Anat Hannahchristianne 03/31/2024 2 [place] Anat Camdenchristianne [id number] Anat Hannahchristianne 01/05/2025 1 [place] Anat Camdenchristianne [id number] Anat Hannahchristianne 03/31/2024 2 [place] CORRECTIONS Anat Phelan [id number] Anat Phelan Notes Date Note Type Note [...] PTSD and is f/u with Psych at [facility] for it. Pt is on meds by them and is doing overall well with it. Denies any mood swings/SI/HI. Pt was f/u with Endo at [facility] and is on chronic Prednisone from them for last couple years. Ang Patterson MD [address] [facility], [place], [address], [employer] 10/24/2023 10:42:51 01/29/2024 text/html Anat Phelan is [...] speak with case managment. SHIRA Mckeon [address] [facility], [place], [address], [employer] 01/29/2024 14:33:48 03/12/2024 text/html Hospital fuv:Pt has some insurance issues going on. Pt was admitted to [facility] on 02/22/24 due to not feeling well. Pt was found to have Pneumonia, PE, pulmonary infarction, pulmonary edema. Pt has finished her antibiotics and she is on Eliquis and [place]. Pt is needing refill on them. Pt will be seeing Pulmo at [facility] in few weeks. Pt has home O2 [...] PTSD and is f/u with Psych at [facility] for it. Pt is on meds by them and is doing overall well with it. Denies any mood swings/SI/HI. Pt was f/u with Endo at [facility] and is on chronic Prednisone from them for last couple years. Ang Patterson MD [address] [place] [address], [facility] [address], [place], [address], [facility] [employer] 03/12/2024 11:10:25 03/31/2024 text/html Hospital fuv: Pt was seen in ED again on 03/25/24 due to SOB and chest pain and got work up done and was found to have Pneumonia. So pt was d/c on Z-jeanmarie and hydrocodone from ED. Pt has finished Z-jeanmarie and is feeling much better now. No fever/chills/n/v/d/sp utum. Pt will be seeing Pulmo at [facility] on 04/08/24. Pt has home O2 set up done already and she has with her. Pt was admitted to [facility] on 02/22/24 due to not feeling well. Pt was found to have Pneumonia, PE, pulmonary infarction, pulmonary edema. Pt has finished her antibiotics and she is on Eliquis and [place]. Pt is needing refill on them. Pt [...] PTSD and is f/u with Psych at [facility] for it. Pt is on meds by them and is doing overall well with it. Denies any mood swings/SI/HI. Pt was f/u with Endo at [facility] and is on chronic Prednisone from them for last couple years. Ang Patterson MD [address] [place] [address], [facility] [address], [place], [address], [facility] [employer] 03/31/2024 16:13:31 04/09/2024 text/html Hospital fuv: Pt [...] body pain and she is asking for [place]. Pt is not taking her Gabapentin. Pt was seen couple weeks ago and was given [place] by me # 40 on 03/21/24 and [...] week. Pt is f/u with Pulmo at [facility] for her Pneumonia, PE and chronic hypoxia and is on meds by them. Pt has home O2 set up for her home. Pt was admitted to [facility] on 02/22/24 due to not feeling well. Pt was found to have Pneumonia, PE, pulmonary infarction, pulmonary edema. Pt has finished her antibiotics and she is on Eliquis and [place]. Pt is needing refill on them. Pt [...] PTSD and is f/u with Psych at [facility] for it. Pt is on meds by them and is doing overall well with it. Denies any mood swings/SI/HI. Pt was f/u with Endo at [facility] and is on chronic Prednisone from them for last couple years. Ang Patterson MD [address] [facility], [place] [address], [place], [address], [facility] [employer] [facility] [employer] 04/09/2024 14:38:39 OBGyn Episode No OBEpisode recorded.
--- OUTSIDE RECORDS SUMMARY | 2025-08-19 10:24 | XMS_ITS | Encounter Summary ---
Author Organization [facility] Address [address] [place] [address] Phone Care Team Providers Care Tube Man Name Role Phone Kendrick Chacon MD Unavailable Edy Yadav MD Unavailable Keven Gonzalez DO Primary Care Provider [phone] Encounter Details Date Type Department Care Team (Late st Contact Info) Description 08/03/2025 Results Follow-Up [facility] Medicine Rheumatology [address] [facility] Advanced Medicine 5th [place] [address] [place] [address] Jessie Sherwood MD [address] [place] [address] XR Hand Bilateral 3 or [...] 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
--- OUTSIDE RECORDS SUMMARY | 2025-08-19 10:24 | XMS_ITS | Clinical Summary ---
Author Organization [facility] Address [address] [place] [address] Care Team Providers Care Corporate Wellness Coordinator Name Role Phone Kendrick Chacon MD Unavailable [...] Department Care Team Description 08/03/2025 Results Follow-Up [facility] Medicine Rheumatology [address] [place] [address] Advanced Medicine 5th [place] [address] [place] [address] Jessie Sherwood MD XR Hand Bilateral 3 or More Views of Each 07/28/2025 11:21 AM CUSTOMS CONSULTANT - 07/28/2025 11:59 PM CUSTOMS CONSULTANT Hospital Encounter [facility] [address] [place] [address] Jessie Sherwood MD Rheumatoid arthritis 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 factor (HCC) Discharge Disposition: Discharge to home or self care 07/28/2025 10:20 AM CUSTOMS CONSULTANT [facility] [address] [place] [address] Advanced Medicine 5th [place] [address] [place] [address] Jessie Sherwood MD Rheumatoid arthritis of multiple [...] 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 Not on file Not on file Last Filed Vital Signs Vital Sign Reading Time Taken Comments Blood Pressure 132/81 07/28/2025 10:24 AM CUSTOMS CONSULTANT Pulse 73 07/28/2025 10:24 AM CUSTOMS CONSULTANT Temperature 36.7 C (98.1 F) 07/28/2025 10:24 AM CUSTOMS CONSULTANT Respiratory Rate 18 05/10/2021 3:55 PM CDT Oxygen Saturation 97% 05/10/2021 3:55 PM CDT Inhaled Oxygen Concentration - - Weight 83 kg (183 lb) 07/28/2025 10:24 AM CUSTOMS CONSULTANT Height 165.1 cm (5' 5) 07/28/2025 10:24 AM CUSTOMS CONSULTANT Body Mass Index 30.45 07/28/2025 10:24 AM CUSTOMS CONSULTANT Plan of Treatment Health Maintenance Due Date [...] Read Routine (OP Routine) 07/28/2025 11:33 AM CUSTOMS CONSULTANT Rheumatoid arthritis 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 factor (HCC) XR WRIST BILATERAL 3 OR MORE VIEWS Schedule Routine, Read Routine (OP Routine) 07/28/2025 11:33 AM CUSTOMS CONSULTANT Rheumatoid arthritis 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 factor (HCC) HEPATITIS C ANTIBODY Routine 07/15/2024 12:49 PM CUSTOMS CONSULTANT Effusion of joint, unspecified location Arthralgia, unspecified joint from Last 3 Months or Most Recently Relevant to Health Maintenance Results * XR Wrist Bilateral 3 or More Views (07/28/2025 11:33 AM CUSTOMS CONSULTANT) Anatomical Region Laterality Modality Upper Extremities, Wrist Compute d Radiography 07/28/2025 12:2 1 PM CUSTOMS CONSULTANT Impressions 07/28/2025 12:21 PM CUSTOMS CONSULTANT 1. 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 Electronically signed by: Alvaro Zimmer M.D. Narrative 07/28/2025 12:21 PM CUSTOMS CONSULTANT EXAMINATION: XR WRIST BILATERAL 3 OR MORE [...] More Views of Each (07/28/2025 11:33 AM CUSTOMS CONSULTANT) Anatomical Region Laterality Modality Upper Extremities, Hand Computed Radiography 07/28/2025 12:2 1 PM CUSTOMS CONSULTANT Impressions 07/28/2025 12:21 PM CUSTOMS CONSULTANT 1. 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 Electronically signed by: Alvaro Zimmer M.D. Narrative 07/28/2025 12:21 PM CUSTOMS CONSULTANT EXAMINATION: XR WRIST BILATERAL 3 OR MORE [...] CUSTOMS CONSULTANT 07/15/2024 1:25 PM CUSTOMS CONSULTANT Jessie Sherwood MD LAB MICROBIOLOGY - GENERAL ORDERABLES Final Result [facility] Department [place] [address] from Last 3 Months or Most Recently Relevant to Health Maintenance Insurance [facility] Care Teams Corporate Wellness Coordinator Relationship Specialty Start Date End Date Keven Gonzalez DO [address] [place] [address] PCP - General Family Medicine 05/29/24 Kendrick Chacon MD Emergency Medicine 04/27/20 Edy Yadav MD [address] [facility], [place] [address] Consulting Physician Pain Management 04/28/21
--- OUTSIDE RECORDS SUMMARY | 2025-08-19 10:24 | XMS_ITS | Clinical Summary ---
Author Organization [facility] Address [address] [facility] [place] [address] Care Team Providers Care Patient Day Coordinator Name Role Phone Keven Gonzalez DO Primary Care Provider [phone] Source Comments [facility],non-owned Affiliates and Associated Physician Practices is amultiple site organization consisting of ambulatory clinics and hospital sitesin [place], [place], [place] and [place]. This disclosure is being madepursuant to the Care Everywhere program and may not contain all information available regarding this patient. Last updated 18.[facility] Allergies Active Allergy Reactions Criticality Noted Date [...] Active vitamin D, ergocalciferol, (DRISDOL) 1.25 MG (48033 UT) capsule TAKE 1 CAPSULE BY MOUTH [...] naloxone HCl (Narcan) 4 MG/0.1ML nasal spray [place] 1 (one) spray into the nose as [...] Telephone [facility] - Centralized Scheduling [address] [place] [address] Maximo Haywood MD Reschedule Appointment (05/27-Left message to vishule Chastity's 08/12 appt- reschedule to the next available-MyChart note entered on 05/24-Not read--DLM-MS) from Last 3 Months Immunizations Immunization Administration Dates Next Due COVID MATTHEW PRIMARY 18+YR 02/12/2021 HEP A PED/ADULT VACCINE [...] on file Legal Sex 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 Gender Identity Not on file Sexual Orientation [...] st Contact Info) Description 09/09/2025 10:00 AM SUPERVISOR PLASTICS Office Visit [facility] - ENT [address] [place] [phone] Maximo Haywood MD [address] [place] [address] [address] DEPT [place] [phone] Health Maintenance Due Date Last Done Comments [...] patient's age to complete this topic Insurance [facility] SELF PAY NO INSURANCE Member Subscriber Plan / Payer (Ef fective for All Dates) Name:Anat Phelan Relation to Subscriber:Self Name:Anat Phelan Payer ID:Not on file Group ID:Not on file Type:Self Pay Address: [place], [place] Advance Directives Documents on File Type Date Recorded 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
== END 2025-08-19 09:31 | disposition home or self-care (01) ==
LOC: ANHFOHIMG 09:32
PROVIDERS: PCP Family Medicine; Visit Provider Family Medicine
DX: Z12.31 Encounter for screening mammogram for malignant neoplasm of breast (principal)
CPT/HCPCS: 77063; 77067

== ENCOUNTER 2025-09-01 15:37 | Emergency (ER) | payer OTHER, SELFPAY ==
--- NOTE | ~2025-09-01 | CT_ITS ---
EXAMINATION: CT lumbar spine wo con DATE: 09/01/2025 18:07 INDICATION: Worsening low back pain. Recent intrathecal pain pump insertion. TECHNIQUE: Computed tomography (CT) of the lumbar spine was performed without intravenous contrast. Automated exposure control and iterative reconstruction technique were employed. The dose-length product was 702.05 mGy-cm. COMPARISON: Lumbar spine MR dated 01/24/2025 FINDINGS: 9 degrees lumbar levocurvature. Sagittal alignment is normal. Mild likely physiologic anterior wedging at T11-L1. No fracture. Severe disc height loss with vacuum phenomena at L5-S1. Moderate to severe right-sided prominent disc height loss at L3-L4. Mild disc height loss at L2-L3. There are few diverticula along the sigmoid colon without adjacent from trace stranding to suggest diverticular colitis. Paravertebral soft tissues are otherwise unremarkable. There is a reportedly newly placed intrathecal pain pump catheter which extends into the central canal by interspinous process approach at T12-L1 which extends cephalad along the anterior aspect of the central canal to the cephalad-most images at the inferior endplate of T10. Tiny density at the level of the inferior endplate of T9 on the speech writer topogram likely represents the distal tibia. Small amount of colonic nonloculated fluid in the subcutaneous fat surrounding the catheter at the level of the right L1-L3. The following disc levels are specifically discussed: T11-T12: Disc is minimally bulging. There is mild bilateral facet joint osteoarthritis. There is no neural foraminal stenosis. There is no central canal stenosis. T12-L1: Disc is minimally bulging. There is mild bilateral facet joint osteoarthritis. There is no neural foraminal stenosis. There is no central canal stenosis. L1-L2: Disc is minimally bulging. There is mild bilateral facet joint osteoarthritis. There is no neural foraminal stenosis. There is no central canal stenosis. L2-L3: Disc is mildly bulging. There is mild bilateral facet joint osteoarthritis. There is mild bilateral neural foraminal stenosis. There is mild central canal stenosis. L3-L4: Disc is bulging. There is mild bilateral facet joint osteoarthritis. There is mild to moderate bilateral neural foraminal stenosis. There is mild central canal stenosis. L4-L5: Disc is bulging. There is mild left and moderate right facet joint osteoarthritis. There is mild bilateral neural foraminal stenosis. There is mild central canal stenosis. L5-S1: Disc is bulging. There is moderate bilateral facet joint osteoarthritis. There is mild right and moderate left neural foraminal stenosis. There is minimal central canal stenosis. IMPRESSION: 1. Severe lower lumbar spondylosis. No acute osseous abnormality. 2. Small amount of likely postoperative nonloculated fluid in the subcutaneous tissues surrounding the recently placed intrathecal pain pump and catheter distal tip which is positioned in the central canal at the level of the inferior endplate of T9. Reviewed, dictated and finalized at location A. HOUSE TECHNICIAN IMPRESSION: 1. Severe lower lumbar spondylosis. No acute osseous abnormality. 2. Small amount of likely postoperative nonloculated fluid in the subcutaneous tissues surrounding the recently placed intrathecal pain pump and catheter dist al tip which is positioned in the central canal at the level of the inferior en dplate of T9.
--- OUTSIDE RECORDS SUMMARY | 2025-09-01 15:39 | XMS_ITS | Clinical Summary ---
Author Organization [facility] Address [address] [facility] [place] [address] Care Team Providers Care Manager Internal Name Role Phone Keven Gonzalez DO Primary Care Provider [phone] Source Comments [facility],non-owned Affiliates and Associated Physician Practices is amultiple site organization consisting of ambulatory clinics and hospital sitesin [place], [place], [place] and [place]. This disclosure is being madepursuant to the Care Everywhere program and may not contain all information available regarding this patient. 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 Gender Identity Not on file Sexual [...] st Contact Info) Description 09/09/2025 10:00 AM RESIDENTIAL SALES MANAGER Office Visit [facility] - ENT [address] [place] [address] Maximo Haywood MD [address] [facility] [address] [place] [address] Health Maintenance Due Date Last Done Comments [...] to complete this topic Insurance [facility] SELF PAY NO INSURANCE Member Subscriber Plan / Payer (Ef fective for All Dates) Name:Anat Phelan Relation to Subscriber:Self Name:Anat Phelan Payer ID:Not on file Group ID:Not on file Type:Self Pay Address: [place], [place] Advance Directives Documents on File Type Date Recorded Patient Assistant Director Expl anation Adv Directive/Living Will/POA 01/01/2017 * Full Code (Latest Code Status on File) Date Activated Date Inactivated Comments 01/01/2017 7:27 PM 01/01/2017 9:50 PM Care Teams Manager Internal Relationship Specialty Start Date End Date Keven Gonzalez DO [address] [place] [phone] PCP - General Family Medicine 05/13/25
--- OUTSIDE RECORDS SUMMARY | 2025-09-01 15:40 | XMS_ITS | Data Portability ---
Author Organization [facility], Main Office Address [address] [place] [address] Assessment Encounter Date Assessment Date Assessment LastModified [...] schedule. Cont f/u with Psych at [facility] as per schedule. Cont f/u with Gyne at [place] as per schedule. HM: WWE - 06/23, [...] Pt will be calling her Pulmo at [facility] [place] and see if she can be seen sooner. Pt declined for referral to Cardio. All meds verified with pt. [place] 5/325 # 40 given today until she can see Wedding Designer. Meds as directed. Good liquid and fiber intake explained. Diet and exercise explained in detail. BP diary education given and call us if any concerns. F/u with PT as per schedule. F/u with GI as per schedule. Cont f/u with Pulmo at [facility] [place] as per schedule. Cont f/u with Psych at [facility] as per schedule. Cont f/u with Gyne at [facility] [place] as per schedule. HM: WWE - 06/23, normal as per pt. Cont f/u with Gyne as per schedule. Mammo - 2 yrs ago. Ordered. Colonoscopy - Referred to GI. Flu - Pt declined. Tdap, Pneumo, Shingrix - At pharmacy/HD. F/u in 1 month. Lipids before next visit. Annual labs in 06/25. [email or web address] Not available 03/12/2024 11:09:21 03/31/2024 03/31/2024 48 [...] be seeing her Pulmo on 04/08/24 at [facility] [place]. Will refer pt to Cardio, Pain clinic. [...] per schedule. Cont f/u with Pulmo at [place] as per schedule. Cont f/u with Psych at [facility] as per schedule. Cont f/u with Gyne at [place] as per schedule. HM: WWE - 06/23, normal as per pt. Cont f/u with Gyne as per schedule. Mammo - 2 yrs ago. Ordered. Colonoscopy - Referred to GI. Cologuard ordered. Flu - Pt declined. Tdap, Pneumo, Shingrix - At pharmacy/HD. F/u in 1-2 months. Annual labs in 06/25. [email or web address] Not available 03/31/2024 16:12:56 04/09/2024 04/09/2024 48 [...] per schedule. Cont f/u with Pulmo at [place] as per schedule. Cont f/u with Psych at [facility] as per schedule. Cont f/u with Gyne at [place] as per schedule. Educated pt about alarming [...] F/u as directed. Annual labs in 06/25. [email or web address] Not available 04/09/2024 14:37:51 Plan of Treatment Reminders Order Date Submit Date Provider Last Modified By Organization Details Last Modified Time Details Appointments None recorded. Lab noninvasive colorectal cancer DNA + occult blood screening, QL, stool 2023 024 [employer], [address], [address], [place], [address], 17:19:08 lipid panel, serum [address] (Lab), [address] [place], [address], 4 08:11:23 lipid panel, serum [address] (Lab), [address] [place], [address], 08:30:44 Referral neurologist referral - Please call patient to schedule an appointment . Thank you. 2023 024 [email or web address] [facility] - Neurology, [address], [place], [address], 08:52:35 cardiologis t referral - Please call patient to schedule an appointment . Thank you. 2023 024 [email or web address] [facility] Heart And Vascular Referral Fax Line, [address], [address], [place], [address], 07:47:52 pain management referral - Please call patient to schedule an appointment . Thank you. 2023 024 [email or web address] [facility] Pain Management, [address], [place], [address], 4 07:46:41 hematologis t referral - Multiple PEs, ex-smoker. Please call patient to schedule an appointment . Thank you. 2023 024 [email or web address] Matthew Whitman Nae TUCKER, [address], [address], [place], [address], 08:54:02 gastroenter ologist referral - Patient has new onset intussuscep tion , found on CT 01/21, not present on CT 12/12. Diverticulo sis. Please call patient to schedule an appointment . Thank you. 2023 024 [email or web address] [facility] - Gastroenterol ogy, [address], [address], [place], [address], 4 08:51:43 gastroenter ologist referral - Please call patient to schedule an appointment . 2023 024 [email or web address] Brenden Carlson MD, [address], [address], [place], [address], 4 08:35:15 Procedures None recorded. Surgeries None recorded. Imaging XR, hand, 3 or more view 2023 024 [email or web address] Not available 09:04:28 Medication Orders ipratropium 0.5 mg-albutero l 3 mg (2.5 mg base)/3 mL nebulizatio n soln 2023 024 [facility]14041, [address], [place], [place], [id number], 4 12:05:29 albuterol sulfate HFA 90 mcg/actuati on aerosol inhaler 2023 [facility] #86974, [address], [place], [place], [id number], 4 12:05:29 furosemide 20 mg tablet 2023 [facility] #77639, [address], [place], [place], [id number], 4 12:05:30 omeprazole 40 mg capsule,del ayed release 2023 [facility] #67656, [address], [place], [place], [id number], 4 12:05:30 famotidine 40 mg tablet 2023 [facility] #45595, [address], [place], [place], [id number], 4 12:05:29 atorvastati n 10 mg tablet 2023 [facility] #79569, [address], [place], [place], [id number], 4 12:05:33 ipratropium 0.5 mg-albutero l 3 mg (2.5 mg base)/3 mL nebulizatio n soln 2023 024 [facility] #82324, [address], [place], [place], [id number], 4 16:00:21 Eliquis 5 mg tablet 2023 024 [facility] #03116, [address], [place], [place], [id number], 4 16:00:24 albuterol sulfate HFA 90 mcg/actuati on aerosol inhaler 2023 024 [facility] #89794, [address], [place], [place], [id number], 4 16:00:26 furosemide 20 mg tablet 2023 024 [facility] #00671, [address], [place], [place], [id number], 4 16:00:26 gabapentin 600 mg tablet 2023 024 [facility] #26594, [address], [place], [place], [id number], 4 16:00:23 baclofen 20 mg tablet 2023 024 [facility] #02892, [address], [place], [place], [id number], 4 16:00:31 atorvastati n 10 mg tablet 2023 024 [facility] #56307, [address], [place], [place], [id number], 4 16:00:27 ergocalcife rol (vitamin D2) 1,250 mcg (50,000 unit) capsule 2023 024 [facility] #36002, [address], [place], [place], [id number], 4 16:00:29 omeprazole 40 mg capsule,del ayed release 2023 024 [facility] #91997, [address], [place], [place], [id number], 4 16:00:27 famotidine 40 mg tablet 2023 024 [facility] #51104, [address], [place], [place], [id number], 4 16:00:21 ipratropium 0.5 mg-albutero l 3 mg (2.5 mg base)/3 mL nebulizatio n soln 2023 [facility] #44297, [address], [place], [place], [id number], 4 10:22:20 Eliquis 5 mg tablet 2023 [facility] #30740, [address], [place], [place], [id number], 4 10:22:22 hydrocodone 5 mg-acetamin ophen 325 mg tablet 2023 [facility] #37168, [address], [place], [place], [id number], 4 10:22:59 albuterol sulfate HFA 90 mcg/actuati on aerosol inhaler 2023 024 [facility] #89910, [address], [place], [place], [id number], 4 10:23:13 furosemide 20 mg tablet 2023 024 [facility] #67331, [address], [place], [place], [id number], 4 10:46:07 atorvastati n 10 mg tablet 2023 024 [facility] #45056, [address], [place], [place], [id number], 4 10:22:22 gabapentin 300 mg capsule 2023 024 [email or web address] [facility] #72368, [address], [place], [place], [id number], 4 16:01:49 ergocalcife rol (vitamin D2) 1,250 mcg (50,000 unit) capsule 2023 024 [facility] #23441, [address], [place], [place], [id number], 4 10:22:22 omeprazole 40 mg capsule,del ayed release 2023 024 [facility] #25995, [address], [place], [place], [id number], 4 10:22:24 famotidine 40 mg tablet 2023 024 [facility] #88790, [address], [place], [place], [id number], 4 10:22:21 docusate sodium 100 mg capsule 2023 024 [facility] #49944, [address], [place], [place], [id number], 4 14:26:23 phentermine 37.5 mg tablet 2023 024 [facility] #47954, [address], [place], [place], [id number], 4 10:13:02 diclofenac sodium 75 mg tablet,tarsha yed release 2023 024 [facility] #19230, [address], [place], [place], [id number], 4 10:36:23 atorvastati n 10 mg tablet 2023 024 [facility] #65939, [address], [place], [place], [id number], 4 10:32:43 phentermine 37.5 mg tablet 2023 024 [email or web address] [facility] #70060, [address], [place], [place], [id number], 4 10:13:02 ergocalcife rol (vitamin D2) 1,250 mcg (50,000 unit) capsule 2023 024 [facility] #48949, [address], [place], [place], [id number], 4 10:32:39 omeprazole 40 mg capsule,del ayed release 2023 024 [facility] #98984, [address], [place], [place], [id number], 4 10:32:40 famotidine 40 mg tablet 2023 024 [facility] #19259, [address], [place], [place], [id number], 4 10:32:42 Patient TargetsNo targets recorded. Patient Instructions Encounter Date Encounter Id Patient Instructions Last Modified By Organization Details Last Modified Time 10/24/2023 [id number] learning about obesity [email or web address] Not available 10/24/2023 10:32:32 03/12/2024 [id number] learning about obesity [email or web address] Not available 03/12/2024 10:22:13 Thank you for [...] Medical Equipment needed: Billing Guidelines CPT code 24863- Transitional Care Management services with moderate medical decision complexity (xaaw-gr-tkrm visit within 14 days of discharge). CPT code 32785- Transitional Care Management services with high medical decision complexity (irzf-pg-mjwp visit within 7 days of discharge). Not available 03/12/2024 09:52:22 03/31/2024 [id number] learning about obesity [email or web address] Not available 03/31/2024 16:00:11 Thank you for [...] to discuss. Not available 03/31/2024 15:42:48 04/09/2024 [id number] Thank you for your visit to our [...] Not available 04/09/2024 11:46:58 Reason for Referral Licensed Nuclear Control Room Operator Referral for Screening colonoscopy Please call patient to schedule an appointment. Referring Physician: Ang Patterson [facility], Encounter Date: 10/24/2023 Licensed Nuclear Control Room Operator Referral for Intussusception of small intestine Patient has new onset intussusception , found on CT 01/21, not present on CT 12/12. Diverticulosis. Please call patient to schedule an appointment. Thank you. Referring Physician: Janneth Rogers [facility], Encounter Date: 01/29/2024 Multiple PEs, ex-smoker. Ple ase call patient to schedule an appointment. Thank you. Referring Physician: Ang Patterson [facility], Encounter Date: 03/12/2024 Pain Management Referral for Cervical spondylosis without myelopathy Please call patient to schedule an appointment. Thank you. Referring Physician: Ang Patterson [facility], Encounter Date: 03/31/2024 Marketing Graphics Specialist Referral for Dy spnea on exertion Please call patient to schedule an appointment. Thank you. Referring Physician: Ang Patterson [facility], Encounter Date: 03/31/2024 Neurologist Referral for Kory mor B/l UE tremors for last 1-2 weeks. Please call patient to schedule an appointment. Thank you. Referring Physician: Ang Patterson [facility], Encounter Date: 04/09/2024 Results Created Date Observation Date Name Description Value Unit Range Abnormal Flag Note LastModifiedBy Organization Detail LastModifiedTime 10/01/19 24 10/02/2023 HELIC OBACT ER PYLOR I AG, EIA, STOOL helicobacter pylori Ag, EIA, stool SEE NOTE HELIC OBACT ER PYLOR I AG, EIA, STOOL Micro Numbe r: [id number] Test Statu s: Final Speci men [...] Range : Not Detec leti Not Available [employer] [address], [place], [address], 10/02/2023 13:18:31 04/07/20 24 04/07/2024 COLOG UARD [...] of 10,00 0 indiv [place]ual s at [place] risk for color ectal cance r [...] asymp tomat ic indiv idual s at [facility] risk for color ectal cance r. Follo [...] 112:1 016-1 030. TEST DESCR IPTIO N: [place] site algor ithmi c genesis sis of [...] years or older , who are at [facility] for color ectal cance r (CRC) . Colog uard has been appro rohan for use by the [place]. FDA. The perfo rmanc e of Colog uard was estab lishe d in a cross secti onal study of [facility] adult s aged 50-84 . [...] study of 0 indiv idual s at [place] [facility] risk for color ectal cance r [...] at www.c sang thomasd.c om. Not Available [employer] [address], [place], [address], 04/11/2024 17:19:08 12/13/19 24 12/13/2023 CT, abdom en + pelvi s, w/ contr ast No observ ation record ed. [place] [address], [place], [address], 12/23/2023 09:42:22 12/30/19 24 12/30/2023 CT, cervi bimal spine , w/o contr ast No observ ation record ed. [email or web address] [address], [place], [address], 12/30/2023 14:14:10 12/30/19 24 12/30/2023 XR, lumbo sacra l spine , 2 or 3 view No observ ation record ed. [facility] [[email or web address]] [address], [place], [address], 12/30/2023 14:14:21 01/22/20 24 01/22/2024 XR, chest No observ ation record ed. [email or web address], [place], [address], 01/22/2024 11:16:05 01/22/20 24 01/22/2024 LDCT, chest , for lung cance r scree audra No observ ation record ed. [address] [facility], [place], [address], 01/22/2024 17:06:54 01/22/20 24 01/22/2024 CT, angio gram, chest , w/ contr ast No observ ation record ed. [place] [address], [place], [address], 03/12/2024 11:08:31 02/24/20 24 02/24/2024 US, doppl er echoc ardio gram No observ ation record ed. [address] [facility], [place], [address], 03/12/2024 10:02:16 03/25/20 24 03/25/2024 XR, chest , 2 view No observ ation record ed. [address], [place], [address], 03/31/2024 15:49:25 03/25/20 24 03/25/2024 CT, angio gram, chest , w/ contr ast No observ ation record ed. [place] [address], [place], [address], 03/31/2024 15:49:25 04/02/20 24 04/02/2024 CT, brain , w/o contr ast No observ ation record ed. [address], [place], [address], 04/09/2024 11:57:47 04/02/20 24 04/02/2024 XR, chest No observ ation record ed. [address], [place], [address], 04/09/2024 11:57:47 04/29/20 24 04/08/2024 imagi ng/di agnos tic resul t No observ ation record ed. [address], [place], [address], 04/29/2024 09:51:53 Result Notes None recorded. Problems Name Problem SNOMED Code Status Onset Date Resolution Date Notes Provider Name and Address Organization Details Recorded Time Depressive disorder 23567269 Active 2022 Ang Patterson MD [address], [place], [address], [facility] 3 15:00:33 Anxiety disorder 114523548 Active 2022 Ang Patterson MD [address], [place], [address], [facility] 3 15:00:39 Post-trauma tic stress disorder 65923805 Active 2022 Ang Patterson MD [address], [place], [address], [facility] 3 15:00:45 Obesity 401431573 Active 2022 Ang Patterson MD [address], [place], [address], [facility] 3 15:01:02 Chronic neck pain 8537788187920 Active 2022 Ang Patterson MD [address], [place], [address], [facility] 3 15:03:12 Chronic low back pain 443128485 Active 2022 Ang Patterson MD [address], [place], [address], [facility] 3 15:03:20 Cervical spondylosis without myelopathy 959627042 Active 2022 Ang Patterson MD [address], [address], [place], [address], [facility] 3 15:17:42 Ex-smoker 9205530 Active 2022 Ang Patterson MD [address], [place], [address], [facility] 3 15:17:55 Degeneratio n of cervical interverteb ral disc 88985590 Active 2022 Ang Patterson MD [address], [address], [place], [address], [facility] 3 14:38:13 Otalgia of right ear 2874679622 Active 2022 Ang Patterson MD [address], [place], [address], [facility] 3 09:56:32 Chronic idiopathic constipatio n 61623398 Active 2022 Ang Patterson MD [address], [place], [address], [facility] 3 09:58:26 Gastroesoph ageal reflux disease without esophagitis 551922271 Active 2022 Ang Patterson MD [address], [place], [address], [facility] 3 09:59:58 Xerostomia 38852266 Active 2022 Ang Patterson MD [address], [place], [address], [place] [facility] 3 10:05:03 Anemia 826185518 Active 2022 Ang Patterson MD [address], [place], [address], [facility] [place] [facility] 3 14:59:07 Vitamin D deficiency 19335418 Active 2023 Ang Patterson MD [address], [place], [address], [facility] [place] [facility] [employer] 4 10:31:01 Hyperlipide ana 20637466 Active 2023 Ang Patterson MD [address], [place], [address], [facility] [place] [facility] 4 10:31:30 Pain of bilateral hands 6806139194975 9109 Active 2023 Ang Patterson MD [address], [place], [address], [facility] [place] [facility] 4 10:34:43 Intussuscep tion of small intestine 920192824 Active 2023 SHIRA Mckeon [address], [place], [address], [place] [facility] 4 14:12:52 Pulmonary embolism 43650918 Active 2023 Ang Patterson MD [address], [place], [address], [facility] [place] [facility] 4 10:05:37 Pulmonary embolism with pulmonary infarction 5874218066013 Active 2023 Ang Patterson MD [address], [place], [address], [place] [facility] [email or web address] [facility] 4 10:13:28 Dyspnea on exertion 35890386 Active 2023 Ang Patterson MD [address], [place], [address], [facility] [employer] [facility] 4 15:57:53 Tremor 36033182 Active 2023 Ang Patterson MD [address], [place], [address], [facility] [employer] [facility] 4 11:59:25 Problem Notes None recorded. Procedures Surgical History Date Name Laterality Status Provider Name and Address Organization Details Recorded Time 03/31/2024 Transition al_Care_Ma nagement completed [facility] 03/31/2024 15:42:49 03/12/2024 Transition al_Care_Ma nagement completed [facility] 03/12/2024 09:52:22 Imaging Results None recorded. [...] Details Last Updated DateTime 10/24/2023 32.5 kg/m2 94564.86 g Ang Patterson MD [address], [place], [address], [facility] [employer] [facility] 10/24/2023 10:40:55 Date Recorded Body height Body temperature Heart rate Respiratory rate Oxygen saturation Systolic And Diastolic Provider Name and Address Organization Details Last Updated DateTime 165.1 cm 98 [degF] 98 /min 20 /min 99 % 132/72 mm[Hg] Alexx Resendiz [facility] [employer] [facility] 4 10:05:54 Date Recorded Body height Body temperature Heart rate Oxygen saturation Body mass index (BMI) Body weight Systolic And Diastolic Provider Name and Address Organization Details Last Updated DateTime 165.1 cm 98.7 [degF] 89 /min 98 % 33 kg/m2 47569.4 4 g 173/102 mm[Hg] Tana Brown MA [facility] [employer] [facility] 14:07:48 Date Recorded Heart rate Respiratory rate Oxygen saturation Inhaled oxygen flow rate Systolic And Diastolic Provider Name and Address Organization Details Last Updated DateTime 100 /min 24 /min 90 % 2 L/min 146/88 mm[Hg] Ang Patterson MD [address] [place] [address], [place], [address], [facility] [employer] [facility] 10:41:10 Date Recorded Body height Body mass index (BMI) Body weight Body temperature Provider Name and Address Organization Details Last Updated DateTime 03/12/2024 165.1 cm 30.5 kg/m2 28781.75 g 98.2 [degF] Alexx Resendiz [facility] [employer] 03/12/2024 09:56:29 Date Recorded Heart rate Respiratory rate Oxygen saturation Inhaled oxygen flow rate Provider Name and Address Organization Details Last Updated DateTime 03/31/2024 110 /min 22 /min 94 % 2 L/min Ang Patterson MD [address], [place] [address], [place], [address] , [facility] [employer] 03/31/2024 16:08:35 Date Recorded Body height Body mass index (BMI) Body weight Body temperature Systolic And Diastolic Provider Name and Address Organization Details Last Updated DateTime 03/31/2024 165.1 cm 32.1 kg/m2 64298.3 8 g 98.1 [degF] 144/90 mm[Hg] Alexx Res[employer]iz [facility] [employer] 15:47:52 Date Recorded Heart rate Oxygen saturation Provider Name and Address Organization Details Last Updated DateTime 04/09/2024 96 /min 96 % Ang Patterson MD [address], [place] [address], [place], [address], [facility] [employer] 04/09/2024 12:43:19 Date Recorded Body height Body mass index (BMI) Body weight Body temperature Respiratory rate Systolic And Diastolic Provider Name and Address Organization Details Last Updated DateTime 165.1 cm 31.8 kg/m2 12740.4 9 g 97.9 [degF] 16 /min 146/86 mm[Hg] Alexx [employer] [facility] [employer] 11:51:44 Social History Question Answer Notes LastModified by Organizat ion Details LastModified Time Tobacco Smoking Status Former Smoker Ang Patterson MD [address], [place], [address], [facility] [employer] [facility] 04/23/2023 15:18:12 Do You Have An Advance [...] Or The Highest Degree You Have Received? [id number] Information not available 04/23/2023 Have There Been [...] Do You Have A Medical Power Of Coordinate Measuring Machine Operator? No Information not available 04/23/2023 [...] anxious, or unable to sleep at night)? [id number] Information not available 04/23/2023 Family History Nothing [...] HAVE YOU BEEN HOSPITALIZED OR SEEN IN [facility] IN THE PAST YEAR ? [...] ICD10 Code Diagnosis IMO Codes Diagnosis Note [id number] Ang Patterson MD [address] [address] 04/23/2023 14:37:09 04/23/2023 15:24:12 Depressive disorder 12514329 F32.A Anxiety disorder 5975354 06 F41.9 Post-traum atic stress disorder 58193839 F43.10 Obesity 158482848 E66.9 Ex-smoker 8917711 Z87.89 1 Chronic neck pain 144674 9828 107 M54.2 Chronic low back pain 27 8565517 M54.50 Cervical s pondylosis without myelopathy 968481673 M47.207 [id number] Ang Patterson MD [address] [address] 05/14/2023 17:26:14 05/14/2023 17:49:44 Chronic neck pain 5856797472 107 M54.2 Chronic low back pain 27 3074293 M54.50 Cervical s pondylosis without myelopathy 174188177 M47.812 Depressive disorder 3548 9007 F32.A Anxiety disorder 0084674 06 F41.9 Post-traum atic stress disorder [id number] F43.10 Obesity 276678543 E66.9 Ex-smoker 3238781 Z87.89 1 Degenerati on of cervical intervertebral disc 42224875 M50.30 [id number] Ang Patterson MD [place] [id number] 1 06/04/2023 09:43:47 06/04/2023 10:27:29 Adult health examination 902288216 Z00.00 Chronic neck pain 674482 3890 107 M54.2 Chronic low back pain 27 1956581 M54.50 Obesity 479794717 E66.9 Ex-smoker 6426974 Z87.89 1 Otalgia of right ear 195 4994809 H92.01 Screening colonoscopy 44 2001913 Z12.11 Chronic id iopathic constipation 73882379 K59.04 Gastroesop hageal reflux disease without esophagitis 090054742 K21.9 Screening mammography 24 668262 Z12.31 Cervical s pondylosis without myelopathy 016049974 M47.812 Xerostomia 62709549 R68. 2 [id number] Ang Patterson MD [place] [phone] 1 06/25/2023 14:39:36 06/25/2023 15:24:08 Chronic neck pain 0021443318 107 M54.2 Chronic low back pain 27 4375753 M54.50 Obesity 422742290 E66.9 Ex-smoker 0627293 Z87.89 1 Chronic id iopathic constipation 66411344 K59.04 Gastroesop hageal reflux disease without esophagitis 420736766 K21.9 Cervical s pondylosis without myelopathy 101188920 M47.812 Xerostomia 89648971 R68. 2 Anemia 522570493 D64.9 [id number] Ang Patterson MD [address] [address] 07/18/2023 15:27:03 07/18/2023 15:47:18 Chronic neck pain 0933320305 107 M54.2 Chronic low back pain 27 0393751 M54.50 Obesity 804367089 E66.9 [id number] Ang Patterson MD [address] [address] 1 08/22/2023 10:25:27 08/22/2023 10:43:48 Obesity 996211301 E66.9 Gastroesop hageal reflux disease without esophagitis 217633255 K21.9 Depressive disorder 3548 9007 F32.A [id number] Ang Patterson MD [address] [address] 1 10/24/2023 09:54:39 10/24/2023 10:45:37 Gastroesophageal reflux disease without esophagitis 640087406 K21.9 Obesity 689811525 E66.9 Vitamin D deficiency 347 96141 E55.9 Hyperlipidemia 41192449 E78.5 Pain of bi lateral hands 2275365905 5388123 M79.641 Screening colonoscopy 44 3557528 Z12.11 [id number] Ang Patterson MD [address] [address] 1 01/29/2024 13:56:02 01/29/2024 14:34:01 Intussusception of small intestine 214331777 K56.1 Chronic id iopathic constipation 21421069 K59.04 Obesity 688814201 E66.9 [id number] Ang Patterson MD [address] [address] 1 03/12/2024 09:48:48 03/12/2024 11:12:17 Vitamin D deficiency 70858219 E55.9 Hyperlipidemia 45451396 E78.5 Gastroesop hageal reflux disease without esophagitis 473586919 K21.9 Obesity 607361016 E66.9 Pain of bi lateral hands 8481860530 6070104 M79.641 Hospital i npatient stay within past 30 days 3264747626 106 Z76.89 Transition of care 80841 25639 105 Z75.8 Pulmonary embolism 54849 003 I26.99 Cervical s pondylosis without myelopathy 856076800 M47.812 Pulmonary embolism with pulmonary infarction 3197472496 102 I26.99 [id number] Ang Patterson MD [place] [address] 1 03/31/2024 15:36:12 03/31/2024 16:29:17 Transition of care 0489288116 105 Z75.8 Pulmonary embolism 40141 003 I26.99 Vitamin D deficiency 347 70700 E55.9 Hyperlipidemia 00267215 E78.5 Gastroesop hageal reflux disease without esophagitis 239739898 K21.9 Obesity 498940622 E66.9 Pain of bi lateral hands 9348403886 6330309 M79.641 Cervical s pondylosis without myelopathy 192254995 M47.812 Pulmonary embolism with pulmonary infarction 8993598709 102 I26.99 Dyspnea on exertion 6084 5006 R06.09 Screening for malignant neoplasm of colon 891088708 Z12.11 [id number] Ang Patterson MD [place] 502644-144 1 04/09/2024 11:38:36 04/09/2024 14:39:32 Transition of care 0872623644 105 Z75.8 Pulmonary embolism 51220 003 I26.99 Vitamin D deficiency 347 19164 E55.9 Hyperlipidemia 14888722 E78.5 Gastroesop hageal reflux disease without esophagitis 219982206 K21.9 Obesity 892963246 E66.9 Pain of bi lateral hands 2621470928 4252107 M79.641 Cervical s pondylosis without myelopathy 052559659 M47.812 Pulmonary embolism with pulmonary infarction 7093118952 102 I26.99 Dyspnea on exertion 6084 5006 R06.09 Tremor 30319626 R25.1 Hospital i npatient stay within past 30 days 0843151411 106 Z76.89 Health Concerns Section Related Observation LastModified by Organization Detai ls LastModified Time None Recorded Concern Status LastModified by Organization Details LastModified Time None Recorded Advance Directives Directive N: Payers Insurance Date Sequence Insurance Name Policy Number Policy Walsh Covered Member ID Walsh Member ID Guarantor Name 03/31/2024 1 [facility] [facility] [employer] [facility] - DOS PRIOR TO 2025 (MEDICAID REPLACEMENT - HMO) [id number] Anat Phelan [id number] Anat Phelan 12/26/2023 1 *SELF PAY* Ka rla Camdenenberger 03/30/2024 1 *SELF PAY* Ka rla Camdenenberger 03/31/2024 1 [place] [facility] - DOS PRIOR TO 2025 (MEDICAID REPLACEMENT - HMO) [id number] Anat Hannahchristianne [id number] Anat Phelan 03/31/2024 2 [place] Anat Phelan [id number] Anat Hannahchristianne 03/31/2024 1 [place] Anat Phelan [id number] Anat Camdenchristianne 03/31/2024 2 [place] Anat Camdenchristianne [id number] Anat Hannahchristianne 03/31/2024 2 [place] Anat Camdenchristianen [id number] Anat Hannahchristianne 01/05/2025 1 [place] Anat Camdenchristianne [id number] Anat Hannahchristianne 03/31/2024 2 [place] CORRECTIONS Anat Phelan [id number] Anat Phelan Notes Date Note Type Note [...] and is f/u with Psych at [facility] for it. Pt is on meds by them and is doing overall well with it. Denies any mood swings/SI/HI. Pt was f/u with Endo at [facility] and is on chronic Prednisone from them for last couple years. Ang Patterson MD [address], [place], [address], [employer] 10/24/2023 10:42:51 01/29/2024 text/html Anat Phelan is [...] speak with case managment. SHIRA Mckeon [address] [facility] [address], [address], [place], [address], [employer] 01/29/2024 14:33:48 03/12/2024 text/html Hospital fuv:Pt has some insurance issues going on. Pt was admitted to [facility] on 02/22/24 due to not feeling well. Pt was found to have Pneumonia, PE, pulmonary infarction, pulmonary edema. Pt has finished her antibiotics and she is on Eliquis and Riverton. Pt is needing refill on them. Pt will be seeing Pulmo at [place] in few weeks. Pt has home O2 [...] and is f/u with Psych at [facility] for it. Pt is on meds by them and is doing overall well with it. Denies any mood swings/SI/HI. Pt was f/u with Endo at [facility] and is on chronic Prednisone from them for last couple years. Ang Patterson MD [address] [place] [address], [facility] [address], [place], [address], [facility] [employer] 03/12/2024 11:10:25 03/31/2024 text/html Hospital fuv: Pt was seen in ED again on 03/25/24 due to SOB and chest pain and got work up done and was found to have Pneumonia. So pt was d/c on Z-jeanmarie and hydrocodone from ED. Pt has finished Z-jeanmarie and is feeling much better now. No fever/chills/n/v/d/sp utum. Pt will be seeing Pulmo at [place] on 04/08/24. Pt has home O2 set up done already and she has with her. Pt was admitted to [facility] on 02/22/24 due to not feeling well. Pt was found to have Pneumonia, PE, pulmonary infarction, pulmonary edema. Pt has finished her antibiotics and she is on Eliquis and Riverton. Pt is needing refill on them. Pt [...] and is f/u with Psych at [facility] for it. Pt is on meds by them and is doing overall well with it. Denies any mood swings/SI/HI. Pt was f/u with Endo at [facility] and is on chronic Prednisone from them for last couple years. Ang Patterson MD [address] [place] [address], [facility] [address], [place], [address], [place] [facility] [employer] 03/31/2024 16:13:31 04/09/2024 text/html Hospital fuv: Pt [...] body pain and she is asking for Riverton. Pt is not taking her Gabapentin. Pt was seen couple weeks ago and was given Riverton by me # 40 on 03/21/24 and [...] week. Pt is f/u with Pulmo at [place] for her Pneumonia, PE and chronic hypoxia and is on meds by them. Pt has home O2 set up for her home. Pt was admitted to [facility] on 02/22/24 due to not feeling well. Pt was found to have Pneumonia, PE, pulmonary infarction, pulmonary edema. Pt has finished her antibiotics and she is on Eliquis and Riverton. Pt is needing refill on them. Pt [...] and is f/u with Psych at [facility] for it. Pt is on meds by them and is doing overall well with it. Denies any mood swings/SI/HI. Pt was f/u with Endo at [facility] and is on chronic Prednisone from them for last couple years. Ang Patterson MD [address], [place] [address], [place], [address], [facility] [employer] 04/09/2024 14:38:39 OBGyn Episode No OBEpisode recorded.
--- OUTSIDE RECORDS SUMMARY | 2025-09-01 15:40 | XMS_ITS | Encounter Summary ---
Author Organization [facility] Address [address] [place] [address] Phone Care Team Providers Care Pre Parole Counseling Aide Name Role Phone Kendrick Chacon MD Unavailable Edy Yadav MD Unavailable Keven Gonzalez DO Primary Care Provider [phone] Encounter Details Date Type Department Care Team (Late st Contact Info) Description 08/03/2025 Results Follow-Up [facility] Medicine Rheumatology [address] [facility] Advanced Medicine 5th [place] [address] [place] [address] Jessie Sherwood MD [address] [facility] [address] [place] [address] XR Hand Bilateral 3 or [...] 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
--- OUTSIDE RECORDS SUMMARY | 2025-09-01 15:40 | XMS_ITS | Clinical Summary ---
Author Organization [facility] Address [address] [place] [address] Care Team Providers Care Overnight Associate Name Role Phone Kendrick Chacon MD [...] Department Care Team Description 08/03/2025 Results Follow-Up [facility] Medicine Rheumatology [address] [place] [address] Advanced Medicine 5th [place] [address] [place] [address] Jessie Sherwood MD XR Hand Bilateral 3 or More Views of Each 07/28/2025 11:21 AM PRODUCT SAFETY MANAGER - 07/28/2025 11:59 PM PRODUCT SAFETY MANAGER Hospital Encounter [facility] [address] [place] [address] Jessie Sherwood MD Rheumatoid arthritis 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 factor (HCC) Discharge Disposition: Discharge to home or self care 07/28/2025 10:20 AM PRODUCT SAFETY MANAGER [facility] [address] [place] [address] Advanced Medicine 5th [place] [address] [place] [address] Jessie Sherwood MD Rheumatoid arthritis of multiple [...] 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 Not on file Not on file Last Filed Vital Signs Vital Sign Reading Time Taken Comments Blood Pressure 132/81 07/28/2025 10:24 AM PRODUCT SAFETY MANAGER Pulse 73 07/28/2025 10:24 AM PRODUCT SAFETY MANAGER Temperature 36.7 C (98.1 F) 07/28/2025 10:24 AM PRODUCT SAFETY MANAGER Respiratory Rate 18 05/10/2021 3:55 PM CDT Oxygen Saturation 97% 05/10/2021 3:55 PM CDT Inhaled Oxygen Concentration - - Weight 83 kg (183 lb) 07/28/2025 10:24 AM PRODUCT SAFETY MANAGER Height 165.1 cm (5' 5) 07/28/2025 10:24 AM PRODUCT SAFETY MANAGER Body Mass Index 30.45 07/28/2025 10:24 AM PRODUCT SAFETY MANAGER Plan of Treatment Health Maintenance Due Date [...] Read Routine (OP Routine) 07/28/2025 11:33 AM PRODUCT SAFETY MANAGER Rheumatoid arthritis 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 factor (HCC) XR WRIST BILATERAL 3 OR MORE VIEWS Schedule Routine, Read Routine (OP Routine) 07/28/2025 11:33 AM PRODUCT SAFETY MANAGER Rheumatoid arthritis 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 factor (HCC) HEPATITIS C ANTIBODY Routine 07/15/2024 12:49 PM PRODUCT SAFETY MANAGER Effusion of joint, unspecified location Arthralgia, unspecified joint from Last 3 Months or Most Recently Relevant to Health Maintenance Results * XR Wrist Bilateral 3 or More Views (07/28/2025 11:33 AM PRODUCT SAFETY MANAGER) Anatomical Region Laterality Modality Upper Extremities, Wrist Compute d Radiography 07/28/2025 12:2 1 PM PRODUCT SAFETY MANAGER Impressions 07/28/2025 12:21 PM PRODUCT SAFETY MANAGER 1. 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 Electronically signed by: Alvaro Zimmer M.D. Narrative 07/28/2025 12:21 PM PRODUCT SAFETY MANAGER EXAMINATION: XR WRIST BILATERAL 3 OR MORE [...] More Views of Each (07/28/2025 11:33 AM PRODUCT SAFETY MANAGER) Anatomical Region Laterality Modality Upper Extremities, Hand Computed Radiography 07/28/2025 12:2 1 PM PRODUCT SAFETY MANAGER Impressions 07/28/2025 12:21 PM PRODUCT SAFETY MANAGER 1. 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 Electronically signed by: Alvaro Zimmer M.D. Narrative 07/28/2025 12:21 PM PRODUCT SAFETY MANAGER EXAMINATION: XR WRIST BILATERAL 3 OR MORE [...] Hepatitis C antibody Blood (07/15/2024 12:49 PM PRODUCT SAFETY MANAGER) Hep C Ab Nonreactive Nonreactive Comment:Antibodies to HCV no t detected. Does NOT exclude the possibility of recent exposure to HCV. Current interpretive data was last revised on 22 Blood 07/15/2024 12:4 9 PM PRODUCT SAFETY MANAGER 07/15/2024 1:25 PM PRODUCT SAFETY MANAGER Jessie Sherwood MD LAB MICROBIOLOGY - GENERAL ORDERABLES Final Result [facility] Department [place] [address] from Last 3 Months or Most Recently Relevant to Health Maintenance Insurance [facility] Care Teams Overnight Associate Relationship Specialty Start Date End Date Keven Gonzalez DO [address] [place] [address] PCP - General Family Medicine 05/29/24 Kendrick Chacon MD Emergency Medicine 04/27/20 Edy Yadav MD [address] [facility], [place] [address] Consulting Physician Pain Management 04/28/21
[2025-09-01 15:46] VITALS: BP 143/82; PULSE 90; RESP 17; TEMP 36.9; O2SAT 100
--- NOTE | 2025-09-01 17:40 | ED.EXTPRO ---
HPI - Extremity Problem General Chief complaint: Extremity Problem,Nontraumatic <LANDY Staley Last Filed: 09/01/25 17:50> Stated complaint: numbness/tingling left leg post infusion pump <LANDY Staley Last Filed: 09/01/25 17:50> Time Seen by Provider: 09/01/25 17:40 <LANDY Staley Last Filed: 09/01/25 17:50> Focused HPI: Patient is a 50 y/o female who presents to the ED with c/o low back pain. Patient reports she had surgery for an infusion pain pump placement on 08/16 in her right intrathecal space by Dr. Mcdonald. Had been doing well initially after the surgery. Since Saturday, she has had numbness/tingling in her L lower back, L buttock region, LLE. Also reports having worsening pain in her lumbar region since Saturday. States she is hardly able to walk d/t the pain. Has been taking robaxin, tylenol, tegretol for the pain w/o improvement. Took Tylenol and muscle relaxer prior to arrival. Denies fall or injury. Denies saddle anesthesia. Denies bowel or bladder incontinence. GENERAL: Well-appearing, well-nourished, and in no acute distress. HEAD: Normocephalic, atraumatic. CHEST: Clear to auscultation. ?No respiratory distress. HEART: Regular rate and rhythm.? MSK: Diffuse tenderness throughout lumbosacral region. Sensation intact. No palpable bony deformities. NEURO: ?Alert and oriented x3. Patient screened in triage and initial orders placed.? ?Additional care and disposition to be based upon?diagnostic testing and treatment. <LANDY Staley Last Filed: 09/01/25 17:50> Source: patient <LANDY Staley Last Filed: 09/01/25 17:50> Mode of arrival: ambulatory <LANDY Staley Last Filed: 09/01/25 17:50> Limitations: no limitations <LANDY Staley Last Filed: 09/01/25 17:50> Related Data Home medications: Home Medications ?Medication ?Instructions ?Recorded ?Confirmed ?Last Taken ?Type citalopram 40 mg tablet 40 mg PO DAILY 09/06/22 08/13/25 06/15/25 History atorvastatin 10 mg tablet 10 mg PO QPM 10/01/24 08/13/25 06/14/25 History bupropion HCl 300 mg 24 hr tablet, 300 mg PO DAILY 10/01/24 08/13/25 06/15/25 History extended release hydroxychloroquine 200 mg tablet 200 mg PO Q12H 10/01/24 08/13/25 06/15/25 History ergocalciferol (vitamin D2) 1,250 50,000 unit PO WEEKLY 11/10/24 08/13/25 06/15/25 History mcg (50,000 unit) capsule linaclotide 72 mcg capsule 72 mcg PO DAILY 02/09/25 08/13/25 06/15/25 History (Linzess) <Sushma Noguera PA-C - Last Filed: 09/01/25 17:50> Allergies/Adverse reactions: Allergies Allergy/AdvReac Type Severity Reaction Status Date / Time naproxen AdvReac Gastrointestinal Verified 09/01/25 15:49 Upset <Sushma Noguera PA-C - Last Filed: 09/01/25 17:50> Review of Systems Review of Systems: All systems reviewed & are unremarkable except as noted in HPI and below <Taylor Smith PA-C - Last Filed: 09/01/25 19:45> [facility] Past Medical History Medical History: Medical History Irritable bowel syndrome with constipation Choking Rheumatoid arthritis Chronically dry eyes Former cigarette smoker History of rhabdomyolysis December 2023 Spondylosis, lumbosacral Degenerative disc disease, lumbar L4-S1 Degenerative disc disease, cervical C4-C7 Chronic back pain Neck and low back Irritable bowel syndrome Gastroesophageal reflux disease Chronic obstructive pulmonary disease Labral tear of right hip joint Asthma Depression Anxiety <Sushma Noguera PA-C - Last Filed: 09/01/25 17:50> Surgical History Surgical History: Surgical History History of colonoscopy with polypectomy (~1999) History of right cataract surgery Status post anal fissurectomy History of section (2017) X1 History of tonsillectomy History of cholecystectomy <Sushma Noguera PA-C - Last Filed: 09/01/25 17:50> Family History Family History: Family History Father Diabetes mellitus Hypertension Mother Hypertension Osteoarthritis Rheumatoid arthritis Grandparent Breast cancer Sibling Lupus <Sushma Noguera PA-C - Last Filed: 09/01/25 17:50> Social History Social History: Social History Social History: She is . She lives at home with her 7-year-old daughter she has 2 grown sons other well. She smoked 1 pack of cigarettes per day for twenty-two years but quit in 2020. She denies any significant alcohol use. She denies illicit substance use. She works at an [employer]. Surrogate medical decision maker: Flakito Phelan, lon. Code status: Full code. Smoking packs per day: 1 Smoking cigarettes per day: 20.0 Years smoked: 30 Smoking pack-years: 30.00 Smoking status: Former smoker Tobacco type: cigarettes Second hand tobacco smoke exposure: Yes Smoking end date: 09/02/20 Alcohol intake: never Substance use: never Substance use type: does not use Other substance usage details: denies IVDU Lack of Transportation: No Lack of Food: Sometimes True Current Housing: I Have Housing Concerned About Future Housing: No Difficulty Paying Gas/Electric Bills: YES Difficulty Paying for Meds: No Currently Unemployed: No Education: Trade/Vocational Certificate Difficulty w/ Childcare or Family Care: No Living arrangements: alone Additional living arrangements comments: sons and daughter Spiritual care concerns: No <Sushma Noguera PA-C - Last Filed: 09/01/25 17:50> Exam Narrative: GENERAL: Well-appearing, well-nourished, and in no acute distress. HEAD: Normocephalic, atraumatic. EYES: EOMI. CHEST: Clear to auscultation. No respiratory distress. No wheezes rales or rhonchi HEART: Regular rate and rhythm. No murmur heard. Normal peripheral pulses. BACK: Incision is clean, dry, intact without overlying erythema or abnormal drainage EXTREMITIES: Normal range of motion. No edema. Strength equal in bilateral lower extremities (5/5) SKIN: Warm, dry, no rash. NEURO: No focal deficits. Alert and oriented x3. PSYCH: Normal mood and affect <LANDY Gonzalez Last Filed: 09/01/25 19:45> Course Vital Signs Vital signs: Vital Signs Temperature 98.4 F 09/01/25 15:46 Pulse Rate 90 09/01/25 15:46 Respiratory Rate 17 09/01/25 15:46 Blood Pressure 143/82 H 09/01/25 15:46 Pulse Oximetry 100 09/01/25 15:46 Oxygen Delivery Room Air 09/01/25 15:46 Temperature 98.4 F 09/01/25 15:46 Pulse Rate 83 09/01/25 19:15 Respiratory Rate 16 09/01/25 19:15 Blood Pressure 128/61 09/01/25 19:15 Pulse Oximetry 96 09/01/25 19:15 Oxygen Delivery Room Air 09/01/25 19:15 <LANDY Staley Last Filed: 09/01/25 17:50> Vital Signs Temperature 98.4 F 09/01/25 15:46 Pulse Rate 90 09/01/25 15:46 Respiratory Rate 17 09/01/25 15:46 Blood Pressure 143/82 H 09/01/25 15:46 Pulse Oximetry 100 09/01/25 15:46 Oxygen Delivery Room Air 09/01/25 15:46 Temperature 98.4 F 09/01/25 15:46 Pulse Rate 83 09/01/25 19:15 Respiratory Rate 16 09/01/25 19:15 Blood Pressure 128/61 09/01/25 19:15 Pulse Oximetry 96 09/01/25 19:15 Oxygen Delivery Room Air 09/01/25 19:15 <LANDY Gonzalez Last Filed: 09/01/25 19:45> MDM MDM Narrative Medical decision making narrative: MSE by RENNY in triage <LANDY Staley Last Filed: 09/01/25 17:50> MSE by RENNY in triage Patient presents the emergency department for acute on chronic low back pain. Recently had a pain pump placed. Started to have pain in the left lower back radiating down the left leg. She is afebrile and nontoxic appearing. Her incision is clean, dry and intact without overlying redness, swelling, or any abnormal drainage. Her vitals are stable. She is neurologically intact. CT lumbar spine shows severe lower lumbar spondylosis. Small amount of likely postoperative non loculated fluid in the subcutaneous tissue. Patient with relief after a dose of oxycodone. Will be started on Medrol taper. Follow up with her touch up painter <Taylor Smith PA-C - Last Filed: 09/01/25 19:45> Differential Diagnosis Differential Diagnosis: sciatica, lumbar radiculopathy, chronic pain, lumbar spondylosis, post op complication <Taylor Smith PA-C - Last Filed: 09/01/25 19:45> Imaging Data Radiologist's impression: ITS Impressions Lumbar Spine CT 09/01/25 18:23 IMPRESSION: 1. Severe lower lumbar spondylosis. No acute osseous abnormality. 2. Small amount of likely postoperative nonloculated fluid in the subcutaneous tissues surrounding the recently placed intrathecal pain pump and catheter distal tip which is positioned in the central canal at the level of the inferior endplate of T9. <Sushma Noguera PA-C - Last Filed: 09/01/25 17:50> ITS Impressions Lumbar Spine CT 09/01/25 18:23 IMPRESSION: 1. Severe lower lumbar spondylosis. No acute osseous abnormality. 2. Small amount of likely postoperative nonloculated fluid in the subcutaneous tissues surrounding the recently placed intrathecal pain pump and catheter distal tip which is positioned in the central canal at the level of the inferior endplate of T9. <Taylor Smith PA-C - Last Filed: 09/01/25 19:45> Critical Care Time Critical Care Time Critical Care Time: No <LANDY Gonzalez Last Filed: 09/01/25 19:45> Discharge Plan Discharge Clinical Impression: Low back pain Qualifiers: Chronicity: acute Back pain laterality: left Sciatica presence: with sciatica Sciatica laterality: sciatica of left side Qualified Code(s): M54.42 - Lumbago with sciatica, left side <LANDY Staley Last Filed: 09/01/25 17:50> Patient Disposition: Home <LANDY Staley Last Filed: 09/01/25 17:50> Condition: Improved <LANDY Staley Last Filed: 09/01/25 17:50> Instructions: Sciatica (ED) <LANDY Staley Last Filed: 09/01/25 17:50> Additional Instructions: Return to the ER if you experience weakness, numbness, bowel/bladder incontinence, or any other symptoms that are concerning to you Rest, use ice/heat, take Tylenol as needed for pain as well as muscle relaxer as needed for pain. Muscle relaxers can make you drowsy, do not drive if you take this. Take steroid taper as prescribed. Prescribed pain medication as needed Follow up with your pain management doctor <LANDY Staley Last Filed: 09/01/25 17:50> Patient Language: Chilean <LANDY Staley Last Filed: 09/01/25 17:50> Prescriptions: New hydrocodone-acetaminophen 5-325 mg tablet 1 tablet PO Q8H PRN (Reason: pain) Qty: 10 0RF methylprednisolone 4 mg tablets,dose pack See Rx Instructions .ROUTE .COMPLEX Qty: 21 0RF Rx Instructions: orally per package directions No Action albuterol sulfate 90 mcg/actuation HFA aerosol inhaler 2 puff inhalation Q4-6H PRN (Reason: shortness of breath or wheezing) 30 Days Qty: 8.5 0RF ferrous sulfate [FeroSul] 325 mg (65 mg iron) tablet 325 mg PO DAILY Qty: 90 2RF ergocalciferol (vitamin D2) 1,250 mcg (50,000 unit) capsule 50,000 unit PO WEEKLY Linzess 72 mcg capsule 72 mcg PO DAILY naloxone [Narcan] 4 mg/actuation spray,non-aerosol 4 mg intranasal Q2M PRN (Reason: opioid overdose) Qty: 2 0RF Rx Instructions: spray 1 dose into ONE nostril; alternate nostrils w each dose until help arrives. Must bring to the Pain Pump trial and to be kept at home during recovery of the trial. triamcinolone acetonide 0.1 % ointment 1 applic topical DAILY Qty: 80 1RF citalopram 40 mg tablet 40 mg PO DAILY atorvastatin 10 mg tablet 10 mg PO QPM bupropion HCl 300 mg tablet extended release 24 hr 300 mg PO DAILY hydroxychloroquine 200 mg tablet 200 mg PO Q12H budesonide-formoterol [Symbicort] 160-4.5 mcg/actuation HFA aerosol inhaler See Rx Instructions .ROUTE .COMPLEX Qty: 10.2 6RF Dose Instruction: INHALE 2 PUFFS BY MOUTH EVERY 12 HOURS Rx Instructions: INHALE 2 PUFFS BY MOUTH EVERY 12 HOURS famotidine 40 mg tablet See Rx Instructions .ROUTE .COMPLEX Qty: 90 0RF Dose Instruction: TAKE 1 TABLET BY MOUTH AT BEDTIME Rx Instructions: TAKE 1 TABLET BY MOUTH AT BEDTIME carbamazepine 200 mg tablet See Rx Instructions .ROUTE .COMPLEX Qty: 60 2RF Dose Instruction: TAKE 1 TABLET BY MOUTH EVERY 12 HOURS Rx Instructions: TAKE 1 TABLET BY MOUTH EVERY 12 HOURS pantoprazole 40 mg tablet,delayed release (DR/EC) 40 mg PO BID Qty: 60 5RF furosemide 20 mg tablet See Rx Instructions .ROUTE .COMPLEX Qty: 90 0RF Dose Instruction: TAKE 1 TABLET BY MOUTH DAILY Rx Instructions: TAKE 1 TABLET BY MOUTH DAILY prochlorperazine maleate 5 mg tablet See Rx Instructions .ROUTE .COMPLEX Qty: 20 0RF Dose Instruction: TAKE 1 TABLET BY MOUTH EVERY 8 HOURS NEEDED FOR NAUSEA OR VOMITING Rx Instructions: TAKE 1 TABLET BY MOUTH EVERY 8 HOURS NEEDED FOR NAUSEA OR VOMITING methocarbamol 500 mg tablet See Rx Instructions .ROUTE .COMPLEX Qty: 90 0RF Dose Instruction: TAKE 1 TABLET BY MOUTH THREE TIMES DAILY NEEDED FOR MUSCLE SPASM Rx Instructions: TAKE 1 TABLET BY MOUTH THREE TIMES DAILY NEEDED FOR MUSCLE SPASM oseltamivir [Tamiflu] 75 mg capsule 75 mg PO Q12H 5 Days Qty: 10 0RF <Sushma Noguera PA-C - Last Filed: 09/01/25 17:50> Follow-up/Referrals: Keven Gonzalez DO [Primary Care Provider, Family Practice] <Sushma Noguera PA-C - Last Filed: 09/01/25 17:50>
[2025-09-01] MEDS: oxyCODONE HCL (*CRX) 5 MG TAB IR PO (17:49)
[2025-09-01 19:15] VITALS: BP 128/61; PULSE 83; RESP 16; O2SAT 96
[2025-09-01 20:01] VITALS: BP 124/72; PULSE 77; RESP 16; O2SAT 98
== END 2025-09-01 20:03 | disposition home or self-care (01) ==
LOC: ANHED 20:03
PROVIDERS: Emergency Provider Physician Assistant; PCP Family Medicine
DX: M54.42 Lumbago with sciatica, left side (principal); K21.9 Gastro-esophageal reflux disease without esophagitis; J44.9 Chronic obstructive pulmonary disease, unspecified; M06.9 Rheumatoid arthritis, unspecified; Z87.891 Personal history of nicotine dependence
CPT/HCPCS: 72131; 99284; A9270